=== PATIENT | male | born 1955 | race Caucasian/White ===

== ENCOUNTER → 2024-07-25 | Outpatient (CLI) | payer MEDICARE, OTHER, SELFPAY ==
--- NOTE | 2024-07-25 08:44 | VDLE_ITS ---
Reason For Study Reason For Study: Pain RIGHT LEFT CFV is compressible, spontaneous, phasic, competent CFV is compressible, spontaneous, phasic, competent, and demonstrates normal augmentation. and demonstrates normal augmentation. FV is compressible, spontaneous, phasic, competent FV is compressible, spontaneous, phasic, competent and demonstrates normal augmentation. and demonstrates normal augmentation. POP V is compressible, spontaneous, phasic, competent POP V is compressible, spontaneous, phasic, competent and demonstrates normal augmentation. and demonstrates normal augmentation. T/P Trunk is compressible. T/P Trunk is compressible. PTV is compressible. PTV is compressible. RT PerV is compressible. LT PerV is compressible. SFJ is INCOMPETENT and measures 0.99 cm. SFJ is INCOMPETENT and measures 0.82 cm. GSV proximal thigh measures 0.97x0.99 cm. GSV proximal thigh measures 0.70x0.77 cm. GSV at knee measures 0.74x0.77 cm. GSV at knee measures 0.15x0.20 cm. GSV INCOMPETENT throughout for greater than 0.5 GSV INCOMPETENT throughout for greater than 0.5 seconds. seconds. ASV proximal calf is INCOMPETENT for greater than 0.5 GSV at knee to mid calf no flow detected. seconds and measures 0.34x0.43 cm. ASV at knee connects to feed GSV mid calf. SSV mid calf is competent and measures 0.27x0.32 cm. ASV at knee is INCOMPETENT for greater than 0.5 GSV train master at proximal calf measuring 32cm from seconds and measures 0.56x0.65 cm. medial malleolusis INCOMPETENT for greater than 0.5 ASV proximal thigh is INCOMPETENT for greater than seconds. 0.5 seconds and measures 0.32x0.38 cm. Procedure SSV mid calf is competent and measures 0.17x0.16 cm. This is a venous duplex using B-mode, color flow and spectral Doppler. Exam performed in department. The exam was diagnostic. Patient was scanned in reverse Trendelenburg position during reflux assessment. VL/Venous Duplex US - Neeraj Extrem Interpretation Summary Deep veins of the bilateral lower extremity are patent and compressible segment ally. There is no evidence of bilateral lower extremity deep vein thrombosis. The bilateral great saphenous veins appea r patent and compressible segmentally. Positive for reflux in the right saphenofemoral junction, great saphenous vein throughout, accessory saphenous vein in calf, and proximal calf train master. Positive for reflux in the left saphenofemoral junction, great saphenous vein t hroughout, accessory saphenous vein proximal thigh, accessory saphenous vein at knee Ordering Physician: Lizbeth Guevara Referring Physician: Denton Connor DO Performed By: Jaylene Le RVT and Student
== END | disposition home or self-care (01) ==
LOC: CVS 08:43
PROVIDERS: PCP Family Medicine; Referring Provider Physician Assistant; Visit Provider Physician Assistant
DX: I83.11 Varicose veins of right lower extremity with inflammation (principal); I83.12 Varicose veins of left lower extremity with inflammation; I83.893 Varicose veins of bilateral lower extremities with other complications
CPT/HCPCS: 93970

== ENCOUNTER → 2024-08-12 | Outpatient (CLI) | payer MEDICARE, OTHER, SELFPAY ==
--- NOTE | 2024-08-12 10:42 | VDLE_ITS ---
Reason For Study Reason For Study: Pain RIGHT LEFT GSV is normal. CFV is compressible, spontaneous, phasic, competent, CFV is compressible, spontaneous, phasic, competent and demonstrates normal augmentation. and demonstrates normal augmentation. FV is compressible, spontaneous, phasic, competent and demonstrates normal augmentation. POP V is compressible, spontaneous, phasic, competent and demonstrates normal augmentation. T/P Trunk is compressible. PTV is compressible. RT PerV is compressible. Thrombus filled varicose veins noted in the Rt prox calf to knee. Procedure This is a venous duplex using B-mode, color flow and spectral Doppler. Exam performed in department. A preliminary report was called and/or faxed to SAMEER Burnett. VL/Venous Duplex US, Unilateral Interpretation Summary Thrombus filled varicose veins noted in the right proximal calf to knee. Deep veins of the right lower extremity are patent and compressible segmentally . There is no evidence of right lower extremity deep vein thrombosis. The right great saphenous vein appears patent a nd compressible segmentally. Ordering Physician: Lizbeth Guevara Referring Physician: Lizbeth Guevara Performed By: Joy Braxton RVT
== END | disposition home or self-care (01) ==
LOC: CVS 10:32
PROVIDERS: PCP Family Medicine; Referring Provider Physician Assistant; Visit Provider Physician Assistant
DX: M79.89 Other specified soft tissue disorders (principal); M79.604 Pain in right leg
CPT/HCPCS: 93971

== ENCOUNTER → 2024-09-28 | Outpatient (CLI) | payer MEDICARE, OTHER, SELFPAY ==
--- NOTE | 2024-09-28 12:53 | VDLE_ITS ---
Reason For Study Reason For Study: LE Pain RIGHT LEFT Rt GSV is DILATED and NONCOMPRESSIBLE from CFV is compressible, spontaneous, phasic, competent, approximately 0.96cm distal to SFJ and ending and demonstrates normal augmentation. approximately mid calf. CFV is compressible, spontaneous, phasic, competent and demonstrates normal augmentation. FV is compressible, spontaneous, phasic, competent and demonstrates normal augmentation. POP V is compressible, spontaneous, phasic, competent and demonstrates normal augmentation. T/P Trunk is compressible. PTV is compressible. RT PerV is compressible. Procedure This is a venous duplex using B-mode, color flow and spectral Doppler. Exam performed in department. Compare to study 08/12/2024. The exam was diagnostic. A preliminary report was called and/or faxed to [facility] Gue[facility]a [facility]. VL/Venous Duplex US, Unilateral Interpretation Summary Acute superficial vein thrombosis noted at saphenofemoral junction and great sa phenous vein throughout. Deep veins of the right lower extremity are patent and compressible segmentally . There is no evidence of right lower extremity deep vein thrombosis. Ordering Physician: Lizbeth Guevara Referring Physician: Denton Connor Performed By: Jeromy Paredes RVT
== END | disposition home or self-care (01) ==
LOC: CVS 12:52
PROVIDERS: PCP Family Medicine; Referring Provider Physician Assistant; Visit Provider Physician Assistant
DX: I82.811 Embolism and thrombosis of superficial veins of right lower extremity (principal); I87.2 Venous insufficiency (chronic) (peripheral)
CPT/HCPCS: 93971

== ENCOUNTER → 2024-11-09 | Outpatient (CLI) | payer MEDICARE, OTHER, SELFPAY ==
--- NOTE | 2024-11-09 09:47 | VDLE_ITS ---
Reason For Study Reason For Study: RLE PAIN RIGHT Rt GSV is DILATED and NONCOMPRESSIBLE from approximately 1.26cm distal to SFJ and ending approximately proximal calf. CFV is compressible, spontaneous, phasic, competent and demonstrates normal augmentation. FV is compressible, spontaneous, phasic, competent and demonstrates normal augmentation. POP V is compressible, spontaneous, phasic, competent and demonstrates normal augmentation. T/P Trunk is compressible. PTV is compressible. RT PerV is compressible. Procedure This is a venous duplex using B-mode, color flow and spectral Doppler. Exam performed in department. A preliminary report was called and/or faxed to Lizbeth ESTRELLA @ 10:15 @ [phone]. VL/Venous Duplex US, Unilateral Interpretation Summary Acute superficial vein thrombosis noted at saphenofemoral junction and great sa phenous vein throughout. Negative for propagation. Deep veins of the right lower extremity are patent and compressible segmentally . There is no evidence of right lower extremity deep vein thrombosis. Ordering Physician: Lizbeth Guevara Referring Physician: Denton Connor Performed By: Michela Talbert, AGUILAR, RVT
--- OUTSIDE RECORDS SUMMARY | 2024-11-09 20:36 | XMS RPT_ITS | CCD ---
Author Organization [facility] Team Providers Care Ancillary Services Manager Name Role Phone Rodanthe, Sana S Unavailable Unavailable Rodanthe, Sana S Unavailable Unavailable Rodanthe, Sana S Unavailable Unavailable Rodanthe, Sana S Unavailable Unavailable Rodanthe, Sana S Unavailable Unavailable Rodanthe, Sana S Unavailable Unavailable Rodanthe, Sana Unavailable Unavailable Rodanthe, Sana S Unavailable Unavailable Rocky, Avirup Unavailable Unavailable Rocky, Avirup Unavailable Unavailable Rodanthe, Sana S Unavailable Unavailable Unavailable , Dr. Sana Hernández Attending Unavailabl e Rodanthe, Dr. Sana Hernández Referring Unavailabl e Rodanthe, Dr. Sana Hernández Primary Care Unavailabl e Cueto II, Dr. Jaspal Levi Attending Jose Ramon Cueto II, Dr. Jaspal Levi Referring Jose Ramon Dexter, Dr. Sana Hernández Primary Care Unavailabl e Rodanthe DO, Sana S Primary Care Provider [phone] Rodanthe DO, Sana S Unavailable [phone] ROYAL, SANA S Primary Care Unavailable ROYAL, SANA S Primary Care Unavailable ROYAL, SANA S Primary Care Unavailable ROYAL, SANA S Primary Care Unavailable ROYAL, SANA S Primary Care Unavailable ROYAL, SANA S Primary Care Unavailable Rodanthe DO, Sana S Primary Care Provider [phone] Rodanthe DO, Sana S Unavailable ROYAL, SANA S Attending Unavailable ROYAL, SANA S Primary Care Unavailable ROYAL, SANA S Attending Unavailable ROYAL, SANA S Primary Care Unavailable ROYAL, SANA S Attending Unavailable ROYAL, SANA S Referring Unavailable ROYAL, SANA S Primary Care Unavailable ALESHIA ELAINE Attending Unavailable ROYAL, SANA S Referring Unavailable ROYAL, SANA S Primary Care Unavailable ROYAL, SANA S Attending Unavailable ROYAL, SANA S Primary Care Unavailable ROYAL, SANA S Attending Unavailable ROYAL, SANA S Referring Unavailable ROYAL, SANA S Primary Care Unavailable Reji DO, Harvinder R. Primary Care Provider REJI, HARVINDER R. Referring Unavailable REJI, HARVINDER R. Attending Unavailable REJI, HARVINDER R. Primary Care Unavailable Reji DO, Dr. Chawla Primary Care Provider Reji DO, Dr. Chawla Referring Provider [phone] Lizbeth Hughes Attending Provider Lizbeth Hughes Referring Provider Charles SAUNDERS, Dr. Blount Attending Provider [phone] REJI, HARVINDER RBrett Attending Unavailable REJI, HARVINDER R. Primary Care Unavailable REJI, HARVINDER R. Attending Unavailable REJI, HARVINDER R. Primary Care Unavailable Rodanthe DO, Sana S Unavailable Reji DO, Harvinder Primary Care Provider ROYAL, SANA S Referring Unavailable ROYAL, SANA S Primary Care Unavailable TAWANA ELAINEE M Referring Unavailable ROYAL, SANA S Primary Care Unavailable ALESHIA ELAINE M Referring Unavailable ROYAL, SANA S Primary Care Unavailable ALESHIA ELAINE M Referring Unavailable ROYAL, SANA S Primary Care Unavailable TAWANA ELAINEE M Referring Unavailable ROYAL, SANA S Primary Care Unavailable AMERICA ELAINEANNE M Referring Unavailable ROYAL, SANA S Primary Care Unavailable AMERICA ELAINEANNE M Referring Unavailable ROYAL, SANA S Primary Care Unavailable AMERICA ELAINEANNE M Referring Unavailable ROYAL, SANA S Primary Care Unavailable AMERICA ELAINEANNE M Referring Unavailable ROYAL, SANA S Primary Care Unavailable REJI, HARVINDER Primary Care Unavailable OLLIE JOHNSON Attending Unavailable Guevara, Lizbeth Attending Unavailable Reji, Harvinder Primary Care Unavailable Reji, Harvinder Referring Unavailable Reji, Harvinder Primary Care Unavailable Guevara, Lizbeth Attending Unavailable Reji, Harvinder Referring Unavailable Guevara, Lizbeth Referring Unavailable Jose Alejandro Soto Attending Unavailable Reji, Harvinder Primary Care Unavailable Reji, Harvinder Primary Care Unavailable Guveara, Lizbeth Attending Unavailable Guevara, Libzeth Referring Unavailable Guevara, Lizbeth Referring Unavailable Guevara, Lizbeth Attending Unavailable Reji, Harvinder Primary Care Unavailable Guevara, Lizbeth Referring Unavailable Guevara, Lizbeth Attending Unavailable Reji, Harvinder Primary Care Unavailable Guevara, Lizbeth Referring Unavailable Guevara, Lizbeth Attending Unavailable Reji, Harvinder Primary Care Unavailable Guevara, Lizbeth Attending Unavailable Guevara, Lizbeth Referring Unavailable Reji, Harvinder Primary Care Unavailable Guevara, Lizbeth Referring Unavailable Charles, Jose Alejandro Attending Unavailable Reji, Harvinder Primary Care Unavailable Reji, Harvinder Primary Care Unavailable Guevara, Lizbeth Referring Unavailable Charles, Jose Alejandro Attending Unavailable Guevara, Lizbeth Attending Unavailable Reji, Harvinder Referring Unavailable Reji, Harvinder Primary Care Unavailable Guevara, Lizbeth Attending Unavailable Reji, Harvinder Primary Care Unavailable Reji, Harvinder Referring Unavailable Allergies Allergy Classification Reported Allergen(s) Allergy Type Date of Onset Reaction(s) Facility Penicillins (antibiotic) (3 sources) Penicillins; Translations: [Penicillins] Drug Allergy [facility] Work Phone: (20 sources) Penicillins; Translations: [penicillins] Propensity to adverse reactions to drug (disorder) 3 [facility], Unknown, [facility] Repository (4 sources) Bee Venom Protein (Honey Bee); Translations: [BEE VENOM PROTEIN (HONEY BEE)] Propensity to adverse reactions to drug 5 [facility] (4 sources) Penicillin G Drug Allergy 5 [facility] (1 source) Penicillin Drug Allergy [address] [place] [address] Repository Medications Current Medications Medication Drug Class(es) Dates Sig (Normalized) Sig (Original) [id number] 200 actuat albuterol 0.09 mg/actuat metered dose inhaler (1 source) beta2-Adrenergic Agonist Start: 08-26-2024 take 1-2 puff(s) by inhalation every four hours for wheezing albuterol 90 mcg/actuation inhaler Indications: Acute bronchitis, unspecified organism Inhale 1-2 puffs every 4 hours if needed for wheezing or shortness of breath. 8.5 g 08/26/2024 Active Start: 08-26-2024 take 1-2 puff(s) by inhalation every four hours for wheezing albuterol 90 mcg/actuation inhaler Indications: Acute bronchitis, unspecified organism Inhale 1-2 puffs every 4 hours if needed for wheezing or shortness of breath. 8.5 g 08/26/2024 Active Ascorbate Calcium (Vitamin C) 500 mg capsule (4 sources) Start: 06-29-2024 take 1 g by mouth once daily Ascorbate Calcium (Vitamin C) 500 mg capsule Active 1 g PO daily June 29, 2024 1:00am Start: 06-29-2024 take 1 g by mouth once daily A scorbate Calcium (Vitamin C) 500 mg capsule Discontinued 1 g PO daily June 29, 2024 1:00am ascorbic acid 500 mg oral tablet (18 sources) Vitamin C take 1 tablet by desiree th once daily ascorbic acid (Vitamin C) 500 mg tablet Take 1 tablet (500 mg) by mouth once daily. Active Vitamin C TABS T UZIEL 1 TABLET DAILY. Refills: 0 DO Active Vitamin C TABS T UZIEL 1 TABLET DAILY. Refills: 0 Active aspirin 81 mg delayed release oral tablet (20 sources) Platelet Aggregation Inhibitor, Nonsteroidal Anti-inflammatory Drug Start: 11-28-2019 Aspirin (Adult Lo w Dose Aspirin) 81 mg tablet,delayed release (DR/EC) Active 81 mg PO daily June 14, 2024 1:00am Start: 11-28-2019 aspirin 81 MG EC tablet Take 321 mg by mouth daily Vascular dr changed . 11/28/2019 Active atorvastatin 40 mg oral tablet (20 sources) HMG-CoA Reductase Inhibitor Start: 05-20-2023 End: 08-16-2024 take 1 tablet by mouth once daily atorvastatin (Lipitor) 40 mg tablet Indications: Hyperlipidemia LDL goal Take 1 tablet (40 mg) by mouth once daily. 90 tablet 1 08/17/2023 08/16/2024 Active Start: 11-17-2022 take 1 tablet by desiree th once daily atorvastatin (Lipitor) 40 mg tablet Indications: Hyperlipidemia LDL goal Take 1 tablet (40 mg) by mouth once daily. 90 tablet 3 11/17/2022 Active Start: 11-14-2019 End: 11-17-2022 take 1 tablet by mouth once daily Atorvastatin Calcium 40 MG Oral Tablet TAKE 1 TABLET BY MOUTH EVERY DAY Quantity: 90 Refills: 1 Ordered: 18-Apr-2022 Sana Dexter DO Start : 14-Nov-2019 Active azithromycin 250 mg oral tablet (1 source) Macrolide Antimicrobial Start: 08-26-2024 azithromycin (Zithromax Z-Santosh) 250 mg tablet Indications: Acute bronchitis, unspecified organism Take 2 tablets by mouth at once on day 1, then 1 tablet once a day on days 2-5. Take with a meal. 6 tablet 08/26/2024 Active Start: 08-26-2024 azithromycin ( Zithromax Z-Santosh) 250 mg tablet Indications: Acute bronchitis, unspecified organism Take 2 tablets by mouth at once on day 1, then 1 tablet once a day on days 2-5. Take with a meal. 6 tablet 08/26/2024 Active benzonatate 100 mg oral capsule (1 source) Non-narcotic Antitussive Start: 08-26-2024 take 1-2 capsules by mouth every eight hours for cough benzonatate (Tessalon) 100 mg capsule Indications: Acute bronchitis, unspecified organism Take 1-2 capsules (100-200 mg) by mouth every 8 hours if needed for cough. Do not crush or chew. 40 capsule 08/26/2024 Active Start: 08-26-2024 take 1-2 capsules by mouth every eight hours for cough benzonatate (Tessalon) 100 mg capsule Indications: Acute bronchitis, unspecified organism Take 1-2 capsules (100-200 mg) by mouth every 8 hours if needed for cough. Do not crush or chew. 40 capsule 08/26/2024 Active diclofenac sodium 0.01 mg/mg topical gel (4 sources) Nonsteroidal Anti-inflammatory Drug Start: 11-02-2023 diclofenac sodium (Voltaren) 1 % gel Indications: osteoarthritis Apply 2.25 inches (2 g) topically 4 times a day as needed (Pain, Stiffness, & swelling). 100 g 1 11/02/2023 Active docosahexaenoic acid/epa (FISH OIL ORAL) (8 sources) docosahexaenoic acid/epa (FISH OIL ORAL) Take by mouth. Active ezetimibe 10 mg oral tablet (2 sources) Dietary Cholesterol Absorption Inhibitor Start: 04-18-2024 End: 05-12-2025 take 1 tablet by mouth once daily ezetimibe (Zetia) 10 mg tablet Indications: Hyperlipidemia LDL goal Take 1 tablet (10 mg) by mouth once daily. 90 tablet 1 05/12/2024 05/12/2025 Active lisinopril 10 mg oral tablet (20 sources) Angiotensin Converting Enzyme Inhibitor Start: 06-29-2024 take 1 tablet by mouth once daily Lisinopril 10 mg tablet Active 10 mg PO daily June 29, 2024 1:00am Start: 11-17-2022 take 2 tablets by mo [facility] once daily lisinopril 10 mg tablet Indications: Secondary hypertension Take 2 tablets (20 mg) by mouth once daily. 90 tablet 3 11/17/2022 Active Start: 11-14-2019 End: 08-16-2024 take 1 tablet by mouth once daily Lisinopril 20 mg tablet Active 20 mg PO daily June 14, 2024 1:00am Start: 11-14-2019 take 1 tablet by desiree once daily Lisinopril 10 MG Oral Tablet TAKE 1 TABLET BY MOUTH EVERY DAY Quantity: 90 Refills: 1 Ordered: 18-Apr-2022 Sana Dexter DO Start : 14-Nov-2019 Active End: 11-17-2022 take 2 tablets by mouth once daily lisinopril 10 mg tablet Take 2 tablets (20 mg) by mouth once daily. 0 11/17/2022 Discontinued (Reorder) lutein 40 mg oral capsule (4 sources) Start: 06-29-2024 take 1 capsule by mouth once daily at mealtime Lutein 40 mg capsule Active 40 mg PO daily June 29, 2024 1:00am administer with meals magnesium oxide 300 mg magnesium Tab (2 sources) magnesium oxide 300 mg magnesium Tab Take 1 tablet by mouth Thursday, Thursday, Thursday . Active magnesium oxide 300 mg magnesium tablet (10 sources) take 1 tablet by mouth three times weekly magnesium oxide 300 mg magnesium tablet Take 1 tablet by mouth 3 times a week. Active take 1 tablet by desiree three times weekly magnesium oxide 300 mg magnesium tablet Take 1 tablet by mouth 3 times a week. 0 Active Magnesium Oxide 300 mg magne sium tablet (4 sources) Start: 06-29-2024 Magnesium Oxid e 300 mg magnesium tablet Active 300 mg PO .wkly June 29, 2024 1:00am Start: 06-29-2024 Magnesium Oxid e 300 mg magnesium tablet Discontinued 300 mg PO .wkly June 29, 2024 1:00am omega-3 fatty acids-fish oil (One-Per-Day Mcgraws-3) 684-1,200 mg capsule (2 sources) End: 08-17-2023 omega-3 fatty acids-fish oil (One-Per-Day Mcgraws-3) 684-1,200 mg capsule Take by mouth. 0 08/17/2023 Discontinued (Med List Cleanup) omega-3 fatty ac ids-fish oil (One-Per-Day Mcgraws-3) 684-1,200 mg capsule Take by mouth. 0 Active pantoprazole 20 mg delayed release oral tablet (1 source) Proton Pump Inhibitor Start: 08-22-2024 take 1 tablet by mouth once daily pantoprazole (PROTONIX) 20 MG tablet Indications: Gastroesophageal reflux disease, unspecified whether esophagitis present Take 1 (one) tablet (20 mg total) by mouth daily . 30 tablet 3 08/22/2024 Active predniSONE 10 mg oral tablet (1 source) Start: 08-26-2024 take 6 tablets by mouth once daily, then take 5 tablets by mouth once daily, then take 4 tablets by mouth once daily, then take 3 tablets by mouth once daily, then take 2 tablets by mouth once daily, then take 1 tablet by mouth once daily predniSONE (Deltasone) 10 mg tablet Indications: Acute bronchitis, unspecified organism Take 6 tabs PO daily x1 day, then take 5 tabs daily x1 day, then take 4 tabs daily x1 day, then take 3 tabs daily x1 day, then take 2 tabs daily x1 day, then take 1 tab daily x1 day. Take with a meal. 21 tablet 08/26/2024 Active Start: 08-26-2024 take 6 tablets by mo ut once daily, then take 5 tablets by mouth once daily, then take 4 tablets by mouth once daily, then take 3 tablets by mouth once daily, then take 2 tablets by mouth once daily, then take 1 tablet by mouth once daily predniSONE (Deltasone) 10 mg tablet Indications: Acute bronchitis, unspecified organism Take 6 tabs PO daily x1 day, then take 5 tabs daily x1 day, then take 4 tabs daily x1 day, then take 3 tabs daily x1 day, then take 2 tabs daily x1 day, then take 1 tab daily x1 day. Take with a meal. 21 tablet 08/26/2024 Active rivaroxaban 20 mg oral tablet (2 sources) Factor Xa Inhibitor Start: 09-06-2024 take 1 tablet by mouth once daily at dinner Rivaroxaban (Xarelto) 20 mg tablet Active 20 mg PO daily September 06, 2024 12:00am must administer with evening meal vit A/vit C/vit E/zinc/copper (ICAPS AREDS ORAL) (11 sources) vit A/vit C/vit E/zinc/copper (ICAPS AREDS ORAL) Take by mouth. Active vit A/vit C/vit E/zinc/copper (ICAPS AREDS ORAL) Take by mouth. 0 Active vitamin b12 1 mg oral tablet (4 sources) Vitamin B12 take 1 tablet by mouth once daily cyanocobalamin (Vitamin B-12) 1,000 mcg tablet Take 1 tablet (1,000 mcg) by mouth once daily. OTC Active Zinc (10 sources) take 1 tablet by mouth four times weekly ZINC ORAL Take 1 tablet by mouth 4 times a week. 20mg Active take 1 tablet by mouth four time s weekly ZINC ORAL Take 1 tablet by mouth 4 times a week. Active take 1 tablet by mouth four time s weekly ZINC ORAL Take 1 tablet by mouth 4 times a week. 0 Active zinc glycinate (4 sources) Start: 06-29-2024 Zinc Glycinate 20 mg capsule Active 20 mg PO .wkly June 29, 2024 1:00am Start: 06-29-2024 Zinc Glycinate 20 mg capsule Discontinued 20 mg PO .wkly June 29, 2024 1:00am Completed/Discontinued Medications Medication Drug Class(es) Dates Sig (Normalized) Sig (Original) Cholecalciferol (7 sources) Vitamin D Vitamin D TABS T UZIEL DIRECTED. Refills: 0 DO Active Vitamin D TABS T UZIEL DIRECTED. Refills: 0 Active metoprolol tartrate 50 mg oral tablet (4 sources) beta-Adrenergic Karla Start: 11-28-2019 Metopr olol Tartrate 50 MG Oral Tablet TAKE THE NIGHT PRIOR TO EXAM Quantity: 1 Refills: 0 Virginia Hidalgo MD Start : 28-Nov-2019 Active Multi-Vitamins TABS (7 sources) Multi-Vitamins T ABS TAKE 1 TABLET DAILY. Refills: 0 DO Active Multi-Vitamins T ABS TAKE 1 TABLET DAILY. Refills: 0 Active Multi-Vitamins TABS (11 sources) Multi-Vitamins T ABS TAKE 1 TABLET DAILY. Quantity: 0 Refills: 0 Ordered: 18-Jul-2019 DO Active Mcgraws 3 CAPS (4 sources) Mcgraws 3 CAPS DANIEL E DIRECTED. Refills: 0 DO Active Mcgraws 3 CAPS DANIEL E DIRECTED. Refills: 0 Active Mcgraws 3 CAPS (11 sources) Mcgraws 3 CAPS DANIEL E DIRECTED. Quantity: 0 Refills: 0 Ordered: 18-Jul-2019 DO Active Mcgraws 3 CAPS (3 sources) Mcgraws 3 CAPS DANIEL E DIRECTED. Refills: 0 DO Active Mcgraws 3 CAPS DANIEL E DIRECTED. Refills: 0 Active Vitamin C TABS (11 sources) Vitamin C TABS T UZIEL 1 TABLET DAILY. Quantity: 0 Refills: 0 Ordered: 18-Jul-2019 DO Active Problems Active Problems Problem Classification Problem Date Documented Date Episodic/Chronic Acute bronchitis (3 sources) Acute bronchitis; Translations: [Acute bronchitis, unspecified] Onset: 08-27-1908-26-2024 Episodic Allergic reactions (12 sources) Non-celiac gluten sensitivity; Translations: [Celiac disease] Onset: 09-14-19 24 09-14-2023 Chronic Cancer; other and unspecified primary (7 sources) History of neoplasm of uncertain behavior; Translations: [Personal history of other specified diseases] Episodic Coronary atherosclerosis and other heart disease (7 sources) Calcification of coronary artery; Translations: [Elevated coronary artery calcium score] Chronic Disorders of lipid metabolism (20 sources) Hyperlipidemia; Translations: [Other and unspecified hyperlipidemia] Onset: 11-18-19 23 11-17-2022 Chronic E Codes: Adverse effects of medical drugs (2 sources) Adverse effect of antihyperlipidemic and antiarteriosclerotic drugs, initial encounter; Translations: [Adverse effect of antihyperlipidemic and antiarteriosclerotic drugs, initial encounter] Onset: 04-18-20 Episodic Esophageal disorders (17 sources) Gastroesophageal reflux disease without esophagitis; Translations: [Gastro-esophageal reflux disease without esophagitis] Onset: 09-14-19 24 09-14-2023 Chronic Essential hypertension (20 sources) Hypertensive disorder; Translations: [Unspecified essential hypertension] Onset: 11-18-19 23 11-17-2022 Chronic Hypertension with complications and secondary hypertension (6 sources) Secondary hypertension; Translations: [Secondary hypertension, unspecified] Onset: 11-18-19 23 11-17-2022 Chronic Immunizations and screening for infectious disease (11 sources) Patient encounter status; Translations: [Other specified vaccination] Episodic Nonspecific chest pain (9 sources) Atypical chest pain; Translations: [Other chest pain] Episodic Nutritional deficiencies (5 sources) Cobalamin deficiency; Translations: [Deficiency of other specified B group vitamins] Onset: 05-30-19 25 05-30-2024 Episodic Osteoarthritis (9 sources) Disorder of acromioclavicular joint; Translations: [Primary osteoarthritis, unspecified shoulder] Onset: 11-02-1911-02-2023 Chronic Other connective tissue disease (3 sources) Pain in right lower limb; Translations: [Pain in right leg] 08-12-2024 Episodic Other connective tissue disease (2 sources) Pain in right leg; Translations: [Pain in right leg] Onset: 09-29-19 Episodic Other connective tissue disease (1 source) Other specified soft tissue disorders; Translations: [Other specified soft tissue disorders] Onset: 08-19-19 Episodic Other diseases of veins and lymphatics (14 sources) Peripheral venous insufficiency; Translations: [Venous insufficiency (chronic) (peripheral)] 06-29-2024 Episodic Other diseases of veins and lymphatics (2 sources) Disorder of vein of lower extremity; Translations: [Venous insufficiency (chronic) (peripheral)] 09-28-2024 Episodic Other diseases of veins and lymphatics (2 sources) Venous insufficiency (chronic) (peripheral); Translations: [Venous insufficiency (chronic) (peripheral)] Onset: 09-07-19 Episodic Other liver diseases (20 sources) Steatosis of liver; Translations: [Other chronic nonalcoholic liver disease] Onset: 11-18-19 23 11-17-2022 Chronic Other liver diseases (7 sources) Enzyme level - finding; Translations: [Rising PSA remaining within normal limits] Episodic Other lower respiratory disease (1 source) Cough; Translations: [Subacute cough] 08-22-2024 Episodic Other lower respiratory disease (1 source) Cough; Translations: [Cough] Onset: 08-23-1908-22-2024 Episodic Other nervous system disorders (4 sources) Other chronic pain; Translations: [Other chronic pain] Onset: 10-19-19 Chronic Other nervous system disorders (3 sources) Drug-induced myopathy; Translations: [Drug-induced myopathy] Onset: 04-18-2004-18-2024 Episodic Other non-traumatic joint disorders (11 sources) Polyarthropathy; Translations: [Polyarthritis, unspecified] Onset: 09-14-19 24 09-14-2023 Chronic Other non-traumatic joint disorders (4 sources) Polyarthritis, unspecified; Translations: [Polyarthritis, unspecified] Onset: 09-14-19 Chronic Other nutritional; endocrine; and metabolic disorders (7 sources) Obesity; Translations: [Obesity, unspecified] Chronic Other nutritional; endocrine; and metabolic disorders (11 sources) Body mass index 25-29 - overweight; Translations: [Body Mass Index 29.0-29.9, adult] Onset: 06-03-1905-30-2024 Episodic Other nutritional; endocrine; and metabolic disorders (3 sources) Overweight in adulthood with body mass index of 25 or more but less than 30; Translations: [Body Mass Index 29.0-29.9, adult] Episodic Other nutritional; endocrine; and metabolic disorders (2 sources) Overweight; Translations: [Overweight] Onset: 05-30-19 Episodic Other skin disorders (3 sources) Alopecia totalis; 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] Onset: 06-03-19 25 05-30-2024 Episodic Other skin disorders (2 sources) Alopecia (capitis) totalis; 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] Onset: 05-30-19 Episodic Phlebitis; thrombophlebitis and thromboembolism (11 sources) Acute thrombosis of superficial vein of lower limb; Translations: [Embolism and thrombosis of superficial veins of right lower extremity] Onset: 10-05-1908-12-2024 Episodic Residual codes; unclassified (20 sources) Obstructive sleep apnea syndrome; Translations: [Obstructive sleep apnea (adult)(pediatric)] Onset: 11-18-19 23 11-17-2022 Chronic Spondylosis; intervertebral disc disorders; other back problems (16 sources) Cervical arthritis; Translations: [Spondylosis without myelopathy or radiculopathy, cervical region] Onset: 11-02-19 24 11-02-2023 Chronic Unclassified (8 sources) Patient encounter status; Translations: [Screening for colorectal cancer] 06-03-2024 Varicose veins of lower extremity (12 sources) Varicose veins of lower extremity; Translations: [Varicose veins of bilateral lower extremities with other complications] Onset: 08-05-1906-29-2024 Episodic Past or Other Problems Problem Classification Problem Date Documented Date Episodic/Chronic Diabetes mellitus without complication (20 sources) Hyperglycemia; Translations: [Other abnormal glucose] Onset: 11-17-2022 Resolved: 08-17-2023 11-17-2022 Episodic Genitourinary symptoms and ill-defined conditions (3 sources) Nocturia; Translations: [Nocturia] Onset: 08-14-2023 Episodic Heart valve disorders (20 sources) Heart murmur; Translations: [Undiagnosed cardiac murmurs] Onset: 11-17-2022 11-17-2022 Episodic Malaise and fatigue (14 sources) Fatigue; Translations: [Other fatigue] Onset: 09-14-2023 09-14-2023 Episodic Mood disorders (4 sources) Mood disorders Onset: 05-30-2024 05-30-2024 Other liver diseases (4 sources) Abnormal levels of other serum enzymes; Translations: [Abnormal levels of other serum enzymes] Onset: 11-30-2023 Episodic Other liver diseases (5 sources) Increased creatine kinase level; Translations: [Abnormal levels of other serum enzymes] Onset: 11-30-2023 04-18-2024 Episodic Other nervous system disorders (4 sources) Drug-induced myopathy; Translations: [Toxic myopathy] Onset: 04-18-2024 Episodic Other non-traumatic joint disorders (13 sources) Bilateral chronic pain of upper limbs; Translations: [Pain in right shoulder] Onset: 10-19-2023 10-19-2023 Episodic Other non-traumatic joint disorders (3 sources) Decreased range of shoulder movement; Translations: [Stiffness of unspecified shoulder, not elsewhere classified] Onset: 11-09-2023 11-09-2023 Episodic Other non-traumatic joint disorders (4 sources) Pain in right shoulder; Translations: [Pain in right shoulder] Onset: 10-19-2023 Episodic Other non-traumatic joint disorders (4 sources) Pain in left shoulder; Translations: [Pain in left shoulder] Onset: 10-19-2023 Episodic Other non-traumatic joint disorders (2 sources) Stiffness of unspecified shoulder, not elsewhere classified; Translations: [Stiffness of unspecified shoulder, not elsewhere classified] Onset: 11-09-2023 Episodic Other screening for suspected conditions (not mental disorders or infectious disease) (20 sources) Cardiovascular stress test abnormal; Translations: [Patient encounter status] Onset: 11-17-2022 11-17-2022 Episodic Other skin disorders (16 sources) Alopecia areata; Translations: [Alopecia areata] Onset: 11-17-2022 11-17-2022 Episodic Residual codes; unclassified (4 sources) Heavy drinker ; Translations: [Other specified health status] Onset: 11-30-2023 11-30-2023 Episodic Residual codes; unclassified (2 sources) Other specified health status; Translations: [Other specified health status] Onset: 11-30-2023 Episodic Spondylosis; intervertebral disc disorders; other back problems (14 sources) Chronic neck pain; Translations: [Cervicalgia] Onset: 10-19-2023 10-19-2023 Episodic Unclassified (11 sources) Onset: 11-17-2022 Resolved: 04-18-2024 11-17-2022 NEGATED: Highlighted row has not occurred!Residual codes; unclassified (20 sources) Disease Episodic Results Test Name Value Interpretation Reference Range Facility Venous duplex ultrasound rep ortOrdered By: Jose Alejandro Soto on 09-29-2024 US Vein [facility] [address] [place] [address] Venous Duplex US, Unilateral 09/28/24 1259 MR#: [id number] Acct: [id number] Name: NANCIE SÁNCHEZ Rep #:[id number] : 1955 69 From: Jose Alejandro Cunha Attending Dr: SAMEER Burnett Stat us: REG CLI Ordering Dr: Lizbeth Guevara Date: Location: [facility] Sex: M C Admitted: Reason For Study Reason For Study: LE Pain RIGHT LEFT Rt GSV is DILATED and NONCOMPRESSIBLE from CFV is compressible, spontaneous, phasic, competent, approximately 0.96cm distal to SFJ and ending and demonstrates normal augmentation. approximately mid calf. CFV is compressible, spontaneous, phasic, competent and demonstrates normal augmentation. FV is compressible, spontaneous, phasic, competent and demonstrates normal augmentation. POP V is compressible, spontaneous, phasic, competent and demonstrates normal augmentation. T/P Trunk is compressible. PTV is compressible. RT PerV is compressible. Procedure This is a venous duplex using B-mode, color flow and spectral Doppler. Exam performed in department. Compare to study 08/12/2024. The exam was diagnostic. A preliminary report was called and/or faxed to Lizbeth ESTRELLA. VL/Venous Duplex US, Unilateral Interpretation Summary Acute superficial vein thrombosis noted at saphenofemoral junction and great saphenous vein throughout. Deep veins of the right lower extremity are patent and compressible segmentally.There is no evidence of right lower extremity deep vein thrombosis. 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 [place] [address] OFFICE VISIT Date of Service: 09/28/24 MR#: [id number] Acct: [id number] Name: NANCIE SÁNCHEZ Rep #: [id number] : 1955 Provider: SAMEER Burnett Age/Sex: 69/M Location: [facility] [place] Status: Signed Intake Vital Signs 09/28/24 13:52 Weight: 222 lb BP 137/75 H Blood Pressure Location Lt brachial Position Sitting Respiration 16 Pulse 76 Pulse Source Monitor Temp 97.5 F L Temp Source Temporal Pulse Oximetry (%) 97 Oxygen Delivery Method room air Intake Visit Reasons: 3 M FU Is patient in pain?: No Allergies penicillin G Allergy (Severe, Verified 09/28/24 13:54) Rash Medications ???Medication ???Instructions ???Recorded ???Confirmed ???Type aspirin 81 mg tablet,delayed 81 mg PO QDAY 06/14/24 09/28/24 Hi story release (Adult Low Dose Aspirin) lisinopril 20 mg tablet 20 mg PO QDAY 06/14/24 09/28/24 Hi story ascorbate calcium (vitamin C) 500 1 g PO QDAY 06/29/24 09/28/24 His tory mg capsule lisinopril 10 mg tablet 10 mg PO QDAY 06/29/24 09/28/24 Hi story lutein 40 mg capsule 40 mg PO QDAY 06/29/24 09/28/24 Hi story magnesium oxide 300 mg PO .wkly 06/29/24 09/28/24 History zinc glycinate 20 mg capsule 20 mg PO .wkly 06/29/24 09/28/24 H istory rivaroxaban 20 mg tablet (Xarelto) 20 mg PO QDAY #30 tabs 09/06/24 09/28/24 Rx Have you fallen in the past year?: No PFSH Medical History Hypertension Surgical History H/O basal cell carcinoma excision ( 2024) Family History Other CVA (cerebral vascular accident) Hypertension Social History Smoking Status: Former smoker Tobacco: How many years used: 2 HPI HPI HPI: NANCIE SÁNCHEZ, is a 69 M who presents to the office today for follow-up of his venous insufficiency and SVT and to discuss recent ultrasound results. Recall that he has slightly atypical appearance of bilateral lower leg venous stasis dermatitis; in appearance, consistent with stasis dermatitis, just an abnormal distribution with scattered focal areas of skin changes which is primarily medial ankles but also anterior and posterolateral. More recently, he has also had unprovoked RLE SVT despite excellent adherence to conservative care measures with measured compression stockings, leg elevation at times of rest, and increased exercise. He was initially diagnosed with thrombosed R calf varicose veins 08/15/24 and treated conservatively with ASA/NSAIDs/warm compresses/compression/karyna vation but he had progressive palpable cord into his thigh and worsened discomfort so with suspicion of propagating SVT initiated on Xarelto 20mg daily. He has since had improvement in his symptoms with resolved erythema, focal edema. He had updated duplex prior to his appointment demonstrating R GSV SVT, consistent with prior suspicion of propagated SVT. He also had venous reflux study 07/25/24 which demonstrated bilateral SFJ, GSV, and ASV incompetence. As above, he has very consistently been wearing his compression stockings. He has had some improvement in his stasis dermatitis with these efforts in addition to topical steroid as needed though symptoms do persist to some degree. Additionally, he has aching discomfort in his bilateral calves. He has seen improvement in SVT-related symptoms with Xarelto. He is tolerating Xarelto well without adverse bleeding. He does have a very high copay with this medication. ROS General General: No weight change, appetite, fatigue, colon cancer, breast cancer or weakness HEENT HEENT: No difficulty swallowing, eye injury, eye surgery, swollen glands or hoarseness Endo Endocrine: No thyroid disease, diabetes mellitus, thyroid cancer, Hair loss, heat intolerance or cold intolerance Skin Skin: No rash or changing moles Musc Musculoskeletal: Yes joint pain; No back problems, arthritis, rheumatoid arthritis or gout Cardio Cardiovascular: Yes high blood pressure; No murmur, pacemaker, heart disease, atrial fibrillation, heart attack, heart stent, palpitations, shortness of breath with exertion or chest pain Psych Psychiatric: No depression, anxiety or hearing voices Resp Respiratory: No shortness of breath, No sleep apnea, Yes cough, No COPD, No asthma, No emphysema and No wheezing Gastro Gastrointestinal: No abdominal pain, No nausea or vomiting, No diarrhea, No constipation, No blood in stool, No acid reflux, No hemorrhoids, No ulcers, No gallbladder problem and No black,tarry stools Zack Hematologic: Yes blood thinners, No blood disorders, No bleeding, No (more content not included)... Normal [facility] Venous Duplex US, Unilateral on 09-28-2024 Venous Duplex US, Unilateral [facility] Cardi[facility] Services [address] [place] [address] Venous Duplex US, Unilateral 09/28/24 1259 MR#: [id number] Acct: [id number] Name: NANCIE SÁNCHEZ Rep #: [id number] : 1955 69 From: Jose Alejandro Soto MD Attending Dr: SAMEER Burnett Status: REG CLI Ordering Dr: Lizbeth Guevara Date: 09/28/24 Location: CVS Sex: M C Admitted: Reason For Study Reason For Study: LE Pain RIGHT LEFT Rt GSV is DILATED and NONCOMPRESSIBLE from CFV is compressible, spontaneous, phasic, competent, approximately 0.96cm distal to SFJ and ending and demonstrates normal augmentation. approximately mid calf. CFV is compressible, spontaneous, phasic, competent and demonstrates normal augmentation. FV is compressible, spontaneous, phasic, competent and demonstrates normal augmentation. POP V is compressible, spontaneous, phasic, competent and demonstrates normal augmentation. T/P Trunk is compressible. PTV is compressible. RT PerV is compressible. Procedure This is a venous duplex using B-mode, color flow and spectral Doppler. Exam performed in department. Compare to study 08/12/2024. The exam was diagnostic. A preliminary report was called and/or faxed to Lizbeth Guevara [facility] PA. VL/Venous Duplex US, Unilateral Interpretation Summary Acute superficial vein thrombosis noted at saphenofemoral junction and great saphenous vein throughout. Deep veins of the right lower extremity are patent and compressible segmentally. There is no evidence of right lower extremity deep vein thrombosis. Ordering Physician: Lizbeth Guevara Referring Physician: Harvinder Mendoza Performed By: Lena, Jeromy, RVT 09/29/24 0750 Date Jose Alejandro Soto MD CC: SAMEER Burnett; Dr. 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 Recall that at his last OV, diagnosed acute SVT of varicosities off of his GSV along his medial proximal calf, knee, and distal thigh. Conservative management with ASA 325mg daily, thigh-high compression, and warm compresses were initiated. He has had improvement in the discomfort along the calf varicosities, but has had persistent pain along the varicosities in the distal thigh and some progression of the pain and swelling more proximally on his thigh. He does not have any generalized edema through his thigh or calf; tenderness to palpation only focally along the visible varicosities. Still with palpable cord along the medial thigh and calf. Prior erythema has significantly improved. No SOB, CP, palpitations. I have also seen him for areas of discoloration/dermatitis in his bilateral lower legs. He has seen significant improvement with application of topical steroid; he is only applying once daily every few days and is also applying moisturizer daily. ROS General General: No weight change, appetite, fatigue, colon cancer, breast cancer or weakness HEENT HEENT: No difficulty swallowing, eye injury, eye surgery, swollen glands or hoarseness Endo Endocrine: No thyroid disease, diabetes mellitus, thyroid cancer, Hair loss, heat intolerance or cold intolerance Skin Skin: No rash or changing moles Musc Musculoskeletal: Yes joint pain; No back problems, arthritis, rheumatoid arthritis or gout Cardio Cardiovascular: Yes high blood pressure; No murmur, pacemaker, heart disease, atrial fibrillation, heart attack, heart stent, palpitations, shortness of breath with exertion or chest pain Psych Psychiatric: No depression, anxiety or hearing voices Resp Respiratory: No shortness of breath, No sleep apnea, Yes cough, No COPD, No asthma, No emphysema and No wheezing Gastro Gastrointestinal: No abdominal pain, No nausea or vomiting, No diarrhea, No constipation, No blood in stool, Yes acid reflux, No hemorrhoids, No ulcers, No gallbladder problem and No black,tarry stools Zack Hematologic: Yes blood thinners, No blood disorders, No bleeding, No anemia and Yes blood clots Neuro Neurologic: No system reviewed and no additional complaints, except as documented, No as per HPI, No abnormal gait, No abnormal hearing, No abnormal movements, No abnormal speech, No behavioral changes, No burning sensations, No confusion, No convulsions, No disequilibrium, No dizziness, No localized weakness, No frequent falls, No headache(s), No lack of coordination, No loss of vision, No memory loss, No numbness, No other visual disturbances, Yes radicular pain, No restless legs, No sensory deficit, No syncope, No tingling, No tremor(s), No weakness and No other Exam Const General: cooperative, healthy appearing, comfortable and no acute distress Nutritional Appearance: average body habitus Orientation: alert, awake and oriented x3 HENMT Head: normocephalic and atraumatic Ears: hearing grossly normal bilaterally and external ears normal Nose: external nose normal Eyes General: appearance normal, both eyes and all related structures Neck Neck: normal visual inspection Carotids: no bruits Resp Effort Inspection: normal respiratory effort, able to speak in complete sentences, no audible wheezes, not labored and no retractions Auscultation: clear to auscultation bilaterally Cardio Rate: regular rate Rhythm: regular rhythm Skin (more content not included)... Normal [facility] Venous duplex ultrasound rep ortOrdered By: Jose Alejandro Soto on 08-15-2024 US Vein [facility] [address] [place] [address] Venous Duplex US, Unilateral 08/12/24 1050 MR#: [id number] Acct: [id number] Name: NANCIE SÁNCHEZ Rep #:[id number] : 1955 68 From: Jose Alejandro Cunha Attending Dr: SAMEER Burnett Stat us: REG CLI Ordering Dr: Lizbeth Guevara Date: Location: CVS Sex: M C Admitted: Reason For Study Reason For Study: Pain RIGHT LEFT GSV is normal. CFV is compressible, spontaneous, phasic, competent, CFV is compressible, spontaneous, phasic, competent and demonstrates normal augmentation. and demonstrates normal augmentation. FV is compressible, spontaneous, phasic, competent and demonstrates normal augmentation. POP V is compressible, spontaneous, phasic, competent and demonstrates normal augmentation. T/P Trunk is compressible. PTV is compressible. RT PerV is compressible. Thrombus filled varicose veins noted in the Rt prox calf to knee. Procedure This is a venous duplex using B-mode, color flow and spectral Doppler. Exam performed in department. A preliminary report was called and/or faxed to SAMEER Burnett. VL/Venous Duplex US, Unilateral Interpretation Summary Thrombus filled varicose veins noted in the right proximal calf to knee. Deep veins of the right lower extremity are patent and compressible segmentally.There is no evidence of right lower extremity deep vein thrombosis. The right great saphenous vein appears patent and compressible segmentally. 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 [place] [address] OFFICE VISIT Date of Service: 08/12/24 MR#: [id number] Acct: [id number] Name: NANCIE SÁNCHEZ Rep #: [id number] : 1955 Provider: SAMEER Burnett Age/Sex: 68/M Location: [facility] [place] Status: Signed Intake Vital Signs 08/12/24 10:02 Weight: 219 lb BP 137/82 H Blood Pressure Location Lt brachial Position Sitting Respiration 16 Pulse 72 Pulse Source Monitor Temp 97.3 F L Temp Source Temporal Pulse Oximetry (%) 98 Oxygen Delivery Method room air Intake Visit Reasons: Lump on knee Is patient in pain?: Yes Allergies penicillin G Allergy (Severe, Verified 08/12/24 10:05) Rash Medications ???Medication ???Instructions ???Recorded ???Confirmed ???Type aspirin 81 mg tablet,delayed 81 mg PO QDAY 06/14/24 08/12/24 Hi story release (Adult Low Dose Aspirin) lisinopril 20 mg tablet 20 mg PO QDAY 06/14/24 08/12/24 Hi story ascorbate calcium (vitamin C) 500 1 g PO QDAY 06/29/24 08/12/24 His tory mg capsule lisinopril 10 mg tablet 10 mg PO QDAY 06/29/24 08/12/24 Hi story lutein 40 mg capsule 40 mg PO QDAY 06/29/24 08/12/24 Hi story magnesium oxide 300 mg PO .wkly 06/29/24 08/12/24 History zinc glycinate 20 mg capsule 20 mg PO .wkly 06/29/24 08/12/24 H istory Have you fallen in the past year?: No PFSH Medical History Hypertension Surgical History H/O basal cell carcinoma excision ( 2024) Family History Other CVA (cerebral vascular accident) Hypertension Social History Smoking Status: Former smoker Tobacco: How many years used: 2 HPI HPI HPI: NANCIE SÁNCHEZ, is a 68 M who presents to the office today for evaluation of acute focal swelling, redness, and pain on his RLE. He reports he first noticed this painful lump just below his R knee about a week ago, it is hard to touch. Over the last week, this has progressed up onto his thigh and the pain/swelling/redness have not improved at all. I saw him most recently due to chronic skin discoloration and varicose veins of his bilateral lower legs. He did have a venous reflux study 07/25/24 which was negative for DVT/SVT but did demonstrate bilateral GSV/ASV incompetence bilaterally. At that appointment, advised initiation of conservative management measures. He has been wearing knee-high compression stockings consistently as directed. He does admit to being relatively sedentary over the last few months, but no significant change within the last few weeks. He has not had any recent injury to the RLE and no recent illness or surgery. ROS General General: No weight change, appetite, fatigue, colon cancer, breast cancer or weakness HEENT HEENT: No difficulty swallowing, eye injury, eye surgery, swollen glands or hoarseness Endo Endocrine: No thyroid disease, diabetes mellitus, thyroid cancer, Hair loss, heat intolerance or cold intolerance Skin Skin: Yes rash; No changing moles Musc Musculoskeletal: No back problems, arthritis, rheumatoid arthritis, gout or joint pain Cardio Cardiovascular: Yes high blood pressure; No murmur, pacemaker, heart disease, atrial fibrillation, heart attack, heart stent, palpitations, shortness of breath with exertion or chest pain Psych Psychiatric: No depression, anxiety or hearing voices Resp Respiratory: No shortness of breath, No sleep apnea, No cough, No COPD, No asthma, No emphysema and No wheezing Gastro Gastrointestinal: No abdominal pain, No nausea or vomiting, No diarrhea, No constipation, No blood in stool, No acid reflux, No hemorrhoids, No ulcers, No gallbladder problem and No black,tarry stools Zack Hematologic: Yes blood thinners, No blood disorders, No bleeding, No anemia and No blood clots Neuro Neurologic: No system reviewed and no additional complaints, except as documented, No as per HPI, No abnormal gait, No abnormal hearing, No abnormal movements, No abnormal speech, No behavioral changes, No burning sensations, No confusion, No convulsions, No disequilibrium, No dizziness, No localized weakness, No frequent falls, No headache(s), No lack of coordination, No loss of vision, No memory loss, Yes numbness, No other visual disturbances, Yes radicular pain, No restless legs, No sensory deficit, No syncope, Yes tingling, No tremor(s), No weakness and No other Exam Const General: cooperative, healthy appearing, comfortable and no acute distress Nutritional Appearance: average body habitus Orientation: alert, awake and oriented x3 HENMT Head: normocephalic and atraumatic Ears: hear (more content not included)... Normal [facility] Venous Duplex US, Unilateral on 08-12-2024 Venous Duplex US, Unilateral [facility] Cardi[facility] Services [address] [place] [address] Venous Duplex US, Unilateral 08/12/24 1050 MR#: [id number] Acct: [id number] Name: NANCIE SÁNCHEZ Rep #: [id number] : 1955 68 From: Jose Alejandro Soto MD Attending Dr: SAMEER Burnett Status: REG CLI Ordering Dr: Lizbeth Guevara Date: 08/12/24 Location: CVS Sex: M C Admitted: Reason For Study Reason For Study: Pain RIGHT LEFT GSV is normal. CFV is compressible, spontaneous, phasic, competent, CFV is compressible, spontaneous, phasic, competent and demonstrates normal augmentation. and demonstrates normal augmentation. FV is compressible, spontaneous, phasic, competent and demonstrates normal augmentation. POP V is compressible, spontaneous, phasic, competent and demonstrates normal augmentation. T/P Trunk is compressible. PTV is compressible. RT PerV is compressible. Thrombus filled varicose veins noted in the Rt prox calf to knee. Procedure This is a venous duplex using B-mode, color flow and spectral Doppler. Exam performed in department. A preliminary report was called and/or faxed to SAMEER Burnett. VL/Venous Duplex US, Unilateral Interpretation Summary Thrombus filled varicose veins noted in the right proximal calf to knee. Deep veins of the right lower extremity are patent and compressible segmentally. There is no evidence of right lower extremity deep vein thrombosis. The right great saphenous vein appears patent and compressible segmentally. Ordering Physician: Lizbeth Guevara Referring Physician: Lizbeth Guevara Performed By: Joy Braxton, RVT 08/15/24 1325 Date Jose Alejandro Soto MD CC: SAMEER Burnett; Dr. 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 [address] Venous Duplex US - Neeraj Extrem 07/25/24 0919 MR#: [id number] Acct: [id number] Name: NANCIE SÁNCHEZ Rep #: [id number] : 1955 68 From: Jose Alejandro Soto MD Attending Dr: SAMEER Burnett Status: REG CLI Ordering Dr: Lizbeth Guevara Date: 07/25/24 Location: CVS Sex: M C Admitted: Reason For Study Reason For Study: Pain RIGHT LEFT CFV is compressible, spontaneous, phasic, competent CFV is compressible, spontaneous, phasic, competent, and demonstrates normal augmentation. and demonstrates normal augmentation. FV is compressible, spontaneous, phasic, competent FV is compressible, spontaneous, phasic, competent and demonstrates normal augmentation. and demonstrates normal augmentation. POP V is compressible, spontaneous, phasic, competent POP V is compressible, spontaneous, phasic, competent and demonstrates normal augmentation. and demonstrates normal augmentation. T/P Trunk is compressible. T/P Trunk is compressible. PTV is compressible. PTV is compressible. RT PerV is compressible. LT PerV is compressible. SFJ is INCOMPETENT and measures 0.99 cm. SFJ is INCOMPETENT and measures 0.82 cm. GSV proximal thigh measures 0.97x0.99 cm. GSV proximal thigh measures 0.70x0.77 cm. GSV at knee measures 0.74x0.77 cm. GSV at knee measures 0.15x0.20 cm. GSV INCOMPETENT throughout for greater than 0.5 GSV INCOMPETENT throughout for greater than 0.5 seconds. seconds. ASV proximal calf is INCOMPETENT for greater than 0.5 GSV at knee to mid calf no flow detected. seconds and measures 0.34x0.43 cm. ASV at knee connects to feed GSV mid calf. SSV mid calf is competent and measures 0.27x0.32 cm. 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 medial malleolusis INCOMPETENT for greater than 0.5 ASV proximal thigh is INCOMPETENT for greater than seconds. 0.5 seconds and measures 0.32x0.38 cm. Procedure SSV mid calf is competent and measures 0.17x0.16 cm. This is a venous duplex using B-mode, color flow and spectral Doppler. Exam performed in department. The exam was diagnostic. Patient was scanned in reverse Trendelenburg position during reflux assessment. VL/Venous Duplex US - Neeraj Extrem Interpretation Summary Deep veins of the bilateral lower extremity are patent and compressible segmentally. There is no evidence of bilateral lower extremity deep vein thrombosis. The bilateral great saphenous veins appear patent and compressible segmentally. Positive for reflux in the right saphenofemoral junction, great saphenous vein throughout, accessory saphenous vein in calf, and proximal calf apparel merchandiser. Positive for reflux in the left saphenofemoral junction, great saphenous vein throughout, accessory saphenous vein proximal thigh, accessory saphenous vein at knee Ordering Physician: Lizbeth Guevara Referring Physician: Harvinder Mendoza DO Performed By: Jaylene Le RVT and Student 07/25/24 1603 Date Jose Alejandro Soto MD CC: SAMEER Burnett; Dr. 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 [address] Venous Duplex US - Neeraj Extrem 07/25/24918 MR#: [id number] Acct: [id number] Name: NANCIE SÁNCHEZ Rep #:[id number] : 1955 68 From: Jose Alejandro Cunha Attending Dr: SAMEER Burnett Stat us: REG CLI Ordering Dr: Lizbeth Guevara Date: Location: CVS Sex: M C Admitted: Reason For Study Reason For Study: Pain RIGHT LEFT CFV is compressible, spontaneous, phasic, competent CFV is compressible, spontaneous, phasic, competent, and demonstrates normal augmentation. and demonstrates normal augmentation. FV is compressible, spontaneous, phasic, competent FV is compressible, spontaneous, phasic, competent and demonstrates normal augmentation. and demonstrates normal augmentation. POP V is compressible, spontaneous, phasic, competent POP V is compressible, spontaneous, phasic, competent and demonstrates normal augmentation. and demonstrates normal augmentation. T/P Trunk is compressible. T/P Trunk is compressible. PTV is compressible. PTV is compressible. RT PerV is compressible. LT PerV is compressible. SFJ is INCOMPETENT and measures 0.99 cm. SFJ is INCOMPETENT and measures 0.82 cm. GSV proximal thigh measures 0.97x0.99 cm. GSV proximal thigh measures 0.70x0.77 cm. GSV at knee measures 0.74x0.77 cm. GSV at knee measures 0.15x0.20 cm. GSV INCOMPETENT throughout for greater than 0.5 GSV INCOMPETENT throughout for greater than 0.5 seconds. seconds. ASV proximal calf is INCOMPETENT for greater than 0.5 GSV at knee tomid calf no flow detected. seconds and measures 0.34x0.43 cm. ASV at knee connects to feed GSV mid calf. SSV mid calf is competent and measures 0.27x0.32 cm. ASV at knee isINCOMPETENT for greater than 0.5 GSV apparel merchandiser at proximal calf measuring 32cm from seconds and measures 0.56x0.65 cm. medial malleolusis INCOMPETENT for greater than 0.5 ASV proximal thigh is INCOMPETENT for greater than seconds. 0.5 seconds and measures 0.32x0.38 cm. Procedure SSV mid calf is competent and measures 0.17x0.16 cm. This is a venous duplex using B-mode, color flow and spectral Doppler. Exam performed in department. The exam was diagnostic. Patient was scanned in reverse Trendelenburg position during reflux assessment. VL/Venous Duplex US - Neeraj Extrem Interpretation Summary Deep veins of the bilateral lower extremity are patent and compressible segmentally. There is no evidence of bilateral lower extremity deep vein thrombosis. The bilateral great saphenous veins appearpatent and compressible segmentally. Positive for reflux in the right saphenofemoral junction, great saphenous vein throughout, accessory saphenous vein in calf, and proximal calf apparel merchandiser. Positive for reflux in the left saphenofemoral junction, great saphenous vein throughout, accessory saphenous vein proximal thigh, accessory saphenous vein at knee Ordering Physician: Lizbeth Guevara Referring Physician: Harvinder Mendoza DO Performed By: Jaylene Le RVT and Student 07/25/24 6211 Date _ Jose Alejandro Soto MD CC: SAMEER Burnett; Dr. 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 [place] [address] OFFICE VISIT Date of Service: 06/29/24 MR#: [id number] Acct: [id number] Name: NANCIE SÁNCHEZ Rep #: [id number] : 1955 Provider: SAMEER Burnett Age/Sex: 68/M Location: [facility].BVS Status: Signed Intake Vital Signs 06/29/24 13:16 Weight: 214 lb BP 145/88 H Blood Pressure Location Lt brachial Position Sitting Respiration 16 Pulse 76 Pulse Source Monitor Temp 97.4 F L Temp Source Temporal Pulse Oximetry (%) 99 Oxygen Delivery Method room air Intake Visit Reasons: VARICOSE VEINS Chief Complaint: establish care Is patient in pain?: Yes Allergies penicillin G Allergy (Severe, Verified 06/29/24 13:18) Rash Medications ???Medication ???Instructions ???Recorded ???Confirmed ???Type aspirin 81 mg tablet,delayed 81 mg PO QDAY 06/14/24 06/14/24 Hi story release (Adult Low Dose Aspirin) lisinopril 20 mg tablet 20 mg PO QDAY 06/14/24 06/14/24 Hi story ascorbate calcium (vitamin C) 500 1 g PO QDAY 06/29/24 06/29/24 His tory mg capsule lisinopril 10 mg tablet 10 mg PO QDAY 06/29/24 06/29/24 Hi story lutein 40 mg capsule 40 mg PO QDAY 06/29/24 06/29/24 Hi story magnesium oxide 300 mg PO .wkly 06/29/24 06/29/24 History zinc glycinate 20 mg capsule 20 mg PO .wkly 06/29/24 06/29/24 H istory Have you fallen in the past year?: No PFSH Medical History (Updated 06/29/24 @ 22:24 by SAMEER Burnett) Hypertension Surgical History (Updated 06/29/24 @ 13:14 by Krissy Ferreira) H/O basal cell carcinoma excision ( 2024) Family History (Updated 06/29/24 @ 13:15 by Krissy Ferreira) Other CVA (cerebral vascular accident) Hypertension Social History (Updated 06/29/24 @ 13:15 by Krissy Ferreira) Smoking Status: Former smoker Tobacco: How many years used: 2 HPI HPI HPI: NANCIE SÁNCHEZ, is a 68 M who presents to the office today for evaluation of BLE varicose veins and possible associated skin changes as referred from dermatology Dr. Johnson. He has had bilateral lower extremity varicose veins for many years which to this point had been asymptomatic. Over the last few months, he has noticed progressively worsening aching discomfort in his calves as well as mild edema. He notes tenderness to palpation along the more prominent varicosities bilaterally. More recently he has also developed these scattered areas of red discoloration on his bilateral shins/calves; there are no open wounds at this time. He used to wear what sounds like support stockings daily when he was working. He retired at the end of last year and has not been wearing any compressions since then, and admittedly has been generally less active as well. He did recently obtain some stronger compressions stockings and is planning to start wearing them today. He does not have any history of prior venous intervention, ulcerations, DVT/SVT/PE. He has not had any recent imaging. ROS General General: No weight change, appetite, fatigue, colon cancer, breast cancer or weakness HEENT HEENT: No difficulty swallowing, eye injury, eye surgery, swollen glands or hoarseness Endo Endocrine: No thyroid disease, diabetes mellitus, thyroid cancer, Hair loss, heat intolerance or cold intolerance Skin Skin: Yes rash; No changing moles Musc Musculoskeletal: No back problems, arthritis, rheumatoid arthritis, gout or joint pain Cardio Cardiovascular: Yes high blood pressure; No murmur, pacemaker, heart disease, atrial fibrillation, heart attack, heart stent, palpitations, shortness of breat with exertion or chest pain Psych Psychiatric: No depression, anxiety or hearing voices Resp Respiratory: No shortness of breath, No sleep apnea, No cough, No COPD, No asthma, No emphysema and No wheezing Gastro Gastrointestinal: No abdominal pain, No nausea or vomiting, No diarrhea, No constipation, No blood in stool, No acid reflux, No hemorrhoids, No ulcers, No gallbladder problem and No black,tarry stools Zack Hematologic: No blood thinners, No blood disorders, No bleeding, No anemia and No blood clots Neuro Neurologic: No system reviewed and no additional complaints, except as documented, No as per HPI, No abnormal gait, No abnormal hearing, No abnormal movements, No abnormal speech, No behavioral changes, No burning sensations, No confusion, No convulsions, No disequilibrium, No dizziness, No localized weakness, No frequent falls, No headache(s), No lack of coordination, No loss of vision, No memory loss, Yes numbness, No other visual disturbances, Yes radicular pain, No restless legs, No sensory deficit, No syncope, Yes tingling, No tremor(s), No weakness and No other Exam Const General: cooperative, healthy appearing, comfortable (more content not included)... 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 Conclusions * No evidence of an abdominal aortic aneurysm. No evidence of right or left common iliac artery aneurysm. Risk Factors Patient has a history of hypertension, hyperlipidemia and tobacco use-previous. . Report Signatures Finalized by Parker Chan MD on 06/09/2024 10:18 AM Measurements Name Value AP Proximal Ao AP 2.3 cm Mid Ao AP 1.8 cm Distal Ao AP 1.6 cm Measurements Name Value AP Right Prox HEENA AP Diam 1.2 cm Measurements Name Value AP Left Prox HEENA AP Diam 1.1 cm Name Value Trans Proximal Ao Trans 2.3 cm Mid Ao Trans 1.8 cm Distal Ao Trans 1.6 cm Name Value Trans Right Prox HEENA Trans Diam 1.2 cm Name Value Trans Left Prox HEENA Trans Diam 1.1 cm Dictated by: PARKER CHAN on ThuJun 09, 2024 10:19:06 AM EST Transcribed by: PARKER CHAN on ThuJun 09, 2024 10:19:06 AM EST Finalized by: PARKER CHAN on ThuJun 09, 2024 10:19:06 AM EST Normal [facility] Basic metabolic 2000 panelon 04-11-2024 Anion gap [Moles/Vol] 11 mmol/L Normal 10-20 [facility] Comment on above: Performed By: #### 2857-1 #### AARVIND AZAR ([id number]) [facility] ([facility]) [address] [place], [place] [address] Calcium [Mass/Vol] 9.8 mg/dL Normal 8.6-10.3 [facility] Comment on above: Performed By: #### 2857-1 #### ARAVIND AZAR ([id number]) [facility] ([facility]) [address] [place] [address]387 Chloride [Moles/Vol] 103 mmol/L Normal 98-107 [facility] Comment on above: Performed By: #### 2857-1 #### ARAVIND AZAR ([id number]) [facility] ([facility]) [address] [place] [address] 60791 CO2 [Moles/Vol] 30 mmol/L Normal 21-32 [facility] Comment on above: Performed By: #### 2857-1 #### ARAVIND AZAR ([id number]) [facility] ([facility]) [address] [place] [address] 36061 Creatinine [Mass/Vol] 0.90 mg/dL Normal 0.50-1.30 [facility] Comment on above: Performed By: #### 2857-1 #### ARAVIND AZAR ([id number]) [facility] ([facility]) [address] [place] [address] 88381 GFR/1.73 sq M.predicted MDRD (S/P/Bld) [Vol rate/Area] mL/min/{1.73_m2} Normal >60 [facility] Comment on above: Result Comment: Calculations of estimate d GFR are performed using the 2020 CKD-EPI Study Refit equation without the race variable for the IDMS-Traceable creatinine methods. https://jasn.asnjournals.org/content/early//ASN.8044788767 Performed By: #### 2 857-1 #### ARAVIND AZAR ([id number]) [facility] ([facility]) [address] [place] [address] 60379 Glucose [Mass/Vol] 93 mg/dL Normal 74-99 [facility] Comment on above: Performed By: #### 2857-1 #### ARAVIND AZAR (00500) [facility] ([facility]) [address] [place] [address] 50253 Potassium [Moles/Vol] 4.7 mmol/L Normal 3.5-5.3 [facility] Comment on above: Performed By: #### 2857-1 #### ARAVIND AZAR ([id number]) [facility] ([facility]) [address] [place] [address] 22593 Sodium [Moles/Vol] 139 mmol/L Normal 136-145 [facility] Comment on above: Performed By: #### 2857-1 #### ARAVIND AZAR (61453) [facility] ([facility]) [address] [place] [address] Urea nitrogen [Mass/Vol] 13 mg/dL Normal 6-23 [facility] Comment on above: Performed By: #### 2857-1 #### ARAVIND AZAR ([id number]) [facility] ([facility]) [address] [place] [address] Creatine kinaseon 04-11-2024 CK [Catalytic activity/Vol] 482 U/L High 0-325 [facility] Comment on above: Performed By: #### 2857-1 #### ARAVIND AZAR (47891) [facility] ([facility]) [address] [place] [address] 51691 Lipid 1996 panelon Cholesterol [Mass/Vol] 235 mg/dL High 0-199 [facility] Comment on above: Result Comment: Age Desirable Borderline High High 0-19 Y 0 - 169 170 - 199 >/= 200 20-24 Y 0 - 189 190 - 224 >/= 225 >24 Y 0 - 199 200 - 239 >/= 240 All ranges are based on fasting samples. Specific therapeutic targets will vary based on patient-specific cardiac risk. Pediatric guidelines reference:Pediatrics 2011, 128(S5).Adult guidelines reference: NCEP ATPIII Guidelines,HOLLY 2001, 258:2486-97 Venipuncture immediately after or during the administration of Metamizole may lead to falsely low results. Testing should be performed immediately prior to Metamizole dosing. Performed By: #### 2 857-1 #### ARAVIND AZAR ([id number]) [facility] ([facility]) [facility] [place] [address] Cholesterol in HDL [Mass/Vol] 58.0 mg/dL Normal [facility] Comment on above: Result Comment: Age Very Low Low Normal High 0-19 Y < 35 < 40 40-45 ---- 20-24 Y ---- < 40 >45 ---- >24 Y ---- < 40 40-60 >60 Performed By: #### 2 857-1 #### ARAVIND AZAR (83075) [facility] ([facility]) [address] [place] [address] 25540 Cholesterol in LDL [Mass/Vol] 162 mg/dL High <=99 [facility] Comment on above: Result Comment: Near Borderline AGE Desirable Optimal High High Very High 0-19 Y 0 - 109 --- 110-129 >/= 130 ---- 20-24 Y 0 - 119 --- 120-159 >/= 160 ---- >24 Y 0 - 99 100-129 130-159 160-189 >/=190 Performed By: #### 2 857-1 #### ARAVIND AZAR (91455) [facility] ([facility]) [address] [place] [address]109 Cholesterol in VLDL [Mass/Vol] 15 mg/dL Normal 0-40 [facility] Comment on above: Performed By: #### 2857-1 #### ARAVIND AZAR (82155) [facility] ([facility]) [address] [place] [address] 67643 CHOLESTEROL/HDL RATIO 4.1 Normal [facility] Comment on above: Result Comment: Ref Values Desirable < 3.4 High Risk > 5.0 Performed By: #### 2 857-1 #### ARAVIND AZAR ([id number]) [facility] ([facility]) [address] [place] [address] 87768 NON HDL CHOLESTEROL 177 mg/dL High 0-149 [facility] Comment on above: Result Comment: Age Desirable Borderline High High Very High 0-19 Y 0 - 119 120 - 144 >/= 145 >/= 160 20-24 Y 0 - 149 150 - 189 >/= 190 ---- >24 Y 30 mg/dL above LDL Cholesterol goal Performed By: #### 2 857-1 #### ARAVIND AZAR (75501) [facility] ([facility]) [address] [place] [address] 62124 Triglyceride [Mass/Vol] 75 mg/dL Normal 0-149 [facility] Comment on above: Result Comment: Age Desirable Borderline High Very High SEX:B mg/dL mg/dL mg/dL mg/dL <=14D 86-277 ---- ---- ---- 15D-365D 55-277 ---- ---- ---- 1Y-9Y 0-74 75-99 >=100 ---- 10Y-19Y 0-89 90-129 >=130 ---- 20Y-24Y 0-114 115-149 >=150 ---- >= 25Y 0-149 150-199 200-499 >=500 Venipuncture immediately after or during the administration of Metamizole may lead to falsely low results. Testing should be performed immediately prior to Metamizole dosing. Performed By: #### 2 857-1 #### ARAVIND AZAR (66563) [facility] ([facility]) [address] [place] [address] 77414 Cobalaminson 11-30-2023 Cobalamin (Vitamin B12) [Mass/Vol] 263 pg/mL Normal 211-911 [facility] Comment on above: Performed By: #### 2857-1 #### ARAVIND AZAR (27053) [facility] ([facility]) [address] [place] [address] 39319 Phosphateon 11-30-2023 Phosphate [Mass/Vol] 2.9 mg/dL Normal 2.5-4.9 [facility] Comment on above: Result Comment: The performance characte ristics of phosphorus testing in heparinized plasma have been validated by the individual laboratory site where testing is performed. Testing on heparinized plasma is not approved by the FDA; however, such approval is not necessary. Performed By: #### 2 857-1 #### ARAVIND AZAR ([id number]) [facility] ([facility]) [address] [place] [address] 24520 Creatine kinaseon 11-18-2023 CK [Catalytic activity/Vol] 651 U/L High 0-325 [facility] Comment on above: Performed By: #### 2857-1 #### ARAVIND AZAR (25205) [facility] ([facility]) [address] [place] [address] 30707 Creatine kinaseon 10-19-2023 CK [Catalytic activity/Vol] 738 U/L High 0-325 [facility] Comment on above: Performed By: #### 2857-1 #### ARAVIND AZAR (49472) [facility] ([facility]) [address] [place] [address] XR CERVICAL SPINE 2-3 VIEWSo n 10-19-2023 XR CERVICAL SPINE 2-3 VIEWS Interpreted By: Yenny Perez, STUDY: XR CERVICAL SPINE 2-3 VIEWS; 10/19/2023 8:48 am 3 views. INDICATION: Signs/Symptoms:neck pain and bilateral shoulder pain. COMPARISON: None. ACCESSION NUMBER(S): [id number] ORDERING CLINICIAN: SANA DEXTER FINDINGS: There is no fracture or prevertebral soft tissue swelling. There is no subluxation. There is mild anterior osteophytic spurring at C3-4. There is marked anterior and moderate posterior osteophytic spurring at C4-5. There is marked anterior and marked posterior osteophytic spurring at C5-6 and C6-7. The disc spaces are preserved. 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 IMPRESSION: Bony changes of DISH. MACRO: None Signed by: Yenny Perez 10/20/2023 8:39 AM Dictation workstation: [id number] [facility] XR SHOULDER LEFT 2+ VIEWSon 10-19-2023 XR SHOULDER LEFT 2+ VIEWS Interpreted By: Yenny Perez, STUDY: XR SHOULDER LEFT 2+ VIEWS; ; 10/19/2023 8:48 am INDICATION: Signs/Symptoms:pain. COMPARISON: None. ACCESSION NUMBER(S): [id number] ORDERING CLINICIAN: SANA DEXTER FINDINGS: Five views left shoulder: There is no fracture or dislocation. There is a degenerative change of the left acromioclavicular joint with mild spurring superiorly. IMPRESSION: Mild left acromioclavicular joint osteoarthritis. MACRO: None Signed by: Yenny Perez 10/20/2023 8:40 AM Dictation workstation: [id number] [facility] XR SHOULDER RIGHT 2+ VIEWSon 10-19-2023 XR SHOULDER RIGHT 2+ VIEWS Interpreted By: Yenny Perez, STUDY: XR SHOULDER RIGHT 2+ VIEWS; ; 10/19/2023 8:47 am INDICATION: Signs/Symptoms:pain 6 months. COMPARISON: None. ACCESSION NUMBER(S): [id number] ORDERING CLINICIAN: SANA DEXTER FINDINGS: Five views right shoulder: There is no fracture or dislocation. There is degenerative change of the right acromioclavicular joint with mild spurring superiorly and inferiorly. IMPRESSION: Mild right acromioclavicular joint osteoarthritis. MACRO: None Signed by: Yenny Perez 10/20/2023 8:40 AM Dictation workstation: [id number] Normal [facility] B. burgdorferi DNA ANDRES+probe Ql (Unsp spec)on 09-14-2023 Specimen source Nom (Unsp spec) Blood Normal [facility] Comment on above: Performed By: #### 4991-6 #### [facility] ([facility]) ([id number]) [address] [place] [address] Borrelia burgdorferi DNAon 0 09-14-2023 B. burgdorferi DNA ANDRES+probe Ql (Unsp spec) Not detected [facility] Comment on above: Result Comment: NOT DETECTED - A negativ e result does not rule out the presence of PCR inhibitors in the patient specimen or assay specific nucleic acid in concentrations below the level of detection by the assay. Blood and CSF specimens have poor clinical sensitivity for detection of Borrelia burgdorferi by PCR. INTERPRETIVE INFORMATION: Borrelia Species DNA Detection by PCR This test was developed and its performance characteristics determined by [facility]. It has not been cleared or approved by the [place] Food and Drug Administration. This test was performed in a CLIA certified laboratory and is intended for clinical purposes. Performed By: [facility] [address] [place] [address] Stone Finisher: Danny Koo MD, PhD CLIA Number: [id number] Performed By: #### 4 991-6 #### [facility] ([facility]) ([id number]) [address] [place] [address] C reactive proteinon 024 CRP [Mass/Vol] 0.11 mg/dL Normal <1.00 [facility] Comment on above: Performed By: #### 1988-5 #### ARAVIND AZAR ([id number]) [facility] ([facility]) [address] [place] [address] CBC W Auto Differential pane l (Bld)on 09-14-2023 Basophils (Bld) [#/Vol] 0.04 x10*3/uL Normal 0.00-0.10 [facility] Comment on above: Performed By: #### 57950-6 #### ARAVIND AZAR ([id number]) [facility] ([facility]) [address] [place] [address] 31375 Basophils/100 WBC (Bld) 0.9 % Normal 0.0-2.0 [facility] Comment on above: Performed By: #### 83381-2 #### ARAVIND AZAR (36036) [facility] ([facility]) [address] [place] [address] 35167 Eosinophils (Bld) [#/Vol] 0.31 x10*3/uL Normal 0.00-0.70 [facility] Comment on above: Performed By: #### 69315-4 #### ARAVIND AZAR (75003) [facility] ([facility]) [address] [place] [address] 35705 Eosinophils/100 WBC (Bld) 6.8 % Normal 0.0-6.0 [facility] [facility] Comment on above: Performed By: #### 83326-7 #### ARAVIND AZAR ([id number]) [facility] ([facility]) [address] [place] [address] 50598 Erythrocyte distribution width (RBC) [Ratio] 12.1 % Normal 11.5-14.5 [facility] Comment on above: Performed By: #### 17087-8 #### ARAVIND AZAR ([id number]) [facility] ([facility]) [address] [place] [address] 85264 Hematocrit (Bld) [Volume fraction] 45.9 % Normal 41.0-52.0 [facility] Comment on above: Performed By: #### 85530-1 #### ARAVIND AZAR ([id number]) [facility] ([facility]) [address] [place] [address] 06251 Hemoglobin (Bld) [Mass/Vol] 15.0 g/dL Normal 13.5-17.5 [facility] Comment on above: Performed By: #### 39900-2 #### ARAVIND AZAR ([id number]) [facility] ([facility]) [address] [place] [address] 30328 Immature granulocytes (Bld) [#/Vol] 0.01 x10*3/uL Normal 0.00-0.70 [facility] Comment on above: Performed By: #### 28533-6 #### ARAVIND AZAR ([id number]) [facility] ([facility]) [address] [place] [address] 99831 Immature granulocytes/100 WBC (Bld) 0.2 % Normal 0.0-0.9 [facility] Comment on above: Result Comment: Immature Granulocyte Cou nt (IG) includes promyelocytes, myelocytes and metamyelocytes but does not include bands. Percent differential counts (%) should be interpreted in the context of the absolute cell counts (cells/UL). Performed By: #### 5 7021-8 #### ARAVIND AZAR ([id number]) [facility] ([facility]) [address] [place] [address] 30076 Lymphocytes (Bld) [#/Vol] 1.32 x10*3/uL Normal 1.20-4.80 [facility] Comment on above: Performed By: #### 75720-7 #### ARAVIND AZAR ([id number]) [facility] ([facility]) [address] [place] [address] 10935 Lymphocytes/100 WBC (Bld) 29.1 % Normal 13.0-44.0 [facility] Comment on above: Performed By: #### 54118-6 #### ARAVIND AZAR ([id number]) [facility] ([facility]) [address] [place] [address] 60955 MCH (RBC) [Entitic mass] 31.5 pg Normal 26.0-34.0 [facility] Comment on above: Performed By: #### 17747-8 #### ARAVIND AZAR ([id number]) [facility] ([facility]) [address] [place] [address] 33404 MCHC (RBC) [Mass/Vol] 32.7 g/dL Normal 32.0-36.0 [facility] Comment on above: Performed By: #### 43043-9 #### ARAVIND AZAR ([id number]) [facility] ([facility]) [address] [place] [address] 04616 MCV (RBC) [Entitic vol] 96 fL Normal 80-100 [facility] Comment on above: Performed By: #### 32486-9 #### ARAVIND AZAR ([id number]) [facility] ([facility]) [address] [place] [address] 43846 Monocytes (Bld) [#/Vol] 0.49 x10*3/uL Normal 0.10-1.00 [facility] Comment on above: Performed By: #### 72630-6 #### ARAVIND AZAR ([id number]) [facility] ([facility]) [address] [place] [address] 22042 Monocytes/100 WBC (Bld) 10.8 % Normal 2.0-10.0 [facility] Comment on above: Performed By: #### 16658-5 #### ARAVIND AZAR ([id number]) [facility] ([facility]) [address] [place] [address] 03681 Neutrophils (Bld) [#/Vol] 2.36 x10*3/uL Normal 1.20-7.70 [facility] Comment on above: Result Comment: Percent differential cou nts (%) should be interpreted in the context of the absolute cell counts (cells/uL). Performed By: #### 5 7021-8 #### ARAVIND AZAR ([id number]) [facility] ([facility]) [address] [place] [address] 39022 Neutrophils/100 WBC (Bld) 52.2 % Normal 40.0-80.0 [facility] Comment on above: Performed By: #### 71916-2 #### ARAVIND AZAR ([id number]) [facility] ([facility]) [address] [place] [address] 69389 Nucleated RBC/100 WBC (Bld) [Ratio] 0.0 /100 WBCs Normal 0.0-0.0 [facility] Comment on above: Performed By: #### 72039-0 #### ARAVIND AZAR ([id number]) [facility] ([facility]) [address] [place] [address] 33428 Platelets (Bld) [#/Vol] 279 x10*3/uL Normal 150-450 [facility] Comment on above: Performed By: #### 17003-9 #### ARAVIND AZAR ([id number]) [facility] ([facility]) [address] [place] [address] 47648 RBC (Bld) [#/Vol] 4.76 x10*6/uL Normal 4.50-5.90 [facility] Comment on above: Performed By: #### 18321-3 #### ARAVIND AZAR ([id number]) [facility] ([facility]) [address] [place] [address] 09257 WBC (Bld) [#/Vol] 4.5 x10*3/uL Normal 4.4-11.3 [facility] Comment on above: Performed By: #### 16116-2 #### ARAVIND AZAR ([id number]) [facility] ([facility]) [address] [place] [address] 54986 Creatine kinaseon 09-14-2023 CK [Catalytic activity/Vol] 564 U/L High 0-325 [facility] Comment on above: Performed By: #### 2157-6 #### ARAVIND AZAR ([id number]) [facility] ([facility]) [address] [place] [address] 26535 ESR Westergren method (Bld) [Velocity]on 09-14-2023 ESR (Bld) [Velocity] 1 mm/h Normal 0-20 [facility] Comment on above: Performed By: #### 4537-7 #### ARAVIND AZAR ([id number]) [facility] ([facility]) [address] [place] [address] 30005 Nuclear Abon 09-14-2023 Nuclear Ab Hep2 substrate Ql (S) Negative Normal Negative [facility] Comment on above: Result Comment: The Antinuclear Antibody (JOSE) test was performed using indirect immunofluorescence assay with HEp-2 cells slide. Performed By: #### 5 9069-5 #### KEVIN Gao ([id number]) [facility] ([facility]) [address] [place] [address] Rheumatoid factoron 09-14-19 24 Rheumatoid factor Nephelometry Qn (S) <10 Normal 0-15 [facility] Comment on above: Performed By: #### 22749-5 #### KEVIN Gao ([id number]) [facility] ([facility]) [address] [place] [address] Basic metabolic 2000 panelon 08-14-2023 Anion gap [Moles/Vol] 15 mmol/L Normal 10-20 [facility] Comment on above: Performed By: #### 75093-5 #### ARAVIND AZAR ([id number]) [facility] ([facility]) [address] [place] [address] 44189 Calcium [Mass/Vol] 9.6 mg/dL Normal 8.6-10.3 [facility] Comment on above: Performed By: #### 93605-7 #### ARAVIND AZAR ([id number]) [facility] ([facility]) [address] [place] [address] Chloride [Moles/Vol] 101 mmol/L Normal 98-107 [facility] Comment on above: Performed By: #### 43463-4 #### ARAVIND AZAR ([id number]) [facility] ([facility]) [address] [place] [address] CO2 [Moles/Vol] 26 mmol/L Normal 21-32 [facility] Comment on above: Performed By: #### 45396-7 #### ARAVIND AZAR ([id number]) [facility] ([facility]) [facility] [place] [address] Creatinine [Mass/Vol] 0.95 mg/dL Normal 0.50-1.30 [facility] Comment on above: Performed By: #### 77119-7 #### ARAVIND AZAR ([id number]) [facility] ([facility]) [facility] [place] [address] Glomerular filtration rate/1.73 sq M.predicted 87 mL/min/1.73m*2 Normal >60 [facility] Comment on above: Result Comment: Calculations of estimate d GFR are performed using the 2020 CKD-EPI Study Refit equation without the race variable for the IDMS-Traceable creatinine methods. https://jasn.asnjournals.org/content/early//ASN.1541123241 Performed By: #### 2 4321-2 #### ARAVIND AZAR ([id number]) [facility] ([facility]) [address] [place] [address] 52966 Glucose [Mass/Vol] 73 mg/dL Low 74-99 [facility] Comment on above: Performed By: #### 39135-0 #### ARAVIND AZAR ([id number]) [facility] ([facility]) [address] [place] [address] 55971 Potassium [Moles/Vol] 4.3 mmol/L Normal 3.5-5.3 [facility] Comment on above: Performed By: #### 22075-3 #### ARAVIND AZAR ([id number]) [facility] ([facility]) [facility] [place] [address] Sodium [Moles/Vol] 138 mmol/L Normal 136-145 [facility] Comment on above: Performed By: #### 96141-2 #### ARAVIND AZAR ([id number]) [facility] ([facility]) [facility] [place] [address] Urea nitrogen [Mass/Vol] 18 mg/dL Normal 6-23 [facility] Comment on above: Performed By: #### 24550-2 #### ARAVIND AZAR ([id number]) [facility] ([facility]) [address] [place] [address] 04715 HbA1c (Bld) [Mass fraction]o n 08-14-2023 Average glucose Estimated from glycated hemoglobin (Bld) [Mass/Vol] 108 mg/dL Normal Not Established [facility] Comment on above: Order Comment: Diagnosis of Diabetes-Stevenson lts Non-Diabetic: < or = 5.6% Increased risk for developing diabetes: 5.7-6.4% Diagnostic of diabetes: > or = 6.5% Monitoring of Diabetes Age (y)....................... Therapeutic Goal (%) Adults: >18.........................<7.0 Pediatrics: 13-18...................<7.5 Pediatrics: 7-12....................<8.0 Pediatrics: 0-6..................... 7.5-8.5 [place] [employer]. Diabetes Care 33(S1), May 2009 Performed By: ##Dax 4 548-4 #### ARAVIND AZAR ([id number]) [facility] ([facility]) [address] [place] [address] Hemoglobin A1c/Hemoglobin.to frederick 08-14-2023 HbA1c (Bld) [Mass fraction] 5.4 % Normal see below [facility] Comment on above: Order Comment: Diagnosis of Diabetes-Stevenson lts Non-Diabetic: < or = 5.6% Increased risk for developing diabetes: 5.7-6.4% Diagnostic of diabetes: > or = 6.5% Monitoring of Diabetes Age (y)....................... Therapeutic Goal (%) Adults: >18.........................<7.0 Pediatrics: 13-18...................<7.5 Pediatrics: 7-12....................<8.0 Pediatrics: 0-6..................... 7.5-8.5 [place] [employer]. Diabetes Care 33(S1), May 2009 Performed By: #### 4 548-4 #### ARAVIND AZAR ([id number]) [facility] ([facility]) [address] [place] [address] 15284 Prostate specific Agon 08-13 Prostate specific Ag [Mass/Vol] 3.29 ng/mL Normal <=4.00 [facility] Comment on above: Order Comment: The FDA requires that the method used for PSA assay be reported to the physician. Values obtained with different assay methods must not be used interchangeably. This test was performed at [facility] using the ObserveIT PSA assay is a two-site immunoenzymatic sandwich assay. The assay is approved for measurement of prostate-specific antigen (PSA)in serum and may be used in conjunction with a digital rectal examination in men 50 years and older as an aid in detection of prostate cancer. 9-Rkewx-esxfvmhko inhibitors (e.g. Proscar, Finasteride, Avodart, Dutasteride and Charlee) for the treatment of BPH have been shown to lower PSA levels by an average of 50% after 6 months of treatment. Performed By: #### 2 857-1 #### ARAVIND AZAR ([id number]) [facility] ([facility]) [address] [place] [address] 23591 BASIC METABOLIC PANELon 07-0 Anion gap [Moles/Vol] 10 mmol/L Normal 10 - 20 [facility] Comment on above: Performed By: #### BMP #### [address] [address] Calcium [Mass/Vol] 10.0 mg/dL Normal 8.6 - 10.3 [facility] Comment on above: Performed By: #### BMP #### [address] [address] Chloride [Moles/Vol] 102 mmol/L Normal 98 - 107 [facility] Comment on above: Performed By: #### BMP #### [address] [address] Creatinine [Mass/Vol] 0.89 mg/dL Normal 0.50 - 1.30 [facility] Comment on above: Performed By: #### BMP #### [address] [address] eGFR MALE >90 Normal >90 [facility] Comment on above: Result Comment: CALCULATIONS OF ESTIMATE D GFR ARE PERFORMED USING THE 2020 CKD-EPI STUDY REFIT EQUATION WITHOUT THE RACE VARIABLE FOR THE IDMS-TRACEABLE CREATININE METHODS. https://jasn.asnjournals.org/content//ASN.5103395925 Performed By: #### B MP #### [address] [address] Glucose [Mass/Vol] 98 mg/dL Normal 74 - 99 [facility] Comment on above: Performed By: #### BMP #### [address] [address] HCO3 (Bld) [Moles/Vol] 29 mmol/L Normal 21 - 32 [facility] Comment on above: Performed By: #### BMP #### [address] [address] Potassium [Moles/Vol] 4.4 mmol/L Normal 3.5 - 5.3 [facility] Comment on above: Performed By: #### BMP #### [address] [address] Sodium [Moles/Vol] 137 mmol/L Normal 136 - 145 [facility] Comment on above: Performed By: #### BMP #### [address] [address] Urea nitrogen [Mass/Vol] 19 mg/dL Normal 6 - 23 [facility] Comment on above: Performed By: #### BMP #### [address] [address] HEMOGLOBIN A1Con 11-17-2022 Glucose [Mass/Vol] 108 mg/dL Normal [facility] Comment on above: Performed By: #### HBA1E #### [address] [address] HbA1c (Bld) [Mass fraction] 5.4 % Normal [facility] Comment on above: Result Comment: Diagnosis of Diabetes-Ad ults Non-Diabetic: < or = 5.6% Increased risk for developing diabetes: 5.7-6.4% Diagnostic of diabetes: > or = 6.5% . Monitoring of Diabetes Age (y) Therapeutic Goal (%) Adults: >18 <7.0 Pediatrics: 13-18 <7.5 7-12 <8.0 0- 6 7.5-8.5 [place] [employer]. Diabetes Care 33(S1), May 2009. Performed By: #### H BA1E #### [facility] [address] [place] [address] Hemoglobin A1Con 11-17-2022 Glucose [Mass/Vol] 108 mg/dL ZS-Zukvgfb-Z [facility] Work Phone: [phone] HbA1c (Bld) [Mass fraction] 5.4 % SC-Vyfpmwt-P [facility] Work Phone: [phone] Comment on above: SOURCE: Diagnosis of Diabetes-Adults Non -Diabetic: < or = 5.6% Increased risk for developing diabetes: 5.7-6.4% Diagnostic of diabetes: > or = 6.5%. Monitoring of Diabetes Age (y) Therapeutic Goal (%) Adults: >18 <7.0 Pediatrics: 13-18 <7.5 7-12 <8.0 0- 6 7.5-8.5 [place] [employer]. Diabetes Care 33(S1), May 2009. Laboratory - Chemistry and C hemistry - challengeon 11-17-2022 Anion gap [Moles/Vol] 10 mmol/L 10 - 20 LI-Vzinuns-U [facility] Work Phone: [phone] Calcium [Mass/Vol] 10.0 mg/dL 8.6 - 10.3 MZ-Jwdpeub-I [facility] Work Phone: Chloride [Moles/Vol] 102 mmol/L 98 - 107 YD-Jgrexbh-A [facility] Work Phone: [phone] CO2 [Moles/Vol] 29 mmol/L 21 - 32 MP-Urolog y-A [facility] Work Phone: [phone] Creatinine [Mass/Vol] 0.89 mg/dL See Below CZ-Gyjgcwt-H [facility] Work Phone: [phone] Comment on above: Reference Range: 0.50 - 1.30 Glucose [Mass/Vol] 98 mg/dL 74 - 99 BZ-Byvukdg-L [facility] Work Phone: Comment on above: SOURCE: Potassium [Moles/Vol] 4.4 mmol/L 3.5 - 5.3 EO[facility]Llacapu[facility] Work Phone: [phone] Sodium [Moles/Vol] 137 mmol/L 136 - 145 ZZ-Ussecyi-Q [facility] Work Phone: [phone] Urea nitrogen [Mass/Vol] 19 mg/dL 6 - 23 CD-Iimlhrd-M [facility] Work Phone: [phone] No Panel Informationon 11-17 >90 >90 [facility] Work Phone: [phone] Comment on above: CALCULATIONS OF ESTIMATED GFR ARE PERFOR MED USING THE 2020 CKD-EPI STUDY REFIT EQUATION WITHOUT THE RACE VARIABLE FOR THE IDMS-TRACEABLE CREATININE METHODS.https://jasn.asnjournals.org/content/early//ASN.378 1533696 TSHon 11-17-2022 TSH Qn 2.63 m[IU]/L Normal 0.44 - 3.98 [facility] Comment on above: Result Comment: TSH testing is performed using different testing methodology at [facility] than at other [facility]. Direct result comparisons should only be made within the same method. Performed By: #### T SH2 #### [place] [address] Lab Specimen Source Normal [facility] Comment on above: Performed By: #### TSH2 #### [place] [address] Performed By: #### H BA1E #### [place] [address] Performed By: #### B MP #### [place] [address] TSH - Thyroid Stimulating Ho rmone, Serumon 11-17-2022 TSH Qn 2.63 m[IU]/L See Below [facility] Work Phone: Comment on above: SOURCE: Reference Range: 0.44 - 3.98 TSH testing is performed using different testing methodology at [facility] than at other [facility]. Direct result comparisons should only be made within the same method. IO UA (automated w/o microsc opy)on 11-10-2022 Protein (U) [Mass/Vol] Negative DS-Nfucgfg-G [facility] Work Phone: IO UA (automated w/o microscopy) Negative JU-Yfsevop-X [facility] Work Phone: IO UA (automated w/o microscopy) Normal (0.2-1.0 mg/dl) -Urolog y-A [facility] Work Phone: IO UA (automated w/o microscopy) 5.5 1 BK-Ncnfuhz-Z [facility] Work Phone: IO UA (automated w/o microscopy) 1.025 1 SB-Ckmmlct-X [facility] Work Phone: IO UA (automated w/o microscopy) Clear UO-Mcyxpam-I [facility] Work Phone: IO UA (automated w/o microscopy) Yellow RJ-Dbbttnl-A [facility] Work Phone: Office Visit (Urology)on Follow-up visit Diagnoses/Problems Assessed Rising PSA remaining within normal limits Screening for prostate cancer (V76.44) (Z12.5) Nocturia (788.43) (R35.1) Former smoker (V15.82) (Z87.891) Orders Nocturia IO UA (automated w/o microscopy); Status:Complete - Retrospective By Protocol Authorization; Done: 10Nov2022 07:50AM Performed:In Office; Due:08Feb2023; Last Updated By:Jennifer Escoto; 11/10/2022 7:50:54 AM;Ordered; For:Nocturia; Ordered By:Jaspal Cueto II; Patient Discussion/Summary All available PSA values reviewed, Options discussed. Questions answered. Pros and cons of prostate biopsy reviewed. Other options discussed. Questions answered DIscussed MRI WIll recheck PSA in 6 months Diet changes for prostate health discussed and educational information given. Pros/Cons of prostate health supplements discussed. Treatment options for LUTS reviewed Discussed timed voiding. Discussed fluid and caffeine intake Treatment options for ED reviewed. pros/cons of Testosterone replacement reviewed. Replacement options discussed. Questions answered. Available levels reviewed. F/U 6 months with PSA Chief Complaint establish care History of Present Illnesspatient is here today to establish care..Chronic BPH sx are mild and stable...No urgency or frequency...No dysuria..No hematuria..Nocturia 1-2x..pt is not currently taking any medications for LUTS..Most recent PSA was done 11/07 and was 4.00. Prior PSA was done 11/06 and was 1.92...prior PSA was done 05/07 and was 2.22. No fhx of prostate cancer. He states his PSA does Fluctuate. He has not had a Bx or MRI in the past. ED is mild. Review of Systems Eye: negative Respiratory: No shortness of breath, No cough. Cardiovascular: No chest pain Gastrointestinal: No nausea Genitourinary: Negative except as documented in history of present illness. Hematology/Lymphatics: Patient denies being on blood thinners.. Endocrine: Negative. Immunologic: Not immunocompromised. Musculoskeletal: Integumentary: Negative. Neurologic: Alert and oriented X4. Psychiatric: Negative. Active Problems Problems Abnormal prostatic secretion test (792.9) (R86.9) Alopecia areata (704.01) (L63.9) BMI 29.0-29.9,adult (V85.25) (Z68.29) Elevated coronary artery calcium score (414.00) (R93.1) Encounter for immunization (V03.89) (Z23) Encounter for initial annual wellness visit in Medicare patient (V70.0) (Z00.00) Fatty liver (571.8) (K76.0) Heart murmur (785.2) (R01.1) HTN (hypertension) (401.9) (I10) Hyperglycemia (790.29) (R73.9) Hyperlipidemia LDL goal <100 (272.4) (E78.5) Medicare annual wellness visit, subsequent (V70.0) (Z00.00) BENJAMIN (obstructive sleep apnea) (327.23) (G47.33) Rising PSA remaining within normal limits Screening for colorectal cancer (V76.51,V76.41) (Z12.11,Z12.12) Screening for prostate cancer (V76.44) (Z12.5) Past Medical History Problems History of Basal cell neoplasm (V13.89) (Z86.03) Surgical History Problems History of Colonoscopy 10/2019 Family History Mother FHx: hypertension (V17.49) (Z82.49) Social History Problems Coffee Former smoker (V15.82) (Z87.891) No advance directives (V49.89) (Z78.9) No illicit drug use Occasional alcohol use Allergies Medication Penicillins Hives;; Recorded By: Ana Maria Escoto; 07/18/2019 1:37:57 PM Current Meds Medication NameInstruction Aspirin 81 81 MG Oral Tablet Delayed ReleaseTAKE 1 TABLET DAILY. Atorvastatin Calcium 40 MG Oral TabletTAKE 1 TABLET BY MOUTH EVERY DAY Lisinopril 20 MG Oral TabletTake 1 tablet daily Multi-Vitamins TABSTAKE 1 TABLET DAILY. Mcgraws 3 CAPSTAKE DIRECTED. Vitamin C TABSTAKE 1 TABLET DAILY. Vitals Vital Signs Recorded: 10Nov2022 07:44AM Heart Rate64 Ubwibmli859 Btqlhuwqe69 Qteyhn595 lb 6 oz BMI Lspvnczbdp83.82 kg/m2 BSA Calculated2.09 Tobacco Useb) No PHQ-2 Patient Declined/Screening not indicatedYes Falls Screening (Age 18+)a) No falls within the last year Physical Exam A/O x 3 in No apparent distress Constitutional: General appearance normal Respiratory: Respiratory effort is normal Gastrointestinal:Abdomen is not tender Genitourinary: Kidneys: Not palpable Bilaterally Bladder: Not palpable or tender Scrotum: No mass. No Hydrocele Epididymis: No spermatocele. Not tender Testicles: no mass. WNL Urethra: No Discharge Penis: WNL...No lesions. circumcised Prostate: Symmetric. No Nodules. BENIGN Seminal Vesicles: No mass Sphincter Tone: normal Results/Data IO UA (automated w/o microscopy)10Nov2022 07:50AMPJaspal little II Test NameResultFlagReference IO ColorYellow IO AppearanceClear IO Glucose - UrineNegative IO BilirubinNegative IO KetonesNegative IO Specific Gravity1.025 IO BloodNegative IO pH5.5 IO Protein, UrineNegative IO Urobilinogen Normal (0.2-1.0 mg/dl) IO Nitrite, UrineNegative IO LeukocytesNegative Signatures Electronically signed by : Jaspal Cueto II, MD; Nov 10 2022 (more content not included)... Normal [facility] Tobacco Screening.on 023 Fall risk assessment a) No falls within the last year QO-Ysjpnmd-Y [facility] Work Phone: Tobacco use status CPHS b) No MM-Xedvnwe-G [facility] Work Phone: Tobacco Screening. Yes XT-Rekcmgb-L [facility] Work Phone: BASIC METABOLIC PANELon 10-17 Anion gap [Moles/Vol] 11 mmol/L Normal 10 - 20 [facility] Comment on above: Performed By: #### BMP #### [address] [address] Calcium [Mass/Vol] 9.5 mg/dL Normal 8.6 - 10.3 [facility] Comment on above: Performed By: #### BMP #### [address] [address] Chloride [Moles/Vol] 103 mmol/L Normal 98 - 107 [facility] Comment on above: Performed By: #### BMP #### [address] [address] Creatinine [Mass/Vol] 0.79 mg/dL Normal 0.50 - 1.30 [facility] Comment on above: Performed By: #### BMP #### [address] [address] eGFR MALE >90 Normal >90 [facility] Comment on above: Result Comment: CALCULATIONS OF ESTIMATE D GFR ARE PERFORMED USING THE 2020 CKD-EPI STUDY REFIT EQUATION WITHOUT THE RACE VARIABLE FOR THE IDMS-TRACEABLE CREATININE METHODS. https://jasn.asnjournals.org/content/early/ASN.7692361393 Performed By: #### B MP #### [address] [address] Glucose [Mass/Vol] 109 mg/dL High 74 - 99 [facility] Comment on above: Performed By: #### BMP #### [address] [address] HCO3 (Bld) [Moles/Vol] 28 mmol/L Normal 21 - 32 [facility] Comment on above: Performed By: #### BMP #### [address] [address] Potassium [Moles/Vol] 4.3 mmol/L Normal 3.5 - 5.3 [facility] Comment on above: Performed By: #### BMP #### [address] [address] Sodium [Moles/Vol] 138 mmol/L Normal 136 - 145 [facility] Comment on above: Performed By: #### BMP #### [address] [address] Urea nitrogen [Mass/Vol] 13 mg/dL Normal 6 - 23 [facility] Comment on above: Performed By: #### BMP #### [address] [address] HEMOGLOBIN A1Con 11-08-2022 Glucose [Mass/Vol] 105 mg/dL Normal [facility] Comment on above: Performed By: #### HBA1E #### [address] [address] HbA1c (Bld) [Mass fraction] 5.3 % Normal [facility] Comment on above: Result Comment: Diagnosis of Diabetes-Ad ults Non-Diabetic: < or = 5.6% Increased risk for developing diabetes: 5.7-6.4% Diagnostic of diabetes: > or = 6.5% . Monitoring of Diabetes Age (y) Therapeutic Goal (%) Adults: >18 <7.0 Pediatrics: 13-18 <7.5 7-12 <8.0 0- 6 7.5-8.5 [place] [employer]. Diabetes Care 33(S1), May 2009. Performed By: #### H BA1E #### [address] [address] Hemoglobin A1Con 11-08-2022 Glucose [Mass/Vol] 105 mg/dL [facility] Work Phone: HbA1c (Bld) [Mass fraction] 5.3 % NM[facility] Work Phone: Comment on above: Diagnosis of Diabetes-Adults Non-Diabeti c: < or = 5.6% Increased risk for developing diabetes: 5.7-6.4% Diagnostic of diabetes: > or = 6.5%. Monitoring of Diabetes Age (y) Therapeutic Goal (%) Adults: >18 <7.0 Pediatrics: 13-18 <7.5 7-12 <8.0 0- 6 7.5-8.5 [place] [employer]. Diabetes Care 33(S1), May 2009. LIPID PANEL (CORONARY RISK 2 )on 11-08-2022 Cholesterol [Mass/Vol] 127 mg/dL Normal 0 - 199 [facility] Comment on above: Result Comment: . AGE DESIRABLE BORDERLINE HIGH HIGH 0-19 Y 0 - 169 170 - 199 >/= 200 20-24 Y 0 - 189 190 - 224 >/= 225 >24 Y 0 - 199 200 - 239 >/= 240 All ranges are based on fasting samples. Specific therapeutic targets will vary based on patient-specific cardiac risk. . Pediatric guidelines reference:Pediatrics 2011, 128(S5). Adult guidelines reference: NCEP ATPIII Guidelines, HOLLY 2001, 258:2486-97 . Venipuncture immediately after or during the administration of Metamizole may lead to falsely low results. Testing should be performed immediately prior to Metamizole dosing. Performed By: #### L IPID #### [address] [address] Cholesterol in HDL [Mass/Vol] 53.0 mg/dL Normal [facility] Comment on above: Result Comment: . AGE VERY LOW LOW NORMAL HIGH 0-19 Y < 35 < 40 40-45 ---- 20-24 Y ---- < 40 >45 ---- >24 Y ---- < 40 40-60 >60 . Performed By: #### L IPID #### [address] [address] Cholesterol in LDL [Mass/Vol] 59 mg/dL Normal 0 - 99 [facility] Comment on above: Result Comment: . NEAR BORD AGE DESIRABLE OPTIMAL HIGH HIGH VERY HIGH 0-19 Y 0 - 109 --- 110-129 >/= 130 ---- 20-24 Y 0 - 119 --- 120-159 >/= 160 ---- >24 Y 0 - 99 100-129 130-159 160-189 >/=190 . Performed By: #### L IPID #### [address] [address] Cholesterol in VLDL [Mass/Vol] 15 mg/dL Normal 0 - 40 [facility] Comment on above: Performed By: #### LIPID #### [address] [address] Cholesterol.tota l/Cholesterol in HDL [Mass ratio] 2.4 {ratio} Normal [facility] Comment on above: Result Comment: REF VALUES DESIRABLE < 3.4 HIGH RISK > 5.0 Performed By: #### L IPID #### [address] [address] Triglyceride [Mass/Vol] 75 mg/dL Normal 0 - 149 [facility] Comment on above: Result Comment: . AGE DESIRABLE BORDERLINE HIGH HIGH VERY HIGH 0 D-90 D 19 - 174 ---- ---- ---- 91 D- 9 Y 0 - 74 75 - 99 >/= 100 ---- 10-19 Y 0 - 89 90 - 129 >/= 130 ---- 20-24 Y 0 - 114 115 - 149 >/= 150 ---- >24 Y 0 - 149 150 - 199 200- 499 >/= 500 . Venipuncture immediately after or during the administration of Metamizole may lead to falsely low results. Testing should be performed immediately prior to Metamizole dosing. Performed By: #### L IPID #### [address] [address] Laboratory - Chemistry and C hemistry - challengeon 11-08-2022 Anion gap [Moles/Vol] 11 mmol/L 10 - 20 QK-Eqjjjdb-O [facility] Work Phone: Calcium [Mass/Vol] 9.5 mg/dL 8.6 - 10.3 ND-Vtihqpx-T [facility] [place] Work Phone: Chloride [Moles/Vol] 103 mmol/L 98 - 107 RF-Ipgthoz-A [facility] [place] Work Phone: CO2 [Moles/Vol] 28 mmol/L 21 - 32 MP-Urolog y-A [facility] Work Phone: Creatinine [Mass/Vol] 0.79 mg/dL See Below VD-Oatojsp-D [facility] On-Line Phone: Comment on above: Reference Range: 0.50 - 1.30 Glucose [Mass/Vol] 109 mg/dL above high threshold 74 - 99 [facility] Phone: [phone] Potassium [Moles/Vol] 4.3 mmol/L 3.5 - 5.3 BF-Fuymwmu-L [facility] Work Phone: [phone] Sodium [Moles/Vol] 138 mmol/L 136 - 145 JV-Jtecazr-P [facility] Work Phone: Urea nitrogen [Mass/Vol] 13 mg/dL 6 - 23 [facility] Phone: Lipid Panelon 11-08-2022 Cholesterol [Mass/Vol] 127 mg/dL 0 - 199 [facility] Phone: Comment on above: . AGE DESIRABLE BORDERLINE HIGH HIGH 0-1 9 Y 0 - 169 170 - 199 >/= 200 20-24 Y 0 - 189 190 - 224 >/= 225 >24 Y 0 - 199 200 - 239 >/= 240 All ranges are based on fasting samples. Specific therapeutic targets will vary based on patient-specific cardiac risk.. Pediatric guidelines reference:Pediatrics 2011, 128(S5). Adult guidelines reference: NCEP ATPIII Guidelines, HOLLY 2001, 258:2486-97. Venipuncture immediately after or during the administration of Metamizole may lead to falsely low results. Testing should be performed immediately prior to Metamizole dosing. Cholesterol in HDL [Mass/Vol] 53.0 mg/dL [facility] Phone: Comment on above: . AGE VERY LOW LOW NORMAL HIGH 0-19 Y < 35 < 40 40-45 ---- 20-24 Y ---- < 40 >45 ---- >24 Y ---- < 40 40-60 >60. Cholesterol in LDL [Mass/Vol] 59 mg/dL 0 - 99 [facility] Work Phone: Comment on above: . NEAR BORD AGE DESIRABLE OPTIMAL HIGH H IGH VERY HIGH 0-19 Y 0 - 109 --- 110-129 >/= 130 ---- 20-24 Y 0 - 119 --- 120-159 >/= 160 ---- >24 Y 0 - 99 100-129 130-159 160-189 >/=190. Cholesterol.tota l/Cholesterol in HDL [Mass ratio] 2.4 {ratio} [facility] Work Phone: Comment on above: REF VALUESDESIRABLE < 3.4HIGH RISK > 5.0 Triglyceride [Mass/Vol] 75 mg/dL 0 - 149 [facility] Work Phone: Comment on above: . AGE DESIRABLE BORDERLINE HIGH HIGH YEE Y HIGH 0 D-90 D 19 - 174 ---- ---- ----91 D- 9 Y 0 - 74 75 - 99 >/= 100 ---- 10-19 Y 0 - 89 90 - 129 >/= 130 ---- 20-24 Y 0 - 114 115 - 149 >/= 150 ---- >24 Y 0 - 149 150 - 199 200- 499 >/= 500. Venipuncture immediately after or during the administration of Metamizole may lead to falsely low results. Testing should be performed immediately prior to Metamizole dosing. Lipid Panel 15 mg/dL 0 - 40 [facility] Work Phone: No Panel Informationon 11-08 >90 >90 [facility] Work Phone: Comment on above: CALCULATIONS OF ESTIMATED GFR ARE PERFOR MED USING THE 2020 CKD-EPI STUDY REFIT EQUATION WITHOUT THE RACE VARIABLE FOR THE IDMS-TRACEABLE CREATININE METHODS.https://jasn.asnjournals.org/content//ASN.682 6838726 PROSTATE SPEC.AG,SCREENon PROSTATE SPEC.AG,SCREEN 4.00 ng/mL Normal 0.00 - 4.00 [facility] Comment on above: Result Comment: The FDA requires that th e method used for PSA assay be reported to the physician. Values obtained with different assay methods must not be used interchangeably. This test was performed at [facility] using the Access Hybritech PSA assay is a two-site immunoenzymatic sandwich assay. The assay is approved for measurement of prostate-specific antigen (PSA)in serum and may be used in conjunction with a digital rectal examination in men 50 years and older as an aid in detection of prostate cancer. 8-Jcqua-wdgqzixps inhibitors (e.g. Proscar, Finasteride, Avodart, Dutasteride and Charlee) for the treatment of BPH have been shown to lower PSA levels by an average of 50% after 6 months of treatment. Performed By: #### P [facility] #### [id number] [place] [address] Prostate Spec.Ag, Screenon 0 11-08-2022 Prostate specific Ag [Mass/Vol] 4.00 ng/mL See Below KB-Zwzjgzq-W [facility] [place] Work Phone: Comment on above: Reference Range: 0.00 - 4.00The FDA requ ires that the method used for PSA assay be reported to the physician. Values obtained with different assay methods must not be used interchangeably. This testwas performed at [facility] using the Access Hybritech PSA assay is a two-site immunoenzymatic sandwich assay. The assay is approved for measurement of prostate-specific antigen (PSA)in serum and may be used in conjunction with a digital rectal examination in men 50 years and older as an aid in detection of prostate cancer.0-Ltdfm-kfripghby inhibitors (e.g. Proscar, Finasteride, Avodart, Dutasteride and Charlee) for the treatment of BPH have been shown to lower PSA levels by an average of 50% after 6 months of treatment. Medicare Annual Wellness Vis romy 05-13-2022 Medicare Annual Wellness Visit *Chief Complaint Pt is here today for a 6 month check up, he is also due for his MCR wellness exam. Review labs. This note was generated by using [employer] software. It may contain errors in wording, punctuate, or spelling. He is here today for his routine 6-month checkup and we also completed his annual Medicare wellness visit. He is looking well and reports feeling well. He states life is good and he appreciates all the blessings he has right now. His blood pressure was a little generous when he arrived but it does fluctuate. He did bring in his personal monitor and when he checked his blood pressure today it correlated with what we got. He states that most of the time his systolics are in the 120s as seen on his machine but because I do see a lot of other elevated readings I decided to tweak his medicine a little bit and increase his lisinopril from 10 mg daily up to 20 mg daily. He knows he can use his 10 mg by taking 2 at the very same time and that his new prescription will be at the pharmacy. He will call if he has any problems with this medication. We also conducted a full review of systems and we went through the Medicare questionnaire. We also reviewed his recent laboratory test results. Overall I am pleased with his numbers. His fasting glucose was borderline at 101. He understands and notion of a prediabetic state and we remind him to try to exercise regularly and to eat healthily and try to get his close to ideal body weight as possible. We talked about cancer screening and decided it would be a good idea for him to check in with urology. He will be due for his next PSA in 6 months and we will also be checking his cholesterol at that time. He has been excellent about getting preventative vaccines including the shingles vaccine. He has had no falls in the last 6 months and we talked about fall prevention. I have specifically recommended he put grab bars in the bathroom. He has no symptoms of depression. His memory appears to be excellent and his hearing is also good. He is highly independent and does everything for himself. He does have advanced directives.. 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 History of Present Illness The patient is being seen for the subsequent annual wellness visit. Past Medical, Surgical and Family History: reviewed and updated in chart. Medications and Supplements: Review of all medications by a prescribing practitioner or clinical pharmacist (such as prescriptions, OTCs, herbal therapies and supplements) documented in the medical record. No, the patient is not using opioids. Patient Self Assessment of Health Status: good. Tobacco use: Non-User Alcohol use: User social. Illicit drug use: Non-User Current diet: well balanced diet, does consume adequate fluids and does consume caffeine. Exercise Frequency: infrequently. Depression/Suicide Screening: . During the past 2 weeks, the patient has not felt down, depressed or hopeless. During the past 2 weeks, the patient has not felt little interest or pleasure in doing things. Hearing Impairment: none. Cognitive Impairment: No cognitive impairment observed. Bathing: performs independently. Dressing: performs independently. Walking: performs independently. Toileting: performs independently. Feeding: performs independently. Personal Hygiene: performs independently. Bowels: continent. Bladder: continent. Managing Finances: performs independently. Shopping: performs independently. Managing Medications: performs independently. Housework / Basic Home Maintenance: performs independently. Handling Transportation: performs independently. Preparing Meals: performs independently. Falls Risk Screening:. NANCIE has not fallen in the last 6 months. Home safety risk factors: no grab bars in the bathroom. Advance directives:. Advanced Care Planning discussed and documented advance care plan or surrogate decision maker documented in the medical record. Patient has living will. Patient has healthcare POA. Review of Systems Denies fatigue. Denies shortness of breath, coughing, wheezing Denies chest pain, palpitations, leg edema Denies nausea, vomiting, diarrhea, heartburn, abdominal pain, or black or bloody stools Denies significant joint pain . No back pain Denies feelings of significant anxiety or depression *Active Problems Abnormal prostatic secretion test (792.9) (R86.9) BMI 29.0-29.9,adult (V85.25) (Z68.29) Elevated coronary artery calcium score (414.00) (R93.1) Encounter for immunization (V03.89) (Z23) Encounter for initial annual wellness visit in Medicare patient (V70.0) (Z00.00) Fatty liver (571.8) (K76.0) Heart murmur (785.2) (R01.1) HTN (hypertension) (401.9) (I10) Hyperglycemia (790.29) (R73.9) Hyperlipidemia LDL goal <100 (272.4) (E78.5) Medicare annual wellness visit, subsequent (V70.0) (Z00.00) BENJAMIN (obstructive sleep apnea) (327.23) (G47.33) Rising PSA remainin (more content not included)... Normal [employer] Tobacco Screening.on 022 Fall risk assessment a) No falls within the last year -[place] [employer] Work Phone: Tobacco use status [facility] b) No -[place] [employer] Work Phone: BASIC METABOLIC PANELon 12-2 Anion gap [Moles/Vol] 10 mmol/L Normal 10 - 20 [facility] Comment on above: Performed By: #### BMP #### [address] [address] Calcium [Mass/Vol] 9.1 mg/dL Normal 8.6 - 10.3 [facility] Comment on above: Performed By: #### BMP #### [address] [address] Chloride [Moles/Vol] 102 mmol/L Normal 98 - 107 [facility] Comment on above: Performed By: #### BMP #### [address] [address] Creatinine [Mass/Vol] 0.90 mg/dL Normal 0.50 - 1.30 [facility] Comment on above: Performed By: #### BMP #### [address] [address] eGFR MALE >90 Normal >90 [facility] Comment on above: Result Comment: CALCULATIONS OF ESTIMATE D GFR ARE PERFORMED USING THE 2020 CKD-EPI STUDY REFIT EQUATION WITHOUT THE RACE VARIABLE FOR THE IDMS-TRACEABLE CREATININE METHODS. https://jasn.asnjournals.org/content/early/ASN.1849786204 Performed By: #### B MP #### [address] [address] Glucose [Mass/Vol] 101 mg/dL High 74 - 99 [facility] Comment on above: Performed By: #### BMP #### [address] [address] HCO3 (Bld) [Moles/Vol] 29 mmol/L Normal 21 - 32 [facility] Comment on above: Performed By: #### BMP #### [address] [address] Potassium [Moles/Vol] 4.3 mmol/L Normal 3.5 - 5.3 [facility] Comment on above: Performed By: #### BMP #### [address] [address] Sodium [Moles/Vol] 137 mmol/L Normal 136 - 145 [facility] Comment on above: Performed By: #### BMP #### [address] [address] Urea nitrogen [Mass/Vol] 18 mg/dL Normal 6 - 23 [facility] Comment on above: Performed By: #### BMP #### [address] [address] HEMOGLOBIN A1Con 05-10-2022 Glucose [Mass/Vol] 114 mg/dL Normal [facility] Comment on above: Performed By: #### HBA1E #### [address] [address] HbA1c (Bld) [Mass fraction] 5.6 % Normal [facility] Comment on above: Result Comment: Diagnosis of Diabetes-Ad ults Non-Diabetic: < or = 5.6% Increased risk for developing diabetes: 5.7-6.4% Diagnostic of diabetes: > or = 6.5% . Monitoring of Diabetes Age (y) Therapeutic Goal (%) Adults: >18 <7.0 Pediatrics: 13-18 <7.5 7-12 <8.0 0- 6 7.5-8.5 [place] [employer]. Diabetes Care 33(S1), May 2009. Performed By: #### H BA1E #### [address] [address] Hemoglobin A1Con 05-10-2022 Glucose [Mass/Vol] 114 mg/dL [employer] Work Phone: HbA1c (Bld) [Mass fraction] 5.6 % [facility] [employer] Work Phone: Comment on above: Diagnosis of Diabetes-Adults Non-Diabeti c: < or = 5.6% Increased risk for developing diabetes: 5.7-6.4% Diagnostic of diabetes: > or = 6.5%. Monitoring of Diabetes Age (y) Therapeutic Goal (%) Adults: >18 <7.0 Pediatrics: 13-18 <7.5 7-12 <8.0 0- 6 7.5-8.5 [place] [employer]. Diabetes Care 33(S1), May 2009. Laboratory - Chemistry and C hemistry - challengeon 05-10-2022 Anion gap [Moles/Vol] 10 mmol/L 10 - 20 [email or web address] Phone: Calcium [Mass/Vol] 9.1 mg/dL 8.6 - 10.3 [email or web address] Phone: Chloride [Moles/Vol] 102 mmol/L 98 - 107 [email or web address] Phone: CO2 [Moles/Vol] 29 mmol/L 21 - 32 [facility] Work Phone: Creatinine [Mass/Vol] 0.90 mg/dL See Below [email or web address] Phone: Comment on above: Reference Range: 0.50 - 1.30 Glucose [Mass/Vol] 101 mg/dL above high threshold 74 - 99 [email or web address] Phone: Potassium [Moles/Vol] 4.3 mmol/L 3.5 - 5.3 [email or web address] Phone: Sodium [Moles/Vol] 137 mmol/L 136 - 145 [email or web address] Phone: Urea nitrogen [Mass/Vol] 18 mg/dL 6 - 23 [email or web address] Phone: No Panel Informationon 05-10 >90 >90 [email or web address] Phone: Comment on above: CALCULATIONS OF ESTIMATED GFR ARE PERFOR MED USING THE 2020 CKD-EPI STUDY REFIT EQUATION WITHOUT THE RACE VARIABLE FOR THE IDMS-TRACEABLE CREATININE METHODS.https://jasn.asnjournals.org/content//ASN.776 7110508 Office Visit (Family Soren haji)on 11-11-2021 Follow-up visit Diagnoses/Problems HTN (hypertension) (401.9) (I10) Hyperglycemia (790.29) (R73.9) Hyperlipidemia LDL goal <100 (272.4) (E78.5) Patient Discussion/Summary Please give him the printed handout on lowering blood pressure through lifestyle changes We will see him back in approximately 6 months ( late Apr for Medicare wellness) and he will remember to bring his blood pressure monitor with him. Please order a fasting BMP with hemoglobin A1c and diagnosis of hypertension with hyperglycemia. Chief Complaint Pt presents for routine 6 mo check up; lab and med review. This note was generated by using [employer] software. It may contain errors in wording, punctuate, or spelling. This note was generated by using [employer] software. It may contain errors in wording, punctuate, or spelling. He is here today for his 6-month checkup. He is looking well and reports feeling well. We conducted a full review of systems. When he arrived his blood pressure was a bit generous and after sitting for a while it did come down a few points. He states he checks it at home and gets systolic readings anywhere from 125 up to 135. His diastolics are around the 80 range. We talked about the goals and blood pressure management. We talked about increasing his lisinopril but he would like to try some lifestyle modifications to see if he can get it down without adding medication. I am giving him a handout that goes over some tips for improving blood pressure which he obviously understands would include weight loss and exercise. We also discussed limiting salt in the diet. We also went over the results of recent lab work and overall his numbers are looking quite good. His cholesterol was excellent. Unfortunately his blood glucose was slightly raised at 108 and we have discussed the notion of a prediabetic state. He understands that exercise and weight loss can reduce his risk of diabetes significantly. We also reviewed his PSA which came down nicely from his last checkup. We will continue to monitor. He also states he was in [place] for a visit and he thinks that he may been bitten by a spider on his left elbow. He states it blistered and then peeled off and he states that the lesion we see today is improving. We talked about protecting it at bedtime and he will call if it does not completely heal up. We also screen for depression and he is doing quite well. We will see him back in approximately 6 months. Adult Risk Screening Depression/Suicide Screening: During the past 2 weeks, the patient has not felt down, depressed or hopeless. During the past 2 weeks, the patient has not felt little interest or pleasure in doing things. Review of Systems Denies fatigue. Denies shortness of breath, coughing, wheezing Denies chest pain, palpitations, leg edema Denies nausea, vomiting, diarrhea, heartburn, abdominal pain, or black or bloody stools Denies significant joint pain . No back pain Denies feelings of significant anxiety or depression Active Problems Abnormal prostatic secretion test (792.9) (R86.9) BMI 29.0-29.9,adult (V85.25) (Z68.29) Elevated coronary artery calcium score (414.00) (R93.1) Encounter for immunization (V03.89) (Z23) Encounter for initial annual wellness visit in Medicare patient (V70.0) (Z00.00) Fatty liver (571.8) (K76.0) Heart murmur (785.2) (R01.1) HTN (hypertension) (401.9) (I10) Hyperglycemia (790.29) (R73.9) Hyperlipidemia LDL goal <100 (272.4) (E78.5) Medicare annual wellness visit, subsequent (V70.0) (Z00.00) BENJAMIN (obstructive sleep apnea) (327.23) (G47.33) Rising PSA remaining within normal limits Screening for colorectal cancer (V76.51,V76.41) (Z12.11,Z12.12) Screening for prostate cancer (V76.44) (Z12.5) Past Medical History History of Basal cell neoplasm (V13.89) (Z86.03) Surgical History History of Colonoscopy 10/2019 Family History FHx: hypertension (V17.49) (Z82.49) Social History Coffee Former smoker (V15.82) (Z87.891) No advance directives (V49.89) (Z78.9) No illicit drug use Occasional alcohol use Allergies Penicillins Hives;; Recorded By: Ana Maria Escoto; 07/18/2019 1:37:57 PM Current Meds Medication NameInstructionReason Aspirin 81 81 MG TBECTAKE 1 TABLET DAILY.Elevated coronary artery calcium score Multi-Vitamins TABSTAKE 1 TABLET DAILY.Health Maintenance Mcgraws 3 CAPSTAKE DIRECTED.Health Maintenance Vitamin C TABSTAKE 1 TABLET DAILY.Health Maintenance Lisinopril 10 MG Oral TabletTAKE 1 TABLET BY MOUTH EVERY DAYHTN (hypertension) Atorvastatin Calcium 40 MG Oral TabletTAKE 1 TABLET BY MOUTH EVERY DAYHyperlipidemia LDL goal <100 Vitals Vital Signs Recorded: 11Nov2021 09:01AM Heart Rate68 Rsclosdo955 Hwkelccoa45 Height6 ft Eijkmx089 lb 8 oz BMI Phapqewlir85.55 BSA Calculated2.18 Tobacco Useb) No Falls Screening (Age 18+)a) No falls within the last year O2 [id number] Results/Data Basic Metabolic [id number] 06:50AMSana Dexter Test NameResultFlagReference G (more content not included)... Normal [facility] Tobacco Screening.on 022 Fall risk assessment a) No falls within the last year [email or web address] Phone: Tobacco use status [facility] b) No [facility] Phone: Laboratory - Chemistry and C hemistry - challengeon 11-05-2021 Anion gap [Moles/Vol] 9 mmol/L below low threshold 10 - 20 [facility] Phone: Calcium [Mass/Vol] 9.2 mg/dL 8.6 - 10.3 [facility] Phone: Chloride [Moles/Vol] 103 mmol/L 98 - 107 [facility] Phone: CO2 [Moles/Vol] 29 mmol/L 21 - 32 [facility] Phone: Creatinine [Mass/Vol] 0.88 mg/dL See Below [facility] [employer] Phone: Comment on above: Reference Range: 0.50 - 1.30 Glucose [Mass/Vol] 108 mg/dL above high threshold 74 - 99 [facility] Phone: Potassium [Moles/Vol] 4.4 mmol/L 3.5 - 5.3 [facility] Phone: Sodium [Moles/Vol] 137 mmol/L 136 - 145 [facility] Phone: Urea nitrogen [Mass/Vol] 17 mg/dL 6 - 23 [facility] Phone: Lipid Panelon 11-05-2021 Cholesterol [Mass/Vol] 147 mg/dL 0 - 199 [facility] Phone: Comment on above: . AGE DESIRABLE BORDERLINE HIGH HIGH 0-1 9 Y 0 - 169 170 - 199 >/= 200 20-24 Y 0 - 189 190 - 224 >/= 225 >24 Y 0 - 199 200 - 239 >/= 240 All ranges are based on fasting samples. Specific therapeutic targets will vary based on patient-specific cardiac risk.. Pediatric guidelines reference:Pediatrics 2011, 128(S5). Adult guidelines reference: NCEP ATPIII Guidelines, HOLLY 2001, 258:2486-97. Venipuncture immediately after or during the administration of Metamizole may lead to falsely low results. Testing should be performed immediately prior to Metamizole dosing. Cholesterol in HDL [Mass/Vol] 48.0 mg/dL [facility] Phone: Comment on above: . AGE VERY LOW LOW NORMAL HIGH 0-19 Y < 35 < 40 40-45 ---- 20-24 Y ---- < 40 >45 ---- >24 Y ---- < 40 40-60 >60. Cholesterol in LDL [Mass/Vol] 82 mg/dL 0 - 99 [facility] Phone: Comment on above: . NEAR BORD AGE DESIRABLE OPTIMAL HIGH H IGH VERY HIGH 0-19 Y 0 - 109 --- 110-129 >/= 130 ---- 20-24 Y 0 - 119 --- 120-159 >/= 160 ---- >24 Y 0 - 99 100-129 130-159 160-189 >/=190. Cholesterol.tota l/Cholesterol in HDL [Mass ratio] 3.1 {ratio} [employer] Phone: Comment on above: REF VALUESDESIRABLE < 3.4HIGH RISK > 5.0 Triglyceride [Mass/Vol] 83 mg/dL 0 - 149 [employer] Phone: Comment on above: . AGE DESIRABLE BORDERLINE HIGH HIGH YEE Y HIGH 0 D-90 D 19 - 174 ---- ---- ----91 D- 9 Y 0 - 74 75 - 99 >/= 100 ---- 10-19 Y 0 - 89 90 - 129 >/= 130 ---- 20-24 Y 0 - 114 115 - 149 >/= 150 ---- >24 Y 0 - 149 150 - 199 200- 499 >/= 500. Venipuncture immediately after or during the administration of Metamizole may lead to falsely low results. Testing should be performed immediately prior to Metamizole dosing. Lipid Panel 17 mg/dL 0 - 40 [employer] Phone: No Panel Informationon 11-05 >90 >90 [employer] Phone: Comment on above: CALCULATIONS OF ESTIMATED GFR ARE PERFOR MED USING THE 2020 CKD-EPI STUDY REFIT EQUATION WITHOUT THE RACE VARIABLE FOR THE IDMS-TRACEABLE CREATININE METHODS.https://jasn.asnjournals.org/content//ASN.417 1431766 Prostate Specific Antigenon 11-05-2021 Prostate specific Ag [Mass/Vol] 1.92 ng/mL See Below [employer] Phone: Comment on above: Reference Range: 0.00 - 4.00The FDA requ ires that the method used for PSA assay be reported to the physician. Values obtained with different assay methods must not be used interchangeably. This [facility]was [facility] using the ObserveIT PSA assay is a two-site immunoenzymatic sandwich assay. The assay is approved for measurement of prostate-specific antigen (PSA)in serum and may be used in conjunction with a digital rectal examination in men 50 years and older as an aid in detection of prostate cancer.1-Wbeed-ewclfjwkk inhibitors (e.g. Proscar, Finasteride, Avodart, Dutasteride and Charlee) for the treatment of BPH have been shown to lower PSA levels by an average of 50% after 6 months of treatment. Hemoglobin A1Con 05-09-2021 Glucose [Mass/Vol] 111 mg/dL [facility] Work Phone: HbA1c (Bld) [Mass fraction] 5.5 % [facility] Phone: Comment on above: Diagnosis of Diabetes-Adults Non-Diabeti c: < or = 5.6% Increased risk for developing diabetes: 5.7-6.4% Diagnostic of diabetes: > or = 6.5%. Monitoring of Diabetes Age (y) Therapeutic Goal (%) Adults: >18 <7.0 Pediatrics: 13-18 <7.5 7-12 <8.0 0- 6 7.5-8.5 [place] [employer] [employer]. Diabetes Care 33(S1), May 2009. Laboratory - Chemistry and C hemistry - challengeon 05-09-2021 Anion gap [Moles/Vol] 9 mmol/L below low threshold 10 - 20 [facility] Work Phone: Calcium [Mass/Vol] 9.3 mg/dL 8.6 - 10.3 [facility] Work Phone: Chloride [Moles/Vol] 101 mmol/L 98 - 107 [facility] Phone: CO2 [Moles/Vol] 30 mmol/L 21 - 32 [facility] Work Phone: Creatinine [Mass/Vol] 0.82 mg/dL See Below [facility] Work Phone: Comment on above: Reference Range: 0.50 - 1.30 Glucose [Mass/Vol] 92 mg/dL 74 - 99 [facility] Work Phone: Potassium [Moles/Vol] 3.9 mmol/L 3.5 - 5.3 [facility] [employer] [place] Work Phone: Sodium [Moles/Vol] 136 mmol/L 136 - 145 [facility] [employer] [place] Work Phone: Urea nitrogen [Mass/Vol] 19 mg/dL 6 - 23 [facility] [employer] [place] Work Phone: No Panel Informationon 05-09 >60 >60 [facility] [employer] [place] Work Phone: Comment on above: CALCULATIONS OF ESTIMATED GFR ARE PERFOR MED USING THE MDRD STUDY EQUATION FOR THE IDMS-TRACEABLE CREATININE METHODS. CLIN CHEM 2007;53:766-72 Prostate Spec.Ag, Screenon 1 07-10-2020 Prostate specific Ag [Mass/Vol] 2.22 ng/mL See Below [facility] [employer] [place] Work Phone: Comment on above: Reference Range: 0.00 - 4.00The FDA requ ires that the method used for PSA assay be reported to the physician. Values obtained with different assay methods must not be used interchangeably. This testwas performed at [facility] using the [employer] PSA assay is a two-site immunoenzymatic sandwich assay. The assay is approved for measurement of prostate-specific antigen (PSA)in serum and may be used in conjunction with a digital rectal examination in men 50 years and older as an aid in detection of prostate cancer.3-Tyzhr-oswnnncjc inhibitors (e.g. Proscar, Finasteride, Avodart, Dutasteride and Charlee) for the treatment of BPH have been shown to lower PSA levels by an average of 50% after 6 months of treatment. Tobacco Screening.on 021 Fall risk assessment a) No falls within the last year [facility] Phone: Tobacco use status CPHS b) No [facility] [employer] Phone: ALT - Alanine Aminotransfera se, Serumon 11-10-2020 ALT With P-5'-P [Catalytic activity/Vol] 35 U/L 10 - 52 [facility] [employer] Phone: Comment on above: Patients treated with Sulfasalazine may generate falsely decreased results for ALT. Hemoglobin A1Con 11-10-2020 Glucose [Mass/Vol] 105 mg/dL [facility] [employer] Phone: HbA1c (Bld) [Mass fraction] 5.3 % [facility] [employer] Phone: Comment on above: Diagnosis of Diabetes-Adults Non-Diabeti c: < or = 5.6% Increased risk for developing diabetes: 5.7-6.4% Diagnostic of diabetes: > or = 6.5%. Monitoring of Diabetes Age (y) Therapeutic Goal (%) Adults: >18 <7.0 Pediatrics: 13-18 <7.5 7-12 <8.0 0- 6 7.5-8.5 [place] [employer] [employer]. Diabetes Care 33(S1), May 2009. Laboratory - Chemistry and C hemistry - challengeon 11-10-2020 Anion gap [Moles/Vol] 8 mmol/L below low threshold 10 - 20 [facility] Phone: AST With P-5'-P [Catalytic activity/Vol] 30 U/L 9 - 39 [facility] Work Phone: Calcium [Mass/Vol] 9.5 mg/dL 8.6 - 10.3 [facility] [employer] Phone: Chloride [Moles/Vol] 104 mmol/L 98 - 107 [facility] [employer] Phone: CO2 [Moles/Vol] 29 mmol/L 21 - 32 [facility] Work Phone: Creatinine [Mass/Vol] 0.91 mg/dL See Below [facility] Phone: Comment on above: Reference Range: 0.50 - 1.30 Glucose [Mass/Vol] 98 mg/dL 74 - 99 [facility] Phone: Potassium [Moles/Vol] 4.3 mmol/L 3.5 - 5.3 [facility] Work Phone: Sodium [Moles/Vol] 137 mmol/L 136 - 145 [facility] Phone: Urea nitrogen [Mass/Vol] 19 mg/dL 6 - 23 [facility] Phone: No Panel Informationon 11-10 >60 >60 [facility] Phone: Comment on above: CALCULATIONS OF ESTIMATED GFR ARE PERFOR MED USING THE MDRD STUDY EQUATION FOR THE IDMS-TRACEABLE CREATININE METHODS. CLIN CHEM 2007;53:766-72 CT Angio Coronary Arteries w [facility] Heart Flowon 12-22-2019 CT Angio Coronary Arteries with Heart Flow Interpreted by: ROCKY12/22/19 12:43MRN: [id number] Name: NANCIE SÁNCHEZ STUDY:CTA CORONARY ART WITH HEARTFLOW IF SCORE >30%.; 12/22/2019 12:05 pm INDICATION:false positive stress test. . There is need to define coronaryanatomy. COMPARISON:None. ORDERING CLINICIAN:VIRGINIA HIDALGO TECHNIQUE:Using multi-detector CT technology, axial, sequential imaging withprospective gating was performed of the chest following theintravenous administration of contrast material. A low-osmolarcontrast agent was used ( 70 ml of Omnipaque 350). The patient was premedicated with 5 mg i.v metoprolol and 0.8 mgsublingual nitroglycerin for heart rate control and coronarydilation, respectively. For optimization of anatomic evaluation, multiplanar reconstruction,maximum intensity projections, and advanced 3-D off-linepostprocessing were performed on a dedicated stand-alone workstationunder the direct supervision of the interpreting physician. CT Dose-Length Product (DLP): 431.7 mGy/cmCT Dose Reduction Employed: Yes (Prospective triggering, iterativereconstruction) FINDINGS:POTENTIAL STUDY LIMITATIONS: None. CORONARY ARTERIES:Coronary artery calcium score of 102 with 92.6 on LAD CORONARY ANATOMY:There is normal origin of the coronary arteries. LEFT MAIN CORONARY ARTERY:The left main is normal sized vessel that bifurcates into the LADand circumflex.There is no significant atherosclerotic change or stenotic disease. LEFT ANTERIOR DESCENDING ARTERY:The LAD is a normal size vessel that wraps around the apex.It gives rise to 1 acute diagonal branches.There is significant calcific coronary artery disease in the proximalLAD around the bifurcation of the diagonal which could have greaterthan 75% stenosis which is not resolvable due to beam hardeningartifact by excess amount of calcium. I correlated this finding withthe nuclear stress test which did not show any anterior wall ischemia. LEFT CIRCUMFLEX ARTERY:The LCX is a normal size vessel, which is non-dominant.It gives rise to 1 obtuse marginal branches.There is no significant atherosclerotic change or stenotic disease.Faint calcification noted in proximal segments RIGHT CORONARY ARTERY:The RCA is a normal size vessel, which is dominant .It gives rise to a conus branch, juan branch, and 2 acutemarginal branches. In its distal segment it bifurcates into the PDAand PV branch.There is faint calcification noted in the proximal segment with lessthan 25% stenosis CARDIAC CHAMBERS:The cardiac chambers demonstrate normal atrioventricular andventriculoarterial concordance, and systemic and pulmonary venousreturn. LEFT ATRIUM:Normal size (23.9 - cm2) RIGHT ATRIUM:Normal size (19.8 - cm2) INTERATRIAL SEPTUM:Intact. LEFT VENTRICLE:Normal size RIGHT VENTRICLE:Normal size AORTIC VALVE:The aortic valve is trileaflet in morphology. No calcifications. MITRAL VALVE:No thickening/calcification. THORACIC AORTA:The visualized thoracic aorta is normal in course, caliber, andcontour.There is no acute aortic pathology, such as dissection, intramuralhematoma, or contained rupture.The aortic arch is not included on this examination. Ascending aortais 3.4 cm at the pulmonary bifurcation and descending aorta is 2.1 cmthe pulmonary bifurcation PERICARDIUM:There is no pericardial effusion of thickening. Noncardiac findingsPatient has a 1.5 mm calcified nodule in the lingula left lung andanother 1.5 mm calcified nodule in the lingula. Also noted to have a2.2 mm nodule on the right lower lung which is calcified as well.Mild mitral annular calcificationSplenic calcification notedMild calcification of the aortic arch notedCalcific lymph node in the right subcarinaAtelectasis of the lung bases IMPRESSION:1. Possibly greater than 75% calcific stenosis of the proximal leftanterior descending however this does not correlate with thepatient's NM stress findings. Mild non-stenotic luminalirregularities noted in the RCA and left circumflex artery. Thestress test noted reversible defect in RCA territory. Upon discussionwith the patient, the patient agrees on protective therapy withaspirin and a high-intensity statin along with physical activitydriven further intervention/investigation . If the patient hasexertional chest pain or shortness of breath or any other exertionalsymptoms we will not hesitate to go ahead and perform a left heartcatheterization at that point. Risk and benefit of both approachesexplained.2. Noncardiac findings noted as above. Those nodules do not needfurther workup. Electronically signed by: ROCKY 12/22/19 12:43 Normal [place] [address] [employer] Work Phone: Metabolic Panelon 12-19-2019 Anion gap [Moles/Vol] 9 mmol/L below low threshold 10 - 20 [place] [address] [employer] Work Phone: [phone] Calcium [Mass/Vol] 9.6 mg/dL 8.6 - 10.3 [place] [address] [employer] Work Phone: Chloride [Moles/Vol] 104 mmol/L 98 - 107 [place] [address] [employer] Work Phone: CO2 [Moles/Vol] 29 mmol/L 21 - 32 [place] [address] [employer] Work Phone: [phone] Creatinine [Mass/Vol] 0.88 mg/dL See Below [facility] [address] Work Phone: Comment on above: Reference Range: 0.50 - 1.30 Glucose [Mass/Vol] 104 mg/dL above high threshold 74 - [address] Work Phone: Potassium [Moles/Vol] 4.3 mmol/L 3.5 - 5.[address] Work Phone: Sodium [Moles/Vol] 138 mmol/L 136 - [address] Work Phone: Urea nitrogen [Mass/Vol] 18 mg/dL 6 - [address] Work Phone: Otheron 12-19-2019 >60 >[address] Work Phone: Comment on above: CALCULATIONS OF ESTIMATED GFR ARE PERFOR MED USING THE MDRD STUDY EQUATION FOR THE IDMS-TRACEABLE CREATININE METHODS. CLIN CHEM 2007;53:766-72 Otheron 11-21-2019 Interpreted by: DREW JAIN11/21/19 10:52MRN: [id number] Name: NANCIE SÁNCHEZ STUDY:CARDIAC STRESS/REST INJECTION; CARDIAC STRESS/REST (MYOCARDIALPERFUSION/MIBI) ; PART 2 STRESS OR REST (NO CHARGE); 11/21/2019 9:32 am INDICATION:CHEST PAIN Abnormal findings on diagnostic imaging of heart andcoronary circulation Other chest pain. COMPARISON:None. [id number]; [id number] ORDERING CLINICIAN:SANA DEXTER TECHNIQUE:DIVISION OF NUCLEAR CRITICAL ACCESS HOSPITAL MYOCARDIAL PERFUSION SCAN, ONE DAY PROTOCOL The patient received an intravenous dose of 11.7 mCi of Tc-99mMyoview and resting emission tomographic (SPECT) images of themyocardium were acquired. The patient then underwent treadmill stressexercising to 98 % of MPHR and achieving 11.5 METS. At peak stressan additional dose of 33 mCi of Tc-99m Myoview was administeredand stress phase SPECT images of the myocardium were then acquired.This acquisition included ECG-gated images to assess and quantifyventricular function. Low-dose chest CT was also obtained forattenuation correction purposes. FINDINGS:There is mild to moderate reversible defect in the mid to basalinferior wall of left ventricle. There is additional moderatereversible defect in the distal inferior wall of the left ventricle. ECG-gated images demonstrate normal LV size and myocardialcontractility with an LV ejection fraction of 60 % (normal above 45percent). Calcified right hilar lymph nodes and multiple calcified granulomasin the spleen are likely a sequela from prior granulomatous infection. IMPRESSION:1. Mild to moderate stress induced ischemia in the mid to basalinferior wall and moderate stress induced ischemia in the distalinferior wall of the left ventricle.2. Well-maintained left ventricular function. Finding discussed with Dr. Dexter by president ceo & founder Dr. Guerrero at10:30 am.I personally reviewed the images/study and I agree with the findingsas stated. This study was interpreted at [place], [place].Electronically signed by: PETAR JAIN 11/21/19 10:52 Normal [facility] [employer] Work Phone: [phone] [address] [place], [place] [address]Phone ext-[phone], Dbziyeh Treadmill Stress TestPatient Name: NANCIE SÁNCHEZ Ordering Physician:Study Date: 11/21/2019 Reading Physician: [id number] Hidalgo MDMRN/PID: [id number] Supervising Physician:Accession/Order# : [id number] Referring Physician: [id number] Sana RoyalDate of : 1955 PCP:Gender: M Fellow:Admit Date: 11/21/2019 Fellow:Admission Status: Outpatient Toggle Press Folder And Feeder: Cecilio Decker CONGRESSIONAL ASSISTANT, CCTHeight: 182.88 cm Nurse: NAWeight: 94.80 kg Sterile Preparation Technician: NABSA: 2.17 m2 Technologist:BMI: 28.35 kg/m2 Additional Staff:Age: 64 years cc report to:Patient Location: [facility] Stress Lab cc report to:Study Type: Syngo Nuclear OrderDiagnosis/ICD: R93.1-Abnormal findings on diagnostic imaging of heart andcoronary circulationIndication: ABN CACSProcedure/CPT: Stress Test Interpretation-[id number]; Stress Test Supervision-[id number] Risk: Low: Patient has low risk for sustaining a fall; environmental safety interventions in place.Study Details: Correct procedure and correct patient verified verbally and withID Band checked.Patient History:Allergies: PCN.Smoker: Former.Diabetes: No.Medications: Atorvastatin and lisinopril.Patient Performance: The patient exercised to stage IV on a Zay protocol for 11 minutes and 00 seconds, achieving 11.5 METS. Patient received a total of 33 mCi of MIBI at 8:19:07 AM. The peak heart rate achieved was 152 bpm, which was 98 % of the age predicted target heart rate of 155 bpm. The resting blood pressure was 139/81 mmHg with a heart rate of 67 bpm. The standing blood pressure was 136/78 mmHg with a heart rate of 69 bpm. The patient developed shortness of breath during the stress exam. The symptoms resolved with rest 4 minutes into recovery. The blood pressure response was hypertensive. The test was terminated due to: dyspnea, MPHR >85% and fatigue.Baseline ECG: Resting ECG showed normal sinus rhythm with normal tracing.Stress ECG: Stress ECG showed sinus tachycardia, with no abnormal findings.Stress Stage Data:+ +-- -+------+-------+\F\ \F\HR \F\Sys BP\F\Sawyer BP\F\+ +-- -+------+-------+\F\Baseli ne Resting \F\67 \F\139 \F\81 \F\+ +---+ ------+-------+\F\Baseline Standing\F\69 \F\136 \F\78 \F\+ +---+ ------+-------+\F\Stage I \F\101\F\173 \F\75 \F\+ +---+ ------+-------+\F\Stage II \F\108\F\195 \F\78 \F\+ +---+ ------+-------+\F\Stage III \F\132\F\233 \F\110 \F\+ +---+ ------+-------+\F\Stage IV \F\148\F\207 \F\94 \F\+ +---+ ------+-------+Recovery ECG: Recovery ECG showed normal sinus rhythm, with no abnormal findings. The heart rate recovery was normal.+ +---+- -----+-------+\F\ \F\HR \F\Sys BP\F\Sawyer BP\F\+ +---+--- ---+-------+\F\Recovery I \F\134\F\ \F\ \F\+ +---+----- -+-------+\F\Recovery II \F\116\F\215 \F\86 \F\+ +---+----- -+-------+\F\Recovery III\F\96 \F\175 \F\75 \F\+ +---+----- -+-------+Summary:1. Negative EKG stress test for ischemia.2. Baseline EKG shows sinus rhythm with no ST-T changes assistive of ischemia possible LVH.3. Good excess tolerance for age achieving 11.5 METs, chronotropic index of 0.92, salmon treadmill score of 11.4. With exercise no ST-T changes, no chest pain, no arrhythmias.5. Good blood pressure response to exercise.6. Normal heart rate recovery at 1 minute.7. Nuclear image results are reported separately.8. The adequate level of stress was achieved.[id number] Virginia Hidalgo MDElectronically signed on 11/21/2019 at 9:46:40 AM Final [facility] Work Phone: Otheron 10-24-2019 [email or web address]={[email or web address] [id number] [id number]} [facility] Work Phone: Otheron 10-22-2019 NOT DETECTED See Below [facility] Work Phone: Comment on above: SOURCE: Nasal, NasopharyngealReference R mable: Not Detected.This assay is designed to detect SARS-CoV-2 based on replication of specific regions of the RNA from the SARS-CoV-2 virus. A Not Detected result does not preclude 2019-nCoV infection since the adequacy of sample collection and/or low viral burden may result in presence of viral nucleic acids below the clinical sensitivity of this test method. Fact sheet for providers: https://www.fda.gov/media/951589/downloadFact sheet for patients: https://www.fda.gov/media/221018/downloadThis test has been validated by the nut former but [facility] independent review of this validation is pending. This test has been verified by [facility] ([facility]). This test is only authorized for the duration of time that circumstances exist to justify the authorization of the emergency use of in vitro diagnostic tests for the detection of SARS-CoV-2 virus and/or diagnosis of COVID-19 infection under section 564(b)(1) of the Act, 21 U.S.C. 360bbb-3(b)(1), unless the authorization is terminated or revoked sooner. [facility] is certified under CLIA-88 as qualified to perform high complexity testing. Testing is performed in the [facility] laboratories located at [address] [place] [address]. Lipid Profileon 05-15-2017 Cholesterol 299 mg/dL High 50-200 [facility] Comment on above: Result Comment: TOTAL CHOLEESTEROL: <200 NORMAL 200 - 239 BORDERLINE HIGH >240 HIGH Performed By: #### [id number] ####GIL [address]Ufia[address] [place] [address] Cholesterol in VLDL mass conc 39 mg/dL Normal [facility] Comment on above: Performed By: #### [id number] ####GIL Rem Paae[address] [place] [address] HDL Cholesterol 52 mg/dL Normal >=41 [facility] Comment on above: Performed By: #### [id number] ####GIL Rem Weiy[address] [place] [address] LDL Cholesterol 208 mg/dL High 0-130 [facility] Comment on above: Result Comment: <100 [id number] NEAR / ABOVE [id number] BORDERLINE [id number] HIGH>190 VERY HIGHCALC LDL NOT VALID WHEN TRIGLYCERIDE IS >400 MG/DL Performed By: #### [id number] ####GIL YckBkrj[address] [place] [address] Triglyceride 194 mg/dL High 35-150 [facility] Comment on above: Result Comment: <150 [id number] BORDE RLINE [id number] HIGH>500 VERY HIGH Performed By: #### [id number] ####GIL TftDnfm[address] [place] [address] PSA Screenon 05-15-2017 PSA 1.96 ng/mL Normal [facility] Comment on above: Result Comment: AGE-SPECIFIC REFERENCE R ANGES FOR SERUM PSA REFERENCE RANGE NG/ML AGE ASIANS BLACKS WHITE 40-49 0-2 0-2 0-2.5 50-59 0-3 0-4 0-3.5 60-69 0-4 0-4.5 0-4.5 70-79 0-5 0-5.5 0-6.5 PSA INCREASES WITH AGE, RACE, AND EJACULATION WITHIN 48 HRS. [facility] VOL24,NO.2, , PG.339 Performed By: #### 1 [id number] ####GIL RriJkcu[address] [place] [address] Vital Signs Date Time Vital Sign Value Performing Clinician Facility 09-28-2024 13:52-0400 Body temperature 97.5 [degF] Dr. Harvinder Mendoza DO Work Phone: [phone] [place] [address] 09-28-2024 13:52-0400 Body weight 100.[address] Harvinder Mendoza DO Work Phone: [phone] [address] 09-28-2024 13:52-0400 Diastolic blood pressure 75 mm[Hg] Dr. Harvinder Mendoza DO Work Phone: [phone] [address] 09-28-2024 13:52-0400 Heart rate 76 /min Dr. Harvinder Mendoza DO Work Phone: [phone] [address] 09-28-2024 13:52-0400 Respiratory rate 16 /min Dr. Harvinder Mendoza DO Work Phone: [phone] [address] 09-28-2024 13:52-0400 SaO2% (BldA) [Mass fraction] 97 % Dr. Harvinder Mendoza DO Work Phone: [facility] 09-28-2024 13:52-0400 Systolic blood pressure 137 mm[Hg] Dr. Harvinder Mendoza DO Work Phone: [facility] [facility] 09-06-2024 11:34-0400 Body temperature 97.8 [degF] Dr. Harvinder Mendoza DO Work Phone: [facility] 09-06-2024 11:34-0400 Body weight 99.[address] Harvinder Mendoza DO Work Phone: [facility] 09-06-2024 11:34-0400 Diastolic blood pressure 81 mm[Hg] Dr. Harvinder Mendoza DO Work Phone: [facility] 09-06-2024 11:34-0400 Heart rate 75 /min Dr. Harvinder Mendoza DO Work Phone: [facility] 09-06-2024 11:34-0400 Respiratory rate 16 /min Dr. Harvinder Mendoza DO Work Phone: [facility] 09-06-2024 11:34-0400 SaO2% (BldA) [Mass fraction] 98 % Dr. Harvinder Mendoza DO Work Phone: [facility] 09-06-2024 11:34-0400 Systolic blood pressure 145 mm[Hg] Dr. Harvinder Mendoza DO Work Phone: [facility] 08-26-2024 12:15-0400 Body height 185.4 cm Ollie Johnson LOSS PREVENTION ANALYST-MATERIAL CONTROL MANAGER Work Phone: [facility] 08-26-2024 12:15-0400 Body mass index (BMI) [Ratio] 28.37 kg/m2 Ollie Johnson LOSS PREVENTION ANALYST-MATERIAL CONTROL MANAGER Work Phone: 4(881)360-509895 [address] 08-26-2024 12:15-0400 Body temperature 98.4 [degF] Ollie Mejiata LOSS PREVENTION ANALYST-MATERIAL CONTROL MANAGER Work Phone: 5(635)[phone] [place] [address] 08-26-2024 12:15-0400 Body weight 97.52 kg Ollie Mejiata LOSS PREVENTION ANALYST-MATERIAL CONTROL MANAGER Work Phone: [facility] 08-26-2024 12:15-0400 Diastolic blood pressure 79 mm[Hg] Ollie Johnson LOSS PREVENTION ANALYST-MATERIAL CONTROL MANAGER Work Phone: [facility] 08-26-2024 12:15-0400 Heart rate 89 /min Ollie Johnson LOSS PREVENTION ANALYST-MATERIAL CONTROL MANAGER Work Phone: [facility] 08-26-2024 12:15-0400 Respiratory rate 18 /min Ollie Mejiata LOSS PREVENTION ANALYST-MATERIAL CONTROL MANAGER Work Phone: [facility] 08-26-2024 12:15-0400 SaO2% (BldA) [Mass fraction] 98 % Ollie Johnson LOSS PREVENTION ANALYST-MATERIAL CONTROL MANAGER Work Phone: [facility] 08-26-2024 12:15-0400 Systolic blood pressure 156 mm[Hg] Ollie Johnson LOSS PREVENTION ANALYST-MATERIAL CONTROL MANAGER Work Phone: [facility] 08-22-2024 14:26-0400 Diastolic blood pressure 79 mm[Hg] Harvinder Reji DO Work Phone: [facility] 08-22-2024 14:26-0400 Systolic blood pressure 125 mm[Hg] Harvinder Reji DO Work Phone: [facility] 08-22-2024 14:24-0400 Body height 185.4 cm Harvinder Reji DO Work Phone: [facility] 08-22-2024 14:24-0400 Body mass index (BMI) [Ratio] 29.03 kg/m2 Harvinder Reji DO Work Phone: [facility] 08-22-2024 14:24-0400 Body temperature 97.9 [degF] Harvinder Reji DO Work Phone: [facility] 08-22-2024 14:24-0400 Body weight 99.79 kg Harvinder Reji DO Work Phone: [facility] 08-22-2024 14:24-0400 Heart rate 72 /min Harvinder Reji DO Work Phone: [facility] 08-22-2024 14:24-0400 Respiratory rate 16 /min Harvinder Reji DO Work Phone: [facility] 08-22-2024 14:24-0400 SaO2% (BldA) [Mass fraction] 94 % Harvinder Reji DO Work Phone: [facility] 08-12-2024 10:02-0400 Body temperature 97.3 [degF] Dr. Harvinder Mendoza DO Work Phone: [facility] 08-12-2024 10:02-0400 Body weight 99.[address] Harvinder Mendoza DO Work Phone: [facility] 08-12-2024 10:02-0400 Diastolic blood pressure 82 mm[Hg] Dr. Harvinder Mendoza DO Work Phone: [facility] 08-12-2024 10:02-0400 Heart rate 72 /min Dr. Harvinder Mendoza DO Work Phone: [facility] 08-12-2024 10:02-0400 Respiratory rate 16 /min Dr. Harvinder Mendoza DO Work Phone: [facility] 08-12-2024 10:02-0400 SaO2% (BldA) [Mass fraction] 98 % Dr. Harvinder Mendoza DO Work Phone: 8(440)[phone] [address] 08-12-2024 10:02-0400 Systolic blood pressure 137 mm[Hg] Dr. Harvinder Mendoza DO Work Phone: 1(799)[phone] [place] [address] 06-29-2024 13:16-0500 Body temperature 97.4 [degF] Dr. Harvinder Mendoza DO Work Phone: 0(672)052-097673 [place] [address] 06-29-2024 13:16-0500 Body weight 97.[address] Harvinder Mendoza DO Work Phone: 8(289)[phone] [address] 06-29-2024 13:16-0500 Diastolic blood pressure 88 mm[Hg] Dr. Harvinder Menodza DO Work Phone: 0(879)698-693906 [address] 06-29-2024 13:16-0500 Heart rate 76 /min Dr. Harvinder Mendoza DO Work Phone: 6(384)[phone] [address] 06-29-2024 13:16-0500 Respiratory rate 16 /min Dr. Harvinder Mendoza DO Work Phone: 2(083)362-393906 [address] 06-29-2024 13:16-0500 SaO2% (BldA) [Mass fraction] 99 % Dr. Harvinder Mendoza DO Work Phone: 1(704)796-776227 [place] [address] 06-29-2024 13:16-0500 Systolic blood pressure 145 mm[Hg] Dr. Harvinder Mendoza DO Work Phone: 2(916)[phone] [address] 05-30-2024 08:02-0500 Diastolic blood pressure 84 mm[Hg] Harvinder Reji DO Work Phone: [facility] 05-30-2024 08:02-0500 Systolic blood pressure 134 mm[Hg] Harvinder Reji DO Work Phone: [facility] 05-30-2024 07:51-0500 Body height 185.4 cm Harvinder Reji DO Work Phone: [facility] 05-30-2024 07:51-0500 Body mass index (BMI) [Ratio] 28.09 kg/m2 Harvinder Reji DO Work Phone: [facility] 05-30-2024 07:51-0500 Body temperature 98.01 [degF] Harvinder Reji DO Work Phone: [facility] 05-30-2024 07:51-0500 Body weight 96.57 kg Harvinder Reji DO Work Phone: [facility] 05-30-2024 07:51-0500 Heart rate 70 /min Harvinder Reji DO Work Phone: [facility] 05-30-2024 07:51-0500 Respiratory rate 16 /min Harvinder Reji DO Work Phone: [facility] 05-30-2024 07:51-0500 SaO2% (BldA) [Mass fraction] 98 % Harvinder Reji DO Work Phone: [facility] 04-18-2024 15:06-0500 Body height 182.9 cm Sana Rodanthe DO Work Phone: [facility] 04-18-2024 15:06-0500 Body mass index (BMI) [Ratio] 28.07 kg/m2 Sana Rodanthe DO Work Phone: [facility] 04-18-2024 15:06-0500 Body weight 93.89 kg Sana Rodanthe DO Work Phone: [facility] 04-18-2024 15:06-0500 Diastolic blood pressure 80 mm[Hg] Sana Rodanthe DO Work Phone: [facility] 04-18-2024 15:06-0500 Heart rate 74 /min Sana Rodanthe DO Work Phone: [facility] 04-18-2024 15:06-0500 SaO2% (BldA) [Mass fraction] 99 % Sana Rodanthe DO Work Phone: [facility] 04-18-2024 15:06-0500 Systolic blood pressure 124 mm[Hg] Sana Rodanthe DO Work Phone: [facility] 11-30-2023 12:59-0400 Body height 182.9 cm Sana Rodanthe DO Work Phone: [facility] 11-30-2023 12:59-0400 Body mass index (BMI) [Ratio] 28.48 kg/m2 Sana Rodanthe DO Work Phone: [facility] 11-30-2023 12:59-0400 Body weight 95.25 kg Sana Rodanthe DO Work Phone: [facility] 11-30-2023 12:59-0400 Diastolic blood pressure 80 mm[Hg] Sana Rodanthe DO Work Phone: [facility] 11-30-2023 12:59-0400 Heart rate 73 /min Sana Rodanthe DO Work Phone: [facility] 11-30-2023 12:59-0400 SaO2% (BldA) [Mass fraction] 97 % Sana Rodanthe DO Work Phone: [facility] 11-30-2023 12:59-0400 Systolic blood pressure 132 mm[Hg] Sana Rodanthe DO Work Phone: [facility] 10-19-2023 07:03-0400 Body height 182.9 cm Sana Rodanthe DO Work Phone: [facility] 10-19-2023 07:03-0400 Body mass index (BMI) [Ratio] 27.94 kg/m2 Sana Rodanthe DO Work Phone: [facility] 10-19-2023 07:03-0400 Body weight 93.44 kg Sana Rodanthe DO Work Phone: [facility] 10-19-2023 07:03-0400 Diastolic blood pressure 78 mm[Hg] Sana Rodanthe DO Work Phone: [facility] 10-19-2023 07:03-0400 Heart rate 80 /min Sana Rodanthe DO Work Phone: [facility] 10-19-2023 07:03-0400 SaO2% (BldA) [Mass fraction] 98 % Sana Rodanthe DO Work Phone: [facility] 10-19-2023 07:03-0400 Systolic blood pressure 130 mm[Hg] Sana Rodanthe DO Work Phone: [facility] 09-14-2023 07:07-0400 Body mass index (BMI) [Ratio] 28.35 kg/m2 Sana Rodanthe DO Work Phone: [facility] 09-14-2023 07:07-0400 Body weight 94.8 kg Sana Rodanthe DO Work Phone: [facility] 09-14-2023 07:07-0400 Diastolic blood pressure 72 mm[Hg] Sana Rodanthe DO Work Phone: [facility] 09-14-2023 07:07-0400 Heart rate 99 /min Sana Rodanthe DO Work Phone: [facility] 09-14-2023 07:07-0400 SaO2% (BldA) [Mass fraction] 99 % Sana Rodanthe DO Work Phone: [facility] 09-14-2023 07:07-0400 Systolic blood pressure 126 mm[Hg] Sana Rodanthe DO Work Phone: [facility] 08-17-2023 11:32-0400 Body height 182.9 cm Sana Rodanthe DO Work Phone: [facility] 08-17-2023 11:32-0400 Body mass index (BMI) [Ratio] 25.23 kg/m2 Sana Rodanthe DO Work Phone: [facility] 08-17-2023 11:32-0400 Body weight 84.37 kg Sana Rodanthe DO Work Phone: [facility] 08-17-2023 11:32-0400 Diastolic blood pressure 72 mm[Hg] Sana Rodanthe DO Work Phone: [facility] 08-17-2023 11:32-0400 Heart rate 76 /min Sana Rodanthe DO Work Phone: [facility] 08-17-2023 11:32-0400 SaO2% (BldA) [Mass fraction] 98 % Sana Rodanthe DO Work Phone: [facility] 08-17-2023 11:32-0400 Systolic blood pressure 124 mm[Hg] Sana Rodanthe DO Work Phone: [facility] 11-17-2022 08:02-0400 Body height 182.9 cm Sana Rodanthe DO Work Phone: [facility] 11-17-2022 08:02-0400 Body mass index (BMI) [Ratio] 25.23 kg/m2 Sana Rodanthe DO Work Phone: [facility] 11-17-2022 08:02-0400 Body weight 84.37 kg Sana Rodanthe DO Work Phone: [facility] 11-17-2022 08:02-0400 Diastolic blood pressure 80 mm[Hg] Sana Rodanthe DO Work Phone: [facility] 11-17-2022 08:02-0400 Heart rate 65 /min Sana Rodanthe DO Work Phone: [facility] 11-17-2022 08:02-0400 SaO2% (BldA) [Mass fraction] 99 % Sana Rodanthe DO Work Phone: [facility] 11-17-2022 08:02-0400 Systolic blood pressure 122 mm[Hg] Sana Dexter DO Work Phone: [facility] 11-10-2022 07:44-0400 Body mass index (BMI) [Ratio] 25.82 kg/m2 Sana S Rodanthe Work Phone: [facility]Fsovhmi-Yvmupiv Work Phone: 11-10-2022 07:44-0400 Body surface area Derived from formula 2.09 m2 Sana S Rodanthe Work Phone: YV-Swxhpow-Xxuyoyc Work Phone: 11-10-2022 07:44-0400 Body weight 86.36 kg Sana S Rodanthe Work Phone: XX-Hzynvqy-Qbetbuk Work Phone: 11-10-2022 07:44-0400 Diastolic blood pressure 82 mm[Hg] Sana S Rodanthe Work Phone: JK-Awbxwcj-Wgsgdfz Work Phone: 11-10-2022 07:44-0400 Heart rate 64 /min Sana S Rodanthe Work Phone: OS-Uyylcau-Lewwsha Work Phone: 11-10-2022 07:44-0400 Systolic blood pressure 144 mm[Hg] Sana S Rodanthe Work Phone: ZJ-Eeaowlo-Cjcyysf Work Phone: 05-13-2022 08:23-0500 Body height 182.88 cm Sana S Rodanthe Work Phone: [employer] Work Phone: 05-13-2022 08:23-0500 Body mass index (BMI) [Ratio] 29.35 kg/m2 Sana S Rodanthe Work Phone: [employer] Work Phone: 05-13-2022 08:23-0500 Body surface area Derived from formula 2.2 m2 Sana Dexter Work Phone: [email or web address] Work Phone: 05-13-2022 08:23-0500 Body weight 98.15 kg Sana Dexter Work Phone: [facility] Work Phone: 05-13-2022 08:23-0500 Diastolic blood pressure 69 mm[Hg] Sana Dexter Work Phone: [facility] Work Phone: 05-13-2022 08:23-0500 Heart rate 60 /min Sana Dexter Work Phone: [facility] Work Phone: 05-13-2022 08:23-0500 SaO2% (BldA) [Mass fraction] 98 % Sana Dexter Work Phone: [facility] Work Phone: 05-13-2022 08:23-0500 Systolic blood pressure 125 mm[Hg] Sana Dexter Work Phone: [facility] Work Phone: 11-11-2021 09:01-0400 Body height 182.88 cm Sana Dexter Work Phone: [facility] Work Phone: 11-11-2021 09:01-0400 Body mass index (BMI) [Ratio] 28.55 kg/m2 Sana Dexter Work Phone: [facility] Work Phone: 11-11-2021 09:01-0400 Body surface area Derived from formula 2.18 m2 Sana Hernández Rodanthe Work Phone: [email or web address] Work Phone: 11-11-2021 09:01-0400 Body weight 95.48 kg Sana Dexter Work Phone: [facility] Work Phone: 11-11-2021 09:01-0400 Diastolic blood pressure 78 mm[Hg] Sana Dexter Work Phone: [facility] Work Phone: 11-11-2021 09:01-0400 Heart rate 68 /min Sana Dexter Work Phone: [facility] Work Phone: 11-11-2021 09:01-0400 SaO2% (BldA) [Mass fraction] 98 % Sana Dexter Work Phone: [facility] Work Phone: 11-11-2021 09:01-0400 Systolic blood pressure 138 mm[Hg] Sana Dexter Work Phone: [facility] Work Phone: 11-12-2020 08:43-0400 Body height 182.88 cm Sana Dexter Work Phone: [facility] Work Phone: 11-12-2020 08:43-0400 Body mass index (BMI) [Ratio] 28.91 kg/m2 Sana Dexter Work Phone: [facility] Work Phone: 11-12-2020 08:43-0400 Body surface area Derived from formula 2.19 m2 Sana Dexter Work Phone: [facility] Work Phone: 11-12-2020 08:43-0400 Body temperature 97.2 [degF] [facility]ana Dexter Work Phone: [facility] [facility] Work Phone: 11-12-2020 08:43-0400 Body weight 96.68 kg Sana Dexter Work Phone: [employer] [employer] Work Phone: 11-12-2020 08:43-0400 Diastolic blood pressure 72 mm[Hg] Sana Dexter Work Phone: [facility] Work Phone: 11-12-2020 08:43-0400 Heart rate 76 /min Sana Dexter Work Phone: [facility] [facility] Work Phone: 11-12-2020 08:43-0400 SaO2% (BldA) [Mass fraction] 98 % Sana Dexter Work Phone: [facility] Work Phone: 11-12-2020 08:43-0400 Systolic blood pressure 136 mm[Hg] Sana Dexter Work Phone: [facility] Work Phone: 11-28-2019 11:19-0400 BMI (Body Mass Index) 28.6 kg/m2 [facility] [employer] Work Phone: 11-28-2019 11:19-0400 Body Temperature 97.7 [degF] [facility] [employer] Work Phone: 11-28-2019 11:19-0400 Body weight 95.66 kg [facility] [employer] Work Phone: 11-28-2019 11:19-0400 BP Diastolic 82 mm[Hg] [facility] [employer] Work Phone: Comment on above: Location: [place]; Position: Sitting 11-28-2019 11:19-0400 BP Systolic 142 mm[Hg] [facility] [employer] Work Phone: Comment on above: Location: LUE; Position: Sitting 11-28-2019 11:190400 BSA (Body Surface Area) 2.18 m2 [facility] [employer] Work Phone: 11-28-2019 11:190400 Height 182.88 cm [facility] [employer] Work Phone: 11-28-2019 11:19-0400 Pulse (Heart Rate) 75 /min [facility] [employer] Work Phone: 11-28-2019 11:190400 Pulse Oximetry 98 % [facility] [employer] Work Phone: 11-14-2019 10:04-0400 BMI (Body Mass Index) 28.41 kg/m2 [facility] Work Phone: 11-14-2019 10:04-0400 Body Temperature 95.5 [degF] [facility] Work Phone: Comment on above: Method: Temporal 11-14-2019 10:04-0400 Body weight 95 kg [facility] Work Phone: 11-14-2019 10:04-0400 BP Diastolic 78 mm[Hg] [facility] Work Phone: Comment on above: Location: LUE; 11-14-2019 10:04-0400 BP Systolic 140 mm[Hg] [facility] Work Phone: Comment on above: Location: LUE; 11-14-2019 10:04-0400 BSA (Body Surface Area) 2.17 m2 [facility] Work Phone: 11-14-2019 10:04-0400 Height 182.88 cm [facility] Work Phone: 11-14-2019 10:04-0400 Pulse (Heart Rate) 79 /min [facility] Work Phone: 11-14-2019 10: Pulse Oximetry 97 % [facility] Work Phone: Encounters Encounter Date Encounter Type Care Provider Facility Start: 12-08-2024 ambulatory [facility] Facility:[facility] Start: 11-09-2024 ambulatory Lizbeth Guevara Facility:[facility] Start: 09-28-2024 Non-patient / Non-visit Dr. Jose Alejandro bauman MD -[facility] Start: 09-28-2024 End: 09-28-[address] Harvinder Mendoza DO Work Phone: [facility] Work Phone: Start: 09-28-2024 End: 09-28-2024 Patient encounter procedure Lizbeth Guevara [facility] Work Phone: Start: 09-28-2024 End: 09-28-2024 ambulatory Lizbeth Guevara Facility:[facility] Start: 09-06-2024 End: 09-06-2024 Patient encounter procedure Lizbeth Guevara [facility] Work Phone: Start: 09-06-2024 End: 09-06-2024 ambulatory Harvinder Mendoza Facility:[facility] Start: 08-26-2024 End: 08-26-2024 Patient encounter procedure Ollie Johnson LOSS PREVENTION ANALYST-MATERIAL CONTROL MANAGER Work Phone: [facility] Comment on above: Acute bronchitis, un specified organism (Primary Dx) Start: 08-26-2024 End: 08-26-2024 ambulatory [facility] Start: 08-22-2024 End: 08-22-2024 Office outpatient visit 25 minutes Harvinder Mendoza DO Work Phone: [facility] Comment on above: Gastroesophageal ref lux disease, unspecified whether esophagitis present (Primary Dx); Subacute cough Start: 08-22-2024 End: 08-22-2024 ambulatory HARVINDER MENDOZA [facility] Start: 08-12-2024 Non-patient / Non-visit Dr. Jose Alejandro bauman MD -[facility] Start: 08-12-2024 End: 08-12-2024 Patient encounter procedure Lizbeth ESTRELLA [facility] Work Phone: Start: 08-12-2024 End: 08-12-[address] Harvinder Mendoza DO Work Phone: [facility] Work Phone: Start: 08-12-2024 End: 08-12-2024 ambulatory Harvinder Mendoza Facility:[facility] Start: 07-25-2024 Non-patient / Non-visit Dr. Jose Alejandro bauman MD -[facility] Start: 07-25-2024 End: 07-25-[address] Harvinder Mendoza DO Work Phone: [facility] Work Phone: Start: 07-25-2024 End: 07-25-2024 Patient encounter procedure Lizbeth ESTRELLA [facility] Work Phone: Start: 07-25-2024 End: 07-25-2024 ambulatory Lizbeth Guevara Facility:[facility] Start: 06-29-2024 End: 06-29-2024 Patient encounter procedure Lizbeth ESTRELLA [facility] Work Phone: Start: 06-29-2024 End: 06-29-2024 ambulatory Lizbeth Guevara Facility:[facility] Start: 06-09-2024 End: 06-09-2024 ambulatory HARVINDER MENDOZA [facility] Start: 05-30-2024 End: 05-30-2024 Office outpatient new 45 minutes Harvinder Mendoza DO Work Phone: [facility] Comment on above: Primary hypertension (Primary Dx); Mixed hyperlipidemia; Alopecia totalis; Overweight (BMI 25.0-29.9); Screening for metabolic disorder; Screening for prostate cancer; Abnormal finding of blood chemistry, unspecified; Vitamin B12 deficiency; Screening for AAA (abdominal aortic aneurysm) Start: 05-30-2024 End: 05-30-2024 ambulatory HARVINDER MENDOZA [facility] Start: 04-18-2024 End: 04-18-2024 Office outpatient visit 15 minutes Sana S Rodanthe DO Work Phone: [facility] Comment on above: Statin myopathy (Ghada edy Dx); Elevated CPK; Screening for prostate cancer; Hyperlipidemia LDL goal <100 Start: 04-18-2024 End: 04-18-2024 ambulatory [facility] Ambulatory Start: 04-11-2024 End: 04-11-2024 ambulatory [facility] Start: 01-04-2024 End: 01-04-2024 ambulatory [facility] Start: 12-21-2023 End: 12-21-2023 ambulatory [facility] Start: 12-14-2023 End: 12-14-2023 ambulatory [facility] Start: 12-07-2023 End: 12-07-2023 ambulatory [facility] Start: 11-30-2023 End: 11-30-2023 Office outpatient visit 15 minutes Sana S True[employer] DO Work Phone: [facility] Comment on above: Alcohol consumption heavy (Primary Dx); Elevated CPK Start: 11-30-2023 End: 11-30-2023 ambulatory [facility] Start: 11-30-2023 End: 11-30-2023 ambulatory [facility] Start: 11-23-2023 End: 11-23-2023 ambulatory [facility] Start: 11-18-2023 End: 11-18-2023 ambulatory [facility] Start: 11-16-2023 End: 11-16-2023 ambulatory [facility] Start: 11-09-2023 End: 11-09-2023 ambulatory [facility] Start: 11-02-2023 End: 11-02-2023 Office outpatient new 45 minutes Aleshia Elaine LOSS PREVENTION ANALYST-MATERIAL CONTROL MANAGER Work Phone: 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 Ambulatory Start: 10-19-2023 End: 10-19-2023 Subsequent hospital visit by physician Marco Stauffery100 X-Ray [facility] Comment on above: Chronic pain of both shoulders Neck pain, chronic; Chronic pain of both shoulders Start: 10-19-2023 End: 10-19-2023 Office outpatient visit 15 minutes Sana S Rodanthe DO Work Phone: [facility] [employer] Comment on above: Polyarthropathy (Ghada edy Dx); Neck pain, chronic; Chronic pain of both shoulders Start: 10-19-2023 End: 10-19-2023 ambulatory [facility] Start: 09-14-2023 End: 09-14-2023 Office outpatient visit 25 minutes Sana S Rodanthe DO Work Phone: [facility] [employer] Comment on above: Polyarthropathy (Ghada edy Dx); Other fatigue; Gastroesophageal reflux disease without esophagitis; Gluten intolerance Start: 09-14-2023 End: 09-14-2023 ambulatory [facility] Start: 08-17-2023 End: 08-17-2023 Office outpatient visit 15 minutes Sana S Rodanthe DO Work Phone: [facility] [employer] Comment on above: Medicare annual well ness visit, subsequent (Primary Dx); Hyperlipidemia LDL goal <100; Secondary hypertension; Hyperglycemia Start: 08-17-2023 End: 09-14-2023 Patient encounter procedure Sana S Rodanthe DO Work Phone: [facility] Work Phone: Start: 08-17-2023 End: 08-17-2023 ambulatory [facility] Amb[facility] Start: 08-17-2023 End: 08-17-2023 Encounter for general adult medical examination without abnormal findings SANA Edgar [facility] Ambulatory Start: 08-14-2023 End: 08-14-2023 ambulatory [place] [facility] Start: 11-17-2022 End: 11-17-2022 Office outpatient visit 25 minutes Sana Hernández DO Work Phone: [facility] Comment on above: Alopecia areata (Ghada edy Dx); Hyperglycemia; Secondary hypertension; Hyperlipidemia LDL goal <100 Start: 11-10-2022 Office outpatient ne w 45 minutes Sana S Rodanthe Work Phone: [facility] Work Phone: Start: 11-10-[address] [place] Facility:[id number] Start: 05-13-[address] Sana Dexter Facility:[id number] Start: 05-13-2022 Chart Update Sana Sanchez al Work Phone: [facility] Work Phone: Start: 04-18-2022 Rx Renewal Sana Sanchez al Work Phone: [facility] Work Phone: Start: 11-11-2021 Office outpatient vi sit 25 minutes Sana S Rodanthe Work Phone: [facility] Work Phone: Start: 11-05-2021 Chart Update Sana Hernández Daniel al Work Phone: [facility] Work Phone: Start: 10-21-2021 Rx Renewal Sana Hernández Daniel al Work Phone: [facility] Work Phone: Start: 05-09-2021 Chart Update Sana S Daniel al Work Phone: [facility] Work Phone: Start: 11-12-2020 EPV, Provider: Sana Dexter, Status: Pen, Time: 8:40 AM Sana Dexter Work Phone: -[facility] Work Phone: Start: 11-12-2020 Office outpatient vi sit 15 minutes Sana Dexter Work Phone: -[facility] Work Phone: Start: 11-12-2020 Chart Update Sana orellana Work Phone: -[facility] Work Phone: Start: 10-28-2020 Rx Renewal Sana orellana Work Phone: -[facility] Work Phone: Start: 12-30-2019 Patient encounter procedure Avirup G [facility] LI-Vpcjgsfseh-Nirsfbc [address] [place] Work Phone: Start: 12-22-2019 [facility] [address] [place] Work Phone: Start: 11-28-2019 Patient encounter procedure Melvinap G [facility] [employer] Work Phone: Start: 11-21-2019 Patient encounter procedure Sana Dexter -[facility] Work Phone: Start: 11-14-2019 Patient encounter procedure Sana Dexter -[facility] Work Phone: Start: 07-19-2019 Patient encounter procedure Sana Dexter -[facility] Work Phone: Start: 05-15-2017 End: 05-16-2017 Ambulatory Sana Edgar Facility:[facility] Start: 05-04-2017 End: 05-05-2017 Ambulatory Sana Edgar [facility] Patient encounter procedure Ubaldo rebeccakeeley Edgar Work Phone: -[facility] Work Phone: Patient encounter status Suzanne Dexter Work Phone: [facility] Work Phone: Procedures Date Procedure Procedure Detail Performing Clinician Start: 04-11-2024 Lipid 1996 panel - S griselda or Plasma Sana Rodanthe DO Work Phone: Start: 09-14-2023 JOSE WITHOUT REFLEX VINH SANA ROYAL Start: 09-14-2023 C-reactive protein KIMB ERLY ROYAL Start: 09-14-2023 CBC W Auto Different ial panel - Blood SANA ROYAL Start: 09-14-2023 Creatine kinase [Enz ymatic activity/volume] in Serum or Plasma SANA ROYAL Start: 09-14-2023 LYME DISEASE (BORREL IA BURGDORFERI), PCR SANA ROYAL Start: 09-14-2023 RHEUMATOID FACTOR KIMBE RLY ROYAL Start: 09-14-2023 SEDIMENTATION RATE, AUTOMATED SANA ROYAL Start: 08-14-2023 Basic metabolic 2000 panel - Serum or Plasma SANA ROYAL Start: 08-14-2023 Hemoglobin A1c/Hemoglobin.total in Blood SANA ROYAL Start: 08-14-2023 PROSTATE SPECIFIC ANTIGEN SANA ROYAL Start: 11-08-2022 Lipid 1996 panel - S griselda or Plasma Sana Rodanthe DO Work Phone: Start: 12-22-2019 Echocardiography Avirup Rocky Start: 12-09-2019 Echocardiography Avirup Rocky Start: 11-28-2019 Basic metabolic 1998 panel - Serum or Plasma Avirup Rocky Start: 11-28-2019 Cta hrt cornry art/b ypass grfts contrst 3d post Avirup Rocky Start: 11-28-2019 Sleep std airflow hr t rate&o2 sat effort unatt Avirup Rocky Start: 11-17-2019 Syngo Nuclear Order Ynes yoliely Rodanthe Start: 11-14-2019 NM Cardiac Stress/Re st Nuclear Med Order Sana Rodanthe Start: 10-24-2019 End: 10-24-2019 Colonoscopy Sana Rodanthe Colonoscopy Sana Rodanthe Comment on above: 10/2019; Plan of Treatment Date Care Activity Detail Author Start: 10-23-2029 Screening for malign ant neoplasm of colon [facility] Start: 2029 Respiratory Syncytia l Virus Immunization: Risk, 60-74 Risk, or 75+ (1 - 1-dose 75+ series) Respiratory Syncytial Virus Immunization: Risk, 60-74 Risk, or 75+ (1 - 1-dose 75+ series) [facility] Start: 04-11-2029 Lipid panel Lipid Panel [facility] Start: 11-09-2027 Lipid panel Lipid Panel [facility] Start: 08-13-2026 Diabetes mellitus screening Diabetes Screening [facility] Start: 11-08-2025 Diabetes mellitus screening Diabetes Screening [facility] Start: 05-30-2025 Depression screening using PHQ-9 (Patient Health Questionnaire 9) score Depression Screening/Follow-Up (PHQ-2/9) [facility] Start: 11-21-2024 End: 11-21-2024 Patient encounter procedure 11/21/2024 8:40 AM EDT Office Visit [facility] [address] [place] [address] Harvinder Mendoza DO [address] [address] [facility] Start: 09-05-2024 End: 09-05-2024 Patient encounter procedure 09/05/2024 9:00 AM EDT Office Visit [address] [phone] Sana Dexter DO [address] [place] [id number] [facility] Start: 08-31-2024 End: 04-18-2025 Creatine kinase [Enzymatic activity/volume] in Serum or Plasma CK Lab Routine Elevated CPK Expected: 08/31/2024 (Approximate), Expires: 04/18/2025 [facility] Work Phone: Comment on above: Expected: 08/31/2024 (Approximate), Expires: 04/18/2025 Start: 08-31-2024 End: 04-18-2025 Hepatic function 2000 panel - Serum or Plasma Hepatic Function Panel Lab Routine Hyperlipidemia LDL goal <100 Expected: 08/31/2024 (Approximate), Expires: 04/18/2025 [facility] Work Phone: Comment on above: Expected: 08/31/2024 (Approximate), Expires: 04/18/2025 Start: 08-31-2024 End: 04-18-2025 Lipid 1996 panel - Serum or Plasma Lipid Panel Lab Routine Hyperlipidemia LDL goal <100 Expected: 08/31/2024 (Approximate), Expires: 04/18/2025 [facility] Service Area Work Phone: Comment on above: Expected: 08/31/2024 (Approximate), Expires: 04/18/2025 Start: 08-31-2024 End: 04-18-2025 Prostate specific Ag [Mass/volume] in Serum or Plasma Prostate Spec.Ag,Screen Lab Routine Screening for prostate cancer Expected: 08/31/2024 (Approximate), Expires: 04/18/2025 [facility] Work Phone: Comment on above: Expected: 08/31/2024 (Approximate), Expires: 04/18/2025 Start: 08-28-2024 End: 05-30-2025 Cobalamin (Vitamin B12) [Mass/volume] in Serum or Plasma Vitamin B12 Lab Routine Vitamin B12 deficiency Expected: 08/28/2024 (Approximate), Expires: 05/30/2025 [facility] Comment on above: Expected: 08/28/2024 (Approximate), Expires: 05/30/2025 Start: 08-28-2024 End: 05-30-2025 Complete blood count with white cell differential, manual CBC and Differential Lab Routine Alopecia totalis Expected: 08/28/2024 (Approximate), Expires: 05/30/2025 [facility] Comment on above: Expected: 08/28/2024 (Approximate), Expires: 05/30/2025 Start: 08-28-2024 End: 05-30-2025 Comprehensive metabolic 2000 panel - Serum or Plasma Comprehensive Metabolic Panel Lab Routine Alopecia totalis Expected: 08/28/2024 (Approximate), Expires: 05/30/2025 [facility] Comment on above: Expected: 08/28/2024 (Approximate), Expires: 05/30/2025 Start: 08-28-2024 End: 05-30-2025 Hemoglobin A1c/Hemoglobin.total in Blood Hemoglobin A1c Lab Routine Overweight (BMI 25.0-29.9) Screening for metabolic disorder Abnormal finding of blood chemistry, unspecified Expected: 08/28/2024 (Approximate), Expires: 05/30/2025 [facility] Comment on above: Expected: 08/28/2024 (Approximate), Expires: 05/30/2025 Start: 08-28-2024 End: 05-30-2025 Prostate specific Ag [Mass/volume] in Serum or Plasma PSA, Screen Lab Routine Screening for prostate cancer Expected: 08/28/2024 (Approximate), Expires: 05/30/2025 [facility] Comment on above: Expected: 08/28/2024 (Approximate), Expires: 05/30/2025 Start: 08-28-2024 End: 05-30-2025 Thyrotropin [Units/volume] in Serum or Plasma TSH with Reflex Free T4 Lab Routine Alopecia totalis Screening for metabolic disorder Expected: 08/28/2024 (Approximate), Expires: 05/30/2025 [facility] Comment on above: Expected: 08/28/2024 (Approximate), Expires: 05/30/2025 Start: 08-17-2024 Medicare Annual Well ness Visit Medicare Annual Wellness Visit (AWV) [facility] Start: 06-09-2024 End: 06-09-2024 Patient encounter procedure 06/09/2024 8:00 AM EST Appointment [facility] [address] 3rd [place] [address] Harvinder Mendoza, DO [address] [place] [address] [facility] Start: 02-29-2024 End: 02-29-2024 Patient encounter procedure [facility] Start: 02-16-2024 End: 08-16-2024 Basic metabolic 2000 panel - Serum or Plasma Basic Metabolic Panel Lab Routine Secondary hypertension Expected: 02/16/2024 (Approximate), Expires: 08/16/2024 [facility] Service Area Work Phone: Comment on above: Expected: 02/16/2024 (Approximate), Expires: 08/16/2024 Start: 02-16-2024 End: 08-16-2024 Lipid 1996 panel - Serum or Plasma Lipid Panel Lab Routine Hyperlipidemia LDL goal <100 Expected: 02/16/2024 (Approximate), Expires: 08/16/2024 [facility] Work Phone: Comment on above: Expected: 02/16/2024 (Approximate), Expires: 08/16/2024 Start: 01-25-2024 End: 11-29-2024 Creatine kinase [Enzymatic activity/volume] in Serum or Plasma CK Lab Routine Elevated CPK Expected: 01/25/2024 (Approximate), Expires: 11/29/2024 [facility] Work Phone: Comment on above: Expected: 01/25/2024 (Approximate), Expires: 11/29/2024 Start: 01-17-2024 COVID-19 Vaccine ( season) COVID-19 Vaccine ( season) [facility] Start: 01-17-2024 COVID-19 Vaccine ( season) COVID-19 Vaccine ( season) [facility] Start: 01-17-2024 Influenza vaccination Influenza Vacc ine (#1) [facility] Start: 01-04-2024 End: 01-04-2024 ambulatory 01/04/2024 8:00 AM EDT Treatment [facility] [address] [place] [phone] Mervin Betancourt, PT [address] [facility] [place] [address] [facility] Start: 12-28-2023 End: 12-28-2023 ambulatory 12/28/2023 8:30 AM EDT Treatment [place] [id number] [place] [phone] Lizbeth Vieira, AQUATICS DIRECTOR [address] [place] [address] [facility] Start: 12-21-2023 End: 12-21-2023 ambulatory 12/21/2023 8:30 AM EDT Treatment [address] [address] Lizbeth Vieira, AQUATICS DIRECTOR [address] [place] [address] [facility] Start: 12-14-2023 End: 12-14-2023 ambulatory 12/14/2023 7:00 AM EDT Treatment [address] [address] Josef Collier, AQUATICS DIRECTOR [address] [place] [address] [facility] Start: 12-07-2023 End: 12-07-2023 ambulatory 12/07/2023 7:45 AM EDT Treatment [address] [address] Lizbeth Vieira, AQUATICS DIRECTOR [address] [place] [address] [facility] Start: 11-30-2023 End: 11-29-2024 Cobalamin (Vitamin B12) [Mass/volume] in Serum or Plasma Vitamin B12 Lab Routine Elevated CPK Expected: 11/30/2023 (Approximate), Expires: 11/29/2024 [facility] Work Phone: Comment on above: Expected: 11/30/2023 (Approximate), Expires: 11/29/2024 Start: 11-30-2023 End: 11-29-2024 Phosphate [Mass/volume] in Serum or Plasma Phosphorus Lab Routine Elevated CPK Expected: 11/30/2023 (Approximate), Expires: 11/29/2024 [facility] Service Area Work Phone: Comment on above: Expected: 11/30/2023 (Approximate), Expires: 11/29/2024 Start: 11-30-2023 End: 11-30-2023 ambulatory 11/30/2023 1:40 PM EDT Lab [facility] [address] [place] [address] Arrived [facility] Comment on above: Arrived Start: 11-09-2023 End: 11-09-2023 ambulatory 11/09/2023 10:15 AM EDT Evaluation [facility] [address] [place] [address] Mervin Betancourt, PT [address] [facility] [place] [address] [facility] Start: 11-02-2023 End: 11-02-2023 Patient encounter procedure 11/02/2023 8:45 AM EDT Office Visit [facility] [address] [place] [phone] Aleshia Elaine, LOSS PREVENTION ANALYST-MATERIAL CONTROL MANAGER [address] [facility] [place], [address] [place] [address] [facility] Start: 10-19-2023 End: 10-18-2024 Creatine kinase [Enzymatic activity/volume] in Serum or Plasma CK Lab Routine Polyarthropathy Expected: 10/19/2023 (Approximate), Expires: 10/18/2024 [facility] Service Area Work Phone: Comment on above: Expected: 10/19/2023 (Approximate), Expires: 10/18/2024 Start: 10-19-2023 End: 10-18-2024 XR Cervical spine 2 or 3 Views [facility] Work Phone: Comment on above: Expected: 10/19/2023 (Approximate), Expires: 10/18/2024 Once for 1 Occurrenc es starting 10/19/2023 until 10/19/2023 Start: 10-19-2023 End: 10-18-2024 XR Shoulder - left 2 Views [facility] Work Phone: Comment on above: Expected: 10/19/2023 (Approximate), Expires: 10/18/2024 Once for 1 Occurrenc es starting 10/19/2023 until 10/19/2023 Start: 10-19-2023 End: 10-18-2024 XR Shoulder - right 2 Views [facility] Work Phone: Comment on above: Expected: 10/19/2023 (Approximate), Expires: 10/18/2024 Once for 1 Occurrenc es starting 10/19/2023 until 10/19/2023 Start: 09-14-2023 End: 09-13-2024 Borrelia burgdorferi DNA [Presence] in Unspecified specimen by ANDRES with probe detection Lyme disease, PCR Lab Routine Polyarthropathy Expected: 09/14/2023 (Approximate), Expires: 09/13/2024 [facility] Work Phone: Comment on above: Expected: 09/14/2023 (Approximate), Expires: 09/13/2024 Start: 09-14-2023 End: 09-13-2024 C reactive protein [Mass/volume] in Serum or Plasma C-reactive protein Lab Routine Polyarthropathy Expected: 09/14/2023 (Approximate), Expires: 09/13/2024 [facility] Work Phone: Comment on above: Expected: 09/14/2023 (Approximate), Expires: 09/13/2024 Start: 09-14-2023 End: 09-13-2024 CBC W Auto Differential panel - Blood CBC and Auto Differential Lab Routine Polyarthropathy Other fatigue Expected: 09/14/2023 (Approximate), Expires: 09/13/2024 [facility] Work Phone: Comment on above: Expected: 09/14/2023 (Approximate), Expires: 09/13/2024 Start: 09-14-2023 End: 09-13-2024 Creatine kinase [Enzymatic activity/volume] in Serum or Plasma CK Lab Routine Polyarthropathy Expected: 09/14/2023 (Approximate), Expires: 09/13/2024 [facility] Work Phone: Comment on above: Expected: 09/14/2023 (Approximate), Expires: 09/13/2024 Start: 09-14-2023 End: 09-13-2024 Erythrocyte sedimentation rate Sedimentation Rate Lab Routine Polyarthropathy Expected: 09/14/2023 (Approximate), Expires: 09/13/2024 [facility] Service Area Work Phone: Comment on above: Expected: 09/14/2023 (Approximate), Expires: 09/13/2024 Start: 09-14-2023 End: 09-13-2024 Nuclear Ab [Presence] in Serum by Hep2 substrate JOSE Lab Routine Polyarthropathy Expected: 09/14/2023 (Approximate), Expires: 09/13/2024 [facility] Work Phone: Comment on above: Expected: 09/14/2023 (Approximate), Expires: 09/13/2024 Start: 09-14-2023 End: 09-13-2024 Rheumatoid factor [Units/volume] in Serum by Nephelometry Rheumatoid factor Lab Routine Polyarthropathy Expected: 09/14/2023 (Approximate), Expires: 09/13/2024 [facility] Work Phone: Comment on above: Expected: 09/14/2023 (Approximate), Expires: 09/13/2024 Start: 05-20-2023 End: 11-18-2023 Basic metabolic 2000 panel - Serum or Plasma Basic Metabolic Panel Lab Routine Hyperglycemia Expected: 05/20/2023 (Approximate), Expires: 11/18/2023 [facility] Service Area Work Phone: Comment on above: Expected: 05/20/2023 (Approximate), Expires: 11/18/2023 Start: 05-20-2023 End: 11-18-2023 Hemoglobin A1c/Hemoglobin.total in Blood Hemoglobin A1C Lab Routine Hyperglycemia Expected: 05/20/2023 (Approximate), Expires: 11/18/2023 [facility] Work Phone: Comment on above: Expected: 05/20/2023 (Approximate), Expires: 11/18/2023 Start: 05-14-2023 Medicare Annual Well ness Visit Medicare Annual Wellness Visit (AWV) [facility] Start: 01-16-2023 COVID-19 Vaccine () COVID-19 Vaccine () [facility] Start: 01-16-2023 Influenza vaccination Influenza Vacc ine (#1) [facility] Start: 11-17-2022 End: 11-18-2023 Thyrotropin [Units/volume] in Serum or Plasma TSH Lab Routine Alopecia areata Expected: 11/17/2022 (Approximate), Expires: 11/18/2023 [facility] Work Phone: Comment on above: Expected: 11/17/2022 (Approximate), Expires: 11/18/2023 Start: 11-17-2022 EPV, Provider: Sana Dexter, Status: Pen, Time: 8:00 AM EPV, Provider: Sana Dexter, Status: Pen, Time: 8:00 AM [facility] Work Phone: Start: 05-13-2022 EPV, Provider: Sana Dexter, Status: Pen, Time: 8:20 AM EPV, Provider: Sana Dexter, Status: Pen, Time: 8:20 AM [facility] Work Phone: Start: 11-11-2021 EPV, Provider: Sana Dexter, Status: Pen, Time: 9:00 AM EPV, Provider: Sana Dexter, Status: Pen, Time: 9:00 AM [facility] Work Phone: Start: 05-15-2021 Patient encounter procedure MCRANNUAL, Provider: Sana Dexter, Status: Pen, Time: 9:00 AM [facility] Work Phone: Start: 05-14-2021 Pneumococcal vaccination Pneum ococcal Vaccine (2 of 2 - PCV) [facility] Start: 05-14-2021 Pneumococcal Vaccine : 65+ Years (2 - PCV) Pneumococcal Vaccine: 65+ Years (2 - PCV) [facility] Start: 05-14-2021 Pneumococcal Vaccine : 65+ Years (2 of 2 - PCV) Pneumococcal Vaccine: 65+ Years (2 of 2 - PCV) [facility] Start: 05-14-2021 Pneumococcal Vaccine : Age 50+ (2 of 2 - PCV) Pneumococcal Vaccine: Age 50+ (2 of 2 - PCV) [facility] Start: 05-13-2021 Patient encounter procedure MCRANNUAL, Provider: Sana Dexter, Status: Pen, Time: 3:20 PM [facility] Work Phone: Start: 11-16-2020 DTaP/Tdap/Td Vaccine s (2 - Td or Tdap) DTaP/Tdap/Td Vaccines (2 - Td or Tdap) [facility] Start: 11-16-2020 Tetanus vaccination Tetanus: Every 1 0yrs [facility] Start: 11-12-2020 EPV, Provider: Sana Dexter, Status: Pen, Time: 8:40 AM EPV, Provider: Sana Dexter, Status: Pen, Time: 8:40 AM [employer] Work Phone: Start: 12-22-2019 Cta hrt cornry art/bypass grfts contrst 3d post CT Angio Coronary Arteries with Heart Flow [facility] [employer] Work Phone: Start: 12-22-[address] [facility] [employer] Work Phone: Start: 11-28-2019 Sleep std airflow hr t rate&o2 sat effort unatt [facility]: Start: 11-21-2019 Syngo Nuclear Order [facility] [employer] Work Phone: Start: 08-30-2019 Fall risk assessment Falls Risk Asse ssment [facility] Start: 2014 Hepatitis B Vaccines (1 of 3 - Risk 3-dose series) Hepatitis B Vaccines (1 of 3 - Risk 3-dose series) [facility] Start: 2014 Respiratory Syncytia l Virus Immunization: Risk, 60-74 Risk, or 75+ (1 - Risk 60-74 years 1-dose series) Respiratory Syncytial Virus Immunization: Risk, 60-74 Risk, or 75+ (1 - Risk 60-74 years 1-dose series) [facility] Start: 2014 RSV High Risk: (Elde rly (60+) or Population) (1 - Risk 60-74 years 1-dose series) RSV High Risk: (Elderly (60+) or Population) (1 - Risk 60-74 years 1-dose series) [facility] Start: 2014 RSV patient s and/or patients aged 60+ years (1 - 1-dose 60+ series) RSV patients and/or patients aged 60+ years (1 - 1-dose 60+ series) [facility] Start: 2004 Screening for malign ant neoplasm of colon Flexible sigmoidoscopy [facility] Start: 2004 Zoster Vaccines (1 of 2) Zoste r Vaccines (1 of 2) [facility] Start: 1972 Hepatitis C screening Hepatitis C Sc otoniel [facility] Start: 1957 Medicare Wellness Visit Medicare Wel lness Visit [facility] Start: 02-28-1955 COVID-19 Vaccine (#1) COVID-19 Vacci ne (#1) [facility] Start: 1954 Abdominal aortic aneurysm screening Abdominal Aortic Ultrasound [facility] Start: 1954 Medicare Annual Well ness Visit Medicare Annual Wellness Visit (AWV) [facility] Start: 1954 Prostate specific antigen measurement PSA Level [facility] Start: 1954 Screening for malign ant neoplasm of colon [facility] End: 07-28-2025 Ultrasound abd aortic aneurysm screen Ultrasound abd aortic aneurysm screen Imaging Routine Screening for AAA (abdominal aortic aneurysm) 1 Occurrences starting 05/30/2024 until 07/28/2025 [facility] Work Phone: Comment on above: 1 Occurrences starti ng 05/30/2024 until 07/28/2025 .doppler [facility] Work [facility]: NEGATED: Highlighted row has been ruled out! Planned Goals not documented [employer] Work Phone: Immunizations Immunization Date Immunization Notes Care Provider Dipika dougherty 02-16-2023 Flu vaccine, quadrivalent, high-dose, preservative free, age 65y+ (FLUZONE) Widdle DO Work Phone: [facility] Work Phone: 02-16-2023 influenza virus vacc ine, unspecified formulation Sana Rodanthe [employer] Work Phone: [facility] Work Phone: 02-11-2022 Fluzone High-Dose Quadrivalent 0.7 ML Intramuscular Suspension Prefilled Syringe [employer] Work Phone: [facility] Work Phone: 02-11-2022 influenza virus vacc ine, unspecified formulation Sana Rodanthe DO Work Phone: [facility] Work Phone: 11-03-2021 zoster vaccine recombinant Sana S [employer] Work Phone: [facility] Work Phone: 08-24-2021 zoster vaccine recombinant Sana S [employer] Work Phone: [facility] Work Phone: 04-21-2021 Pfizer-[employer] [facility] COVI D-19 Vacc 30 MCG/0.3ML Intramuscular Suspension Sana S [employer] Work Phone: [email or web address] Work Phone: 03-15-2021 influenza, seasonal, injectable [facility] S [employer] Work Phone: [facility] Work Phone: Comment on above: Series: 02-19-2021 Fluzone High-Dose Quadrivalent 0.7 ML Intramuscular Suspension Prefilled Syringe [employer] Work Phone: [facility] Work Phone: 08-13-2020 Pfizer-[employer] [facility] COVI D-19 Vacc 30 MCG/0.3ML Intramuscular Suspension Sana [employer] Work Phone: [facility] Work Phone: 07-23-2020 Pfizer-BioNTech COVI D-19 Vacc 30 MCG/0.3ML Intramuscular Suspension Sana [employer] Rodanthe Work Phone: [facility] Work Phone: 05-14-2020 pneumococcal polysaccharide vaccine, 23 valent [employer] Work Phone: [facility] Comment on above: Series: 03-15-2020 influenza, seasonal, injectable [employer] Work Phone: [facility] Work Phone: Comment on above: Series: 02-15-2019 influenza virus vacc ine, unspecified formulation [employer] Work Phone: [facility] Work Phone: Comment on above: Series: 02-15-2019 influenza, seasonal, injectable Sana [facility] Work Phone: 02-15-2017 influenza virus vacc ine, unspecified formulation; Translations: [influenza virus vaccine, unspecified formulation] [facility] Work Phone: Comment on above: Series: 12-12-2013 hepatitis A vaccine, adult dosage Sana Rodanthe DO Work Phone: [facility] 12-12-2013 hepatitis A vaccine, unspecified [facility] Work Phone: Comment on above: Series: 06-14-2013 hepatitis A vaccine, adult dosage Sana Dexter DO Work Phone: [facility] Work Phone: 06-14-2013 hepatitis A vaccine, unspecified formulation Sana Dexter [facility] Work Phone: Comment on above: Series: 11-16-2010 tetanus toxoid, redu tere diphtheria toxoid, and acellular pertussis vaccine, adsorbed Sana Dexter [facility] Work Phone: Comment on above: Series: Payers Date Payer Category Payer Self-pay 2019 Medicare [id number] 2019 Medicare supplementa l policy (as second payer) [id number] 2019 Private Health Insurance [employer] S UPPLEMENTAL AET[employer] SENIOR SUPPLEMENT [id number] 2019-Present [address] [place] [address] [id number] 2019 Medicare [id number] 2019 Private Health Insurance CLI [id number] 2017 Unknown 1954 Unknown [id number] [id number] 1954 Unknown [id number] 9.2.356 1954 Unknown [id number] 9.2.1245 1954 Unknown [id number] 9.2.1245 1954 Unknown [id number] 9.2.124 1954 Unknown [id number] 9.2.1244 1954 Unknown [id number] 9.2.1244 1954 Unknown [id number] 9.2.1244 1954 Unknown [id number] 9.2.1243 1954 Unknown [id number] 9.2.1243 1954 Unknown [id number] 2.16.840.1.282597.3.57 9.2.1243 1955 Unknown [id number] 2.16.840.1.747843.3.57 9.2.1243 1955 Unknown [id number] 2.16.840.1.411917.3.57 9.2.1243 1954 Unknown [id number] 2.16.840.1.064144.3.57 9.2.1243 1954 Unknown [id number] 2.16.840.1.197167.3.57 9.2. 1955 Unknown [id number] 2.16.840.1.279456.3.57 9.2.90 1954 Unknown [id number] 2.16.840.1.820427.3.57 9.2. 1954 Unknown [id number] 2.16.840.1.128008.3.57 9.2.124 1954 Unknown [id number] 2.16.840.1.911046.3.57 9.2.1242 1954 Unknown [id number] 2.16.840.1.859948.3.57 9.2.1243 1954 Unknown [id number] 2.16.840.1.789944.3.57 9.2.124 1954 Unknown [id number] 2.16.840.1.550582.3.57 9.2.1243 1954 Unknown [id number] 2.16.840.1.440585.3.57 9.2.124 1954 Unknown [id number] 2.16.840.1.483238.3.57 9.2.124 1954 Unknown [id number] 2.16.840.1.506823.3.57 9.2.124 1954 Unknown [id number] 2.16.840.1.497377.3.57 9.2.124 1954 Unknown [id number] 2.16.840.1.556982.3.57 9.2.124 1954 Unknown [id number] 2.16.840.1.366133.3.57 9.2.124 1954 Unknown [id number] 2.16.840.1.280396.3.57 9.2.1243 Unknown [id number] 2.16.840.1.744465.3.57 9.2.462 Unknown [id number] 2.16.840.1.809348.3.57 9.2.462 Unknown [id number] 2.16.840.1.802663.3.57 9.2.462 Unknown [id number] 2.16.840.1.881772.3.57 9.2.462 Unknown [id number] 2.16.840.1.568795.3.57 9.2.462 Unknown [id number] 2.16.840.1.626477.3.57 9.2.462 Unknown [id number] 2.16.840.1.652623.3.57 9.2.462 Unknown [id number] 2.16.840.1.454755.3.57 9.2.462 Unknown [id number] 2.16.840.1.691738.3.57 9.2.462 Unknown [id number] 2.16.840.1.019674.3.57 9.2.462 Unknown [id number] 2.16.840.1.660230.3.57 9.2.462 Unknown [id number] 2.16.840.1.437102.3.57 9.2.462 Social History Date Type Detail Facility Start: 11-17-2022 End: 08-17-2023 No advance directives No advance directives -[facility] Work Phone: Start: 11-17-2022 Tobacco smoking status NHIS Never smoked tobacco [facility] Work Phone: Start: 11-17-2022 End: 05-30-2024 Tobacco use and exposure Smokeless tobacco non-user [facility] Work Phone: Start: 11-17-2022 End: 08-26-2024 Alcohol intake Ex-drinker (finding) [facility] Work Phone: Start: 11-17-2022 End: 08-17-2023 Tobacco use panel [facility] Work Phone: Start: 1955 Sex Assigned At Not on file U [facility] Work Phone: Start: 11-07-2022 End: 08-26-2024 Exposure to SARS-CoV-2 (event) Not sure [facility] Start: 05-30-2024 End: 09-05-2024 Tobacco smoking status NHIS Ex-smoker [facility] Start: 05-18-1995 History of tobacco use Current smoker [facility] Start: 05-18-1995 History of tobacco use Cigarette Smoker [facility] Start: 06-03-2024 End: 08-22-2024 Alcoholic beverage intake Current drinker of alcohol (finding) [facility] Adult Depression Screening Assessment 0 [facility] Start: 05-30-2024 Alcohol Comment 2-3 beers/day on weekend days, 6-8 drinks/week [facility] Start: 05-26-2024 Gender identity Identifies as male gender (finding) [facility] Start: 05-26-2024 Sexual orientation Heterosexual (fin david) [facility] Start: 08-04-2024 End: 08-18-2024 Sex Male (finding) [facility] Start: 1955 Sex Assigned At Male W [facility] NEGATED: Highlighted row - - [facility] Work Phone: Functional Status Date Assessment Result Facility NEGATED: Highlighted row Functional performance Functional status health issues are not documented Disease [facility] Work Phone: Mental Status Date Assessment Result Facility NEGATED: Highlighted row Cognitive function [Interpretation] Cognitive status health issues are not documented Disease [facility] Work Phone: Clinical Notes 11-07-2022 to 08-26-2024 ALAN Shepherd - 08/26/2024 12:00 PM EDTPatient InstructionsAssessment & Plan Note - Harvinder Mendoza DO - 08/22/2024 3:30 PM EDTPatient Instructions Note Date & Type Note Facility 08-26-2024 History of Presen t illness Narrative [facility] ALAN Shepherd Visit Note - 08/26/2024 12:56 PM This note was generated with voice recognition software and may contain errors including spelling, grammar, syntax, and misrecognization of what was dictated. Patient: Nancie Sánchez, , 68 y.o., male PCP: Harvinder Mendoza DO ----- ALLERGIES: Allergies Allergen Reactions Penicillins Unknown CURRENT MEDICATIONS: Current Outpatient Medications Medication Instructions albuterol 90 mcg/actuation inhaler 1-2 puffs, inhalation, Every 4 hours PRN ascorbic acid (Vitamin C) 500 mg tablet 1 tablet, Daily aspirin 81 mg EC tablet 1 tablet, Daily azithromycin (Zithromax Z-Santosh) 250 mg tablet Take 2 tablets by mouth at once on day 1, then 1 tablet once a day on days 2-5. Take with a meal. benzonatate (TESSALON) 100-200 mg, oral, Every 8 hours PRN, Do not crush or chew. cyanocobalamin (VITAMIN B-12) 1,000 mcg, Daily diclofenac sodium (VOLTAREN) 2 g, Topical, 4 times daily PRN docosahexaenoic acid/epa (FISH OIL ORAL) Take by mouth. ezetimibe (ZETIA) 10 mg, oral, Daily lisinopril 20 mg, oral, Daily magnesium oxide 300 mg magnesium tablet 1 tablet, 3 times weekly predniSONE (Deltasone) 10 mg tablet Take 6 tabs PO daily x1 day, then take 5 tabs daily x1 day, then take 4 tabs daily x1 day, then take 3 tabs daily x1 day, then take 2 tabs daily x1 day, then take 1 tab daily x1 day. Take with a meal. vit A/vit C/vit E/zinc/copper (ICAPS AREDS ORAL) Take by mouth. 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 SOCIAL HX: reports that he has never smoked. He has never used smokeless tobacco. . ----- CHIEF COMPLAINT: Chief Complaint Patient presents with URI Cough, chest congestion, sore throat x 2 weeks worsening over last 5 days HISTORY OF PRESENT ILLNESS: The history was obtained from patient. Nancie is a 68 y.o. male, who presents with a chief complaint of a persistent cough/chest congestion (yellow phlegm), sore throat, and slight nasal congestion - sxs started 2-3 weeks ago. Has also had intermittent wheezing, mainly at night. Denies any fever/chills, body aches, ear pain, abdominal pain, chest pain, shortness of breath, rashes, urinary symptoms, nausea/vomiting, and diarrhea. Denies any lightheadedness or dizziness; no changes in mental status. No new swelling in legs (reports he wears compression stockings). Appetite is normal; is able to eat and drink fluids without difficulty; denies loss of sense of taste or smell. Reports symptoms initially seemed to be improving, but then seemed to get a lot worse again ~5 days ago . Has been taking Robitussin DM, Nyquil, and other OTC medications without much relief; no other crfd-lao-dzrudfs medications or home remedies for symptom management. His has been ill recently with similar sxs; no other known ill contacts. Has received the COVID vaccine x 2. Has received this season's influenza vaccine.. Last known COVID infection was >1 year ago. Is a former smoker - smoked for ~2 years. No known history of asthma/COPD/respiratory issues. REVIEW OF SYSTEMS: 10 systems reviewed negative with exception of history of present illness as listed above. TODAY'S VITALS: BP 156/79 (BP Location: Left arm, Patient Position: Sitting, BP Cuff Size: Large adult) Pulse 89 Temp 36.9 C (98.4 F) (Temporal) Resp 18 Ht 1.854 m (6' 1) Wt 97.5 kg (215 lb) SpO2 98% BMI 28.37 kg/m PHYSICAL EXAMINATION: General: Mildly ill-appearing, well nourished male; alert and oriented; in no acute distress. Sitting comfortably on exam chair. Non-dyspneic but having coughing fits during visit. Eyes: Pupils equal, round and reactive to light. No conjunctival erythema; no scleral icterus. HENT: No frontal or maxillary sinus tenderness; + mild audible nasal congestion. Airway patent, TMs and ear canals clear/unremarkable bilaterally. Nasal mucosa mildly injected and edematous. Oral mucosa moist. Posterior pharynx mildly injected but without lesions or oropharyngeal exudate. Uvula is midline. Managing oral secretions without difficulty. Neck: Supple. Mildly tender, mobile anterior cervical lymphadenopathy bilat. Trachea is midline. Respiratory: Respirations easy and unlabored, Breath sounds equal. Lungs are clear to auscultation; no wheezes, rhonchi, or rales; has good air movement throughout. + harsh, semi-productive cough noted. Non-dyspneic with ambulation; able to maintain SpO2. Cardiovascular: Normal rate, Regular rhythm. Normal S1S2. No m/r/g. No peripheral edema - wearing compression stockings. Gastrointestinal: Soft, non-tender, non-distended. Bowel sounds normoactive. Musculoskeletal: Grossly normal; appropriate for age. Integumentary: Dahlgren, warm, dry, and intact. No rashes or skin discoloration appreciated. Good skin turgor. Neurologic: Alert and oriented, no gross deficits. Cognition and Speech: Oriented, Speech clear and coherent. Psychiatric: Cooperative, Appropriate mood & affect. ----- Medical Decision Making LABORATORY or RADIOLOGICAL IMAGING ORDERS/RESULTS: None IMPRESSION/PLAN: Course: Worsening; stable 1. Acute bronchitis, unspecified organism (Primary) - azithromycin (Zithromax Z-Santosh) 250 mg tablet; Take 2 tablets by mouth at once on day 1, then 1 tablet once a day on days 2-5. Take with a meal. Dispense: 6 tablet; Refill: 0 - predniSONE (Deltasone) 10 mg tablet; Take 6 tabs PO daily x1 day, then take 5 tabs daily x1 day, then take 4 tabs daily x1 day, then take 3 tabs daily x1 day, then take 2 tabs daily x1 day, then take 1 tab daily x1 day. Take with a meal. Dispense: 21 tablet; Refill: 0 - albuterol 90 mcg/actuation inhaler; Inhale 1-2 puffs every 4 hours if needed for wheezing or shortness of breath. Dispense: 8.5 g; Refill: 0 - benzonatate (Tessalon) 100 mg capsule; Take 1-2 capsules (100-200 mg) by mouth every 8 hours if needed for cough. Do not crush or chew. Dispense: 40 capsule; Refill: 0 No red flags on exam today. Symptoms consistent with acute bronchitis, but reviewed other potential etiologies. Due to severity and duration of symptoms, will begin treatment with Zithromax and prednisone taper today; will also start cough medication (Benzonatate) and albuterol inhaler for PRN use. Instructed to push fluids, rest, and to use appropriate over the counter medications as needed for management of symptoms - plain Mucinex may be helpful. Reviewed instructions for self-isolation and continued monitoring. Reviewed red flags to monitor for, counseled on potential adverse reactions of treatments, expectations for improvement in sxs, and advised to follow-up with primary care provider in 2-3 days if symptoms persist, or to seek care sooner if worsening or if any additional concerns/red flags develop. Patient agreed with plan of care; questions were encouraged and answered. ALAN Shepherd Advanced Practice Provider [facility] documented in this encounter [facility] Work Phone: 08-26-2024 Instructions ALAN Shepherd - 08/26/2024 12:00 PM EDT - Start Zpak and Prednisone - take these with food. - Use albuterol inhaler and benzonatate as needed. - Start [id number] plain Mucinex (guaifenesin) to help loosen/thin phlegm. Increase fluids, rest, and follow up with your doctor if symptoms persist or worsen. documented in this encounter [facility] Work Phone: 08-22-2024 Evaluation + Plan note Associated Problem(s): Cough Cough for 3 weeks following viral infection. also currently sick with respiratory illness. DDx: Postnasal drip, postviral syndrome, GERD - Begin nightly Flonase or Nasacort - Begin nightly pantoprazole 20 mg with dinner - Monitor symptoms - Follow-up as needed [facility] 08-22-2024 Miscellaneous Notes Associated Problem(s): Cough Cough for 3 weeks following viral infection. also currently sick with respiratory illness. DDx: Postnasal drip, postviral syndrome, GERD - Begin nightly Flonase or Nasacort - Begin nightly pantoprazole 20 mg with dinner - Monitor symptoms - Follow-up as needed Associated Problem(s): Gastroesophageal reflux disease Start daily pantoprazole 20 mg. May take second 20 mg dose if needed. Recommended to take prior to dinner due to symptoms occurring during the night. - Follow-up as needed documented in this encounter [facility] 08-22-2024 Evaluation + Plan note Associated Problem(s): Gastroesophageal reflux disease Start daily pantoprazole 20 mg. May take second 20 mg dose if needed. Recommended to take prior to dinner due to symptoms occurring during the night. - Follow-up as needed [facility] 08-22-2024 Instructions Harvinder Mendoza DO - 08/22/2024 2:43 PM EDT You can try Flonase (fluticasone) nasal spray or Nasacort (triamcinolone). documented in this encounter [facility] 08-22-2024 Note Assessment/Plan: Gastroesophageal reflux disease Start daily pantoprazole 20 mg. May take second 20 mg dose if needed. Recommended to take prior to dinner due to symptoms occurring during the night. - Follow-up as needed Cough Cough for 3 weeks following viral infection. also currently sick with respiratory illness. DDx: Postnasal drip, postviral syndrome, GERD - Begin nightly Flonase or Nasacort - Begin nightly pantoprazole 20 mg with dinner - Monitor symptoms - Follow-up as needed Subjective: Nancie Sánchez is a 68 y.o. male Chief Complaint Patient presents with Cough Congestion Patient presents for acute visit. He reports having cough for 3 weeks. It is dry/nonproductive, feels like it is in his throat, and is improving. Denies fever, chills, sore throat, shortness of breath, chest pain. His is also ill with respiratory symptoms. He had been taking nyquil nightly, but not for the past 2 nights. Cough is worst when he lays down at night. He does admit to some GERD symptoms during the night, especially if he eats late. The following portions of the patient's history were reviewed and updated as appropriate: allergies, current medications, past family history, past medical history, past social history, past surgical history and problem list. Review of Systems Objective: PACU Vitals 08/22/24 1426 BP: 125/79 Pulse: Resp: Temp: SpO2: Physical Exam Constitutional: General: He is not in acute distress. Appearance: Normal appearance. He is not ill-appearing, toxic-appearing or diaphoretic. HENT: Head: Normocephalic and atraumatic. Cardiovascular: Rate and Rhythm: Normal rate and regular rhythm. Heart sounds: No murmur heard. No gallop. Pulmonary: Effort: Pulmonary effort is normal. No respiratory distress. Breath sounds: Normal breath sounds. No wheezing or rales. Skin: General: Skin is warm and dry. Coloration: Skin is not jaundiced or pale. Neurological: Mental Status: He is alert. Mental status is at baseline. Psychiatric: Mood and Affect: Mood normal. For any new medications prescribed today, patient was educated about indications for the medication, how to take the medication and potential side effects of the medications. My ongoing relationship with Nancie Sánchez requires continued responsibility and cognitive effort of being the focal point for all services related to chronic condition(s). Harvinder Mendoza DO AUTHENTICATED BY HARVINDER MENDOZA, ON 08/22/2024 15:31:16 [facility] 08-22-2024 History of Presen t illness Narrative Assessment/Plan: Gastroesophageal reflux disease Start daily pantoprazole 20 mg. May take second 20 mg dose if needed. Recommended to take prior to dinner due to symptoms occurring during the night. - Follow-up as needed Cough Cough for 3 weeks following viral infection. also currently sick with respiratory illness. DDx: Postnasal drip, postviral syndrome, GERD - Begin nightly Flonase or Nasacort - Begin nightly pantoprazole 20 mg with dinner - Monitor symptoms - Follow-up as needed Subjective: Nancie Sánchez is a 68 y.o. male Chief Complaint Patient presents with Cough Congestion Patient presents for acute visit. He reports having cough for 3 weeks. It is dry/nonproductive, feels like it is in his throat, and is improving. Denies fever, chills, sore throat, shortness of breath, chest pain. His is also ill with respiratory symptoms. He had been taking nyquil nightly, but not for the past 2 nights. Cough is worst when he lays down at night. He does admit to some GERD symptoms during the night, especially if he eats late. The following portions of the patient's history were reviewed and updated as appropriate: allergies, current medications, past family history, past medical history, past social history, past surgical history and problem list. Review of Systems Objective: PACU Vitals 08/22/24 1426 BP: 125/79 Pulse: Resp: Temp: SpO2: Physical Exam Constitutional: General: He is not in acute distress. Appearance: Normal appearance. He is not ill-appearing, toxic-appearing or diaphoretic. HENT: Head: Normocephalic and atraumatic. Cardiovascular: Rate and Rhythm: Normal rate and regular rhythm. Heart sounds: No murmur heard. No gallop. Pulmonary: Effort: Pulmonary effort is normal. No respiratory distress. Breath sounds: Normal breath sounds. No wheezing or rales. Skin: General: Skin is warm and dry. Coloration: Skin is not jaundiced or pale. Neurological: Mental Status: He is alert. Mental status is at baseline. Psychiatric: Mood and Affect: Mood normal. For any new medications prescribed today, patient was educated about indications for the medication, how to take the medication and potential side effects of the medications. My ongoing relationship with Nancie Sánchez requires continued responsibility and cognitive effort of being the focal point for all services related to chronic condition(s). Harvinder Mendoza DO documented in this encounter [facility] 06-29-2024 Evaluation note Diagnosis Onset Date Resolution Symptomatic varicose veins of both lower extremities acute June 29 025 1:05pm Venous insufficiency (chronic) (peripheral) chronic June 29, 2024 1:05pm [facility] Work Phone: 1(637) 246-941502-12-2025 Evaluation note* Diagnosis Onset Date Resolution Status Admit Date Symptomatic varicose veins o f both lower extremities acute June 29, 2024 1:05pm Venous insufficiency (chroni c) (peripheral) chronic June 29 025 1:05pm Acute superficial venous thrombosis of right lower extremity acute August 12, 2024 9:54am Venous insufficiency (chroni c) (peripheral) chronic August 12, 2024 9:54am [facility] Work Phone: 1(274) 644-993602-12-2025 Evaluation note* Diagnosis Onset Date Resolution Status Admit Date Symptomatic varicose veins o f both lower extremities acute June 29, 2024 1:05pm Venous insufficiency (chroni c) (peripheral) chronic June 29 025 1:05pm Acute superficial venous thrombosis of right lower extremity acute August 12, 2024 9:54am Venous insufficiency (chroni c) (peripheral) chronic August 12, 2024 9:54am Acute superficial venous thrombosis of right lower extremity acute September 06, 2024 11:15am Venous insufficiency (chroni c) (peripheral) chronic September 06, 2024 11:15am [facility] Work Phone: 1(144) 535-738202-12-2025 Evaluation note* Diagnosis Onset Date Resolution Status Admit Date Symptomatic varicose veins o f both lower extremities acute June 29, 2024 1:05pm Venous insufficiency (chroni c) (peripheral) chronic June 29 025 1:05pm Acute superficial venous thrombosis of right lower extremity acute August 12, 2024 9:54am Venous insufficiency (chroni c) (peripheral) chronic August 12, 2024 9:54am Acute superficial venous thrombosis of right lower extremity acute September 06, 2024 11:15am Venous insufficiency (chroni c) (peripheral) chronic September 06, 2024 11:15am Acute superficial venous thrombosis of right lower extremity acute September 28, 2024 1 :25pm Stasis dermatitis of both legs acute September 28, 2024 1:25pm Symptomatic varicose veins o f both lower extremities acute September 28, 2024 1:25pm Venous insufficiency (chroni c) (peripheral) chronic September 28, 2024 1 :25pm [facility] Work Phone: 1(765) 994-662501-17-2025 Evaluation + Plan note* Assessment & Plan Note - Harvinder Mendoza DO - 06/03/2024 10:16 PM ESTAssociated Problem(s): Screening for AAA (abdominal aortic aneurysm) 68 yo former smoker. Screen for AAA with US, ordered today. [id number] Miscellaneous Notes* Assessment & Plan Note - Harvinder Mendoza DO - 06/03/2024 10:16 PM ESTAssociated Problem(s): Screening for AAA (abdominal aortic aneurysm) 68 yo former smoker. Screen for AAA with US, ordered today. * Assessment & Plan Note - Harvinder Mendoza DO - 06/03/2024 10:14 PM EST Associated Problem(s): Overweight (BMI 25.0-29.9) BMI 28.1. Discussed healthy lifestyle including well-balanced diet, reducing portions and sugar. Begin routine exercise, goal 150 min cardiovascular exercise weekly. - Check CBC, CMP, TSH, A1c - Monitor for improvement * Assessment & Plan Note - Harvinder Mendoza DO - 06/03/2024 10:12 PM EST Associated Problem(s): Vitamin B12 deficiency Hx of low normal B12. On vitamin B12 supplement 1000 mg daily. - Check updated serum B12, may discontinue supplement if appropriate * Assessment & Plan Note - Harvinder Mendoza DO - 06/03/2024 10:10 PM EST Associated Problem(s): Hypertension BP goal <130/90. Well-controlled on lisinopril 20 mg daily. Continue. - Check updated CMP, CBC, TSH - Follow up in 6 months * Assessment & Plan Note - Harvinder Mendoza DO - 06/03/2024 10:08 PM EST Associated Problem(s): Mixed hyperlipidemia Last lipid panel 03/2024 with total cholesterol 235, LDL 162, HDL 58, trig 75. Hx statin myopathy with atorvastatin, and elevated CK. Recheck CK. He is planning to start supplementing with red yeast rice and fish oil. Will recheck lipids in 6 months. If not improving, consider hydrophilic statin; rosuvastatin or pravastatin. documented in this [id number] Evaluation + Plan note* Assessment & Plan Note - Harvinder Mendoza DO - 06/03/2024 10:14 PM EST Associated Problem(s): Overweight (BMI 25.0-29.9) BMI 28.1. Discussed healthy lifestyle including well-balanced diet, reducing portions and sugar. Begin routine exercise, goal 150 min cardiovascular exercise weekly. - Check CBC, CMP, TSH, A1c - Monitor for improvement [id number] Evaluation + Plan note* Assessment & Plan Note - Harvinder Mendoza DO - 06/03/2024 10:12 PM ESTAssociated Problem(s): Vitamin B12 deficiency Hx of low normal B12. On vitamin B12 supplement 1000 mg daily. - Check updated serum B12, may discontinue supplement if appropriate [id number] Evaluation + Plan note* Assessment & Plan Note - Harvinder Mendoza DO - 06/03/2024 10:10 PM ESTAssociated Problem(s): Hypertension BP goal <130/90. Well-controlled on lisinopril 20 mg daily. Continue. - Check updated CMP, CBC, TSH - Follow up in 6 months [id number] Evaluation + Plan note* Assessment & Plan Note - Harvinder Mendoza DO - 06/03/2024 10:08 PM ESTAssociated Problem(s): Mixed hyperlipidemia Last lipid panel 03/2024 with total cholesterol 235, LDL 162, HDL 58, trig 75. Hx statin myopathy with atorvastatin, and elevated CK. Recheck CK. He is planning to start supplementing with red yeast rice and fish oil. Will recheck lipids in 6 months. If not improving, consider hydrophilic statin; rosuvastatin or pravastatin. [id number] Instructions* Patient Instructions* Harvinder Mendoza DO - 05/30/2024 8:48 AM EST Your exercise goal is 150 minutes weekly (30 min/day, 5 days/week) of cardiovascular exercise. I recommend updating your tetanus booster at your pharmacy. * Attachments The following attachments cannot be sent through Care Everywhere. * [employer]: General Info (Syriac) documented in this [id number] History of Present illness Narrative* Harvinder Mendoza DO - 05/30/2024 8:00 AM EST Assessment/Plan: Mixed hyperlipidemia Last lipid panel 03/2024 with total cholesterol 235, LDL 162, HDL 58, trig 75. Hx statin myopathy with atorvastatin, and elevated CK. Recheck CK. He is planning to start supplementing with red yeast rice and fish oil. Will recheck lipids in 6 months. If not improving, consider hydrophilic statin; rosuvastatin or pravastatin. Hypertension BP goal <130/90. Well-controlled on lisinopril 20 mg daily. Continue. - Check updated CMP, CBC, TSH - Follow up in 6 months Vitamin B12 deficiency Hx of low normal B12. On vitamin B12 supplement 1000 mg daily. - Check updated serum B12, may discontinue supplement if appropriate Overweight (BMI 25.0-29.9) BMI 28.1. Discussed healthy lifestyle including well-balanced diet, reducing portions and sugar. Begin routine exercise, goal 150 min cardiovascular exercise weekly. - Check CBC, CMP, TSH, A1c - Monitor for improvement Screening for AAA (abdominal aortic aneurysm) 68 yo former smoker. Screen for AAA with US, ordered today. Subjective: Nancie Sánchez is a 68 y.o. male Chief Complaint Patient presents with Establish Care Wants Blood work done Presenting to establish care. PMH: HTN, HLD, alopecia totalis, basal cell HLD Planning to start red yeast rice and fish oil He was previously on atorvastatin, but experienced joint pain. He might be open to trying a hydrophilic statin if needed in the future. 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 Cross Optometry Dentist Urologist - Dr. Cueto Diet: Well-balanced, eats meat, calcium foods. Lot of sugar in things like sweet salad dressing or ashley slaw. Exercise: No regular routine Hydration: not enough water Caffeine: Coffee 2 cups/day Occupation: Retired end of 2023 The following portions of the patient's history were reviewed and updated as appropriate: allergies, current medications, past family history, past medical history, past social history, past surgicalhistory and problem list. Review of Systems Objective: PACU Vitals 05/30/24 0802 BP: 134/84 Pulse: Resp: Temp: SpO2: Physical Exam Constitutional: General: He is not in acute distress. Appearance: Normal appearance. He is well-developed. He is not ill-appearing. HENT: Head: Normocephalic and atraumatic. Right Ear: Tympanic membrane, ear canal and external ear normal. There is no impacted cerumen. Left Ear: Tympanic membrane, ear canal and external ear normal. There is no impacted cerumen. Mouth/Throat: Mouth: Mucous membranes are moist. Eyes: General: No scleral icterus. Right eye: No discharge. Left eye: No discharge. Pupils: Pupils are equal, round, and reactive to light. Neck: Thyroid: No thyromegaly. Cardiovascular: Rate and Rhythm: Normal rate and regular rhythm. Heart sounds: Normal heart sounds. No murmur heard. Pulmonary: Effort: Pulmonary effort is normal. No respiratory distress. Breath sounds: Normal breath sounds. No wheezing or rales. Abdominal: General: Abdomen is flat. Bowel sounds are normal. Palpations: Abdomen is soft. Tenderness: There is no abdominal tenderness. There is no guarding. Musculoskeletal: Cervical back: Neck supple. Right lower leg: No edema. Left lower leg: No edema. Lymphadenopathy: Cervical: No cervical adenopathy. Skin: General: Skin is warm and dry. Coloration: Skin is not jaundiced or pale. Comments: Scant amount of hair on forearms. Neurological: General: No focal deficit present. Mental Status: He is alert. Psychiatric: Mood and Affect: Mood normal. Behavior: Behavior normal. Thought Content: Thought content normal. For any new medications prescribed today, patient was educated about indications for the medication, how to take the medication and potential side effects of the medications. My ongoing relationship with Nancie Sánchez requires continued responsibility and cognitive effort of being the focal point for all services related to chronic condition(s). Harvinder Mendoza DO 05/30/2024 8:08 AM PHQ-9 Review Little interest or pleasure in doing things 0 Feeling down, depressed, or hopeless 0 PHQ-2 Total Score 0 Trouble falling or staying asleep, or sleeping too much 0 Feeling tired or having little energy 0 Poor appetite or overeating 0 Feeling bad about yourself - or that you are a failure or have let yourself or your family down 0 Trouble concentrating on things, such as reading the newspaper or watching television 0 Moving or speaking so slowly that other people could have noticed. Or the opposite - being so fidgety or restless that you have been moving around a lot more than usual 0 Thoughts that you would be better off , or of hurting yourself in some way 0 PHQ-9 Total Score 0 documented in this [id number] NoteAssessment/Plan: Mixed hyperlipidemia Last lipid panel 03/2024 with total cholesterol 235, LDL 162, HDL 58, trig 75. Hx statin myopathy with atorvastatin, and elevated CK. Recheck CK. He is planning to start supplementing with red yeast rice and fish oil. Will recheck lipids in 6 months. If not improving, consider hydrophilic statin; rosuvastatin or pravastatin. Hypertension BP goal <130/90. Well-controlled on lisinopril 20 mg daily. Continue. - Check updated CMP, CBC, TSH - Follow up in 6 months Vitamin B12 deficiency Hx of low normal B12. On vitamin B12 supplement 1000 mg daily. - Check updated serum B12, may discontinue supplement if appropriate Overweight (BMI 25.0-29.9) BMI 28.1. Discussed healthy lifestyle including well-balanced diet, reducing portions and sugar. Begin routine exercise, goal 150 min cardiovascular exercise weekly. - Check CBC, CMP, TSH, A1c - Monitor for improvement Screening for AAA (abdominal aortic aneurysm) 68 yo former smoker. Screen for AAA with US, ordered today. Subjective: Nancie Sánchez is a 68 y.o. male Chief Complaint Patient presents with Establish Care Wants Blood work done Presenting to establish care. PMH: HTN, HLD, alopecia totalis, basal cell HLD Planning to start red yeast rice and fish oil He was previously on atorvastatin, but experienced joint pain. He might be open to trying a hydrophilic statin if needed in the future. 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 Cross Optometry Dentist Urologist - Dr. Cueto Diet: Well-balanced, eats meat, calcium foods. Lot of sugar in things like sweet salad dressing or ashley slaw. Exercise: No regular routine Hydration: not enough water Caffeine: Coffee 2 cups/day Occupation: Retired end of 2023 The following portions of the patient's history were reviewed and updated as appropriate: allergies, current medications, past family history, past medical history, past social history, past surgical history and problem list. Review of Systems Objective: PACU Vitals 05/30/24 0802 BP: 134/84 Pulse: Resp: Temp: SpO2: Physical Exam Constitutional: General: He is not in acute distress. Appearance: Normal appearance. He is well-developed. He is not ill-appearing. HENT: Head: Normocephalic and atraumatic. Right Ear: Tympanic membrane, ear canal and external ear normal. There is no impacted cerumen. Left Ear: Tympanic membrane, ear canal and external ear normal. There is no impacted cerumen. Mouth/Throat: Mouth: Mucous membranes are moist. Eyes: General: No scleral icterus. Right eye: No discharge. Left eye: No discharge. Pupils: Pupils are equal, round, and reactive to light. Neck: Thyroid: No thyromegaly. Cardiovascular: Rate and Rhythm: Normal rate and regular rhythm. Heart sounds: Normal heart sounds. No murmur heard. Pulmonary: Effort: Pulmonary effort is normal. No respiratory distress. Breath sounds: Normal breath sounds. No wheezing or rales. Abdominal: General: Abdomen is flat. Bowel sounds are normal. Palpations: Abdomen is soft. Tenderness: There is no abdominal tenderness. There is no guarding. Musculoskeletal: Cervical back: Neck supple. Right lower leg: No edema. Left lower leg: No edema. Lymphadenopathy: Cervical: No cervical adenopathy. Skin: General: Skin is warm and dry. Coloration: Skin is not jaundiced or pale. Comments: Scant amount of hair on forearms. Neurological: General: No focal deficit present. Mental Status: He is alert. Psychiatric: Mood and Affect: Mood normal. Behavior: Behavior normal. Thought Content: Thought content normal. For any new medications prescribed today, patient was educated about indications for the medication, how to take the medication and potential side effects of the medications. My ongoing relationship with Nancie Sánchez requires continued responsibility and cognitive effort of being the focal point for all services related to chronic condition(s). Harvinder Mendoza DO 05/30/2024 8:08 AM PHQ-9 Review Little interest or pleasure in doing things 0 Feeling down, depressed, or hopeless 0 PHQ-2 Total Score 0 Trouble falling or staying asleep, or sleeping too much 0 Feeling tired or having little energy 0 Poor appetite or overeating 0 Feeling bad about yourself - or that you are a failure or have let yourself or your family down 0 Trouble concentrating on things, such as reading the newspaper or watching television 0 Moving or speaking so slowly that other people could have noticed. Or the opposite - being so fidgety or restless that you have been moving around a lot more than usual 0 Thoughts that you would be better off , or of h (more content not included)...[facility]12-02-2024 Evaluation + Plan note* Assessment & Plan Note - Sana Dexter DO - 04/18/2024 3:33 PM ESTAssociated Problem(s): Hyperlipidemia LDL goal <100 -He clearly has a statin intolerance -We will try Zetia 10 mg daily and we will see him back in approximately 4 months for reevaluation -He is also reminded to watch his diet closely and to refrain from alcohol consumption [facility] Work Phone: 1(139) 964-594612-02-2024 Miscellaneous Notes* Assessment & Plan Note - Sana Dexter DO - 04/18/2024 3:33 PM ESTAssociated Problem(s): Hyperlipidemia LDL goal <100 -He clearly has a statin intolerance -We will try Zetia 10 mg daily and we will see him back in approximately 4 months for reevaluation -He is also reminded to watch his diet closely and to refrain from alcohol consumption documented in this [facility] Work Phone: 1(205) 934-560312-02-2024 History of Present illness Narrative* Sana Edgar DO Vivek - 04/18/2024 3:00 PM EST Subjective Patient ID: Nancie Sánchez is a 68 y.o. male who presents for Follow-up (6 mo follow, lab results). HPI He is here today for follow-up. He reports feeling relatively well. He will be embarking on nursing home after the first of the year and he states he is going to make a lot of lifestyle changes after that time. We did conduct a review of systems and we also went over the results of recent lab work. He went off of his atorvastatin and is feeling better. His cholesterol unfortunately went back to being very high. We have officially determine that he has a statin intolerance and will not try this medication in the future. I have suggested we try Zetia and he is agreeable. We also remind him to refrain from alcohol use. His CPK has come down and is approaching normal levels. His blood pressure isgood today. We decided to have him come back after his 69th birthday and he will be getting lab work as well as his PSA for prostate cancer screening. Review of Systems Constitutional: Negative for fatigue and unexpected weight change. Respiratory: Negative for cough, chest tightness, shortness of breath and wheezing. Cardiovascular: Negative for chest pain, palpitations and leg swelling. Gastrointestinal: Negative for abdominal pain, blood in stool, diarrhea, nausea and vomiting. Musculoskeletal: Negative for arthralgias and back pain. Objective Physical Exam Vitals and nursing note reviewed. Constitutional: General: He is not in acute distress. Appearance: Normal appearance. HENT: Head: Normocephalic and atraumatic. Eyes: Conjunctiva/sclera: Conjunctivae normal. Cardiovascular: Rate and Rhythm: Normal rate and regular rhythm. Heart sounds: Normal heart sounds. Pulmonary: Effort: No respiratory distress. Breath sounds: No wheezing. Abdominal: Palpations: Abdomen is soft. Tenderness: There is no abdominal tenderness. There is no guarding. Musculoskeletal: General: No swelling. Normal range of motion. Skin: General: Skin is warm and dry. Neurological: General: No focal deficit present. Mental Status: He is alert and oriented to person, place, and time. Psychiatric: Behavior: Behavior normal. Recent Results (from the past 4 weeks) Basic Metabolic Panel Collection Time: 04/11/24 7:21 AM Result Value Ref Range Glucose 93 74 - 99 mg/dL Sodium 139 136 - 145 mmol/L Potassium 4.7 3.5 - 5.3 mmol/L Chloride 103 98 - 107 mmol/L Bicarbonate 30 21 - 32 mmol/L Anion Gap 11 10 - 20 mmol/L Urea Nitrogen 13 6 - 23 mg/dL Creatinine 0.90 0.50 - 1.30 mg/dL eGFR >90 >60 mL/min/1.73m*2 Calcium 9.8 8.6 - 10.3 mg/dL Lipid Panel Collection Time: 04/11/24 7:21 AM Result Value Ref Range Cholesterol 235 (H) 0 - 199 mg/dL HDL-Cholesterol 58.0 mg/dL Cholesterol/HDL Ratio 4.1 LDL Calculated 162 (H) <=99 mg/dL VLDL 15 0 - 40 mg/dL Triglycerides 75 0 - 149 mg/dL Non HDL Cholesterol 177 (H) 0 - 149 mg/dL CK Collection Time: 04/11/24 7:21 AM Result Value Ref Range Creatine Kinase 482 (H) 0 - 325 U/L Assessment/Plan Problem List Items Addressed This Visit ICD-10-CM Hyperlipidemia LDL goal <100 E78.5 -He clearly has a statin intolerance -We will try Zetia 10 mg daily and we will see him back in approximately 4 months for reevaluation -He is also reminded to watch his diet closely and to refrain from alcohol consumption Relevant Medications ezetimibe (Zetia) 10 mg tablet Other Relevant Orders Lipid Panel Hepatic Function Panel Screening for prostate cancer Z12.5 Relevant Orders Prostate Spec.Ag,Screen Elevated CPK R74.8 Relevant Orders CK Statin myopathy - Primary G72.0, T46.6X5A Patient instructions As we discussed we are trying a new medication known as Zetia and please take this once a day as directed until our next visit. If for some reason you feel like you are not tolerating it please give us a call. Please remember to eat healthy as well as exercise regularly. With your upcoming nursing home I am hoping that you will carve out time every day for your wellness and fitness. We will see you back in 4 months and just prior to that visit you will go for fasting lab work Sana Dexter DO [facility] Work Phone: 1(132) 769-547812-02-2024 Instructions* Patient Instructions* Sana Dexter DO - 04/18/2024 3:00 PM EST As we discussed we are trying a new medication known as Zetia and please take this once a day as directed until our next visit. If for some reason you feel like you are not tolerating it please give us a call. Please remember to eat healthy as well as exercise regularly. With your upcoming nursing home I am hoping that you will carve out time every day for your wellness and fitness. We will see you back in 4 months and just prior to that visit you will go for fasting lab work [facility] Work Phone: 1(686) 334-570207-15-2024 Evaluation + Plan note* Assessment & Plan Note - Sana Dexter DO - 11/30/2023 1:30 PM EDTAssociated Problem(s): Elevated CPK -We decided to repeat his CPK in 8 weeks from now and I will be calling him. [facility] Work Phone: 1(115) 591-792207-15-2024 Evaluation + Plan note* Assessment & Plan Note - Sana Dexter DO - 11/30/2023 1:30 PM EDTAssociated Problem(s): Alcohol consumption heavy -He will refrain from any alcohol use for the next 8 weeks and he will call if he is having problems doing so -We also discussed the possibility of treating depression or anxiety and we also discussed seeing acounselor which I think would be one of the best options [facility] Work Phone: 1([phone]) 447-872107-15-2024 Miscellaneous Notes* Assessment & Plan Note - Sana Dexter DO - 11/30/2023 1:30 PM EDTAssociated Problem(s): Elevated CPK -We decided to repeat his CPK in 8 weeks from now and I will be calling him. * Assessment & Plan Note - Sana Dexter DO - 11/30/2023 1:30 PM EDT Associated Problem(s): Alcohol consumption heavy -He will refrain from any alcohol use for the next 8 weeks and he will call if he is having problems doing so -We also discussed the possibility of treating depression or anxiety and we also discussed seeing acounselor which I think would be one of the best options * Addendum Note - Sana Dexter DO - 11/30/2023 1:00 PM EDTAddended by: SANA DEXTER on: 11/30/2023 01:33 PM Modules accepted: Orders [facility] Work Phone: 1([phone]) 469-947807-15-2024 History of Present illness Narrative* Sana Dexter DO - 11/30/2023 1:00 PM EDT Subjective Patient ID: Nancie Sánchez is a 68 y.o. male who presents for 1 month follow up (Review labs ). HPI He is here today for his checkup and we had him go again for a CK level. Our initial thought was that the atorvastatin was causing the elevation in his enzymes but despite cessation of that drug his CK level still remains elevated. We had instructed holding alcohol intake when we decided to check it again but he states that he was not completely forthright. He states he did have some significant amount of alcohol prior to the blood test. He states he realizes now that he is probably drinking too much and he states he has made up his mind today that he is going to quit for 2 months. I told himto let me know if he has difficulties doing so. He states he is facing nursing home in about 6 monthsfrom now and he is just feeling a little bit lost about what is going to do after nursing home. We talked about looking into different ways to lower even possibly getting a part-time job that he would enjoy doing. We also talked about the possibility of self-medicating with the alcohol and about the possibility of depression or anxiety. He states he will think about all these things and he will letme know if he is having problems stopping the alcohol. He states he will make sure that he has not 1 drop of alcohol for the next 2 months and we will recheck his CK level again. I am also going to check a phosphorus level and vitamin B12 level just to cover the bases and have agreed to contact himwith those results. I will also be calling him with the CK level from 2 months and if necessary we could refer him to rheumatology to help explore other possible reasons for his elevation. Objective Physical Exam Vitals and nursing note reviewed. Constitutional: General: He is not in acute distress. Appearance: Normal appearance. HENT: Head: Normocephalic and atraumatic. Eyes: Conjunctiva/sclera: Conjunctivae normal. Cardiovascular: Rate and Rhythm: Normal rate and regular rhythm. Heart sounds: Normal heart sounds. Pulmonary: Effort: No respiratory distress. Breath sounds: No wheezing. Abdominal: Palpations: Abdomen is soft. Tenderness: There is no abdominal tenderness. There is no guarding. Musculoskeletal: General: No swelling. Normal range of motion. Skin: General: Skin is warm and dry. Neurological: General: No focal deficit present. Mental Status: He is alert and oriented to person, place, and time. Psychiatric: Behavior: Behavior normal. Assessment/Plan Problem List Items Addressed This Visit ICD-10-CM Alcohol consumption heavy - Primary Z78.9 -He will refrain from any alcohol use for the next 8 weeks and he will call if he is having problems doing so -We also discussed the possibility of treating depression or anxiety and we also discussed seeing acounselor which I think would be one of the best options Elevated CPK R74.8 -We decided to repeat his CPK in 8 weeks from now and I will be calling him. Relevant Orders Phosphorus Vitamin B12 CK Sana Dexter DO documented in this [facility] Work Phone: 1([phone]) 902-253807-15-2024 Instructions* Patient Instructions* Sana Dexter DO - 11/30/2023 1:00 PM EDT As we discussed we decided to do 1 more try on seeing if your CPK level will normalize. He will refrain from having any alcohol whatsoever at least for the next 8 weeks and if you are having trouble doing so please let me know Also I would like for you to get a couple additional labs that can be done at your earliest convenience and do not require fasting Please let me know if you are feeling depressed or anxious as we can certainly treat that and I think based on our discussion today that you would be best served seeing a counselor to see if you can figure out what is going on and create a brighter looking future for you. documented in this [facility]Un[facility] Work Phone: 1(123) 576-938407-15-2024 Note* Addendum Note - Sana Dexter DO - 11/30/2023 1:00 PM EDTAddended by: SANA DEXTER on: 11/30/2023 01:33 PM Modules accepted: Orders [facility] Work Phone: 1([phone]) 858-829206-17-2024 Evaluation + Plan note* Assessment & Plan Note - Aleshia Elaine APRN-MATERIAL CONTROL MANAGER - 11/02/2023 3:57 PM EDTAssociated Problem(s): 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 We reviewed conservative measures for cervical and shoulder pain/arthritis symptom control. May take Tylenol per package directions, diclofenac gel up to 4 times daily. Encouraged daily and as neededstretching referral for PT eval and treat. We reviewed cervical and bilateral shoulder imaging during today's visit. 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 I did recommend pain management or brand specialist evaluation for possibility of cortisone injection if symptoms do not improve with PT and topical diclofenac gel. Patient wishes to discuss this with his PCP as well. I will be to follow-up here after PT, sooner for anychanges or concerns. This note was generated using [employer] software. It may contain errors in wording, punctuation or spelling. [facility] Work Phone: 1([phone]) 340-850406-17-2024 Miscellaneous Notes* Assessment & Plan Note - ALAN Chi - 11/02/2023 3:57 PM EDTAssociated Problem(s): 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 We reviewed conservative measures for cervical and shoulder pain/arthritis symptom control. May take Tylenol per package directions, diclofenac gel up to 4 times daily. Encouraged daily and as neededstretching referral for PT eval and treat. We reviewed cervical and bilateral shoulder imaging during today's visit. 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 I did recommend pain management or brand specialist evaluation for possibility of cortisone injection if symptoms do not improve with PT and topical diclofenac gel. Patient wishes to discuss this with his PCP as well. I will be to follow-up here after PT, sooner for anychanges or concerns. This note was generated using [employer] software. It may contain errors in wording, punctuation or spelling. documented in this encounterUn[facility] Work Phone: 1(337) 353-443206-17-2024 History of Present illness Narrative* ALAN Chi - 11/02/2023 8:45 AM EDT Subjective Patient ID: Nancie Sánchez is a 68 y.o. male. Chief Complaint: Pain and New Patient Visit of the Left Shoulder (Pt states he has had pain in his shoulder for the last 8 months.) and Pain and New Patient Visit of the Right Shoulder (Pt states he has had pain in his shoulder for the last 8 months./) HPI: Liborio is a pleasant 68-year-old gentleman presenting today for new patient visit for evaluation of bilateral shoulder pain and cervical neck pain. Symptoms have been aggravating for approximately the last 8 months, no injuries. Patient states bilateral shoulder pains are about the same, right occasionally worse and more aggravated with sleep. Reports, lots of clicking, right greater than left. Patient states he frequently awakens and has to reposition. Left arm symptoms are aggravated with use of a Carey which he does approximately twice a month. No recent or remote injuries or surgeriesto neck or shoulders. Patient is right-hand dominant. Review of Systems Constitutional: Negative. HENT: Negative. Respiratory: Negative. Cardiovascular: Negative. Endocrine: Negative. Musculoskeletal: Positive for arthralgias. Skin: Negative. Neurological: Negative. Hematological: Negative. Psychiatric/Behavioral: Negative. Objective Back Exam Tenderness The patient is experiencing tenderness in the cervical. Range of Motion Extension: 50 Flexion: 70 Lateral bend right: 40 Lateral bend left: 40 Rotation right: 70 Rotation left: 70 Comments: Spurling's negative bilaterally, no pain over vertebrae or paraspinals Right Shoulder Exam Tenderness The patient is experiencing tenderness in the acromioclavicular joint (Minimal). Range of Motion Active abduction: 160 External rotation: 70 Forward flexion: 160 Muscle Strength Biceps: 4/5 Other Erythema: absent Sensation: normal Pulse: present Comments: Full ROM of distal joints with no sx aggravation, distal motor and sensory intact, cap refill at 2 seconds. Left Shoulder Exam Tenderness The patient is experiencing tenderness in the acromioclavicular joint (Minimal). Range of Motion Active abduction: 160 External rotation: 70 Forward flexion: 160 Muscle Strength Biceps: 4/5 Other Erythema: absent Sensation: normal Pulse: present Comments: Mild left shoulder droop noted on exam compared to right. Full ROM of distal joints with no sx aggravation, distal motor and sensory intact, cap refill at 2 seconds. Image Results: XR shoulder right 2+ views Narrative: Interpreted By: Yenny Perez, STUDY: XR SHOULDER RIGHT 2+ VIEWS; ; 10/19/2023 8:47 am INDICATION: Signs/Symptoms:pain 6 months. COMPARISON: None. ACCESSION NUMBER(S): [id number] ORDERING CLINICIAN: SANA DEXTER FINDINGS: Five views right shoulder: There is no fracture or dislocation. There is degenerative change of the right acromioclavicular joint with mild spurring superiorly and inferiorly. Impression: Mild right acromioclavicular joint osteoarthritis. MACRO: None Signed by: Yenny Perez 10/20/2023 8:40 AM Dictation workstation: [id number] XR shoulder left 2+ views Narrative: Interpreted By: Yenny Perez, STUDY: XR SHOULDER LEFT 2+ VIEWS; ; 10/19/2023 8:48 am INDICATION: Signs/Symptoms:pain. COMPARISON: None. ACCESSION NUMBER(S): [id number] ORDERING CLINICIAN: SANA DEXTER FINDINGS: Five views left shoulder: There is no fracture or dislocation. There is a degenerative change of the left acromioclavicular joint with mild spurring superiorly. Impression: Mild left acromioclavicular joint osteoarthritis. MACRO: None Signed by: Yenny Perez 10/20/2023 8:40 AM Dictation workstation: [id number] XR cervical spine 2-3 views Narrative: Interpreted By: Yenny ePrez, STUDY: XR CERVICAL SPINE 2-3 VIEWS; 10/19/2023 8:48 am 3 views. INDICATION: Signs/Symptoms:neck pain and bilateral shoulder pain. COMPARISON: None. ACCESSION NUMBER(S): [id number] ORDERING CLINICIAN: SANA DEXTER FINDINGS: There is no fracture or prevertebral soft tissue swelling. There is no subluxation. There is mild anterior osteophytic spurring at C3-4. There is marked anterior and moderate posterior osteophytic spurring at C4-5. There is marked anterior and marked posterior osteophytic spurring at C5-6 and C6-7. The disc spaces are preserved. 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 Impression: Bony changes of DISH. 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 May take Tylenol per package directions, diclofenac gel up to 4 times daily. Encouraged daily and as neededstretching referral for PT eval and treat. We reviewed cervical and bilateral shoulder imaging during today's visit. 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 I did recommend pain management or brand specialist evaluation for possibility of cortisone injection if symptoms do not improve with PT and topical diclofenac gel. Patient wishes to discuss this with his PCP as well. I will be to follow-up here after PT, sooner for anychanges or concerns. This note was generated using [employer] software. It may contain errors in wording, punctuation or spelling. [facility] Work Phone: 1(166) 836-166806-03-2024 Evaluation + Plan note* Assessment & Plan Note - Sana Dexter DO - 10/19/2023 7:23 AM EDTAssociated Problem(s): Polyarthropathy -He went off of his atorvastatin for a little bit over a month and he assigns only a 5% improvementin his symptoms -I do want to recheck a CPK level as the initial 1 was elevated at 564 -I will be calling him with results and instructions on medication [facility] Work Phone: [phone]) [phone] Evaluation + Plan note* Assessment & Plan Note - Sana Dexter DO - 10/19/2023 7:23 AM EDTAssociated Problem(s): Chronic pain of both shoulders -He has had symptoms for the last 6 months -He has no numbness, tingling, or weakness -He describes having some neck discomfort but he describes it is minuscule -We will order x-rays of his shoulders and also an x-ray of his neck. I have agreed to contact him with results -His biomarkers of inflammation are negative -I am referring him to orthopedics [facility] Work Phone: 1([phone]) 487-729406-03-2024 Miscellaneous Notes* Assessment & Plan Note - Sana Dexter DO - 10/19/2023 7:23 AM EDTAssociated Problem(s): Polyarthropathy -He went off of his atorvastatin for a little bit over a month and he assigns only a 5% improvementin his symptoms -I do want to recheck a CPK level as the initial 1 was elevated at 564 -I will be calling him with results and instructions on medication * Assessment & Plan Note - Sana Dexter DO - 10/19/2023 7:23 AM EDT Associated Problem(s): Chronic pain of both shoulders -He has had symptoms for the last 6 months -He has no numbness, tingling, or weakness -He describes having some neck discomfort but he describes it is minuscule -We will order x-rays of his shoulders and also an x-ray of his neck. I have agreed to contact him with results -His biomarkers of inflammation are negative -I am referring him to orthopedics documented in this [facility] Work Phone: 1([phone]) 316-148906-03-2024 History of Present illness Narrative* Sana Dexter, DO - 10/19/2023 7:00 AM EDT Subjective Patient ID: Nancie Sánchez is a 68 y.o. male who presents for Follow-up. HPI He is here today for follow-up. We discussed his bilateral shoulder pain and even sometimes right elbow pain. At his last visit approximately 1 month ago I decided to have him at least temporarily discontinue his statin medication. We ordered biomarkers of inflammation and interestingly his CPK level did come back at 564. The rest of his labs were negative. He states that he does not feel so far that there is been a significant change in his symptoms and he assigns a 5% improvement from his baseline. He states he never gets numbness or tingling and he does not really experience weakness but he has pain. He states he has some neck discomfort but he considers it very minimal. He states his shoulders ache a lot sometimes and when he is lying in bed rolling from [id number] he cannot get comfortable. 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 He states he has had his pain for about the last 6 months. On testing today he has no evidence of weakness. I decided to recheck a CPK level and I will be contacting with the results. We will also do x-rays of his neck and shoulders. I told him that I am going to have him see orthopedics for his shoulders to see if they think that the predominant problem is in the shoulder joint. He is agreeable and willing to help facilitate a referral. I have agreed to call him with all the testing that we have ordered today and otherwise we will see him back as previously planned. Review of Systems Constitutional: Negative for fatigue. Respiratory: Negative for cough, chest tightness, shortness of breath and wheezing. Cardiovascular: Negative for chest pain, palpitations and leg swelling. Gastrointestinal: Negative for abdominal pain, blood in stool, diarrhea, nausea and vomiting. Musculoskeletal: Negative for arthralgias and back pain. Objective Physical Exam Vitals and nursing note reviewed. Constitutional: General: He is not in acute distress. Appearance: Normal appearance. HENT: Head: Normocephalic and atraumatic. Eyes: Conjunctiva/sclera: Conjunctivae normal. Cardiovascular: Rate and Rhythm: Normal rate and regular rhythm. Heart sounds: Normal heart sounds. Pulmonary: Effort: No respiratory distress. Breath sounds: No wheezing. Abdominal: Palpations: Abdomen is soft. Tenderness: There is no abdominal tenderness. There is no guarding. Musculoskeletal: General: No swelling. Normal range of motion. Skin: General: Skin is warm and dry. Neurological: General: No focal deficit present. Mental Status: He is alert and oriented to person, place, and time. Psychiatric: Behavior: Behavior normal. Recent Results (from the past 1344 hour(s)) Sedimentation Rate Collection Time: 09/14/23 7:35 AM Result Value Ref Range Sedimentation Rate 1 0 - 20 mm/h C-reactive protein Collection Time: 09/14/23 7:35 AM Result Value Ref Range C-Reactive Protein 0.11 <1.00 mg/dL Rheumatoid factor Collection Time: 09/14/23 7:35 AM Result Value Ref Range Rheumatoid Factor <10 0 - 15 IU/mL JOSE Collection Time: 09/14/23 7:35 AM Result Value Ref Range JOSE Negative Negative CK Collection Time: 09/14/23 7:35 AM Result Value Ref Range Creatine Kinase 564 (H) 0 - 325 U/L CBC and Auto Differential Collection Time: 09/14/23 7:35 AM Result Value Ref Range WBC 4.5 4.4 - 11.3 x10*3/uL nRBC 0.0 0.0 - 0.0 /100 WBCs RBC 4.76 4.50 - 5.90 x10*6/uL Hemoglobin 15.0 13.5 - 17.5 g/dL Hematocrit 45.9 41.0 - 52.0 % MCV 96 80 - 100 fL MCH 31.5 26.0 - 34.0 pg MCHC 32.7 32.0 - 36.0 g/dL RDW 12.1 11.5 - 14.5 % Platelets 279 150 - 450 x10*3/uL Neutrophils % 52.2 40.0 - 80.0 % Immature Granulocytes %, Automated 0.2 0.0 - 0.9 % Lymphocytes % 29.1 13.0 - 44.0 % Monocytes % 10.8 2.0 - 10.0 % Eosinophils % 6.8 0.0 - 6.0 % Basophils % 0.9 0.0 - 2.0 % Neutrophils Absolute 2.36 1.20 - 7.70 x10*3/uL Immature Granulocytes Absolute, Automated 0.01 0.00 - 0.70 x10*3/uL Lymphocytes Absolute 1.32 1.20 - 4.80 x10*3/uL Monocytes Absolute 0.49 0.10 - 1.00 x10*3/uL Eosinophils Absolute 0.31 0.00 - 0.70 x10*3/uL Basophils Absolute 0.04 0.00 - 0.10 x10*3/uL Lyme disease, PCR Collection Time: 09/14/23 7:35 AM Result Value Ref Range Lyme Disease (Borrelia burgdorferi), PCR Not Detected Lyme Source Blood Assessment/Plan Problem List Items Addressed This Visit ICD-10-CM 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 -He went off of his atorvastatin for a little bit over a month and he assigns only a 5% improvementin his symptoms -I do want to recheck a CPK level as the initial 1 was elevated at 564 -I will be calling him with results and instructions on medication Relevant Orders CK Neck pain, chronic M54.2, G89.29 Relevant Orders XR cervical spine 2-3 views Chronic pain of both shoulders M25.511, G89.29, M25.512 -He has had symptoms for the last 6 months -He has no numbness, tingling, or weakness -He describes having some neck discomfort but he describes it is minuscule -We will order x-rays of his shoulders and also an x-ray of his neck. I have agreed to contact him with results -His biomarkers of inflammation are negative -I am referring him to orthopedics Relevant Orders XR shoulder right 2+ views XR shoulder left 2+ views XR cervical spine 2-3 views Referral to Orthopaedic Surgery Sana Dexter DO documented in this [facility] Work Phone: [phone]) [phone] Instructions* Patient Instructions* Sana Dexter DO - 10/19/2023 7:00 AM EDT As we discussed I would like to repeat your CPK blood test and you can get that done today before leaving. I will contact you with results and give you further instructions on your cholesterol medication As you are fully aware of ordered x-rays of your neck and shoulders and once the results come back I will contact you I am also placing referral to orthopedics to help evaluate your shoulders. If you think that your symptoms are coming from the neck you will need to see a different provider because orthopedic surgeons almost never address neck issues We will see you back as previously planned documented in this [facility] Work Phone: [phone]) 374-106504-29-2024 Evaluation + Plan note* Assessment & Plan Note - Sana Dexter DO - 09/14/2023 7:18 AM EDTAssociated Problem(s): Gluten intolerance -He has agreed to go on a strict gluten-free diet and we will see what happens to his symptoms [facility] Work Phone: 1([phone]) [phone] Evaluation + Plan note* Assessment & Plan Note - Sana Dexter DO - 09/14/2023 7:18 AM EDTAssociated Problem(s): Polyarthropathy -It is quite possible that the gluten diet is contributing to a lot of his symptoms and he has agreed to go entirely gluten-free -I will also temporarily have him stop his atorvastatin although I do not feel that this is the culprit -I am also checking biomarkers of inflammation and of course we will contact him with results once they are known [facility] Work Phone: [phone]) [phone] Miscellaneous Notes* Assessment & Plan Note - Sana Dexter DO - 09/14/2023 7:18 AM EDTAssociated Problem(s): Gluten intolerance -He has agreed to go on a strict gluten-free diet and we will see what happens to his symptoms * Assessment & Plan Note - Sana Dexter DO - 09/14/2023 7:18 AM EDT Associated Problem(s): Polyarthropathy -It is quite possible that the gluten diet is contributing to a lot of his symptoms and he has agreed to go entirely gluten-free -I will also temporarily have him stop his atorvastatin although I do not feel that this is the culprit -I am also checking biomarkers of inflammation and of course we will contact him with results once they are known * Assessment & Plan Note - Sana Dexter DO - 09/14/2023 7:17 AM EDT Associated Problem(s): Other fatigue -I will be checking a CBC documented in this [facility] Work Phone: [phone]) [phone] Evaluation + Plan note* Assessment & Plan Note - Sana Dexter DO - 09/14/2023 7:17 AM EDTAssociated Problem(s): Other fatigue -I will be checking a CBC [facility] Work Phone: [phone] History of Present illness Narrative* Sana Dexter DO - 09/14/2023 7:00 AM EDT Subjective Patient ID: Nancie Sánchez is a 68 y.o. male who presents for No chief complaint on file.. HPI He is here today for evaluation of pain involving multiple joints of his body. He explains that he started noticing some left shoulder pain and initially concluded that it might be secondary to all of the immunizations that he receives in that arm. He then started feeling some pain in his right shoulder and then more recently pain in his elbows and in his hands. 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 He states the other day his left hand was so painful he could not squeeze a stapler. He states he is even noticed some pain in his hips. He does complain of some fatigue but has had no fevers or other systemic symptoms. We did conduct a full review of systems. He states occasionally he will have some numbness or tingling in his right arm but he also explains that he does a lot of tossing and turning while he sleeps and he talks his arm up underneath the pillow and sleeps in odd positions. We are thinking that that is because of the nerve impingement based on his position. These symptoms of numbness and tingling do not occur when he is up andand about his day. He denies any neck pain. On today's examination he had no weakness in his upper extremities. We are reminded that he started taking atorvastatin for years ago but his recent symptoms he stateshave been going on for about 6 months and are gradually getting worse. We discussed various possible contributing factors. I explained that it is unlikely that the atorvastatin is the culprit. However, I will have him stop the atorvastatin at least temporarily to see ifthe symptoms resolve. I have also decided to order biomarkers of inflammation and once the results are known I will contact him. He will contact me several weeks after stopping the atorvastatin to let me know how he is feeling. I told him if we do not get to the root of the problem we might consider some type of musculoskeletal issue with his shoulders or possibly his neck. 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 He reminded me that he has discovered that he has a gluten sensitivity and he states that when he was avoiding gluten based products he felt great. He states more recently he went back to eating gluten containingfoods and this has been an issue with multiple symptoms. We of course are asking that he go back to a very strict gluten-free diet and I will see him back in a couple of weeks to make sure he is getting better. Review of Systems Constitutional: Positive for fatigue. Negative for fever. HENT: Positive for congestion. Respiratory: Negative for cough, chest tightness, shortness of breath and wheezing. Cardiovascular: Negative for chest pain, palpitations and leg swelling. Gastrointestinal: Negative for abdominal pain, blood in stool, diarrhea, nausea and vomiting. Musculoskeletal: Negative for arthralgias, back pain and neck pain. Objective Physical Exam Vitals and nursing note reviewed. Constitutional: General: He is not in acute distress. Appearance: Normal appearance. HENT: Head: Normocephalic and atraumatic. Eyes: Conjunctiva/sclera: Conjunctivae normal. Cardiovascular: Rate and Rhythm: Normal rate and regular rhythm. Heart sounds: Normal heart sounds. Pulmonary: Effort: No respiratory distress. Breath sounds: No wheezing. Abdominal: Palpations: Abdomen is soft. Tenderness: There is no abdominal tenderness. There is no guarding. Musculoskeletal: General: No swelling. Normal range of motion. Skin: General: Skin is warm and dry. Neurological: General: No focal deficit present. Mental Status: He is alert and oriented to person, place, and time. Psychiatric: Behavior: Behavior normal. Recent Results (from the past 1344 hour(s)) Prostate Specific Antigen Collection Time: 08/14/23 8:08 AM Result Value Ref Range Prostate Specific AG 3.29 <=4.00 ng/mL Basic Metabolic Panel Collection Time: 08/14/23 9:29 AM Result Value Ref Range Glucose 73 (L) 74 - 99 mg/dL Sodium 138 136 - 145 mmol/L Potassium 4.3 3.5 - 5.3 mmol/L Chloride 101 98 - 107 mmol/L Bicarbonate 26 21 - 32 mmol/L Anion Gap 15 10 - 20 mmol/L Urea Nitrogen 18 6 - 23 mg/dL Creatinine 0.95 0.50 - 1.30 mg/dL eGFR 87 >60 mL/min/1.73m*2 Calcium 9.6 8.6 - 10.3 mg/dL Hemoglobin A1C Collection Time: 08/14/23 9:29 AM Result Value Ref Range Hemoglobin A1C 5.4 see below % Estimated Average Glucose 108 Not Established mg/dL Assessment/Plan Problem List Items Addressed This Visit ICD-10-CM 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 -It is quite possible that the gluten diet is contributing to a lot of his symptoms and he has agreed to go entirely gluten-free -I will also temporarily have him stop his atorvastatin although I do not feel that this is the culprit -I am also checking biomarkers of inflammation and of course we will contact him with results once they are known Relevant Orders Sedimentation Rate C-reactive protein Rheumatoid factor JOSE CK CBC and Auto Differential Lyme disease, PCR Other fatigue R53.83 -I will be checking a CBC Relevant Orders CBC and Auto Differential Gastroesophageal reflux disease without esophagitis K21.9 Gluten intolerance K90.41 -He has agreed to go on a strict gluten-free diet and we will see what happens to his symptoms Sana Dexter DO [facility] Work Phone: [phone]) [phone] Instructions* Patient Instructions* Sana Dexter DO - 09/14/2023 7:00 AM EDT As we discussed I will have you get lab work drawn today before leaving and once the results are known I will try to contact you via PHRQL with the results. If you do not look at the message hours we will call you instead Please work on becoming entirely gluten-free because as you may realize a gluten diet can cause several symptoms including aching of the joints. I will also have you temporarily stop your atorvastatin -As we discussed before you left today we will have you return in approximately 1 month for follow-up and please call sooner if you feel like your condition is worsening as opposed to getting better [facility] Work Phone: 1(211) [phone] Evaluation + Plan note* Assessment & Plan Note - Sana Dexter DO - 08/17/2023 11:56 AM EDTAssociated Problem(s): Medicare annual wellness visit, subsequent -We discussed fall prevention and the importance of providing a copy of his advance directives [facility] Work Phone: 1([phone]) [phone] Evaluation + Plan note* Assessment & Plan Note - Sana Dexter DO - 08/17/2023 11:56 AM EDTAssociated Problem(s): HTN (hypertension) -Currently very well-controlled and we will continue to [facility] Work Phone: [phone] Evaluation + Plan note* Assessment & Plan Note - Sana Dexter DO - 08/17/2023 11:56 AM EDTAssociated Problem(s): Hyperlipidemia LDL goal <100 -He will continue with atorvastatin 40 mg daily -He decided to stop taking fish oil and we will see what his cholesterol looks like at his next follow-up visit [facility] Work Phone: [phone] Miscellaneous Notes* Assessment & Plan Note - Sana Dexter DO - 08/17/2023 11:56 AM EDTAssociated Problem(s): Medicare annual wellness visit, subsequent -We discussed fall prevention and the importance of providing a copy of his advance directives * Assessment & Plan Note - Sana Dexter DO - 08/17/2023 11:56 AM EDT Associated Problem(s): HTN (hypertension) -Currently very well-controlled and we will continue to monitor * Assessment & Plan Note - Sana Dexter DO - 08/17/2023 11:56 AM EDT Associated Problem(s): Hyperlipidemia LDL goal <100 -He will continue with atorvastatin 40 mg daily -He decided to stop taking fish oil and we will see what his cholesterol looks like at his next follow-up visit documented in this [facility] Work Phone: [phone]) 370-567004-01-2024 History of Present illness Narrative* Sana Dexter DO - 08/17/2023 11:20 AM EDT Subjective Reason for Visit: Nancie Sánchez is an 67 y.o. male here for a Medicare Wellness visit. Reviewed all medications by prescribing practitioner or clinical pharmacist (such as prescriptions,OTCs, herbal therapies and supplements) and documented in the medical record. HPI He is here today for his improved teen checkup and also to complete his annual Medicare wellness visit. He is looking well and also reports feeling well. He denies any recent symptoms of depression and has had no falls in the last year. We talked about fall prevention and I have specifically recommended he put grab bars in the bathroom. His memory and hearing is good. He tries to eat a well-balanced diet. He is very physically active and we remind him to try to get 30 minutes of aerobic activity 5 days a week. He states he has recently completed his advance directives and I do asked that he provide a copy of his power of training and development officer for healthcare and living will. We also went over the results of his lab work and overall I am very pleased with his readings. His fasting glucose was normal andhis hemoglobin A1c was well within desirable range. His kidney function also looks good. We also did briefly discussed his PSA which was a checkup from 6 months ago. He is encouraged to keep his follow-up appointment with urology for checkup. We also discussed his history of heart disease and he continues to take his atorvastatin as directed. We will be checking his cholesterol next visit. He stopped taking the fish oil so we will see what the numbers look like at his follow-up visit. He is having no cardiopulmonary symptoms and again stays active. We we will provide refills today and if every thing goes according to plan we will see him back in 6 months for reevaluation. Patient Care Team: Sana Dexter DO as PCP - General Sana Dexter DO as PCP - MSSP ACO Attributed Provider Review of Systems Constitutional: Negative for fatigue. Respiratory: Negative for cough, shortness of breath and wheezing. Cardiovascular: Negative for chest pain, palpitations and leg swelling. Gastrointestinal: Negative for abdominal pain, blood in stool, diarrhea, nausea and vomiting. Musculoskeletal: Negative for arthralgias and back pain. Objective Vitals: BP 124/72 Pulse 76 Ht 1.829 m (6') Wt 84.4 kg (186 lb) SpO2 98% BMI 25.23 kg/m Physical Exam Vitals and nursing note reviewed. Constitutional: General: He is not in acute distress. Appearance: Normal appearance. HENT: Head: Normocephalic and atraumatic. Eyes: Conjunctiva/sclera: Conjunctivae normal. Cardiovascular: Rate and Rhythm: Normal rate and regular rhythm. Heart sounds: Normal heart sounds. Pulmonary: Effort: No respiratory distress. Breath sounds: No wheezing. Abdominal: Palpations: Abdomen is soft. Tenderness: There is no abdominal tenderness. There is no guarding. Musculoskeletal: General: No swelling. Normal range of motion. Skin: General: Skin is warm and dry. Neurological: General: No focal deficit present. Mental Status: He is alert and oriented to person, place, and time. Psychiatric: Behavior: Behavior normal. Recent Results (from the past 672 hour(s)) Prostate Specific Antigen Collection Time: 08/14/23 8:08 AM Result Value Ref Range Prostate Specific AG 3.29 <=4.00 ng/mL Basic Metabolic Panel Collection Time: 08/14/23 9:29 AM Result Value Ref Range Glucose 73 (L) 74 - 99 mg/dL Sodium 138 136 - 145 mmol/L Potassium 4.3 3.5 - 5.3 mmol/L Chloride 101 98 - 107 mmol/L Bicarbonate 26 21 - 32 mmol/L Anion Gap 15 10 - 20 mmol/L Urea Nitrogen 18 6 - 23 mg/dL Creatinine 0.95 0.50 - 1.30 mg/dL eGFR 87 >60 mL/min/1.73m*2 Calcium 9.6 8.6 - 10.3 mg/dL Hemoglobin A1C Collection Time: 08/14/23 9:29 AM Result Value Ref Range Hemoglobin A1C 5.4 see below % Estimated Average Glucose 108 Not Established mg/dL Assessment/Plan Problem List Items Addressed This Visit Hyperlipidemia LDL goal <100 Current Assessment & Plan -He will continue with atorvastatin 40 mg daily -He decided to stop taking fish oil and we will see what his cholesterol looks like at his next follow-up visit Relevant Medications atorvastatin (Lipitor) 40 mg tablet Other Relevant Orders Lipid Panel RESOLVED: Hyperglycemia HTN (hypertension) Current Assessment & Plan -Currently very well-controlled and we will continue to monitor Relevant Medications lisinopril 20 mg tablet Other Relevant Orders Basic Metabolic Panel Medicare annual wellness visit, subsequent - Primary Current Assessment & Plan -We discussed fall prevention and the importance of providing a copy of his advance directives [facility]: [phone]) 470-361004-01-2024 Instructions* Patient Instructions* Sana Dexter DO - 08/17/2023 11:20 AM EDT As we discussed I think overall your checkup is very good today Please try to remember to get 30 minutes of aerobic activity 5 days a week Please also try to provide a copy of your advance directives which would include the power of training and development officer for healthcare and living will We would like to see you back in approximately 6 months and just prior to that visit please remember to get fasting lab work [facility] Work Phone: [phone] 450-879507-03-2023 Evaluation + Plan note* Assessment & Plan Note - Sana Dexter DO - 11/17/2022 8:25 AM EDTAssociated Problem(s): Hyperlipidemia LDL goal <100 -His cholesterol profile is excellent and we will check this annually per Medicare protocol -We are providing a refill on atorvastatin 40 mg daily [facility] Work Phone: [phone] 383-642207-03-2023 Evaluation + Plan note* Assessment & Plan Note - Sana Dexter DO - 11/17/2022 8:25 AM EDTAssociated Problem(s): Alopecia areata -He reports now growing no hair on his face around his ears and also in his head. He still however has plenty of hair on his arms. He has had diagnosed alopecia in the past and we talked about checking a thyroid blood test. He will get that done today and we will contact him with results -We also discussed seeing a heat treat technician if he would like for a second opinion [facility] Work Phone: [phone] Miscellaneous Notes* Assessment & Plan Note - Sana Dexter DO - 11/17/2022 8:25 AM EDTAssociated Problem(s): Hyperlipidemia LDL goal <100 -His cholesterol profile is excellent and we will check this annually per Medicare protocol -We are providing a refill on atorvastatin 40 mg daily * Assessment & Plan Note - Sana Dexter DO - 11/17/2022 8:25 AM EDT Associated Problem(s): Alopecia areata -He reports now growing no hair on his face around his ears and also in his head. He still however has plenty of hair on his arms. He has had diagnosed alopecia in the past and we talked about checking a thyroid blood test. He will get that done today and we will contact him with results -We also discussed seeing a heat treat technician if he would like for a second opinion * Assessment & Plan Note - Sana Dexter DO - 11/17/2022 8:24 AM EDT Associated Problem(s): Hyperglycemia -He still has a mildly elevated fasting glucose level but his overall glycemic control has improveddramatically as evidenced by reduced hemoglobin A1c from 5.6 down to 5.3 -We will continue to check blood glucose levels periodically -He is encouraged to keep up the great work with his diet and exercise routine * Assessment & Plan Note - Sana Dexter DO - 11/17/2022 8:24 AM EDT Associated Problem(s): HTN (hypertension) -Today's blood pressure was excellent -He will continue taking lisinopril 20 mg daily -He will call if he discovers that his blood pressure was lower or causing any significant symptomsas we would reduce the dose of his lisinopril to 10 mg daily documented in this [facility] Work Phone: [phone] Evaluation + Plan note* Assessment & Plan Note - Sana Dexter DO - 11/17/2022 8:24 AM EDTAssociated Problem(s): Hyperglycemia -He still has a mildly elevated fasting glucose level but his overall glycemic control has improveddramatically as evidenced by reduced hemoglobin A1c from 5.6 down to 5.3 -We will continue to check blood glucose levels periodically -He is encouraged to keep up the great work with his diet and exercise routine [facility] Work Phone: [phone] Evaluation + Plan note* Assessment & Plan Note - Sana Dexter DO - 11/17/2022 8:24 AM EDTAssociated Problem(s): HTN (hypertension) -Today's blood pressure was excellent -He will continue taking lisinopril 20 mg daily -He will call if he discovers that his blood pressure was lower or causing any significant symptomsas we would reduce the dose of his lisinopril to 10 mg daily [facility] Work Phone: [phone] History of Present illness Narrative* Sana Dexter DO - 11/17/2022 8:00 AM EDT Subjective Patient ID: Nancie Sánchez is a 67 y.o. male who presents for Follow-up (6 MO FUV). HPI He is here today for his 6-month checkup. He is looking well and reports feeling well. He states hehas made a lot of lifestyle habit changes including eliminating gluten and sugar from his daily repertoire. He states he also stopped consuming alcohol for several months. He states he started feeling better immediately and a lot of the symptoms he was experiencing had resolved. He also lost approximately 30 pounds. He states he is incorporating some sugar back into his diet but is trying to watch portions and so forth. His blood pressure was excellent today but he states that in the past it seemed to be a little bit lower. He will continue to monitor and if necessary we will reduce the dose of his lisinopril. We also conducted a full review of systems. We also reviewed his most recent laboratory test results. He managed to drop his hemoglobin A1c from 5.6 down to 5.3. His kidney functionis excellent and his cholesterol profile was also excellent. He did have a spike in his PSA value and he has been seen recently by Dr. Cueto. The plan is to reevaluate the PSA in 6 months from now andhe will get my lab work done at the same time. We are providing refills on medications today. I will summarize everything in a problem based format Review of Systems Constitutional: Negative for fatigue. Respiratory: Negative for cough, chest tightness, shortness of breath and wheezing. Cardiovascular: Negative for chest pain, palpitations and leg swelling. Gastrointestinal: Negative for abdominal pain, blood in stool, diarrhea, nausea and vomiting. Musculoskeletal: Negative for arthralgias and back pain. Objective Physical Exam Vitals and nursing note reviewed. Constitutional: General: He is not in acute distress. Appearance: Normal appearance. HENT: Head: Normocephalic and atraumatic. Eyes: Conjunctiva/sclera: Conjunctivae normal. Cardiovascular: Rate and Rhythm: Normal rate and regular rhythm. Heart sounds: Normal heart sounds. Pulmonary: Effort: No respiratory distress. Breath sounds: No wheezing. Abdominal: Palpations: Abdomen is soft. Tenderness: There is no abdominal tenderness. There is no guarding. Musculoskeletal: General: No swelling. Normal range of motion. Skin: General: Skin is warm and dry. Neurological: General: No focal deficit present. Mental Status: He is alert and oriented to person, place, and time. Psychiatric: Behavior: Behavior normal. Recent Results (from the past 672 hour(s)) Prostate Specific Antigen, Screen Collection Time: 11/08/22 8:17 AM Result Value Ref Range Prostate Specific Antigen,Screen 4.00 0.00 - 4.00 ng/mL Hemoglobin A1C Collection Time: 11/08/22 8:17 AM Result Value Ref Range Hemoglobin A1C 5.3 % Estimated Average Glucose 105 MG/DL Lipid Panel Collection Time: 11/08/22 8:17 AM Result Value Ref Range Cholesterol 127 0 - 199 mg/dL HDL 53.0 mg/dL Cholesterol/HDL Ratio 2.4 LDL 59 0 - 99 mg/dL VLDL 15 0 - 40 mg/dL Triglycerides 75 0 - 149 mg/dL Basic Metabolic Panel Collection Time: 11/08/22 8:17 AM Result Value Ref Range Glucose 109 (H) 74 - 99 mg/dL Sodium 138 136 - 145 mmol/L Potassium 4.3 3.5 - 5.3 mmol/L Chloride 103 98 - 107 mmol/L Bicarbonate 28 21 - 32 mmol/L Anion Gap 11 10 - 20 mmol/L Urea Nitrogen 13 6 - 23 mg/dL Creatinine 0.79 0.50 - 1.30 mg/dL GFR MALE >90 >90 mL/min/1.73m2 Calcium 9.5 8.6 - 10.3 mg/dL Assessment/Plan Problem List Items Addressed This Visit Hyperlipidemia LDL goal <100 -His cholesterol profile is excellent and we will check this annually per Medicare protocol -We are providing a refill on atorvastatin 40 mg daily Relevant Medications atorvastatin (Lipitor) 40 mg tablet Hyperglycemia -He still has a mildly elevated fasting glucose level but his overall glycemic control has improveddramatically as evidenced by reduced hemoglobin A1c from 5.6 down to 5.3 -We will continue to check blood glucose levels periodically -He is encouraged to keep up the great work with his diet and exercise routine Relevant Orders Basic Metabolic Panel Hemoglobin A1C HTN (hypertension) -Today's blood pressure was excellent -He will continue taking lisinopril 20 mg daily -He will call if he discovers that his blood pressure was lower or causing any significant symptomsas we would reduce the dose of his lisinopril to 10 mg daily Relevant Medications lisinopril 10 mg tablet Alopecia areata - Primary -He reports now growing no hair on his face around his ears and also in his head. He still however has plenty of hair on his arms. He has had diagnosed alopecia in the past and we talked about checking a thyroid blood test. He will get that done today and we will contact him with results -We also discussed seeing a heat treat technician if he would like for a second opinion Relevant Orders TSH Sana Dexter DO [facility] Work Phone: [phone] Instructions* Patient Instructions* Sana Dexter DO - 11/17/2022 8:00 AM EDT As we discussed we will have you get a thyroid blood test performed today before leaving and we will contact you with results If you would like to be referred to a heat treat technician for your hair loss please let us know Please continue the wonderful work with your diet and exercise regimen If everything goes according to plan we will see you back in approximately 6 months and please remember to get fasting lab work done just prior to that visit [facility] Work Phone: [phone]) [phone] History of Present illness Narrativepatient is here today to establish care..Chronic BPH sx are mild and stable...No urgency or frequency...No dysuria..No hematuria..Nocturia 1-2x..pt is not currently taking any medications for LUTS..Most recent PSA was done 11/07 and was 4.00. Prior PSA was done 11/06 and was 1.92...prior PSA was done05/07 and was 2.22. No fhx of prostate cancer. He states his PSA does Fluctuate. He has not had a Bx or MRI in the past. ED is mild.[id number] Work Phone: Evaluation note* Diagnosis Alopecia areata- Primary Hyperglycemia Other abnormal glucose Secondary hypertension Other secondary hypertension, unspecified Hyperlipidemia LDL goal <100 Other and unspecified hyperlipidemia documented in this encounter [facility] Work Phone: Evaluation note* Diagnosis Medicare annual wellness visit, subsequent- Primary Hyperlipidemia LDL goal <100 Other and unspecified hyperlipidemia Secondary hypertension Other secondary hypertension, unspecified Hyperglycemia Other abnormal glucose documented in this encounter [facility] Work Phone: [phone] note* Diagnosis Polyarthropathy- Primary Unspecified polyarthropathy or polyarthritis, site unspecified Other fatigue Gastroesophageal reflux disease without esophagitis Esophageal reflux Gluten intolerance Celiac disease documented in this encounter [facility] Work Phone: [phone] note* Diagnosis Polyarthropathy- Primary Unspecified polyarthropathy or polyarthritis, site unspecified Neck pain, chronic Chronic pain of both shoulders documented in this encounter [facility] Work Phone: [phone] note* Diagnosis Chronic pain of both shoulders documented in this encounter [facility] Work Phone: [phone] note* Diagnosis Neck pain, chronic Chronic pain of both shoulders documented in this encounter [facility] Work Phone: [phone] note* Diagnosis Chronic pain of both shoulders- Primary Cervical spine arthritis Cervical spondylosis without myelopathy 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 documented in this encounter [facility] Work Phone: Evaluation note* Diagnosis Alopecia areata- Primary Hyperglycemia Other abnormal glucose Secondary hypertension Other secondary hypertension, unspecified Hyperlipidemia LDL goal <100 Other and unspecified hyperlipidemia Medicare annual wellness visit, subsequent- Primary Hyperlipidemia LDL goal <100 Other and unspecified hyperlipidemia Secondary hypertension Other secondary hypertension, unspecified Hyperglycemia Other abnormal glucose Polyarthropathy- Primary Unspecified polyarthropathy or polyarthritis, site unspecified Other fatigue Gastroesophageal reflux disease without esophagitis Esophageal reflux Gluten intolerance Celiac disease Polyarthropathy- Primary Unspecified polyarthropathy or polyarthritis, site unspecified Neck pain, chronic Chronic pain of both shoulders Chronic pain of both shoulders- Primary Cervical spine arthritis Cervical spondylosis without myelopathy 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- Primary Elevated CPK Other nonspecific abnormal serum enzyme levels Statin myopathy- Primary Toxic myopathy Elevated CPK Other nonspecific abnormal serum enzyme levels Screening for prostate cancer Special screening for malignant neoplasm of prostate Hyperlipidemia LDL goal <100 Other and unspecified hyperlipidemia documented in this encounter [facility] Work Phone: Evaluation note* Diagnosis Alopecia areata- Primary Hyperglycemia Other abnormal glucose Secondary hypertension Other secondary hypertension, unspecified Hyperlipidemia LDL goal <100 Other and unspecified hyperlipidemia Medicare annual wellness visit, subsequent- Primary Hyperlipidemia LDL goal <100 Other and unspecified hyperlipidemia Secondary hypertension Other secondary hypertension, unspecified Hyperglycemia Other abnormal glucose Polyarthropathy- Primary Unspecified polyarthropathy or polyarthritis, site unspecified Other fatigue Gastroesophageal reflux disease without esophagitis Esophageal reflux Gluten intolerance Celiac disease Polyarthropathy- Primary Unspecified polyarthropathy or polyarthritis, site unspecified Neck pain, chronic Chronic pain of both shoulders Chronic pain of both shoulders- Primary Cervical spine arthritis Cervical spondylosis without myelopathy 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- Primary Elevated CPK Other nonspecific abnormal serum enzyme levels documented in this encounter [facility] Work Phone: Evaluation note* Diagnosis Primary hypertension- Primary Unspecified essential hypertension Mixed hyperlipidemia Alopecia totalis Other alopecia Overweight (BMI 25.0-29.9) Overweight Screening for metabolic disorder Screening for prostate cancer Special screening for malignant neoplasm of prostate Abnormal finding of blood chemistry, unspecified Vitamin B12 deficiency Other B-complex deficiencies Screening for AAA (abdominal aortic aneurysm) Screening for other and unspecified cardiovascular conditions [facility] Primary hypertension- Primary Unspecified essential hypertension Mixed hyperlipidemia Alopecia totalis Other alopecia Overweight (BMI 25.0-29.9) Overweight Screening for metabolic disorder Screening for prostate cancer Special screening for malignant neoplasm of prostate Abnormal finding of blood chemistry, unspecified Vitamin B12 deficiency Other B-complex deficiencies Screening for AAA (abdominal aortic aneurysm) Screening for other and unspecified cardiovascular conditions Gastroesophageal reflux disease, unspecified whether esophagitis present- Primary Subacute cough [facility] Diagnosis Alopecia areata- Primary Hyperglycemia Other abnormal glucose Secondary hypertension Other secondary hypertension, unspecified Hyperlipidemia LDL goal <100 Other and unspecified hyperlipidemia Medicare annual wellness visit, subsequent- Primary Hyperlipidemia LDL goal <100 Other and unspecified hyperlipidemia Secondary hypertension Other secondary hypertension, unspecified Hyperglycemia Other abnormal glucose Polyarthropathy- Primary Unspecified polyarthropathy or polyarthritis, site unspecified Other fatigue Gastroesophageal reflux disease without esophagitis Esophageal reflux Gluten intolerance Celiac disease Polyarthropathy- Primary Unspecified polyarthropathy or polyarthritis, site unspecified Neck pain, chronic Chronic pain of both shoulders Chronic pain of both shoulders- Primary Cervical spine arthritis Cervical spondylosis without myelopathy 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- Primary Elevated CPK Other nonspecific abnormal serum enzyme levels Statin myopathy- Primary Toxic myopathy Elevated CPK Other nonspecific abnormal serum enzyme levels Screening for prostate cancer Special screening for malignant neoplasm of prostate Hyperlipidemia LDL goal <100 Other and unspecified hyperlipidemia Acute bronchitis, unspecified organism- Primary documented in this encounter [facility] Work Phone: Reonyh for referral (narrative)* Consultation (Routine) - Authorized Specialty Diagnoses / Procedures Referred By Neel t Referred To Contact Primary Care Procedures Follow Up In Primary Care Sana Dexter DO [address] [place] [address] Referral ID Status Reason Start Date Expiration Date V isits Requested Visits Authorized [id number] Authorized 11/17/2022 05/16/2023 1 1 [facility] Work Phone: Reukle for referral (narrative)* Consultation (Routine) - Authorized Specialty Diagnoses / Procedures Referred By Jeannetteac t Referred To Contact Primary Care Procedures Follow Up In Primary Care Sana Dexter DO [address] [place] [address] Referral ID Status Reason Start Date Expiration Date V isits Requested Visits Authorized [id number] Authorized 08/17/2023 08/16/2024 1 1 [facility] Work Phone: reason for referral (narrative)* Consultation (Routine) - Authorized Specialty Diagnoses / Procedures Referred By Contac t Referred To Contact Primary Care Procedures Follow Up In Primary Care Sana Dexter DO [address] [facility] [place] [address] Referral ID Status Reason Start Date Expiration Date V isits Requested Visits Authorized [id number] Authorized 09/14/2023 09/13/2024 1 1 [facility] Work Phone: Reason for referral (narrative)* Consultation (Routine) - Authorized Specialty Diagnoses / Procedures Referred By Neel caceres Referred To Contact Orthopaedic Surgery / Orthopedic Surgery Diagnoses Chronic pain of both shoulders Sana Dexter DO [address] [facility] [place] [address] Referral ID Status Reason Start Date Expiration Date Visits Requested Visits Authorized [id number] Authorized Specialty Services Required 10/19/2023 10/18/2024 1 1 * Imaging (Routine) - Authorized Specialty Diagnoses / Procedures Referred By Neel caceres Referred To Contact Radiology Diagnoses Neck pain, chronic Chronic pain of both shoulders Procedures XR cervical spine 2-3 views Sana Dexter DO [address] [place] [address] Referral ID Status Reason Start Date Expiration Date Visits Requested Visits Authorized [id number] Authorized Perform Procedure 10/19/2023 10/18/2024 1 1 * Imaging (Routine) - Authorized Specialty Diagnoses / Procedures Referred By Neel t Referred To Contact Radiology Diagnoses Chronic pain of both shoulders Procedures XR shoulder left 2+ views Sana Dexter DO [address] [facility] [place] [address] Referral ID Status Reason Start Date Expiration Date Visits Requested Visits Authorized [id number] Authorized Perform Procedure 10/19/2023 10/18/2024 1 1 * Imaging (Routine) - Authorized Specialty Diagnoses / Procedures Referred By Contac t Referred To Contact Radiology Diagnoses Chronic pain of both shoulders Procedures XR shoulder right 2+ views Sana Dexter DO [address] [facility] [place] [address] Referral ID Status Reason Start Date Expiration Date Visits Requested Visits Authorized [id number] Authorized Perform Procedure 10/19/2023 10/18/2024 1 1 [facility] Work Phone: Reason for referral (narrative)* Consultation (Routine) - Pending Review Specialty Diagnoses / Procedures Referred By Contac t Referred To Contact Physical Therapy Diagnoses Chronic pain of both shoulders Cervical spine arthritis AC joint arthropathy Aleshia Elaine LOSS PREVENTION ANALYST-MATERIAL CONTROL MANAGER [address] [facility] [place], [place] [address] [id number] Referral ID Status Reason Start Date Expiration Date Visits Requested Visits Authorized [id number] Pending Review Specialty Services Required 11/02/2023 11/01/2024 1 1 * Consultation (Routine) - Authorized Specialty Diagnoses / Procedures Referred By Contac t Referred To Contact Orthopaedic Surgery / Orthopedic Surgery Diagnoses Cervical spine arthritis AC joint arthropathy Procedures Follow Up In Orthopaedic Surgery Aleshia Elaine APRN-MATERIAL CONTROL MANAGER [address] [facility] [place], [place] [id number] Referral ID Status Reason Start Date Expiration Date V isits Requested Visits Authorized [id number] Authorized 11/02/2023 11/01/2024 1 1 Electronically signed by Aleshia Elaine LOSS PREVENTION ANALYST-MATERIAL CONTROL MANAGER at 11/02/2023 10:53 AM [facility] Work Phone: Reason for referral (narrative)No reason for referral information availableWUniversity [facility] Work Phone: Summary Purpose Family History No Family History Records Found Mother Name Dates Details FHx: hypertension(V17.49, Z8 2.49) Status:Active Mother Name Dates Details FHx: hypertension(V17.49, Z8 2.49) Status:Active Mother Name Dates Details FHx: hypertension(V17.49, Z8 2.49) Status:Active Mother Name Dates Details FHx: hypertension(V17.49, Z8 2.49) Status:Active Mother Name Dates Details FHx: hypertension(V17.49, Z8 2.49) Status:Active Mother Name Dates Details FHx: hypertension(V17.49, Z8 2.49) Status:Active Unknown Family Member Name Dates Details FHx: hypertension: Mother(V1 7.49, Z82.49) Status:Active Unknown Family Member Name Dates Details FHx: hypertension: Mother(V1 7.49, Z82.49) Status:Active Unknown Family Member Name Dates Details FHx: hypertension: Mother(V1 7.49, Z82.49) Status:Active Unknown Family Member Name Dates Details FHx: hypertension: Mother(V1 7.49, Z82.49) Status:Active Unknown Family Member Name Dates Details FHx: hypertension: Mother(V1 7.49, Z82.49) Status:Active Unknown Family Member Name Dates Details FHx: hypertension: Mother(V1 7.49, Z82.49) Status:Active Unknown Family Member Name Dates Details FHx: hypertension: Mother(V1 7.49, Z82.49) Status:Active Unknown Family Member Name Dates Details FHx: hypertension: Mother(V1 7.49, Z82.49) Status:Active Unknown Family Member Name Dates Details FHx: hypertension: Mother(V1 7.49, Z82.49) Status:Active Unknown Family Member Name Dates Details FHx: hypertension: Mother(V1 7.49, Z82.49) Status:Active Unknown Family Member Name Dates Details FHx: hypertension: Mother(V1 7.49, Z82.49) Status:Active Relationship Condition Age at Onset Recorded Date/T ulises Not Specified Hypertension Unknown Cerebrovascular accident (CVA) Unknown Advance Directives No Advanced Directives Records FoundDocuments on File Type Date Recorded 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 No Complaints. This note was generated by using [employer] software. It may contain errors in wording, punctuate, or spelling. * He is here today for his 6-month checkup. He is looking well and reports feeling well. We did conduct a full review of systems. When he arrived his blood pressure was elevated and he states he was feeling a little bit nervous about his lab test results. After sitting for a while it did come down. He states he checks it at home and typically gets systolic readings in the 120s. He will bring his blood pressure monitor with him on his return visit. He also has been working on improving his overallhealth and since his last visit he has lost a couple of pounds. We went over the results of his other lab work and I am very pleased with his numbers. His fasting glucose was normal and his hemoglobin A1c was in a nondiabetic range of 5.3. His liver enzymes are also normal. Unfortunately they did not draw a lipid profile but he will get that today on the way out and I have agreed to call him withresults. He states he also was advised by his human resources associate to take a baby aspirin once a day and we discussed how using a chewable 1 or an enteric-coated aspirin is fine but to be sure and take it with a meal. If everything goes according to plan we will see him back in approximately 6 months and he will get lab work at that time. * Pt presents for routine 6 mo check up; lab and med review. This note was generated by using [employer] software. It may contain errors in wording, punctuate, or spelling. This note was generated by using[employer] software. It may contain errors in wording, punctuate, or spelling. * He is here today for his 6-month checkup. He is looking well and reports feeling well. We conducteda full review of systems. When he arrived his blood pressure was a bit generous and after sitting for a while it did come down a few points. He states he checks it at home and gets systolic readings anywhere from 125 up to 135. His diastolics are around the 80 range. We talked about the goals and blood pressure management. We talked about increasing his lisinopril but he would like to try some lifestyle modifications to see if he can get it down without adding medication. I am giving him a handout that goes over some tips for improving blood pressure which he obviously understands would include weight loss and exercise. We also discussed limiting salt in the diet. We also went over the results of recent lab work and overall his numbers are looking quite good. His cholesterol was excellent. Unfortunately his blood glucose was slightly raised at 108 and we have discussed the notion of a prediabetic state. He understands that exercise and weight loss can reduce his risk of diabetes significantly. We also reviewed his PSA which came down nicely from his last checkup. We will continue tomonitor. He also states he was in [place] for a visit and he thinks that he may been bitten by a spid er on his left elbow. He states it blistered and then peeled off and he states that the lesion we see today is improving. We talked about protecting it at bedtime and he will call if it does not completely heal up. We also screen for depression and he is doing quite well. We will see him back in approximately 6 months. establish care Reason for Referral Specialty Diagnoses / Procedures Referred By Neel caceres Referred To Contact Radiology Diagnoses Chronic pain of both shoulders Procedures XR shoulder left 2+ views Sana Dexter DO [address] [facility] [facility] Medical Office [place] [id number] Referral ID Status Reason Start Date Expiration Date Visits Requested Visits Authorized [id number] Authorized Perform Procedure 10/19/2023 10/18/2024 1 1 Specialty Diagnoses / Procedures Referred By Neel caceres Referred To Contact Radiology Diagnoses Neck pain, chronic Chronic pain of both shoulders Procedures XR cervical spine 2-3 views YnesSana S, DO [address] [facility] [place] [address] Referral ID Status Reason Start Date Expiration Date Visits Requested Visits Authorized [id number] Authorized Perform Procedure 10/19/2023 10/18/2024 1 1 Specialty Diagnoses / Procedures Referred By Neel t Referred To Contact Radiology Diagnoses Chronic pain of both shoulders Procedures XR shoulder right 2+ views Royal Sana S, DO [address] [facility] [place] [address] Referral ID Status Reason Start Date Expiration Date Visits Requested Visits Authorized [id number] Authorized Perform Procedure 10/19/2023 10/18/2024 1 1 Chief Complaint and Reason for Visit Chief Complaint Admit Date VARICOSE VEINS June 29, 2024 1:05pm VARICOSE VEINS July 25, 2024 8:4 1am Reason for Visit Admit Date Symptomatic varicose veins of both lower extremities June 29, 2024 1:05pm Venous insufficiency (chronic) (peripher al) June 29, 2024 1:05pm Chief Complaint Admit Date VARICOSE VEINS June 29, 2024 1:05pm VARICOSE VEINS July 25, 2024 8:4 1am Lump on knee August 12, 2024 9:5 4am Other specified soft tissue disorders [facility] 2024 10:31am Reason for Visit Admit Date Symptomatic varicose veins of both lower extremities June 29, 2024 1:05pm Venous insufficiency (chronic) (peripher al) June 29, 2024 1:05pm Acute superficial venous thr ombosis of right lower extremity August 12, 2024 9:54am Venous insufficiency (chronic) (peripher al) August 12, 2024 9:54am Chief Complaint Admit Date VARICOSE VEINS June 29, 2024 1:05pm VARICOSE VEINS July 25, 2024 8:4 1am Lump on knee August 12, 2024 9:5 4am Other specified soft tissue disorders [facility] 2024 10:31am Pain in R Groin September 06, 2024 11: 15am RT LEG PAIN September 28, 2024 12:51 pm 3 M FU September 28, 2024 1:25p m Reason for Visit Admit Date Symptomatic varicose veins of both lower extremities June 29, 2024 1:05pm Venous insufficiency (chronic) (peripher al) June 29, 2024 1:05pm Acute superficial venous thr ombosis of right lower extremity August 12, 2024 9:54am Venous insufficiency (chronic) (peripher al) August 12, 2024 9:54am Acute superficial venous thr ombosis of right lower extremity September 06, 2024 11:15am Venous insufficiency (chronic) (peripher al) September 06, 2024 11:15am Reason for Visit Admit Date Symptomatic varicose veins of both lower extremities June 29, 2024 1:05pm Venous insufficiency (chronic) (peripher al) June 29, 2024 1:05pm Acute superficial venous thr ombosis of right lower extremity August 12, 2024 9:54am Venous insufficiency (chronic) (peripher al) August 12, 2024 9:54am Acute superficial venous thr ombosis of right lower extremity September 06, 2024 11:15am Venous insufficiency (chronic) (peripher al) September 06, 2024 11:15am Acute superficial venous thr ombosis of right lower extremity September 28, 2024 1:25pm Stasis dermatitis of both legs September 28, 2024 1:25pm Symptomatic varicose veins of both lower extremities September 28, 2024 1:25pm Venous insufficiency (chronic) (peripher al) September 28, 2024 1:25pm Additional Source Comments (unrecognized sect ion and content) No Status Records FoundNo Status Records FoundNo Status Records FoundNo Status Records FoundNo Status Records FoundNo Status Records FoundNo Status Records FoundNo Status Records FoundNo Status Records FoundNo Status Records Found INFORMATION SOURCE (unrecogn ized section and content) DATE CREATED AUTHOR 11/10/2017 [facility] DATE CREATED AUTHOR AUTHOR'S ORGANIZ ATION 11/10/2022 [employer] DATE CREATED AUTHOR AUTHOR'S ORGANIZ ATION 11/11/2022 [facility] [place] DATE CREATED AUTHOR AUTHOR'S ORGANIZ ATION 11/17/2022 [facility] DATE CREATED AUTHOR AUTHOR'S ORGANIZ ATION 04/16/2024 [facility] DATE CREATED AUTHOR AUTHOR'S ORGANIZ ATION 04/20/2024 [facility] DATE CREATED AUTHOR AUTHOR'S ORGANIZ ATION 06/10/2024 [facility] DATE CREATED AUTHOR AUTHOR'S ORGANIZ ATION 08/24/2024 [facility] DATE CREATED AUTHOR AUTHOR'S ORGANIZ ATION 08/28/2024 [facility] DATE CREATED AUTHOR AUTHOR'S ORGANIZ ATION 11/09/2024 [facility] Reason for Visit (unrecogniz ed section and content) Reason Comments Follow-up 6 MO FUV Reason Comments Follow-up Specialty Diagnoses / Procedures Referred By Contac t Referred To Contact Primary Care Procedures Follow Up In Primary Care Sana Dexter DO [address] [facility] [place] [address] Referral ID Status Reason Start Date Expiration Date V isits Requested Visits Authorized [id number] Authorized 09/14/2023 09/13/2024 1 1 Specialty Diagnoses / Procedures Referred By Contac t Referred To Contact Radiology Diagnoses Chronic pain of both shoulders Procedures XR shoulder left 2+ views Sana Dexter DO [address] [facility] [place] [address] Referral ID Status Reason Start Date Expiration Date Visits Requested Visits Authorized [id number] Authorized Perform Procedure 10/19/2023 10/18/2024 1 1 Specialty Diagnoses / Procedures Referred By Contac t Referred To Contact Radiology Diagnoses Neck pain, chronic Chronic pain of both shoulders Procedures XR cervical spine 2-3 views Sana Dexter DO [address] [facility] [place] [address] Referral ID Status Reason Start Date Expiration Date Visits Requested Visits Authorized [id number] Authorized Perform Procedure 10/19/2023 10/18/2024 1 1 Specialty Diagnoses / Procedures Referred By Contac t Referred To Contact Radiology Diagnoses Chronic pain of both shoulders Procedures XR shoulder right 2+ views Sana Dexter DO [address] [place] [id number] Referral ID Status Reason Start Date Expiration Date Visits Requested Visits Authorized [id number] Authorized Perform Procedure 10/19/2023 10/18/2024 1 1 Reason Comments Pain Pt states he has had pain in his shoulder for the last 8 months. New Patient Visit Pt states he has had pain in his shoulder for the last 8 months. Specialty Diagnoses / Procedures Referred By Neel caceres Referred To Contact Orthopaedic Surgery / Orthopedic Surgery Diagnoses Chronic pain of both shoulders Sana Dexter DO [address] [place] [id number] Referral ID Status Reason Start Date Expiration Date Visits Requested Visits Authorized [id number] Authorized Specialty Services Required 10/19/2023 10/18/2024 1 1 Reason Comments Follow-up 6 mo follow, lab res ults Specialty Diagnoses / Procedures Referred By Neel caceres Referred To Contact Primary Care Procedures Follow Up In Primary Care Sana Dexter DO Phone: tel: fax: Referral ID Status Reason Start Date Expiration Date V isits Requested Visits Authorized [id number] Authorized 08/17/2023 08/16/2024 1 1 Reason Comments 1 month follow up Review labs Reason Comments Establish Care Wants Blood work don e Reason Comments Cough Congestion Reason Comments URI Cough, chest congest ion, sore throat x 2 weeks worsening over last 5 days Care Teams (unrecognized sec tion and content) Ancillary Services Manager Relationship Specialty Start Date End Date Sana Dexter DO [address] [place] [phone] PCP - General 07/19/19 Sana Dexter DO [address] [place] [address] PCP - MSSP ACO Attributed Provider 05/18/21 Ancillary Services Manager Relationship Specialty Start Date End Date Sana Dexter DO [address] [facility] [place] [address] PCP - General 07/19/19 Sana Dexter DO [address] [facility] [place] [address] PCP - MSSP ACO Attributed Provider 05/18/21 Ancillary Services Manager Relationship Specialty Start Date End Date Sana Dexter DO [address] [facility] [place] [address] PCP - General 07/19/19 Sana Dexter DO [facility] [address] [facility] [place] [address] PCP - MSSP ACO Attributed Provider 05/18/21 Ancillary Services Manager Relationship Specialty Start Date End Date [facility] [place] [address] PCP - General 07/19/19 Sana Dexter DO [address] [facility] [place] [address] PCP - MSSP ACO Attributed Provider 05/18/21 Ancillary Services Manager Relationship Specialty Start Date End Date Sana Dexter DO [address] [facility] [place] [address] PCP - General 07/19/[address] [facility] [place] [address] PCP - MSSP ACO Attributed Provider 05/18/21 Ancillary Services Manager Relationship Specialty Start Date End Date Sana Dexter, [address] [place] [address] [place] [address] PCP - General 07/19/19 Sana Dexter, DO [address] [place] [address] [place] [address] PCP - MSSP ACO Attributed Provider 05/18/21 Ancillary Services Manager Relationship Specialty Start Date End Date Sana Dexter DO [address] [place] [address] [place] [address] PCP - General 07/19/19 Sana Dexter DO [address] [place] [address] PCP - MSSP ACO Attributed Provider 05/18/21 Ancillary Services Manager Relationship Specialty Start Date End Date Sana Dexter DO [address] [address] PCP - General 07/19/19 Sana Dexter DO [address] [address] PCP - MSSP ACO Attributed Provider 05/18/21 Ancillary Services Manager Relationship Specialty Start Date End Date Sana Dexter DO [address] [place] [address] [place] [address] PCP - General 07/19/19 Sana Dexter DO [address] [facility] [place] [address] PCP - MSSP ACO Attributed Provider 05/18/21 Ancillary Services Manager Relationship Specialty Start Date End Date Harvinder Mendoza DO [address] [address] PCP - General Family Medicine 05/30/24 Team Status: Active Member Role Status Dates Dr. Harvinder Mendoza DO Primary Care Provider Active Team Status: Inactive Member Role Status Dates Dr. Harvinder Mendoza DO Primary Care Provider Active Start: June 29, 2024 End: June 29, 2024 Dr. Harvinder Mendoza DO Referring Provider Active S tart: June 29, 2024 End: June 29, 2024 SAMEER Burnett Attending Provider Active Star t: June 29, 2024 End: June 29, 2024 Team Status: Inactive Member Role Status Dates Dr. Harvinder Mendoza DO Primary Care Provider Active Start: July 25, 2024 End: July 25, 2024 SAMEER Burnett Attending Provider Active Star t: July 25, 2024 End: July 25, 2024 SAMEER Burnett Referring Provider Active Star t: July 25, 2024 End: July 25, 2024 Team Status: Active Member Role Status Dates Dr. Harvinder Mendoza DO Primary Care Provider Active Start: July 25, 2024 Dr. Jose Alejandro Soto MD Attending Provider Active S tart: July 25, 2024 SAMEER Burnett Referring Provider Active Star t: July 25, 2024 Team Status: Inactive Member Role Status Dates Dr. Harvinder Mendoza DO Primary Care Provider Active Start: August 12, 2024 End: August 12, 2024 Dr. Harvinder Mendoza DO Referring Provider Active S tart: August 12, 2024 End: August 12, 2024 SAMEER Burnett Attending Provider Active Star t: August 12, 2024 End: August 12, 2024 Team Status: Inactive Member Role Status Dates Dr. Harvinder Mendoza DO Primary Care Provider Active Start: August 12, 2024 End: August 12, 2024 SAMEER Burnett Attending Provider Active Star t: August 12, 2024 End: August 12, 2024 SAMEER Burnett Referring Provider Active Star t: August 12, 2024 End: August 12, 2024 Team Status: Active Member Role Status Dates Dr. Harvinder Mendoza DO Primary Care Provider Active Start: August 12, 2024 Dr. Jose Alejandro Soto MD Attending Provider Active S tart: August 12, 2024 Ancillary Services Manager Relationship Specialty Start Date End Date Harvinder Mendoza DO [address] [address] PCP - General Family Medicine 05/30/24 Ancillary Services Manager Relationship Specialty Start Date End Date Sana HernándezDO [address] [address] PCP - MSSP ACO Attributed Provider 05/18/21 Harvinder Mendoza DO [address] [address] PCP - General Family Medicine 08/26/24 Team Status: Active Member Role Status Dates Dr. Harvinder Mendoza DO Primary Care Provider Active Start: August 12, 2024 Dr. Jose Alejandro Soto MD Attending Provider Active S tart: August 12, 2024 SAMEER Burnett Referring Provider Active Star t: August 12, 2024 Team Status: Inactive Member Role Status Dates Dr. Harvinder Mendoza DO Primary Care Provider Active Start: September 06, 2024 End: September 06, 2024 Dr. Harvinder Mendoza DO Referring Provider Active S tart: September 06, 2024 End: September 06, 2024 SAMEER Burnett Attending Provider Active Star t: September 06, 2024 End: September 06, 2024 Team Status: Active Member Role Status Dates Dr. Harvinder Mendoza DO Primary Care Provider Active Start: September 28, 2024 SAMEER Burnett Attending Provider Active Star t: September 28, 2024 SAMEER Burnett Referring Provider Active Star t: September 28, 2024 Team Status: Inactive Member Role Status Dates Dr. Harvinder Mendoza DO Primary Care Provider Active Start: September 28, 2024 End: September 28, 2024 Dr. Harvinder Mendoza DO Referring Provider Active S tart: September 28, 2024 End: September 28, 2024 SAMEER Burnett Attending Provider Active Star t: September 28, 2024 End: September 28, 2024 Team Status: Inactive Member Role Status Dates Dr. Harvinder Mendoza DO Primary Care Provider Active Start: September 28, 2024 End: September 28, 2024 SAMEER Burnett Attending Provider Active Star t: September 28, 2024 End: September 28, 2024 SAMEER Burnett Referring Provider Active Star t: September 28, 2024 End: September 28, 2024 Team Status: Active Member Role Status Dates Dr. Harvinder Mendoza DO Primary Care Provider Active Start: September 28, 2024 Dr. Jose Alejandro Soto MD Attending Provider Active S tart: September 28, 2024 Goals (unrecognized section and content) Goals may be documented in a n alternate sectionGoals may be documented in an alternate sectionGoals may be documented in an alternate sectionGoals may be documented in an alternate section FOR RECORDS PERTAINING TO PATIENTS WHO ARE OR HAVE BEEN ENROLLED IN A CHEMICAL DEPENDENCY/SUBSTANCEABUSE PROGRAM, SOME INFORMATION MAY BE OMITTED. This clinical summary was aggregated from multiple sources. Caution should be exercised in using it in the provision of clinical care. This summary normalizes information from multiple sources, and as a consequence, information in this document may materially change the coding, format and clinical context of patient data. In addition, data may be omitted in some cases. CLINICAL DECISIONS SHOULD BE BASED ON THE PRIMARY CLINICAL RECORDS. [employer] [facility]. provides no warranty or guarantee of the accuracy or completeness of information in this document.
== END | disposition home or self-care (01) ==
LOC: CVS 09:46
PROVIDERS: PCP Family Medicine; Referring Provider Physician Assistant; Visit Provider Physician Assistant
DX: I82.811 Embolism and thrombosis of superficial veins of right lower extremity (principal); I83.893 Varicose veins of bilateral lower extremities with other complications; M79.604 Pain in right leg
CPT/HCPCS: 93971

== ENCOUNTER 2024-12-29 08:29 | Day surgery (SDC) | payer MEDICARE, OTHER, SELFPAY ==
[2024-12-29 08:44] VITALS: BMI 28.3
--- OUTSIDE RECORDS SUMMARY | 2024-12-29 09:06 | XMS RPT_ITS | CCD ---
Author Organization [facility] Care Team Providers Care Compressed Yeast Supervisor Name Role Phone Lyndora, Sana S Unavailable Unavailable Lyndora, Sana S Unavailable Unavailable Lyndora, Sana S Unavailable Unavailable Lyndora, Sana S Unavailable Unavailable Lyndora, Sana S Unavailable Unavailable Lyndora, Sana S Unavailable Unavailable Lyndora, Sana Unavailable Unavailable Lyndora, Sana S Unavailable Unavailable Rocky, Avirup Unavailable Unavailable Rocky, Avirup Unavailable Unavailable Lyndora, Sana S Unavailable Unavailable Unavailable , Dr. Sana Hernández Attending Unavailabl e , Dr. Sana Hernández Referring Unavailabl e , Dr. Sana Hernández Primary Care Unavailabl e Cueto II, Dr. Jaspal Levi Attending Unavai lababiola Cueto II, Dr. Jaspal Levi Referring Jose Ramon Doyle, Dr. Sana Hernández Primary Care Unavailabl e Lyndora DO, Sana S Primary Care Provider Lyndora DO, Sana S Unavailable ROYAL, SANA S Primary Care Unavailable ROYAL, SANA S Primary Care Unavailable ROYAL, SANA S Primary Care Unavailable ROYAL, SANA S Primary Care Unavailable ROYAL, SANA S Primary Care Unavailable ROYAL, SANA S Primary Care Unavailable Lyndora DO, Sana S Primary Care Provider [phone] Lyndora DO, Sana S Unavailable [phone] ROYAL, SANA S Attending Unavailable ROYAL, SANA [...] ROYAL, SANA S Primary Care Unavailable Reji Harvinder LOYA Primary Care Provider HARVINDER MENDOZA Referring Unavailable REJIHARVINDER Sahu Attending Unavailable REJI, HARVINDER RBrett Primary Care Unavailable Reji DO, Dr. Chawla Primary Care Provider Reji DO, Dr. Chawla Referring Provider Lizbeth Hughes Attending Provider Lizbeth Hughes Referring Provider Charles SAUNDERS, Dr. Blount Attending Provider [phone] Lyndora DO, Snaa S Unavailable Reji DO, Harvinder Primary Care Provider [phone] ROYAL, SANA S Referring Unavailable ROYAL, SANA S Primary Care Unavailable TAWANA ELAINEE M Referring Unavailable ROYAL, SANA S Primary Care Unavailable ELAINEAMERICAALESHIA M Referring Unavailable ROYAL, SANA S Primary Care Unavailable AMERICA ELAINEANNE M Referring Unavailable ROYAL, SANA S Primary Care Unavailable AMERICA ELAINEANNE M Referring Unavailable ROYAL, SANA S Primary Care Unavailable ELAINE, ALESHIA M Referring Unavailable ROYAL, SANA S Primary Care Unavailable ELAINE, ALESHIA M Referring Unavailable ROYAL, SANA S Primary Care Unavailable ELAINE, ALESHIA M Referring Unavailable ROYAL, SANA S Primary Care Unavailable AMERICA ELAINEANNE M Referring Unavailable ROYAL, SANA S Primary Care Unavailable HARVINDER MENDOZA Primary Care Unavailable OLLIE GRANT Attending Unavailable Reji DO, Dr. Chawla Primary Care Provider Lizbeth Hughes Attending Provider Reji DO, Dr. Chawla Referring Provider Jaylin Johnson MD Unavailable Lizbeth Guevara PA-C Unavailable HARVINDER MENDOZA Attending Unavailable REJIHARVINDER Sahu Primary Care Unavailable REJIHARVINDER Sahu Attending Unavailable REJI, HARVINDER RBrett Primary Care Unavailable REJI, HARVINDER R. Primary Care Unavailable REJI, HARVINDER R. Attending Unavailable Reji, Harvinder Primary Care Unavailable [...] Referring Unavailable Reji, Harvinder Primary Care Unavailable [place], Jose Alejandro Attending Unavailable Guevara, Lizbteh Referring Unavailable Reji, Harvinder Primary Care Unavailable Charles, Jose Alejandro Attending Unavailable Guevara, Lizbeth Referring Unavailable Reji, Harvinder Primary Care Unavailable [place], Jose Alejandro Attending Unavailable Guevara, Lizbeth Referring Unavailable Reji, Harvinder Primary Care Unavailable Reji, Harvinder Referring Unavailable Guevara, Lizbeth Attending Unavailable Reji, Harvinder Primary Care Unavailable Reji, Harvinder Referring Unavailable Guevara, Lizbeth Attending Unavailable Reji, Harvinder Referring Unavailable Reji, Harvinder Primary Care Unavailable Guevara, Lizbeth Attending Unavailable Reji, Harvinder Referring Unavailable Guevara, Lizbeth Attending Unavailable Reji, Harvinder Primary Care Unavailable Reji, Harvinder Primary Care Unavailable Charles, Jose Alejandro Attending Unavailable Guevara, Lizbeth Referring Unavailable Allergies Allergy Classification Reported Allergen(s) Allergy Type Date of Onset Reaction(s) Facility Penicillins (antibiotic) (3 sources) Penicillins; Translations: [Penicillins] Drug Allergy [facility] Work Phone: (20 sources) Penicillins; Translations: [penicillins] Propensity to adverse reactions to drug (disorder) 3 Hives, Unknown, Rash [facility] Repository (7 sources) Bee Venom Protein (Honey Bee); Translations: [BEE VENOM PROTEIN (HONEY BEE)] Propensity to adverse reactions to drug 5 [facility] (5 sources) Penicillin G Drug Allergy 5 [facility] (1 source) Penicillin Drug Allergy 5 [facility] Medications Current Medications Medication Drug Class(es) Dates Sig (Normalized) Sig (Original) [id number] 200 actuat albuterol 0.09 mg/actuat metered dose [...] Ascorbate Calcium (Vitamin C) 500 mg capsule (5 sources) Start: 06-29-2024 take 1 g by mouth once daily Ascorbate Calcium (Vitamin C) 500 mg capsule Active 1 g PO daily June 29, 2024 1:00am Start: 06-29-2024 take 1 g by mouth once daily A scorbate Calcium (Vitamin C) 500 mg capsule Discontinued 1 g PO daily June 29, 2024 1:00am ascorbic acid 1000 mg oral tablet (20 sources) Vitamin C take 1 tablet by desiree th once daily ascorbic acid, vitamin C, (vitamin C) 1000 MG tablet Take 1 (one) tablet (1,000 mg total) by mouth daily . Active take 1 tablet by mouth once rebeca y ascorbic acid (Vitamin C) 500 mg tablet Take 1 tablet (500 mg) by mouth once daily. Active Vitamin C TABS T UZIEL 1 TABLET DAILY. Refills: 0 DO Active Vitamin C TABS T UZIEL 1 TABLET DAILY. Refills: 0 Active aspirin 81 mg delayed release oral tablet (20 sources) Platelet Aggregation Inhibitor, Nonsteroidal Anti-inflammatory Drug Start: 11-28-2019 aspirin 81 MG EC tablet Take 321 mg by mouth daily Vascular dr changed . 11/28/2019 Active Start: 11-28-2019 Aspirin (Adult Low Dose Aspirin) 81 mg tablet,delayed release (DR/EC) Active 81 mg PO daily June 14, 2024 1:00am atorvastatin 40 mg oral tablet (20 sources) [...] Quantity: 90 Refills: 1 Ordered: 18-Apr-2022 Sana Start : 14-Nov-2019 Active azithromycin 250 mg [...] 90 tablet 1 05/12/2024 05/12/2025 Active lisinopril 20 mg oral tablet (20 sources) Angiotensin Converting Enzyme Inhibitor Start: 06-29-2024 take 1 tablet by mouth once daily Lisinopril 10 mg tablet Active 10 mg PO daily June 29, 2024 1:00am Start: 11-17-2022 take 2 tablets by mo [facility] once daily lisinopril 10 mg tablet Indications: Secondary hypertension Take 2 tablets (20 mg) by mouth once daily. 90 tablet 3 11/17/2022 Active Start: 11-14-2019 End: 08-16-2024 take 1 tablet by mouth once daily lisinopriL (PRINIVIL,ZESTRIL) 20 MG tablet Take 1 (one) tablet (20 mg total) by mouth daily . 90 tablet 3 07/12/2024 Active Start: 11-14-2019 take 1 tablet by [facility] once daily Lisinopril 10 MG Oral Tablet TAKE 1 TABLET BY MOUTH EVERY DAY Quantity: 90 Refills: 1 Ordered: 18-Apr-2022 Sana Doyle DO Start : 14-Nov-2019 Active End: 11-17-2022 take 2 tablets by mouth once daily lisinopril 10 mg tablet Take 2 tablets (20 mg) by mouth once daily. 0 11/17/2022 Discontinued (Reorder) lutein 40 mg oral capsule (5 sources) Start: 06-29-2024 take 1 capsule by mouth once daily at mealtime Lutein 40 mg capsule Active 40 mg PO daily June 29, 2024 1:00am administer with meals magnesium oxide 300 mg magnesium tablet (10 sources) take 1 tablet by mouth three times weekly magnesium oxide 300 mg magnesium tablet Take 1 tablet by mouth 3 times a week. Active take 1 tablet by desiree th three times weekly magnesium oxide 300 mg magnesium tablet Take 1 tablet by mouth 3 times a week. 0 Active Magnesium Oxide 300 mg magne sium tablet (5 sources) Start: 06-29-2024 Magnesium Oxid e 300 mg magnesium tablet Active 300 mg PO .wkly June 29, 2024 1:00am Start: 06-29-2024 Magnesium Oxid e 300 mg magnesium tablet Discontinued 300 mg PO .wkly June 29, 2024 1:00am multivitamin (THERAGRAN) per tablet (3 sources) take 1 tablet by mouth once daily multivitamin (THERAGRAN) per tablet Take 1 (one) tablet by mouth daily . Active omega-3 fatty acids-fish oil (One-Per-Day Palmetto-3) 684-1,200 mg capsule (2 sources) End: 08-17-2023 omega-3 fatty acids-fish oil (One-Per-Day Palmetto-3) 684-1,200 mg capsule Take by mouth. 0 08/17/2023 Discontinued (Med List Cleanup) omega-3 fatty ac ids-fish oil (One-Per-Day Palmetto-3) 684-1,200 mg capsule Take by mouth. 0 Active omega-3 fatty acids/fish oil (fish oil-omega-3 fatty acids) 300-1,000 mg capsule (3 sources) take 2 capsules by mouth once daily omega-3 fatty acids/fish oil (fish oil-omega-3 fatty acids) 300-1,000 mg capsule Take 2 (two) capsules by mouth daily . Active pantoprazole 20 mg delayed release oral tablet (6 sources) Proton Pump Inhibitor Start: 08-23-19 25 End: 11-15-19 pantoprazole (PROTONIX) 20 MG tablet Indications: Gastroesophageal reflux disease, unspecified whether esophagitis present Take 1 (one) tablet (20 mg total) by mouth as needed . 30 tablet 11/14/2024 Active predniSONE 10 mg oral tablet (1 source) Start: 08-27-19 25 take 6 tablets by mouth once daily, [...] Start: 08-26-2024 take 6 tablets by mo uth once daily, then take 5 tablets by [...] with a meal. 21 tablet 08/26/2024 Active red yeast rice 600 mg oral capsule (3 sources) take 1 capsule by mouth twice daily red yeast rice 600 mg cap Take by mouth 2 (two) times a day . Active rivaroxaban 20 mg oral tablet (3 sources) Factor Xa Inhibitor Start: 5 take 1 tablet by mouth once daily at dinner Rivaroxaban (Xarelto) 20 mg tablet Active 20 mg PO daily 30 0 September 06, 2024 12:00am must administer with evening meal rosuvastatin calcium 5 mg oral tablet (1 source) HMG-CoA Reductase Inhibitor Start: 5 take 1 tablet by mouth once daily rosuvastatin (CRESTOR) 5 MG tablet Indications: Mixed hyperlipidemia Take 1 (one) tablet (5 mg total) by mouth daily . 90 tablet 2 11/28/2024 Active vit A/vit C/vit E/zinc/copper (ICAPS AREDS ORAL) (11 sources) vit A/vit C/vit E/zinc/copper (ICAPS AREDS ORAL) Take by mouth. Active vit A/vit C/vit E/zinc/copper (ICAPS AREDS ORAL) Take by mouth. 0 Active vitamin b12 1 mg oral tablet (7 sources) Vitamin B12 take 1 tablet by mouth once daily cyanocobalamin (B-12) 1000 MCG tablet Take 1 (one) tablet (1,000 mcg total) by mouth daily . Active Zinc (10 sources) take 1 tablet [...] times a week. 0 Active zinc glycinate (5 sources) Start: 06-29-2024 Zinc Glycinate 20 mg [...] TABS T UZIEL DIRECTED. Refills: 0 Active magnesium oxide 300 mg magnesium Tab (4 sources) End: 11-14-2024 magnesium oxide 300 mg magne sium Tab Take 1 tablet by mouth Thursday, Thursday, Thursday . 11/14/2024 Discontinued magnesium oxide 300 mg magnesium Tab Take 1 tablet by mouth Thursday, Thursday, Thursday . Active metoprolol tartrate 50 mg oral tablet [...] 0 Refills: 0 Ordered: 18-Jul-2019 DO Active Palmetto 3 CAPS (4 sources) Palmetto 3 CAPS DANIEL E DIRECTED. Refills: 0 DO Active Palmetto 3 CAPS DANIEL E DIRECTED. Refills: 0 Active Palmetto 3 CAPS (11 sources) Palmetto 3 CAPS DANIEL E DIRECTED. Quantity: 0 Refills: 0 Ordered: 18-Jul-2019 DO Active Palmetto 3 CAPS (3 sources) Palmetto 3 CAPS DANIEL E DIRECTED. Refills: 0 DO Active Palmetto 3 CAPS DANIEL E DIRECTED. Refills: 0 Active Vitamin C TABS (11 sources) Vitamin C TABS T UZIEL 1 TABLET DAILY. Quantity: 0 Refills: 0 Ordered: 18-Jul-2019 DO Active Problems Active Problems Problem Classification Problem Date Documented Date Episodic/Chronic Acute bronchitis (3 sources) Acute bronchitis; Translations: [Acute bronchitis, unspecified] Onset: 08-27-19 25 08-26-2024 Episodic Allergic reactions (12 sources) Non-celiac gluten [...] Hyperlipidemia; Translations: [Other and unspecified hyperlipidemia] Onset: 11-18-1911-17-2022 Chronic E Codes: Adverse effects of medical drugs (2 sources) Adverse effect of antihyperlipidemic and antiarteriosclerotic drugs, initial encounter; Translations: [Adverse effect of antihyperlipidemic and antiarteriosclerotic drugs, initial encounter] Onset: 04-18-20 Episodic Esophageal disorders (20 sources) Gastroesophageal reflux disease without esophagitis; Translations: [Gastro-esophageal reflux disease without esophagitis] Onset: 09-14-19 24 09-14-2023 Chronic Essential hypertension (20 sources) Hypertensive disorder; Translations: [Unspecified essential hypertension] Onset: 11-18-1911-17-2022 Chronic Hypertension with complications and secondary hypertension (6 sources) Secondary hypertension; Translations: [Secondary hypertension, unspecified] Onset: 11-18-1911-17-2022 Chronic Immunizations and screening for infectious disease (11 sources) Patient encounter status; Translations: [Other specified vaccination] Episodic Nonspecific chest pain (9 sources) Atypical chest pain; Translations: [Other chest pain] Episodic Osteoarthritis (9 sources) Disorder of acromioclavicular joint; Translations: [Primary osteoarthritis, unspecified shoulder] Onset: 11-02-1911-02-2023 Chronic Other connective tissue disease (4 sources) Pain in right lower limb; Translations: [Pain in right leg] 08-12-2024 Episodic Other connective tissue disease (1 source) Pain in right leg; Translations: [Pain in right leg] Onset: 09-29-19 Episodic Other diseases of veins and lymphatics (18 sources) Peripheral venous insufficiency; Translations: [Venous insufficiency (chronic) (peripheral)] 06-29-2024 Episodic Other diseases of veins and lymphatics (4 sources) Disorder of vein of lower extremity; Translations: [Venous insufficiency (chronic) (peripheral)] 09-28-2024 Episodic Other diseases of veins and lymphatics (2 sources) Venous insufficiency (chronic) (peripheral); Translations: [Venous insufficiency (chronic) (peripheral)] Onset: 09-07-19 Episodic Other injuries and conditions due to external causes (2 sources) At low risk for fall; Translations: [History of falling] 11-14-2024 Episodic Other injuries and conditions due to external causes (2 sources) History of falling; Translations: [History of falling] Onset: 11-15-19 Episodic Other liver diseases (20 sources) Steatosis of liver; Translations: [Other chronic nonalcoholic liver disease] Onset: 11-18-1911-17-2022 Chronic Other liver diseases (7 sources) Enzyme level - finding; Translations: [Rising PSA remaining within normal limits] Episodic Other lower respiratory disease (1 source) Cough; Translations: [Subacute cough] 08-22-2024 Episodic Other nervous system disorders (4 sources) Other chronic pain; Translations: [Other chronic pain] Onset: 10-19-19 Chronic Other nervous system disorders (3 sources) Drug-induced myopathy; Translations: [Drug-induced myopathy] Onset: 04-18-20 24 04-18-2024 Episodic Other non-traumatic joint disorders (11 sources) Polyarthropathy; Translations: [Polyarthritis, unspecified] Onset: 09-14-1909-14-2023 Chronic Other non-traumatic joint disorders (4 sources) Polyarthritis, unspecified; Translations: [Polyarthritis, unspecified] Onset: 09-14-19 Chronic Other nutritional; endocrine; and metabolic disorders (7 sources) Obesity; Translations: [Obesity, unspecified] Chronic Other nutritional; endocrine; and metabolic disorders (3 sources) Overweight in adulthood with body mass index of 25 or more but less than 30; Translations: [Body Mass Index 29.0-29.9, adult] Episodic Phlebitis; thrombophlebitis and thromboembolism (14 sources) Acute thrombosis of superficial vein of lower limb; Translations: [Embolism and thrombosis of superficial veins of right lower extremity] Onset: 11-15-19 25 08-12-2024 Episodic Residual codes; unclassified (20 sources) Obstructive sleep apnea syndrome; Translations: [Obstructive sleep apnea (adult)(pediatric)] Onset: 11-18-19 23 11-17-2022 Chronic Spondylosis; intervertebral disc disorders; other back problems (19 sources) Cervical arthritis; Translations: [Spondylosis without myelopathy or radiculopathy, cervical region] Onset: 11-02-19 24 11-02-2023 Chronic Unclassified (8 sources) Patient encounter status; Translations: [Screening for colorectal cancer] 06-03-2024 Varicose veins of lower extremity (14 sources) Varicose veins of lower extremity; Translations: [Varicose veins of bilateral lower extremities with other complications] Onset: 08-05-19 25 06-29-2024 Episodic Past or Other Problems Problem Classification [...] fatigue] Onset: 09-14-2023 09-14-2023 Episodic Mood disorders (10 sources) Mood disorders Onset: 05-30-2024 05-30-2024 Nutritional deficiencies (8 sources) Cobalamin deficiency; Translations: [Deficiency of other specified B group vitamins] Onset: 05-30-2024 05-30-2024 Episodic Other connective tissue disease (1 source) Other specified soft tissue disorders; Translations: [Other specified soft tissue disorders] Onset: 08-18-2024 Episodic Other liver diseases (4 sources) Abnormal levels of other serum enzymes; Translations: [Abnormal levels of other serum enzymes] Onset: 11-30-2023 Episodic Other liver diseases (5 sources) Increased creatine kinase level; Translations: [Abnormal levels of other serum enzymes] Onset: 11-30-2023 04-18-2024 Episodic Other lower respiratory disease (4 sources) Cough; Translations: [Cough] Onset: 08-22-2024 Resolved: 11-14-2024 08-22-2024 Episodic Other nervous system disorders (7 sources) Drug-induced myopathy; Translations: [Toxic myopathy] Onset: [...] not elsewhere classified] Onset: 11-09-2023 Episodic Other nutritional; endocrine; and metabolic disorders (14 sources) Body mass index 25-29 - overweight; Translations: [Body Mass Index 29.0-29.9, adult] Onset: 06-03-2024 05-30-2024 Episodic Other nutritional; endocrine; and metabolic disorders (2 sources) Overweight; Translations: [Overweight] Onset: 05-30-2024 Episodic Other screening for suspected conditions (not mental disorders or infectious disease) (20 sources) Cardiovascular stress test abnormal; Translations: [Patient encounter status] Onset: 11-17-2022 11-17-2022 Episodic Other skin disorders (19 sources) Alopecia areata; Translations: [Alopecia areata] Onset: 11-17-2022 11-17-2022 Episodic Other skin disorders (6 sources) Alopecia totalis; 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] Onset: 06-03-2024 05-30-2024 Episodic Other skin disorders (2 sources) Alopecia (capitis) totalis; 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] Onset: 05-30-2024 Episodic Residual codes; unclassified (4 sources) Heavy [...] Test Name Value Interpretation Reference Range Facility CBC (INCLUDES DIFF/PLT)on Basophils (Bld) [#/Vol] 0.052 10*3/uL Normal 0-200 [facility] Comment on above: Performed By: #### 3 6127, 87330, 5363, 6399, 7600, 496, 927 #### [facility] [address], [address] [place] [address] Cellar Hand: Abdiaziz Shanks MD Basophils/100 WBC (Bld) 1.1 % Normal [facility] Comment on above: Performed By: #### 3 6127, 31261, 5363, 6399, 7600, 496, 927 #### [facility] [address], [address] [place] [address] Cellar Hand: Abdiaziz Shanks MD Eosinophils (Bld) [#/Vol] 0.202 10*3/uL Normal 15-500 [facility] Comment on above: Performed By: #### 3 6127, 86865, 5363, 6399, 7600, 496, 927 #### [facility] [place] [address] Cellar Hand: Abdiaziz Shanks MD Eosinophils/100 WBC (Bld) 4.3 % Normal [facility] Comment on above: Performed By: #### 3 6127, 01222, 5363, 6399, 7600, 496, 927 #### [facility] [place] [address] Cellar [employer]: Abdiaziz Shanks MD Erythrocyte distribution width (RBC) [Ratio] 13.0 % Normal 11.0-15.0 [facility] Comment on above: Performed By: #### 3 6127, 26232, 5363, 6399, 7600, 496, 927 #### [facility] [place] [address] Cellar Hand: Abdiaziz Shanks MD Hematocrit (Bld) [Volume fraction] 46.0 % Normal 38.5-50.0 [facility] Comment on above: Performed By: #### 3 6127, 21161, 5363, 6399, 7600, 496, 927 #### [facility] [place] [address] Cellar Hand: Abdiaziz Shanks MD Hemoglobin (Bld) [Mass/Vol] 15.1 g/dL Normal 13.2-17.1 [facility] Comment on above: Performed By: #### 3 6127, 93784, 5363, 6399, 7600, 496, 927 #### [facility] [place] [address] Cellar Hand: Abdiaziz Shanks MD Lymphocytes (Bld) [#/Vol] 1.335 10*3/uL Normal 850-3900 [facility] Comment on above: Performed By: #### 3 6127, 05492, 5363, 6399, 7600, 496, 927 #### [place] [address] Cellar Hand: Abdiaziz Shanks MD Lymphocytes/100 WBC (Bld) 28.4 % Normal [facility] Comment on above: Performed By: #### 3 6127, 43691, 5363, 6399, 7600, 496, 927 #### [facility] [place] [address] Cellar Hand: Abdiaziz Shanks MD MCH (RBC) [Entitic mass] 31.5 pg Normal 27.0-33.0 [facility] Comment on above: Performed By: #### 3 61, 93209, 5363, 6399, 7600, 496, 927 #### [facility] [place] [address] Cellar Hand: Abdiaziz Shanks MD MCHC (RBC) [Mass/Vol] 32.8 g/dL Normal 32.0-36.0 [facility] Comment on above: Result Comment: For adults, a slight decrease in the calculated MCHC value (in the range of 30 to 32 g/dL) is most likely not clinically significant; however, it should be interpreted with caution in correlation with other red cell parameters and the patient's clinical condition. Performed By: #### 3 61, 08878, 5363, 6399, 7600, 496, 927 #### [facility] [place] [address] Cellar Hand: Abdiaziz Shanks MD MCV (RBC) [Entitic vol] 96.0 fL Normal 80.0-100.0 [facility] Comment on above: Performed By: #### 3 61, 15253, 5363, 6399, 7600, 496, 927 #### [facility] [place] [address] Cellar Hand: Abdiaziz Shanks MD Monocytes (Bld) [#/Vol] 0.451 10*3/uL Normal 200-950 [facility] Comment on above: Performed By: #### 3 61, 33149, 5363, 6399, 7600, 496, 927 #### [facility] of [address], [address] [place] [address] Cellar Hand: Abdiaziz Shanks MD Monocytes/100 WBC (Bld) 9.6 % Normal [facility] Comment on above: Performed By: #### 3 6127, 18508, 5363, 6399, 7600, 496, 927 #### [facility] of [place] [address] Cellar Hand: Abdiaziz Shanks MD Neutrophils (Bld) [#/Vol] 2.66 10*3/uL Normal 1493-9742 [facility] Comment on above: Performed By: #### 3 6127, 86951, 5363, 6399, 7600, 496, 927 #### [facility] [place] [address] Cellar Hand: Abdiaziz Shanks MD Neutrophils/100 WBC (Bld) 56.6 % Normal [facility] Comment on above: Performed By: #### 3 6127, 68716, 5363, 6399, 7600, 496, 927 #### [facility] [place] [address] Cellar Hand: Abdiaziz Shanks MD Platelet mean volume (Bld) [Entitic vol] 10.1 fL Normal 7.5-12.5 [facility] Comment on above: Performed By: #### 3 6127, 86281, 5363, 6399, 7600, 496, 927 #### [facility] of [address], [address] [place] [address] Cellar Hand: Abdiaziz Shanks MD Platelets (Bld) [#/Vol] 284 10*3/uL Normal 140-400 [facility] Comment on above: Performed By: #### 3 6127, 45051, 5363, 6399, 7600, 496, 927 #### [facility] of [place] [address] Cellar Hand: Abdiaziz Shanks MD RBC (Bld) [#/Vol] 4.79 10*6/uL Normal 4.20-5.80 [facility] Comment on above: Performed By: #### 3 6127, 76511, 5363, 6399, 7600, 496, 927 #### [facility] [place] [address] Cellar Hand: Abdiaziz Shanks MD WBC (Bld) [#/Vol] 4.7 10*3/uL Normal 3.8-10.8 [facility] Comment on above: Performed By: #### 3 6127, 86116, 5363, 6399, 7600, 496, 927 #### [facility] [place] [address] Cellar Hand: Abdiaziz Shanks MD COMPREHENSIVE METABOLIC PANE L W/ANION GAPon 11-14-2024 Albumin [Mass/Vol] 4.4 g/dL Normal 3.6-5.1 [facility] Comment on above: Order Comment: FASTI NG:YES FASTING: YES Performed By: #### 3 6127, 49048, 5363, 6399, 7600, 496, 927 #### [facility] [place] [address] Cellar Hand: Abdiaziz Shanks MD ALP [Catalytic activity/Vol] 67 U/L Normal 35-144 [facility] Comment on above: Order Comment: FASTI NG:YES FASTING: YES Performed By: #### 3 6127, 43394, 5363, 6399, 7600, 496, 927 #### [facility] [place] [address] Cellar Hand: Abdiaziz Shanks MD ALT [Catalytic activity/Vol] 22 U/L Normal 9-46 [facility] Comment on above: Order Comment: FASTI NG:YES FASTING: YES Performed By: #### 3 6127, 44606, 5363, 6399, 7600, 496, 927 #### [facility] [place] [address] Cellar Hand: Abdiaziz Shanks MD AST [Catalytic activity/Vol] 25 U/L Normal 10-35 [facility] Comment on above: Order Comment: FASTI NG:YES FASTING: YES Performed By: #### 3 6127, 15876, 5363, 6399, 7600, 496, 927 #### [facility] [place] [address] Cellar Hand: Abdiaziz Shanks MD Bilirubin [Mass/Vol] 1.0 mg/dL Normal 0.2-1.2 [facility] Comment on above: Order Comment: FASTI NG:YES FASTING: YES Performed By: #### 3 61, 26204, 5363, 6399, 7600, 496, 927 #### [facility] [place] [address] Cellar Hand: bAdiaziz Shanks MD Calcium [Mass/Vol] 9.6 mg/dL Normal 8.6-10.3 [facility] Comment on above: Order Comment: FASTI NG:YES FASTING: YES Performed By: #### 3 6127, 06563, 5363, 6399, 7600, 496, 927 #### [facility] [place] [address] Cellar Hand: Abdiaziz Shanks MD Chloride [Moles/Vol] 104 mmol/L Normal 98-110 [facility] Comment on above: Order Comment: FASTI NG:YES FASTING: YES Performed By: #### 3 6127, 86858, 5363, 6399, 7600, 496, 927 #### [facility] [place] [address] Cellar Hand: Abdiaziz Shanks MD CO2 [Moles/Vol] 26 mmol/L Normal 20-32 [facility] Comment on above: Order Comment: FASTI NG:YES FASTING: YES Performed By: #### 3 6127, 79218, 5363, 6399, 7600, 496, 927 #### [facility] [address] [address] Cellar Hand: Abdiaziz Shanks MD Creatinine [Mass/Vol] 1.05 mg/dL Normal 0.70-1.28 [facility] Comment on above: Order Comment: FASTI NG:YES FASTING: YES Performed By: #### 3 6127, 11403, 5363, 6399, 7600, 496, 927 #### [facility] [place] [address] Cellar Hand: Abdiaziz Shanks MD ELECTROLYTE BALANCE 7 mmol/L (calc) Normal 7-17 [facility] Comment on above: Order Comment: FASTI NG:YES FASTING: YES Performed By: #### 3 6127, 19148, 5363, 6399, 7600, 496, 927 #### [facility] [place] [address] Cellar Hand: Abdiaziz Shanks MD GFR/1.73 sq M.predicted among non-blacks MDRD (S/P/Bld) [Vol rate/Area] 76 mL/min/{1.73_m2} Normal > OR = 60 [facility] Comment on above: Order Comment: FASTI NG:YES FASTING: YES Performed By: #### 3 6127, 32277, 5363, 6399, 7600, 496, 927 #### [facility] [place] [address] Cellar Hand: Abdiaziz Shanks MD Glucose [Mass/Vol] 98 mg/dL Normal 65-99 [facility] Comment on above: Order Comment: FASTI NG:YES FASTING: YES Result Comment: Fasting reference interval Performed By: #### 3 6127, 44797, 5363, 6399, 7600, 496, 927 #### [facility] [place] [address] Cellar Hand: Abdiaziz Shanks MD Potassium [Moles/Vol] 4.7 mmol/L Normal 3.5-5.3 [facility] Comment on above: Order Comment: FASTI NG:YES FASTING: YES Performed By: #### 3 6127, 10386, 5363, 6399, 7600, 496, 927 #### [facility] [place] [address] Cellar Hand: Abdiaziz Shanks MD Protein [Mass/Vol] 6.8 g/dL Normal 6.1-8.1 [facility] Comment on above: Order Comment: FASTI NG:YES FASTING: YES Performed By: #### 3 6127, 41915, 5363, 6399, 7600, 496, 927 #### [facility] [place] [address] Cellar Hand: Abdiaziz Shanks MD Sodium [Moles/Vol] 137 mmol/L Normal 135-146 [facility] Comment on above: Order Comment: FASTI NG:YES FASTING: YES Performed By: #### 3 6127, 91895, 5363, 6399, 7600, 496, 927 #### [facility] [place] [address] Cellar Hand: Abdiaziz Shanks MD Urea nitrogen [Mass/Vol] 18 mg/dL Normal 7-25 [facility] Comment on above: Order Comment: FASTI NG:YES FASTING: YES Performed By: #### 3 6127, 38210, 5363, 6399, 7600, 496, 927 #### [facility] [place] [address] Cellar Hand: Abdiaziz Shanks MD HEMOGLOBIN A1con 11-14-2024 HbA1c (Bld) [Mass fraction] 5.5 % Normal <5.7 [facility] Comment on above: Result Comment: For the purpose of screening for the presence of diabetes: <5.7% Consistent with the absence of diabetes 5.7-6.4% Consistent with increased risk for diabetes (prediabetes) > or =6.5% Consistent with diabetes This assay result is consistent with a decreased risk of diabetes. Currently, no consensus exists regarding use of hemoglobin A1c for diagnosis of diabetes in children. According to [place] Diabetes Association (ADA) guidelines, hemoglobin A1c <7.0% represents optimal control in non- diabetic patients. Different metrics may apply to specific patient populations. Standards of Medical Care in Diabetes(ADA). Performed By: #### 3 6127, 83920, 5363, 6399, 7600, 496, 927 #### [facility] [address], [address] [place] [address] Cellar Hand: Abdiaziz Shanks MD LIPID PANEL, [facility] 06-3 0 Cholesterol [Mass/Vol] 257 mg/dL High <200 [facility] Comment on above: Order Comment: FASTI NG:YES FASTING: YES Performed By: #### 3 6127, 05662, 5363, 6399, 7600, 496, 927 #### [facility] [place] [address] Cellar Hand: Abdiaziz Shanks MD Cholesterol in HDL [Mass/Vol] 53 mg/dL Normal > OR = 40 [facility] Comment on above: Order Comment: FASTI NG:YES FASTING: YES Performed By: #### 3 6127, 65427, 5363, 6399, 7600, 496, 927 #### [facility] [address], [address] [place] [address] Cellar Hand: Abdiaziz Shanks MD Cholesterol in LDL [Mass/Vol] 178 mg/dL High [facility] Comment on above: Order Comment: FASTI NG:YES FASTING: YES Result Comment: Refe rence range: <100 Desirable range <100 mg/dL for primary prevention; <70 mg/dL for patients with CHD or diabetic patients with > or = 2 CHD risk factors. LDL-C is now calculated using the Harshil calculation, which is a validated novel method providing better accuracy than the Friedewald equation in the estimation of LDL-C. Cesar SS et al. HOLLY. 2013;310(19): 2890-3830 (http://education.FabZat.Popego/faq/IKV176) Performed By: #### 3 6127, 07870, 5363, 6399, 7600, 496, 927 #### [facility] [address], [address] [place] [address] Cellar Hand: Abdiaziz Shanks MD Cholesterol.total/ Cholesterol in HDL [Mass ratio] 4.8 {ratio} Normal <5.0 [facility] Comment on above: Order Comment: FASTI NG:YES FASTING: YES Performed By: #### 3 6127, 83988, 5363, 6399, 7600, 496, 927 #### [facility] [address], [address] [place] [address] Cellar Hand: Abdiaziz Shanks MD NON HDL CHOLESTEROL 204 mg/dL (calc) High <130 [facility] Comment on above: Order Comment: FASTI NG:YES FASTING: YES Result Comment: For patients with diabetes plus 1 major ASCVD risk factor, treating to a non-HDL-C goal of <100 mg/dL (LDL-C of <70 mg/dL) is considered a therapeutic option. Performed By: #### 3 6127, 30016, 5363, 6399, 7600, 496, 927 #### [facility] [address], [address] [place] [address] Cellar Hand: Abdiaziz Shnaks MD Triglyceride [Mass/Vol] 126 mg/dL Normal <150 [facility] Comment on above: Order Comment: FASTI NG:YES FASTING: YES Performed By: #### 3 6127, 05973, 5363, 6399, 7600, 496, 927 #### [facility] [place] [address] Cellar Hand: Abdiaziz Shanks MD PSA, TOTALon 11-14-2024 PSA, TOTAL 2.91 ng/mL Normal < OR = 4.00 [facility] Comment on above: Result Comment: The total PSA value from this assay system is standardized against the WHO standard. The test result will be approximately 20% lower when compared to the equimolar-standardized total PSA (Claudette Gunner). Comparison of serial PSA results should be interpreted with this fact in mind. This test was performed using the Siemens chemiluminescent method. Values obtained from different assay methods cannot be used interchangeably. PSA levels, regardless of value, should not be interpreted as absolute evidence of the presence or absence of disease. Performed By: #### 3 8527, 81244, 5363, 6399, 7600, 496, 927 #### [facility] [address], [address] [place] [address] Cellar Hand: Abdiaziz Shanks MD TEST AUTHORIZATIONon 025 CLIENT CONTACT: VICKI LEANDER Normal [facility] Comment on above: Performed By: #### 3 6127, 74731, 5363, 6399, 7600, 496, 927 #### [facility] [address], [address] [place] [address] Cellar Hand: Abdiaziz Shanks MD COMMENT Normal [facility] Comment on above: Result Comment: Plea se have the ordering physician or his or her authorized circulation sales representative sign a copy of this report and promptly return it by faxing it to: [phone] or by returning the form to your english lecturer. Performed By: #### 3 6127, 85087, 5363, 6399, 7600, 496, 927 #### [facility] [address], [address] [place] [address] Cellar Hand: Abdiaziz Shanks MD REPORT ALWAYS MESSAGE SIGNATURE Normal [facility] Comment on above: Result Comment: The laboratory testing on this patient was verbally requested or confirmed by the ordering physician or his or her authorized circulation sales representative after contact with an employee of [employer]. Federal regulations require that we maintain on file written authorization for all laboratory testing. Accordingly we are asking that the ordering physician or his or her authorized circulation sales representative sign a copy of this report and promptly return it to the client service supervisor. Signature: Performed By: #### 3 6127, 51656, 5363, 6399, 7600, 496, 927 #### [facility] [address], [address] [place], [place] [address] Cellar Hand: Abdiaziz Shanks MD TEST CODE: 7600SB Normal [facility] Comment on above: Performed By: #### 3 6127, 05097, 5363, 6399, 7600, 496, 927 #### [facility] [place] [address] Cellar Hand: Abdiaziz Shanks MD TEST NAME: LIPID PANEL, STANDARD Normal [facility] Comment on above: Performed By: #### 3 6127, 77567, 5363, 6399, 7600, 496, 927 #### [facility] [place] [address] Cellar Hand: Abdiaziz Shanks MD TSH W/REFLEX TO FT4on 2024 TSH W/REFLEX TO FT4 2.27 mIU/L Normal 0.40-4.50 [facility] Comment on above: Performed By: #### 3 6127, 11852, 5363, 6399, 7600, 496, 927 #### [facility] [place] [address] Cellar Hand: Abdiaziz Shanks MD VITAMIN B12on 11-14-2024 Cobalamin (Vitamin B12) [Mass/Vol] 696 pg/mL Normal 200-1100 [facility] Comment on above: Performed By: #### 3 6127, 47983, 5363, 6399, 7600, 496, 927 #### [facility] [place] [address] Cellar Hand: Abdiaziz Shanks MD Venous Duplex US, Unilateral on 11-09-2024 Venous Duplex US, Unilateral [facility] [address] [place] [address] Venous Duplex US, Unilateral 11/09/24 0954 MR#: [id number] Acct: [id number] Name: NANCIE PATEL Rep #: [id number] : 1955 69 From: Jose Alejandro Soto MD Attending Dr: SAMEER Burnett Status: REG CLI Ordering Dr: Lizbeth Guevara Date: 11/09/24 Location: [facility] Sex: M C Admitted: Reason For Study Reason For Study: RLE PAIN RIGHT Rt GSV is DILATED and NONCOMPRESSIBLE from approximately 1.26cm distal to SFJ and ending approximately proximal calf. CFV is compressible, spontaneous, phasic, competent [...] report was called and/or faxed to Lizbeth ESTRELLA @ 10:15 @ [phone]. VL/Venous Duplex US, Unilateral Interpretation Summary Acute superficial vein thrombosis noted at saphenofemoral junction and great saphenous vein throughout. Negative for propagation. Deep veins of the right lower extremity are patent and compressible segmentally. There is no evidence of right lower extremity deep vein thrombosis. ___ Ordering Physician: Lizbeth Guevara Referring Physician: Harvinder Mendoza Performed By: Michela Talbert, AGUILAR, RVT 11/09/241718 Date Jose Alejandro Soto MD CC: SAMEER Burnett; Dr. Harvinder Mendoza DO Date Dictated: 11/09/24 0954 Date Transcribed: 11/09/241718 Internal Medicine Nurse Practitioner: Signed Normal [facility] Venous duplex ultrasound rep ortOrdered By: Jose Alejandro Soto on 11-09-2024 US Vein [facility] [address] [place] [address] Venous Duplex US, Unilateral 11/09/24 0954 MR#: [id number] Acct: [id number] Name: NANCIE PATEL Rep #:[id number] : 1955 69 From: Jose Alejandro Cunha Attending Dr: SAMEER Burnett Stat us: REG CLI Ordering Dr: Lizbeth Guevara Date: Location: [facility] Sex: M C Admitted: Reason For Study Reason For Study: RLE PAIN RIGHT Rt GSV is DILATED and NONCOMPRESSIBLE from approximately 1.26cm distal to SFJ and ending approximately proximal calf. CFV is compressible, spontaneous, phasic, competent [...] report was called and/or faxed to Lizbeth ESTRELLA @ 10:15 @ [phone]. VL/Venous Duplex US, Unilateral Interpretation Summary Acute superficial vein thrombosis noted at saphenofemoral junction and great saphenous vein throughout. Negative for propagation. Deep veins of the right lower extremity are patent and compressible segmentally.There is no evidence of right lower extremity deep vein thrombosis. ___ Ordering Physician: Lizbeth Guevara Referring Physician: Harvinder Mendoza Performed By: Michela Talbert RDCS, RVT 11/09/24 1719 Date _ Jose Alejandro Soto MD CC: SAMEER Burnett; Dr. Harvinder Mendoza DO ~ Date Dictated: 11/09/24 0954 Date Transcribed: 11/09/24 1719 Internal Medicine Nurse Practitioner: Signed [facility] Work Phone: Venous duplex ultrasound rep ortOrdered By: Jose Alejandro Soto on 09-29-2024 US Vein [facility] [address] [place] [address] Venous Duplex US, Unilateral 09/28/24 1259 MR#: [id number] Acct: [id number] Name: NANCIE PATEL Rep #:[id number] : 1955 69 From: Jose Alejandro Cunha [...] called and/or faxed to Lizbeth Guevara Vascular SAMEER. VL/Venous Duplex US, Unilateral Interpretation Summary Acute superficial vein thrombosis noted at saphenofemoral junction and great saphenous vein throughout. Deep veins of the right lower extremity are patent and compressible segmentally.There is no evidence of right lower extremity deep vein thrombosis. ___ Ordering Physician: Lizbeth Guevara Referring Physician: Harvinder Mendoza Performed By: Jeromy Paredes, T 09/29/24 0750 Date _ Jose Alejandro Soto MD CC: SAMEER Burnett; Dr. Harvinder Mendoza, DO ~ Date Dictated: 09/28/24 1259 Date Transcribed: 09/29/24 0750 Internal Medicine Nurse Practitioner: Signed [facility] Work Phone: MR/BMS.Son 09-28-2024 MR/BMS.[facility] Vascular Surgery [address] [facility] [place] [address] OFFICE VISIT Date of Service: 09/28/24 MR#: [id number] Acct: [id number] Name: NANCIE PATEL Rep #: [id number] : 1955 Provider: SAMEER Burnett Age/Sex: 69/M Location: [facility] Status: Signed Intake Vital Signs 09/28/24 13:52 [...] years used: 2 HPI HPI HPI: NANCIE PATEL, is a 69 M who presents to [...] veins 08/15/24 and treated conservatively with ASA/NSAIDs/warm compresses/compression/el evation but he had progressive palpable cord into [...] bleeding, No (more content not included)... Normal [facility] Venous Duplex US, Unilateral on 09-28-2024 Venous Duplex US, Unilateral [facility] [address] [place] [address] Venous Duplex US, Unilateral 09/28/24 1259 MR#: [id number] Acct: [id number] Name: NANCIE PATEL Rep #: [id number] : 1955 69 From: Jose Alejandro Soto [...] of right lower extremity deep vein thrombosis. ___ Ordering Physician: Lizbeth Guevara Referring Physician: Harvinder Mendoza Performed By: Jeromy Paredes, T 09/29/24 0750 Date Jose Alejandro Soto MD CC: SAMEER Burnett; Dr. Harvinder Mendoza DO Date Dictated: 09/28/24 1259 Date Transcribed: 09/29/24 0750 Internal Medicine Nurse Practitioner: Signed Normal [facility] MR/BMS.Umesh 09-06-2024 MR/BMS.ROBERTO CARLOS [facility] Vascular Surgery [address] [place] [address] OFFICE VISIT Date of Service: 09/06/24 MR#: [id number] Acct: [id number] Name: NANCEI PATEL Rep #: [id number] : 1955 Provider: SAMEER Burnett Age/Sex: 69/M Location: [facility] Status: Signed Intake Vital Signs 09/06/24 11:34 Weight: 220 lb BP 145/81 H Blood Pressure Location Lt brachial Position Sitting Respiration 16 Pulse 75 Pulse Source Monitor Temp 97.8 F Temp Source Temporal Pulse Oximetry (%) 98 Oxygen Delivery Method room air Intake Visit Reasons: Pain in R Groin Chief Complaint: Pain in R Groin Dosimetrist Required: No Is patient in pain?: Yes Allergies penicillin G Allergy (Severe, Verified 08/12/24 10:05) Rash Have you fallen in the past year?: No PFSH Medical History Hypertension Surgical History H/O basal cell carcinoma excision ( 2024) Family History Other CVA (cerebral vascular accident) Hypertension Social History Smoking Status: Former smoker Tobacco: How many years used: 2 HPI HPI HPI: NANCIE PATEL, is a 69 M who presents to [...] rhythm Skin (more content not included)... Normal [facility] Venous duplex ultrasound rep ortOrdered By: Jose Alejandro Soto on 08-15-2024 US Vein [facility] [address] [place] [address] Venous Duplex US, Unilateral 08/12/24 1050 MR#: [id number] Acct: [id number] Name: NANCIE PATEL Rep #:[id number] : 1955 68 From: Jose Alejandro Cunha [...] saphenous vein appears patent and compressible segmentally. ___ Ordering Physician: Lizbeth Guevara Referring Physician: Lizbeth Guevara Performed By: Joy Braxton, RVT 08/15/24 1325 Date _ Jose Alejandro Soto MD CC: SAMEER Burnett; Dr. Harvinder Mendoza, DO ~ Date Dictated: 08/12/24 1050 Date Transcribed: 08/15/24 1325 Internal Medicine Nurse Practitioner: Signed [facility] Work Phone: MR/CANDIE.Umesh 08-12-2024 MR/BMS.S [facility] Vascular Surgery [address] [facility] [place] [address] OFFICE VISIT Date of Service: 08/12/24 MR#: [id number] Acct: [id number] Name: NANCIE PATEL Rep #: [id number] : 1955 Provider: SAMEER Burnett Age/Sex: 68/M Location: [facility] Status: Signed Intake Vital Signs 08/12/24 10:02 [...] years used: 2 HPI HPI HPI: NANCIE PATEL, is a 68 M who presents to [...] Ears: hear (more content not included)... Normal [facility] Venous Duplex US, Unilateral on 08-12-2024 Venous Duplex US, Unilateral [facility] [address] [place] [address] Venous Duplex US, Unilateral 08/12/24 1050 MR#: [id number] Acct: [id number] Name: NANCIE PATEL Rep #: [id number] : 1955 68 From: Jose Alejandro Soto MD Attending Dr: SAMEER Burnett Status: REG CLI Ordering Dr: Lizbeth Guevara Date: 08/12/24 Location: [facility] Sex: M C Admitted: Reason For Study [...] saphenous vein appears patent and compressible segmentally. ___ Ordering Physician: Lizbeth Guevara Referring Physician: Lizbeth Guevara Performed By: Joy Braxton, RVT 08/15/24 1325 Date Jose Alejandro Soto MD CC: SAMEER Burnett; Dr. Harvinder Mendoza DO Date Dictated: 08/12/24 1050 Date Transcribed: 08/15/24 1325 Internal Medicine Nurse Practitioner: Signed Normal [facility] Venous Duplex US - Neeraj Extre [facility] 07-25-2024 Venous Duplex US - Neeraj Extrem [facility] [address] 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 Positive for reflux in the left saphenofemoral junction, great saphenous vein throughout, accessory saphenous vein proximal thigh, accessory saphenous vein at knee ___ Ordering Physician: Lizbeth Guevara Referring Physician: Harvinder Mendoza DO Performed By: Jaylene Le RVT and Student 07/25/24 1603 Date Jose Alejandro Soto MD CC: SAMEER Burnett; Dr. Harvinder Mendoza DO Date Dictated: 07/25/24918 Date Transcribed: 07/25/241602 Internal Medicine Nurse Practitioner: Signed Normal [facility] Venous duplex ultrasound rep ortOrdered By: Jose Alejandro Soto on 07-25-2024 US Vein [facility] [address] [place] [address] Venous Duplex US - Neeraj Extrem 07/25/24918 MR#: [id number] Acct: [id number] Name: NANCIE PATEL Rep #:[id number] : 1955 68 From: Jose Alejandro Cunha [...] knee isINCOMPETENT for greater than 0.5 GSV theology professor at proximal calf measuring 32cm from seconds [...] saphenous vein in calf, and proximal calf theology professor. Positive for reflux in the left saphenofemoral junction, great saphenous vein throughout, accessory saphenous vein proximal thigh, accessory saphenous vein at knee ___ Ordering Physician: Lizbeth Guevara Referring Physician: Harvinder Mendoza DO Performed By: Jaylene Le RVT and Student 07/25/24 1603 Date _ Jose Alejandro Soto MD CC: SAMEER Burnett; Dr. Harvinder Mendoza DO ~ Date Dictated: 07/25/24918 Date Transcribed: 07/25/24 160 Internal Medicine Nurse Practitioner: Signed [facility] Work Phone: MR/Avi 06-29-2024 MR/BMSBrettEdgar [facility] [place] [facility] Surgery [address] [place] [address] OFFICE VISIT Date of Service: 06/29/24 MR#: [id number] Acct: [id number] Name: NANCIE PATEL Rep #: [id number] : 1955 Provider: SAMEER Burnett Age/Sex: 68/M Location: [facility] Status: Signed Intake Vital Signs 06/29/24 13:16 [...] years used: 2 HPI HPI HPI: NANCIE PATEL, is a 68 M who presents to [...] appearing, comfortable (more content not included)... Normal [facility] DUPLEX AAA SCREENINGon DUPLEX AAA SCREENING Patient Info Name: NANCIE PATEL Age: 68 years : 1955 Gender: Male Exam Date: 06/09/2024 7:38 AM Patient Status: Outpatient Prosthetic Makeup Designer: Fang Dominguez, FANNIE, RDMS, RVT Referring Physician: HARVINDER MENDOZA ; Indications - former smoker, screen for AAA Z13.6 - Encounter for screening for cardiovascular disorders Procedure Description 11219 Ultrasound, abdominal aorta, real time with image [...] ThuJun 09, 2024 10:19:06 AM EST Normal [facility] Basic metabolic 2000 panelon 04-11-2024 Anion gap [Moles/Vol] 11 mmol/L Normal 10-20 [facility] Comment on above: Performed By: #### 2 857-1 #### ARAVIND AZAR ([id number]) [facility] ([facility]) [address] [place] [address] Calcium [Mass/Vol] 9.8 mg/dL Normal 8.6-10.[address] [facility] Comment on above: Performed By: #### 2 857-1 #### ARAVIND AZAR ([id number]) [facility] ([facility]) [address] [place] [address] Chloride [Moles/Vol] 103 mmol/L Normal 98-107 [facility] Comment on above: Performed By: #### 2 857-1 #### ARAVIND AZAR ([id number]) [facility] ([facility]) [address] [place] [address]103 CO2 [Moles/Vol] 30 mmol/L Normal 21-32 [facility] Comment on above: Performed By: #### 2 857-1 #### ARAVIND AZAR ([id number]) [facility] ([facility]) [address] [place] [address] Creatinine [Mass/Vol] 0.90 mg/dL Normal 0.50-1.30 [facility] Comment on above: Performed By: #### 2 857-1 #### ARAVIND AZAR ([id number]) [facility] ([facility]) [address] [place] [address] GFR/1.73 sq M.predicted MDRD (S/P/Bld) [Vol rate/Area] mL/min/{1.73_m2} Normal >60 [facility] Comment on above: Result Comment: Calc ulations of estimated GFR are performed using the 2020 CKD-EPI Study Refit equation without the race variable for the IDMS-Traceable creatinine methods. https://jasn.asnjournals.org/content/early/ASN.723830680 8 Performed By: #### 2 857-1 #### ARAVIND AZAR ([id number]) [facility] ([facility]) [address] [place] [address] 57997 Glucose [Mass/Vol] 93 mg/dL Normal 74-[address] [facility] Comment on above: Performed By: #### 2 857-1 #### ARAVIND AZAR ([id number]) [facility] ([facility]) [address] [place] [address] 10061 Potassium [Moles/Vol] 4.7 mmol/L Normal 3.5-5.3 [facility] Comment on above: Performed By: #### 2 857-1 #### ARAVIND AZAR ([id number]) [facility] ([facility]) [address] [place] [address] 73145 Sodium [Moles/Vol] 139 mmol/L Normal 136-[address] [facility] Comment on above: Performed By: #### 2 857-1 #### ARAVIND AZAR ([id number]) [facility] ([facility]) [address] [place] [address] 87448 Urea nitrogen [Mass/Vol] 13 mg/dL Normal 6-23 [facility] Comment on above: Performed By: #### 2 857-1 #### ARAVIND AZAR ([id number]) [facility] ([facility]) [address] [place] [address] 68806 Creatine kinaseon 04-11-2024 CK [Catalytic activity/Vol] 482 U/L High 0-325 [facility] Comment on above: Performed By: #### 2 857-1 #### ARAVIND AZAR ([id number]) [facility] ([facility]) [facility] [place] [address] Lipid 1996 panelon 4 Cholesterol [Mass/Vol] 235 mg/dL High 0-199 [facility] Comment on above: Result Comment: Age [...] By: #### 2 857-1 #### ARAVIND AZAR ([id number]) [facility] ([facility]) [address] [place] [address] 10154 Cholesterol in HDL [Mass/Vol] 58.0 mg/dL Normal [facility] Comment on above: Result Comment: Age Very Low Low Normal High 0-19 Y < 35 < 40 40-45 ---- 20-24 Y ---- < 40 >45 ---- >24 Y ---- < 40 40-60 >60 Performed By: #### 2 857-1 #### ARAVIND AZAR ([id number]) [facility] ([facility]) [address] [place] [address] 24639 Cholesterol in LDL [Mass/Vol] 162 mg/dL High <=99 [facility] Comment on above: Result Comment: Near Borderline AGE Desirable Optimal High High Very High 0-19 Y 0 - 109 --- 110-129 >/= 130 ---- 20-24 Y 0 - 119 --- 120-159 >/= 160 ---- >24 Y 0 - 99 100-129 130-159 160-189 >/=190 Performed By: #### 2 857-1 #### ARAVIND AZAR ([id number]) [facility] ([facility]) [address] [place] [address] 56883 Cholesterol in VLDL [Mass/Vol] 15 mg/dL Normal 0-40 [facility] Comment on above: Performed By: #### 2 857-1 #### ARAVIND AZAR ([id number]) [facility] ([facility]) [address] [place] [address] 67516 CHOLESTEROL/HDL RATIO 4.1 Normal [facility] Comment on above: Result Comment: Ref Values Desirable < 3.4 High Risk > 5.0 Performed By: #### 2 857-1 #### ARAVIND AZAR ([id number]) [facility] ([facility]) [address] [place] [address] 05846 NON HDL CHOLESTEROL 177 mg/dL High 0-149 [facility] Comment on above: Result Comment: Age Desirable Borderline High High Very High 0-19 Y 0 - 119 120 - 144 >/= 145 >/= 160 20-24 Y 0 - 149 150 - 189 >/= 190 ---- >24 Y 30 mg/dL above LDL Cholesterol goal Performed By: #### 2 857-1 #### ARAVIND AZAR ([id number]) [facility] ([facility]) [address] [place] [address] 35035 Triglyceride [Mass/Vol] 75 mg/dL Normal 0-149 [facility] Comment on above: Result Comment: Age [...] By: #### 2 857-1 #### ARAVIND AZAR ([id number]) [facility] ([facility]) [address] [place] [address] Cobalaminson 11-30-2023 Cobalamin (Vitamin B12) [Mass/Vol] 263 pg/mL Normal 211-911 [facility] Comment on above: Performed By: #### 2 857-1 #### ARAVIND AZAR ([id number]) [facility] ([facility]) [address] [place] [address] 78613 Phosphateon 11-30-2023 Phosphate [Mass/Vol] 2.9 mg/dL Normal 2.5-4.9 [facility] Comment on above: Result Comment: The performance characteristics of phosphorus testing in heparinized plasma have been validated by the individual laboratory site where testing is performed. Testing on heparinized plasma is not approved by the FDA; however, such approval is not necessary. Performed By: #### 2 857-1 #### ARAVIND AZAR ([id number]) [facility] ([facility]) [address] [place] [address] 53260 Creatine kinaseon 11-18-2023 CK [Catalytic activity/Vol] 651 U/L High 0-325 [facility] Comment on above: Performed By: #### 2 857-1 #### ARAVIND AZAR ([id number]) [facility] ([facility]) [address] [place] [address] 66953 Creatine kinaseon 10-19-2023 CK [Catalytic activity/Vol] 738 U/L High 0-325 [facility] Comment on above: Performed By: #### 2 857-1 #### ARAVIND AZAR ([id number]) [facility] ([facility]) [address] [place] [address] 17818 XR CERVICAL SPINE 2-3 VIEWSo n 10-19-2023 XR CERVICAL SPINE 2-3 VIEWS Interpreted By: Yenny Perez, STUDY: XR CERVICAL SPINE 2-3 VIEWS; 10/19/2023 8:48 am 3 views. INDICATION: Signs/Symptoms:neck pain and bilateral shoulder pain. COMPARISON: None. ACCESSION NUMBER(S): [id number] ORDERING CLINICIAN: SAAN DOYLE FINDINGS: There is no fracture or prevertebral [...] Yenny Perez 10/20/2023 8:39 AM Dictation workstation: [id number] XR SHOULDER LEFT 2+ VIEWSon 10-19-2023 XR SHOULDER LEFT 2+ VIEWS Interpreted By: Yenny Perez, STUDY: XR SHOULDER LEFT 2+ VIEWS; ; 10/19/2023 8:48 am INDICATION: Signs/Symptoms:pain. COMPARISON: None. ACCESSION NUMBER(S): [id number] ORDERING CLINICIAN: SANA DOYLE FINDINGS: Five views left shoulder: There is no fracture or dislocation. There is a degenerative change of the left acromioclavicular joint with mild spurring superiorly. IMPRESSION: Mild left acromioclavicular joint osteoarthritis. MACRO: None Signed by: Yenny Perez 10/20/2023 8:40 AM Dictation workstation: [id number] [facility] XR SHOULDER RIGHT 2+ VIEWSon 10-19-2023 XR SHOULDER RIGHT 2+ VIEWS Interpreted By: Yenny Perez, STUDY: XR SHOULDER RIGHT 2+ VIEWS; ; 10/19/2023 8:47 am INDICATION: Signs/Symptoms:pain 6 months. COMPARISON: None. ACCESSION NUMBER(S): [id number] ORDERING CLINICIAN: SANA DOYLE FINDINGS: Five views right shoulder: There is no fracture or dislocation. There is degenerative change of the right acromioclavicular joint with mild spurring superiorly and inferiorly. IMPRESSION: Mild right acromioclavicular joint osteoarthritis. MACRO: None Signed by: Yenny Perez 10/20/2023 8:40 AM Dictation workstation: [id number] [facility] B. burgdorferi DNA ANDRES+probe Ql (Unsp spec)on 09-14-2023 Specimen source Nom (Unsp spec) Blood [facility] Comment on above: Performed By: #### 4 991-6 #### [facility] [email or web address] (HERB) ([id number]) [address] [place] [address] Borrelia burgdorferi DNAon 0 09-14-2023 B. burgdorferi DNA ANDRES+probe Ql (Unsp spec) Not detected Normal [facility] Comment on above: Result Comment: NOT DETECTED - A negative result does not rule out the presence of PCR inhibitors in the patient specimen or assay specific nucleic acid in concentrations below the level of detection by the assay. Blood and CSF specimens have poor clinical sensitivity for detection of Borrelia burgdorferi by PCR. INTERPRETIVE INFORMATION: Borrelia Species DNA Detection by PCR This test was developed and its performance characteristics determined by [facility]. It has not been cleared or approved by the US Food and Drug Administration. This test was performed in a CLIA certified laboratory and is intended for clinical purposes. Performed By: [facility] [address] [place] [address] Control Systems Designer: Danny Koo MD, PhD CLIA Number: [id number] Performed By: #### 4 991-6 #### [facility] (HERB) ([id number]) [address] [place] [address] C reactive proteinon 024 CRP [Mass/Vol] 0.11 mg/dL Normal <1.00 [facility] Comment on above: Performed By: #### 1 988-5 #### ARAVIND AZAR ([id number]) [facility] ([facility]) [address] [place] [address] 93682 CBC W Auto Differential pane l (Bld)on 09-14-2023 Basophils (Bld) [#/Vol] 0.04 x10*3/uL Normal 0.00-0.10 [facility] Comment on above: Performed By: #### 5 7021-8 #### ARAVIND AZAR ([id number]) [facility] ([facility]) [address] [place] [address] 22721 Basophils/100 WBC (Bld) 0.9 % Normal 0.0-2.0 [facility] Comment on above: Performed By: #### 5 7021-8 #### ARAVIND AZAR ([id number]) [facility] ([facility]) [address] [place] [address] 41289 Eosinophils (Bld) [#/Vol] 0.31 x10*3/uL Normal 0.00-0.70 [facility] Comment on above: Performed By: #### 5 7021-8 #### ARAVIND AZAR ([id number]) [facility] ([facility]) [address] [place] [address] 46469 Eosinophils/100 WBC (Bld) 6.8 % Normal 0.0-6.0 [facility] Comment on above: Performed By: #### 7021-8 #### ARAVIND AZAR ([id number]) [facility] ([facility]) [address] [place] [address] 65064 Erythrocyte distribution width (RBC) [Ratio] 12.1 % Normal 11.5-14.5 [facility] Comment on above: Performed By: #### 5 7021-8 #### ARAVIND AZAR ([id number]) [facility] ([facility]) [address] [place] [address] 01842 Hematocrit (Bld) [Volume fraction] 45.9 % Normal 41.0-52.0 [facility] Comment on above: Performed By: #### 5 7021-8 #### ARAVIND AZAR ([id number]) [facility] ([facility]) [address] [place] [address] 51643 Hemoglobin (Bld) [Mass/Vol] 15.0 g/dL Normal 13.5-17.5 [facility] Comment on above: Performed By: #### 5 7021-8 #### ARAVIND AZAR ([id number]) [facility] ([facility]) [address] [place] [address] 62201 Immature granulocytes (Bld) [#/Vol] 0.01 x10*3/uL Normal 0.00-0.70 [facility] Comment on above: Performed By: #### 5 7021-8 #### ARAVIND AZAR ([id number]) [facility] ([facility]) [address] [place] [address] 43178 Immature granulocytes/100 WBC (Bld) 0.2 % Normal 0.0-0.9 [facility] Comment on above: Result Comment: Joellen ture Granulocyte Count (IG) includes promyelocytes, myelocytes and metamyelocytes but does not include bands. Percent differential counts (%) should be interpreted in the context of the absolute cell counts (cells/UL). Performed By: #### 5 7021-8 #### ARAVIND AZAR ([id number]) [facility] ([facility]) [address] [place] [address] Lymphocytes (Bld) [#/Vol] 1.32 x10*3/uL Normal 1.20-4.80 [facility] Comment on above: Performed By: #### 5 7021-8 #### ARAVIND AZAR ([id number]) [facility] ([facility]) [address] [place] [address] 64361 Lymphocytes/100 WBC (Bld) 29.1 % Normal 13.0-44.0 [facility] Comment on above: Performed By: #### 5 7021-8 #### ARAVIND AZAR ([id number]) [facility] ([facility]) [address] [place] [address] 61757 MCH (RBC) [Entitic mass] 31.5 pg Normal 26.0-34.0 [facility] Comment on above: Performed By: #### 5 7021-8 #### ARAVIND AZAR ([id number]) [facility] ([facility]) [address] [place] [address] 24163 MCHC (RBC) [Mass/Vol] 32.7 g/dL Normal 32.0-36.0 [facility] Comment on above: Performed By: #### 5 7021-8 #### ARAVIND AZAR ([id number]) [facility] ([facility]) [address] [place] [address] 05956 MCV (RBC) [Entitic vol] 96 fL Normal 80-100 [facility] Comment on above: Performed By: #### 5 7021-8 #### ARAVIND AZAR ([id number]) [facility] ([facility]) [address] [place] [address] 82964 Monocytes (Bld) [#/Vol] 0.49 x10*3/uL Normal 0.10-1.00 [facility] Comment on above: Performed By: #### 5 7021-8 #### ARAVIND AZAR ([id number]) [facility] ([facility]) [address] [place] [address] 10344 Monocytes/100 WBC (Bld) 10.8 % Normal 2.0-10.0 [facility] Comment on above: Performed By: #### 5 7021-8 #### ARAVIND AZAR ([id number]) [facility] ([facility]) [address] [place] [address] 22361 Neutrophils (Bld) [#/Vol] 2.36 x10*3/uL Normal 1.20-7.70 [facility] Comment on above: Result Comment: Perc ent differential counts (%) should be interpreted in the context of the absolute cell counts (cells/uL). Performed By: #### 5 7021-8 #### ARAVIND AZAR ([id number]) [facility] ([facility]) [address] [place] [address] 83107 Neutrophils/100 WBC (Bld) 52.2 % Normal 40.0-80.0 [facility] Comment on above: Performed By: #### 5 7021-8 #### ARAVIND AZAR ([id number]) [facility] ([facility]) [address] [place] [address] 61860 Nucleated RBC/100 WBC (Bld) [Ratio] 0.0 /100 WBCs Normal 0.0-0.0 [facility] Comment on above: Performed By: #### 5 7021-8 #### ARAVIND AZAR ([id number]) [facility] ([facility]) [address] [place] [address] 83219 Platelets (Bld) [#/Vol] 279 x10*3/uL Normal 150-450 [facility] Comment on above: Performed By: #### 5 7021-8 #### ARAVIND AZAR ([id number]) [facility] ([facility]) [address] [place] [address] 12151 RBC (Bld) [#/Vol] 4.76 x10*6/uL Normal 4.50-5.90 [facility] Comment on above: Performed By: #### 5 7021-8 #### ARAVIND AZAR ([id number]) [facility] ([facility]) [address] [place] [address] 72643 WBC (Bld) [#/Vol] 4.5 x10*3/uL Normal 4.4-11.3 [facility] Comment on above: Performed By: #### 5 7021-8 #### ARAVIND AZAR ([id number]) [facility] ([facility]) [address] [place] [address] 65193 Creatine kinaseon 09-14-2023 CK [Catalytic activity/Vol] 564 U/L High 0-325 [facility] Comment on above: Performed By: #### 2 157-6 #### ARAVIND AZAR ([id number]) [facility] ([facility]) [address] [place] [address] 95833 ESR Westergren method (Bld) [Velocity]on 09-14-2023 ESR (Bld) [Velocity] 1 mm/h Normal 0-20 [facility] Comment on above: Performed By: #### 4 537-7 #### ARAVIND AZAR ([id number]) [facility] ([facility]) [address] [place] [address] 65687 Nuclear Abon 09-14-2023 Nuclear Ab Hep2 substrate Ql (S) Negative Normal Negative [facility] Comment on above: Result Comment: The Antinuclear Antibody (JOSE) test was performed using indirect immunofluorescence assay with HEp-2 cells slide. Performed By: #### 5 9069-5 #### KEVIN Gao ([id number]) [facility] ([facility]) [address] [place] [address] 94375 Rheumatoid factoron 09-14-19 24 Rheumatoid factor Nephelometry Qn (S) <10 Normal 0-15 [facility] Comment on above: Performed By: #### 1 5205-8 #### KEVIN Gao ([id number]) [facility] ([facility]) [address] [place] [address] 70425 Basic metabolic 2000 panelon 08-14-2023 Anion gap [Moles/Vol] 15 mmol/L Normal 10-20 [facility] Comment on above: Performed By: #### 2 4321-2 #### ARAVIND AZAR ([id number]) [facility] ([facility]) [address] [place] [address] 50468 Calcium [Mass/Vol] 9.6 mg/dL Normal 8.6-10.[address] [facility] Comment on above: Performed By: #### 2 4321-2 #### ARAVIND AZAR ([id number]) [facility] ([facility]) [address] [place] [address] 83891 Chloride [Moles/Vol] 101 mmol/L Normal 98-107 [facility] Comment on above: Performed By: #### 2 4321-2 #### ARAVIND AZAR ([id number]) [facility] ([facility]) [address] [place] [address] 42703 CO2 [Moles/Vol] 26 mmol/L Normal 21-32 [facility] Comment on above: Performed By: #### 2 4321-2 #### ARAVIND AZAR ([id number]) [facility] ([facility]) [address] [place] [address] 85093 Creatinine [Mass/Vol] 0.95 mg/dL Normal 0.50-1.30 [facility] Comment on above: Performed By: #### 2 4321-2 #### ARAVIND AZAR ([id number]) [facility] ([facility]) [address] [place] [address] 55873 Glomerular filtration rate/1.73 sq M.predicted 87 mL/min/1.73m*2 Normal >60 [facility] Comment on above: Result Comment: Calc ulations of estimated GFR are performed using the 2020 CKD-EPI Study Refit equation without the race variable for the IDMS-Traceable creatinine methods. https://jasn.asnjournals.org/content//ASN.047495663 8 Performed By: #### 2 4321-2 #### ARAVIND AZAR ([id number]) [facility] ([facility]) [address] [place] [address] Glucose [Mass/Vol] 73 mg/dL Low 74-[address] [facility] Comment on above: Performed By: #### 2 4321-2 #### ARAVIND AZAR ([id number]) [facility] ([facility]) [address] [place] [address] 68584 Potassium [Moles/Vol] 4.3 mmol/L Normal 3.5-5.3 [facility] Comment on above: Performed By: #### 2 4321-2 #### ARAVIND AZAR ([id number]) [facility] ([facility]) [address] [place] [address] 52879 Sodium [Moles/Vol] 138 mmol/L Normal 136-[address] [facility] Comment on above: Performed By: #### 2 4321-2 #### ARAVIND AZAR ([id number]) [facility] ([facility]) [address] [place] [address] 62558 Urea nitrogen [Mass/Vol] 18 mg/dL Normal 6-23 [facility] Comment on above: Performed By: #### 2 4321-2 #### ARAVIND AZAR ([id number]) [facility] ([facility]) [address] [place] [address] 19595 HbA1c (Bld) [Mass fraction]o n 08-14-2023 Average glucose Estimated from glycated hemoglobin (Bld) [Mass/Vol] 108 mg/dL Normal Not Established [facility] Comment on above: Order Comment: Diagn osis of Diabetes-Adults Non-Diabetic: < or = 5.6% Increased risk for developing diabetes: 5.7-6.4% Diagnostic of diabetes: > or = 6.5% Monitoring of Diabetes Age (y)....................... Therapeutic Goal (%) Adults: >18.........................<7.0 Pediatrics: 13-18...................<7.5 Pediatrics: 7-12....................<8.0 Pediatrics: 0-6..................... 7.5-8.5 [place] [employer]. Diabetes Care 33(S1), May 2009 Performed By: #### 4 548-4 #### ARAVIND AZAR ([id number]) [facility] ([facility]) [address] [place], [place] [address] Hemoglobin A1c/Hemoglobin.to frederick 08-14-2023 HbA1c (Bld) [Mass fraction] 5.4 % Normal see below [facility] Comment on above: Order Comment: Diagn osis of Diabetes-Adults Non-Diabetic: < or = 5.6% Increased risk for developing diabetes: 5.7-6.4% Diagnostic of diabetes: > or = 6.5% Monitoring of Diabetes Age (y)....................... Therapeutic Goal (%) Adults: >18.........................<7.0 Pediatrics: 13-18...................<7.5 Pediatrics: 7-12....................<8.0 Pediatrics: 0-6..................... 7.5-8.5 [place] [employer]. Diabetes Care 33(S1), May 2009 Performed By: #### 4 548-4 #### ARAVIND AZAR ([id number]) [facility] ([facility]) [address] [place] [address] 58864 Prostate specific Agon 08-13 Prostate specific Ag [Mass/Vol] 3.29 ng/mL Normal <=4.00 [facility] Comment on above: Order Comment: The F DA requires that the method used for PSA assay be reported to the physician. Values obtained with different assay methods must not be used interchangeably. This test was performed at [facility] using the [employer] Medical[employer] PSA assay is a two-site immunoenzymatic sandwich assay. The assay is approved for measurement of prostate-specific antigen (PSA)in serum and may be used in conjunction with a digital rectal examination in men 50 years and older as an aid in detection of prostate cancer. 1-Tibvq-fwbvwbure inhibitors (e.g. Proscar, Finasteride, Avodart, Dutasteride and Charlee) for the treatment of BPH have been shown to lower PSA levels by an average of 50% after 6 months of treatment. Performed By: #### 2 857-1 #### NAZARIO DOE ([id number]) [facility] ([facility]) [address] [place], [place] [address] BASIC METABOLIC PANELon 07-0 Anion gap [Moles/Vol] 10 mmol/L Normal 10 - 20 [facility] Comment on above: Performed By: #### B MP #### [address] [address] Calcium [Mass/Vol] 10.0 mg/dL Normal 8.6 - 10.3 [facility] Comment on above: Performed By: #### B MP #### [address] [address] Chloride [Moles/Vol] 102 mmol/L Normal 98 - 107 [facility] Comment on above: Performed By: #### B MP #### [address] [address] Creatinine [Mass/Vol] 0.89 mg/dL Normal 0.50 - 1.30 [facility] Comment on above: Performed By: #### B MP #### [address] [address] eGFR MALE >90 Normal >90 [facility] Comment on above: Result Comment: CALC ULATIONS OF ESTIMATED GFR ARE PERFORMED USING THE 2020 CKD-EPI STUDY REFIT EQUATION WITHOUT THE RACE VARIABLE FOR THE IDMS-TRACEABLE CREATININE METHODS. https://jasn.asnjournals.org/content//ASN.015489909 8 Performed By: #### B MP #### [address] [address] Glucose [Mass/Vol] 98 mg/dL Normal 74 - 99 [facility] Comment on above: Performed By: #### B MP #### [address] [address] HCO3 (Bld) [Moles/Vol] 29 mmol/L Normal 21 - 32 [facility] Comment on above: Performed By: #### B MP #### [address] [address] Potassium [Moles/Vol] 4.4 mmol/L Normal 3.5 - 5.3 [facility] Comment on above: Performed By: #### B MP #### [address] [address] Sodium [Moles/Vol] 137 mmol/L Normal 136 - 145 [facility] Comment on above: Performed By: #### B MP #### [address] [address] Urea nitrogen [Mass/Vol] 19 mg/dL Normal 6 - 23 [facility] Comment on above: Performed By: #### B MP #### [address] [address] HEMOGLOBIN A1Con 11-17-2022 Glucose [Mass/Vol] 108 mg/dL Normal [facility] Comment on above: Performed By: #### H BA1E #### [address] [address] HbA1c (Bld) [Mass fraction] 5.4 % Normal [facility] Comment on above: Result Comment: Diag nosis of Diabetes-Adults Non-Diabetic: < or = 5.6% Increased risk for developing diabetes: 5.7-6.4% Diagnostic of diabetes: > or = 6.5% . Monitoring of Diabetes Age (y) Therapeutic Goal (%) Adults: >18 <7.0 Pediatrics: 13-18 <7.5 7-12 <8.0 0- 6 7.5-8.5 [place] [employer]. Diabetes Care 33(S1), May 2009. Performed By: #### H BA1E #### [address] [place] [address] Hemoglobin A1Con 11-17-2022 Glucose [Mass/Vol] 108 mg/dL MP-Uro logy-[place] Work Phone: HbA1c (Bld) [Mass fraction] 5.4 % XB-Rumcspg-Vn [place] Work Phone: Comment on above: SOURCE: Diagnosis of Diabetes-Adults Non-Diabetic: < or = 5.6% Increased risk for developing diabetes: 5.7-6.4% Diagnostic of diabetes: > or = 6.5%. Monitoring of Diabetes Age (y) Therapeutic Goal (%) Adults: >18 <7.0 Pediatrics: 13-18 <7.5 7-12 <8.0 0- 6 7.5-8.5 [place] [employer]. Diabetes Care 33(S1), May 2009. Laboratory - Chemistry and C hemistry - challengeon 11-17-2022 Anion gap [Moles/Vol] 10 mmol/L 10 - 20 AT-Giavvvt-Rj [place] Work Phone: Calcium [Mass/Vol] 10.0 mg/dL 8.6 - 10.3 MP-Uro logy-[place] Work Phone: Chloride [Moles/Vol] 102 mmol/L 98 - 107 HH-Yftuxnh-Lh [place] Work Phone: CO2 [Moles/Vol] 29 mmol/L 21 - 32 MP-Urolog y-[place] Work Phone: Creatinine [Mass/Vol] 0.89 mg/dL See Below EJ-Ovkvori-Hw [place] Work Phone: Comment on above: Reference Range: 0.5 0 - 1.30 Glucose [Mass/Vol] 98 mg/dL 74 - 99 MP-Uro logy-[place] Work Phone: Comment on above: SOURCE: Potassium [Moles/Vol] 4.4 mmol/L 3.5 - 5.3 QL-Atczhzb-Hx [place] Work Phone: Sodium [Moles/Vol] 137 mmol/L 136 - 145 MP-Uro logy-[place] Work Phone: Urea nitrogen [Mass/Vol] 19 mg/dL 6 - 23 RH-Tekzadr-Aw [place] Work Phone: No Panel Informationon 11-17 >90 >90 FN-Sqaivsn-[place] Work Phone: Comment on above: CALCULATIONS OF CHARLEY MATED GFR ARE PERFORMED USING THE 2020 CKD-EPI STUDY REFIT EQUATION WITHOUT THE RACE VARIABLE FOR THE IDMS-TRACEABLE CREATININE METHODS.https://jasn.asnjournals.org/content/early/ASN.2 675079962 TSHon 11-17-2022 TSH Qn 2.63 m[IU]/L Normal 0.44 - 3.98 [facility] Comment on above: Result Comment: TSH testing is performed using different testing methodology at [facility] than [facility]. Direct result comparisons should only be made within the same method. Performed By: #### T SH2 #### [place] [address] Lab Specimen Source Normal [facility] Comment on above: Performed By: #### T SH2 #### [place] [address] Performed By: #### H BA1E #### [place] [address] Performed By: #### B MP #### [place] [address] TSH - Thyroid Stimulating Ho rmone, Serumon 11-17-2022 TSH Qn 2.63 m[IU]/L See Below ML-Qjswqbs-O s [place] Work Phone: Comment on above: SOURCE: Reference Ra nge: 0.44 - 3.98 TSH testing is performed using different testing methodology at [facility] than at other [facility]. Direct result comparisons should only be made within the same method. IO UA (automated w/o microsc opy)on 11-10-2022 Protein (U) [Mass/Vol] Negative YH-Adkiuvl-[place]v [place] Work Phone: IO UA (automated w/o microscopy) Negative AF-Pwywnxu-Ys [place] Work Phone: IO UA (automated w/o microscopy) Normal (0.2-1.0 mg/dl) MP-Urolog y-[place] Work Phone: IO UA (automated w/o microscopy) 5.5 1 QR-Utodvxw-Vb [place] Work Phone: IO UA (automated w/o microscopy) 1.025 1 NB-Vdrwvhq-Vx [place] Work Phone: IO UA (automated w/o microscopy) Clear UP-Jvgxoju-Uu [place] Work Phone: IO UA (automated w/o microscopy) Yellow LW-Bwnnzip-Rc [place] Work Phone: Office Visit (Urology)on Follow-up visit [...] tablet daily Multi-Vitamins TABSTAKE 1 TABLET DAILY. Palmetto 3 CAPSTAKE DIRECTED. Vitamin C TABSTAKE 1 TABLET DAILY. Vitals Vital Signs Recorded: 10Nov2022 07:44AM Heart Rate64 Vpaudhle222 Wiopmfdqh23 Vsvucj537 lb 6 oz BMI Lkyetvkxof38.82 kg/m2 BSA Calculated2.09 Tobacco Useb) No PHQ-2 [...] normal Results/Data IO UA (automated w/o microscopy)10Nov2022 07:50AMPeck Jaspal WALKER Test NameResultFlagReference IO ColorYellow IO AppearanceClear IO Glucose - UrineNegative IO BilirubinNegative IO KetonesNegative IO Specific Gravity1.025 IO BloodNegative IO pH5.5 IO Protein, UrineNegative IO Urobilinogen Normal (0.2-1.0 mg/dl) IO Nitrite, UrineNegative IO LeukocytesNegative Signatures Electronically signed by : Jaspal Cueto II, MD; Nov 10 2022 (more content not included)... Normal [employer] Tobacco Screening.on 023 Fall risk assessment a) No falls within the last year CE-Ogkdqsh-Cy [place] Work Phone: Tobacco use status CPHS b) No ES-Qlspoee-Da h[place] Work Phone: Tobacco Screening. Yes MP-Uro logy-[place] Work Phone: BASIC METABOLIC PANELon 06-2 Anion gap [Moles/Vol] 11 mmol/L Normal 10 - 20 [facility] Comment on above: Performed By: #### B MP #### [address] [address] Calcium [Mass/Vol] 9.5 mg/dL Normal 8.6 - 10.3 [facility] [place] Comment on above: Performed By: #### B MP #### [address] [address] Chloride [Moles/Vol] 103 mmol/L Normal 98 - 107 [facility] Comment on above: Performed By: #### B MP #### [address] [address] Creatinine [Mass/Vol] 0.79 mg/dL Normal 0.50 - 1.30 [facility] Comment on above: Performed By: #### B MP #### [address] [address] eGFR MALE >90 Normal >90 [facility] Comment on above: Result Comment: CALC ULATIONS OF ESTIMATED GFR ARE PERFORMED USING THE 2020 CKD-EPI STUDY REFIT EQUATION WITHOUT THE RACE VARIABLE FOR THE IDMS-TRACEABLE CREATININE METHODS. https://jasn.asnjournals.org/content//ASN.281538540 8 Performed By: #### B MP #### [address] [address] Glucose [Mass/Vol] 109 mg/dL High 74 - 99 [facility] [place] Comment on above: Performed By: #### B MP #### [address] [address] HCO3 (Bld) [Moles/Vol] 28 mmol/L Normal 21 - 32 [facility] Comment on above: Performed By: #### B MP #### [address] [address] Potassium [Moles/Vol] 4.3 mmol/L Normal 3.5 - 5.3 [facility] Comment on above: Performed By: #### B MP #### [address] [address] Sodium [Moles/Vol] 138 mmol/L Normal 136 - 145 [facility] [place] Comment on above: Performed By: #### B MP #### [address] [address] Urea nitrogen [Mass/Vol] 13 mg/dL Normal 6 - 23 [facility] Comment on above: Performed By: #### B MP #### [address] [address] HEMOGLOBIN A1Con 11-08-2022 Glucose [Mass/Vol] 105 mg/dL Normal [facility] [place] Comment on above: Performed By: #### H BA1E #### [address] [address] HbA1c (Bld) [Mass fraction] 5.3 % Normal [facility] Comment on above: Result Comment: Diag nosis of Diabetes-Adults Non-Diabetic: < or = 5.6% Increased risk for developing diabetes: 5.7-6.4% Diagnostic of diabetes: > or = 6.5% . Monitoring of Diabetes Age (y) Therapeutic Goal (%) Adults: >18 <7.0 Pediatrics: 13-18 <7.5 7-12 <8.0 0- 6 7.5-8.5 [place] [employer]. Diabetes Care 33(S1), May 2009. Performed By: #### H BA1E #### [address] [address] Hemoglobin A1Con 11-08-2022 Glucose [Mass/Vol] 105 mg/dL MP-Uro logy-[place] Work Phone: HbA1c (Bld) [Mass fraction] 5.3 % NX-Tfuvnyv-Yl [place] Work Phone: Comment on above: Diagnosis of Diabete s-Adults Non-Diabetic: < or = 5.6% Increased risk for developing diabetes: 5.7-6.4% Diagnostic of diabetes: > or = 6.5%. Monitoring of Diabetes Age (y) Therapeutic Goal (%) Adults: >18 <7.0 Pediatrics: 13-18 <7.5 7-12 <8.0 0- 6 7.5-8.5 [place] [employer]. Diabetes Care 33(S1), May 2009. LIPID PANEL (CORONARY RISK 2 )on 11-08-2022 Cholesterol [Mass/Vol] 127 mg/dL Normal 0 - 199 [facility] Comment on above: Result Comment: . AGE [...] dosing. Performed By: #### L IPID #### [address] [address] Cholesterol in HDL [Mass/Vol] 53.0 mg/dL Normal [facility] Comment on above: Result Comment: . AGE VERY LOW LOW NORMAL HIGH 0-19 Y < 35 < 40 40-45 ---- 20-24 Y ---- < 40 >45 ---- >24 Y ---- < 40 40-60 >60 . Performed By: #### L IPID #### [address] [address] Cholesterol in LDL [Mass/Vol] 59 mg/dL Normal 0 - 99 [facility] Comment on above: Result Comment: . NEAR BORD AGE DESIRABLE OPTIMAL HIGH HIGH VERY HIGH 0-19 Y 0 - 109 --- 110-129 >/= 130 ---- 20-24 Y 0 - 119 --- 120-159 >/= 160 ---- >24 Y 0 - 99 100-129 130-159 160-189 >/=190 . Performed By: #### L IPID #### [address] [address] Cholesterol in VLDL [Mass/Vol] 15 mg/dL Normal 0 - 40 [facility] Comment on above: Performed By: #### L IPID #### [address] [address] Cholesterol.total/ Cholesterol in HDL [Mass ratio] 2.4 {ratio} Normal [facility] Comment on above: Result Comment: REF VALUES DESIRABLE < 3.4 HIGH RISK > 5.0 Performed By: #### L IPID #### [address] [address] Triglyceride [Mass/Vol] 75 mg/dL Normal 0 - 149 [facility] Comment on above: Result Comment: . AGE [...] dosing. Performed By: #### L IPID #### [address] [address] Laboratory - Chemistry and C hemistry - challengeon 11-08-2022 Anion gap [Moles/Vol] 11 mmol/L 10 - 20 JK-Ouvdoij-Wk [place] Work Phone: Calcium [Mass/Vol] 9.5 mg/dL 8.6 - 10.3 MP-Uro logy-[place] Work Phone: Chloride [Moles/Vol] 103 mmol/L 98 - 107 OM-Nnzwmlg-Vf [place] Work Phone: CO2 [Moles/Vol] 28 mmol/L 21 - 32 MP-Urolog y-[place] Work Phone: Creatinine [Mass/Vol] 0.79 mg/dL See Below JP-Kjkxkur-Lq h[place] Work Phone: Comment on above: Reference Range: 0.5 0 - 1.30 Glucose [Mass/Vol] 109 mg/dL above high threshold 74 - 99 FV-Gweyger-Nh [place] Work Phone: Potassium [Moles/Vol] 4.3 mmol/L 3.5 - 5.3 VO-Mpytjfo-Rv [place] Work Phone: Sodium [Moles/Vol] 138 mmol/L 136 - 145 MP-Uro logy-[place] Work Phone: Urea nitrogen [Mass/Vol] 13 mg/dL 6 - 23 OQ-Unszdhx-Tc h[place] Work Phone: Lipid Panelon 11-08-2022 Cholesterol [Mass/Vol] 127 mg/dL 0 - 199 TN-Uofwfrp-Qq [place] Work Phone: Comment on above: . AGE DESIRABLE BORD ALLYSON HIGH HIGH 0-19 Y 0 - 169 [...] dosing. Cholesterol in HDL [Mass/Vol] 53.0 mg/dL MF-Dzaboco-Nj [place] Work Phone: Comment on above: . AGE VERY LOW LOW N ORMAL HIGH 0-19 Y < 35 < 40 40-45 ---- 20- 24 Y ---- < 40 >45 ---- >24 Y ---- < 40 40-60 >60. Cholesterol in LDL [Mass/Vol] 59 mg/dL 0 - 99 EZ-Ilzyebn-Oc [place] Work Phone: Comment on above: . NEAR BORD AGE MARIYA RABLE OPTIMAL HIGH HIGH VERY HIGH 0-19 Y 0 - 109 --- 110-129 >/= 130 ---- 20-24 Y 0 - 119 --- 120-159 >/= 160 ---- >24 Y 0 - 99 100-129 130-159 160-189 >/=190. Cholesterol.total/ Cholesterol in HDL [Mass ratio] 2.4 {ratio} FB-Qepibft-Yf [place] Work Phone: Comment on above: REF VALUESDESIRABLE < 3.4HIGH RISK > 5.0 Triglyceride [Mass/Vol] 75 mg/dL 0 - 149 QN-Tlibimj-Jl h[place] Work Phone: Comment on above: . AGE DESIRABLE BORD ALLYSON HIGH HIGH VERY HIGH 0 D-90 D [...] Lipid Panel 15 mg/dL 0 - 40 AD-Ykricof-Jo [place] Work Phone: No Panel Informationon 11-08 >90 >90 ML-Iedvsze-Sp [place] Work Phone: Comment on above: CALCULATIONS OF CHARLEY MATED GFR ARE PERFORMED USING THE 2020 CKD-EPI STUDY REFIT EQUATION WITHOUT THE RACE VARIABLE FOR THE IDMS-TRACEABLE CREATININE METHODS.https://jasn.asnjournals.org/content//ASN.2 103714976 PROSTATE SPEC.AG,SCREENon PROSTATE SPEC.AG,SCREEN 4.00 ng/mL Normal 0.00 - 4.00 [facility] Comment on above: Result Comment: The FDA requires that the method used for PSA assay be reported to the physician. Values obtained with different assay methods must not be used interchangeably. This test was performed at [facility] using the Stocard PSA assay is a two-site immunoenzymatic sandwich assay. The assay is approved for measurement of prostate-specific antigen (PSA)in serum and may be used in conjunction with a digital rectal examination in men 50 years and older as an aid in detection of prostate cancer. 2-Puwwf-buddpttfc inhibitors (e.g. Proscar, Finasteride, Avodart, Dutasteride and Charlee) for the treatment of BPH have been shown to lower PSA levels by an average of 50% after 6 months of treatment. Performed By: #### P [facility] #### [address] [place] [address] Prostate Spec.Ag, Screenon 0 11-08-2022 Prostate specific Ag [Mass/Vol] 4.00 ng/mL See Below LU-Ndpdjcl-Gj [place] Work Phone: Comment on above: Reference Range: 0.0 0 - 4.00The FDA requires that the method used for PSA assay be reported to the physician. Values obtained with different assay methods must not be used interchangeably. This testwas performed at [facility] using the ReFlow Medicalbrbabberly PSA assay is a two-site immunoenzymatic sandwich assay. The assay is approved for measurement of prostate-specific antigen (PSA)in serum and may be used in conjunction with a digital rectal examination in men 50 years and older as an aid in detection of prostate cancer.5-Kyzfg-ntvmkywbb inhibitors (e.g. Proscar, Finasteride, Avodart, Dutasteride and [...] labs. This note was generated by using Health Data Vision software. It may contain errors in wording, [...] have advanced directives.. He did see his spool maker and has been diagnosed with alopecia areata [...] a) No falls within the last year -[facility]-[place] and Work Phone: Tobacco use status CPHS b) No MP-[facility]-[place] and Work Phone: BASIC METABOLIC PANELon 12-2 -2021 Anion gap [Moles/Vol] 10 mmol/L Normal 10 - 20 [facility] Comment on above: Performed By: #### B MP #### [address] [address] Calcium [Mass/Vol] 9.1 mg/dL Normal 8.6 - 10.3 [facility] [place] Comment on above: Performed By: #### B MP #### [address] [address] Chloride [Moles/Vol] 102 mmol/L Normal 98 - 107 [facility] Comment on above: Performed By: #### B MP #### [address] [address] Creatinine [Mass/Vol] 0.90 mg/dL Normal 0.50 - 1.30 [facility] Comment on above: Performed By: #### B MP #### [address] [address] eGFR MALE >90 Normal >90 [facility] Comment on above: Result Comment: CALC ULATIONS OF ESTIMATED GFR ARE PERFORMED USING THE 2020 CKD-EPI STUDY REFIT EQUATION WITHOUT THE RACE VARIABLE FOR THE IDMS-TRACEABLE CREATININE METHODS. https://jasn.asnjournals.org/content//ASN.627844015 8 Performed By: #### B MP #### [address] [address] Glucose [Mass/Vol] 101 mg/dL High 74 - 99 [facility] [place] Comment on above: Performed By: #### B MP #### [address] [address] HCO3 (Bld) [Moles/Vol] 29 mmol/L Normal 21 - 32 [facility] Comment on above: Performed By: #### B MP #### [address] [address] Potassium [Moles/Vol] 4.3 mmol/L Normal 3.5 - 5.3 [facility] Comment on above: Performed By: #### B MP #### [address] [address] Sodium [Moles/Vol] 137 mmol/L Normal 136 - 145 [facility] [place] Comment on above: Performed By: #### B MP #### [address] [address] Urea nitrogen [Mass/Vol] 18 mg/dL Normal 6 - 23 [facility] Comment on above: Performed By: #### B MP #### [address] [address] HEMOGLOBIN A1Con 05-10-2022 Glucose [Mass/Vol] 114 mg/dL Normal [facility] [place] Comment on above: Performed By: #### H BA1E #### [address] [address] HbA1c (Bld) [Mass fraction] 5.6 % Normal [facility] Comment on above: Result Comment: Diag nosis of Diabetes-Adults Non-Diabetic: < or = 5.6% Increased risk for developing diabetes: 5.7-6.4% Diagnostic of diabetes: > or = 6.5% . Monitoring of Diabetes Age (y) Therapeutic Goal (%) Adults: >18 <7.0 Pediatrics: 13-18 <7.5 7-12 <8.0 0- 6 7.5-8.5 [place] [employer]. Diabetes Care 33(S1), May 2009. Performed By: #### H BA1E #### [address] [address] Hemoglobin A1Con 05-10-2022 Glucose [Mass/Vol] 114 mg/dL -[facility]-[place] and Work Phone: HbA1c (Bld) [Mass fraction] 5.6 % -[facility] and Work Phone: Comment on above: Diagnosis of Diabete s-Adults Non-Diabetic: < or = 5.6% Increased risk for developing diabetes: 5.7-6.4% Diagnostic of diabetes: > or = 6.5%. Monitoring of Diabetes Age (y) Therapeutic Goal (%) Adults: >18 <7.0 Pediatrics: 13-18 <7.5 7-12 <8.0 0- 6 7.5-8.5 [place] [employer]. Diabetes Care 33(S1), May 2009. Laboratory - Chemistry and C hemistry - challengeon 05-10-2022 Anion gap [Moles/Vol] 10 mmol/L 10 - 20 [facility]-[place] and Work Phone: Calcium [Mass/Vol] 9.1 mg/dL 8.6 - 10.3 [facility]-[place] and Work Phone: Chloride [Moles/Vol] 102 mmol/L 98 - 107 [facility] and Work Phone: CO2 [Moles/Vol] 29 mmol/L 21 - 32 [facility] and Work Phone: Creatinine [Mass/Vol] 0.90 mg/dL See Below [facility] and Work Phone: Comment on above: Reference Range: 0.5 0 - 1.30 Glucose [Mass/Vol] 101 mg/dL above high threshold 74 - 99 [facility] and Work Phone: Potassium [Moles/Vol] 4.3 mmol/L 3.5 - 5.3 [facility] and Work Phone: Sodium [Moles/Vol] 137 mmol/L 136 - 145 [facility]-[place] and Work Phone: Urea nitrogen [Mass/Vol] 18 mg/dL 6 - 23 [facility] and Work Phone: No Panel Informationon 05-10 >90 >90 [facility] and Work Phone: Comment on above: CALCULATIONS OF CHARLEY MATED GFR ARE PERFORMED USING THE 2020 CKD-EPI STUDY REFIT EQUATION WITHOUT THE RACE VARIABLE FOR THE IDMS-TRACEABLE CREATININE METHODS.https://jasn.asnjournals.org/content//ASN.2 355041926 Office Visit (Family Soren haji)on 11-11-2021 Follow-up [...] review. This note was generated by using Health Data Vision software. It may contain errors in wording, punctuate, or spelling. This note was generated by using Health Data Vision software. It may contain errors in wording, [...] Medicare annual wellness visit, subsequent (V70.0) (Z00.00) BENJMAIN (obstructive sleep apnea) (327.23) (G47.33) Rising PSA [...] score Multi-Vitamins TABSTAKE 1 TABLET DAILY.Health Maintenance Palmetto 3 CAPSTAKE DIRECTED.Health Maintenance Vitamin C TABSTAKE 1 TABLET DAILY.Health Maintenance Lisinopril 10 MG Oral TabletTAKE 1 TABLET BY MOUTH EVERY DAYHTN (hypertension) Atorvastatin Calcium 40 MG Oral TabletTAKE 1 TABLET BY MOUTH EVERY DAYHyperlipidemia LDL goal <100 Vitals Vital Signs Recorded: 11Nov2021 09:01AM Heart Rate68 Eamowcmy357 Qaaqsfssf51 Height6 ft Mcbijh070 lb 8 oz BMI Bkshtbldtr52.55 BSA Calculated2.18 Tobacco Useb) No Falls Screening (Age 18+)a) No falls within the last year O2 Zfzrjvociu69 Results/Data Basic Metabolic [id number] 06:50AMSana Doyle Test NameResultFlagReference G (more content not included)... Normal [employer] Tobacco Screening.on 022 Fall risk assessment a) No falls within the last year [facility] and Work Phone: Tobacco use status [facility] b) No [facility] and Work Phone: Laboratory - Chemistry and C hemistry - challengeon 11-05-2021 Anion gap [Moles/Vol] 9 mmol/L below low threshold 10 - 20 [facility] and Work Phone: Calcium [Mass/Vol] 9.2 mg/dL 8.6 - 10.3 [facility] and Work Phone: Chloride [Moles/Vol] 103 mmol/L 98 - 107 [facility] and Work Phone: CO2 [Moles/Vol] 29 mmol/L 21 - 32 [facility] and Work Phone: Creatinine [Mass/Vol] 0.88 mg/dL See Below [facility] and Work Phone: Comment on above: Reference Range: 0.5 0 - 1.30 Glucose [Mass/Vol] 108 mg/dL above high threshold 74 - 99 [facility] and Work Phone: Potassium [Moles/Vol] 4.4 mmol/L 3.5 - 5.3 [facility] and Work Phone: Sodium [Moles/Vol] 137 mmol/L 136 - 145 [facility] and Work Phone: Urea nitrogen [Mass/Vol] 17 mg/dL 6 - 23 [facility] and Work Phone: Lipid Panelon 11-05-2021 Cholesterol [Mass/Vol] 147 mg/dL 0 - 199 [facility] and Work Phone: Comment on above: . AGE DESIRABLE BORD ALLYSON HIGH HIGH 0-19 Y 0 - 169 [...] dosing. Cholesterol in HDL [Mass/Vol] 48.0 mg/dL [facility] and Work Phone: Comment on above: . AGE VERY LOW LOW N ORMAL HIGH 0-19 Y < 35 < 40 40-45 ---- 20- 24 Y ---- < 40 >45 ---- >24 Y ---- < 40 40-60 >60. Cholesterol in LDL [Mass/Vol] 82 mg/dL 0 - 99 [facility] and Work Phone: Comment on above: . NEAR BORD AGE MARIYA RABLE OPTIMAL HIGH HIGH VERY HIGH 0-19 Y 0 - 109 --- 110-129 >/= 130 ---- 20-24 Y 0 - 119 --- 120-159 >/= 160 ---- >24 Y 0 - 99 100-129 130-159 160-189 >/=190. Cholesterol.total/ Cholesterol in HDL [Mass ratio] 3.1 {ratio} [facility] and Work Phone: Comment on above: REF VALUESDESIRABLE < 3.4HIGH RISK > 5.0 Triglyceride [Mass/Vol] 83 mg/dL 0 - 149 [facility] HospitalDaily[facility] Phone: Comment on above: . AGE DESIRABLE BORD ALLYSON HIGH HIGH VERY HIGH 0 D-90 D [...] Lipid Panel 17 mg/dL 0 - 40 [facility] and Work Phone: No Panel Informationon 11-05 >90 >90 [facility] Work Phone: Comment on above: CALCULATIONS OF CHARLEY MATED GFR ARE PERFORMED USING THE 2020 CKD-EPI STUDY REFIT EQUATION WITHOUT THE RACE VARIABLE FOR THE IDMS-TRACEABLE CREATININE METHODS.https://jasn.asnjournals.org/content//ASN.2 131586173 Prostate Specific Antigenon 11-05-2021 Prostate specific Ag [Mass/Vol] 1.92 ng/mL See Below [facility] and Work Phone: Comment on above: Reference Range: 0.0 0 - 4.00The FDA requires that the method used for PSA assay be reported to the physician. Values obtained with different assay methods must not be used interchangeably. This testwas performed at [facility] using the Access Vista Therapeuticsbritech PSA assay is a two-site immunoenzymatic sandwich assay. The assay is approved for measurement of prostate-specific antigen (PSA)in serum and may be used in conjunction with a digital rectal examination in men 50 years and older as an aid in detection of prostate cancer.7-Jnsrl-wseinlvyn inhibitors (e.g. Proscar, Finasteride, Avodart, Dutasteride and Charlee) for the treatment of BPH have been shown to lower PSA levels by an average of 50% after 6 months of treatment. Hemoglobin A1Con 05-09-2021 Glucose [Mass/Vol] 111 mg/dL [facility] and Work Phone: HbA1c (Bld) [Mass fraction] 5.5 % [facility] and Work Phone: Comment on above: Diagnosis of Diabete s-Adults Non-Diabetic: < or = 5.6% Increased risk for developing diabetes: 5.7-6.4% Diagnostic of diabetes: > or = 6.5%. Monitoring of Diabetes Age (y) Therapeutic Goal (%) Adults: >18 <7.0 Pediatrics: 13-18 <7.5 7-12 <8.0 0- 6 7.5-8.5 [place] [employer]. Diabetes Care 33(S1), May 2009. Laboratory - Chemistry and C hemistry - challengeon 05-09-2021 Anion gap [Moles/Vol] 9 mmol/L below low threshold 10 - 20 [facility] and Work Phone: Calcium [Mass/Vol] 9.3 mg/dL 8.6 - 10.3 [facility] and Work Phone: Chloride [Moles/Vol] 101 mmol/L 98 - 107 [facility] and Work Phone: CO2 [Moles/Vol] 30 mmol/L 21 - 32 [facility] and Work Phone: Creatinine [Mass/Vol] 0.82 mg/dL See Below [facility] and Work Phone: Comment on above: Reference Range: 0.5 0 - 1.30 Glucose [Mass/Vol] 92 mg/dL 74 - 99 [facility] and Work Phone: Potassium [Moles/Vol] 3.9 mmol/L 3.5 - 5.3 [facility] and Work Phone: Sodium [Moles/Vol] 136 mmol/L 136 - 145 [facility] and Work Phone: Urea nitrogen [Mass/Vol] 19 mg/dL 6 - 23 [facility] and Work Phone: No Panel Informationon 05-09 >60 >60 [facility] and Work Phone: Comment on above: CALCULATIONS OF CHARLEY MATED GFR ARE PERFORMED USING THE MDRD STUDY EQUATION FOR THE IDMS-TRACEABLE CREATININE METHODS. CLIN CHEM 2007;53:766-72 Prostate Spec.Ag, Screenon 1 07-10-2020 Prostate specific Ag [Mass/Vol] 2.22 ng/mL See Below [facility] and Work Phone: Comment on above: Reference Range: 0.0 0 - 4.00The FDA requires that the method used for PSA assay be reported to the physician. Values obtained with different assay methods must not be used interchangeably. This testwas performed at [facility] using the Access Hybritech PSA assay is a two-site immunoenzymatic sandwich assay. The assay is approved for measurement of prostate-specific antigen (PSA)in serum and may be used in conjunction with a digital rectal examination in men 50 years and older as an aid in detection of prostate cancer.5-Zcorm-zztypoywa inhibitors (e.g. Proscar, Finasteride, Avodart, Dutasteride and Charlee) for the treatment of BPH have been shown to lower PSA levels by an average of 50% after 6 months of treatment. Tobacco Screening.on 021 Fall risk assessment a) No falls within the last year [facility] and Work Phone: Tobacco use status CPHS b) No [facility] and Work Phone: ALT - Alanine Aminotransfera se, Serumon 11-10-2020 ALT With P-5'-P [Catalytic activity/Vol] 35 U/L 10 - 52 [facility] and Work Phone: Comment on above: Patients treated wit h Sulfasalazine may generate falsely decreased results for ALT. Hemoglobin A1Con 11-10-2020 Glucose [Mass/Vol] 105 mg/dL [facility] and Work Phone: HbA1c (Bld) [Mass fraction] 5.3 % [facility] and Work Phone: Comment on above: Diagnosis of Diabete s-Adults Non-Diabetic: < or = 5.6% Increased risk for developing diabetes: 5.7-6.4% Diagnostic of diabetes: > or = 6.5%. Monitoring of Diabetes Age (y) Therapeutic Goal (%) Adults: >18 <7.0 Pediatrics: 13-18 <7.5 7-12 <8.0 0- 6 7.5-8.5 [place] [employer]. Diabetes Care 33(S1), May 2009. Laboratory - Chemistry and C hemistry - challengeon 11-10-2020 Anion gap [Moles/Vol] 8 mmol/L below low threshold 10 - 20 [facility] and Work Phone: AST With P-5'-P [Catalytic activity/Vol] 30 U/L 9 - 39 [facility] and Work Phone: Calcium [Mass/Vol] 9.5 mg/dL 8.6 - 10.3 [facility] and Work Phone: Chloride [Moles/Vol] 104 mmol/L 98 - 107 [facility] and Work Phone: CO2 [Moles/Vol] 29 mmol/L 21 - 32 [facility] and Work Phone: Creatinine [Mass/Vol] 0.91 mg/dL See Below [facility] and Work Phone: Comment on above: Reference Range: 0.5 0 - 1.30 Glucose [Mass/Vol] 98 mg/dL 74 - 99 [facility] and Work Phone: Potassium [Moles/Vol] 4.3 mmol/L 3.5 - 5.3 [facility] and Work Phone: Sodium [Moles/Vol] 137 mmol/L 136 - 145 [facility] and Work Phone: Urea nitrogen [Mass/Vol] 19 mg/dL 6 - 23 [facility] and Work Phone: No Panel Informationon 11-10 >60 >60 [facility] Work Phone: Comment on above: CALCULATIONS OF CHARLEY MATED GFR ARE PERFORMED USING THE MDRD STUDY EQUATION FOR THE IDMS-TRACEABLE CREATININE METHODS. CLIN CHEM 2007;53:766-72 CT Angio Coronary Arteries w ith Heart Flowon 12-22-2019 CT Angio Coronary Arteries with Heart Flow Interpreted by: ROCKY12/22/19 12:43MRN: [id number] Name: JORGE NANCIE STUDY:CTA CORONARY ART WITH HEARTFLOW IF SCORE [...] high-intensity statin along with physical activitydriven further intervention/investigatio n. If the patient hasexertional chest pain or shortness of breath or any other exertionalsymptoms we will not hesitate to go ahead and perform a left heartcatheterization at that point. Risk and benefit of both approachesexplained.2. Noncardiac findings noted as above. Those nodules do not needfurther workup. Electronically signed by: ROCKY 12/22/19 12:43 Normal -Cardiology [facility] Work Phone: Metabolic Panelon 12-19-2019 Anion gap [Moles/Vol] 9 mmol/L below low threshold 10 - 20 -[facility] Work Phone: Calcium [Mass/Vol] 9.6 mg/dL 8.6 - 10.3 [address] Work Phone: Chloride [Moles/Vol] 104 mmol/L 98 - [address] Work Phone: CO2 [Moles/Vol] 29 mmol/L 21 - [address] Work Phone: Creatinine [Mass/Vol] 0.88 mg/dL See Below [address] Work Phone: Comment on above: Reference Range: 0.5 0 - 1.30 Glucose [Mass/Vol] 104 mg/dL above high threshold 74 - [address] Work Phone: Potassium [Moles/Vol] 4.3 mmol/L 3.5 - 5.[address] Work Phone: Sodium [Moles/Vol] 138 mmol/L 136 - [address] Work Phone: Urea nitrogen [Mass/Vol] 18 mg/dL 6 - [address] Work Phone: Otheron 12-19-2019 >60 >[address] Work Phone: Comment on above: CALCULATIONS OF CHARLEY MATED GFR ARE PERFORMED USING THE MDRD STUDY EQUATION FOR THE IDMS-TRACEABLE CREATININE METHODS. CLIN CHEM 2007;53:766-72 Otheron 11-21-2019 Interpreted by: DREW JAIN11/21/19 10:52MRN: [id number] Name: NANCIE PATEL STUDY:CARDIAC STRESS/REST INJECTION; CARDIAC STRESS/REST (MYOCARDIALPERFUSION/MIBI ); PART 2 STRESS OR REST (NO CHARGE); 11/21/2019 9:32 am INDICATION:CHEST PAIN Abnormal findings on diagnostic imaging of heart andcoronary circulation Other chest pain. COMPARISON:None. [id number]; [id number] ORDERING CLINICIAN:SANA DOYLE TECHNIQUE:DIVISION OF NUCLEAR PENDING SALE TO [facility] MYOCARDIAL PERFUSION SCAN, ONE DAY PROTOCOL The [...] left ventricular function. Finding discussed with Dr. Doyle by residential aide Dr. Guerrero at10:30 am.I personally reviewed the images/study and I agree with the findingsas stated. This study was interpreted at [place], [place].Electronically signed by: PETAR JAIN 11/21/19 10:52 Normal [facility] [employer] Work Phone: [phone] [place], [place] [address]Phone [phone], Xomlncv Treadmill Stress TestPatient Name: NANCIE PATEL Ordering Physician:Study Date: 11/21/2019 Reading Physician: [id number] Virginia Hidalgo MDMRN/PID: [id number] Supervising Physician:Accession/Order #: [id number] Referring Physician: [id number] Hood RoyalDate of : 1955 PCP:Gender: M Fellow:Admit Date: 11/21/2019 Fellow:Admission Status: Outpatient Extract Operator: Cecilio Decker [employer] L[employer]ISON OFFICER, CCTHeight: 182.88 cm Nurse: NAWeight: 94.80 kg Machine Rug Cleaner: NABSA: 2.17 m2 Technologist:BMI: 28.35 kg/m2 Additional Staff:Age: 64 years cc report to:Patient Location: [facility] Stress Lab cc report to:Study Type: Syngo Nuclear OrderDiagnosis/ICD: R93.1-Abnormal findings on diagnostic imaging of heart andcoronary circulationIndication: ABN CACSProcedure/CPT: Stress Test Interpretation-[id number]; Stress Test Supervision-[id number] Risk: Low: Patient has low risk for [...] tachycardia, with no abnormal findings.Stress Stage Data:+ +- --+------+-------+\F\ \F\HR \F\Sys BP\F\Sawyer BP\F\+ +- --+------+-------+\F\Base line Resting \F\67 \F\139 \F\81 \F\+ +--- +------+-------+\F\Baseli ne Standing\F\69 \F\136 \F\78 \F\+ +--- +------+-------+\F\Stage I \F\101\F\173 \F\75 \F\+ +--- +------+-------+\F\Stage II \F\108\F\195 \F\78 \F\+ +--- +------+-------+\F\Stage III \F\132\F\233 \F\110 \F\+ +--- +------+-------+\F\Stage IV \F\148\F\207 \F\94 \F\+ +--- +------+-------+Recovery ECG: Recovery ECG showed normal sinus rhythm, with no abnormal findings. The heart rate recovery was normal.+ +---+ ------+-------+\F\ \F\HR \F\Sys BP\F\Sawyer BP\F\+ +---+-- ----+-------+\F\Recovery I \F\134\F\ \F\ \F\+ +---+---- --+-------+\F\Recovery II \F\116\F\215 \F\86 \F\+ +---+---- --+-------+\F\Recovery III\F\96 \F\175 \F\75 \F\+ +---+---- --+-------+Summary:1. Negative EKG stress test for ischemia.2. Baseline [...] separately.8. The adequate level of stress was achieved.[id number] Virginia Hidalgo MDElectronically signed on 11/21/2019 at 9:46:40 AM Final [facility] Work Phone: Otheron 10-24-2019 [email or web address]} [facility] Work Phone: Otheron 10-22-2019 NOT DETECTED See Below [facility] Work Phone: Comment on above: SOURCE: Nasal, Nasop haryngealReference Range: Not Detected.This assay is designed to detect SARS-CoV-2 based on replication of specific regions of the RNA from the SARS-CoV-2 virus. A Not Detected result does not preclude 2019-nCoV infection since the adequacy of sample collection and/or low viral burden may result in presence of viral nucleic acids below the clinical sensitivity of this test method. Fact sheet for providers: https://www.fda.gov/media/618927/downloadFact sheet for patients: https://www.fda.gov/media/100225/downloadThis test has been validated by the utilization management manager but FDAs independent review of this validation is pending. This test has been verified by [facility] ([facility]). This test is only authorized for the duration of time that circumstances exist to justify the authorization of the emergency use of in vitro diagnostic tests for the detection of SARS-CoV-2 virus and/or diagnosis of COVID-19 infection under section 564(b)(1) of the Act, 21 U.S.C. 360bbb-3(b)(1), unless the authorization is terminated or revoked sooner. [facility] is certified under CLIA-88 as qualified to perform high complexity testing. Testing is performed in the [facility] laboratories located at [address] [place] [address]. Lipid Profileon 05-15-2017 Cholesterol 299 mg/dL High 50-200 [facility] Comment on above: Result Comment: ABHIJIT Gao CHOLEESTEROL: <200 NORMAL 200 - 239 BORDERLINE HIGH >240 HIGH Performed By: #### [id number] ####GIL [address] [place] [address] Cholesterol in VLDL mass conc 39 mg/dL Normal [facility] Comment on above: Performed By: #### 3 [id number] ####GIL [address]ah[address] [place] [address] HDL Cholesterol 52 mg/dL Normal >=41 [facility] Comment on above: Performed By: #### 3 [id number] ####GIL [address] [place] [address] LDL Cholesterol 208 mg/dL High 0-130 [facility] Comment on above: Result Comment: <100 [id number] NEAR / ABOVE NUHSONN324- 159 BORDERLINE [id number] HIGH>190 VERY HIGHCALC LDL NOT VALID WHEN TRIGLYCERIDE IS >400 MG/DL Performed By: #### 3 [id number] ####GIL [address] [place] [address] Triglyceride 194 mg/dL High 35-150 [facility] Comment on above: Result Comment: <150 [id number] BORDERLINE [id number] HIGH>500 VERY HIGH Performed By: #### 3 [id number] ####GILCristhian Farah[address]obMlib[address] [place] [address] PSA Screenon 05-15-2017 PSA 1.96 ng/mL Normal [facility] Comment on above: Result Comment: AGE- SPECIFIC REFERENCE RANGES FOR SERUM PSA REFERENCE RANGE NG/ML AGE ASIANS BLACKS WHITE 40-49 0-2 0-2 0-2.5 50-59 0-3 0-4 0-3.5 60-69 0-4 0-4.5 0-4.5 70-79 0-5 0-5.5 0-6.5 PSA INCREASES WITH AGE, RACE, AND EJACULATION WITHIN 48 HRS. [facility] VOL24,NO.2, , PG.339 Performed By: #### 1 [id number] ####GILCristhian Far[address]Ch[address]fo[address] [place] [address] Vital Signs Date Time Vital Sign Value Performing Clinician Facility 11-14-2024 07:12-0400 Body mass index (BMI) [Ratio] 28.74 kg/m2 Harvinder Reji DO Work Phone: [facility] 11-14-2024 07:12-0400 Body temperature 98.01 [degF] Harvinder Reji DO Work Phone: [facility] 11-14-2024 07:12-0400 Body weight 98.79 kg Harvinder Reji DO Work Phone: [facility] 11-14-2024 07:12-0400 Diastolic blood pressure 81 mm[Hg] Harvinder Reji DO Work Phone: [facility] 11-14-2024 07:12-0400 Heart rate 65 /min Harvinder Reji DO Work Phone: [facility] 11-14-2024 07:12-0400 Respiratory rate 18 /min Harvinder Reji DO Work Phone: [facility] 11-14-2024 07:12-0400 SaO2% (BldA) [Mass fraction] 96 % Harvinder Reji DO Work Phone: [facility] 11-14-2024 07:12-0400 Systolic blood pressure 133 mm[Hg] Harvinder Reji DO Work Phone: [facility] 09-28-2024 13:52-0400 Body temperature 97.5 [degF] Dr. Harvinder Mendoza DO Work Phone: 1(081)537-452745 [place] [address] 09-28-2024 13:52-0400 Body weight 100.[address] Harvinder Mendoza DO Work Phone: 1(661)317-370487 [address] 09-28-2024 13:52-0400 Diastolic blood pressure 75 mm[Hg] Dr. Harvinder Mendoza DO Work Phone: 2(909)779-997287 [address] 09-28-2024 13:52-0400 Heart rate 76 /min Dr. Harvinder Mendoza DO Work Phone: 9(958)382-272187 [address] 09-28-2024 13:52-0400 Respiratory rate 16 /min Dr. Harvinder Mendoza DO Work Phone: 2(491)021-032687 [address] 09-28-2024 13:52-0400 SaO2% (BldA) [Mass fraction] 97 % Dr. Harvinder Mendoza DO Work Phone: 5(890)350-864964 [place] [address] 09-28-2024 13:52-0400 Systolic blood pressure 137 mm[Hg] Dr. Harvinder Mendoza DO Work Phone: 7(721)765-615864 [place] [address] 09-06-2024 11:34-0400 Body temperature 97.8 [degF] Dr. Harvinder Mendoza DO Work Phone: 5(762)751-011987 [address] 09-06-2024 11:34-0400 Body weight 99.[address] Harvinder Mendoza DO Work Phone: 5(679)196-859087 [address] 09-06-2024 11:34-0400 Diastolic blood pressure 81 mm[Hg] Dr. Harvinder Mendoza DO Work Phone: 6(211)450-808987 [address] 09-06-2024 11:34-0400 Heart rate 75 /min Dr. Harvinder Mendoza DO Work Phone: 3(312)663-240687 [address] 09-06-2024 11:34-0400 Respiratory rate 16 /min Dr. Harvinder Mendoza DO Work Phone: 8(799)983-506287 [address] 09-06-2024 11:34-0400 SaO2% (BldA) [Mass fraction] 98 % Dr. Harvinder Mendoza DO Work Phone: [facility] 09-06-2024 11:34-0400 Systolic blood pressure 145 mm[Hg] Dr. Harvinder Mendoza DO Work Phone: [facility] 08-26-2024 12:15-0400 Body height 185.4 cm Ollie Mejiata MILITARY PROFESSIONAL-GYMNASTIC TEACHER Work Phone: [facility] 08-26-2024 12:15-0400 Body mass index (BMI) [Ratio] 28.37 kg/m2 Ollie Alex MILITARY PROFESSIONAL-GYMNASTIC TEACHER Work Phone: [facility] 08-26-2024 12:15-0400 Body temperature 98.4 [degF] Ollie Alex MILITARY PROFESSIONAL-GYMNASTIC TEACHER Work Phone: [facility] 08-26-2024 12:15-0400 Body weight 97.52 kg Ollie Alex MILITARY PROFESSIONAL-GYMNASTIC TEACHER Work Phone: [facility] 08-26-2024 12:15-0400 Diastolic blood pressure 79 mm[Hg] Ollie Alex MILITARY PROFESSIONAL-GYMNASTIC TEACHER Work Phone: [facility] 08-26-2024 12:15-0400 Heart rate 89 /min Ollie Alex MILITARY PROFESSIONAL-GYMNASTIC TEACHER Work Phone: [facility] 08-26-2024 12:15-0400 Respiratory rate 18 /min Ollie Alex MILITARY PROFESSIONAL-GYMNASTIC TEACHER Work Phone: [facility] 08-26-2024 12:15-0400 SaO2% (BldA) [Mass fraction] 98 % Ollie Alex MILITARY PROFESSIONAL-GYMNASTIC TEACHER Work Phone: [facility] 08-26-2024 12:15-0400 Systolic blood pressure 156 mm[Hg] Ollie Alex MILITARY PROFESSIONAL-GYMNASTIC TEACHER Work Phone: [facility] 08-22-2024 14:26-0400 Diastolic blood pressure 79 mm[Hg] Harvinder Mendoza DO Work Phone: [facility] 08-22-2024 14:26-0400 Systolic blood pressure 125 mm[Hg] Harvinder Reji DO Work Phone: [facility] 08-22-2024 14:24-0400 Body height 185.4 cm Harvinder Reji DO Work Phone: [facility] 08-22-2024 14:24-0400 Body mass index (BMI) [Ratio] 29.03 kg/m2 Harvinder Reji DO Work Phone: [facility] 08-22-2024 14:24-0400 Body temperature 97.9 [degF] Harvinder Reji DO Work Phone: [facility] 08-22-2024 14:24-0400 Body weight 99.79 kg Harvinder Reji DO Work Phone: [facility] 08-22-2024 14:24-0400 Heart rate 72 /min Harvinder Reji DO Work Phone: [facility] 08-22-2024 14:24-0400 Respiratory rate 16 /min Harvinder Reji DO Work Phone: [facility] 08-22-2024 14:24-0400 SaO2% (BldA) [Mass fraction] 94 % Harvinder Reji DO Work Phone: [facility] 08-12-2024 10:02-0400 Body temperature 97.3 [degF] Dr. Harvinder Mendoza DO Work Phone: [facility] 08-12-2024 10:02-0400 Body weight 99.[address] Harvinder Mendoza DO Work Phone: [facility] 08-12-2024 10:02-0400 Diastolic blood pressure 82 mm[Hg] Dr. Harvinder Mendoza DO Work Phone: [facility] 08-12-2024 10:02-0400 Heart rate 72 /min Dr. Harvinder Mendoza DO Work Phone: [facility] 08-12-2024 10:02-0400 Respiratory rate 16 /min Dr. Harvinder Mendoza DO Work Phone: [facility] 08-12-2024 10:02-0400 SaO2% (BldA) [Mass fraction] 98 % Dr. Harvinder Mendoza DO Work Phone: [facility] 08-12-2024 10:02-0400 Systolic blood pressure 137 mm[Hg] Dr. Harvinder Mendoza DO Work Phone: [facility] 06-29-2024 13:16-0500 Body temperature 97.4 [degF] Dr. Harvinder Mendoza DO Work Phone: [facility] 06-29-2024 13:16-0500 Body weight 97.[address] Harvinder Mendoza DO Work Phone: [facility] 06-29-2024 13:16-0500 Diastolic blood pressure 88 mm[Hg] Dr. Harvinder Mendoza DO Work Phone: [facility] 06-29-2024 13:16-0500 Heart rate 76 /min Dr. Harvinder Mendoza DO Work Phone: [facility] 06-29-2024 13:16-0500 Respiratory rate 16 /min Dr. Harvinder Mendoza DO Work Phone: [facility] 06-29-2024 13:16-0500 SaO2% (BldA) [Mass fraction] 99 % Dr. Harvinder Mendoza DO Work Phone: [facility] 06-29-2024 13:16-0500 Systolic blood pressure 145 mm[Hg] Dr. Harvinder Mendoza DO Work Phone: [facility] 05-30-2024 08:02-0500 Diastolic blood pressure 84 mm[Hg] Harvinder Mendoza DO Work Phone: [facility] 05-30-2024 08:02-0500 Systolic blood pressure 134 mm[Hg] Harvinder Mendoza DO Work Phone: [facility] 05-30-2024 07:51-0500 Body height 185.4 cm Harvinder Reji DO Work Phone: [facility] 05-30-2024 07:51-0500 Body mass index (BMI) [Ratio] 28.09 kg/m2 Harvinder Reji DO Work Phone: [facility] 05-30-2024 07:51-0500 Body temperature 98.01 [degF] Harvinder Reji DO Work Phone: [facility] 05-30-2024 07:51-0500 Body weight 96.57 kg Harvinder Reji DO Work Phone: [facility] 05-30-2024 07:51-0500 Heart rate 70 /min Harvinder Reji DO Work Phone: [facility] 05-30-2024 07:51-0500 Respiratory rate 16 /min Harvinder Reji DO Work Phone: [facility] 05-30-2024 07:51-0500 SaO2% (BldA) [Mass fraction] 98 % Ahrvinder Reji DO Work Phone: [facility] 04-18-2024 15:06-0500 Body height 182.9 cm Sana Lyndora DO Work Phone: [facility] 04-18-2024 15:06-0500 Body mass index (BMI) [Ratio] 28.07 kg/m2 Sana Lyndora DO Work Phone: [facility] 04-18-2024 15:06-0500 Body weight 93.89 kg Sana Lyndora DO Work Phone: [facility] 04-18-2024 15:06-0500 Diastolic blood pressure 80 mm[Hg] Sana Lyndora DO Work Phone: [facility] 04-18-2024 15:06-0500 Heart rate 74 /min Sana Lyndora DO Work Phone: [facility] 04-18-2024 15:06-0500 SaO2% (BldA) [Mass fraction] 99 % Sana Lyndora DO Work Phone: [facility] 04-18-2024 15:06-0500 Systolic blood pressure 124 mm[Hg] Sana Lyndora DO Work Phone: [facility] 11-30-2023 12:59-0400 Body height 182.9 cm Sana Lyndora DO Work Phone: [facility] 11-30-2023 12:59-0400 Body mass index (BMI) [Ratio] 28.48 kg/m2 Sana Lyndora DO Work Phone: [facility] 11-30-2023 12:59-0400 Body weight 95.25 kg Sana Lyndora DO Work Phone: [facility] 11-30-2023 12:59-0400 Diastolic blood pressure 80 mm[Hg] Sana Lyndora DO Work Phone: [facility] 11-30-2023 12:59-0400 Heart rate 73 /min Sana Lyndora DO Work Phone: [facility] 11-30-2023 12:59-0400 SaO2% (BldA) [Mass fraction] 97 % Sana Lyndora DO Work Phone: [facility] 11-30-2023 12:59-0400 Systolic blood pressure 132 mm[Hg] Sana Lyndora DO Work Phone: [facility] 10-19-2023 07:03-0400 Body height 182.9 cm Sana Lyndora DO Work Phone: [facility] 10-19-2023 07:03-0400 Body mass index (BMI) [Ratio] 27.94 kg/m2 Sana Lyndora DO Work Phone: [facility] 10-19-2023 07:03-0400 Body weight 93.44 kg Sana Lyndora DO Work Phone: [facility] 10-19-2023 07:03-0400 Diastolic blood pressure 78 mm[Hg] Sana Lyndora DO Work Phone: [facility] 10-19-2023 07:03-0400 Heart rate 80 /min Sana Lyndora DO Work Phone: [facility] 10-19-2023 07:03-0400 SaO2% (BldA) [Mass fraction] 98 % Sana Lyndora DO Work Phone: [facility] 10-19-2023 07:03-0400 Systolic blood pressure 130 mm[Hg] Sana Lyndora DO Work Phone: [facility] 09-14-2023 07:07-0400 Body mass index (BMI) [Ratio] 28.35 kg/m2 Sana Lyndora DO Work Phone: 3(107)305-536447 [place] [address] 09-14-2023 07:07-0400 Body weight 94.8 kg Sana Lyndora DO Work Phone: 2(711)113-047647 [place] [address] 09-14-2023 07:07-0400 Diastolic blood pressure 72 mm[Hg] Sana Lyndora DO Work Phone: [facility] 09-14-2023 07:07-0400 Heart rate 99 /min Sana Lyndora DO Work Phone: [facility] 09-14-2023 07:07-0400 SaO2% (BldA) [Mass fraction] 99 % Sana Lyndora DO Work Phone: [facility] 09-14-2023 07:07-0400 Systolic blood pressure 126 mm[Hg] Sana Lyndora DO Work Phone: [facility] 08-17-2023 11:32-0400 Body height 182.9 cm Sana Lyndora DO Work Phone: 4(604)233-890547 [place] [address] 08-17-2023 11:32-0400 Body mass index (BMI) [Ratio] 25.23 kg/m2 Sana Lyndora DO Work Phone: 4(546)774-475247 [place] [address] 08-17-2023 11:32-0400 Body weight 84.37 kg Sana Lyndora DO Work Phone: [facility] 08-17-2023 11:32-0400 Diastolic blood pressure 72 mm[Hg] Sana Lyndora DO Work Phone: [facility] 08-17-2023 11:32-0400 Heart rate 76 /min Sana Lyndora DO Work Phone: [facility] 08-17-2023 11:32-0400 SaO2% (BldA) [Mass fraction] 98 % Sana Lyndora DO Work Phone: [facility] 08-17-2023 11:32-0400 Systolic blood pressure 124 mm[Hg] Sana Lyndora DO Work Phone: [facility] 11-17-2022 08:02-0400 Body height 182.9 cm Sana Lyndora DO Work Phone: [facility] 11-17-2022 08:02-0400 Body mass index (BMI) [Ratio] 25.23 kg/m2 Sana Lyndora DO Work Phone: [facility] 11-17-2022 08:02-0400 Body weight 84.37 kg Sana Lyndora DO Work Phone: [facility] 11-17-2022 08:02-0400 Diastolic blood pressure 80 mm[Hg] Sana Lyndora DO Work Phone: [facility] 11-17-2022 08:02-0400 Heart rate 65 /min Sana Lyndora DO Work Phone: [facility] 11-17-2022 08:02-0400 SaO2% (BldA) [Mass fraction] 99 % Sana Lyndora DO Work Phone: [facility] 11-17-2022 08:02-0400 Systolic blood pressure 122 mm[Hg] Sana Lyndora DO Work Phone: [facility] 11-10-2022 07:44-0400 Body mass index (BMI) [Ratio] 25.82 kg/m2 Sana S Lyndora Work Phone: [facility] Work Phone: 11-10-2022 07:44-0400 Body surface area Derived from formula 2.09 m2 Sana S [employer] Work Phone: [facility] Work Phone: 11-10-2022 07:44-0400 Body weight 86.36 kg Sana S Lyndora Work Phone: [facility]Fmb[facility] Work Phone: 11-10-2022 07:44-0400 Diastolic blood pressure 82 mm[Hg] Sana S [employer] Work Phone: [facility]Odhjgnr[facility]Wyyktxw Work Phone: 11-10-2022 07:44-0400 Heart rate 64 /min Sana Hernández [employer] Work Phone: ZS[facility]qzzjpy[facility]Hjtatqk Work Phone: 11-10-2022 07:44-0400 Systolic blood pressure 144 mm[Hg] Sana Hernández [employer] Work Phone: PY[facility]cyohlc[facility]rdx[facility] Work Phone: 05-13-2022 08:23-0500 Body height 182.88 cm Sana Hernández [employer] Work Phone: [employer] Work Phone: 05-13-2022 08:23-0500 Body mass index (BMI) [Ratio] 29.35 kg/m2 Sana Hernández [employer] Work Phone: [employer] Work Phone: 05-13-2022 08:23-0500 Body surface area Derived from formula 2.2 m2 Sana Hernández [employer] Work Phone: [employer] Work Phone: 05-13-2022 08:23-0500 Body weight 98.15 kg Sana Hernández [employer] Work Phone: [facility] Work Phone: 05-13-2022 08:23-0500 Diastolic blood pressure 69 mm[Hg] Sana Doyle Work Phone: [facility] Work Phone: 05-13-2022 08:23-0500 Heart rate 60 /min Sana Doyle Work Phone: [facility] Work Phone: 05-13-2022 08:23-0500 SaO2% (BldA) [Mass fraction] 98 % Sana Doyle Work Phone: [facility] Work Phone: 05-13-2022 08:23-0500 Systolic blood pressure 125 mm[Hg] Sana Doyle [employer] Phone: [facility] Work Phone: 11-11-2021 09:01-0400 Body height 182.88 cm Sana Doyle [employer] Phone: [facility] Work Phone: 11-11-2021 09:01-0400 Body mass index (BMI) [Ratio] 28.55 kg/m2 Sana Doyle [employer] Phone: [facility] Work Phone: 11-11-2021 09:01-0400 Body surface area Derived from formula 2.18 m2 Sana Hernández Oco Phone: [facility] Work Phone: 11-11-2021 09:01-0400 Body weight 95.48 kg Sana Doyle [employer] Phone: [facility] Work Phone: 11-11-2021 09:01-0400 Diastolic blood pressure 78 mm[Hg] Sana Doyle [employer] Phone: [facility] Work Phone: 11-11-2021 09:01-0400 Heart rate 68 /min Sana Doyle [employer] Phone: [facility] Work Phone: 11-11-2021 09:01-0400 SaO2% (BldA) [Mass fraction] 98 % Sana Doyle [employer] Phone: [facility] Work Phone: 11-11-2021 09:01-0400 Systolic blood pressure 138 mm[Hg] Sana Doyle [employer] Phone: [facility] Work Phone: 11-12-2020 08:43-0400 Body height 182.88 cm Sana Doyle [employer] Phone: [facility] Work Phone: 11-12-2020 08:43-0400 Body mass index (BMI) [Ratio] 28.91 kg/m2 Sana Doyle [employer] Phone: [facility] Work Phone: 11-12-2020 08:43-0400 Body surface area Derived from formula 2.19 m2 Sana Doyle In[employer] Phone: [facility] Work Phone: 11-12-2020 08:43-0400 Body temperature 97.2 [degF] Sana Doyle In[employer] Phone: [facility] Work Phone: 11-12-2020 08:43-0400 Body weight 96.68 kg Sana Hernández Oco Phone: [facility] [facility] Work Phone: 11-12-2020 08:43-0400 Diastolic blood pressure 72 mm[Hg] [facility]ana Doyle [facility] Work Phone: 11-12-2020 08:43-0400 Heart rate 76 /min Sana Doyle [facility] Work Phone: 11-12-2020 08:43-0400 SaO2% (BldA) [Mass fraction] 98 % Sana Doyle Work [facility] Work Phone: 11-12-2020 08:43-0400 Systolic blood pressure 136 mm[Hg] Sana Doyle Work Phone: [facility] Work Phone: 11-28-2019 11:19-0400 BMI (Body Mass Index) 28.6 kg/m2 [facility] [employer] Work Phone: 11-28-2019 11:19-0400 Body Temperature 97.7 [degF] [facility] [employer] Work Phone: 11-28-2019 11:19-0400 Body weight 95.66 kg [facility] [employer] Work Phone: 11-28-2019 11:19-0400 BP Diastolic 82 mm[Hg] [facility] [employer] Work Phone: Comment on above: Location: LUE; Position: Sitting 11-28-2019 11:19-0400 BP Systolic 142 mm[Hg] [facility] [employer] Work Phone: Comment on above: Location: [place]; Position: Sitting 11-28-2019 11:19-0400 BSA (Body Surface Area) 2.18 m2 [facility] [employer] Work Phone: 11-28-2019 11:19-0400 Height 182.88 cm [facility] [employer] Work Phone: 11-28-2019 11:19-0400 Pulse (Heart Rate) 75 /min [facility] Work Phone: 11-28-2019 11:19-0400 Pulse Oximetry 98 % [facility] [employer] Work Phone: 11-14-2019 10:04-0400 BMI (Body Mass Index) 28.41 kg/m2 [facility] Work Phone: 11-14-2019 10:04-0400 Body Temperature 95.5 [degF] [facility] Work Phone: Comment on above: Method: Temporal 11-14-2019 10:04-0400 Body weight 95 kg [facility] Work Phone: 11-14-2019 10:04-0400 BP Diastolic 78 mm[Hg] [facility] Work Phone: Comment on above: Location: [facility]11-14-2019 10:04-0400 BP Systolic 140 mm[Hg] [facility] Work Phone: Comment on above: Location: [facility]11-14-2019 10:04-0400 BSA (Body Surface Area) 2.17 m2 [facility] Work Phone: 11-14-2019 10:04-0400 Height 182.88 cm [facility] Work Phone: 11-14-2019 10:04-0400 Pulse (Heart Rate) 79 /min [facility] Work Phone: 11-14-2019 10:04-0400 Pulse Oximetry 97 % [facility] Work Phone: Encounters Encounter Date Encounter Type Care Provider Facility Start: 01-02-2025 ambulatory Harvinder Mendoza Facility:[facility] Start: 12-29-2024 ambulatory Harvinder Mendoza Facility:[facility] Start: 11-28-2024 End: 11-28-2024 Orders Only Harvinder Mendoza DO Work Phone: [facility] Comment on above: Mixed hyperlipidemia (Primary Dx) Start: 11-14-2024 End: 11-14-2024 Patient encounter procedure Harvinder Mendoza DO Work Phone: [facility] Comment on above: Medicare annual well ness visit, subsequent (Primary Dx); At low risk for fall; Mixed hyperlipidemia; Gastroesophageal reflux disease, unspecified whether esophagitis present; Primary hypertension Start: 11-14-2024 End: 11-14-2024 ambulatory HARVINDER MENDOZA [facility] Start: 11-09-2024 Non-patient / Non-visit Dr. Jose Alejandro bauman MD -[facility] Start: 11-09-2024 End: 11-09-[address] Harvinder Mendoza DO Work Phone: -[facility] Start: 11-09-2024 End: 11-09-2024 Patient encounter procedure Lizbeth ESTRELLA [facility] Work Phone: Start: 11-09-2024 End: 11-09-2024 ambulatory Harvinder Mendoza Facility:[facility] Start: 09-28-2024 Non-patient / Non-visit Dr. Jose Alejandro bauman MD -[facility] Start: 09-28-2024 End: 09-28-[address] Harvinder Mendoza DO Work Phone: [facility] Work Phone: Start: 09-28-2024 End: 09-28-2024 Patient encounter procedure Lizbeth ESTRELLA -[facility] Work Phone: Start: 09-28-2024 End: 09-28-2024 ambulatory Harvinder Mendoza Facility:[facility] Start: 09-06-2024 End: 09-06-2024 Patient encounter procedure Lizbeth ESTRELLA -[facility] Work Phone: Start: 09-06-2024 End: 09-06-2024 ambulatory Harvinder Mendoza Facility:[facility] Start: 08-26-2024 End: 08-26-2024 Patient encounter procedure Ollie Grant MILITARY PROFESSIONAL-GYMNASTIC TEACHER Work Phone: [facility] Comment on above: Acute bronchitis, un specified organism (Primary Dx) Start: 08-26-2024 End: 08-26-2024 ambulatory HARVINDER REJI [facility] Start: 08-22-2024 End: 08-22-2024 Office outpatient visit 25 minutes Harvinder Mendoza DO Work Phone: [facility] Comment on above: Gastroesophageal ref lux disease, unspecified whether esophagitis present (Primary Dx); Subacute cough Start: 08-22-2024 End: 08-22-2024 ambulatory HARVINDER MENDOZA [facility] Start: 08-12-2024 Non-patient / Non-visit Dr. Jose Alejandro bauman MD -[facility] Start: 08-12-2024 End: 08-12-2024 Patient encounter procedure Lizbeth ESTRELLA -[facility] Work Phone: Start: 08-12-2024 End: 08-12-[address] Harvinder Mendoza DO Work Phone: [facility] Work Phone: Start: 08-12-2024 End: 08-12-2024 ambulatory Harvinder Mendoza Facility:[facility] Start: 07-25-2024 Non-patient / Non-visit Dr. Jose Alejandro bauman MD -[facility] Start: 07-25-2024 End: 07-25-[address] Harvinder Mendoza DO Work Phone: [facility] Work Phone: Start: 07-25-2024 End: 07-25-2024 Patient encounter procedure Lizbeth ESTRELLA -[facility] Work Phone: Start: 07-25-2024 End: 07-25-2024 ambulatory Harvinder Mendoza Facility:[facility] Start: 06-29-2024 End: 06-29-2024 Patient encounter procedure Lizbeth ESTRELLA -[facility] Work Phone: Start: 06-29-2024 End: 06-29-2024 ambulatory Harvinder Mendoza Facility:[facility] Start: 06-09-2024 End: 06-09-2024 ambulatory HARVINDER MENDOZA [facility] Start: 05-30-2024 End: 05-30-2024 Office outpatient new 45 minutes Harvinder Mendoza DO Work Phone: [facility] Comment on above: Primary hypertension (Primary Dx); Mixed hyperlipidemia; Alopecia totalis; Overweight (BMI 25.0-29.9); Screening for metabolic disorder; Screening for prostate cancer; Abnormal finding of blood chemistry, unspecified; Vitamin B12 deficiency; Screening for AAA (abdominal aortic aneurysm) Start: 05-30-2024 End: 05-30-2024 ambulatory HARVINDER MENDOZA [facility] Start: 04-18-2024 End: 04-18-2024 Office outpatient visit 15 minutes Sana S Lyndora DO Work Phone: [facility] Comment on above: Statin myopathy (Ghada edy Dx); Elevated CPK; Screening for prostate cancer; Hyperlipidemia LDL goal <100 Start: 04-18-2024 End: 04-18-2024 ambulatory [facility] Start: 04-11-2024 End: 04-11-2024 ambulatory [facility] Start: 01-04-2024 End: 01-04-2024 ambulatory [facility] Start: 12-21-2023 End: 12-21-2023 ambulatory [facility] Start: 12-14-2023 End: 12-14-2023 ambulatory [facility] Start: 12-07-2023 End: 12-07-2023 ambulatory [facility] Start: 11-30-2023 End: 11-30-2023 Office outpatient visit 15 minutes Sana S Lyndora DO Work Phone: [facility] Comment on above: Alcohol consumption heavy (Primary Dx); Elevated CPK Start: 11-30-2023 End: 11-30-2023 ambulatory [facility] Start: 11-30-2023 End: 11-30-2023 ambulatory [facility] Start: 11-23-2023 End: 11-23-2023 ambulatory [facility] Start: 11-18-2023 End: 11-18-2023 ambulatory [facility] Start: 11-16-2023 End: 11-16-2023 ambulatory [facility] Start: 11-09-2023 End: 11-09-2023 ambulatory [facility] Start: 11-02-2023 End: 11-02-2023 Office outpatient new 45 minutes Aleshia Sahu Gile MILITARY PROFESSIONAL-GYMNASTIC TEACHER Work Phone: [facility] Comment on above: Chronic pain of both shoulders (Primary Dx); Cervical spine arthritis; AC joint arthropathy; 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 Start: 11-02-2023 End: 11-02-2023 ambulatory [facility] Start: 10-19-2023 End: 10-19-2023 Subsequent hospital visit by physician Marco Stauffery100 X-Ray [facility] Comment on above: Chronic pain of both shoulders Neck pain, chronic; Chronic pain of both shoulders Start: 10-19-2023 End: 10-19-2023 Office outpatient visit 15 minutes Sana S Lyndora DO Work Phone: [facility] [employer] [facility] Comment on above: Polyarthropathy (Ghada edy Dx); Neck pain, chronic; Chronic pain of both shoulders Start: 10-19-2023 End: 10-19-2023 ambulatory [facility] Start: 09-14-2023 End: 09-14-2023 Office outpatient visit 25 minutes Sana S Lyndora DO Work Phone: [facility] Comment on above: Polyarthropathy (Ghada edy Dx); Other fatigue; Gastroesophageal reflux disease without esophagitis; Gluten intolerance Start: 09-14-2023 End: 09-14-2023 ambulatory [facility] Start: 08-17-2023 End: 08-17-2023 Office outpatient visit 15 minutes Sana Doyle DO Work Phone: [facility] [employer] Comment on above: Medicare annual well ness visit, subsequent (Primary Dx); Hyperlipidemia LDL goal <100; Secondary hypertension; Hyperglycemia Start: 08-17-2023 End: 09-14-2023 Patient encounter procedure Sana Doyle DO Work Phone: [facility] Work Phone: Start: 08-17-2023 End: 08-17-2023 ambulatory [facility] Start: 08-17-2023 End: 08-17-2023 Encounter for general adult medical examination without abnormal findings [facility] Start: 08-14-2023 End: 08-14-2023 ambulatory [facility] Start: 11-17-2022 End: 11-17-2022 Office outpatient visit 25 minutes Sana Doyle DO Work Phone: [facility] [employer] Comment on above: Alopecia areata (Ghada edy Dx); Hyperglycemia; Secondary hypertension; Hyperlipidemia LDL goal <100 Start: 11-10-2022 Office outpatient ne w 45 minutes Sana Doyle Work Phone: [facility] Work Phone: Start: 11-10-[address] [place] Facility:[id number] Start: 05-13-[address] Sana Doyle Facility:[id number] Start: 05-13-2022 Chart Update Sana orellana Work Phone: [facility] [employer] [facility] Work Phone: Start: 04-18-2022 Rx Renewal Sana orellana Work Phone: [facility] Work Phone: Start: 11-11-2021 Office outpatient vi sit 25 minutes Sana Doyle Work Phone: [facility] Work Phone: Start: 11-05-2021 Chart Update Sana Sanchez al Work Phone: -[facility] Work Phone: Start: 10-21-2021 Rx Renewal Sana Sanchez al Work Phone: [facility] Work Phone: Start: 05-09-2021 Chart Update Sana Sanchez al Work Phone: [facility] Work Phone: Start: 11-12-2020 EPV, Provider: Sana Doyle, Status: Pen, Time: 8:40 AM Sana Doyle Work Phone: [facility] Work Phone: Start: 11-12-2020 Office outpatient vi sit 15 minutes Sana Doyle Work Phone: [facility] Work Phone: Start: 11-12-2020 Chart Update Sana Sanchez al Work Phone: [facility] Work Phone: Start: 10-28-2020 Rx Renewal Sana Sanchez al Work Phone: [facility] Work Phone: Start: 12-30-2019 Patient encounter procedure Avirup Mickey churchilla [id number] [address] Work Phone: Start: 12-22-2019 Patient encounter procedure Avirup G uha [id number] [address] Work Phone: Start: 11-28-2019 Patient encounter procedure [facility] Work Phone: Start: 11-21-2019 Patient encounter procedure Sana Doyle [facility] Work Phone: Start: 11-14-2019 Patient encounter procedure Sana Doyle [facility] Work Phone: Start: 07-19-2019 Patient encounter procedure Sana Doyle [facility] Work Phone: Start: 05-15-2017 End: 05-16-2017 Ambulatory Sana S Lyndora Facility:[facility] Start: 05-04-2017 End: 05-05-2017 Ambulatory Sana Edgar [facility] Services:[facility] Patient encounter procedure Ubaldo Hernández Lyndora Work Phone: [facility] Work Phone: Patient encounter status Suzanne Hernández Lyndora Work Phone: [facility] Work Phone: Procedures Date Procedure Procedure Detail Performing Clinician Start: 04-11-2024 Lipid 1996 panel - S griselda or Plasma [facility] DO Work Phone: Start: 09-14-2023 JOSE WITHOUT [...] panel - S griselda or Plasma Sana Doyle DO Work Phone: Start: 12-22-2019 Echocardiography Avirup Rocky Start: 12-09-2019 Echocardiography Avirup Rocky Start: 11-28-2019 Basic metabolic 1998 panel - Serum or Plasma Avirup Rocky Start: 11-28-2019 Cta hrt cornry art/b ypass grfts contrst 3d post Avirup Rocky Start: 11-28-2019 Sleep std airflow hr t rate&o2 sat effort unatt Avirup Rocky Start: 11-17-2019 Syngo Nuclear Order Ynes yoliely Lyndora Start: 11-14-2019 NM Cardiac Stress/Re st Nuclear Med Order Sana Lyndora Start: 10-24-2019 End: 10-24-2019 Colonoscopy Sana Doyle Colonoscopy Sana Doyle Comment on above: 10/2019; Plan of Treatment Date Care Activity Detail Author Start: 10-23-2029 Screening for malign ant neoplasm of colon [facility] Start: 2029 Respiratory Syncytia l Virus Immunization: Risk, 60-74 Risk, or 75+ (1 - 1-dose 75+ series) Respiratory Syncytial Virus Immunization: Risk, 60-74 Risk, or 75+ (1 - 1-dose 75+ series) [facility] Start: 04-11-2029 Lipid panel Lipid Panel [facility] Start: 11-09-2027 Lipid panel Lipid Panel [facility] Start: 11-11-2026 Prostate specific antigen measurement PSA Level [facility] Start: 08-13-2026 Diabetes mellitus screening Diabetes Screening [facility] Start: 11-20-2025 End: 11-20-2025 Patient encounter procedure 11/20/2025 8:00 AM EDT Office Visit [facility] [address] [place] [address] Harvinder Mendoza, DO [address] [address] [facility] Start: 11-14-2025 Fall risk assessment Falls Risk Asse ssment [facility] Start: 11-14-2025 Medicare Wellness Visit Medicare Wel lness Visit [facility] Start: 06-24-2026 Diabetes mellitus screening Diabetes Screening [facility] Start: 05-30-2025 Depression screening using PHQ-9 (Patient Health Questionnaire 9) score Depression Screening/Follow-Up (PHQ-2/9) [facility] Start: 02-20-2025 End: 02-20-2025 Patient encounter procedure 02/20/2025 7:20 AM EDT Office Visit [facility] [address] [place] [address] Harvinder Mendoza DO [address] [address] [facility] Start: 01-16-2025 Influenza vaccination Influenza Vacc ine (#1) [facility] Start: 11-21-2024 End: 11-21-2024 Patient encounter procedure 11/21/2024 8:40 AM EDT Office Visit [facility] [address] [place] [address] Harvinder Mendoza DO [address] [address] [facility] Start: 09-05-2024 End: 09-05-2024 Patient encounter procedure 09/05/2024 9:00 AM EDT Office Visit [address] [phone] Sana Doyle DO [address] [place] [id number] [facility] Start: 08-31-2024 End: 04-18-2025 Creatine kinase [Enzymatic activity/volume] in Serum or Plasma CK Lab Routine Elevated CPK Expected: 08/31/2024 (Approximate), Expires: 04/18/2025 [facility] Work Phone: Comment on above: Expected: 08/31/2024 (Approximate), Expires: 04/18/2025 Start: 08-31-2024 End: 04-18-2025 Hepatic function 2000 panel - Serum or Plasma Hepatic Function Panel Lab Routine Hyperlipidemia LDL goal <100 Expected: 08/31/2024 (Approximate), Expires: 04/18/2025 [facility] Work Phone: Comment on above: Expected: 08/31/2024 (Approximate), Expires: 04/18/2025 Start: 08-31-2024 End: 04-18-2025 Lipid 1996 panel - Serum or Plasma Lipid Panel Lab Routine Hyperlipidemia LDL goal <100 Expected: 08/31/2024 (Approximate), Expires: 04/18/2025 [facility] Work Phone: Comment on above: Expected: 08/31/2024 (Approximate), Expires: 04/18/2025 Start: 08-31-2024 End: 04-18-2025 Prostate specific Ag [Mass/volume] in Serum or Plasma Prostate Spec.Ag,Screen Lab Routine Screening for prostate cancer Expected: 08/31/2024 (Approximate), Expires: 04/18/2025 [facility] Work Phone: Comment on above: Expected: 08/31/2024 (Approximate), Expires: 04/18/2025 Start: 08-28-2024 End: 05-30-2025 Cobalamin (Vitamin B12) [Mass/volume] in Serum or Plasma Vitamin B12 Lab Routine Vitamin B12 deficiency Expected: 08/28/2024 (Approximate), Expires: 05/30/2025 [facility] Comment on above: Expected: 08/28/2024 (Approximate), Expires: 05/30/2025 Start: 08-28-2024 End: 05-30-2025 Complete blood count with white cell differential, manual CBC and Differential Lab Routine Alopecia totalis Expected: 08/28/2024 (Approximate), Expires: 05/30/2025 [facility] Comment on above: Expected: 08/28/2024 (Approximate), Expires: 05/30/2025 Start: 08-28-2024 End: 05-30-2025 Comprehensive metabolic 2000 panel - Serum or Plasma Comprehensive Metabolic Panel Lab Routine Alopecia totalis Expected: 08/28/2024 (Approximate), Expires: 05/30/2025 [facility] Comment on above: Expected: 08/28/2024 (Approximate), Expires: 05/30/2025 Start: 08-28-2024 End: 05-30-2025 Hemoglobin A1c/Hemoglobin.total in Blood Hemoglobin A1c Lab Routine Overweight (BMI 25.0-29.9) Screening for metabolic disorder Abnormal finding of blood chemistry, unspecified Expected: 08/28/2024 (Approximate), Expires: 05/30/2025 [facility] Comment on above: Expected: 08/28/2024 (Approximate), Expires: 05/30/2025 Start: 08-28-2024 End: 05-30-2025 Prostate specific Ag [Mass/volume] in Serum or Plasma PSA, Screen Lab Routine Screening for prostate cancer Expected: 08/28/2024 (Approximate), Expires: 05/30/2025 [facility] Comment on above: Expected: 08/28/2024 (Approximate), Expires: 05/30/2025 Start: 08-28-2024 End: 05-30-2025 Thyrotropin [Units/volume] in Serum or Plasma TSH with Reflex Free T4 Lab Routine Alopecia totalis Screening for metabolic disorder Expected: 08/28/2024 (Approximate), Expires: 05/30/2025 [facility] Comment on above: Expected: 08/28/2024 (Approximate), Expires: 05/30/2025 Start: 08-17-2024 Medicare Annual Well ness Visit Medicare Annual Wellness Visit (AWV) [facility] Start: 06-09-2024 End: 06-09-2024 Patient encounter procedure 06/09/2024 8:00 AM EST Appointment [facility] [address] [place] [address] Harvinder Mendoza, DO [address] [place] [id number] [facility] Start: 02-29-2024 End: 02-29-2024 Patient encounter procedure [facility] Start: 02-16-2024 End: 08-16-2024 Basic metabolic 2000 panel - Serum or Plasma Basic Metabolic Panel Lab Routine Secondary hypertension Expected: 02/16/2024 (Approximate), Expires: 08/16/2024 [facility] Service Area Work Phone: Comment on above: Expected: 02/16/2024 (Approximate), Expires: 08/16/2024 Start: 02-16-2024 End: 08-16-2024 Lipid 1996 panel - Serum or Plasma Lipid Panel Lab Routine Hyperlipidemia LDL goal <100 Expected: 02/16/2024 (Approximate), Expires: 08/16/2024 [facility] Work Phone: Comment on above: Expected: 02/16/2024 (Approximate), Expires: 08/16/2024 Start: 01-25-2024 End: 11-29-2024 Creatine kinase [Enzymatic activity/volume] in Serum or Plasma CK Lab Routine Elevated CPK Expected: 01/25/2024 (Approximate), Expires: 11/29/2024 [facility] Work Phone: Comment on above: Expected: 01/25/2024 (Approximate), Expires: 11/29/2024 Start: 01-17-2024 COVID-19 Vaccine ( season) COVID-19 Vaccine ( season) [facility] Start: 01-17-2024 COVID-19 Vaccine ( season) COVID-19 Vaccine ( season) [facility] Start: 01-17-2024 Influenza vaccination Influenza Vacc ine (#1) [facility] Start: 01-04-2024 End: 01-04-2024 ambulatory 01/04/2024 8:00 AM EDT Treatment [facility] [address] [place] [id number] Mervin Betancourt, PT [address] [facility] [place], [place] [id number] [facility] Start: 12-28-2023 End: 12-28-2023 ambulatory 12/28/2023 8:30 AM EDT Treatment [facility] [address] [place] [phone] Lizbeth Vieira, RELIABILITY ENGINEER [address] [place] [address] [facility] Start: 12-21-2023 End: 12-21-2023 ambulatory 12/21/2023 8:30 AM EDT Treatment [address] [place] [address] Lizbeth Vieira, RELIABILITY ENGINEER [address] [place] [address] [facility] Start: 12-14-2023 End: 12-14-2023 ambulatory 12/14/2023 7:00 AM EDT Treatment [address] [phone] Josef Collier, RELIABILITY ENGINEER [address] [place] [address] [facility] Start: 12-07-2023 End: 12-07-2023 ambulatory 12/07/2023 7:45 AM EDT Treatment [address] [address] Lizbeth Vieira, RELIABILITY ENGINEER [address] [place] [address] [facility] Start: 11-30-2023 End: 11-29-2024 Cobalamin (Vitamin B12) [Mass/volume] in Serum or Plasma Vitamin B12 Lab Routine Elevated CPK Expected: 11/30/2023 (Approximate), Expires: 11/29/2024 [facility] Work Phone: Comment on above: Expected: 11/30/2023 (Approximate), Expires: 11/29/2024 Start: 11-30-2023 End: 11-29-2024 Phosphate [Mass/volume] in Serum or Plasma Phosphorus Lab Routine Elevated CPK Expected: 11/30/2023 (Approximate), Expires: 11/29/2024 [facility] Service Area Work Phone: Comment on above: Expected: 11/30/2023 (Approximate), Expires: 11/29/2024 Start: 11-30-2023 End: 11-30-2023 ambulatory 11/30/2023 1:40 PM EDT Lab [facility] [address] [place] [address] Arrived [facility] Comment on above: Arrived Start: 11-09-2023 End: 11-09-2023 ambulatory 11/09/2023 10:15 AM EDT Evaluation [facility] [address] [place] [address] Mervin Betancourt, PT [address] [facility] [place] [id number] [facility] Start: 11-02-2023 End: 11-02-2023 Patient encounter procedure 11/02/2023 8:45 AM EDT Office Visit [facility] [address] [place] [id number] Aleshia Elaine, MILITARY PROFESSIONAL-GYMNASTIC TEACHER [address] [facility], [address] [place] [id number] [facility] Start: 10-19-2023 End: 10-18-2024 Creatine kinase [Enzymatic activity/volume] in Serum or Plasma CK Lab Routine Polyarthropathy Expected: 10/19/2023 (Approximate), Expires: 10/18/2024 [facility] Service Area Work Phone: Comment on above: Expected: 10/19/2023 (Approximate), Expires: 10/18/2024 Start: 10-19-2023 End: 10-18-2024 XR Cervical spine 2 or 3 Views [facility] Work Phone: Comment on above: Expected: 10/19/2023 (Approximate), Expires: 10/18/2024 Once for 1 Occurrenc es starting 10/19/2023 until 10/19/2023 Start: 10-19-2023 End: 10-18-2024 XR Shoulder - left 2 Views [facility] Work Phone: Comment on above: Expected: 10/19/2023 (Approximate), Expires: 10/18/2024 Once for 1 Occurrenc es starting 10/19/2023 until 10/19/2023 Start: 10-19-2023 End: 10-18-2024 XR Shoulder - right 2 Views [facility] Work Phone: Comment on above: Expected: 10/19/2023 (Approximate), Expires: 10/18/2024 Once for 1 Occurrenc es starting 10/19/2023 until 10/19/2023 Start: 09-14-2023 End: 09-13-2024 Borrelia burgdorferi DNA [Presence] in Unspecified specimen by ANDRES with probe detection Lyme disease, PCR Lab Routine Polyarthropathy Expected: 09/14/2023 (Approximate), Expires: 09/13/2024 [facility] Work Phone: Comment on above: Expected: 09/14/2023 (Approximate), Expires: 09/13/2024 Start: 09-14-2023 End: 09-13-2024 C reactive protein [Mass/volume] in Serum or Plasma C-reactive protein Lab Routine Polyarthropathy Expected: 09/14/2023 (Approximate), Expires: 09/13/2024 [facility] Work Phone: Comment on above: Expected: 09/14/2023 (Approximate), Expires: 09/13/2024 Start: 09-14-2023 End: 09-13-2024 CBC W Auto Differential panel - Blood CBC and Auto Differential Lab Routine Polyarthropathy Other fatigue Expected: 09/14/2023 (Approximate), Expires: 09/13/2024 [facility] Work Phone: Comment on above: Expected: 09/14/2023 (Approximate), Expires: 09/13/2024 Start: 09-14-2023 End: 09-13-2024 Creatine kinase [Enzymatic activity/volume] in Serum or Plasma CK Lab Routine Polyarthropathy Expected: 09/14/2023 (Approximate), Expires: 09/13/2024 [facility] Work Phone: Comment on above: Expected: 09/14/2023 (Approximate), Expires: 09/13/2024 Start: 09-14-2023 End: 09-13-2024 Erythrocyte sedimentation rate Sedimentation Rate Lab Routine Polyarthropathy Expected: 09/14/2023 (Approximate), Expires: 09/13/2024 [facility] Service Area Work Phone: Comment on above: Expected: 09/14/2023 (Approximate), Expires: 09/13/2024 Start: 09-14-2023 End: 09-13-2024 Nuclear Ab [Presence] in Serum by Hep2 substrate JOSE Lab Routine Polyarthropathy Expected: 09/14/2023 (Approximate), Expires: 09/13/2024 [facility] Work Phone: Comment on above: Expected: 09/14/2023 (Approximate), Expires: 09/13/2024 Start: 09-14-2023 End: 09-13-2024 Rheumatoid factor [Units/volume] in Serum by Nephelometry Rheumatoid factor Lab Routine Polyarthropathy Expected: 09/14/2023 (Approximate), Expires: 09/13/2024 [facility] Work Phone: Comment on above: Expected: 09/14/2023 (Approximate), Expires: 09/13/2024 Start: 05-20-2023 End: 11-18-2023 Basic metabolic 2000 panel - Serum or Plasma Basic Metabolic Panel Lab Routine Hyperglycemia Expected: 05/20/2023 (Approximate), Expires: 11/18/2023 [facility] Service Area Work Phone: Comment on above: Expected: 05/20/2023 (Approximate), Expires: 11/18/2023 Start: 05-20-2023 End: 11-18-2023 Hemoglobin A1c/Hemoglobin.total in Blood Hemoglobin A1C Lab Routine Hyperglycemia Expected: 05/20/2023 (Approximate), Expires: 11/18/2023 [facility] Work Phone: Comment on above: Expected: 05/20/2023 (Approximate), Expires: 11/18/2023 Start: 05-14-2023 Medicare Annual Well ness Visit Medicare Annual Wellness Visit (AWV) [facility] Start: 01-16-2023 COVID-19 Vaccine () COVID-19 Vaccine () [facility] Start: 01-16-2023 Influenza vaccination Influenza Vacc ine (#1) [facility] Start: 11-17-2022 End: 11-18-2023 Thyrotropin [Units/volume] in Serum or Plasma TSH Lab Routine Alopecia areata Expected: 11/17/2022 (Approximate), Expires: 11/18/2023 [facility] Work Phone: Comment on above: Expected: 11/17/2022 (Approximate), Expires: 11/18/2023 Start: 11-17-2022 EPV, Provider: Sana Doyle, Status: Pen, Time: 8:00 AM EPV, Provider: Sana Doyle, Status: Pen, Time: 8:00 AM [facility] Work Phone: Start: 05-13-2022 EPV, Provider: Sana Doyle, Status: Pen, Time: 8:20 AM EPV, Provider: Sana Doyle, Status: Pen, Time: 8:20 AM [facility] Work Phone: Start: 11-11-2021 EPV, Provider: Sana Doyle, Status: Pen, Time: 9:00 AM EPV, Provider: Sana Doyle, Status: Pen, Time: 9:00 AM [facility] Work Phone: Start: 05-15-2021 Patient encounter procedure MCRANNUAL, Provider: Sana Doyle, Status: Pen, Time: 9:00 AM [facility] Work Phone: Start: 05-14-2021 Pneumococcal vaccination Pneum ococcal Vaccine (2 of 2 - PCV) [facility] Start: 05-14-2021 Pneumococcal Vaccine : 65+ Years (2 - PCV) Pneumococcal Vaccine: 65+ Years (2 - PCV) [facility] Start: 05-14-2021 Pneumococcal Vaccine : 65+ Years (2 of 2 - PCV) Pneumococcal Vaccine: 65+ Years (2 of 2 - PCV) [facility] Start: 05-14-2021 Pneumococcal Vaccine : Age 50+ (2 of 2 - PCV) Pneumococcal Vaccine: Age 50+ (2 of 2 - PCV) [facility] Start: 05-13-2021 Patient encounter procedure MCRANNUAL, Provider: Sana Doyle, Status: Pen, Time: 3:20 PM [facility] Work Phone: Start: 11-16-2020 DTaP/Tdap/Td Vaccine s (2 - Td or Tdap) DTaP/Tdap/Td Vaccines (2 - Td or Tdap) [facility] Start: 11-16-2020 Tetanus vaccination Tetanus: Every 1 0yrs [facility] Start: 11-12-2020 EPV, Provider: Sana Doyle, Status: Pen, Time: 8:40 AM EPV, Provider: Sana Doyle, Status: Pen, Time: 8:40 AM [employer] Work Phone: Start: 12-22-2019 Cta hrt cornry art/bypass grfts contrst 3d post CT Angio Coronary Arteries with Heart Flow [facility] [employer] Work Phone: Start: 12-22-2019 Echocardiography Echocardiogram [facility] [employer] Work Phone: Start: 11-28-2019 Sleep std airflow hr t rate&o2 sat effort unatt Home Sleep Apnea Test [facility] [employer] Phone: Start: 11-21-2019 Syngo Nuclear Order Seen Work Phone: Start: 08-30-2019 Fall risk assessment Falls Risk Asse ssment [facility] Start: 2014 Hepatitis B Vaccines (1 of 3 - Risk 3-dose series) Hepatitis B Vaccines (1 of 3 - Risk 3-dose series) [facility] Start: 2014 Respiratory Syncytia l Virus Immunization: Risk, 60-74 Risk, or 75+ (1 - Risk 60-74 years 1-dose series) Respiratory Syncytial Virus Immunization: Risk, 60-74 Risk, or 75+ (1 - Risk 60-74 years 1-dose series) [facility] Start: 2014 RSV High Risk: (Elde rly (60+) or Population) (1 - Risk 60-74 years 1-dose series) RSV High Risk: (Elderly (60+) or Population) (1 - Risk 60-74 years 1-dose series) [facility] Start: 2014 RSV patient s and/or patients aged 60+ years (1 - 1-dose 60+ series) RSV patients and/or patients aged 60+ years (1 - 1-dose 60+ series) [facility] Start: 2004 Screening for malign ant neoplasm of colon Flexible sigmoidoscopy [facility] Start: 2004 Zoster Vaccines (1 of 2) Zoste r Vaccines (1 of 2) [facility] Start: 1972 Hepatitis C screening Hepatitis C Sc otoniel [facility] Start: 1957 Medicare Wellness Visit Medicare Wel lness Visit [facility] Start: 02-28-1955 COVID-19 Vaccine (#1) COVID-19 Vacci ne (#1) [facility] Start: 1954 Abdominal aortic aneurysm screening Abdominal Aortic Ultrasound [facility] Start: 1954 Medicare Annual Well ness Visit Medicare Annual Wellness Visit (AWV) [facility] Start: 1954 Prostate specific antigen measurement PSA Level [facility] Start: 1954 Screening for malign ant neoplasm of colon [facility] End: 11-28-2025 Comprehensive metabolic 2000 panel - Serum or Plasma Comprehensive Metabolic Panel Lab Routine Mixed hyperlipidemia 1 Occurrences starting 11/28/2024 until 11/28/2025 [facility] Work Phone: Comment on above: 1 Occurrences starti ng 11/28/2024 until 11/28/2025 End: 11-13-2025 Lipid 1996 panel - Serum or Plasma Lipid Panel Lab Routine Mixed hyperlipidemia 1 Occurrences starting 11/14/2024 until 11/13/2025 [facility] Work Phone: Comment on above: 1 Occurrences starti ng 11/14/2024 until 11/13/2025 End: 11-28-2025 Lipid 1996 panel - Serum or Plasma Lipid Panel Lab Routine Mixed hyperlipidemia 1 Occurrences starting 11/28/2024 until 11/28/2025 [facility] Comment on above: 1 Occurrences starti ng 11/28/2024 until 11/28/2025 End: 07-28-2025 Ultrasound abd aortic aneurysm screen Ultrasound abd aortic aneurysm screen Imaging Routine Screening for AAA (abdominal aortic aneurysm) 1 Occurrences starting 05/30/2024 until 07/28/2025 [facility] Work Phone: Comment on above: 1 Occurrences starti ng 05/30/2024 until 07/28/2025 US.doppler Lower extremity vein [facility] Work Phone: NEGATED: Highlighted row has been ruled out! Planned Goals not documented [facility] [employer] Work Phone: Immunizations Immunization Date Immunization Notes Care Provider Dipika mcknight 02-29-2024 influenza, high dose seasonal, preservative-free Harvinder Reji DO Work Phone: [facility] 02-29-2024 influenza virus vacc ine, unspecified formulation Harvinder Reji DO Work Phone: [facility] 02-16-2023 Flu vaccine, quadrivalent, high-dose, preservative free, age 65y+ (FLUZONE) Sana Lyndora DO Work Phone: [facility] Work Phone: 02-16-2023 influenza virus vacc ine, unspecified formulation Sana Lyndora DO Work Phone: [facility] Work Phone: 02-11-2022 Fluzone High-Dose Quadrivalent 0.7 ML Intramuscular Suspension Prefilled Syringe [employer] Work Phone: [facility] Work Phone: 02-11-2022 influenza virus vacc ine, unspecified formulation Sana Lyndora DO Work Phone: [facility] Work Phone: 11-03-2021 zoster vaccine recombinant [employer] Work Phone: [facility] Work Phone: 08-24-2021 zoster vaccine recombinant [employer] Work Phone: [facility] Work Phone: 04-21-2021 Pfizer-BioNTech COVI D-19 Vacc 30 MCG/0.3ML Intramuscular Suspension [facility] Work Phone: [facility] Work Phone: 03-15-2021 influenza, seasonal, injectable [facility] Work Phone: [facility] Work Phone: Comment on above: Series: 02-19-2021 Fluzone High-Dose Quadrivalent 0.7 ML Intramuscular Suspension Prefilled Syringe [facility] Work Phone: [facility] [employer] [facility] Work Phone: 08-13-2020 Pfizer-BioNTech COVI D-19 Vacc 30 MCG/0.3ML Intramuscular Suspension [employer] Work Phone: [facility] Work Phone: 07-23-2020 Pfizer-BioNTech COVI D-19 Vacc 30 MCG/0.3ML Intramuscular Suspension Sana [employer] Work Phone: [facility] [employer] [facility] Work Phone: 05-14-2020 pneumococcal polysaccharide vaccine, 23 valent Sana S Lyndora Work Phone: [facility] Comment on above: Series: 03-15-2020 influenza, seasonal, injectable Sana S Lyndora Work Phone: [facility] Work Phone: Comment on above: Series: 02-15-2019 influenza virus vacc ine, unspecified formulation Sana S Lyndora Work Phone: [facility] Work Phone: Comment on above: Series: 02-15-2019 influenza, seasonal, injectable Sana Lyndora [facility] Work Phone: 02-15-2017 influenza virus vacc ine, unspecified formulation; Translations: [influenza virus vaccine, unspecified formulation] Sana Lyndora -[facility] Work Phone: Comment on above: Series: 12-12-2013 hepatitis A vaccine, adult dosage Sana Lyndora DO Work Phone: [facility] 12-12-2013 hepatitis A vaccine, unspecified formulation Sana Lyndora [facility] Work Phone: Comment on above: Series: 06-14-2013 hepatitis A vaccine, adult dosage Sana Lyndora DO Work Phone: [facility] Work Phone: 06-14-2013 hepatitis A vaccine, unspecified formulation Sana Lyndora [facility] Work Phone: Comment on above: Series: 11-16-2010 tetanus toxoid, redu tere diphtheria toxoid, and acellular pertussis vaccine, adsorbed Sana Lyndora [facility] Work Phone: Comment on above: Series: Payers Date Payer Category Payer Self-pay 2019 Medicare [id number] 2019 Medicare supplementa l policy (as second payer) [id number] 2019 Private Health Insurance JADON Hernández UPPLEMENTAL JADON SENIOR SUPPLEMENT [id number] 2019-Present P Yael Kim [id number] [place] [address] [id number] 2019 Medicare [id number] 2019 Private Health Insurance CLI [id number] 2017 Unknown 1954 Unknown [id number] 2.16.840.1.863473.3.57 9.2.356 1954 Unknown [id number] 2.16.840.1.416581.3.57 9.2.356 1954 Unknown [id number] 2.16.840.1.238487.3.57 9.2.124 1954 Unknown [id number] 2.16.840.1.699449.3.57 9.2.1245 1954 Unknown [id number] 2.16.840.1.420454.3.57 9.2.124 1954 Unknown [id number] 2.16.840.1.899563.3.57 9.2.1245 1954 Unknown [id number] 2.16.840.1.046725.3.57 9.2.124 1954 Unknown [id number] 2.16.840.1.105759.3.57 9.2.1245 1954 Unknown [id number] 2.16.840.1.240581.3.57 9.2.124 1954 Unknown [id number] 2.16.840.1.441301.3.57 9.2.1244 1954 Unknown [id number] 2.16.840.1.197981.3.57 9.2.124 1954 Unknown [id number] 2.16.840.1.211847.3.57 9.2.1244 1954 Unknown [id number] 2.16.840.1.985400.3.57 9.2.1243 1954 Unknown [id number] 2.16.840.1.407548.3.57 9.2.124 1954 Unknown [id number] 2.16.840.1.422001.3.57 9.2.903 1954 Unknown [id number] 2.16.840.1.542151.3.57 9.2.1242 1954 Unknown [id number] 2.16.840.1.413818.3.57 9.2.1242 1954 Unknown [id number] 2.16.840.1.211761.3.57 9.2.1242 1954 Unknown [id number] 2.16.840.1.833087.3.57 9.2.1242 1954 Unknown [id number] 2.16.840.1.589025.3.57 9.2.1242 1954 Unknown [id number] 2.16.840.1.379912.3.57 9.2.1242 1954 Unknown [id number] 2.16.840.1.058146.3.57 9.2.1242 1954 Unknown [id number] 2.16.840.1.690492.3.57 9.2.1242 1954 Unknown [id number] 2.16.840.1.227676.3.57 9.2.1242 1954 Unknown [id number] 2.16.840.1.233591.3.57 9.2.1242 1954 Unknown [id number] 2.16.840.1.590020.3.57 9.2.1242 1954 Unknown [id number] 2.16.840.1.970387.3.57 9.2.1243 1954 Unknown [id number] 2.16.840.1.983634.3.57 9.2.903 1954 Unknown [id number] 2.16.840.1.228287.3.57 9.2.903 1954 Unknown [id number] 2.16.840.1.272676.3.57 9.2.903 Unknown [id number] 2.16.840.1.426532.3.57 9.2.462 Unknown [id number] 2.16.840.1.346571.3.57 9.2.462 Unknown [id number] 2.16.840.1.142502.3.57 9.2.462 Unknown [id number] 2.16840.1.548663.3.57 9.2.462 Unknown [id number] 2.840.1.123783.3.57 9.2.462 Unknown [id number] 2.16840.1.050625.3.57 9.2.462 Unknown [id number] 2.16840.1.564723.3.57 9.2.462 Unknown [id number] 2.16840.1.313336.3.57 9.2.462 Unknown [id number] 2.16840.1.163988.3.57 9.2.462 Unknown [id number] 2.16840.1.310004.3.57 9.2.462 Unknown [id number] 2.16840.1.453453.3.57 9.2.462 Unknown [id number] 2.16840.1.745995.3.57 9.2.462 Unknown [id number] 2.16840.1.151465.3.57 9.2.462 Unknown [id number] 2.16.840.1.062398.3.57 9.2.462 Social History Date Type Detail Facility Start: 11-17-2022 End: 05-30-2024 No advance directives No advance directives [facility] Work Phone: Start: 11-17-2022 Tobacco smoking status NHIS Never smoked tobacco [facility] Work Phone: Start: 11-17-2022 End: 05-30-2024 Tobacco use and exposure Smokeless tobacco non-user [facility] Work Phone: Start: 11-17-2022 End: 08-26-2024 Alcohol intake Ex-drinker (finding) [facility] Work Phone: Start: 11-17-2022 End: 05-30-2024 Tobacco use panel [facility] Work Phone: Start: 1955 [facility] Start: 11-07-2022 End: 08-26-2024 Exposure to SARS-CoV-2 (event) Not sure [facility] Start: 05-30-2024 End: 09-05-2024 Tobacco smoking status NHIS Ex-smoker [facility] Start: 05-18-1995 History of tobacco use Current smoker [facility] Start: 05-18-1995 History of tobacco use Cigarette Smoker [facility] Start: 06-03-2024 End: 11-14-2024 Alcoholic beverage intake Current drinker of alcohol (finding) [facility] Adult Depression Screening Assessment 0 [facility] Start: 05-30-2024 Alcohol Comment 2-3 beers/day on weekend days, 6-8 drinks/week [facility] Start: 05-26-2024 Gender identity Identifies as male gender (finding) [facility] Start: 05-26-2024 Sexual orientation Heterosexual (fin david) [facility] Start: 08-04-2024 End: 08-18-2024 Sex Male (finding) [facility] Start: 1955 Sex Assigned At Male [facility] NEGATED: Highlighted row - - [facility] Work Phone: Functional Status Date Assessment Result Facility NEGATED: Highlighted row Functional performance Functional status health issues are not documented Disease [facility] Work Phone: Mental Status Date Assessment Result Facility NEGATED: Highlighted row Cognitive function [Interpretation] Cognitive status health issues are not documented Disease [facility] Work Phone: Clinical Notes 11-07-2022 to 11-17-2024 Assessment & Plan Note - Harvinder Mendoza, - 11/14/2024 10:45 PM EDTAssessment & Plan Note - Harvinder Mendoza, - 11/14/2024 10:45 PM EDTPHarvinder franco, - 11/14/2024 7:43 AM EDT Note Date & Type Note Facility 11-17-2024 Note If he agrees, I woul d send rosuvastatin 5 mg daily to his pharmacy. Please let me know what he decides. AUTHENTICATED BY HARVINDER MENDOZA, ON 11/17/2024 15:31:39 [facility] 11-14-2024 Evaluation + Plan note Associated Problem(s): Mixed hyperlipidemia Hx statin myopathy with atorvastatin, and elevated CK. Taking red yeast rice and fish oil supplements. Check updated lipid panel. If not improving, consider rosuvastatin or pravastatin. [facility] 11-14-2024 Miscellaneous Notes Associated Problem(s): Mixed hyperlipidemia Hx statin myopathy with atorvastatin, and elevated CK. Taking red yeast rice and fish oil supplements. Check updated lipid panel. If not improving, consider rosuvastatin or pravastatin. Associated Problem(s): Gastroesophageal reflux disease Symptoms well-controlled, now taking pantoprazole 20 mg daily as needed. Continue. Associated Problem(s): Hypertension BP goal <130/90. Well-controlled on lisinopril 20 mg daily. Continue. - Check renal function annually Associated Problem(s): Medicare annual wellness visit, subsequent Medicare wellness visit completed today. Mini cog score 2; patient was anxious about this test. Denies any concerns. Fall screening completed. Review of medical history completed. documented in this encounter [facility] 11-14-2024 Evaluation + Plan note Associated Problem(s): Gastroesophageal reflux disease Symptoms well-controlled, now taking pantoprazole 20 mg daily as needed. Continue. [facility] 11-14-2024 Evaluation + Plan note Associated Problem(s): Hypertension BP goal <130/90. Well-controlled on lisinopril 20 mg daily. Continue. - Check renal function annually [facility] 11-14-2024 Evaluation + Plan note Associated Problem(s): Medicare annual wellness visit, subsequent Medicare wellness visit completed today. Mini cog score 2; patient was anxious about this test. Denies any concerns. Fall screening completed. Review of medical history completed. [facility] 11-14-2024 History of Presen t illness Narrative Subjective: Nancie Patel is a 69 y.o. male here for a Medicare Annual Wellness Visit. Cough/GERD 3 months ago, started pantoprazole 20 mg with dinner for GERD. He reports taking it daily for about a month, then decreasing to as needed. Symptoms are well-controlled. Cough has resolved. HLD He has history of statin myopathy with atorvastatin. Instead, he began fish oil and red yeast rice supplementation 6 months ago. Superficial RLE thrombus He reports he just completed his course of anticoagulation. He follows with vascular and is planning an ablation procedure for his left superficial vein, and possibly right in the future. Would like to lose some weight, goal [phone] Daughter is HCPOA. Review of Systems Reviewed by Provider: Tobacco Allergies Meds Problems Med Hx Surg Hx Fam Hx Care Team Patient Care Team: Harvinder Mendoza DO as PCP - General (Family Medicine) Jaylin Johnson MD as Consulting Physician (Dermatology) Lizbeth Guevara PA-C (Vascular Surgery) Pharmacy / Equipment Co. (DME) [id number] - [place], [place] - [address] [facility] [address] Medicare Risk Assessment Do you have an Advanced Directive (Living Will and/or Durable Power of Mechanical Test Technician for Health Care)? If not, would you like more information about Advanced Directives?: No Would you like more information about Advance Directives?: No What is your exercise level?: Light (like stretching/slow walking) What is your diet?: Regular Can you prepare your own meals?: Yes Do you have trouble with finding transportation?: No Because of any health problems, do you need the help of another person with your personal care needs? (For example, eating, bathing, dressing, or getting around the house.): No Does your home have any of the following?: None of the above Does your home have grab bars in bathrooms or handrails on stairs and steps?: (!) Only handrails on the stairs During the past four weeks, how would you rate your health in general?: Good Whether or not you use a hearing aid, do you think you have a hearing problem or do others think you have a hearing problem?: No Whether or not you use glasses or contacts, do you have difficulty driving, watching television, reading, or doing any of your daily activities because of your eyesight?: No In the past six months, have you had an unexplained weight loss of 10 pounds or more?: No Do you take your medications as prescribed?: I do not miss doses of my medications During the past four weeks, how much have you been bothered by emotional problems such as feeling anxious, depressed, irritable, sad, or downhearted and blue?: Not at all During the past four weeks, has your physical and emotional health limited your social activites with family, friends, neighbors, or groups? : Not at all Falls Risk Assessment Is Patient Ambulatory?: N Fell in past year: 0 (No) Did any of these falls result in an injury?: No Unsteady when walks: 0 (No) Worried about fallin (No) Advised to use cane/walker?: 0 (No) Holds onto furniture/giron: 0 (No) Uses hands to stand up from a chair: 0 (No) Trouble stepping onto curb: 0 (No) Rushes to toilet: 0 (No) Lost feeling in feet: 0 (No) Medicine makes me light-headed: 0 (No) Medicine for sleep or mood: 0 (No) Often feel sad/depressed: 0 (No) Patient Self Risk Assessment Score: 0 Have you had your vision checked in the past 12 months?: (Patient-Rptd) Yes Medicare Mini Cog Step 1: Three Word Registration Look directly at person and say, Please listen carefully. I am going to say three words that I want you to repeat back to me now and try to remember. The words are [select a list of words from the versions to the right]. Use a different list each time.: giovanna kowalski,esperanza, Version Used: Version 2: Giovanna Kowalski Table Step 2: Clock Drawing Step 2 score: Normal clock - 2 points Clock has all numbers placed in the correct sequence & position (e.g., 12, 3, 6 and 9 are in anchor positions) with no missing or duplicate numbers. Hands are pointing to the 11 & 2 (11:10). Hand length is not scored. Step 3: Three Word Recall Step 3: Three Word Recall Score: No Words Recalled Total score = Word Recall score + Clock Draw score A cut point of <3 on the Mini-Cog has been validated for dementia screening, but many individuals with clinically meaningful cognitive impairment will score higher. A cut point of <4 may indicate a need for further evaluation of cognitive status.: (!) 2 5-Year Plan: Health Maintenance Topic Date Due Hepatitis C Screening Never done Respiratory Syncytial Virus Immunization: Risk, 60-74 Risk, or 75+ (1 - Risk 60-74 years 1-dose series) Never done Tetanus: Every 10yrs 11/16/2020 Pneumococcal Vaccine: Age 50+ (2 of 2 - PCV) 05/14/2021 COVID-19 Vaccine (4 - season) 2024 Depression Screening/Follow-Up (PHQ-2/9) 05/30/2025 Falls Risk Assessment 11/14/2025 Medicare Wellness Visit 11/14/2025 PSA Level 11/11/2026 Colorectal Cancer Screening/Monitoring 10/23/2029 Abdominal Aortic Ultrasound Completed Zoster Vaccines Completed Influenza Vaccine Completed Immunization History Administered Date(s) Administered Hep A, 2 Dose Adult 06/14/2013, 12/12/2013 Influenza IIV4 high dose 65 and Older 02/19/2021, 02/11/2022, 02/16/2023 Influenza TIV (IM) 03/15/2020, 03/15/2021 Influenza, Unspecified 02/15/2017 Pfizer SARS-CoV-2 Vaccination 07/23/2020, 08/13/2020, 04/21/2021 Pneumococcal Polysaccharide (Pneumovax 23) 05/14/2020 Tdap 11/16/2010 Zoster (Shingrix) 08/24/2021, 11/03/2021 influenza HD-IIV3 (FLUZONE HIGH DOSE) 65 years old or greater - syringe 02/29/2024 influenza IIV3 (FLUZONE) 6 months old or greater - multi-dose vial 02/15/2019 Objective: BP 133/81 (BP Location: Right arm, Patient Position: Sitting, BP Cuff Size: Adult) Pulse 65 Temp 98 F (36.7 C) (Oral) Resp 18 Wt 98.8 kg (217 lb 12.8 oz) SpO2 96% BMI 28.74 kg/m Hearing/Vision Screen No results found. Physical Exam Constitutional: General: He is not in acute distress. Appearance: Normal appearance. He is not ill-appearing, toxic-appearing or diaphoretic. HENT: Head: Normocephalic and atraumatic. Eyes: General: No scleral icterus. Cardiovascular: Rate and Rhythm: Normal rate and regular rhythm. Heart sounds: No murmur heard. No gallop. Pulmonary: Effort: Pulmonary effort is normal. No respiratory distress. Breath sounds: Normal breath sounds. No wheezing or rales. Skin: General: Skin is warm and dry. Coloration: Skin is not jaundiced or pale. Neurological: Mental Status: He is alert. Psychiatric: Mood and Affect: Mood normal. Assessment/Plan: Nancie was seen today for follow-up, gap closure (health maintenance), medicare wellness visit and fall risk screening. Diagnoses and all orders for this visit: Medicare annual wellness visit, subsequent At low risk for fall Mixed hyperlipidemia Hx statin myopathy with atorvastatin, and elevated CK. Taking red yeast rice and fish oil supplements. Check updated lipid panel. If not improving, consider rosuvastatin or pravastatin. - Lipid Panel; Future Gastroesophageal reflux disease, unspecified whether esophagitis present Symptoms well-controlled, now taking pantoprazole 20 mg daily as needed. Continue. - pantoprazole (PROTONIX) 20 MG tablet; Take 1 (one) tablet (20 mg total) by mouth as needed . Primary hypertension BP goal <130/90. Well-controlled on lisinopril 20 mg daily. Continue. - Check renal function annually Return in about 1 year (around 11/14/2025) for Annual Exam. Patient Instructions (the written plan) and additional handouts provided to the patient with their After Visit Summary. My ongoing relationship with Nancie Patel requires continued responsibility and cognitive effort of being the focal point for all services related to chronic condition(s). documented in this encounter [facility] 11-14-2024 Instructions Harvinder Mendoza DO - 11/14/2024 7:38 AM EDT Try Ammonium lactate lotion for legs. STEADI Low Risk Patient Instructions: Your Falls Screening today shows that you are at low risk for falls. To further protect yourself from falls and maintain your independence, we recommend: 1. Read through the brochure, What You Can Do to Prevent Falls (from CDC). 2. Go through the brochure, Check for Safety: A Home Fall Prevention Checklist for Older Adults (from CDC), and make changes as recommended. 3. Join a community falls prevention program: Stepping On, a 7-week evidence based program that teaches balance exercises and fall prevention strategies Desmond Chi for older adults, group exercise that teaches Desmond Chi forms that reduce fall risk (weight shifting, postural alignment and control, and coordinated movements of the arms, legs, head, and trunk) Matter of Balance, an evidence based program designed to reduce the fear of falling and increase activity levels of older adults OR an exercise class for strength and balance. 4. Take your Vitamin D with or without Calcium, as determined by your healthcare provider. 5. Get your vision and hearing checked annually. Falls At Home Each year, thousands of older Americans fall at home. Many of them are seriously injured, and some are disabled. In 2011, nearly 23,000 people over age 65 and 2.4 million were treated in emergency departments because of falls. Falls are often due to hazards that are easy to overlook but easy to fix. This checklist will help you find and fix those hazards in your home. The checklist asks about hazards found in each room of your home. For each hazard, the checklist tells you how to fix the problem. At the end of the checklist, you ll find other tips for preventing falls. FLOORS: Look at the floor in each room. Q: When you walk through a room, do you have to walk around furniture? A. Ask someone to move the furniture so your path is clear Q: Do you have throw rugs on the floor? A. Remove the rugs or use double-sided tape or a non-slip backing so the rugs won t slip. Q: Are there papers, books, towels, shoes, magazines, boxes, blankets, or other objects on the floor? A.night shift supervisor things that are on the floor. Always keep objects off the floor. Q: Do you have to walk over or around wires or cords (like lamp, telephone, or extension cords)? A. Coil or tape cords and wires next to the wall so you can t trip over them. If needed, have an electrician marine put in another outlet. STAIRS AND STEPS: Look at the stairs you use both inside and outside your home. Q: Are there papers, shoes, books, or other objects on the stairs? A. night shift supervisor things on the stairs. Always keep objects off stairs. Q: Are some steps broken or uneven? A. Fix loose or uneven steps. Q: Are you missing a light over the stairway? A. Have an electrician marine put in an overhead light at the top and bottom of the stairs. Q: Do you have only one light switch for your stairs (only at the top or at the bottom of the stairs)? A. Have an electrician marine put in a light switch at the top and bottom of the stairs. You can get light switches that glow. Q: Has the stairway light bulb burned out? A. Have a friend or family member change the light bulb. Q: Is the carpet on the steps loose or torn? A. Make sure the carpet is firmly attached to every step, or remove the carpet and attach non-slip rubber treads to the stairs. Q: Are the handrails loose or broken? Is there a handrail on only one side of the stairs? A. Fix loose handrails or put in new ones. Make sure handrails are on both sides of the stairs and are as long as the stairs. KITCHEN: Look at your kitchen and eating area. Q: Are the things you use often on high shelves? A. Move items in your cabinets. Keep things you use often on the lower shelves (about waist level). Q: Is your step stool unsteady? A. If you must use a step stool, get one with a bar to hold on to. Never use a chair as a step stool. BATHROOMS: Look at all your bathrooms. Q: Is the tub or shower floor slippery? A. Put a non-slip rubber mat or self-stick strips on the floor of the tub or shower. Q: Do you need some support when you get in and out of the tub or up from the toilet? A. Have grab bars put in next to and inside the tub and next to the toilet. BEDROOMS: Look at all your bedrooms. Q: Is the light near the bed hard to reach? A. Place a lamp close to the bed where it s easy to reach. Q: Is the path from your bed to the bathroom dark? A. Put in a night-light so you can see where you re walking. Some night-lights go on by themselves after dark. Other Things You Can Do to Prevent Falls Do exercises that improve your balance and make your legs stronger. Exercise also helps you feel better and more confident. Have your doctor or pharmacist look at all the medicines you take, even iptv-cgt-faxtiew medicines. Some medicines can make you sleepy or dizzy. Have your eyes checked by an eye doctor at least once a year and update your glasses. Get up slowly after you sit or lie down. Wear shoes both inside and outside the house. Avoid going barefoot or wearing slippers. Improve the lighting in your home. Put in brighter light bulbs. Florescent bulbs are bright and cost less to use. It s safest to have uniform lighting in a room. Add lighting to dark areas. Hang lightweight curtains or shades to reduce glare. [place] a contrasting color on the top edge of all steps so you can see the stairs better. For example, use a light color paint on dark wood. To access this brochure online, please visit the CDC website at http://www.cdc.gov/steadi/pdf/c marian_for_safety_brochure-a.pdf Chair Rise Exercise What it does: Strengthens the muscles in your thighs & buttocks. Goal: To do this exercise without using your hands as you become stronger. How to do it: 1. Sit toward the front of a sturdy chair with your knees bent & feet flat on the floor shoulder-width apart 2. Rest your hands lightly on the seat on either side of you, keeping your back & neck straight & and chest slightly forward. 3. Breathe in slowly. Lean forward & feel your weight on the front of your feet. 4. Breathe out and slowly stand up, using your hands as little as possible. 5. Pause for a full breath in & out. 6. Breathe in as you slowly sit down. Do not let yourself collapse back down into the chair. Rather, control your lowering as much as possible. 7. Breathe out. Repeat 10-15 times. If this number is too hard for you when you first start practicing this exercise, begin with fewer and work up to this number. Rest for a minute & then do a final set of 10-15. For detailed instructions, please visit the CDC website at http://www.cdc.gov/steadi/pdf/c hair_rise_exercise-a.pdf Stepping On is an evidence based program proven to reduce falls in older adults. It is a workshop offered once a week for seven weeks. In a small-group setting, you will learn balance exercises and develop specific knowledge and skills to prevent falls. Older adults who should attend are those who: are at risk of falling who have fallen one or more times lives at home are able to walk without the help of another person Local guest experts provide information on exercise, safety, vision, and medications. Classes are offered at [facility]. To find out specifics about a class, please call [phone]. Desmond chi: Moving for Better Balance involves low impact exercise. The 12-week class is offered for three hours per week and is led by a trained medical office assistant instructor. It is intended for people aged 60 and older. Participants learn and perform a program of eight forms that progress from easy to more difficult. The program can accommodate persons with various physical conditions. Health Benefits of Desmond Chi: Moving for Better Balance: Improved social and mental well-being, Improved balance and physical functioning, Improved confidence in conducting daily activities, Reduced risk of falling and sustaining associated injuries, and Maintained independence and improved quality of life. To find a Desmond Chi program in your area or additional resources about fall prevention please contact: [facility] Violence and Injury Prevention Program at [phone] or [email or web address] A Matter of Balance: Managing Concerns about Falls is an evidence based program designed to reduce the fear of falling and increase activity levels of older adults. A trained stick feeder leads 8 two-hour sessions for small groups of older adults. The class is intended for people 60 and older who are at risk of falling have a fear of falling or restrict activities who have fallen in the past are interested in improving flexibility, balance, and strength. Participants will learn to view falls as controllable, set goals to increase activity levels, and reduce fall risks at home. Classes are offered in all [address] [place] [address] in [place]. For more information about specific classes near you, please visit http://aging.[place].gov/steadyu/r esources/matterofbalance.aspx. documented in this encounter [facility] 11-14-2024 Note T11 :This report has been cancelled. [facility] 08-26-2024 History of Presen t illness Narrative [facility] Ollie Grant MILITARY PROFESSIONAL-GYMNASTIC TEACHER Visit Note - 08/26/2024 12:56 PM This note was generated with voice recognition software and may contain errors including spelling, grammar, syntax, and misrecognization of what was dictated. Patient: Nancie Patel, , 68 y.o., male PCP: Harvinder Mendoza [...] >30% 12/22/2019 CT HEART CORONARY ANGIOGRAM 12/22/2019 [facility] OTHER SURGICAL HISTORY 11/14/2019 Colonoscopy FAMILY HX: No pertinent history. SOCIAL HX: reports that he has never smoked. He has never used smokeless tobacco. . ----- CHIEF COMPLAINT: Chief Complaint Patient presents with URI Cough, chest congestion, sore throat x 2 weeks worsening over last 5 days HISTORY OF PRESENT ILLNESS: The history was obtained from patientBrett Dominguez is a 68 y.o. male, who presents [...] OTC medications without much relief; no other losp-smn-osirwnr medications or home remedies for symptom management. [...] Musculoskeletal: Grossly normal; appropriate for age. Integumentary: [place], warm, dry, and intact. No rashes or [...] and answered. ALAN Shepherd Advanced Practice Provider [facility] documented in this encounter [facility] Work Phone: 08-26-2024 Instructions ALAN Shepherd - 08/26/2024 12:00 PM EDT - Start Zpak and Prednisone - take these with food. - Use albuterol inhaler and benzonatate as needed. - Start eiqh-tlt-zhlfcur plain Mucinex (guaifenesin) to help loosen/thin phlegm. Increase fluids, rest, and follow up with your doctor if symptoms persist or worsen. documented in this encounter [facility] Work Phone: 08-22-2024 Evaluation + Plan note Associated Problem(s): Cough Cough for 3 weeks following viral infection. also currently sick with respiratory illness. DDx: Postnasal drip, postviral syndrome, GERD - Begin nightly Flonase or Nasacort - Begin nightly pantoprazole 20 mg with dinner - Monitor symptoms - Follow-up as needed [facility] 08-22-2024 Miscellaneous Notes Associated Problem(s): Cough Cough [...] Follow-up as needed documented in this encounter [facility] 08-22-2024 Evaluation + Plan note Associated Problem(s): Gastroesophageal reflux disease Start daily pantoprazole 20 mg. May take second 20 mg dose if needed. Recommended to take prior to dinner due to symptoms occurring during the night. - Follow-up as needed [facility] 08-22-2024 Instructions Harvinder Mendoza DO - 08/22/2024 2:43 PM EDT You can try Flonase (fluticasone) nasal spray or Nasacort (triamcinolone). documented in this encounter [facility] 08-22-2024 Note Assessment/Plan: Gastroesophageal reflux disease Start [...] symptoms - Follow-up as needed Subjective: Nancie Patel is a 68 y.o. male Chief Complaint [...] the medications. My ongoing relationship with Nancie Patel requires continued responsibility and cognitive effort of being the focal point for all services related to chronic condition(s). Harvinder Mendoza DO AUTHENTICATED BY HARVINDER MENDOZA, ON 08/22/2024 15:31:16 [facility] 08-22-2024 History of Presen t illness Narrative [...] symptoms - Follow-up as needed Subjective: Nancie Patel is a 68 y.o. male Chief Complaint [...] the medications. My ongoing relationship with Nancie Patel requires continued responsibility and cognitive effort of being the focal point for all services related to chronic condition(s). Harvinder Mendoza DO documented in this encounter [facility] 08-12-2024 Evaluation note Diagnosis Onset Date Resolution Acute superficial venous thrombosis of right lower extremity acute August 12, 2024 9:54am Venous insufficiency (chronic) (peripheral) chronic July 9:54am Acute superficial venous thrombosis of right lower extremity acute September 06, 2024 11:15am Venous insufficiency (chronic) (peripheral) chronic August 11:15am Acute superficial venous thrombosis of right lower extremity acute September 28, 2024 1:25pm Stasis dermatitis of both legs acute September 28, 2024 1:25pm Symptomatic varicose veins of both lower extremities acute September 28, 2024 1:25pm Venous insufficiency (chronic) (peripheral) chronic September 28, 2024 1:25pm [facility] Work Phone: 1(945) 787-592102-12-2025 Evaluation note* Diagnosis Onset Date Resolution Status Admit Date Symptomatic varicose veins o f both lower extremities acute June 29, 2024 1:05pm Venous insufficiency (chroni c) (peripheral) chronic June 29 025 1:05pm [facility] Work Phone: 1(426) 982-309402-12-2025 Evaluation note* Diagnosis Onset Date Resolution Status Admit Date Symptomatic varicose veins o f both lower extremities acute June 29, 2024 1:05pm Venous insufficiency (chroni c) (peripheral) chronic June 29 1:05pm Acute superficial venous thrombosis of right lower extremity acute August 12, 2024 9:54am Venous insufficiency (chroni c) (peripheral) chronic August 12, 2024 9:54am [facility] Work Phone: 1([phone]) 712-605102-12-2025 Evaluation note* Diagnosis Onset Date Resolution Status Admit Date Symptomatic varicose veins o f both lower extremities acute June 29, 2024 1:05pm Venous insufficiency (chroni c) (peripheral) chronic June 29 1:05pm Acute superficial venous thrombosis of right lower extremity acute August 12, 2024 9:54am Venous insufficiency (chroni c) (peripheral) chronic August 12, 2024 9:54am Acute superficial venous thrombosis of right lower extremity acute September 06, 2024 11:15am Venous insufficiency (chroni c) (peripheral) chronic September 06, 2024 11:15am [facility] Work Phone: 1(107) 191-960602-12-2025 Evaluation note* Diagnosis Onset Date Resolution Status [...] (peripheral) chronic September 28, 2024 1 :25pm [facility] Work Phone: 1(462) 659-740401-17-2025 Evaluation + Plan note* Assessment & Plan Note - Harvinder Mendoza DO - 06/03/2024 10:16 PM ESTAssociated Problem(s): Screening for AAA (abdominal aortic aneurysm) 68 yo former smoker. Screen for AAA with US, ordered today. [id number] Miscellaneous Notes* Assessment & Plan Note - [...] statin; rosuvastatin or pravastatin. documented in this [id number] Evaluation + Plan note* Assessment & Plan Note - Harvinder Mendoza DO - 06/03/2024 10:14 PM EST Associated Problem(s): Overweight (BMI 25.0-29.9) BMI 28.1. Discussed healthy lifestyle including well-balanced diet, reducing portions and sugar. Begin routine exercise, goal 150 min cardiovascular exercise weekly. - Check CBC, CMP, TSH, A1c - Monitor for improvement [id number] Evaluation + Plan note* Assessment & Plan Note - Harvinder Mendoza DO - 06/03/2024 10:12 PM ESTAssociated Problem(s): Vitamin B12 deficiency Hx of low normal B12. On vitamin B12 supplement 1000 mg daily. - Check updated serum B12, may discontinue supplement if appropriate [id number] Evaluation + Plan note* Assessment & Plan Note - Harvinder Mendoza DO - 06/03/2024 10:10 PM ESTAssociated Problem(s): Hypertension BP goal <130/90. Well-controlled on lisinopril 20 mg daily. Continue. - Check updated CMP, CBC, TSH - Follow up in 6 months [id number] Evaluation + Plan note* Assessment & Plan [...] improving, consider hydrophilic statin; rosuvastatin or pravastatin. [id number] Instructions* Patient Instructions* Harvinder Mendoza DO - 05/30/2024 8:48 AM EST Your exercise goal is 150 minutes weekly (30 min/day, 5 days/week) of cardiovascular exercise. I recommend updating your tetanus booster at your pharmacy. * Attachments The following attachments cannot be sent through Care Everywhere. * Senior Fitness: General Info ([place]se) documented in this [id number] History of Present illness Narrative* Harvinder Mendoza, DO - 05/30/2024 8:00 AM EST Assessment/Plan: [...] AAA with US, ordered today. Subjective: Nancie Patel is a 68 y.o. male Chief Complaint [...] Caffeine: Coffee 2 cups/day Occupation: Retired end 2023 The following portions of the patient's [...] the medications. My ongoing relationship with Nancie Patel requires continued responsibility and cognitive effort of being the focal point for all services related to chronic condition(s). Harvinder Mendoza, 05/30/2024 8:08 AM PHQ-9 Review Little interest [...] PHQ-9 Total Score 0 documented in this [id number] NoteAssessment/Plan: Mixed hyperlipidemia Last lipid panel 03/2024 [...] AAA with US, ordered today. Subjective: Nancie Patel is a 68 y.o. male Chief Complaint [...] the medications. My ongoing relationship with Nancie Patel requires continued responsibility and cognitive effort of being the focal point for all services related to chronic condition(s). Harvinder Mendoza, 05/30/2024 8:08 AM PHQ-9 Review Little interest [...] , or of h (more content not included)...[facility]12-02-2024 Evaluation + Plan note* Assessment & Plan Note - Sana Doyle DO - 04/18/2024 3:33 PM ESTAssociated Problem(s): Hyperlipidemia LDL goal <100 -He clearly has a statin intolerance -We will try Zetia 10 mg daily and we will see him back in approximately 4 months for reevaluation -He is also reminded to watch his diet closely and to refrain from alcohol consumption [facility] Work Phone: 1(486) 707-164312-02-2024 Miscellaneous Notes* Assessment & Plan Note - Sana Doyle DO - 04/18/2024 3:33 PM ESTAssociated Problem(s): Hyperlipidemia LDL goal <100 -He clearly has a statin intolerance -We will try Zetia 10 mg daily and we will see him back in approximately 4 months for reevaluation -He is also reminded to watch his diet closely and to refrain from alcohol consumption documented in this [facility] Work Phone: 1(240) 320-520812-02-2024 History of Present illness Narrative* Sana Doyle, DO - 04/18/2024 3:00 PM EST Subjective Patient ID: Nancie Patel is a 68 y.o. male who presents for Follow-up (6 mo follow, lab results). HPI He is here today for follow-up. He reports feeling relatively well. He will be embarking on longterm after the first of the year and [...] well as exercise regularly. With your upcoming longterm I am hoping that you will carve out time every day for your wellness and fitness. We will see you back in 4 months and just prior to that visit you will go for fasting lab work Sana S Lyndora, DO documented [facility] Work Phone: [phone]) 980-242712-02-2024 Instructions* Patient Instructions* Sana Doyle DO - 04/18/2024 3:00 PM EST As we discussed we are trying a new medication known as Zetia and please take this once a day as directed until our next visit. If for some reason you feel like you are not tolerating it please give us a call. Please remember to eat healthy as well as exercise regularly. With your upcoming longterm I am hoping that you will carve out time every day for your wellness and fitness. We will see you back in 4 months and just prior to that visit you will go for fasting lab work [facility] Work Phone: [phone]) 919-409307-15-2024 Evaluation + Plan note* Assessment & Plan Note - Sana Doyle DO - 11/30/2023 1:30 PM EDTAssociated Problem(s): Elevated CPK -We decided to repeat his CPK in 8 weeks from now and I will be calling him. [facility] Work Phone: 1([phone]) 984-750607-15-2024 Evaluation + Plan note* Assessment & Plan Note - aSna Doyle DO - 11/30/2023 1:30 PM EDTAssociated Problem(s): Alcohol consumption heavy -He will refrain from any alcohol use for the next 8 weeks and he will call if he is having problems doing so -We also discussed the possibility of treating depression or anxiety and we also discussed seeing acounselor which I think would be one of the best options [facility] Work Phone: [phone]) 998-582107-15-2024 Miscellaneous Notes* Assessment & Plan Note - Sana Doyle DO - 11/30/2023 1:30 PM EDTAssociated Problem(s): Elevated CPK -We decided to repeat his CPK in 8 weeks from now and I will be calling him. * Assessment & Plan Note - Sana Doyle DO - 11/30/2023 1:30 PM EDT Associated [...] best options * Addendum Note - Sana Doyle DO - 11/30/2023 1:00 PM EDTAddended by: SANA DOYLE on: 11/30/2023 01:33 PM Modules accepted: Orders documented in this [facility] Work Phone: [phone]) 977-870207-15-2024 History of Present illness Narrative* Sana Doyle DO - 11/30/2023 1:00 PM EDT Subjective Patient ID: Nancie Patel is a 68 y.o. male who presents [...] doing so. He states he is facing longterm in about 6 monthsfrom now and he is just feeling a little bit lost about what is going to do after longterm. We talked about looking into different ways [...] Relevant Orders Phosphorus Vitamin B12 CK Sana Doyle DO [facility] Work Phone: [phone]) 470-738607-15-2024 Instructions* Patient Instructions* Sana Doyle DO - 11/30/2023 1:00 PM EDT As [...] looking future for you. documented in this [facility]Un[facility] Work Phone: [phone] Note* Addendum Note - Sana Doyle DO - 11/30/2023 1:00 PM EDTAddended by: SANA DOYLE on: 11/30/2023 01:33 PM Modules accepted: Orders [facility] Work Phone: [phone]) 427-195106-17-2024 Evaluation + Plan note* Assessment & Plan Note - Aleshia Elaine APRN-GYMNASTIC TEACHER - 11/02/2023 3:57 PM EDTAssociated Problem(s): Diffuse [...] control. I did recommend pain management or operation specialist evaluation for possibility of cortisone injection if symptoms do not improve with PT and topical diclofenac gel. Patient wishes to discuss this with his PCP as well. I will be to follow-up here after PT, sooner for anychanges or concerns. This note was generated using [employer] software. It may contain errors in wording, punctuation or spelling. [facility] Work Phone: [phone]) 919-593206-17-2024 Miscellaneous Notes* Assessment & Plan Note - [...] control. I did recommend pain management or operation specialist evaluation for possibility of cortisone injection if symptoms do not improve with PT and topical diclofenac gel. Patient wishes to discuss this with his PCP as well. I will be to follow-up here after PT, sooner for anychanges or concerns. This note was generated using [employer] software. It may contain errors in wording, punctuation or spelling. documented in this [facility] Work Phone: 1(221) 494-703206-17-2024 History of Present illness Narrative* ALAN Chi - 11/02/2023 8:45 AM EDT Subjective Patient ID: Nancie Patel is a 68 y.o. male. Chief Complaint: [...] symptoms are aggravated with use of a Alutiiq which he does approximately twice a month. [...] Signs/Symptoms:pain 6 months. COMPARISON: None. ACCESSION NUMBER(S): [id number] ORDERING CLINICIAN: SANA DOYLE FINDINGS: Five views right shoulder: There is no fracture or dislocation. There is degenerative change of the right acromioclavicular joint with mild spurring superiorly and inferiorly. Impression: Mild right acromioclavicular joint osteoarthritis. MACRO: None Signed by: Yenny Perez 10/20/2023 8:40 AM Dictation workstation: [id number] XR shoulder left 2+ views Narrative: Interpreted By: Yenny Perez, STUDY: XR SHOULDER LEFT 2+ VIEWS; ; 10/19/2023 8:48 am INDICATION: Signs/Symptoms:pain. COMPARISON: None. ACCESSION NUMBER(S): [id number] ORDERING CLINICIAN: SANA DOYLE FINDINGS: Five views left shoulder: There is no fracture or dislocation. There is a degenerative change of the left acromioclavicular joint with mild spurring superiorly. Impression: Mild left acromioclavicular joint osteoarthritis. MACRO: None Signed by: Yenny Perez 10/20/2023 8:40 AM Dictation workstation: [id number] XR cervical spine 2-3 views Narrative: Interpreted By: Yenny Perez, STUDY: XR CERVICAL SPINE 2-3 VIEWS; 10/19/2023 8:48 am 3 views. INDICATION: Signs/Symptoms:neck pain and bilateral shoulder pain. COMPARISON: None. ACCESSION NUMBER(S): [id number] ORDERING CLINICIAN: SANA DOYLE FINDINGS: There is no fracture or prevertebral [...] Yenny Perez 10/20/2023 8:39 AM Dictation workstation: [id number] Assessment/Plan Encounter Diagnoses: Problem List Items Addressed [...] control. I did recommend pain management or operation specialist evaluation for possibility of cortisone injection if symptoms do not improve with PT and topical diclofenac gel. Patient wishes to discuss this with his PCP as well. I will be to follow-up here after PT, sooner for anychanges or concerns. This note was generated using [employer] software. It may contain errors in wording, punctuation or spelling. documented in this [facility]Un[facility] Work Phone: 1([phone]) 359-288206-03-2024 Evaluation + Plan note* Assessment & Plan Note - Sana Doyle DO - 10/19/2023 7:23 AM EDTAssociated Problem(s): Polyarthropathy -He went off of his atorvastatin for a little bit over a month and he assigns only a 5% improvementin his symptoms -I do want to recheck a CPK level as the initial 1 was elevated at 564 -I will be calling him with results and instructions on medication [facility] Work Phone: 1([phone]) 391-627606-03-2024 Evaluation + Plan note* Assessment & Plan Note - Sana Doyle DO - 10/19/2023 7:23 AM EDTAssociated Problem(s): [...] negative -I am referring him to orthopedics [facility] Work Phone: [phone] Miscellaneous Notes* Assessment & Plan Note - Sana Doyle DO - 10/19/2023 7:23 AM EDTAssociated Problem(s): [...] * Assessment & Plan Note - Sana Doyle DO - 10/19/2023 7:23 AM EDT Associated [...] referring him to orthopedics documented in this [facility]Ge[facility] Work Phone: [phone] 945-201306-03-2024 History of Present illness Narrative* Sana Doyle DO - 10/19/2023 7:00 AM EDT Subjective Patient ID: Nancie Patel is a 68 y.o. male who presents [...] he is lying in bed rolling from [id number] he cannot get comfortable. 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 [...] 2-3 views Referral to Orthopaedic Surgery Sana Doyle DO documented in this [facility] Work Phone: [phone] 800-801606-03-2024 Instructions* Patient Instructions* Sana Doyle DO - 10/19/2023 7:00 AM EDT As [...] back as previously planned documented in this [facility] Work Phone: [phone]) 850-632004-29-2024 Evaluation + Plan note* Assessment & Plan Note - Sana Doyle DO - 09/14/2023 7:18 AM EDTAssociated Problem(s): Gluten intolerance -He has agreed to go on a strict gluten-free diet and we will see what happens to his symptoms [facility] Work Phone: [phone]) 667-921104-29-2024 Evaluation + Plan note* Assessment & Plan Note - Sana Doyle DO - 09/14/2023 7:18 AM EDTAssociated Problem(s): [...] him with results once they are known [facility] Work Phone: [phone] Miscellaneous Notes* Assessment & Plan Note - Sana Doyle DO - 09/14/2023 7:18 AM EDTAssociated Problem(s): Gluten intolerance -He has agreed to go on a strict gluten-free diet and we will see what happens to his symptoms * Assessment & Plan Note - Sana Doyle DO - 09/14/2023 7:18 AM EDT Associated [...] * Assessment & Plan Note - Sana Doyle DO - 09/14/2023 7:17 AM EDT Associated Problem(s): Other fatigue -I will be checking a CBC documented in this [facility] Work Phone: [phone]) 351-347104-29-2024 Evaluation + Plan note* Assessment & Plan Note - Sana Doyle DO - 09/14/2023 7:17 AM EDTAssociated Problem(s): Other fatigue -I will be checking a CBC [facility] Work Phone: [phone]) 891-504704-29-2024 History of Present illness Narrative* Sana Doyle DO - 09/14/2023 7:00 AM EDT Subjective Patient ID: Nancie Patel is a 68 y.o. male who presents [...] see what happens to his symptoms Sana Doyle DO documented in this encounterUn[facility] Work Phone: [phone] 446-757804-29-2024 Instructions* Patient Instructions* Sana Doyle DO - 09/14/2023 7:00 AM EDT As we discussed I will have you get lab work drawn today before leaving and once the results are known I will try to contact you via Orad with the results. If you do not look at the message otuuyr11 hours we will call you instead Please [...] opposed to getting better documented in this encounterUn[facility] Work Phone: [phone] 915-484404-01-2024 Evaluation + Plan note* Assessment & Plan Note - Sana Doyle DO - 08/17/2023 11:56 AM EDTAssociated Problem(s): Medicare annual wellness visit, subsequent -We discussed fall prevention and the importance of providing a copy of his advance directives [facility] Work Phone: [phone] 231-401404-01-2024 Evaluation + Plan note* Assessment & Plan Note - Sana Doyle DO - 08/17/2023 11:56 AM EDTAssociated Problem(s): HTN (hypertension) -Currently very well-controlled and we will continue to monitor [facility] Work Phone: [phone] Evaluation + Plan note* Assessment & Plan Note - Sana Doyle DO - 08/17/2023 11:56 AM EDTAssociated Problem(s): Hyperlipidemia LDL goal <100 -He will continue with atorvastatin 40 mg daily -He decided to stop taking fish oil and we will see what his cholesterol looks like at his next follow-up visit [facility] Work Phone: [phone]) 771-337404-01-2024 Miscellaneous Notes* Assessment & Plan Note - Sana Doyle DO - 08/17/2023 11:56 AM EDTAssociated Problem(s): Medicare annual wellness visit, subsequent -We discussed fall prevention and the importance of providing a copy of his advance directives * Assessment & Plan Note - Sana Doyle DO - 08/17/2023 11:56 AM EDT Associated Problem(s): HTN (hypertension) -Currently very well-controlled and we will continue to monitor * Assessment & Plan Note - Sana Doyle DO - 08/17/2023 11:56 AM EDT Associated Problem(s): Hyperlipidemia LDL goal <100 -He will continue with atorvastatin 40 mg daily -He decided to stop taking fish oil and we will see what his cholesterol looks like at his next follow-up visit [facility]: [phone] 213-861804-01-2024 History of Present illness Narrative* Sana Doyle DO - 08/17/2023 11:20 AM EDT Subjective Reason for Visit: Nancie Patel is an 67 y.o. male here for [...] provide a copy of his power of county attorney for healthcare and living will. We also [...] months for reevaluation. Patient Care Team: Sana Doyle DO as PCP - General Sana Doyle DO as PCP - MSSP ACO Attributed [...] of his advance directives documented in this encounterUn[facility] Work Phone: [phone]) 347-174404-01-2024 Instructions* Patient Instructions* Sana Doyle DO - 08/17/2023 11:20 AM EDT As we discussed I think overall your checkup is very good today Please try to remember to get 30 minutes of aerobic activity 5 days a week Please also try to provide a copy of your advance directives which would include the power of county attorney for healthcare and living will We would like to see you back in approximately 6 months and just prior to that visit please remember to get fasting lab work documented in this encounterUn[facility] Work Phone: [phone] 214-258007-03-2023 Evaluation + Plan note* Assessment & Plan Note - Sana Doyle DO - 11/17/2022 8:25 AM EDTAssociated Problem(s): Hyperlipidemia LDL goal <100 -His cholesterol profile is excellent and we will check this annually per Medicare protocol -We are providing a refill on atorvastatin 40 mg daily [facility] Work Phone: [phone] 146-645607-03-2023 Evaluation + Plan note* Assessment & Plan Note - Sana Doyle DO - 11/17/2022 8:25 AM EDTAssociated Problem(s): [...] with results -We also discussed seeing a spool maker if he would like for a second opinion [facility] Work Phone: [phone] 612-557407-03-2023 Miscellaneous Notes* Assessment & Plan Note - Sana Doyle DO - 11/17/2022 8:25 AM EDTAssociated Problem(s): Hyperlipidemia LDL goal <100 -His cholesterol profile is excellent and we will check this annually per Medicare protocol -We are providing a refill on atorvastatin 40 mg daily * Assessment & Plan Note - Sana Doyle DO - 11/17/2022 8:25 AM EDT Associated [...] with results -We also discussed seeing a spool maker if he would like for a second opinion * Assessment & Plan Note - Sana Doyle DO - 11/17/2022 8:24 AM EDT Associated [...] * Assessment & Plan Note - Sana Doyle DO - 11/17/2022 8:24 AM EDT Associated Problem(s): HTN (hypertension) -Today's blood pressure was excellent -He will continue taking lisinopril 20 mg daily -He will call if he discovers that his blood pressure was lower or causing any significant symptomsas we would reduce the dose of his lisinopril to 10 mg daily documented in this [facility] Work Phone: [phone] 585-998607-03-2023 Evaluation + Plan note* Assessment & Plan Note - Sana Doyle DO - 11/17/2022 8:24 AM EDTAssociated Problem(s): Hyperglycemia -He still has a mildly elevated fasting glucose level but his overall glycemic control has improveddramatically as evidenced by reduced hemoglobin A1c from 5.6 down to 5.3 -We will continue to check blood glucose levels periodically -He is encouraged to keep up the great work with his diet and exercise routine [facility] Work Phone: [phone] Evaluation + Plan note* Assessment & Plan Note - Sana Doyle DO - 11/17/2022 8:24 AM EDTAssociated Problem(s): HTN (hypertension) -Today's blood pressure was excellent -He will continue taking lisinopril 20 mg daily -He will call if he discovers that his blood pressure was lower or causing any significant symptomsas we would reduce the dose of his lisinopril to 10 mg daily [facility] Work Phone: [phone] 504-185607-03-2023 History of Present illness Narrative* Sana Doyle DO - 11/17/2022 8:00 AM EDT Subjective Patient ID: Nancie Patel is a 67 y.o. male who presents [...] with results -We also discussed seeing a spool maker if he would like for a second opinion Relevant Orders TSH Sana Doyle DO documented in this encounterUn[facility] Work Phone: [phone] Instructions* Patient Instructions* Sana Doyle DO - 11/17/2022 8:00 AM EDT As we discussed we will have you get a thyroid blood test performed today before leaving and we will contact you with results If you would like to be referred to a spool maker for your hair loss please let us know Please continue the wonderful work with your diet and exercise regimen If everything goes according to plan we will see you back in approximately 6 months and please remember to get fasting lab work done just prior to that visit documented in this encounterUn[facility] Work Phone: [phone] 221-787906-23-2023 History of Present illness Narrativepatient is here [...] or MRI in the past. ED is mild.[id number] Work Phone: Evaluation note* Diagnosis Alopecia areata- Primary Hyperglycemia Other abnormal glucose Secondary hypertension Other secondary hypertension, unspecified Hyperlipidemia LDL goal <100 Other and unspecified hyperlipidemia documented in this encounter [facility] Work Phone: Evaluation note* Diagnosis Medicare annual wellness visit, subsequent- Primary Hyperlipidemia LDL goal <100 Other and unspecified hyperlipidemia Secondary hypertension Other secondary hypertension, unspecified Hyperglycemia Other abnormal glucose documented in this encounter [facility] Work Phone: Evaluation note* Diagnosis Polyarthropathy- Primary Unspecified polyarthropathy or polyarthritis, site unspecified Other fatigue Gastroesophageal reflux disease without esophagitis Esophageal reflux Gluten intolerance Celiac disease documented in this encounter [facility] Work Phone: Evaluation note* Diagnosis Polyarthropathy- Primary Unspecified polyarthropathy or polyarthritis, site unspecified Neck pain, chronic Chronic pain of both shoulders documented in this encounter [facility] Work Phone: Evaluation note* Diagnosis Chronic pain of both shoulders documented in this encounter [facility] Work Phone: Evaluation note* Diagnosis Neck pain, chronic Chronic pain of both shoulders documented in this encounter [facility] Work Phone: Evaluation note* Diagnosis Chronic pain of both shoulders- Primary Cervical spine arthritis Cervical spondylosis without myelopathy 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 documented in this encounter [facility] Work Phone: Evaluation note* Diagnosis Alopecia [...] and unspecified hyperlipidemia documented in this encounter [facility] Work Phone: Evaluation note* Diagnosis Alopecia [...] serum enzyme levels documented in this encounter [facility] Work Phone: Evaluation note* Diagnosis Primary [...] unspecified cardiovascular conditions [facility] Primary hypertension- Primary Unspecified essential [...] unspecified organism- Primary documented in this encounter [facility] Work Phone: Evaluation note* Diagnosis Primary [...] unspecified whether esophagitis present- Primary Subacute cough Medicare annual wellness visit, subsequent- Primary At low risk for fall Mixed hyperlipidemia Gastroesophageal reflux disease, unspecified whether esophagitis present Primary hypertension Unspecified essential hypertension [facility] Diagnosis Primary hypertension- Primary Unspecified essential [...] unspecified whether esophagitis present- Primary Subacute cough Medicare annual wellness visit, subsequent- Primary At low risk for fall Mixed hyperlipidemia Gastroesophageal reflux disease, unspecified whether esophagitis present Primary hypertension Unspecified essential hypertension Mixed hyperlipidemia- Primary documented in this encounter [facility] for referral (narrative)* Consultation (Routine) - Authorized Specialty Diagnoses / Procedures Referred By Neel caceres Referred To Contact Primary Care Procedures Follow Up In Primary Care Sana Doyle DO [address] [facility] [place] [address] Referral ID Status Reason Start Date Expiration Date V isits Requested Visits Authorized [id number] Authorized 11/17/2022 05/16/2023 1 1 [facility] Work Phone: Rewxub for referral (narrative)* Consultation (Routine) - Authorized Specialty Diagnoses / Procedures Referred By Contac t Referred To Contact Primary Care Procedures Follow Up In Primary Care Sana Doyle DO [address] [place] [address] Referral ID Status Reason Start Date Expiration Date V isits Requested Visits Authorized [id number] Authorized 08/17/2023 08/16/2024 1 1 [facility] Work Phone: Reqiss for referral (narrative)* Consultation (Routine) - Authorized Specialty Diagnoses / Procedures Referred By Contac t Referred To Contact Primary Care Procedures Follow Up In Primary Care Sana Doyle DO [address] [place] [address] Referral ID Status Reason Start Date Expiration Date V isits Requested Visits Authorized [id number] Authorized 09/14/2023 09/13/2024 1 1 [facility] Work Phone: reason for referral (narrative)* Consultation (Routine) - Authorized Specialty Diagnoses / Procedures Referred By Contac t Referred To Contact Orthopaedic Surgery / Orthopedic Surgery Diagnoses Chronic pain of both shoulders Sana Doyle DO [address] [place] [address] Referral ID Status Reason Start Date Expiration Date Visits Requested Visits Authorized [id number] Authorized Specialty Services Required 10/19/2023 10/18/2024 1 1 * Imaging (Routine) - Authorized Specialty Diagnoses / Procedures Referred By Contac t Referred To Contact Radiology Diagnoses Neck pain, chronic Chronic pain of both shoulders Procedures XR cervical spine 2-3 views Sana Doyle DO [address] [facility] [place] [address] Referral ID Status Reason Start Date Expiration Date Visits Requested Visits Authorized [id number] Authorized Perform Procedure 10/19/2023 10/18/2024 1 1 * Imaging (Routine) - Authorized Specialty Diagnoses / Procedures Referred By Contac t Referred To Contact Radiology Diagnoses Chronic pain of both shoulders Procedures XR shoulder left 2+ views Sana Doyle DO [address] [place] [address] Referral ID Status Reason Start Date Expiration Date Visits Requested Visits Authorized [id number] Authorized Perform Procedure 10/19/2023 10/18/2024 1 1 * Imaging (Routine) - Authorized Specialty Diagnoses / Procedures Referred By Contac t Referred To Contact Radiology Diagnoses Chronic pain of both shoulders Procedures XR shoulder right 2+ views Sana Doyle DO [address] [facility] [place] [address] Referral ID Status Reason Start Date Expiration Date Visits Requested Visits Authorized [id number] Authorized Perform Procedure 10/19/2023 10/18/2024 1 1 [facility] Work Phone: Reason for referral (narrative)* Consultation (Routine) - Pending Review Specialty Diagnoses / Procedures Referred By Contac t Referred To Contact Physical Therapy Diagnoses Chronic pain of both shoulders Cervical spine arthritis AC joint arthropathy Aleshia Elaine, MILITARY PROFESSIONAL-GYMNASTIC TEACHER [address] [facility], [facility] [address] [place] [address] [id number] [address] [place] [address] Referral ID Status Reason Start Date Expiration Date Visits Requested Visits Authorized [id number] Pending Review Specialty Services Required 11/02/2023 11/01/2024 1 1 * Consultation (Routine) - Authorized Specialty Diagnoses / Procedures Referred By Neel caceres Referred To Contact Orthopaedic Surgery / Orthopedic Surgery Diagnoses Cervical spine arthritis AC joint arthropathy Procedures Follow Up In Orthopaedic Surgery Aleshia Elaine, MILITARY PROFESSIONAL-GYMNASTIC TEACHER [address] 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 No Complaints. This note was generated by using [employer] software. It may contain errors in wording, [...] states he also was advised by his academic guidance specialist to take a baby aspirin once a [...] review. This note was generated by using [employer] software. It may contain errors in wording, punctuate, or spelling. This note was generated by using[employer] software. It may contain errors in wording, [...] we have discussed the notion of a pr ediabetic state. He understands that exercise and weight [...] Procedures XR shoulder left 2+ views Sana Doyle, DO [address] [facility] [place] [address] Referral ID Status Reason Start Date Expiration Date Visits Requested Visits Authorized [id number] Authorized Perform Procedure 10/19/2023 10/18/2024 1 1 Specialty Diagnoses / Procedures Referred By Neel caceres Referred To Contact Radiology Diagnoses Neck pain, chronic Chronic pain of both shoulders Procedures XR cervical spine 2-3 views Sana Doyle, [address] [place] [address] Referral ID Status Reason Start Date Expiration Date Visits Requested Visits Authorized [id number] Authorized Perform Procedure 10/19/2023 10/18/2024 1 1 Specialty Diagnoses / Procedures Referred By Neel caceres Referred To Contact Radiology Diagnoses Chronic pain of both shoulders Procedures XR shoulder right 2+ views Sana Doyle, DO [address] [place] [address] Referral ID Status Reason Start Date Expiration Date Visits Requested Visits Authorized [id number] Authorized Perform Procedure 10/19/2023 10/18/2024 1 1 [...] 9:5 4am Other specified soft tissue disorders [facility] 2024 10:31am Reason for Visit Admit Date [...] 9:5 4am Other specified soft tissue disorders [facility] 2024 10:31am Pain in R Groin September [...] (chronic) (peripher al) September 28, 2024 1:25pm Chief Complaint Admit Date VARICOSE VEINS July 25, 2024 8:4 1am Lump on knee August 12, 2024 9:5 4am Other specified soft tissue disorders [facility] 2024 10:31am Pain in R Groin September 06, 2024 11: 15am RT LEG PAIN September 28, 2024 12:51 pm 3 M FU September 28, 2024 1:25p m RT LEG PAIN November 09, 2024 9:45 am Reason for Visit Admit Date Acute superficial venous thrombosis of r ight lower extremity August 12, 2024 9:54am Venous insufficiency (chronic) (peripher al) August 12, 2024 9:54am Acute superficial venous thrombosis of r ight lower extremity September 06, 2024 11:15am Venous insufficiency (chronic) (peripher al) September 06, 2024 11:15am Acute superficial venous thrombosis of r ight lower extremity September 28, 2024 1:25pm Stasis [...] section and content) DATE CREATED AUTHOR 11/10/2017 [facility] DATE CREATED AUTHOR AUTHOR'S ORGANIZ ATION 11/10/2022 [employer] DATE CREATED AUTHOR AUTHOR'S ORGANIZ ATION 11/11/2022 [facility] [place] DATE CREATED AUTHOR AUTHOR'S ORGANIZ ATION 11/17/2022 [facility] DATE CREATED AUTHOR AUTHOR'S ORGANIZ ATION 04/16/2024 [facility] DATE CREATED AUTHOR AUTHOR'S ORGANIZ ATION 04/20/2024 [facility] DATE CREATED AUTHOR AUTHOR'S ORGANIZ ATION 06/10/2024 [facility] DATE CREATED AUTHOR AUTHOR'S ORGANIZ ATION 08/28/2024 [facility] DATE CREATED AUTHOR AUTHOR'S ORGANIZ ATION 11/14/2024 [facility] DATE CREATED AUTHOR AUTHOR'S ORGANIZ ATION 11/20/2024 [facility] DATE CREATED AUTHOR AUTHOR'S ORGANIZ ATION 12/26/2024 [facility] Reason for Visit (unrecogniz ed section and content) Reason Comments Follow-up 6 MO FUV Reason Comments Follow-up Specialty Diagnoses / Procedures Referred By Contac t Referred To Contact Primary Care Procedures Follow Up In Primary Care Sana Doyle DO [address] [facility] [place] [place] [address] Referral ID Status Reason Start Date Expiration Date V isits Requested Visits Authorized [id number] Authorized 09/14/2023 09/13/2024 1 1 Specialty Diagnoses / Procedures Referred By Contac t Referred To Contact Radiology Diagnoses Chronic pain of both shoulders Procedures XR shoulder left 2+ views Sana Doyle DO [address] [facility] [place] [address] Referral ID Status Reason Start Date Expiration Date Visits Requested Visits Authorized [id number] Authorized Perform Procedure 10/19/2023 10/18/2024 1 1 Specialty Diagnoses / Procedures Referred By Contac t Referred To Contact Radiology Diagnoses Neck pain, chronic Chronic pain of both shoulders Procedures XR cervical spine 2-3 views Sana Doyle DO [address] [facility] [place] [place] [address] Referral ID Status Reason Start Date Expiration Date Visits Requested Visits Authorized [id number] Authorized Perform Procedure 10/19/2023 10/18/2024 1 1 Specialty Diagnoses / Procedures Referred By Contac t Referred To Contact Radiology Diagnoses Chronic pain of both shoulders Procedures XR shoulder right 2+ views Sana Doyle DO [address] [facility] [place] [place] [address] Referral ID Status Reason Start Date Expiration Date Visits Requested Visits Authorized [id number] Authorized Perform Procedure 10/19/2023 10/18/2024 1 1 [...] Diagnoses Chronic pain of both shoulders Sana Doyle DO [address] [place] [address] Referral ID Status Reason Start Date Expiration Date Visits Requested Visits Authorized [id number] Authorized Specialty Services Required 10/19/2023 10/18/2024 1 1 Reason Comments Follow-up 6 mo follow, lab res ults Specialty Diagnoses / Procedures Referred By Neel caceres Referred To Contact Primary Care Procedures Follow Up In Primary Care Sana Doyle DO Phone: tel: fax: Referral ID Status Reason Start Date Expiration Date V isits Requested Visits Authorized [id number] Authorized 08/17/2023 08/16/2024 1 1 Reason Comments 1 month follow up Review labs Reason Comments Establish Care Wants Blood work don e Reason Comments Cough Congestion Reason Comments URI Cough, chest congest ion, sore throat x 2 weeks worsening over last 5 days Reason Onset Date Comments Follow-up 6 months Gap Closure (Health Maintenance) Medicare Wellness Visit- schedule after this apptHepatitis C Screening Never doneRespiratory Syncytial Virus Immunization: Risk, 60-74 Risk, or 75+(1 - Risk 60-74 years 1-dose series) Never done Medicare Wellness Visit Fall Risk Screening 11/14/2024 Care Teams (unrecognized sec tion and content) Compressed Yeast Supervisor Relationship Specialty Start Date End Date Sana Doyle DO [address] [place] [id number] PCP - General 07/19/19 Sana oDyle, [address] [facility] Office [place] [id number] PCP - MSSP ACO Attributed Provider 05/18/21 Compressed Yeast Supervisor Relationship Specialty Start Date End Date Sana Doyle DO [address] [place] [address] [place] [address] PCP - General 07/19/19 [facility] [place] [id number] PCP - MSSP ACO Attributed Provider 05/18/21 Compressed Yeast Supervisor Relationship Specialty Start Date End Date Sana Doyle DO [address] [place] [address] [place] [address] PCP - General 07/19/19 Sana Doyle DO [address] [place] [address] [place] [address] PCP - MSSP ACO Attributed Provider 05/18/21 Compressed Yeast Supervisor Relationship Specialty Start Date End Date Sana Doyle DO [address] [place] [address] Medical Office [place] [id number] PCP - General 07/19/19 Sana Doyle DO [address] [place] [address] [facility] [place] [id number] PCP - MSSP ACO Attributed Provider 05/18/21 Compressed Yeast Supervisor Relationship Specialty Start Date End Date Sana Doyle DO [address] [facility] [place] [id number] PCP - General 07/19/19 Sana Doyle, [address] [facility] [place] [place] [address] PCP - MSSP ACO Attributed Provider 05/18/21 Compressed Yeast Supervisor Relationship Specialty Start Date End Date Sana Doyle DO [address] [place] [address] Office [place] [id number] PCP - General 07/19/19 Sana Doyle DO [address] [place] [address] Office [place] [id number] PCP - MSSP ACO Attributed Provider 05/18/21 Compressed Yeast Supervisor Relationship Specialty Start Date End Date Sana Doyle DO [address] [place] [address] Office [place] [id number] PCP - General 07/19/19 Sana Doyle DO [address] [place] [address] Office [place] [id number] PCP - MSSP ACO Attributed Provider 05/18/21 Compressed Yeast Supervisor Relationship Specialty Start Date End Date Sana Doyle DO [address] [address] PCP - General 07/19/19 Sana Doyle DO [address] [address] PCP - MSSP ACO Attributed Provider 05/18/21 Compressed Yeast Supervisor Relationship Specialty Start Date End Date Sana Doyle EdgarDO [address] [place] [address] PCP - General 07/19/19 Sana Doyle EdgarDO [address] [place] [address] PCP - MSSP ACO Attributed Provider 05/18/21 Compressed Yeast Supervisor Relationship Specialty Start Date End Date Harvinder Mendoza DO [facility] [address] [address] PCP - General Family Medicine 05/30/24 Team [...] Provider Active S tart: August 12, 2024 Compressed Yeast Supervisor Relationship Specialty Start Date End Date Harvinder Mendoza DO [facility] [address] [address] PCP - General Family Medicine 05/30/24 Compressed Yeast Supervisor Relationship Specialty Start Date End Date Royal Sana EdgarDO [address] [address] PCP - MSSP ACO Attributed Provider 05/18/21 Harvinder Mendoza DO [facility] [address] [address] PCP - General Family Medicine 08/26/24 Team [...] Provider Active S tart: September 28, 2024 Team Status: Active Member Role/Relationship Status Dates Dr. Harvinder Mendoza DO Primary Care Provider Active Team Status: Inactive Member Role/Relationship Status Dates Dr. Harvinder Mendoza DO Primary Care Provider Active Start: July 25, 2024 End: July 25, 2024 SAMEER Burnett Attending Provider Active Star t: July 25, 2024 End: July 25, 2024 SAMEER Burnett Referring Provider Active Star t: July 25, 2024 End: July 25, 2024 Team Status: Active Member Role/Relationship Status Dates Dr. Harvinder Mendoza DO Primary Care Provider Active Start: July 25, 2024 Dr. Jose Alejandro Soto MD Attending Provider Active S tart: July 25, 2024 SAMEER Burnett Referring Provider Active Star t: July 25, 2024 Team Status: Inactive Member Role/Relationship Status Dates Dr. Harvinder Mendoza DO Primary Care Provider Active Start: August 12, 2024 End: August 12, 2024 Dr. Harvinder Mendoza DO Referring Provider Active S tart: August 12, 2024 End: August 12, 2024 SAMEER Burnett Attending Provider Active Star t: August 12, 2024 End: August 12, 2024 Team Status: Inactive Member Role/Relationship Status Dates Dr. Harvinder Mendoza DO Primary Care Provider Active Start: August 12, 2024 End: August 12, 2024 SAMEER Burnett Attending Provider Active Star t: August 12, 2024 End: August 12, 2024 SAMEER Burnett Referring Provider Active Star t: August 12, 2024 End: August 12, 2024 Team Status: Active Member Role/Relationship Status Dates Dr. Harvinder Mendoza DO Primary Care Provider Active Start: August 12, 2024 Dr. Jose Alejandro Soto MD Attending Provider Active S tart: August 12, 2024 SAMEER Burnett Referring Provider Active Star t: August 12, 2024 Team Status: Inactive Member Role/Relationship Status Dates Dr. Harvinder Mendoza DO Primary Care Provider Active Start: September 06, 2024 End: September 06, 2024 Dr. Harvinder Mendoza DO Referring Provider Active S tart: September 06, 2024 End: September 06, 2024 SAMEER Burnett Attending Provider Active Star t: September 06, 2024 End: September 06, 2024 Team Status: Inactive Member Role/Relationship Status Dates Dr. Harvinder Mendoza DO Primary Care Provider Active Start: September 28, 2024 End: September 28, 2024 SAMEER Burnett Attending Provider Active Star t: September 28, 2024 End: September 28, 2024 SAMEER Burnett Referring Provider Active Star t: September 28, 2024 End: September 28, 2024 Team Status: Active Member Role/Relationship Status Dates Dr. Harvinder Mendoza DO Primary Care Provider Active Start: September 28, 2024 Dr. Jose Alejandro Soto MD Attending Provider Active S tart: September 28, 2024 SAMEER Burnett Referring Provider Active Star t: September 28, 2024 Team Status: Inactive Member Role/Relationship Status Dates Dr. Harvinder Mendoza DO Primary Care Provider Active Start: September 28, 2024 End: September 28, 2024 Dr. Harvinder Mendoza DO Referring Provider Active S tart: September 28, 2024 End: September 28, 2024 SAMEER Burnett Attending Provider Active Star t: September 28, 2024 End: September 28, 2024 Team Status: Inactive Member Role/Relationship Status Dates Dr. Harvinder Mendoza DO Primary Care Provider Active Start: November 09, 2024 End: November 09, 2024 SAMEER Burnett Attending Provider Active Star t: November 09, 2024 End: November 09, 2024 SAMEER Burnett Referring Provider Active Star t: November 09, 2024 End: November 09, 2024 Team Status: Active Member Role/Relationship Status Dates Dr. Harvinder Mendoza DO Primary Care Provider Active Start: November 09, 2024 Dr. Jose Alejandro Soto MD Attending Provider Active S tart: November 09, 2024 Compressed Yeast Supervisor Relationship Specialty Start Date End Date Harvinder Mendoza DO [facility] [place] [address] PCP - General Family Medicine 05/30/24 Jaylin Johnson MD [address] [place] [address] Consulting Physician Dermatology 11/14/24 Lizbeth Guevara PA-C [facility] [place] [address] Vascular Surgery 11/14/24 Compressed Yeast Supervisor Relationship Specialty Start Date End Date Harvinder Mendoza DO [facility] [place] [id number] PCP - General Family Medicine 05/30/24 Jaylin Johnson MD [address] [place] [address] Consulting Physician Dermatology 11/14/24 Lizbeth Guevara PA-C [address] [place] [address] Vascular Surgery 11/14/24 Goals (unrecognized section and content) Goals may [...] BE BASED ON THE PRIMARY CLINICAL RECORDS. [facility]. provides no warranty or guarantee of the accuracy or completeness of information in this document.
--- NOTE | 2024-12-29 09:40 | HP.PCM_ITS ---
HPI - General HPI Narrative NANCIE PATEL, is a 69 M who presents his venous insufficiency and SVT. Recall that he has slightly atypical appearance of bilateral lower leg venous stasis dermatitis; in appearance, consistent with stasis dermatitis, just an abnormal distribution with scattered focal areas of skin changes which is primarily medial ankles but also anterior and posterolateral. More recently, he has also had unprovoked RLE SVT despite excellent adherence to conservative care measures with measured compression stockings, leg elevation at times of rest, and increased exercise. He was initially diagnosed with thrombosed R calf varicose veins 08/15/24 and treated conservatively with ASA/NSAIDs/warm compresses/compression/elevation but he had progressive palpable cord into his thigh and worsened discomfort so with suspicion of propagating SVT initiated on Xarelto 20mg daily. He has since had improvement in his symptoms with resolved erythema, focal edema. He had updated duplex prior to his appointment demonstrating R GSV SVT, consistent with prior suspicion of propagated SVT. He also had venous reflux study 07/25/24 which demonstrated bilateral SFJ, GSV, and ASV incompetence. As above, he has very consistently been wearing his compression stockings. He has had some improvement in his stasis dermatitis with these efforts in addition to topical steroid as needed though symptoms do persist to some degree. Additionally, he has aching discomfort in his bilateral calves. He has seen improvement in SVT-related symptoms with Xarelto. He is tolerating Xarelto well without adverse bleeding. [facility] Medical History Hypertension Home Medications ?Medication ?Instructions ?Recorded ?Last Taken ?Type aspirin 81 mg tablet,delayed 81 mg PO QDAY 06/14/24 Un known History release (Adult Low Dose Aspirin) lisinopril 20 mg tablet 20 mg PO QDAY 06/14/24 Unkno wn History ascorbate calcium (vitamin C) 500 1 g PO QDAY 06/29/24 Unknown History mg capsule lisinopril 10 mg tablet 10 mg PO QDAY 06/29/24 Unkno wn History lutein 40 mg capsule 40 mg PO QDAY 06/29/24 Unkno wn History magnesium oxide 300 mg PO .wkly 06/29/24 Unk nown History zinc glycinate 20 mg capsule 20 mg PO .wkly 06/29/24 U nknown History rivaroxaban 20 mg tablet (Xarelto) 20 mg PO QDAY #30 t abs 09/06/24 Unknown Rx Allergy/AdvReac Type Severity Reaction Status Date / Time penicillin G Allergy Severe Rash Verified 09/28/24 13:54 Family History Other CVA (cerebral vascular accident) Hypertension Surgical History H/O basal cell carcinoma excision (~2024) Social History Smoking Status: Former smoker Tobacco: How many years used: 2 ROS Constitutional Constitutional: Denies chills, fever(s), frequent falls, lethargy or weakness Eyes Eyes: Denies blind spots, change in vision or loss of vision ENT HEENT: Denies bleeding gums, hoarseness or sore throat Cardiovascular Cardiovascular: Denies abdominal pain, bluish discoloration of hand/feet, chest pain with activity, claudication, cold extremities, cyanosis, dyspnea on exertion, erythema on extremities, irregular heart rhythm, leg edema, leg ulcers, numbness in extremities or weakness in extremities Respiratory/Chest Respiratory/Chest: Denies cough, excessive phlegm production, shortness of breath at rest, shortness of breath with exertion or wheezing Gastrointestinal Gastrointestinal: Denies anorexia, change in stool character, constipation, diarrhea, melena or rectal bleeding Genitourinary Genitourinary: Denies dysuria or hematuria Musculoskeletal Musculoskeletal: Denies abnormal gait Integumentary Integumentary: Reports other Details: ; Denies erythema, non-healing lesions or wounds Neurologic Neurologic: Denies abnormal speech, focal weakness, headache(s), loss of vision, numbness, paresthesias or sensory deficit Hematologic/Lymphatic Hematologic/Lymphatic: Denies easy bleeding, easy bruising or lymphadenopathy Vital Signs Vital Signs Vital Signs: Weight Weight: 215 lb Body Mass Index (BMI) 28.3 Physical Exam Const alert, oriented x3, no apparent distress and healthy appearing General Appearance: cooperative; Negative for combative or lethargic Orientation / Consciousness: awake Exam Limitations: no limitations HEENT Head and Scalp: normocephalic and atraumatic Eyes EOMs intact bilaterally General Eye: normal appearance of both eyes Neck full ROM General: trachea midline Resp normal respiratory effort and no use of accessory muscles Effort and Inspection: Negative for labored, stridor or audible wheezes Cardio regular rate and regular rhythm Back/Spine Cervical Spine: cervical ROM normal Extremity full ROM, normal capillary refill and no clubbing, cyanosis or edema Skin no rashes or lesions noted and no wounds Neuro oriented x3, CN's II-XII intact bilaterally, no focal motor deficits and no sensory deficits noted Psych thought process normal, cooperative, affect normal, speech normal and activity/motor behavior normal Assessment & Plan Assessment/Plan (1) Symptomatic varicose veins of both lower extremities: PLAN: -with pain and stasis dermatitis on left -SVT initiated in varicosities on right -plan left GSV ablation today; will pursue right ablation in future
--- NOTE | 2024-12-29 14:00 | OP.PCM_ITS ---
Operative Report (Standard) Operative Information Date of Procedure: 12/29/24 Pre-Operative Diagnosis: Venous insufficiency with painful varicose veins and stasis dermatitis of the left lower extremity Post-Operative Diagnosis: Same Surgery/Procedure Performed: Left great saphenous vein ablation, chemical plasterer tender: No Type of Anesthesia: Local Procedure Start Time: 10:00 Procedure Stop Time: 10:30 Select all DRAINS/GRAFTS/IMPLANTS that apply: None Estimated Blood Loss: 1 Specimen collected: No Description of surgery: HPI: Patient is a 69-year-old male with stasis dermatitis and varicose veins that are painful of the left lower extremity. He had venous duplex evaluation which revealed great saphenous vein reflux throughout. He presents now for left great saphenous vein chemical ablation. Description of procedure: Upon obtaining informed consent and verification correct patient procedure site the patient was taken to the [facility] [employer] he was positioned prepped and draped in usual sterile fashion. Time was performed and the great saphenous vein interrogated with ultrasound found to be continuous from the malleolus to the saphenofemoral junction with no significant tortuosity. There was 1 segment that had duplicated great saphenous and a large caliber accessory saphenous that we can been with the great saphenous at the knee. The accessory branch was actually larger caliber and looked to be more easily navigated with our catheter so the plan was to access and selectively advanced heart devices through that accessory branch. Skin overlying the saphenous vein at the ankle was anesthetized with 1% lidocaine the vessel ac cessed with a micropuncture needle wire. This was then exchanged for a 7 Hebrew ablation sheath which was advanced without resistance. Through the 7 Hebrew sheath a [facility] [facility] [employer] [employer] wire was advanced and under ultrasound guidance navigated into the accessory saphenous branch and ultimately traversed to the saphenofemoral junction. The glue delivery guide was then advanced over the wire position 5 cm inferior to the saphenofemoral junction. The glue delivery catheter which had been prepped for manufactures instructions was then advanced through the guide and positioned 5 cm inferior to the saphenofemoral junction. Glue was then deposited from this point downward along the entirety of the treatment zone to just above the sheath. The guide and catheter were then withdrawn followed by removal of the sheath and 5 minutes of manual pressure till hemostasis was observed. The saphenofemoral junction was evaluated with the ultrasound and found to be patent and compressible with no evidence of thrombus or chemical ablation material within the deep system. Dry sterile dressing and Alex wrap were then applied the patient was taken to the recovery area with plan discharge to home. Surgical Findings: See above Complications Complications: No
== END 2024-12-29 11:30 | disposition home or self-care (01) ==
PROVIDERS: PCP Family Medicine; Referring Provider Surgery Trauma Surgery; Visit Provider Surgery Trauma Surgery
DX: I83.12 Varicose veins of left lower extremity with inflammation (principal); I83.813 Varicose veins of bilateral lower extremities with pain; I10 Essential (primary) hypertension; Z79.82 Long term (current) use of aspirin; Z79.01 Long term (current) use of anticoagulants; Z79.899 Other long term (current) drug therapy; Z87.891 Personal history of nicotine dependence
CPT/HCPCS: 36482; C1894

== ENCOUNTER → 2025-01-02 | Outpatient (CLI) | payer MEDICARE, OTHER, SELFPAY ==
--- NOTE | 2025-01-02 08:48 | VDLE_ITS ---
Reason For Study Reason For Study: S/P Lt GSV/ASV Chemical Ablation RIGHT LEFT Rt GSV is PARTIALLY COMPRESSIBLE with hyperechoic GSV is NONCOMPRESSIBLE with bright intraluminal intraluminal echoes from SFJ to mid thigh. GSV is echoes from SFJ to knee. GSV branches off at prox dilated and NONCOMPRESSIBLE at dist thigh. GSV is calf and is compressible through distal calf. compressible knee to ankle. ASV branches from GSV at prox calf and is dilated and CFV is compressible, spontaneous, phasic, competent NONCOMPRESSIBLE to ankle. Findings are consistent and demonstrates normal augmentation. with recent chemical ablation. FV is compressible, spontaneous, phasic, competent CFV is compressible, spontaneous, phasic, competent, and demonstrates normal augmentation. and demonstrates normal augmentation. POP V is compressible, spontaneous, phasic, competent FV is compressible, spontaneous, phasic, competent and demonstrates normal augmentation. and demonstrates normal augmentation. T/P Trunk is compressible. POP V is compressible, spontaneous, phasic, competent PTV is compressible. and demonstrates normal augmentation. RT PerV is compressible. T/P Trunk is compressible. Procedure PTV is compressible. This is a venous duplex using B-mode, color flow and LT PerV is compressible. spectral Doppler. Exam performed in department. The exam was diagnostic. VL/Venous Duplex US - Neeraj Extrem Interpretation Summary Left great saphenous vein and accessory saphenous vein occluded consistent with recent chemical ablation. Acute on chronic superficial thrombus noted in the right great saphenous vein Deep veins of the bilateral lower extremities are patent and compressible segme ntally. There is no evidence of bilateral lower extremity deep vein thrombosis. Ordering Physician: Lizbeth Guevara Referring Physician: Denton Connor Performed By: Jeromy Paredes, RVT
== END | disposition home or self-care (01) ==
LOC: CVS 08:47
PROVIDERS: PCP Family Medicine; Referring Provider Physician Assistant; Visit Provider Physician Assistant
DX: Z48.812 Encounter for surgical aftercare following surgery on the circulatory system (principal); I83.893 Varicose veins of bilateral lower extremities with other complications
CPT/HCPCS: 93970

== ENCOUNTER 2025-03-16 07:24 | Day surgery (SDC) | payer MEDICARE, OTHER, SELFPAY ==
[2025-03-15 10:24] VITALS: BMI 29.0
--- OUTSIDE RECORDS SUMMARY | 2025-03-16 07:29 | XMS RPT_ITS | CCD ---
Author Organization [facility] CliniSyri Care Team Providers Care Compacting Machine Operator/Tender Name Role Phone [place], Sana S Unavailable Unavailable [place], Sana S Unavailable Unavailable [place], Sana S Unavailable Unavailable [place], Sana S Unavailable Unavailable [place], Sana S Unavailable Unavailable [place], Sana S Unavailable Unavailable [place], Sana Unavailable Unavailable [place], Sana S Unavailable Unavailable Rocky, Avirup Unavailable Unavailable Rocky, Avirup Unavailable Unavailable [place], Sana S Unavailable Unavailable Unavailable , Dr. Sana Hernández Attending Unavailabl e , Dr. Sana Hernández Referring Unavailabl e , Dr. Sana Hernández Primary Care Unavailabl e Cueto II, Dr. Jaspal Levi Attending Unavai lababiola Cueto II, Dr. Jaspal Levi Referring Jose Ramon Doyle, Dr. Sana Hernández Primary Care Unavailabl e [place] DO, Sana S Primary Care Provider [place] DO, Sana S Unavailable [phone] ROYAL, SANA S Primary Care Unavailable ROYAL, SANA S Primary Care Unavailable ROYAL, SANA S Primary Care Unavailable ROYAL, SANA S Primary Care Unavailable ROYAL, SANA S Primary Care Unavailable ROYAL, SANA S Primary Care Unavailable [place] DO, Sana S Primary Care Provider [place] DO, Sana S Unavailable ROYAL, SANA S [...] Provider Reji DO, Dr. Chawla Referring Provider [phone] Lizbeth Hughes Attending Provider Lizbeth Hughes Referring Provider [phone] Charles SAUNDERS, Dr. Blount Attending Provider [place] DO, Sana S Unavailable Reji DO, Harvinder Primary Care Provider [phone] ROYAL, SANA S Referring Unavailable ROYAL, SANA [...] Care Unavailable REJI, HARVINDER R. Attending Unavailable Reji DO, Dr. Chawla Primary Care Provider Reji DO, Dr. Chawla Referring Provider Guevara PA, Lizbeth Attending Provider [phone] Guevara PA, Lizbeth Referring Provider Charles SAUNDERS, Dr. Blount Attending Provider Ismael PA, Lizbeth Other Provider Charles SAUNDERS, Dr. Blount Referring Provider Charles SAUNDERS, Dr. Blount Other Provider Reji DO, Dr. Chawla Primary Care Provider Guevara PA, Lizbeth Attending Provider Reji DO, Dr. Chawla Referring Provider Vib[place]um, Jose Alejandro Attending Unavailable Guevara, Lizbeth Referring Unavailable Reji, Harvinder Primary Care Unavailable Reji, Harvinder Primary Care Unavailable Reji, [...] Harvinder Referring Unavailable Guevara, Lizbeth Attending Unavailable Charles, Jose Alejandro Referring Unavailable Reji, Harvinder Primary Care Unavailable Guevara, Lizbeth Consulting Unavailable [place]um, Jose Alejandro Attending Unavailable Charles, Jose Alejandro Consulting Unavailable Reji, Harvinder Primary Care Unavailable Guevara, Lizbeth Attending Unavailable Guevara, Lizbeth Referring Unavailable [place]um, Jose Alejandro Referring Unavailable [place], Jose Alejandro Attending Unavailable Reji, Harvinder Primary Care Unavailable Reji, Harvinder Primary Care Unavailable Guevara, Lizbeth Attending Unavailable Guevara, Lizbeth Referring Unavailable Charles, Jose Alejandro Referring Unavailable Reji, Harvinder Primary Care Unavailable Guevara, Lizbeth Consulting Unavailable Charles, Jose Alejandro Attending Unavailable Reji, Harvinder Primary Care Unavailable Guevara, Lizbeth Attending Unavailable Guevara, Lizbeth Referring Unavailable Guevara, Lizbeth Referring Unavailable Reji, Harvinder Primary Care Unavailable Guevara, Lizbeth Attending Unavailable Guevara, Lizbeth Referring Unavailable Reji, Harvinder Primary Care Unavailable Guevara, Lizbeth Attending Unavailable [place]um, Jose Alejandro Attending Unavailable Reji, Harvinder Primary Care Unavailable Guevara, Lizbeth Referring Unavailable Reji, Harvinder Primary Care Unavailable Guevara, Lizbeth Referring Unavailable Charles, Jose Alejandro Attending Unavailable Guevara, Lizbeth Referring Unavailable Reji, Harvinder Primary Care Unavailable [place]um, Jose Alejandro Attending Unavailable [place]um, Jose Alejandro Attending Unavailable Reji, Harvinder Primary Care Unavailable Guevara, Lizbeth Referring Unavailable Allergies Allergy Classification Reported Allergen(s) Allergy Type Date of Onset Reaction(s) Facility Penicillins (antibiotic) (3 sources) Penicillins; Translations: [Penicillins] Drug Allergy Hives [facility] Work Phone: (20 sources) Penicillins; Translations: [penicillins] Propensity to adverse reactions to drug (disorder) 3 [facility], Unknown, [facility] Repository (8 sources) Bee Venom Protein (Honey Bee); Translations: [BEE VENOM PROTEIN (HONEY BEE)] Propensity to adverse reactions to drug 5 [facility] (8 sources) Penicillin G Drug Allergy 5 [facility] (1 source) Penicillin Drug Allergy 5 [facility] Repository Medications Current Medications Medication Drug Class(es) Dates Sig (Normalized) Sig (Original) [id number] 200 actuat albuterol 0.09 mg/actuat metered dose [...] Ascorbate Calcium (Vitamin C) 500 mg capsule (8 sources) Start: 06-29-2024 take 1 g by [...] Sana Doyle DO Start : 14-Nov-2019 Active azithromycin 250 [...] Start: 11-17-2022 take 2 tablets by mo [facility] once daily lisinopril 10 mg tablet Indications: Secondary hypertension Take 2 tablets (20 mg) by mouth once daily. 90 tablet 3 11/17/2022 Active Start: 11-14-2019 End: 08-16-2024 take 1 tablet by mouth once daily lisinopriL (PRINIVIL,ZESTRIL) 20 MG tablet Take 1 (one) tablet (20 mg total) by mouth daily . 90 tablet 3 07/12/2024 Active Start: 11-14-2019 take 1 tablet by desiree [...] Discontinued (Reorder) lutein 40 mg oral capsule (8 sources) Start: 06-29-2024 take 1 capsule by [...] Magnesium Oxide 300 mg magne sium tablet (8 sources) Start: 06-29-2024 Magnesium Oxid e 300 mg magnesium tablet Active 300 mg PO .wkly June 29, 2024 1:00am Start: 06-29-2024 Magnesium Oxid e 300 mg magnesium tablet Discontinued 300 mg PO .wkly June 29, 2024 1:00am multivitamin (THERAGRAN) per tablet (4 sources) take 1 tablet by mouth once daily multivitamin (THERAGRAN) per tablet Take 1 (one) tablet by mouth daily . Active omega-3 fatty acids-fish oil (One-Per-Day [place]-3) 684-1,200 mg capsule (2 sources) End: 08-17-2023 omega-3 fatty acids-fish oil (One-Per-Day [place]-3) 684-1,200 mg capsule Take by mouth. 0 08/17/2023 Discontinued (Med List Cleanup) omega-3 fatty ac ids-fish oil (One-Per-Day [place]-3) 684-1,200 mg capsule Take by mouth. 0 Active omega-3 fatty acids/fish oil (fish oil-omega-3 fatty acids) 300-1,000 mg capsule (4 sources) take 2 capsules by mouth once daily omega-3 fatty acids/fish oil (fish oil-omega-3 fatty acids) 300-1,000 mg capsule Take 2 (two) capsules by mouth daily . Active pantoprazole 20 mg delayed release oral tablet (7 sources) Proton Pump Inhibitor Start: 08-23-19 End: 11-15-19 pantoprazole (PROTONIX) 20 MG tablet Indications: Gastroesophageal reflux disease, unspecified whether esophagitis present Take 1 (one) tablet (20 mg total) by mouth as needed . 30 tablet 11/14/2024 Active predniSONE 10 mg oral tablet (1 source) Start: 08-27-19 take 6 tablets by mouth once daily, [...] red yeast rice 600 mg oral capsule (4 sources) take 1 capsule by mouth twice daily red yeast rice 600 mg cap Take by mouth 2 (two) times a day . Active rosuvastatin calcium 5 mg oral tablet (1 source) HMG-CoA Reductase Inhibitor Start: take 1 tablet by mouth once daily [...] Active vitamin b12 1 mg oral tablet (8 sources) Vitamin B12 take 1 tablet by [...] times a week. 0 Active zinc glycinate (8 sources) Start: 06-29-2024 Zinc Glycinate 20 mg [...] 0 Refills: 0 Ordered: 18-Jul-2019 DO Active [place] 3 CAPS (4 sources) [place] 3 CAPS DANIEL E DIRECTED. Refills: 0 DO Active [place] 3 CAPS DANIEL E DIRECTED. Refills: 0 Active [place] 3 CAPS (11 sources) [place] 3 CAPS DANIEL E DIRECTED. Quantity: 0 Refills: 0 Ordered: 18-Jul-2019 DO Active [place] 3 CAPS (3 sources) [place] 3 CAPS DANIEL E DIRECTED. Refills: 0 DO Active [place] 3 CAPS DANIEL E DIRECTED. Refills: 0 Active rivaroxaban 20 mg oral tablet (6 sources) Factor Xa Inhibitor Start: 09-06-2024 End: 12-29-2024 take 1 tablet by mouth once daily at dinner Rivaroxaban (Xarelto) 20 mg tablet Discontinued 20 mg PO daily 30 0 September 06, 2024 12:00am December 29, 2024 10:50am must administer with evening meal Vitamin C TABS (11 sources) Vitamin C TABS T UZIEL 1 TABLET DAILY. Quantity: 0 Refills: 0 Ordered: 18-Jul-2019 DO Active Problems Active Problems Problem Classification Problem Date Documented Date Episodic/Chronic Acute bronchitis (3 sources) Acute bronchitis; Translations: [Acute bronchitis, unspecified] Onset: 5 08-26-2024 Episodic Allergic reactions (12 sources) Non-celiac gluten sensitivity; Translations: [Celiac disease] Onset: 4 09-14-2023 Chronic Cancer; other and unspecified primary (7 sources) History of neoplasm of uncertain behavior; Translations: [Personal history of other specified diseases] Episodic Coronary atherosclerosis and other heart disease (7 sources) Calcification of coronary artery; Translations: [Elevated coronary artery calcium score] Chronic Disorders of lipid metabolism (20 sources) Hyperlipidemia; Translations: [Other and unspecified hyperlipidemia] Onset: 3 11-17-2022 Chronic E Codes: Adverse effects of medical drugs (2 sources) Adverse effect of antihyperlipidemic and antiarteriosclerotic drugs, initial encounter; Translations: [Adverse effect of antihyperlipidemic and antiarteriosclerotic drugs, initial encounter] Onset: 4 Episodic Esophageal disorders (20 sources) Gastroesophageal reflux disease without esophagitis; Translations: [Gastro-esophageal reflux disease without esophagitis] Onset: 4 09-14-2023 Chronic Essential hypertension (20 sources) Hypertensive disorder; Translations: [Unspecified essential hypertension] Onset: 3 11-17-2022 Chronic Hypertension with complications and secondary hypertension (6 sources) Secondary hypertension; Translations: [Secondary hypertension, unspecified] Onset: 3 11-17-2022 Chronic Immunizations and screening for infectious disease (11 sources) Patient encounter status; Translations: [Other specified vaccination] Episodic Nonspecific chest pain (9 sources) Atypical chest pain; Translations: [Other chest pain] Episodic Osteoarthritis (9 sources) Disorder of acromioclavicular joint; Translations: [Primary osteoarthritis, unspecified shoulder] Onset: 4 11-02-2023 Chronic Other aftercare (2 sources) Surgical follow-up; Translations: [Encounter for surgical aftercare following surgery on the circulatory system] 12-30-2024 Episodic Other aftercare (1 source) Encounter for surgical aftercare following surgery on the circulatory system; Translations: [Encounter for surgical aftercare following surgery on the circulatory system] Onset: 5 Episodic Other connective tissue disease (7 sources) Pain in right lower limb; Translations: [Pain in right leg] 08-12-2024 Episodic Other diseases of veins and lymphatics (20 sources) Peripheral venous insufficiency; Translations: [Venous insufficiency (chronic) (peripheral)] 06-29-2024 Episodic Other diseases of veins and lymphatics (10 sources) Disorder of vein of lower extremity; Translations: [Venous insufficiency (chronic) (peripheral)] 09-28-2024 Episodic Other diseases of veins and lymphatics (2 sources) Venous insufficiency (chronic) (peripheral); Translations: [Venous insufficiency (chronic) (peripheral)] Onset: 5 Episodic Other injuries and conditions due to external causes (2 sources) At low risk for fall; Translations: [History of falling] 11-14-2024 Episodic Other injuries and conditions due to external causes (2 sources) History of falling; Translations: [History of falling] Onset: 5 Episodic Other liver diseases (20 sources) Steatosis of liver; Translations: [Other chronic nonalcoholic liver disease] Onset: 3 11-17-2022 Chronic Other liver diseases (7 sources) Enzyme level - finding; Translations: [Rising PSA remaining within normal limits] Episodic Other lower respiratory disease (1 source) Cough; Translations: [Subacute cough] 08-22-2024 Episodic Other nervous system disorders (4 sources) Other chronic pain; Translations: [Other chronic pain] Onset: 4 Chronic Other nervous system disorders (3 sources) Drug-induced myopathy; Translations: [Drug-induced myopathy] Onset: 4 04-18-2024 Episodic Other non-traumatic joint disorders (11 sources) Polyarthropathy; Translations: [Polyarthritis, unspecified] Onset: 4 09-14-2023 Chronic Other non-traumatic joint disorders (4 sources) Polyarthritis, unspecified; Translations: [Polyarthritis, unspecified] Onset: 4 Chronic Other nutritional; endocrine; and metabolic disorders (7 sources) Obesity; Translations: [Obesity, unspecified] Chronic Other nutritional; endocrine; and metabolic disorders (3 sources) Overweight in adulthood with body mass index of 25 or more but less than 30; Translations: [Body Mass Index 29.0-29.9, adult] Episodic Residual codes; unclassified (20 sources) Obstructive sleep apnea syndrome; Translations: [Obstructive sleep apnea (adult)(pediatric)] Onset: 3 11-17-2022 Chronic Spondylosis; intervertebral disc disorders; other back problems (20 sources) Cervical arthritis; Translations: [Spondylosis without myelopathy or radiculopathy, cervical region] Onset: 11-02-2023 Chronic Unclassified (8 sources) Patient encounter status; Translations: [Screening for colorectal cancer] 06-03-2024 Varicose veins of lower extremity (20 sources) Varicose veins of lower extremity; Translations: [Varicose veins of bilateral lower extremities with other complications] Onset: 06-29-2024 Episodic Past or Other Problems Problem Classification Problem Date Documented Da te Episodic/Chronic Diabetes mellitus without complication (20 sources) Hyperglycemia; Translations: [Other abnormal glucose] Onset: 11-17-2022 Resolved: 08-17-2023 11-17-2022 Episodic Genitourinary symptoms and ill-defined conditions (3 sources) Nocturia; Translations: [Nocturia] Onset: 08-14-2023 Episodic Heart valve disorders (20 sources) Heart murmur; Translations: [Undiagnosed cardiac murmurs] Onset: 11-17-2022 11-17-2022 Episodic Malaise and fatigue (14 sources) Fatigue; Translations: [Other fatigue] Onset: 09-14-2023 09-14-2023 Episodic Mood disorders (12 sources) Mood disorders Onset: 05-30-2024 05-30-2024 Nutritional deficiencies (9 sources) Cobalamin deficiency; Translations: [Deficiency of other specified B group vitamins] Onset: 05-30-2024 05-30-2024 Episodic Other connective tissue disease (1 source) Pain in right leg; Translations: [Pain in right leg] Onset: 09-28-2024 Episodic Other connective tissue disease (1 source) [...] 11-30-2023 04-18-2024 Episodic Other lower respiratory disease (5 sources) Cough; Translations: [Cough] Onset: 08-22-2024 Resolved: 11-14-2024 08-22-2024 Episodic Other nervous system disorders (8 sources) Drug-induced myopathy; Translations: [Toxic myopathy] Onset: [...] Episodic Other nutritional; endocrine; and metabolic disorders (15 sources) Body mass index 25-29 - overweight; Translations: [Body Mass Index 29.0-29.9, adult] Onset: 06-03-2024 05-30-2024 Episodic Other nutritional; endocrine; and metabolic disorders (2 sources) Overweight; Translations: [Overweight] Onset: 05-30-2024 Episodic Other screening for suspected conditions (not mental disorders or infectious disease) (20 sources) Cardiovascular stress test abnormal; Translations: [Patient encounter status] Onset: 11-17-2022 11-17-2022 Episodic Other skin disorders (20 sources) Alopecia areata; Translations: [Alopecia areata] Onset: 11-17-2022 11-17-2022 Episodic Other skin disorders (7 sources) Alopecia totalis; 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] Onset: 06-03-2024 05-30-2024 Episodic Other skin disorders (2 sources) Alopecia (capitis) totalis; 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 [place] [address] OFFICE VISIT Date of Service: 01/12/25 MR#: [id number] Acct: [id number] Name: NANCIE PATEL Rep #: [id number] : 1955 Provider: SAMEER Burnett Age/Sex: 69/M Location: [facility] Status: Signed Intake Vital Signs 12/29/24 08:46 01/12/25 08:31 Height 6 ft 1 in Weight: 220 lb BP 146/84 H Blood Pressure Location Lt brachial Position Sitting Respiration 16 Pulse 75 Pulse Source Monitor Temp 97.8 F Temp Source Temporal Pulse Oximetry (%) 100 Oxygen Delivery Method room air Intake Visit Reasons: Post ablation 2-4 WK FU Is patient in pain?: No Allergies penicillin G Allergy (Severe, Verified 01/12/25 08:34) Rash Medications ???Medication ???Instructions ???Recorded ???Confirmed ???Type aspirin 81 mg tablet,delayed 81 mg PO QDAY 06/14/24 01/12/25 Hi story release (Adult Low Dose Aspirin) lisinopril 20 mg tablet 20 mg PO QDAY 06/14/24 01/12/25 Hi story ascorbate calcium (vitamin C) 500 1 g PO QDAY 06/29/24 01/12/25 His tory mg capsule lisinopril 10 mg tablet 10 mg PO QDAY 06/29/24 01/12/25 Hi story lutein 40 mg capsule 40 mg PO QDAY 06/29/24 01/12/25 Hi story magnesium oxide 300 mg PO .wkly 06/29/24 01/12/25 History zinc glycinate 20 mg capsule 20 mg PO .wkly 06/29/24 01/12/25 H istory Have you fallen in the past year?: No PFSH Medical History Hypertension Surgical History H/O basal cell carcinoma excision ( 2024) Family History Other CVA (cerebral vascular accident) Hypertension Social History Smoking Status: Former smoker Tobacco: How many years used: 2 HPI HPI HPI: NANCIE PATEL, is a 69 M who presents to the office today for follow-up s/p L GSV chemical adhesive ablation on 12/29/24. 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 Recall he had prior reflux study in 07/2024 which demonstrated R SFJ (0.99cm), GSV, ASV, and tunnel inspector vein reflux. He reports he tolerated the procedure very well, did not even require conscious sedation ultimately. He has had some soreness/achiness along the treated area but otherwise no significant concerns. The access site is healing well. He has continued to wear his compression stockings and participate in conservative management diligently. ROS General General: No weight change, appetite, [...] bleeding, No anemia and No blood clots Additional Details: asa Neuro Neurologic: No system reviewed and no [...] loss, No numbness, No other visual disturbances, No radicular pain, No restless legs, No sensory deficit, No syncope, No tingling, No tremor(s), No weakness and No other Exam Const General: cooperative, healthy appearing, comfortable and no acute distress Nutritional Appearance: average body habitus Orientation: alert, awake and oriented x3 HENMT Head: normocephalic and atraumatic Ears: hearing grossly normal bilaterally and external ears normal Nose: external nose normal Eyes General: appeara (more content not included)... Normal [facility] Venous Duplex US - Neeraj Extre [facility] 01-02-2025 Venous Duplex US - Neeraj Extrem [facility] Cardiovascular Services [address] [place] [address] Venous Duplex US - Neeraj Extrem 01/02/25 0904 MR#: [id number] Acct: [id number] Name: NANCIE PATEL Rep #: [id number] : 1955 69 From: Jose Alejandro Soto MD Attending Dr: SAMEER Burnett Status: DEP CLI Ordering Dr: Lizbeth Guevara Date: 01/02/25 Location: CVS Sex: M C Admitted: Reason For Study Reason For Study: S/P Lt GSV/ASV Chemical Ablation RIGHT LEFT Rt GSV is PARTIALLY COMPRESSIBLE with hyperechoic GSV is NONCOMPRESSIBLE with bright intraluminal intraluminal echoes from SFJ to mid thigh. GSV is echoes from SFJ to knee. GSV branches off at prox dilated and NONCOMPRESSIBLE at dist thigh. GSV is calf and is compressible through distal calf. compressible knee to ankle. ASV branches from GSV at prox calf and is dilated and CFV is compressible, spontaneous, phasic, competent NONCOMPRESSIBLE to ankle. Findings are consistent and demonstrates normal augmentation. with recent chemical ablation. FV is compressible, spontaneous, phasic, competent CFV is compressible, spontaneous, phasic, competent, and demonstrates normal augmentation. and demonstrates normal augmentation. POP V is compressible, spontaneous, phasic, competent FV is compressible, spontaneous, phasic, competent and demonstrates normal augmentation. and demonstrates normal augmentation. T/P Trunk is compressible. POP V is compressible, spontaneous, phasic, competent PTV is compressible. and demonstrates normal augmentation. RT PerV is compressible. T/P Trunk is compressible. Procedure PTV is compressible. This is a venous duplex using B-mode, color flow and LT PerV is compressible. spectral Doppler. Exam performed in department. The exam was diagnostic. VL/Venous Duplex US - Neeraj Extrem Interpretation Summary Left great saphenous vein and accessory saphenous vein occluded consistent with recent chemical ablation. Acute on chronic superficial thrombus noted in the right great saphenous vein Deep veins of the bilateral lower extremities are patent and compressible segmentally. There is no evidence of bilateral lower extremity deep vein thrombosis. ___ Ordering Physician: Lizbeth Guevara Referring Physician: Harvinder Mendoza Performed By: Jeromy Paredes, RVHadley 01/11/25 1313 Date Jose Alejandro Soto MD CC: SAMEER Burnett; Dr. Harvinder Mendoza, Date Dictated: 01/02/25 0904 Date Transcribed: 01/11/25 1313 Angle Roll Operator: Signed Normal [facility] Operative Reporton 5 Operative Report [facility] Medical Records Department [address] [place] [address] Operative Report 12/29/24 1400 MR#: [id number] Acct: [id number] Name: NANCIE PATEL Rep #: [id number] : 1955 69 From: Jose Alejandro Soto MD PCP: Dr. Harvinder Mendoza, Status:[facility] Location: [facility] Operative Report (Standard) Operative Information Date of Procedure: 12/29/24 Pre-Operative Diagnosis: Venous insufficiency with painful varicose veins and stasis dermatitis of the left lower extremity Post-Operative Diagnosis: Same Surgery/Procedure Performed: Left great saphenous vein ablation, chemical component lab tech: No Type of Anesthesia: Local Procedure Start Time: 10:00 Procedure Stop Time: 10:30 Select all DRAINS/GRAFTS/IMPLANTS that apply: None Estimated Blood Loss: 1 Specimen collected: No Description of surgery: HPI: Patient is a 69-year-old male with stasis dermatitis and varicose veins that are painful of the left lower extremity. He had venous duplex evaluation which revealed great saphenous vein reflux throughout. He presents now for left great saphenous vein chemical ablation. Description of procedure: Upon obtaining informed consent and verification correct patient procedure site the patient was taken to the Improvement Engineer he was positioned prepped and draped in usual sterile fashion. Time was performed and the great saphenous vein interrogated with ultrasound found to be continuous from the malleolus to the saphenofemoral junction with no significant tortuosity. There was 1 segment that had duplicated great saphenous and a large caliber accessory saphenous that we can been with the great saphenous at the knee. The accessory branch was actually larger caliber and looked to be more easily navigated with our catheter so the plan was to access and selectively advanced heart devices through that accessory branch. Skin overlying the saphenous vein at the ankle was anesthetized with 1% lidocaine the vessel accessed with a micropuncture needle wire. This was then exchanged for a 7 [place] Islander ablation sheath which was advanced without resistance. Through the 7 [place] Islander sheath a Akros Siliconson wire was advanced and under ultrasound guidance navigated into the accessory saphenous branch and ultimately traversed to the saphenofemoral junction. The glue delivery guide was then advanced over the wire position 5 cm inferior to the saphenofemoral junction. The glue delivery catheter which had been prepped for manufactures instructions was then advanced through the guide and positioned 5 cm inferior to the saphenofemoral junction. Glue was then deposited from this point downward along the entirety of the treatment zone to just above the sheath. The guide and catheter were then withdrawn followed by removal of the sheath and 5 minutes of manual pressure till hemostasis was observed. The saphenofemoral junction was evaluated with the ultrasound and found to be patent and compressible with no evidence of thrombus or chemical ablation material within the deep system. Dry sterile dressing and Alex wrap were then applied the patient was taken to the recovery area with plan discharge to home. Surgical Findings: See above Complications Complications: No 12/29/24 4394 Cosigner Signature (if applicable): CC: SAMEER Burnett; Dr. Harvinder Mendoza DO; Dr. Jose Alejandro Soto MD Signed Normal [facility] CBC (INCLUDES DIFF/PLT)on Basophils (Bld) [#/Vol] 0.052 10*3/uL Normal 0-200 [facility] Comment on above: Performed By: #### 3 6127, 27438, 5363, 6399, 7600, 496, 927 #### [facility] [address], [address] [place], [place] [id number] Automatic Lump Making Machine Tender: Abdiaziz Shanks MD Basophils/100 WBC (Bld) 1.1 % Normal [facility] Comment on above: Performed By: #### 3 6127, 93691, 5363, 6399, 7600, 496, 927 #### [facility] [address], [address] [place], [place] [address] Automatic Lump Making Machine Tender: Abdiaziz Shanks MD Eosinophils (Bld) [#/Vol] 0.202 10*3/uL Normal 15-500 [facility] Comment on above: Performed By: #### 3 6127, 91186, 5363, 6399, 7600, 496, 927 #### [facility] of [address], [address] [place] [address] Automatic Lump Making Machine Tender: Abdiaziz Shanks MD Eosinophils/100 WBC (Bld) 4.3 % Normal [facility] Comment on above: Performed By: #### 3 6127, 23221, 5363, 6399, 7600, 496, 927 #### [facility] of [address], [address] [place] [address] Automatic Lump Making Machine Tender: Abdiaziz Shanks MD Erythrocyte distribution width (RBC) [Ratio] 13.0 % Normal 11.0-15.0 [facility] Comment on above: Performed By: #### 3 6127, 89775, 5363, 6399, 7600, 496, 927 #### [facility] of [place] [address] Automatic Lump Making Machine Tender: Abdiaziz Shanks MD Hematocrit (Bld) [Volume fraction] 46.0 % Normal 38.5-50.0 [facility] Comment on above: Performed By: #### 3 6127, 86076, 5363, 6399, 7600, 496, 927 #### [facility] of [place] [address] Automatic Lump Making Machine Tender: Abdiaziz Shanks MD Hemoglobin (Bld) [Mass/Vol] 15.1 g/dL Normal 13.2-17.1 [facility] Comment on above: Performed By: #### 3 6127, 50049, 5363, 6399, 7600, 496, 927 #### [facility] of [place] [address] Automatic Lump Making Machine Tender: Abdiaziz Shanks MD Lymphocytes (Bld) [#/Vol] 1.335 10*3/uL Normal 850-3900 [facility] Comment on above: Performed By: #### 3 6127, 55635, 5363, 6399, 7600, 496, 927 #### [facility] of [place] [address] Automatic Lump Making Machine Tender: Abdiaziz Shanks MD Lymphocytes/100 WBC (Bld) 28.4 % Normal [facility] Comment on above: Performed By: #### 3 61, 74344, 5363, 6399, 7600, 496, 927 #### [facility] [address], [address] [place] [address] Automatic Lump Making Machine Tender: Abdiaziz Shanks MD MCH (RBC) [Entitic mass] 31.5 pg Normal 27.0-33.0 [facility] Comment on above: Performed By: #### 3 61, 33276, 5363, 6399, 7600, 496, 927 #### [facility] [place] [address] Automatic Lump Making Machine Tender: Abdiaziz Shanks MD MCHC (RBC) [Mass/Vol] 32.8 [...] clinical condition. Performed By: #### 3 61, 80283, 5363, 6399, 7600, 496, 927 #### [facility] [place] [address] Automatic Lump Making Machine Tender: Abdiaziz Shanks MD MCV (RBC) [Entitic vol] 96.0 fL Normal 80.0-100.0 [facility] Comment on above: Performed By: #### 3 61, 89130, 5363, 6399, 7600, 496, 927 #### [facility] [place] [address] Automatic Lump Making Machine Tender: Abdiaziz Shanks MD Monocytes (Bld) [#/Vol] 0.451 10*3/uL Normal 200-950 [facility] Comment on above: Performed By: #### 3 61, 87776, 5363, 6399, 7600, 496, 927 #### [facility] of [place] [address] Automatic Lump Making Machine Tender: Abdiaziz Shanks MD Monocytes/100 WBC (Bld) 9.6 % Normal [facility] Comment on above: Performed By: #### 3 6127, 71978, 5363, 6399, 7600, 496, 927 #### [facility] of [place] [address] Automatic Lump Making Machine Tender: Abdiaziz Shanks MD Neutrophils (Bld) [#/Vol] 2.66 10*3/uL Normal 6293-6034 [facility] Comment on above: Performed By: #### 3 6127, 71660, 5363, 6399, 7600, 496, 927 #### [facility] of [place] [address] Automatic Lump Making Machine Tender: Abdiaziz Shanks MD Neutrophils/100 WBC (Bld) 56.6 % Normal [facility] Comment on above: Performed By: #### 3 6127, 55002, 5363, 6399, 7600, 496, 927 #### [facility] of [place] [address] Automatic Lump Making Machine Tender: Abdiaziz Shanks MD Platelet mean volume (Bld) [Entitic vol] 10.1 fL Normal 7.5-12.5 [facility] Comment on above: Performed By: #### 3 6127, 67452, 5363, 6399, 7600, 496, 927 #### [facility] of [place] [address] Automatic Lump Making Machine Tender: Abdiaziz Shanks MD Platelets (Bld) [#/Vol] 284 10*3/uL Normal 140-400 [facility] Comment on above: Performed By: #### 3 6127, 29991, 5363, 6399, 7600, 496, 927 #### [facility] of [address], [address] [place] [address] Automatic Lump Making Machine Tender: Abdiaziz Shanks MD RBC (Bld) [#/Vol] 4.79 10*6/uL Normal 4.20-5.80 [facility] Comment on above: Performed By: #### 3 6127, 89982, 5363, 6399, 7600, 496, 927 #### [facility] [address], [address] [place] [address] Automatic Lump Making Machine Tender: Abdiaziz Shanks MD WBC (Bld) [#/Vol] 4.7 10*3/uL Normal 3.8-10.8 [facility] Comment on above: Performed By: #### 3 6127, 90723, 5363, 6399, 7600, 496, 927 #### [facility] [place] [address] Automatic Lump Making Machine Tender: Abdiaziz Shanks MD COMPREHENSIVE METABOLIC PANE L W/ANION GAPon 11-14-2024 Albumin [Mass/Vol] 4.4 g/dL Normal 3.6-5.1 [facility] Comment on above: Order Comment: FASTI NG:YES FASTING: YES Performed By: #### 3 6127, 13196, 5363, 6399, 7600, 496, 927 #### [facility] [place] [address] Automatic Lump Making Machine Tender: Abdiaziz Shanks MD ALP [Catalytic activity/Vol] 67 U/L Normal 35-144 [facility] Comment on above: Order Comment: FASTI NG:YES FASTING: YES Performed By: #### 3 6127, 89941, 5363, 6399, 7600, 496, 927 #### [facility] [place] [address] Automatic Lump Making Machine Tender: Abdiaziz Shanks MD ALT [Catalytic activity/Vol] 22 U/L Normal 9-46 [facility] Comment on above: Order Comment: FASTI NG:YES FASTING: YES Performed By: #### 3 6127, 45712, 5363, 6399, 7600, 496, 927 #### [facility] [place] [address] Automatic Lump Making Machine Tender: Abdiaziz Shanks MD AST [Catalytic activity/Vol] 25 U/L Normal 10-35 [facility] Comment on above: Order Comment: FASTI NG:YES FASTING: YES Performed By: #### 3 6127, 89459, 5363, 6399, 7600, 496, 927 #### [facility] [place] [address] Automatic Lump Making Machine Tender: Abdiaziz Shanks MD Bilirubin [Mass/Vol] 1.0 mg/dL Normal 0.2-1.2 [facility] Comment on above: Order Comment: FASTI NG:YES FASTING: YES Performed By: #### 3 6127, 39129, 5363, 6399, 7600, 496, 927 #### [facility] [place] [address] Automatic Lump Making Machine Tender: Abdiaziz Shanks MD Calcium [Mass/Vol] 9.6 mg/dL Normal 8.6-10.3 [facility] Comment on above: Order Comment: FASTI NG:YES FASTING: YES Performed By: #### 3 6127, 44673, 5363, 6399, 7600, 496, 927 #### [facility] [place] [address] Automatic Lump Making Machine Tender: Abdiaziz Shanks MD Chloride [Moles/Vol] 104 mmol/L Normal 98-110 [facility] Comment on above: Order Comment: FASTI NG:YES FASTING: YES Performed By: #### 3 6127, 50731, 5363, 6399, 7600, 496, 927 #### [facility] [place] [address] Automatic Lump Making Machine Tender: Abdiaziz Shanks MD CO2 [Moles/Vol] 26 mmol/L Normal 20-32 [facility] Comment on above: Order Comment: FASTI NG:YES FASTING: YES Performed By: #### 3 6127, 13396, 5363, 6399, 7600, 496, 927 #### [facility] [place] [address] Automatic Lump Making Machine Tender: Abdiaziz Shanks MD Creatinine [Mass/Vol] 1.05 mg/dL Normal 0.70-1.28 [facility] Comment on above: Order Comment: FASTI NG:YES FASTING: YES Performed By: #### 3 6127, 64465, 5363, 6399, 7600, 496, 927 #### [facility] [place] [address] Automatic Lump Making Machine Tender: Abdiaziz Shanks MD ELECTROLYTE BALANCE 7 mmol/L (calc) Normal 7-17 [facility] Comment on above: Order Comment: FASTI NG:YES FASTING: YES Performed By: #### 3 6127, 91833, 5363, 6399, 7600, 496, 927 #### [facility] [place] [address] Automatic Lump Making Machine Tender: Abdiaziz Shanks MD GFR/1.73 sq M.predicted among non-blacks MDRD (S/P/Bld) [Vol rate/Area] 76 mL/min/{1.73_m2} Normal > OR = 60 [facility] Comment on above: Order Comment: FASTI NG:YES FASTING: YES Performed By: #### 3 6127, 38741, 5363, 6399, 7600, 496, 927 #### [facility] [place] [address] Automatic Lump Making Machine Tender: Abdiaziz Shanks MD Glucose [Mass/Vol] 98 mg/dL Normal 65-99 [facility] Comment on above: Order Comment: FASTI NG:YES FASTING: YES Result Comment: Fasting reference interval Performed By: #### 3 6127, 04454, 5363, 6399, 7600, 496, 927 #### [facility] [place] [address] Automatic Lump Making Machine Tender: Abdiaziz hSanks MD Potassium [Moles/Vol] 4.7 mmol/L Normal 3.5-5.3 [facility] Comment on above: Order Comment: FASTI NG:YES FASTING: YES Performed By: #### 3 6127, 94269, 5363, 6399, 7600, 496, 927 #### [facility] [place] [address] Automatic Lump Making Machine Tender: Abdiaziz Shanks MD Protein [Mass/Vol] 6.8 g/dL Normal 6.1-8.1 [facility] Comment on above: Order Comment: FASTI NG:YES FASTING: YES Performed By: #### 3 6127, 75763, 5363, 6399, 7600, 496, 927 #### [facility] [address], [address] [place] [address] Automatic Lump Making Machine Tender: Abdiaziz Shanks MD Sodium [Moles/Vol] 137 mmol/L Normal 135-146 [facility] Comment on above: Order Comment: FASTI NG:YES FASTING: YES Performed By: #### 3 6127, 50672, 5363, 6399, 7600, 496, 927 #### [facility] [place] [address] Automatic Lump Making Machine Tender: Abdiaziz Shanks MD Urea nitrogen [Mass/Vol] 18 mg/dL Normal 7-25 [facility] Comment on above: Order Comment: FASTI NG:YES FASTING: YES Performed By: #### 3 6127, 15285, 5363, 6399, 7600, 496, 927 #### [facility] [place] [address] Automatic Lump Making Machine Tender: Abdiaziz Shanks MD HEMOGLOBIN A1con 11-14-2024 HbA1c [...] diagnosis of diabetes in children. According to [place] Diabetes Association (ADA) guidelines, hemoglobin A1c <7.0% represents optimal control in non- diabetic patients. Different metrics may apply to specific patient populations. Standards of Medical Care in Diabetes(ADA). Performed By: #### 3 6127, 16084, 5363, 6399, 7600, 496, 927 #### [facility] [address], [address] [place] [address] Automatic Lump Making Machine Tender: Abdiaziz Shanks MD LIPID PANEL, [facility] 06-3 0 Cholesterol [Mass/Vol] 257 mg/dL High <200 [facility] Comment on above: Order Comment: FASTI NG:YES FASTING: YES Performed By: #### 3 6127, 49667, 5363, 6399, 7600, 496, 927 #### [facility] [address], [address] [place] [address] Automatic Lump Making Machine Tender: Abdiaziz Shanks MD Cholesterol in HDL [Mass/Vol] 53 mg/dL Normal > OR = 40 [facility] Comment on above: Order Comment: FASTI NG:YES FASTING: YES Performed By: #### 3 6127, 54225, 5363, 6399, 7600, 496, 927 #### [facility] [address], [address] [place] [address] Automatic Lump Making Machine Tender: Abdiaziz Shanks MD Cholesterol in LDL [Mass/Vol] [...] LDL-C. Cesar SS et al. HOLLY. 2013;310(19): 4436-7146 (http://education.[employer].Food Runner/faq/WDX396) Performed By: #### 3 6127, 85026, 5363, 6399, 7600, 496, 927 #### [facility] [address], [address] [place] [address] Automatic Lump Making Machine Tender: Abdiaziz Shanks MD Cholesterol.total/ Cholesterol in HDL [Mass ratio] 4.8 {ratio} Normal <5.0 [facility] Comment on above: Order Comment: FASTI NG:YES FASTING: YES Performed By: #### 3 6127, 58036, 5363, 6399, 7600, 496, 927 #### [facility] [address], [address] [place] [address] Automatic Lump Making Machine Tender: Abdiaziz Shanks MD NON HDL CHOLESTEROL 204 mg/dL (calc) High <130 [facility] Comment on above: Order Comment: FASTI NG:YES FASTING: YES Result Comment: For patients with diabetes plus 1 major ASCVD risk factor, treating to a non-HDL-C goal of <100 mg/dL (LDL-C of <70 mg/dL) is considered a therapeutic option. Performed By: #### 3 6127, 81452, 5363, 6399, 7600, 496, 927 #### [facility] [place] [address] Automatic Lump Making Machine Tender: Abdiaziz Shanks MD Triglyceride [Mass/Vol] 126 mg/dL Normal <150 [facility] Comment on above: Order Comment: FASTI NG:YES FASTING: YES Performed By: #### 3 6127, 49716, 5363, 6399, 7600, 496, 927 #### [facility] [place] [address] Automatic Lump Making Machine Tender: Abdiaziz Shanks MD PSA, TOTALon 11-14-2024 PSA, [...] absence of disease. Performed By: #### 3 6127, 11272, 5363, 6399, 7600, 496, 927 #### [facility] [address], [address] [place] [address] Automatic Lump Making Machine Tender: Abdiaziz Shanks MD TEST AUTHORIZATIONon 025 CLIENT CONTACT: VICKI TABOR Normal [facility] Comment on above: Performed By: #### 3 6127, 63618, 5363, 6399, 7600, 496, 927 #### [facility] [address], [address] [place] [address] Automatic Lump Making Machine Tender: Abdiaziz Shanks MD COMMENT Normal [facility] Comment on above: Result Comment: Plea se have the ordering physician or his or her authorized community relations representative sign a copy of this report and promptly return it by faxing it to: [phone] or by returning the form to your mechanical press operator. Performed By: #### 3 6127, 67620, 5363, 6399, 7600, 496, 927 #### [facility] [address], [address] [place] [address] Automatic Lump Making Machine Tender: Abdiaziz Shanks MD REPORT ALWAYS MESSAGE SIGNATURE Normal [facility] Comment on above: Result Comment: The laboratory testing on this patient was verbally requested or confirmed by the ordering physician or his or her authorized community relations representative after contact with an employee of [employer]. Federal regulations require that we maintain on file written authorization for all laboratory testing. Accordingly we are asking that the ordering physician or his or her authorized community relations representative sign a copy of this report and promptly return it to the client onboarding analyst. Signature: Performed By: #### 3 6127, 98356, 5363, 6399, 7600, 496, 927 #### [facility] [address], [address] [place] [address] Automatic Lump Making Machine Tender: Abdiaziz Shanks MD TEST CODE: 7600SB Normal [facility] Comment on above: Performed By: #### 3 6127, 12385, 5363, 6399, 7600, 496, 927 #### [facility] [place] [address] Automatic Lump Making Machine Tender: Abdiaziz Shanks MD TEST NAME: LIPID PANEL, STANDARD Normal [facility] Comment on above: Performed By: #### 3 6127, 10273, 5363, 6399, 7600, 496, 927 #### [facility] [place] [address] Automatic Lump Making Machine Tender: Abdiaziz Shanks MD TSH W/REFLEX TO FT4on 2024 TSH W/REFLEX TO FT4 2.27 mIU/L Normal 0.40-4.50 [facility] Comment on above: Performed By: #### 3 6127, 13081, 5363, 6399, 7600, 496, 927 #### [facility] [place] [address] Automatic Lump Making Machine Tender: Abdiaziz Shanks MD VITAMIN B12on 11-14-2024 Cobalamin (Vitamin B12) [Mass/Vol] 696 pg/mL Normal 200-1100 [facility] Comment on above: Performed By: #### 3 6127, 07838, 5363, 6399, 7600, 496, 927 #### [facility] [place] [address] Automatic Lump Making Machine Tender: Abdiaziz Shanks MD Venous Duplex US, Unilateral on 11-09-2024 Venous Duplex US, Unilateral [facility] [address] [place] [address] Venous Duplex US, Unilateral 11/09/24 0954 MR#: [id number] Acct: [id number] Name: NANCIE PATEL Rep #: [id number] : 1955 69 From: Jose Alejandro Soto [...] Physician: Harvinder Mendoza Performed By: Michela Talbert, RDCS, RVT 11/09/241718 Date Jose Alejandro Soto MD CC: SAMEER Burnett; Dr. Harvinder Mendoza DO Date Dictated: 11/09/24 0954 Date Transcribed: 11/09/241718 Angle Roll Operator: Signed Normal [facility] Venous duplex ultrasound rep ortOrdered By: Jose Alejandro Soto on 11-09-2024 US Vein [facility] Cardiovascular Services [address] [place] [address] Venous Duplex US, Unilateral 11/09/24 0954 MR#: [id number] Acct: [id number] Name: NANCIE PATEL Rep #:[id number] : 1955 69 From: Jose Alejandro Cunha [...] Mendoza Performed By: Michela Talbert, AGUILAR, RVT 11/09/24 1719 Date _ Jose Alejandro Soto MD CC: SAMEER Burnett; Dr. Harvinder Mendoza, ~ Date Dictated: 11/09/24 0954 Date Transcribed: 11/09/24 1719 Angle Roll Operator: Signed [facility] Work Phone: Venous duplex ultrasound rep ortOrdered By: Jose Alejandro Soto on 09-29-2024 US Vein [facility] Cardiovascular Services [address] [place] [address] Venous Duplex US, Unilateral 09/28/24 1259 MR#: [id number] Acct: [id number] Name: NANCIE PATEL Rep #:[id number] : 1955 69 From: Jose Alejandro Cunha [...] Dictated: 09/28/24 1259 Date Transcribed: 09/29/24 075 Angle Roll Operator: Brook [facility] Work Phone: MR/BMS.Son 09-28-2024 MR/BMS.[facility] Vascular Surgery [address] [facility] [place] [address] OFFICE VISIT Date of Service: 09/28/24 MR#: [id number] Acct: [id number] Name: NANCIE PATEL Rep #: [id number] : 1955 Provider: SAMEER Burnett Age/Sex: 69/M Location: [facility] Status: Signed Intake Vital Signs 09/28/24 13:52 [...] bleeding, No (more content not included)... Normal [facility] Venous Duplex US, Unilateral on 09-28-2024 Venous Duplex US, Unilateral [facility] Cardiovascular Services [address] [place] [address] Venous Duplex US, Unilateral 09/28/24 1259 MR#: [id number] Acct: [id number] Name: NANCIE PATEL Rep #: [id number] : 1955 69 From: Jose Alejandro Soto [...] Physician: Harvinder Mendoza Performed By: Jeromy Paredes, [place] 09/29/24 0750 Date Jose Alejandro Soto MD CC: SAMEER Burnett; Dr. Harvinder Mendoza DO Date Dictated: 09/28/24 1259 Date Transcribed: 09/29/24 0750 Angle Roll Operator: Signed Normal [facility] MR/BMSAric 09-06-2024 MR/CANDIE.ROBERTO CARLOS [facility] Vascular Surgery [address] [place] [address] OFFICE VISIT Date of Service: 09/06/24 MR#: [id number] Acct: [id number] Name: NANCIE PATEL Rep #: [id number] : 1955 Provider: SAMEER Burnett Age/Sex: 69/M Location: [facility] Status: Signed Intake Vital Signs 09/06/24 11:34 Weight: 220 lb BP 145/81 H Blood Pressure Location Lt brachial Position Sitting Respiration 16 Pulse 75 Pulse Source Monitor Temp 97.8 F Temp Source Temporal Pulse Oximetry (%) 98 Oxygen Delivery Method room air Intake Visit Reasons: Pain in R Groin Chief Complaint: Pain in R Groin Barrel Assembler Required: No Is patient in pain?: Yes [...] habitus Orientation: alert, awake and oriented x3 [facility] Head: normocephalic and atraumatic Ears: hearing grossly [...] rhythm Skin (more content not included)... Normal [facility] Venous duplex ultrasound rep ortOrdered By: Jose Alejandro Soto on 08-15-2024 US Vein [facility] Cardiovascular Services [address] [place] [address] Venous Duplex US, Unilateral 08/12/24 1050 MR#: [id number] Acct: [id number] Name: NANCIE PATEL Rep #:[id number] : 1955 68 From: Jose Alejandro Cunha [...] Referring Physician: Lizbeth Guevara Performed By: Joy Braxton RVT 08/15/24 1325 Date _ Jose Alejandro Soto MD CC: SAMEER Burnett; Dr. Harvinder Mendoza, DO ~ Date Dictated: 08/12/24 1050 Date Transcribed: 08/15/24 1325 Angle Roll Operator: Signed [facility] Work Phone: MR/BMS.Umesh 08-12-2024 MR/BMS.S [facility] Vascular Surgery [address] [facility] [place] [address] OFFICE VISIT Date of Service: 08/12/24 MR#: [id number] Acct: [id number] Name: NANCIE PATEL Rep #: [id number] : 1955 Provider: SAMEER Burnett Age/Sex: 68/M Location: [facility] Status: Signed Intake Vital Signs 08/12/24 10:02 [...] Ears: hear (more content not included)... Normal [facility] Venous Duplex US, Unilateral on 08-12-2024 Venous Duplex US, Unilateral [facility] Cardiovascular Services [address] [place] [address] Venous Duplex US, Unilateral 08/12/24 1050 MR#: [id number] Acct: [id number] Name: NANCIE PATEL Rep #: [id number] : 1955 68 From: Jose Alejandro Soto MD Attending Dr: SAMEER Burnett Status: REG I Ordering Dr: Lizbeth Guevara Date: 08/12/24 Location: [facility] Sex: M C Admitted: Reason For [...] Physician: Lizbeth Guevara Performed By: Joy Braxton, T 08/15/24 1325 Date Jose Alejandro Soto MD CC: SAMEER Burnett; Dr. Harvinder Mendoza DO Date Dictated: 08/12/24 1050 Date Transcribed: 08/15/24 1325 Angle Roll Operator: Signed Normal [facility] Venous Duplex US - Neeraj [facility] 07-25-2024 Venous Duplex US - Neeraj Extrem [facility] Cardiovascular [place] [address] Venous Duplex US - Neeraj Extrem 07/25/24 0919 MR#: [id number] Acct: [id number] Name: EMICK,NANCIE LEVI Rep #: [id number] : 1955 68 From: Jose Alejandro Soto [...] is INCOMPETENT for greater than 0.5 GSV tunnel inspector at proximal calf measuring 32cm from seconds [...] saphenous vein in calf, and proximal calf tunnel inspector. Positive for reflux in the left saphenofemoral junction, great saphenous vein throughout, accessory saphenous vein proximal thigh, accessory saphenous vein at knee ___ Ordering Physician: Lizbeth Guevara Referring Physician: Harvinder Mendoza DO Performed By: Jaylene Le RVT and Student 07/25/24 1603 Date Jose Alejandro Soto MD CC: SAMEER Burnett; Dr. Harvinder Mendoza DO Date Dictated: 07/25/24918 Date Transcribed: 07/25/241602 Angle Roll Operator: Signed Normal [facility] Venous duplex ultrasound rep ortOrdered By: Jose Alejandro Soto on 07-25-2024 US Vein [facility] Cardiovascular Services [address] [place] [address] Venous Duplex US - Neeraj Extrem 07/25/24918 MR#: [id number] Acct: [id number] Name: NANCIE PATEL Rep #:[id number] : 1955 68 From: Jose Alejandro Cunha [...] knee isINCOMPETENT for greater than 0.5 GSV tunnel inspector at proximal calf measuring 32cm from seconds [...] saphenous vein in calf, and proximal calf tunnel inspector. Positive for reflux in the left saphenofemoral junction, great saphenous vein throughout, accessory saphenous vein proximal thigh, accessory saphenous vein at knee ___ Ordering Physician: Lizbeth Guevara Referring Physician: Harvinder Mendoza DO Performed By: Jaylene Le RVT and Student 07/25/24 1603 Date _ Jose Alejandro Soto MD CC: SAMEER Burnett; Dr. Harvinder Mendoza DO ~ Date Dictated: 07/25/24918 Date Transcribed: 07/25/241602 Angle Roll Operator: Signed [facility] Work Phone: MR/Avi 06-29-2024 MR/S [facility] [address] [place] [address] OFFICE VISIT Date of Service: 06/29/24 MR#: [id number] Acct: [id number] Name: NANCIE PATEL Rep #: [id number] : 1955 Provider: SAMEER Burnett Age/Sex: 68/M Location: [facility] Status: Signed Intake Vital Signs 06/29/24 13:16 [...] many years used: 2 HPI HPI HPI: NANCEI PATEL, is a 68 M who presents [...] appearing, comfortable (more content not included)... Normal [facility] DUPLEX AAA SCREENINGon DUPLEX AAA SCREENING Patient Info Name: NANCIE PATEL Age: 68 years : 1955 Gender: Male Exam Date: 06/09/2024 7:38 AM Patient Status: Outpatient Rehabilitation Caseworker: Fang Dominguez BS, RDMS, RVT Referring Physician: HARVINDER MENDOZA ; Indications - former smoker, screen for AAA Z13.6 - Encounter for screening for cardiovascular disorders Procedure Description 09854 Ultrasound, abdominal aorta, real time with image [...] ThuJun 09, 2024 10:19:06 AM EST Normal [facility] Basic metabolic 2000 panelon 04-11-2024 Anion gap [Moles/Vol] 11 mmol/L Normal 10-20 [facility] Comment on above: Performed By: #### 2 857-1 #### ARAVIND AZAR ([id number]) [facility] ([facility]) [address] [place] [address] 01885 Calcium [Mass/Vol] 9.8 mg/dL Normal 8.6-10.3 [facility] Comment on above: Performed By: #### 2 857-1 #### ARAVIND AZAR ([id number]) [facility] ([facility]) [address] [place] [address] 34741 Chloride [Moles/Vol] 103 mmol/L Normal 98-107 [facility] Comment on above: Performed By: #### 2 857-1 #### ARAVIND AZAR ([id number]) [facility] ([facility]) [address] [place] [address] 91180 CO2 [Moles/Vol] 30 mmol/L Normal 21-32 [facility] Comment on above: Performed By: #### 2 857-1 #### ARAVIND AZAR (70635) [facility] ([facility]) [address] [place] [address] 48630 Creatinine [Mass/Vol] 0.90 mg/dL Normal 0.50-1.30 [facility] Comment on above: Performed By: #### 2 857-1 #### ARAVIND AZAR (52759) [facility] ([facility]) [address] [place] [address] 98508 GFR/1.73 sq M.predicted MDRD (S/P/Bld) [Vol rate/Area] mL/min/{1.73_m2} Normal >60 [facility] Comment on above: Result Comment: Calc ulations of estimated GFR are performed using the 2020 CKD-EPI Study Refit equation without the race variable for the IDMS-Traceable creatinine methods. https://jasn.asnjournals.org/content//ASN.320902261 8 Performed By: #### 2 857-1 #### ARAVIND AZAR (54308) [facility] ([facility]) [address] [place] [address] 42405 Glucose [Mass/Vol] 93 mg/dL Normal 74-99 [facility] Comment on above: Performed By: #### 2 857-1 #### ARAVIND AZAR (67659) [facility] ([facility]) [address] [place] [address] 85770 Potassium [Moles/Vol] 4.7 mmol/L Normal 3.5-5.3 [facility] Comment on above: Performed By: #### 2 857-1 #### ARAVIND AZAR (51487) [facility] ([facility]) [address] [place] [address] 17781 Sodium [Moles/Vol] 139 mmol/L Normal 136-145 [facility] Comment on above: Performed By: #### 2 857-1 #### ARAVIND AZAR (13941) [facility] ([facility]) [address] [place] [address] 98728 Urea nitrogen [Mass/Vol] 13 mg/dL Normal 6-23 [facility] Comment on above: Performed By: #### 2 857-1 #### ARAVIND AZAR (85802) [facility] ([facility]) [address] [place] [address] 74219 Creatine kinaseon 04-11-2024 CK [Catalytic activity/Vol] 482 U/L High 0-325 [facility] Comment on above: Performed By: #### 2 857-1 #### ARAVIND AZAR (63291) [facility] ([facility]) [facility] [place] [address] Lipid 1996 panelon 4 Cholesterol [Mass/Vol] 235 mg/dL High 0-199 [facility] Comment on above: Result Comment: Age [...] By: #### 2 857-1 #### ARAVIND AZAR (85692) [facility] ([facility]) [address] [place], [place] [address] Cholesterol in HDL [Mass/Vol] 58.0 mg/dL Normal [facility] Comment on above: Result Comment: Age Very Low Low Normal High 0-19 Y < 35 < 40 40-45 ---- 20-24 Y ---- < 40 >45 ---- >24 Y ---- < 40 40-60 >60 Performed By: #### 2 857-1 #### ARAVIND AZAR (90751) [facility] ([facility]) [address] [place] [address] 40865 Cholesterol in LDL [Mass/Vol] 162 mg/dL High <=99 [facility] Comment on above: Result Comment: Near Borderline AGE Desirable Optimal High High Very High 0-19 Y 0 - 109 --- 110-129 >/= 130 ---- 20-24 Y 0 - 119 --- 120-159 >/= 160 ---- >24 Y 0 - 99 100-129 130-159 160-189 >/=190 Performed By: #### 2 857-1 #### ARAVIND AZAR (68976) [facility] ([facility]) [address] [place] [address] Cholesterol in VLDL [Mass/Vol] 15 mg/dL Normal 0-40 [facility] Comment on above: Performed By: #### 2 857-1 #### ARAVIND AZAR (07294) [facility] ([facility]) [address] [place] [address] 60287 CHOLESTEROL/HDL RATIO 4.1 Normal [facility] Comment on above: Result Comment: Ref Values Desirable < 3.4 High Risk > 5.0 Performed By: #### 2 857-1 #### ARAVIND AZAR (01585) [facility] ([facility]) [address] [place] [address] 60013 NON HDL CHOLESTEROL 177 mg/dL High 0-149 [facility] Comment on above: Result Comment: Age Desirable Borderline High High Very High 0-19 Y 0 - 119 120 - 144 >/= 145 >/= 160 20-24 Y 0 - 149 150 - 189 >/= 190 ---- >24 Y 30 mg/dL above LDL Cholesterol goal Performed By: #### 2 857-1 #### ARAVIND AZAR (29762) [facility] ([facility]) [address] [place] [address] 70836 Triglyceride [Mass/Vol] 75 mg/dL Normal 0-149 [facility] Comment on above: Result Comment: Age [...] By: #### 2 857-1 #### ARAVIND AZAR (93391) [facility] ([facility]) [address] [place] [address] 05838 Cobalaminson 11-30-2023 Cobalamin (Vitamin B12) [Mass/Vol] 263 pg/mL Normal 211-911 [facility] Comment on above: Performed By: #### 2 857-1 #### ARAVIND AZAR (72891) [facility] ([facility]) [address] [place] [address] 50885 Phosphateon 11-30-2023 Phosphate [Mass/Vol] 2.9 mg/dL Normal 2.5-4.9 [facility] Comment on above: Result Comment: The performance characteristics of phosphorus testing in heparinized plasma have been validated by the individual laboratory site where testing is performed. Testing on heparinized plasma is not approved by the FDA; however, such approval is not necessary. Performed By: #### 2 857-1 #### ARAVIND AZAR ([id number]) [facility] ([facility]) [address] [place] [address] 00377 Creatine kinaseon 11-18-2023 CK [Catalytic activity/Vol] 651 U/L High 0-325 [facility] Comment on above: Performed By: #### 2 857-1 #### ARAVIND AZAR (53086) [facility] ([facility]) [address] [place] [address] 91081 Creatine kinaseon 10-19-2023 CK [Catalytic activity/Vol] 738 U/L High 0-325 [facility] Comment on above: Performed By: #### 2 857-1 #### ARAVIND AZAR ([id number]) [facility] ([facility]) [address] [place] [address] 57304 XR CERVICAL SPINE 2-3 VIEWSo n 10-19-2023 XR CERVICAL SPINE 2-3 VIEWS Interpreted By: Yenny Perez, STUDY: XR CERVICAL SPINE 2-3 VIEWS; 10/19/2023 8:48 am 3 views. INDICATION: Signs/Symptoms:neck pain and bilateral shoulder pain. COMPARISON: None. ACCESSION NUMBER(S): [id number] ORDERING CLINICIAN: SANA DOYLE FINDINGS: There is [...] Yenny Perez 10/20/2023 8:39 AM Dictation workstation: [address] XR SHOULDER LEFT 2+ VIEWSon 10-19-2023 XR SHOULDER LEFT 2+ VIEWS Interpreted By: Yenny Perez, STUDY: XR SHOULDER LEFT 2+ VIEWS; ; 10/19/2023 8:48 am INDICATION: Signs/Symptoms:pain. COMPARISON: None. ACCESSION NUMBER(S): [id number] ORDERING CLINICIAN: SANA DOYLE FINDINGS: Five views left shoulder: There is no fracture or dislocation. There is a degenerative change of the left acromioclavicular joint with mild spurring superiorly. IMPRESSION: Mild left acromioclavicular joint osteoarthritis. MACRO: None Signed by: Yenny Perez 10/20/2023 8:40 AM Dictation workstation: [address] XR SHOULDER RIGHT 2+ VIEWSon 10-19-2023 XR SHOULDER RIGHT 2+ VIEWS Interpreted By: Yenny Perez, STUDY: XR SHOULDER RIGHT 2+ VIEWS; ; 10/19/2023 8:47 am INDICATION: Signs/Symptoms:pain 6 months. COMPARISON: None. ACCESSION NUMBER(S): [id number] ORDERING CLINICIAN: SANA DOYLE FINDINGS: Five views right shoulder: There is no fracture or dislocation. There is degenerative change of the right acromioclavicular joint with mild spurring superiorly and inferiorly. IMPRESSION: Mild right acromioclavicular joint osteoarthritis. MACRO: None Signed by: Yenny Perez 10/20/2023 8:40 AM Dictation workstation: [id number] B. burgdorferi DNA ANDRES+probe Ql (Unsp spec)on 09-14-2023 Specimen source Nom (Unsp spec) Blood [facility] Comment on above: Performed By: #### 4 991-6 #### [facility] (HERB) ([id number]) [address] [place] [address] Borrelia burgdorferi DNAon 0 09-14-2023 B. burgdorferi DNA ANDRES+probe Ql (Unsp spec) Not detected Normal [facility] Comment on above: Result Comment: NOT [...] developed and its performance characteristics determined by [employer]. It has not been cleared or approved by the US Food and Drug Administration. This test was performed in a CLIA certified laboratory and is intended for clinical purposes. Performed By: [facility] [address] [place] [address] Steward/Stewardess Room: Danny Koo MD, PhD CLIA Number: [id number] Performed By: #### 4 991-6 #### [facility] (HERB) ([id number]) [address] [place] [address] C reactive proteinon 024 CRP [Mass/Vol] 0.11 mg/dL Normal <1.00 [facility] Comment on above: Performed By: #### 1 988-5 #### ARAVIND AZAR ([id number]) [facility] ([facility]) [address] [place] [address] 31348 CBC W Auto Differential pane l (Bld)on 09-14-2023 Basophils (Bld) [#/Vol] 0.04 x10*3/uL Normal 0.00-0.10 [facility] Comment on above: Performed By: #### 5 7021-8 #### ARAVIND AZAR (66312) [facility] ([facility]) [address] [place] [address] 50406 Basophils/100 WBC (Bld) 0.9 % Normal 0.0-2.0 [facility] Comment on above: Performed By: #### 5 7021-8 #### ARAVIND AZAR (63623) [facility] ([facility]) [address] [place] [address] 82134 Eosinophils (Bld) [#/Vol] 0.31 x10*3/uL Normal 0.00-0.70 [facility] Comment on above: Performed By: #### 5 7021-8 #### ARAVIND AZAR (41501) [facility] ([facility]) [address] [place] [address] 22033 Eosinophils/100 WBC (Bld) 6.8 % Normal 0.0-6.0 [facility] Comment on above: Performed By: #### 7021-8 #### ARAVIND AZAR (88754) [facility] ([facility]) [address] [place] [address] 43359 Erythrocyte distribution width (RBC) [Ratio] 12.1 % Normal 11.5-14.5 [facility] Comment on above: Performed By: #### 5 7021-8 #### ARAVIND AZAR (68924) [facility] ([facility]) [address] [place] [address] 41647 Hematocrit (Bld) [Volume fraction] 45.9 % Normal 41.0-52.0 [facility] Comment on above: Performed By: #### 5 7021-8 #### ARAVIND AZAR (19663) [facility] ([facility]) [address] [place] [address] 32181 Hemoglobin (Bld) [Mass/Vol] 15.0 g/dL Normal 13.5-17.5 [facility] Comment on above: Performed By: #### 5 7021-8 #### ARAVIND AZAR (36562) [facility] ([facility]) [address] [place] [address] 36912 Immature granulocytes (Bld) [#/Vol] 0.01 x10*3/uL Normal 0.00-0.70 [facility] Comment on above: Performed By: #### 5 7021-8 #### ARAVIND AZAR (47828) [facility] ([facility]) [address] [place] [address] 66767 Immature granulocytes/100 WBC (Bld) 0.2 % Normal 0.0-0.9 [facility] Comment on above: Result Comment: Joellen ture Granulocyte Count (IG) includes promyelocytes, myelocytes and metamyelocytes but does not include bands. Percent differential counts (%) should be interpreted in the context of the absolute cell counts (cells/UL). Performed By: #### 5 7021-8 #### ARAVIND AZAR (07137) [facility] ([facility]) [address] [place] [address] Lymphocytes (Bld) [#/Vol] 1.32 x10*3/uL Normal 1.20-4.80 [facility] Comment on above: Performed By: #### 5 7021-8 #### ARAVIND AZAR (76715) [facility] ([facility]) [address] [place] [address] 49515 Lymphocytes/100 WBC (Bld) 29.1 % Normal 13.0-44.0 [facility] Comment on above: Performed By: #### 5 7021-8 #### ARAVIND AZAR (97637) [facility] ([facility]) [address] [place] [address] 29560 MCH (RBC) [Entitic mass] 31.5 pg Normal 26.0-34.0 [facility] Comment on above: Performed By: #### 5 7021-8 #### ARAVIND AZAR (33243) [facility] ([facility]) [address] [place] [address] 46415 MCHC (RBC) [Mass/Vol] 32.7 g/dL Normal 32.0-36.0 [facility] Comment on above: Performed By: #### 5 7021-8 #### ARAVIND AZAR (98454) [facility] ([facility]) [address] [place] [address] 23805 MCV (RBC) [Entitic vol] 96 fL Normal 80-100 [facility] Comment on above: Performed By: #### 5 7021-8 #### ARAVIND AZAR (08634) [facility] ([facility]) [address] [place] [address] 31491 Monocytes (Bld) [#/Vol] 0.49 x10*3/uL Normal 0.10-1.00 [facility] Comment on above: Performed By: #### 5 7021-8 #### ARAVIND AZAR (56901) [facility] ([facility]) [address] [place] [address] 56963 Monocytes/100 WBC (Bld) 10.8 % Normal 2.0-10.0 [facility] Comment on above: Performed By: #### 5 7021-8 #### ARAVIND AZAR (30802) [facility] ([facility]) [address] [place] [address] 90087 Neutrophils (Bld) [#/Vol] 2.36 x10*3/uL Normal 1.20-7.70 [facility] Comment on above: Result Comment: Perc ent differential counts (%) should be interpreted in the context of the absolute cell counts (cells/uL). Performed By: #### 5 7021-8 #### ARAVIND AZAR (66067) [facility] ([facility]) [address] [place] [address] 00185 Neutrophils/100 WBC (Bld) 52.2 % Normal 40.0-80.0 [facility] Comment on above: Performed By: #### 5 7021-8 #### ARAVIND AZAR (11095) [facility] ([facility]) [address] [place] [address] 30097 Nucleated RBC/100 WBC (Bld) [Ratio] 0.0 /100 WBCs Normal 0.0-0.0 [facility] Comment on above: Performed By: #### 5 7021-8 #### ARAVIND AZAR (52517) [facility] ([facility]) [address] [place] [address] 11970 Platelets (Bld) [#/Vol] 279 x10*3/uL Normal 150-450 [facility] Comment on above: Performed By: #### 5 7021-8 #### ARAVIND AZAR (79057) [facility] ([facility]) [address] [place] [address] 68229 RBC (Bld) [#/Vol] 4.76 x10*6/uL Normal 4.50-5.[address] [facility] Comment on above: Performed By: #### 5 7021-8 #### ARAVIND AZAR (88855) [facility] ([facility]) [address] [place] [address] 47374 WBC (Bld) [#/Vol] 4.5 x10*3/uL Normal 4.4-11.3 [facility] Comment on above: Performed By: #### 5 7021-8 #### ARAVIND AZAR (55647) [facility] ([facility]) [address] [place] [address] 86026 Creatine kinaseon 09-14-2023 CK [Catalytic activity/Vol] 564 U/L High 0-325 [facility] Comment on above: Performed By: #### 2 157-6 #### ARAVIND AZAR (98792) [facility] ([facility]) [address] [place] [address] 53294 ESR Westergren method (Bld) [Velocity]on 09-14-2023 ESR (Bld) [Velocity] 1 mm/h Normal 0-20 [facility] Comment on above: Performed By: #### 4 537-7 #### ARAVIND AZAR (91677) [facility] ([facility]) [address] [place] [address] 11591 Nuclear Abon 09-14-2023 Nuclear Ab Hep2 substrate Ql (S) Negative Normal Negative [facility] Comment on above: Result Comment: The Antinuclear Antibody (JOSE) test was performed using indirect immunofluorescence assay with HEp-2 cells slide. Performed By: #### 5 9069-5 #### KEVIN Gao ([id number]) [facility] ([facility]) [address] [place] [address] 85048 Rheumatoid factoron 09-14-19 24 Rheumatoid factor Nephelometry Qn (S) <10 Normal 0-15 [facility] Comment on above: Performed By: #### 1 5205-8 #### KEVIN Gao (52429) [facility] ([facility]) [address] [place] [address] 30060 Basic metabolic 2000 panelon 03-29-2024 Anion gap [Moles/Vol] 15 mmol/L Normal 10-20 [facility] Comment on above: Performed By: #### 2 4321-2 #### ARAVIND AZAR (23262) [facility] ([facility]) [facility] [place] [address] Calcium [Mass/Vol] 9.6 mg/dL Normal 8.6-10.3 [facility] Comment on above: Performed By: #### 2 4321-2 #### ARAVIND AZAR (57712) [facility] ([facility]) [facility] [place] [address] Chloride [Moles/Vol] 101 mmol/L Normal 98-107 [facility] Comment on above: Performed By: #### 2 4321-2 #### ARAVIND AZAR (55587) [facility] ([facility]) [address] [place] [address] 96297 CO2 [Moles/Vol] 26 mmol/L Normal 21-32 [facility] Comment on above: Performed By: #### 2 4321-2 #### ARAVIND AZAR (04971) [facility] ([facility]) [address] [place] [address] 94254 Creatinine [Mass/Vol] 0.95 mg/dL Normal 0.50-1.30 [facility] Comment on above: Performed By: #### 2 4321-2 #### ARAVIND AZAR (81472) [facility] ([facility]) [address] [place] [address] 90867 Glomerular filtration rate/1.73 sq M.predicted 87 mL/min/1.73m*2 Normal >60 [facility] Comment on above: Result Comment: Calc ulations of estimated GFR are performed using the 2020 CKD-EPI Study Refit equation without the race variable for the IDMS-Traceable creatinine methods. https://jasn.asnjournals.org/content//ASN.560894128 8 Performed By: #### 2 4321-2 #### ARAVIND AZAR (29057) [facility] ([facility]) [address] [place] [address] Glucose [Mass/Vol] 73 mg/dL Low 74-99 [facility] Comment on above: Performed By: #### 2 4321-2 #### ARAVIND AZAR (57123) [facility] ([facility]) [address] [place] [address] 69282 Potassium [Moles/Vol] 4.3 mmol/L Normal 3.5-5.3 [facility] Comment on above: Performed By: #### 2 4321-2 #### ARAVIND AZAR (84325) [facility] ([facility]) [address] [place] [address] 13350 Sodium [Moles/Vol] 138 mmol/L Normal 136-145 [facility] Comment on above: Performed By: #### 2 4321-2 #### ARAVIND AZAR (75065) [facility] ([facility]) [address] [place] [address] 81632 Urea nitrogen [Mass/Vol] 18 mg/dL Normal 6-23 [facility] Comment on above: Performed By: #### 2 4321-2 #### ARAVIND AZAR ([id number]) [facility] ([facility]) [address] [place] [address] 33021 HbA1c (Bld) [Mass fraction]o n 08-14-2023 Average glucose Estimated from glycated hemoglobin (Bld) [Mass/Vol] 108 mg/dL Normal Not Established [facility] Comment on above: Order Comment: Diagn osis of Diabetes-Adults Non-Diabetic: < or = 5.6% Increased risk for developing diabetes: 5.7-6.4% Diagnostic of diabetes: > or = 6.5% Monitoring of Diabetes Age (y)....................... Therapeutic Goal (%) Adults: >18.........................<7.0 Pediatrics: 13-18...................<7.5 Pediatrics: 7-12....................<8.0 Pediatrics: 0-6..................... 7.5-8.5 [employer]. Diabetes Care 33(S1)May 2009 Performed By: #### 4 548-4 #### ARAVIND AZAR (44032) [facility] ([facility]) [facility] [place] [id number] Hemoglobin A1c/Hemoglobin.to frederick 08-14-2023 HbA1c (Bld) [Mass fraction] 5.4 % Normal see below [facility] Comment on above: Order Comment: Diagn osis of Diabetes-Adults Non-Diabetic: < or = 5.6% Increased risk for developing diabetes: 5.7-6.4% Diagnostic of diabetes: > or = 6.5% Monitoring of Diabetes Age (y)....................... Therapeutic Goal (%) Adults: >18.........................<7.0 Pediatrics: 13-18...................<7.5 Pediatrics: 7-12....................<8.0 Pediatrics: 0-6..................... 7.5-8.5 [employer]. Diabetes Care 33(S1)May 2009 Performed By: #### 4 548-4 #### ARAVIND AZAR (33009) [facility] ([facility]) [facility] [place] [address] Prostate specific Agon 08-13 Prostate specific Ag [Mass/Vol] 3.29 ng/mL Normal <=4.00 [facility] Comment on above: Order Comment: The F DA requires that the method used for PSA assay be reported to the physician. Values obtained with different assay methods must not be used interchangeably. This test was performed at [facility] using the [employer] PSA assay is a two-site immunoenzymatic sandwich assay. The assay is approved for measurement of prostate-specific antigen (PSA)in serum and may be used in conjunction with a digital rectal examination in men 50 years and older as an aid in detection of prostate cancer. 3-Itcbw-ncgfgesig inhibitors (e.g. Proscar, Finasteride, Avodart, Dutasteride and Charlee) for the treatment of BPH have been shown to lower PSA levels by an average of 50% after 6 months of treatment. Performed By: #### 2 857-1 #### NAZARIO DOE ([id number]) [facility] ([facility]) [address] [place], [place] [address] BASIC METABOLIC PANELon 07-0 -2022 Anion gap [Moles/Vol] 10 mmol/L Normal 10 - 20 [facility] Comment on above: Performed By: #### B MP #### [address] [address] Calcium [Mass/Vol] 10.0 mg/dL Normal 8.6 - 10.3 [facility] Comment on above: Performed By: #### B MP #### [address] [address] Chloride [Moles/Vol] 102 mmol/L Normal 98 - 107 [facility] Comment on above: Performed By: #### B MP #### [address] [address] Creatinine [Mass/Vol] 0.89 mg/dL Normal 0.50 - 1.30 [facility] With [facility] Comment on above: Performed By: #### B MP #### [address] [address] eGFR MALE >90 Normal >90 Merged With [facility] Comment on above: Result Comment: CALC ULATIONS OF ESTIMATED GFR ARE PERFORMED USING THE 2020 CKD-EPI STUDY REFIT EQUATION WITHOUT THE RACE VARIABLE FOR THE IDMS-TRACEABLE CREATININE METHODS. https://jasn.asnjournals.org/content//ASN.943264961 8 Performed By: #### B MP #### [address] [place] [address] Glucose [Mass/Vol] 98 mg/dL Normal 74 - 99 [facility] Comment on above: Performed By: #### B MP #### [address] [address] HCO3 (Bld) [Moles/Vol] 29 mmol/L Normal 21 - 32 Merged With [facility] Comment on above: Performed By: #### B MP #### [address] [address] Potassium [Moles/Vol] 4.4 mmol/L Normal 3.5 - 5.3 Merged With [facility] Comment on above: Performed By: #### B MP #### [address] [address] Sodium [Moles/Vol] 137 mmol/L Normal 136 - 145 [facility] Comment on above: Performed By: #### B MP #### [address] [address] Urea nitrogen [Mass/Vol] 19 mg/dL Normal 6 - 23 Merged [facility] Comment on above: Performed By: #### B MP #### [address] [address] HEMOGLOBIN A1Con 11-17-2022 Glucose [Mass/Vol] 108 mg/dL Normal [facility] Comment on above: Performed By: #### H BA1E #### [address] [address] HbA1c (Bld) [Mass fraction] 5.4 % Normal Merged [facility] Comment on above: Result Comment: Diag nosis of Diabetes-Adults Non-Diabetic: < or = 5.6% Increased risk for developing diabetes: 5.7-6.4% Diagnostic of diabetes: > or = 6.5% . Monitoring of Diabetes Age (y) Therapeutic Goal (%) Adults: >18 <7.0 Pediatrics: 13-18 <7.5 7-12 <8.0 0- 6 7.5-8.5 [employer]. Diabetes Care 33(S1), May 2009. Performed By: #### H BA1E #### [address] [address] Hemoglobin A1Con 11-17-2022 Glucose [Mass/Vol] 108 mg/dL MP-Uro logy[facility] Work Phone: HbA1c (Bld) [Mass fraction] 5.4 % HC-Kownppb-[place] Work Phone: Comment on above: SOURCE: Diagnosis of Diabetes-Adults Non-Diabetic: < or = 5.6% Increased risk for developing diabetes: 5.7-6.4% Diagnostic of diabetes: > or = 6.5%. Monitoring of Diabetes Age (y) Therapeutic Goal (%) Adults: >18 <7.0 Pediatrics: 13-18 <7.5 7-12 <8.0 0- 6 7.5-8.5 [employer]. Diabetes Care 33(S1), May 2009. Laboratory - Chemistry and C hemistry - challengeon 11-17-2022 Anion gap [Moles/Vol] 10 mmol/L 10 - 20 HC-Wqflpdz-[place] Work Phone: Calcium [Mass/Vol] 10.0 mg/dL 8.6 - 10.3 MP-Uro logy[facility] Work Phone: Chloride [Moles/Vol] 102 mmol/L 98 - 107 HF-Tdnebxe-[place]b [place] Work Phone: CO2 [Moles/Vol] 29 mmol/L 21 - 32 MP-Urolog y-[place] Work Phone: Creatinine [Mass/Vol] 0.89 mg/dL See Below AP-Psqnupm-Bm [place] Work Phone: Comment on above: Reference Range: 0.5 0 - 1.30 Glucose [Mass/Vol] 98 mg/dL 74 - 99 MP-Uro logy-[place] Work Phone: Comment on above: SOURCE: Potassium [Moles/Vol] 4.4 mmol/L 3.5 - 5.3 QV-Twmoall-[place] Work Phone: Sodium [Moles/Vol] 137 mmol/L 136 - 145 MP-Uro logy-[place] Work Phone: Urea nitrogen [Mass/Vol] 19 mg/dL 6 - 23 JQ-Soxvynk-Kb [place] Work Phone: No Panel Informationon 11-17 >90 >90 ZE-Jfkfgwj-[place]w [place] Work Phone: Comment on above: CALCULATIONS OF CHARLEY MATED GFR ARE PERFORMED USING THE 2020 CKD-EPI STUDY REFIT EQUATION WITHOUT THE RACE VARIABLE FOR THE IDMS-TRACEABLE CREATININE METHODS.https://jasn.asnjournals.org/content/early//ASN.2 334262514 TSHon 11-17-2022 TSH Qn 2.63 m[IU]/L Normal 0.44 - 3.98 Merged With [facility] Comment on above: Result Comment: TSH testing is performed using different testing methodology at [facility] than at other [facility]. Direct result comparisons should only be made within the same method. Performed By: #### T SH2 #### [place] [address] Lab Specimen Source Normal Merged With [facility] Comment on above: Performed By: #### T SH2 #### [place] [address] Performed By: #### H BA1E #### [place] [address] Performed By: #### B MP #### [place] [address] TSH - Thyroid Stimulating Ho rmone, Serumon 11-17-2022 TSH Qn 2.63 m[IU]/L See Below SG-Lvccuey-P s [place] Work Phone: Comment on above: SOURCE: Reference Ra nge: 0.44 - 3.98 TSH testing is performed using different testing methodology at [facility] than at other [facility]. Direct result comparisons should only be made within the same method. IO UA (automated w/o microsc opy)on 11-10-2022 Protein (U) [Mass/Vol] Negative RU-Vnqnnga-[place]g [place] Work Phone: IO UA (automated w/o microscopy) Negative ZP-Ezaqlsc-Rd [place] Work Phone: IO UA (automated w/o microscopy) Normal (0.2-1.0 mg/dl) MP-Urolog y-[place] Work Phone: IO UA (automated w/o microscopy) 5.5 1 LX-Epxkjee-Fy [place] Work Phone: IO UA (automated w/o microscopy) 1.025 1 YX-Imgaxhv-[place]t [place] Work Phone: IO UA (automated w/o microscopy) Clear WW-Bzwzplc-Fb [place] Work Phone: IO UA (automated w/o microscopy) Yellow BP-Jspskuk-Rh [place] Work Phone: Office Visit (Urology)on Follow-up visit Diagnoses/Problems Assessed Rising PSA remaining within normal limits Screening for prostate cancer (V76.44) (Z12.5) Nocturia (788.43) (R35.1) Former smoker (V15.82) (Z87.891) Orders Nocturia IO UA (automated w/o microscopy); Status:Complete - Retrospective By Protocol Authorization; Done: 10Nov2022 07:50AM Performed:In Office; Due:[id number]; Last Updated By:Jennifer Escoto; 11/10/2022 7:50:54 AM;Ordered; [...] tablet daily Multi-Vitamins TABSTAKE 1 TABLET DAILY. [place] 3 CAPSTAKE DIRECTED. Vitamin C TABSTAKE 1 TABLET DAILY. Vitals Vital Signs Recorded: 10Nov2022 07:44AM Heart Rate64 Qyhweuiv538 Mdlzqtlpp24 Utuyxb523 lb 6 oz BMI Nwcboggjib55.82 kg/m2 BSA Calculated2.09 Tobacco Useb) No PHQ-2 [...] 10 2022 (more content not included)... Normal [place] Tobacco Screening.on 023 Fall risk assessment a) No falls within the last year BZ-Wifzhkv-[place] Work Phone: Tobacco use status CPHS b) No EZ-Uqdchkz-[place]h [place] Work Phone: Tobacco Screening. Yes MP-Uro logy-[place] Work Phone: BASIC METABOLIC PANELon 06-2 Anion gap [Moles/Vol] 11 mmol/L Normal 10 - 20 [facility] Comment on above: Performed By: #### B MP #### [address] [address] Calcium [Mass/Vol] 9.5 mg/dL Normal 8.6 - 10.3 [facility] Comment on above: Performed By: #### B MP #### [address] [address] Chloride [Moles/Vol] 103 mmol/L Normal 98 - 107 [facility] Comment on above: Performed By: #### B MP #### [address] [address] Creatinine [Mass/Vol] 0.79 mg/dL Normal 0.50 - 1.30 [facility] Comment on above: Performed By: #### B MP #### [address] [address] eGFR MALE >90 Normal >90 [facility] Comment on above: Result Comment: CALC ULATIONS OF ESTIMATED GFR ARE PERFORMED USING THE 2020 CKD-EPI STUDY REFIT EQUATION WITHOUT THE RACE VARIABLE FOR THE IDMS-TRACEABLE CREATININE METHODS. https://jasn.asnjournals.org/content//ASN.778981509 8 Performed By: #### B MP #### [address] [address] Glucose [Mass/Vol] 109 mg/dL High 74 - 99 [facility] Comment on above: Performed By: #### B MP #### [address] [address] HCO3 (Bld) [Moles/Vol] 28 mmol/L Normal 21 - 32 [facility] Comment on above: Performed By: #### B MP #### [address] [address] Potassium [Moles/Vol] 4.3 mmol/L Normal 3.5 - 5.3 [facility] Comment on above: Performed By: #### B MP #### [address] [address] Sodium [Moles/Vol] 138 mmol/L Normal 136 - 145 [facility] Comment on above: Performed By: #### B MP #### [address] [address] Urea nitrogen [Mass/Vol] 13 mg/dL Normal 6 - 23 [facility] Comment on above: Performed By: #### B MP #### [address] [address] HEMOGLOBIN A1Con 11-08-2022 Glucose [Mass/Vol] 105 mg/dL Normal [facility] Comment on above: Performed By: #### H BA1E #### [address] [address] HbA1c (Bld) [Mass fraction] 5.3 % Normal [facility] Comment on above: Result Comment: Diag nosis of Diabetes-Adults Non-Diabetic: < or = 5.6% Increased risk for developing diabetes: 5.7-6.4% Diagnostic of diabetes: > or = 6.5% . Monitoring of Diabetes Age (y) Therapeutic Goal (%) Adults: >18 <7.0 Pediatrics: 13-18 <7.5 7-12 <8.0 0- 6 7.5-8.5 [employer]. Diabetes Care 33(S1), May 2009. Performed By: #### H BA1E #### [address] [address] Hemoglobin A1Con 11-08-2022 Glucose [Mass/Vol] 105 mg/dL MP-Uro logy[facility] Work Phone: HbA1c (Bld) [Mass fraction] 5.3 % HO-Piscosx-[place] Work Phone: Comment on above: Diagnosis of Diabete s-Adults Non-Diabetic: < or = 5.6% Increased risk for developing diabetes: 5.7-6.4% Diagnostic of diabetes: > or = 6.5%. Monitoring of Diabetes Age (y) Therapeutic Goal (%) Adults: >18 <7.0 Pediatrics: 13-18 <7.5 7-12 <8.0 0- 6 7.5-8.5 [employer]. Diabetes Care 33(S1), May 2009. LIPID PANEL (CORONARY RISK 2 )on 11-08-2022 Cholesterol [Mass/Vol] 127 mg/dL Normal 0 - 199 [facility] Comment on above: Result Comment: . AGE [...] dosing. Performed By: #### L IPID #### [address] [address] Cholesterol in HDL [Mass/Vol] 53.0 mg/dL Normal [facility] Comment on above: Result Comment: . AGE VERY LOW LOW NORMAL HIGH 0-19 Y < 35 < 40 40-45 ---- 20-24 Y ---- < 40 >45 ---- >24 Y ---- < 40 40-60 >60 . Performed By: #### L IPID #### [address] [address] Cholesterol in LDL [Mass/Vol] 59 mg/dL Normal 0 - 99 [facility] Comment on above: Result Comment: . NEAR BORD AGE DESIRABLE OPTIMAL HIGH HIGH VERY HIGH 0-19 Y 0 - 109 --- 110-129 >/= 130 ---- 20-24 Y 0 - 119 --- 120-159 >/= 160 ---- >24 Y 0 - 99 100-129 130-159 160-189 >/=190 . Performed By: #### L IPID #### [address] [address] Cholesterol in VLDL [Mass/Vol] 15 mg/dL Normal 0 - 40 [facility] Comment on above: Performed By: #### L IPID #### [address] [address] Cholesterol.total/ Cholesterol in HDL [Mass ratio] 2.4 {ratio} Normal [facility] Comment on above: Result Comment: REF VALUES DESIRABLE < 3.4 HIGH RISK > 5.0 Performed By: #### L IPID #### [address] [address] Triglyceride [Mass/Vol] 75 mg/dL Normal 0 - 149 [facility] Comment on above: Result Comment: . AGE [...] dosing. Performed By: #### L IPID #### [address] [address] Laboratory - Chemistry and C hemistry - challengeon 11-08-2022 Anion gap [Moles/Vol] 11 mmol/L 10 - 20 XP-Bnagkkc-[place] Work Phone: Calcium [Mass/Vol] 9.5 mg/dL 8.6 - 10.3 MP-Uro logy-[place] Work Phone: Chloride [Moles/Vol] 103 mmol/L 98 - 107 UQ-Pcuabnu-Jo [place] Work Phone: CO2 [Moles/Vol] 28 mmol/L 21 - 32 MP-Urolog y-[place] Work Phone: Creatinine [Mass/Vol] 0.79 mg/dL See Below CX-Htlifoi-Vx h[place] Work Phone: Comment on above: Reference Range: 0.5 0 - 1.30 Glucose [Mass/Vol] 109 mg/dL above high threshold 74 - 99 IM-Wfrobdl-Cv [place] Work Phone: Potassium [Moles/Vol] 4.3 mmol/L 3.5 - 5.3 HK-Vybnmss-Bi [place] Work Phone: Sodium [Moles/Vol] 138 mmol/L 136 - 145 MP-Uro logy-[place] Work Phone: Urea nitrogen [Mass/Vol] 13 mg/dL 6 - 23 XK-Ndgeywn-Xh [place] Work Phone: Lipid Panelon 11-08-2022 Cholesterol [Mass/Vol] 127 mg/dL 0 - 199 VD-Swnbixb-Wg [place] Work Phone: Comment on above: . [...] dosing. Cholesterol in HDL [Mass/Vol] 53.0 mg/dL DB-Deqetqg-Mn [place] Work Phone: Comment on above: . AGE VERY LOW LOW N ORMAL HIGH 0-19 Y < 35 < 40 40-45 ---- 20- 24 Y ---- < 40 >45 ---- >24 Y ---- < 40 40-60 >60. Cholesterol in LDL [Mass/Vol] 59 mg/dL 0 - 99 WS-Rgscwai-Eu [place] Work Phone: Comment on above: . NEAR BORD AGE MARIYA RABLE OPTIMAL HIGH HIGH VERY HIGH 0-19 Y 0 - 109 --- 110-129 >/= 130 ---- 20-24 Y 0 - 119 --- 120-159 >/= 160 ---- >24 Y 0 - 99 100-129 130-159 160-189 >/=190. Cholesterol.total/ Cholesterol in HDL [Mass ratio] 2.4 {ratio} PU-Krjznvf-Do [place] Work Phone: Comment on above: REF VALUESDESIRABLE < 3.4HIGH RISK > 5.0 Triglyceride [Mass/Vol] 75 mg/dL 0 - 149 IH-Sqlzhus-Gd [place] Work Phone: Comment on above: . [...] Lipid Panel 15 mg/dL 0 - 40 PF-Arlvsub-Rz [place] Work Phone: No Panel Informationon 11-08 >90 >90 EQ-Ghwvlmw-Ss [place] Work Phone: Comment on above: CALCULATIONS OF CHARLEY MATED GFR ARE PERFORMED USING THE 2020 CKD-EPI STUDY REFIT EQUATION WITHOUT THE RACE VARIABLE FOR THE IDMS-TRACEABLE CREATININE METHODS.https://jasn.asnjournals.org/content//ASN.2 154414728 PROSTATE SPEC.AG,SCREENon PROSTATE SPEC.AG,SCREEN 4.00 ng/mL Normal 0.00 - 4.00 [facility] Comment on above: Result Comment: The FDA requires that the method used for PSA assay be reported to the physician. Values obtained with different assay methods must not be used interchangeably. This test was performed at [facility] using the [employer] PSA assay is a two-site immunoenzymatic sandwich assay. The assay is approved for measurement of prostate-specific antigen (PSA)in serum and may be used in conjunction with a digital rectal examination in men 50 years and older as an aid in detection of prostate cancer. 2-Jnhef-kituebzxy inhibitors (e.g. Proscar, Finasteride, Avodart, Dutasteride and Charlee) for the treatment of BPH have been shown to lower PSA levels by an average of 50% after 6 months of treatment. Performed By: #### P [facility] #### [id number] [place] [address] Prostate Spec.Ag, Screenon 0 11-08-2022 Prostate specific Ag [Mass/Vol] 4.00 ng/mL See Below JH-Ybpilqo-Mr [place] Work Phone: Comment on above: Reference Range: 0.0 0 - 4.00The FDA requires that the method used for PSA assay be reported to the physician. Values obtained with different assay methods must not be used interchangeably. This testwas performed at [facility] using the [employer] PSA assay is a two-site immunoenzymatic sandwich assay. The assay is approved for measurement of prostate-specific antigen (PSA)in serum and may be used in conjunction with a digital rectal examination in men 50 years and older as an aid in detection of prostate cancer.7-Qvisz-wqnrtndvh inhibitors (e.g. Proscar, Finasteride, Avodart, Dutasteride and [...] labs. This note was generated by using Entrustet software. It may contain errors in wording, [...] have advanced directives.. He did see his medical superintendent and has been diagnosed with alopecia areata [...] a) No falls within the last year [facility] and Work Phone: Tobacco use status CPHS b) No -[facility] and Work Phone: BASIC METABOLIC PANELon 12-2 Anion gap [Moles/Vol] 10 mmol/L Normal 10 - 20 [facility] Comment on above: Performed By: #### B MP #### [address] [address] Calcium [Mass/Vol] 9.1 mg/dL Normal 8.6 - 10.3 [facility] Comment on above: Performed By: #### B MP #### [address] [address] Chloride [Moles/Vol] 102 mmol/L Normal 98 - 107 [facility] Comment on above: Performed By: #### B MP #### [address] [address] Creatinine [Mass/Vol] 0.90 mg/dL Normal 0.50 - 1.30 [facility] Comment on above: Performed By: #### B MP #### [address] [address] eGFR MALE >90 Normal >90 [facility] Comment on above: Result Comment: CALC ULATIONS OF ESTIMATED GFR ARE PERFORMED USING THE 2020 CKD-EPI STUDY REFIT EQUATION WITHOUT THE RACE VARIABLE FOR THE IDMS-TRACEABLE CREATININE METHODS. https://jasn.asnjournals.org/content//ASN.139119958 8 Performed By: #### B MP #### [address] [address] Glucose [Mass/Vol] 101 mg/dL High 74 - 99 [facility] Comment on above: Performed By: #### B MP #### [address] [address] HCO3 (Bld) [Moles/Vol] 29 mmol/L Normal 21 - 32 [facility] Comment on above: Performed By: #### B MP #### [address] [address] Potassium [Moles/Vol] 4.3 mmol/L Normal 3.5 - 5.3 [facility] Comment on above: Performed By: #### B MP #### [address] [address] Sodium [Moles/Vol] 137 mmol/L Normal 136 - 145 [facility] Comment on above: Performed By: #### B MP #### [address] [address] Urea nitrogen [Mass/Vol] 18 mg/dL Normal 6 - 23 [facility] Comment on above: Performed By: #### B MP #### [address] [address] HEMOGLOBIN A1Con 05-10-2022 Glucose [Mass/Vol] 114 mg/dL Normal [facility] Comment on above: Performed By: #### H BA1E #### [address] [address] HbA1c (Bld) [Mass fraction] 5.6 % Normal [facility] Comment on above: Result Comment: Diag nosis of Diabetes-Adults Non-Diabetic: < or = 5.6% Increased risk for developing diabetes: 5.7-6.4% Diagnostic of diabetes: > or = 6.5% . Monitoring of Diabetes Age (y) Therapeutic Goal (%) Adults: >18 <7.0 Pediatrics: 13-18 <7.5 7-12 <8.0 0- 6 7.5-8.5 [place] [employer]. Diabetes Care 33(S1), May 2009. Performed By: #### H BA1E #### [address] [address] Hemoglobin A1Con 05-10-2022 Glucose [Mass/Vol] 114 mg/dL -[facility] and Work Phone: HbA1c (Bld) [Mass fraction] 5.6 % -[facility] and Work Phone: Comment on above: Diagnosis of Diabete s-Adults Non-Diabetic: < or = 5.6% Increased risk for developing diabetes: 5.7-6.4% Diagnostic of diabetes: > or = 6.5%. Monitoring of Diabetes Age (y) Therapeutic Goal (%) Adults: >18 <7.0 Pediatrics: 13-18 <7.5 7-12 <8.0 0- 6 7.5-8.5 [employer]. Diabetes Care 33(S1), May 2009. Laboratory - Chemistry and C hemistry - challengeon 05-10-2022 Anion gap [Moles/Vol] 10 mmol/L 10 - 20 [facility] Work Phone: Calcium [Mass/Vol] 9.1 mg/dL 8.6 - 10.3 [facility] and Work Phone: Chloride [Moles/Vol] 102 mmol/L 98 - 107 [facility] and Work Phone: CO2 [Moles/Vol] 29 mmol/L 21 - 32 [facility] and Work Phone: Creatinine [Mass/Vol] 0.90 mg/dL See Below [facility] and Work Phone: Comment on above: Reference Range: 0.5 0 - 1.30 Glucose [Mass/Vol] 101 mg/dL above high threshold 74 - 99 [facility] Work Phone: Potassium [Moles/Vol] 4.3 mmol/L 3.5 - 5.3 [facility] and Work Phone: Sodium [Moles/Vol] 137 mmol/L 136 - 145 [facility] and Work Phone: Urea nitrogen [Mass/Vol] 18 mg/dL 6 - 23 [facility] and Work Phone: No Panel Informationon 05-10 >90 >90 [facility] Work Phone: Comment on above: CALCULATIONS OF CHARLEY MATED GFR ARE PERFORMED USING THE 2020 CKD-EPI STUDY REFIT EQUATION WITHOUT THE RACE VARIABLE FOR THE IDMS-TRACEABLE CREATININE METHODS.https://jasn.asnjournals.org/content//ASN.2 863665494 Office Visit (Family Soren haji)on 11-11-2021 Follow-up [...] review. This note was generated by using Entrustet software. It may contain errors in wording, punctuate, or spelling. This note was generated by using Entrustet software. It may contain errors in wording, [...] score Multi-Vitamins TABSTAKE 1 TABLET DAILY.Health Maintenance [place] 3 CAPSTAKE DIRECTED.Health Maintenance Vitamin C TABSTAKE 1 TABLET DAILY.Health Maintenance Lisinopril 10 MG Oral TabletTAKE 1 TABLET BY MOUTH EVERY DAYHTN (hypertension) Atorvastatin Calcium 40 MG Oral TabletTAKE 1 TABLET BY MOUTH EVERY DAYHyperlipidemia LDL goal <100 Vitals Vital Signs Recorded: 11Nov2021 09:01AM Heart Rate68 Egxwtcsq147 Lnbpppbjc13 Height6 ft Dtxvqc900 lb 8 oz BMI Okdrlsswor73.55 BSA Calculated2.18 Tobacco Useb) No Falls Screening (Age 18+)a) No falls within the last year O2 Jxeislhvxv97 Results/Data Basic Metabolic [id number] 06:50AMSana Doyle Test NameResultFlagReference G (more content not included)... Normal [place] Tobacco Screening.on 022 Fall risk assessment a) No falls within the last year [facility] Work Phone: Tobacco use status [facility] b) No [facility] and Work Phone: Laboratory - Chemistry and C hemistry - challengeon 11-05-2021 Anion gap [Moles/Vol] 9 mmol/L below low threshold 10 - 20 [facility] Work Phone: Calcium [Mass/Vol] 9.2 mg/dL 8.6 - 10.3 [facility] and Work Phone: Chloride [Moles/Vol] 103 mmol/L 98 - 107 [facility] and Work Phone: CO2 [Moles/Vol] 29 mmol/L 21 - 32 [facility] and Work Phone: Creatinine [Mass/Vol] 0.88 mg/dL See Below [facility] and Work Phone: Comment on above: Reference Range: 0.5 0 - 1.30 Glucose [Mass/Vol] 108 mg/dL above high threshold 74 - 99 [facility] and Work Phone: Potassium [Moles/Vol] 4.4 mmol/L 3.5 - 5.3 [facility] and Work Phone: Sodium [Moles/Vol] 137 mmol/L 136 - 145 [facility] and Work Phone: Urea nitrogen [Mass/Vol] 17 mg/dL 6 - 23 [facility] and Work Phone: Lipid Panelon 11-05-2021 Cholesterol [Mass/Vol] 147 mg/dL 0 - 199 [facility] and Work Phone: Comment on above: [...] dosing. Cholesterol in HDL [Mass/Vol] 48.0 mg/dL [facility] and Work Phone: Comment on above: . AGE VERY LOW LOW N ORMAL HIGH 0-19 Y < 35 < 40 40-45 ---- 20- 24 Y ---- < 40 >45 ---- >24 Y ---- < 40 40-60 >60. Cholesterol in LDL [Mass/Vol] 82 mg/dL 0 - 99 [facility]: Comment on above: . NEAR BORD AGE MARIYA RABLE OPTIMAL HIGH HIGH VERY HIGH 0-19 Y 0 - 109 --- 110-129 >/= 130 ---- 20-24 Y 0 - 119 --- 120-159 >/= 160 ---- >24 Y 0 - 99 100-129 130-159 160-189 >/=190. Cholesterol.total/ Cholesterol in HDL [Mass ratio] 3.1 {ratio} [employer]aur[employer] [facility]Un[facility] Hospitals[facility] Work Phone: Comment on above: REF VALUESDESIRABLE < 3.4HIGH RISK > 5.0 Triglyceride [Mass/Vol] 83 mg/dL 0 - 149 [employer] TechnologiesLaurier FansUn[facility] HospitalsDrillster Phone: Comment on above: . AGE DESIRABLE [...] Lipid Panel 17 mg/dL 0 - 40 [employer] NetworksLaurier FansUn[facility] HospitalsAdu[facility] [employer] and Work Phone: No Panel Informationon 11-05 >90 >90 [facility]ENTER[facility]aur[facility] FansUn[facility] HospitalsDrillster Phone: Comment on above: CALCULATIONS OF CHARLEY MATED GFR ARE PERFORMED USING THE 2020 CKD-EPI STUDY REFIT EQUATION WITHOUT THE RACE VARIABLE FOR THE IDMS-TRACEABLE CREATININE METHODS.https://jasn.asnjournals.org/content//09/22/ASN.2 290898935 Prostate Specific Antigenon 11-05-2021 Prostate specific Ag [Mass/Vol] 1.92 ng/mL See Below [facility] and Work Phone: Comment on above: Reference Range: 0.0 0 - 4.00The FDA requires that the method used for PSA assay be reported to the physician. Values obtained with different assay methods must not be used interchangeably. This testwas performed at [facility] using the [employer] PSA assay is a two-site immunoenzymatic sandwich assay. The assay is approved for measurement of prostate-specific antigen (PSA)in serum and may be used in conjunction with a digital rectal examination in men 50 years and older as an aid in detection of prostate cancer.6-Tiyvj-bcrqklqjh inhibitors (e.g. Proscar, Finasteride, Avodart, Dutasteride and Charlee) for the treatment of BPH have been shown to lower PSA levels by an average of 50% after 6 months of treatment. Hemoglobin A1Con 05-09-2021 Glucose [Mass/Vol] 111 mg/dL [facility] and Work Phone: HbA1c (Bld) [Mass fraction] 5.5 % [facility] and Work Phone: Comment on above: Diagnosis of Diabete s-Adults Non-Diabetic: < or = 5.6% Increased risk for developing diabetes: 5.7-6.4% Diagnostic of diabetes: > or = 6.5%. Monitoring of Diabetes Age (y) Therapeutic Goal (%) Adults: >18 <7.0 Pediatrics: 13-18 <7.5 7-12 <8.0 0- 6 7.5-8.5 [employer]. Diabetes Care 33(S1), May 2009. Laboratory - Chemistry and C hemistry - challengeon 05-09-2021 Anion gap [Moles/Vol] 9 mmol/L below low threshold 10 - 20 [facility] and Work Phone: Calcium [Mass/Vol] 9.3 mg/dL 8.6 - 10.3 [facility] and Work Phone: Chloride [Moles/Vol] 101 mmol/L 98 - 107 [facility] and Work Phone: CO2 [Moles/Vol] 30 mmol/L 21 - 32 [facility] and Work Phone: Creatinine [Mass/Vol] 0.82 mg/dL See Below [facility] and Work Phone: Comment on above: Reference Range: 0.5 0 - 1.30 Glucose [Mass/Vol] 92 mg/dL 74 - 99 [facility] and Work Phone: Potassium [Moles/Vol] 3.9 mmol/L 3.5 - 5.3 [facility] and Work Phone: Sodium [Moles/Vol] 136 mmol/L 136 - 145 [facility] and Work Phone: Urea nitrogen [Mass/Vol] 19 mg/dL 6 - 23 [facility] and Work Phone: No Panel Informationon 05-09 >60 >60 [facility] and Work Phone: Comment on above: CALCULATIONS OF CHARLEY MATED GFR ARE PERFORMED USING THE MDRD STUDY EQUATION FOR THE IDMS-TRACEABLE CREATININE METHODS. CLIN CHEM 2007;53:766-72 Prostate Spec.Ag, Screenon 1 07-10-2020 Prostate specific Ag [Mass/Vol] 2.22 ng/mL See Below [facility] and Work Phone: Comment on above: Reference Range: 0.0 0 - 4.00The FDA requires that the method used for PSA assay be reported to the physician. Values obtained with different assay methods must not be used interchangeably. This testwas performed at [facility] using the Access Hybritech PSA assay is a two-site immunoenzymatic sandwich assay. The assay is approved for measurement of prostate-specific antigen (PSA)in serum and may be used in conjunction with a digital rectal examination in men 50 years and older as an aid in detection of prostate cancer.9-Gorrn-rgcyqfhvv inhibitors (e.g. Proscar, Finasteride, Avodart, Dutasteride and Charlee) for the treatment of BPH have been shown to lower PSA levels by an average of 50% after 6 months of treatment. Tobacco Screening.on 021 Fall risk assessment a) No falls within the last year [facility] and Work Phone: Tobacco use status CPHS b) No [facility] and Work Phone: ALT - Alanine Aminotransfera se, Serumon 11-10-2020 ALT With P-5'-P [Catalytic activity/Vol] 35 U/L 10 - 52 [facility] and Work Phone: Comment on above: Patients treated wit h Sulfasalazine may generate falsely decreased results for ALT. Hemoglobin A1Con 11-10-2020 Glucose [Mass/Vol] 105 mg/dL [facility] and Work Phone: HbA1c (Bld) [Mass fraction] 5.3 % [facility] and Work Phone: Comment on above: Diagnosis of Diabete s-Adults Non-Diabetic: < or = 5.6% Increased risk for developing diabetes: 5.7-6.4% Diagnostic of diabetes: > or = 6.5%. Monitoring of Diabetes Age (y) Therapeutic Goal (%) Adults: >18 <7.0 Pediatrics: 13-18 <7.5 7-12 <8.0 0- 6 7.5-8.5 [place] [employer]. Diabetes Care 33(S1), May 2009. Laboratory - Chemistry and C hemistry - challengeon 11-10-2020 Anion gap [Moles/Vol] 8 mmol/L below low threshold 10 - 20 [facility] and Work Phone: AST With P-5'-P [Catalytic activity/Vol] 30 U/L 9 - 39 [facility] and Work Phone: Calcium [Mass/Vol] 9.5 mg/dL 8.6 - 10.3 [facility] and Work Phone: Chloride [Moles/Vol] 104 mmol/L 98 - 107 [facility] and Work Phone: CO2 [Moles/Vol] 29 mmol/L 21 - 32 [facility] and Work Phone: Creatinine [Mass/Vol] 0.91 mg/dL See Below [facility] and Work Phone: Comment on above: Reference Range: 0.5 0 - 1.30 Glucose [Mass/Vol] 98 mg/dL 74 - 99 [facility] and Work Phone: Potassium [Moles/Vol] 4.3 mmol/L 3.5 - 5.3 [facility] and Work Phone: Sodium [Moles/Vol] 137 mmol/L 136 - 145 [facility] and Work Phone: Urea nitrogen [Mass/Vol] 19 mg/dL 6 - 23 [facility] and Work Phone: No Panel Informationon 11-10 >60 >60 [facility] and Work Phone: Comment on above: CALCULATIONS OF CHARLEY MATED GFR ARE PERFORMED USING THE MDRD STUDY EQUATION FOR THE IDMS-TRACEABLE CREATININE METHODS. CLIN CHEM 2007;53:766-72 CT Angio Coronary Arteries w ith Heart Flowon 12-22-2019 CT Angio Coronary Arteries with Heart Flow Interpreted by: ROCKY12/22/19 12:43MRN: [id number] Name: NANCIE PATEL STUDY:CTA CORONARY ART WITH HEARTFLOW IF SCORE [...] signed by: ROCKY 12/22/19 12:43 Normal -Cardiology [place] Work Phone: Metabolic Panelon 12-19-2019 Anion gap [Moles/Vol] 9 mmol/L below low threshold 10 - 20 -Cardiology [facility] [employer] Work Phone: Calcium [Mass/Vol] 9.6 mg/dL 8.6 - 10.3 -[address] Work Phone: Chloride [Moles/Vol] 104 mmol/L 98 - [address] Work Phone: CO2 [Moles/Vol] 29 mmol/L 21 - [address] Work Phone: Creatinine [Mass/Vol] 0.88 mg/dL See Below [address] Work Phone: Comment on above: Reference Range: 0.5 0 - 1.30 Glucose [Mass/Vol] 104 mg/dL above high threshold 74 - [address] Work Phone: Potassium [Moles/Vol] 4.3 mmol/L 3.5 - 5.[address] Work Phone: Sodium [Moles/Vol] 138 mmol/L 136 - [address] Work Phone: Urea nitrogen [Mass/Vol] 18 mg/dL 6 - [address] Work Phone: Otheron 12-19-2019 >60 >[address] Work Phone: Comment on above: CALCULATIONS OF CHARLEY MATED GFR ARE PERFORMED USING THE MDRD STUDY EQUATION FOR THE IDMS-TRACEABLE CREATININE METHODS. CLIN CHEM 2007;53:766-72 Otheron 11-21-2019 Interpreted by: DREW JAIN11/21/19 10:52MRN: [id number] Name: JORGE NANCIE STUDY:CARDIAC STRESS/REST INJECTION; CARDIAC STRESS/REST (MYOCARDIALPERFUSION/MIBI ); PART 2 STRESS OR REST (NO CHARGE); 11/21/2019 9:32 am INDICATION:CHEST PAIN Abnormal findings on diagnostic imaging of heart andcoronary circulation Other chest pain. COMPARISON:None. [id number]; [id number] ORDERING CLINICIAN:SANA DOYLE TECHNIQUE:DIVISION OF NUCLEAR [facility] MYOCARDIAL PERFUSION SCAN, ONE DAY PROTOCOL [...] function. Finding discussed with Dr. Doyle by radiology rn Dr. Guerrero at10:30 am.I personally reviewed the images/study and I agree with the findingsas stated. This study was interpreted at [facility], [place], [place].Electronically signed by: PETAR JAIN 11/21/19 10:52 Normal [facility] [employer] Work Phone: [phone] [address] [place], [place] [address]Phone [phone], [employer] Stress TestPatient Name: NANCIE PATEL Ordering Physician:Study Date: 11/21/2019 Reading Physician: [id number] Virginia Hidalgo MDMRN/PID: [id number] Supervising Physician:Accession/Order #: [id number] Referring Physician: [id number] Sana DoyleDate of : 1955 PCP:Gender: M Fellow:Admit Date: 11/21/2019 Fellow:Admission Status: Outpatient Resource Management Planner: Cecilio Gardnerm GAMING COMMISSIONER, CCTHeight: 182.88 cm Nurse: NAWeight: 94.80 kg Crystal Slicer: NABSA: 2.17 m2 Technologist:BMI: 28.35 kg/m2 Additional Staff:Age: 64 years cc report to:Patient Location: [facility] Stress Lab cc report to:Study Type: Syngo Nuclear OrderDiagnosis/ICD: R93.1-Abnormal findings on diagnostic imaging of heart andcoronary circulationIndication: ABN CACSProcedure/CPT: Stress Test Interpretation-[id number]; Stress Test Supervision-[id number] Risk: Low: Patient has low risk for [...] separately.8. The adequate level of stress was achieved.[id number] Virginia Hidalgo MDElectronically signed on 11/21/2019 at 9:46:40 AM Final [facility] Work Phone: Otheron 10-24-2019 [email or web address]?={[email or web address] [id number] [email or web address]} [facility] Work Phone: Otheron 10-22-2019 NOT DETECTED See Below [facility] Work Phone: Comment on above: [...] this test method. Fact sheet for providers: https://www.fda.gov/media/574485/downloadFact sheet for patients: https://www.fda.gov/media/249854/downloadThis test has been validated by the cognos administrator but FDAs independent review of this validation is pending. This test has been verified by [facility] ([facility]). This test is only authorized for the duration of time that circumstances exist to justify the authorization of the emergency use of in vitro diagnostic tests for the detection of SARS-CoV-2 virus and/or diagnosis of COVID-19 infection under section 564(b)(1) of the Act, 21 U.S.C. 360bbb-3(b)(1), unless the authorization is terminated or revoked sooner. [facility] is certified under CLIA-88 as qualified to perform high complexity testing. Testing is performed in the [facility] laboratories located at [address] [place] [address]. Lipid Profileon 05-15-2017 Cholesterol 299 mg/dL High 50-200 [facility] Comment on above: Result Comment: TOTCristhian Gao CHOLEESTEROL: <200 NORMAL 200 - 239 BORDERLINE HIGH >240 HIGH Performed By: #### 3 [id number] ####GIL [address] [place] [address] Cholesterol in VLDL mass conc 39 mg/dL Normal [facility] Comment on above: Performed By: #### 3 [id number] ####GIL [address] [place] [address] HDL Cholesterol 52 mg/dL Normal >=41 [facility] Comment on above: Performed By: #### 3 [id number] ####GIL [address] [place] [address] LDL Cholesterol 208 mg/dL High 0-130 [facility] Comment on above: Result Comment: <100 [id number] NEAR / ABOVE [id number] 159 BORDERLINE [id number] HIGH>190 VERY HIGHCALC LDL NOT VALID WHEN TRIGLYCERIDE IS >400 MG/DL Performed By: #### 3 [id number] ####GIL [id number] [place] [address] Triglyceride 194 mg/dL High 35-150 [facility] Comment on above: Result Comment: <150 [id number] BORDERLINE [id number] HIGH>500 VERY HIGH Performed By: #### 3 [id number] ####GIL [id number] [place] [address] PSA Screenon 05-15-2017 PSA 1.96 ng/mL Normal [facility] Comment on above: Result Comment: AGE- SPECIFIC REFERENCE RANGES FOR SERUM PSA REFERENCE RANGE NG/ML AGE ASIANS BLACKS WHITE 40-49 0-2 0-2 0-2.5 50-59 0-3 0-4 0-3.5 60-69 0-4 0-4.5 0-4.5 70-79 0-5 0-5.5 0-6.5 PSA INCREASES WITH AGE, RACE, AND EJACULATION WITHIN 48 HRS. [facility] VOL24,NO.2, , PG.339 Performed By: #### 1 [id number] ####GIL [id number] [place] [address] Vital Signs Date Time Vital Sign Value Performing Clinician Facility 01-12-2025 08:31-0400 Body temperature 97.8 [degF] Dr. Harvinder Mendoza DO Work Phone: [facility] 01-12-2025 08:31-0400 Body weight 99.[address] Harvinder Mendoza DO Work Phone: [facility] 01-12-2025 08:31-0400 Diastolic blood pressure 84 mm[Hg] Dr. Harvinder Mendoza DO Work Phone: [facility] 01-12-2025 08:31-0400 Heart rate 75 /min Dr. Harvinder Mendoza DO Work Phone: [facility] 01-12-2025 08:31-0400 Respiratory rate 16 /min Dr. Harvinder Mendoza DO Work Phone: [facility] 01-12-2025 08:31-0400 SaO2% (BldA) [Mass fraction] 100 % Dr. Harvinder Mendoza DO Work Phone: [facility] 01-12-2025 08:31-0400 Systolic blood pressure 146 mm[Hg] Dr. Harvinder Mendoza DO Work Phone: [facility] 12-29-2024 08:46-0400 Body height 185.[address] Harvinder Mendoza DO Work Phone: [facility] 12-29-2024 08:46-0400 Body weight 97.[address] Harvinder Mendoza DO Work Phone: [facility] 12-29-2024 08:44-0400 Body mass index (BMI) [Ratio] 28.3 kg/m2 Dr. Harvinder Mendoza DO Work Phone: [facility] 11-14-2024 07:12-0400 Body mass index (BMI) [Ratio] 28.74 kg/m2 Harvinder Reji DO Work Phone: [facility] 11-14-2024 07:12-0400 Body temperature 98.01 [degF] Harvinder Reji DO Work Phone: [facility] 11-14-2024 07:12-0400 Body weight 98.79 kg Harvinder Reji DO Work Phone: [facility] 11-14-2024 07:12-0400 Diastolic blood pressure 81 mm[Hg] Harvinder Reji DO Work Phone: [facility] 11-14-2024 07:12-0400 Heart rate 65 /min Harvinder Reji DO Work Phone: [facility] 11-14-2024 07:12-0400 Respiratory rate 18 /min Harvinder Reji DO Work Phone: [facility] 11-14-2024 07:12-0400 SaO2% (BldA) [Mass fraction] 96 % Harvinder Reji DO Work Phone: [facility] 11-14-2024 07:12-0400 Systolic blood pressure 133 mm[Hg] Harvinder Reji DO Work Phone: [facility] 09-28-2024 13:52-0400 Body temperature 97.5 [degF] Dr. Harvinder Mendoza DO Work Phone: [facility] 09-28-2024 13:52-0400 Body weight 100.[address] Harvinder Mendoza DO Work Phone: [facility] 09-28-2024 13:52-0400 Diastolic blood pressure 75 mm[Hg] Dr. Harvinder Mendoza DO Work Phone: [facility] 09-28-2024 13:52-0400 Heart rate 76 /min Dr. Harvinder Mendoza DO Work Phone: [facility] 09-28-2024 13:52-0400 Respiratory rate 16 /min Dr. Harvinder Mendoza DO Work Phone: [facility] 09-28-2024 13:52-0400 SaO2% (BldA) [Mass fraction] 97 % Dr. Harvinder Mendoza DO Work Phone: 2(825)413-168535 [address] 09-28-2024 13:52-0400 Systolic blood pressure 137 mm[Hg] Dr. Harvinder Mendoza DO Work Phone: 9(301)[phone] [address] 09-06-2024 11:34-0400 Body temperature 97.8 [degF] Dr. Harvinder Mendoza DO Work Phone: 5(229)244-721735 [address] 09-06-2024 11:34-0400 Body weight 99.[address] Harvinder Mendoza DO Work Phone: 0(890)[phone] [address] 09-06-2024 11:34-0400 Diastolic blood pressure 81 mm[Hg] Dr. Harvinder Mendoza DO Work Phone: [facility] 09-06-2024 11:34-0400 Heart rate 75 /min Dr. Harvinder Mendoza DO Work Phone: [facility] 09-06-2024 11:34-0400 Respiratory rate 16 /min Dr. Harvinder Mendoza DO Work Phone: [facility] 09-06-2024 11:34-0400 SaO2% (BldA) [Mass fraction] 98 % Dr. Harvinder Mendoza DO Work Phone: [facility] 09-06-2024 11:34-0400 Systolic blood pressure 145 mm[Hg] Dr. Harvinder Mendoza DO Work Phone: [facility] 08-26-2024 12:15-0400 Body height 185.4 cm Ollie Mejiata [employer]ER[employer] Work Phone: [facility] 08-26-2024 12:15-0400 Body mass index (BMI) [Ratio] 28.37 kg/m2 Ollie Alex [employer]ER Work Phone: [facility] 08-26-2024 12:15-0400 Body temperature 98.4 [degF] Ollie Mejiata [employer]ER Work Phone: [facility] 08-26-2024 12:15-0400 Body weight 97.52 kg Ollie Alex [employer]ER Work Phone: [facility] 08-26-2024 12:15-0400 Diastolic blood pressure 79 mm[Hg] Ollie Alex [employer]ER Work Phone: [facility] 08-26-2024 12:15-0400 Heart rate 89 /min Ollie Alex [employer] Work Phone: [facility] 08-26-2024 12:15-0400 Respiratory rate 18 /min Ollie Alex [employer] Work Phone: [facility] 08-26-2024 12:15-0400 SaO2% (BldA) [Mass fraction] 98 % Ollie Alex [employer] Work Phone: [facility] 08-26-2024 12:15-0400 Systolic blood pressure 156 mm[Hg] Ollie Alex [employer] Work Phone: [facility] 08-22-2024 14:26-0400 Diastolic blood pressure 79 mm[Hg] Harvinder Reji DO Work Phone: [facility] 08-22-2024 14:26-0400 Systolic blood pressure 125 mm[Hg] Harvinder Reji DO Work Phone: [facility] 08-22-2024 14:24-0400 Body height 185.4 cm Harvinder Reji DO Work Phone: [facility] 08-22-2024 14:24-0400 Body mass index (BMI) [Ratio] 29.03 kg/m2 Harvinder Reji DO Work Phone: [facility] 08-22-2024 14:24-0400 Body temperature 97.9 [degF] Harvinder Reji DO Work Phone: [facility] 08-22-2024 14:24-0400 Body weight 99.79 kg Harvinder Reji DO Work Phone: [facility] 08-22-2024 14:24-0400 Heart rate 72 /min Harvinder Reji DO Work Phone: [facility] 08-22-2024 14:24-0400 Respiratory rate 16 /min Harvinder Reji DO Work Phone: [facility] 08-22-2024 14:24-0400 SaO2% (BldA) [Mass fraction] 94 % Harvinder Reji DO Work Phone: [facility] 08-12-2024 10:02-0400 Body temperature 97.3 [degF] Dr. Harvinder Mendoza DO Work Phone: [facility] 08-12-2024 10:02-0400 Body weight 99.[address] Harvinder Mendoza DO Work Phone: [facility] 08-12-2024 10:02-0400 Diastolic blood pressure 82 mm[Hg] Dr. Harvinder Mendoza DO Work Phone: [facility] 08-12-2024 10:02-0400 Heart rate 72 /min Dr. Harvinder Mendoza DO Work Phone: [facility] 08-12-2024 10:02-0400 Respiratory rate 16 /min Dr. Harvinder Mendoza DO Work Phone: [facility] 08-12-2024 10:02-0400 SaO2% (BldA) [Mass fraction] 98 % Dr. Harvinder Mendoza DO Work Phone: [facility] 08-12-2024 10:02-0400 Systolic blood pressure 137 mm[Hg] Dr. Harvinder Mendoza DO Work Phone: [facility] 06-29-2024 13:16-0500 Body temperature 97.4 [degF] Dr. Harvinder Mendoza DO Work Phone: [facility] 06-29-2024 13:16-0500 Body weight 97.[address] Harvinder Mendoza DO Work Phone: [facility] 06-29-2024 13:16-0500 Diastolic blood pressure 88 mm[Hg] Dr. Harvinder Mendoza DO Work Phone: [facility] 06-29-2024 13:16-0500 Heart rate 76 /min Dr. Harvinder Mendoza DO Work Phone: [facility] 06-29-2024 13:16-0500 Respiratory rate 16 /min Dr. Harvinder Mendoza DO Work Phone: [facility] 06-29-2024 13:16-0500 SaO2% (BldA) [Mass fraction] 99 % Dr. Harvinder Mendoza DO Work Phone: [facility] 06-29-2024 13:16-0500 Systolic blood pressure 145 mm[Hg] Dr. Harvinder Mendoza DO Work Phone: [facility] 05-30-2024 08:02-0500 Diastolic blood pressure 84 mm[Hg] Harvinder Mendoza DO Work Phone: [facility] 05-30-2024 08:02-0500 Systolic blood pressure 134 mm[Hg] Harvinder Mendoza DO Work Phone: [facility] 05-30-2024 07:51-0500 Body height 185.4 cm Harvinder Mendoza DO Work Phone: [facility] 05-30-2024 07:51-0500 Body mass index (BMI) [Ratio] 28.09 kg/m2 Harvinder Mendoza DO Work Phone: [facility] 05-30-2024 07:51-0500 Body temperature 98.01 [degF] Harvinder Mendoza DO Work Phone: [facility] 05-30-2024 07:51-0500 Body weight 96.57 kg Harvinder Reji DO Work Phone: [facility] 05-30-2024 07:51-0500 Heart rate 70 /min Harvinder Reji DO Work Phone: [facility] 05-30-2024 07:51-0500 Respiratory rate 16 /min Harvinder Reji DO Work Phone: [facility] 05-30-2024 07:51-0500 SaO2% (BldA) [Mass fraction] 98 % Harvinder Reji DO Work Phone: [facility] 04-18-2024 15:06-0500 Body height 182.9 cm Sana [place] DO Work Phone: [facility] 04-18-2024 15:06-0500 Body mass index (BMI) [Ratio] 28.07 kg/m2 Sana [place] DO Work Phone: [facility] 04-18-2024 15:06-0500 Body weight 93.89 kg Sana [place] DO Work Phone: [facility] 04-18-2024 15:06-0500 Diastolic blood pressure 80 mm[Hg] Sana [place] DO Work Phone: [facility] 04-18-2024 15:06-0500 Heart rate 74 /min Sana [place] DO Work Phone: [facility] 04-18-2024 15:06-0500 SaO2% (BldA) [Mass fraction] 99 % Sana [place] DO Work Phone: [facility] 04-18-2024 15:06-0500 Systolic blood pressure 124 mm[Hg] Sana [place] DO Work Phone: [facility] 11-30-2023 12:59-0400 Body height 182.9 cm Sana [place] DO Work Phone: [facility] 11-30-2023 12:59-0400 Body mass index (BMI) [Ratio] 28.48 kg/m2 Sana [place] DO Work Phone: [facility] 11-30-2023 12:59-0400 Body weight 95.25 kg Sana [place] DO Work Phone: [facility] 11-30-2023 12:59-0400 Diastolic blood pressure 80 mm[Hg] Sana [place] DO Work Phone: [facility] 11-30-2023 12:59-0400 Heart rate 73 /min Sana [place] DO Work Phone: [facility] 11-30-2023 12:59-0400 SaO2% (BldA) [Mass fraction] 97 % Sana [place] DO Work Phone: [facility] 11-30-2023 12:59-0400 Systolic blood pressure 132 mm[Hg] Sana [place] DO Work Phone: [facility] 10-19-2023 07:03-0400 Body height 182.9 cm Sana [place] DO Work Phone: [facility] 10-19-2023 07:03-0400 Body mass index (BMI) [Ratio] 27.94 kg/m2 Sana [place] DO Work Phone: [facility] 10-19-2023 07:03-0400 Body weight 93.44 kg Sana [place] DO Work Phone: [facility] 10-19-2023 07:03-0400 Diastolic blood pressure 78 mm[Hg] Sana [place] DO Work Phone: [facility] 10-19-2023 07:03-0400 Heart rate 80 /min Sana [place] DO Work Phone: [facility] 10-19-2023 07:03-0400 SaO2% (BldA) [Mass fraction] 98 % Sana [place] DO Work Phone: 9(940)346-9[address] [place] [address] 10-19-2023 07:03-0400 Systolic blood pressure 130 mm[Hg] Sana [place] DO Work Phone: [facility] 09-14-2023 07:07-0400 Body mass index (BMI) [Ratio] 28.35 kg/m2 Sana [place] DO Work Phone: [facility] 09-14-2023 07:07-0400 Body weight 94.8 kg Sana [place] DO Work Phone: [facility] 09-14-2023 07:07-0400 Diastolic blood pressure 72 mm[Hg] Sana [place] DO Work Phone: [facility] 09-14-2023 07:07-0400 Heart rate 99 /min Sana [place] DO Work Phone: [facility] 09-14-2023 07:07-0400 SaO2% (BldA) [Mass fraction] 99 % Sana [place] DO Work Phone: [facility] 09-14-2023 07:07-0400 Systolic blood pressure 126 mm[Hg] Sana [place] DO Work Phone: [facility] 08-17-2023 11:32-0400 Body height 182.9 cm Sana [place] DO Work Phone: [facility] 08-17-2023 11:32-0400 Body mass index (BMI) [Ratio] 25.23 kg/m2 Sana [place] DO Work Phone: [facility] 08-17-2023 11:32-0400 Body weight 84.37 kg Sana [place] DO Work Phone: [facility] 08-17-2023 11:32-0400 Diastolic blood pressure 72 mm[Hg] Sana [place] DO Work Phone: [facility] 08-17-2023 11:32-0400 Heart rate 76 /min Sana [place] DO Work Phone: [facility] 08-17-2023 11:32-0400 SaO2% (BldA) [Mass fraction] 98 % Sana [place] DO Work Phone: [facility] 08-17-2023 11:32-0400 Systolic blood pressure 124 mm[Hg] Sana [place] DO Work Phone: [facility] 11-17-2022 08:02-0400 Body height 182.9 cm Sana [place] DO Work Phone: [facility] 11-17-2022 08:02-0400 Body mass index (BMI) [Ratio] 25.23 kg/m2 Sana [place] DO Work Phone: [facility] 11-17-2022 08:02-0400 Body weight 84.37 kg Sana [place] DO Work Phone: [facility] 11-17-2022 08:02-0400 Diastolic blood pressure 80 mm[Hg] Sana [place] DO Work Phone: [facility] 11-17-2022 08:02-0400 Heart rate 65 /min Sana [place] DO Work Phone: [facility] 11-17-2022 08:02-0400 SaO2% (BldA) [Mass fraction] 99 % Sana [place] DO Work Phone: [facility] 11-17-2022 08:02-0400 Systolic blood pressure 122 mm[Hg] Sana [place] DO Work Phone: [facility] 11-10-2022 07:44-0400 Body mass index (BMI) [Ratio] 25.82 kg/m2 Sana S [place] Work Phone: BT[facility]Jcxhbnz-Fxwbrka Work Phone: 11-10-2022 07:44-0400 Body surface area Derived from formula 2.09 m2 Sana S [place] Work Phone: IB-Kqgfmoe-Kwwppqj Work Phone: 11-10-2022 07:44-0400 Body weight 86.36 kg Sana S [place] Work Phone: GP-Zowoauc-Auufvzp Work Phone: 11-10-2022 07:44-0400 Diastolic blood pressure 82 mm[Hg] Sana S [place] Work Phone: JE-Hbkkoox-Hocgfdq Work Phone: 11-10-2022 07:44-0400 Heart rate 64 /min Sana S [place] Work Phone: NR-Xvcmrkv-Rvpwvde Work Phone: 11-10-2022 07:44-0400 Systolic blood pressure 144 mm[Hg] Sana S [place] Work Phone: OZ[facility]Uuzaebm-[facility]wa Work Phone: 05-13-2022 08:23-0500 Body height 182.88 cm Sana Hernández [place] Work Phone: [employer] Work Phone: 05-13-2022 08:23-0500 Body mass index (BMI) [Ratio] 29.35 kg/m2 Sana Hernández [place] Work Phone: [employer] Work Phone: 05-13-2022 08:23-0500 Body surface area Derived from formula 2.2 m2 Sana Hernández [place] Work Phone: [employer] Work Phone: 05-13-2022 08:23-0500 Body weight 98.15 kg Sana S [place] Work Phone: [employer] Work Phone: 05-13-2022 08:23-0500 Diastolic blood pressure 69 mm[Hg] Sana S [place] Work Phone: [employer] Work Phone: 05-13-2022 08:23-0500 Heart rate 60 /min Sana Doyle Work Phone: [facility] [employer] [facility] Work Phone: 05-13-2022 08:23-0500 SaO2% (BldA) [Mass fraction] 98 % Sana Doyle Work Phone: [facility] [employer] [facility] Work Phone: 05-13-2022 08:23-0500 Systolic blood pressure 125 mm[Hg] Sana Doyle Work Phone: [facility] Work Phone: 11-11-2021 09:01-0400 Body height 182.88 cm Sana Doyle Work Phone: [facility] [employer] [facility] Work Phone: 11-11-2021 09:01-0400 Body mass index (BMI) [Ratio] 28.55 kg/m2 Sana Doyle Work Phone: [facility] [employer] [facility] Work Phone: 11-11-2021 09:01-0400 Body surface area Derived from formula 2.18 m2 Sana Doyle Work Phone: [facility] [employer] [facility] Work Phone: 11-11-2021 09:01-0400 Body weight 95.48 kg Sana Doyle Work Phone: [facility] Work Phone: 11-11-2021 09:01-0400 Diastolic blood pressure 78 mm[Hg] Sana Hernández [place] Work Phone: [facility] Work Phone: 11-11-2021 09:01-0400 Heart rate 68 /min Sana Hernández [place] Work Phone: [facility] [employer] [facility] Work Phone: 11-11-2021 09:01-0400 SaO2% (BldA) [Mass fraction] 98 % Sana Doyle Work Phone: [facility] [employer] [facility] Work Phone: 11-11-2021 09:01-0400 Systolic blood pressure 138 mm[Hg] Sana Doyle Work Phone: [facility] Work Phone: 11-12-2020 08:43-0400 Body height 182.88 cm Sana Hernández [employer] Phone: [facility] Work Phone: 11-12-2020 08:43-0400 Body mass index (BMI) [Ratio] 28.91 kg/m2 Sana Doyle [employer] Phone: [facility] Work Phone: 11-12-2020 08:43-0400 Body surface area Derived from formula 2.19 m2 Sana Hernández [employer] Phone: [facility] Work Phone: 11-12-2020 08:43-0400 Body temperature 97.2 [degF] Sana Doyle [employer] Phone: [facility] Work Phone: 11-12-2020 08:43-0400 Body weight 96.68 kg Sana Doyle Work Phone: [facility] Work Phone: 11-12-2020 08:43-0400 Diastolic blood pressure 72 mm[Hg] Sana Doyle Work Phone: [facility] Work Phone: 11-12-2020 08:43-0400 Heart rate 76 /min Sana Doyle Work Phone: [facility] Work Phone: 11-12-2020 08:43-0400 SaO2% (BldA) [Mass fraction] 98 % Sana Doyle Work Phone: [facility] Work Phone: 11-12-2020 08:43-0400 Systolic blood pressure 136 mm[Hg] Sana Doyle Work Phone: [facility] Work Phone: 11-28-2019 11:19-0400 BMI (Body Mass Index) 28.6 kg/m2 [facility] [employer] Work Phone: 11-28-2019 11:19-0400 Body Temperature 97.7 [degF] [facility] [employer] Work Phone: 11-28-2019 11:19-0400 Body weight 95.66 kg [facility] [employer] Work Phone: 11-28-2019 11:19-0400 BP Diastolic 82 mm[Hg] [facility] [employer] Work Phone: Comment on above: Location: LUE; Position: Sitting 11-28-2019 11:19-0400 BP Systolic 142 mm[Hg] [facility] [employer] Work Phone: Comment on above: Location: LUE; Position: Sitting 11-28-2019 11:19-0400 BSA (Body Surface Area) 2.18 m2 [facility] [employer] Work Phone: 11-28-2019 11:19-0400 Height 182.88 cm [facility] [employer] Work Phone: 11-28-2019 11:19-0400 Pulse (Heart Rate) 75 /min [facility] [employer] Work Phone: 11-28-2019 11:19-0400 Pulse Oximetry 98 % [facility] [employer] Work Phone: 11-14-2019 10:04-0400 BMI (Body Mass Index) 28.41 kg/m2 Sana [facility] Work Phone: 11-14-2019 10:04-0400 Body Temperature 95.5 [degF] Sana [facility] Work Phone: Comment on above: Method: Temporal 11-14-2019 10:04-0400 Body weight 95 kg Sana Doyle -[facility] Work Phone: 11-14-2019 10:04-0400 BP Diastolic 78 mm[Hg] Sana [facility] Work Phone: Comment on above: Location: LUE; 11-14-2019 10:04-0400 BP Systolic 140 mm[Hg] [facility] Work Phone: Comment on above: Location: LUE; 11-14-2019 10:04-0400 BSA (Body Surface Area) 2.17 m2 Sana [facility] Work Phone: 11-14-2019 10:04-0400 Height 182.88 cm Sana [facility] Work Phone: 11-14-2019 10:04-0400 Pulse (Heart Rate) 79 /min Sana [facility] Work Phone: 11-14-2019 10:04-0400 Pulse Oximetry 97 % Sana [facility] Work Phone: Encounters Encounter Date Encounter Type Care Provider Facility Start: 03-16-2025 ambulatory [facility] Facility:[facility] Start: 01-12-2025 End: 01-12-2025 Patient encounter procedure Lizbeth ESTRELLA -[facility] Work Phone: Start: 01-12-2025 End: 01-12-[address] Harvinder Mendoza DO Work Phone: -[facility] Start: 01-02-2025 Non-patient / Non-visit Dr. Jose Alejandro bauman MD -[facility] Start: 01-02-2025 End: 01-02-[address] Harvinder Mendoza DO Work Phone: -[facility] Services Start: 01-02-2025 End: 01-02-2025 Patient encounter procedure Lizbeth ESTRELLA [facility] Work Phone: Start: 01-02-2025 End: 01-02-2025 ambulatory Harvinder Mendoza Facility:[facility] Start: 12-29-2024 ambulatory Jose Alejandro Soto Facility:[facility] Start: 12-29-2024 Non-patient / Non-visit Dr. Jose Alejandro bauman MD -[facility] Start: 12-29-2024 End: 12-29-2024 Admission to same day surgery center Dr. Jose Alejandro Soto MD -[facility] Procedures Work Phone: Start: 12-29-2024 End: 12-29-[address] Harvinder Mendoza DO Work Phone: -[facility]/Special Procedures Start: 11-28-2024 End: 11-28-2024 Orders Only Harvinder Mendoza DO Work Phone: [facility] Comment on above: Mixed hyperlipidemia (Primary Dx) Start: 11-17-2024 End: 01-17-2025 Follow-up encounter Harvinder Mendoza DO Work Phone: [facility] Comment on above: Comprehensive Metabo lic Panel, CBC and Differential, PSA, Screen, Additional followed-up results: 4 Start: 11-14-2024 End: 11-14-2024 Patient encounter procedure Harvinder Mendoza DO Work Phone: [facility] Comment on above: Medicare annual well ness visit, subsequent (Primary Dx); At low risk for fall; Mixed hyperlipidemia; Gastroesophageal reflux disease, unspecified whether esophagitis present; Primary hypertension Start: 11-14-2024 End: 11-14-2024 ambulatory HARVINDER MENDOZA [facility] Amb[facility] Start: 11-09-2024 Non-patient / Non-visit Dr. Jose Alejandro bauman MD -[facility] Start: 11-09-2024 End: 11-09-[address] Harvinder Mendoza DO Work Phone: -Cardiovascular Services Start: 11-09-2024 End: 11-09-2024 Patient encounter procedure Lizbeth ESTRELLA -[facility] Work Phone: Start: 11-09-2024 End: 11-09-2024 ambulatory Harvinder Mendoza Facility:[facility] Start: 09-28-2024 Non-patient / Non-visit Dr. Jose Alejandro bauman MD -[facility] Start: 09-28-2024 End: 09-28-[address] Harvinder Mendoza DO Work Phone: [facility] Work Phone: Start: 09-28-2024 End: 09-28-2024 Patient encounter procedure Lizbeth ESTRELLA [facility] Work Phone: Start: 09-28-2024 End: 09-28-2024 ambulatory Lizbeth Guevara Facility:[facility] Start: 09-06-2024 End: 09-06-2024 Patient encounter procedure Lizbeth ESTRELLA -[facility] Work Phone: Start: 09-06-2024 End: 09-06-2024 ambulatory [facility] Facility:[facility] Start: 08-26-2024 End: 08-26-2024 Patient encounter procedure Ollie Grant [employer] Work Phone: [facility] Comment on above: Acute bronchitis, un specified organism (Primary Dx) Start: 08-26-2024 End: 08-26-2024 ambulatory [facility] Start: 08-22-2024 End: 08-22-2024 Office outpatient visit 25 minutes Harvinder Mendoza DO Work Phone: [facility] Comment on above: Gastroesophageal ref lux disease, unspecified whether esophagitis present (Primary Dx); Subacute cough Start: 08-22-2024 End: 08-22-2024 ambulatory HARVINDER MENDOZA [facility] Ambulatory Start: 08-12-2024 Non-patient / Non-visit Dr. Jose Alejandro bauman MD -[facility] Start: 08-12-2024 End: 08-12-2024 Patient encounter procedure Lizbeth ESTRELLA [facility] Work Phone: Start: 08-12-2024 End: 08-12-[address] Harvinder Mendoza DO Work Phone: [facility] Work Phone: Start: 08-12-2024 End: 08-12-2024 ambulatory Lizbeth Guevara Facility:[facility] Start: 07-25-2024 Non-patient / Non-visit Dr. Jose Alejandro bauman MD -[facility] Start: 07-25-2024 End: 07-25-[address] Harvinder Mendoza DO Work Phone: [facility] Work Phone: Start: 07-25-2024 End: 07-25-2024 Patient encounter procedure Lizbeth ESTRELLA -[facility] Work Phone: Start: 07-25-2024 End: 07-25-2024 ambulatory Harvinder Mendoza Facility:[facility] Start: 06-29-2024 End: 06-29-2024 Patient encounter procedure Lizbeth Guevara [facility] Vascular Surgery Work Phone: Start: 06-29-2024 End: 06-29-2024 ambulatory Harvinder Mendoza Facility:[facility] Start: 06-09-2024 End: 06-09-2024 ambulatory HARVINDER MENDOZA [facility] Start: 05-30-2024 End: 05-30-2024 Office outpatient new 45 minutes Harvinder Mendoza DO Work Phone: [facility] Comment on above: Primary hypertension (Primary Dx); Mixed hyperlipidemia; Alopecia totalis; Overweight (BMI 25.0-29.9); Screening for metabolic disorder; Screening for prostate cancer; Abnormal finding of blood chemistry, unspecified; Vitamin B12 deficiency; Screening for AAA (abdominal aortic aneurysm) Start: 05-30-2024 End: 05-30-2024 ambulatory HARVINDER MENDOZA [facility] Amb[facility] Start: 04-18-2024 End: 04-18-2024 Office outpatient visit 15 minutes Sana S Meijob Work Phone: [facility] Comment on above: Statin myopathy (Ghada edy Dx); Elevated CPK; Screening for prostate cancer; Hyperlipidemia LDL goal <100 Start: 04-18-2024 End: 04-18-2024 ambulatory [facility] Ambulatory Start: 04-11-2024 End: 04-11-2024 ambulatory [facility] Start: 01-04-2024 End: 01-04-2024 ambulatory [facility] Start: 12-21-2023 End: 12-21-2023 ambulatory [facility] Start: 12-14-2023 End: 12-14-2023 ambulatory [facility] Start: 12-07-2023 End: 12-07-2023 ambulatory [facility] Start: 11-30-2023 End: 11-30-2023 Office outpatient visit 15 minutes [employer] Work Phone: [facility] Comment on above: Alcohol consumption heavy (Primary Dx); Elevated CPK Start: 11-30-2023 End: 11-30-2023 ambulatory [facility] Start: 11-30-2023 End: 11-30-2023 ambulatory [facility] Start: 11-23-2023 End: 11-23-2023 ambulatory [facility] Start: 11-18-2023 End: 11-18-2023 ambulatory [facility] Start: 11-16-2023 End: 11-16-2023 ambulatory [facility] Start: 11-09-2023 End: 11-09-2023 ambulatory ALESHIA M ELAINE [facility] Start: 11-02-2023 End: 11-02-2023 Office outpatient new 45 minutes Aleshia Elaine [employer] Work Phone: 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 Start: 11-02-2023 End: 11-02-2023 ambulatory ALESHIA M [facility] Ambulatory Start: 10-19-2023 End: 10-19-2023 Subsequent hospital visit by physician Marco Stauffery100 X-Ray [facility] Comment on above: Chronic pain of both shoulders Neck pain, chronic; Chronic pain of both shoulders Start: 10-19-2023 End: 10-19-2023 Office outpatient visit 15 minutes Sana S [place] DO Work Phone: [facility] [employer] Comment on above: Polyarthropathy (Ghada edy Dx); Neck pain, chronic; Chronic pain of both shoulders Start: 10-19-2023 End: 10-19-2023 ambulatory SANA S [facility] Start: 09-14-2023 End: 09-14-2023 Office outpatient visit 25 minutes Sana S [place] DO Work Phone: [facility] [employer] Comment on above: Polyarthropathy (Ghada edy Dx); Other fatigue; Gastroesophageal reflux disease without esophagitis; Gluten intolerance Start: 09-14-2023 End: 09-14-2023 ambulatory [address]NA S [facility] Start: 08-17-2023 End: 08-17-2023 Office outpatient visit 15 minutes Sana S [place] DO Work Phone: [facility] [employer] Comment on above: Medicare annual well ness visit, subsequent (Primary Dx); Hyperlipidemia LDL goal <100; Secondary hypertension; Hyperglycemia Start: 08-17-2023 End: 09-14-2023 Patient encounter procedure Sana S [place] DO Work Phone: [facility] Work Phone: Start: 08-17-2023 End: 08-17-2023 ambulatory [facility] Ambulatory Start: 08-17-2023 End: 08-17-2023 Encounter for general adult medical examination without abnormal findings [facility] Ambulatory Start: 08-14-2023 End: 08-14-2023 ambulatory [facility] Start: 11-17-2022 End: 11-17-2022 Office outpatient visit 25 minutes Sana Doyle DO Work Phone: [facility] Comment on above: Alopecia areata (Ghada edy Dx); Hyperglycemia; Secondary hypertension; Hyperlipidemia LDL goal <100 Start: 11-10-2022 Office outpatient ne w 45 minutes Sana Doyle Work Phone: [employer] Work Phone: Start: 11-10-[address] Jaspal Ramirez Cueto II Facility:[id number] Start: 05-13-[address] Sana Doyle Facility:[id number] Start: 05-13-2022 Chart Update Sana S Daniel al Work Phone: [facility] [employer] Work Phone: Start: 04-18-2022 Rx Renewal Sana Monroey al Work Phone: [facility] [employer] [facility] Work Phone: Start: 11-11-2021 Office outpatient vi sit 25 minutes Sana S [place] Work Phone: [facility] [employer] [facility] Work Phone: Start: 11-05-2021 Chart Update Sana S Daniel al Work Phone: [facility] [employer] [facility] Work Phone: Start: 10-21-2021 Rx Renewal Sana S Daniel al Work Phone: [facility] [employer] [facility] Work Phone: Start: 05-09-2021 Chart Update Sana S Daniel al Work Phone: [facility] Work Phone: Start: 11-12-2020 EPV, Provider: Sana Doyle, Status: Pen, Time: 8:40 AM Sana Doyle Work Phone: [facility] Work Phone: Start: 11-12-2020 Office outpatient vi sit 15 minutes Sana Doyle Work Phone: [facility] Work Phone: Start: 11-12-2020 Chart Update Sana orellana Work Phone: [facility] Work Phone: Start: 10-28-2020 Rx Renewal Sana Monroey reyna Work Phone: [facility] Work Phone: Start: 12-30-2019 Patient encounter procedure Avirup G [facility] [id number] [address] [place] Work Phone: Start: 12-22-2019 Patient encounter procedure Flaquitorup G [facility] [id number] [address] [place] Work Phone: Start: 11-28-2019 Patient encounter procedure Melvinap G [facility] Work Phone: Start: 11-21-2019 Patient encounter procedure Sana Doyle -[facility] Work Phone: Start: 11-14-2019 Patient encounter procedure Sana Doyle [facility] Work Phone: Start: 07-19-2019 Patient encounter procedure Sana Doyle -[facility] Work Phone: Start: 05-15-2017 End: 05-16-2017 Ambulatory Sana Doyle Facility:[facility] Start: 05-04-2017 End: 05-05-2017 Ambulatory Sana Doyle Facility:[facility] Patient encounter procedure Ubaldo Hernández [place] Work Phone: [facility] Work Phone: Patient encounter status Suzanne Hernández [place] Work Phone: [facility] Work Phone: Procedures Date Procedure Procedure Detail Performing Clinician Start: 04-11-2024 Lipid 1996 panel - S griselda or Plasma Sana [place] DO Work Phone: Start: 09-14-2023 JOSE WITHOUT [...] panel - S griselda or Plasma Sana [place] DO Work Phone: Start: 12-22-2019 Echocardiography Avirup Rocky Start: 12-09-2019 Echocardiography Avirup [place] Start: 11-28-2019 Basic metabolic 1998 panel - Serum or Plasma [facility]up [place] Start: 11-28-2019 Cta hrt cornry art/b ypass grfts contrst 3d post Avirup [place] Start: 11-28-2019 Sleep std airflow hr t rate&o2 sat effort unatt Avirup [place] Start: 11-17-2019 Syngo Nuclear Order Ynes berly [place] Start: 11-14-2019 NM Cardiac Stress/Re st Nuclear Med Order Sana [place] Start: 10-24-2019 End: 10-24-2019 Colonoscopy Sana [place] Colonoscopy Sana [place] Comment on above: 10/2019; Plan of Treatment Date Care Activity Detail Author Start: 10-23-2029 Screening for malign ant neoplasm of colon [facility] Start: 2029 Respiratory Syncytia l Virus Immunization: Risk, 60-74 Risk, or 75+ (1 - 1-dose 75+ series) Respiratory Syncytial Virus Immunization: Risk, 60-74 Risk, or 75+ (1 - 1-dose 75+ series) [facility] Start: 04-11-2029 Lipid panel Lipid Panel [facility] Start: 11-09-2027 Lipid panel Lipid Panel [facility] Start: 11-11-2026 Prostate specific antigen measurement PSA Level [facility] Start: 08-13-2026 Diabetes mellitus screening Diabetes Screening [facility] Start: 11-20-2025 End: 11-20-2025 Patient encounter procedure 11/20/2025 8:00 AM EDT Office Visit [facility] [address] [place] [address] Harvinder Mendoza DO [address] [place] [id number] [facility] Start: 11-14-2025 Fall risk assessment Falls Risk Asse ssment [facility] Start: 11-14-2025 Medicare Wellness Visit Medicare Wel lness Visit [facility] Start: 11-08-2025 Diabetes mellitus screening Diabetes Screening [facility] Start: 05-30-2025 Depression screening using PHQ-9 (Patient Health Questionnaire 9) score Depression Screening/Follow-Up (PHQ-2/9) [facility] Start: 02-20-2025 End: 02-20-2025 Patient encounter procedure 02/20/2025 7:20 AM EDT Office Visit [facility] [address] [place] [address] Harvinder Mendoza DO [address] [place] [id number] [facility] Start: 01-16-2025 Influenza vaccination Influenza Vacc ine (#1) [facility] Start: 12-29-2024 [facility] Start: 11-21-2024 End: 11-21-2024 Patient encounter procedure 11/21/2024 8:40 AM EDT Office Visit [facility] [address] [place] [address] Harvinder Mendoza DO [address] [address] [facility] Start: 09-05-2024 End: 09-05-2024 Patient encounter procedure 09/05/2024 9:00 AM EDT Office Visit [place] [address] [address] Sana Doyle DO [address] [address] [facility] Start: 08-31-2024 End: 04-18-2025 Creatine kinase [Enzymatic activity/volume] in Serum or Plasma CK Lab Routine Elevated CPK Expected: 08/31/2024 (Approximate), Expires: 04/18/2025 [facility] Work Phone: Comment on above: Expected: 08/31/2024 (Approximate), Expires: 04/18/2025 Start: 08-31-2024 End: 04-18-2025 Hepatic function 2000 panel - Serum or Plasma Hepatic Function Panel Lab Routine Hyperlipidemia LDL goal <100 Expected: 08/31/2024 (Approximate), Expires: 04/18/2025 [facility] Work Phone: Comment on above: Expected: 08/31/2024 (Approximate), Expires: 04/18/2025 Start: 08-31-2024 End: 04-18-2025 Lipid 1996 panel - Serum or Plasma Lipid Panel Lab Routine Hyperlipidemia LDL goal <100 Expected: 08/31/2024 (Approximate), Expires: 04/18/2025 [facility] Work Phone: Comment on above: Expected: 08/31/2024 (Approximate), Expires: 04/18/2025 Start: 08-31-2024 End: 04-18-2025 Prostate specific Ag [Mass/volume] in Serum or Plasma Prostate Spec.Ag,Screen Lab Routine Screening for prostate cancer Expected: 08/31/2024 (Approximate), Expires: 04/18/2025 [facility] Work Phone: Comment on above: Expected: 08/31/2024 (Approximate), Expires: 04/18/2025 Start: 08-28-2024 End: 05-30-2025 Cobalamin (Vitamin B12) [Mass/volume] in Serum or Plasma Vitamin B12 Lab Routine Vitamin B12 deficiency Expected: 08/28/2024 (Approximate), Expires: 05/30/2025 [facility] Comment on above: Expected: 08/28/2024 (Approximate), Expires: 05/30/2025 Start: 08-28-2024 End: 05-30-2025 Complete blood count with white cell differential, manual CBC and Differential Lab Routine Alopecia totalis Expected: 08/28/2024 (Approximate), Expires: 05/30/2025 [facility] Comment on above: Expected: 08/28/2024 (Approximate), Expires: 05/30/2025 Start: 08-28-2024 End: 05-30-2025 Comprehensive metabolic 2000 panel - Serum or Plasma Comprehensive Metabolic Panel Lab Routine Alopecia totalis Expected: 08/28/2024 (Approximate), Expires: 05/30/2025 [facility] Comment on above: Expected: 08/28/2024 (Approximate), Expires: 05/30/2025 Start: 08-28-2024 End: 05-30-2025 Hemoglobin A1c/Hemoglobin.total in Blood Hemoglobin A1c Lab Routine Overweight (BMI 25.0-29.9) Screening for metabolic disorder Abnormal finding of blood chemistry, unspecified Expected: 08/28/2024 (Approximate), Expires: 05/30/2025 [facility] Comment on above: Expected: 08/28/2024 (Approximate), Expires: 05/30/2025 Start: 08-28-2024 End: 05-30-2025 Prostate specific Ag [Mass/volume] in Serum or Plasma PSA, Screen Lab Routine Screening for prostate cancer Expected: 08/28/2024 (Approximate), Expires: 05/30/2025 [facility] Comment on above: Expected: 08/28/2024 (Approximate), Expires: 05/30/2025 Start: 08-28-2024 End: 05-30-2025 Thyrotropin [Units/volume] in Serum or Plasma TSH with Reflex Free T4 Lab Routine Alopecia totalis Screening for metabolic disorder Expected: 08/28/2024 (Approximate), Expires: 05/30/2025 [facility] Comment on above: Expected: 08/28/2024 (Approximate), Expires: 05/30/2025 Start: 08-17-2024 Medicare Annual Well ness Visit Medicare Annual Wellness Visit (AWV) [facility] Start: 06-09-2024 End: 06-09-2024 Patient encounter procedure 06/09/2024 8:00 AM EST Appointment [facility] [address] [place] [id number] Harvinder Mendoza, DO [address] [place] [address] [facility] Start: 02-29-2024 End: 02-29-2024 Patient encounter procedure [facility] [place] Start: 02-16-2024 End: 08-16-2024 Basic metabolic 2000 panel - Serum or Plasma Basic Metabolic Panel Lab Routine Secondary hypertension Expected: 02/16/2024 (Approximate), Expires: 08/16/2024 [facility] Service Area Work Phone: Comment on above: Expected: 02/16/2024 (Approximate), Expires: 08/16/2024 Start: 02-16-2024 End: 08-16-2024 Lipid 1996 panel - Serum or Plasma Lipid Panel Lab Routine Hyperlipidemia LDL goal <100 Expected: 02/16/2024 (Approximate), Expires: 08/16/2024 [facility] Work Phone: Comment on above: Expected: 02/16/2024 (Approximate), Expires: 08/16/2024 Start: 01-25-2024 End: 11-29-2024 Creatine kinase [Enzymatic activity/volume] in Serum or Plasma CK Lab Routine Elevated CPK Expected: 01/25/2024 (Approximate), Expires: 11/29/2024 [facility] Work Phone: Comment on above: Expected: 01/25/2024 (Approximate), Expires: 11/29/2024 Start: 01-17-2024 COVID-19 Vaccine ( season) COVID-19 Vaccine () [facility] Start: 01-17-2024 COVID-19 Vaccine ( season) COVID-19 Vaccine () [facility] Start: 01-17-2024 Influenza vaccination Influenza Vacc ine (#1) [facility] Start: 01-04-2024 End: 01-04-2024 ambulatory 01/04/2024 8:00 AM EDT Treatment [facility] [address] [place] [address] Mervin Betancourt, PT [address] [facility] [place] [phone] [facility] Start: 12-28-2023 End: 12-28-2023 ambulatory 12/28/2023 8:30 AM EDT Treatment [facility] [address] [place] [address] Lizbeth Vieira, DIRECTOR OF OPERATIONS [address] [facility] [place] [id number] [facility] Start: 12-21-2023 End: 12-21-2023 ambulatory 12/21/2023 8:30 AM EDT Treatment [facility] [address] [place] [address] Lizbeth Vieira, DIRECTOR OF OPERATIONS [address] [place] [address] [facility] Start: 12-14-2023 End: 12-14-2023 ambulatory 12/14/2023 7:00 AM EDT Treatment [facility] [address] [place] [address] Josef Collier, DIRECTOR OF OPERATIONS [address] [facility] [place] [address] [facility] Start: 12-07-2023 End: 12-07-2023 ambulatory 12/07/2023 7:45 AM EDT Treatment [facility] [address] [facility] [place] [address] Lizbeth Vieira, DIRECTOR OF OPERATIONS [address] [facility] [place] [address] [facility] Start: 11-30-2023 End: 11-29-2024 Cobalamin (Vitamin B12) [Mass/volume] in Serum or Plasma Vitamin B12 Lab Routine Elevated CPK Expected: 11/30/2023 (Approximate), Expires: 11/29/2024 [facility] Work Phone: Comment on above: Expected: 11/30/2023 (Approximate), Expires: 11/29/2024 Start: 11-30-2023 End: 11-29-2024 Phosphate [Mass/volume] in Serum or Plasma Phosphorus Lab Routine Elevated CPK Expected: 11/30/2023 (Approximate), Expires: 11/29/2024 [facility] Service Area Work Phone: Comment on above: Expected: 11/30/2023 (Approximate), Expires: 11/29/2024 Start: 11-30-2023 End: 11-30-2023 ambulatory 11/30/2023 1:40 PM EDT Lab [facility] [address] [place] [address] Arrived [facility] Comment on above: Arrived Start: 11-09-2023 End: 11-09-2023 ambulatory 11/09/2023 10:15 AM EDT Evaluation [facility] [address] [place] [address] Mervin Betancourt, PT [address] [facility] [place] [address] [facility] Start: 11-02-2023 End: 11-02-2023 Patient encounter procedure 11/02/2023 8:45 AM EDT Office Visit [facility] [address] [place] [address] Aleshia Elaine, [employer]ER [address] [facility] [place] [address] [facility] Start: 10-19-2023 End: 10-18-2024 Creatine kinase [Enzymatic activity/volume] in Serum or Plasma CK Lab Routine Polyarthropathy Expected: 10/19/2023 (Approximate), Expires: 10/18/2024 [facility] Service Area Work Phone: Comment on above: Expected: 10/19/2023 (Approximate), Expires: 10/18/2024 Start: 10-19-2023 End: 10-18-2024 XR Cervical spine 2 or 3 Views [facility] Work Phone: Comment on above: Expected: 10/19/2023 (Approximate), Expires: 10/18/2024 Once for 1 Occurrenc es starting 10/19/2023 until 10/19/2023 Start: 10-19-2023 End: 10-18-2024 XR Shoulder - left 2 Views [facility] Work Phone: Comment on above: Expected: 10/19/2023 (Approximate), Expires: 10/18/2024 Once for 1 Occurrenc es starting 10/19/2023 until 10/19/2023 Start: 10-19-2023 End: 10-18-2024 XR Shoulder - right 2 Views [facility] Work Phone: Comment on above: Expected: 10/19/2023 (Approximate), Expires: 10/18/2024 Once for 1 Occurrenc es starting 10/19/2023 until 10/19/2023 Start: 09-14-2023 End: 09-13-2024 Borrelia burgdorferi DNA [Presence] in Unspecified specimen by ANDRES with probe detection Lyme disease, PCR Lab Routine Polyarthropathy Expected: 09/14/2023 (Approximate), Expires: 09/13/2024 [facility] Work Phone: Comment on above: Expected: 09/14/2023 (Approximate), Expires: 09/13/2024 Start: 09-14-2023 End: 09-13-2024 C reactive protein [Mass/volume] in Serum or Plasma C-reactive protein Lab Routine Polyarthropathy Expected: 09/14/2023 (Approximate), Expires: 09/13/2024 [facility] Work Phone: Comment on above: Expected: 09/14/2023 (Approximate), Expires: 09/13/2024 Start: 09-14-2023 End: 09-13-2024 CBC W Auto Differential panel - Blood CBC and Auto Differential Lab Routine Polyarthropathy Other fatigue Expected: 09/14/2023 (Approximate), Expires: 09/13/2024 [facility] Work Phone: Comment on above: Expected: 09/14/2023 (Approximate), Expires: 09/13/2024 Start: 09-14-2023 End: 09-13-2024 Creatine kinase [Enzymatic activity/volume] in Serum or Plasma CK Lab Routine Polyarthropathy Expected: 09/14/2023 (Approximate), Expires: 09/13/2024 [facility] Work Phone: Comment on above: Expected: 09/14/2023 (Approximate), Expires: 09/13/2024 Start: 09-14-2023 End: 09-13-2024 Erythrocyte sedimentation rate Sedimentation Rate Lab Routine Polyarthropathy Expected: 09/14/2023 (Approximate), Expires: 09/13/2024 [facility] Service Area Work Phone: Comment on above: Expected: 09/14/2023 (Approximate), Expires: 09/13/2024 Start: 09-14-2023 End: 09-13-2024 Nuclear Ab [Presence] in Serum by Hep2 substrate JOSE Lab Routine Polyarthropathy Expected: 09/14/2023 (Approximate), Expires: 09/13/2024 [facility] Work Phone: Comment on above: Expected: 09/14/2023 (Approximate), Expires: 09/13/2024 Start: 09-14-2023 End: 09-13-2024 Rheumatoid factor [Units/volume] in Serum by Nephelometry Rheumatoid factor Lab Routine Polyarthropathy Expected: 09/14/2023 (Approximate), Expires: 09/13/2024 [facility] Work Phone: Comment on above: Expected: 09/14/2023 (Approximate), Expires: 09/13/2024 Start: 05-20-2023 End: 11-18-2023 Basic metabolic 2000 panel - Serum or Plasma Basic Metabolic Panel Lab Routine Hyperglycemia Expected: 05/20/2023 (Approximate), Expires: 11/18/2023 [facility] Service Area Work Phone: Comment on above: Expected: 05/20/2023 (Approximate), Expires: 11/18/2023 Start: 05-20-2023 End: 11-18-2023 Hemoglobin A1c/Hemoglobin.total in Blood Hemoglobin A1C Lab Routine Hyperglycemia Expected: 05/20/2023 (Approximate), Expires: 11/18/2023 [facility] Work Phone: Comment on above: Expected: 05/20/2023 (Approximate), Expires: 11/18/2023 Start: 05-14-2023 Medicare Annual Well ness Visit Medicare Annual Wellness Visit (AWV) [facility] Start: 01-16-2023 COVID-19 Vaccine ( season) COVID-19 Vaccine ( season) [facility] Start: 01-16-2023 Influenza vaccination Influenza Vacc ine (#1) [facility] Start: 11-17-2022 End: 11-18-2023 Thyrotropin [Units/volume] in Serum or Plasma TSH Lab Routine Alopecia areata Expected: 11/17/2022 (Approximate), Expires: 11/18/2023 [facility] Work Phone: Comment on above: Expected: 11/17/2022 (Approximate), Expires: 11/18/2023 Start: 11-17-2022 EPV, Provider: Sana Doyle, Status: Pen, Time: 8:00 AM EPV, Provider: Sana Doyle, Status: Pen, Time: 8:00 AM [facility] Work Phone: Start: 05-13-2022 EPV, Provider: Sana Doyle, Status: Pen, Time: 8:20 AM EPV, Provider: Sana Doyle, Status: Pen, Time: 8:20 AM [facility] Work Phone: Start: 11-11-2021 EPV, Provider: Sana Doyle, Status: Pen, Time: 9:00 AM EPV, Provider: Sana Doyle, Status: Pen, Time: 9:00 AM [facility] Work Phone: Start: 05-15-2021 Patient encounter procedure MCRANNUAL, Provider: Sana Doyle, Status: Pen, Time: 9:00 AM [facility] Work Phone: Start: 05-14-2021 Pneumococcal vaccination Pneum ococcal Vaccine (2 of 2 - PCV) [facility] Start: 05-14-2021 Pneumococcal Vaccine : 65+ Years (2 - PCV) Pneumococcal Vaccine: 65+ Years (2 - PCV) [facility] Start: 05-14-2021 Pneumococcal Vaccine : 65+ Years (2 of 2 - PCV) Pneumococcal Vaccine: 65+ Years (2 of 2 - PCV) [facility] Start: 05-14-2021 Pneumococcal Vaccine : Age 50+ (2 of 2 - PCV) Pneumococcal Vaccine: Age 50+ (2 of 2 - PCV) [facility] Start: 05-13-2021 Patient encounter procedure MCRANNUAL, Provider: Sana Doyle, Status: Pen, Time: 3:20 PM [facility] Work Phone: Start: 11-16-2020 DTaP/Tdap/Td Vaccine s (2 - Td or Tdap) DTaP/Tdap/Td Vaccines (2 - Td or Tdap) [facility] Start: 11-16-2020 Tetanus vaccination Tetanus: Every 1 0yrs [facility] Start: 11-12-2020 EPV, Provider: Sana Doyle, Status: Pen, Time: 8:40 AM EPV, Provider: Sana Doyle, Status: Pen, Time: 8:40 AM [facility] Work Phone: Start: 12-22-2019 Cta hrt cornry art/bypass grfts contrst 3d post CT Angio Coronary Arteries with Heart Flow [facility] Work Phone: Start: 12-22-2019 Echocardiography Echocardiogram [facility] Work Phone: Start: 11-28-2019 Sleep std airflow hr t rate&o2 sat effort unatt Home Sleep Apnea Test [facility] Work Phone: Start: 11-21-2019 Syngo Nuclear Order [facility] Work Phone: Start: 08-30-2019 Fall risk assessment Falls Risk Asse ssment [facility] Start: 2014 Hepatitis B Vaccines (1 of 3 - Risk 3-dose series) Hepatitis B Vaccines (1 of 3 - Risk 3-dose series) [facility] Start: 2014 Respiratory Syncytia l Virus Immunization: Risk, 60-74 Risk, or 75+ (1 - Risk 60-74 years 1-dose series) Respiratory Syncytial Virus Immunization: Risk, 60-74 Risk, or 75+ (1 - Risk 60-74 years 1-dose series) [facility] Start: 2014 RSV High Risk: (Elde rly (60+) or Population) (1 - Risk 60-74 years 1-dose series) RSV High Risk: (Elderly (60+) or Population) (1 - Risk 60-74 years 1-dose series) [facility] Start: 2014 RSV patient s and/or patients aged 60+ years (1 - 1-dose 60+ series) RSV patients and/or patients aged 60+ years (1 - 1-dose 60+ series) [facility] Start: 2004 Screening for malign ant neoplasm of colon Flexible sigmoidoscopy [facility] Start: 2004 Zoster Vaccines (1 of 2) Zoste r Vaccines (1 of 2) [facility] Start: 1972 Hepatitis C screening Hepatitis C Sc reening [facility] Start: 1957 Medicare Wellness Visit Medicare Wel lness Visit [facility] Start: 02-28-1955 COVID-19 Vaccine (#1) COVID-19 Vacci ne (#1) [facility] Start: 1954 Abdominal aortic aneurysm screening Abdominal Aortic Ultrasound [facility] Start: 1954 Medicare Annual Well ness Visit Medicare Annual Wellness Visit (AWV) [facility] Start: 1954 Prostate specific antigen measurement PSA Level [facility] Start: 1954 Screening for malign ant neoplasm of colon [facility] End: 11-28-2025 Comprehensive metabolic 2000 panel - Serum or Plasma Comprehensive Metabolic Panel Lab Routine Mixed hyperlipidemia 1 Occurrences starting 11/28/2024 until 11/28/2025 [facility] Work Phone: Comment on above: 1 Occurrences starti ng 11/28/2024 until 11/28/2025 End: 11-13-2025 Lipid 1996 panel - Serum or Plasma Lipid Panel Lab Routine Mixed hyperlipidemia 1 Occurrences starting 11/14/2024 until 11/13/2025 [facility] Work Phone: Comment on above: 1 Occurrences starti ng 11/14/2024 until 11/13/2025 End: 11-28-2025 Lipid 1996 panel - Serum or Plasma Lipid Panel Lab Routine Mixed hyperlipidemia 1 Occurrences starting 11/28/2024 until 11/28/2025 [facility] Comment on above: 1 Occurrences starti ng 11/28/2024 until 11/28/2025 End: 07-28-2025 Ultrasound abd aortic aneurysm screen Ultrasound abd aortic aneurysm screen Imaging Routine Screening for AAA (abdominal aortic aneurysm) 1 Occurrences starting 05/30/2024 until 07/28/2025 [facility] Work Phone: Comment on above: 1 Occurrences starti ng 05/30/2024 until 07/28/2025 US.doppler Lower extremity vein [facility] Work Phone: NEGATED: Highlighted row has been ruled out! Planned Goals not documented [facility] Work Phone: Immunizations Immunization Date Immunization Notes Care Provider Dipika [facility] 02-29-2024 influenza, high dose seasonal, preservative-free Harvinder Reji DO Work Phone: [facility] 02-29-2024 influenza virus vacc ine, unspecified formulation Harvinder Reji DO Work Phone: [facility] 02-16-2023 Flu vaccine, quadrivalent, high-dose, preservative free, age 65y+ (FLUZONE) Sana [place] DO Work Phone: [facility] Work Phone: 02-16-2023 influenza virus vacc ine, unspecified formulation Sana [place] DO Work Phone: [facility] Work Phone: 02-11-2022 Fluzone High-Dose Quadrivalent 0.7 ML Intramuscular Suspension Prefilled Syringe [employer] Work Phone: [facility] Work Phone: 02-11-2022 influenza virus vacc ine, unspecified formulation Sana [place] DO Work Phone: [facility] Work Phone: 11-03-2021 zoster vaccine recombinant Sana S [employer] Work Phone: [facility] Work Phone: 08-24-2021 zoster vaccine recombinant Sana S [employer] Work Phone: [facility] Work Phone: 04-21-2021 Pfizer-BioNTech COVI D-19 Vacc 30 MCG/0.3ML Intramuscular Suspension Sana Edgar [employer] Work Phone: [facility] Work Phone: 03-15-2021 influenza, seasonal, injectable Sana S [place] Work Phone: [facility] Work Phone: Comment on above: Series: 02-19-2021 Fluzone High-Dose Quadrivalent 0.7 ML Intramuscular Suspension Prefilled Syringe [employer] [place] Work Phone: [facility] Work Phone: 08-13-2020 Pfizer-BioNTech COVI D-19 Vacc 30 MCG/0.3ML [facility]amuscular Susp[facility] [employer] Phone: [facility] Work Phone: 07-23-2020 Pfizer-BioNTech COVI D-19 Vacc 30 MCG/0.3ML Intramuscular Suspension [facility] Work Phone: [facility] Work Phone: 05-14-2020 pneumococcal polysaccharide vaccine, 23 valent Sana [employer] Phone: [facility] Comment on above: Series: 03-15-2020 influenza, seasonal, injectable Sana S [place] Work Phone: [facility] Work Phone: Comment on above: Series: 02-15-2019 influenza virus vacc ine, unspecified formulation Sana S [place] Work Phone: [facility] Work Phone: Comment on above: Series: 02-15-2019 influenza, seasonal, injectable Sana [place] [facility] Work Phone: 02-15-2017 influenza virus vacc ine, unspecified formulation; Translations: [influenza virus vaccine, unspecified formulation] Sana Doyle [facility] Work Phone: Comment on above: Series: 12-12-2013 hepatitis A vaccine, adult dosage Sana [place] DO Work Phone: [facility] 12-12-2013 hepatitis A vaccine, unspecified formulation Sana Doyle [facility] Work Phone: Comment on above: Series: 06-14-2013 hepatitis A vaccine, adult dosage Sana [place] DO Work Phone: [facility] Work Phone: 06-14-2013 hepatitis A vaccine, unspecified formulation Sana Doyle [facility] Work Phone: Comment on above: Series: 11-16-2010 tetanus toxoid, redu tere diphtheria toxoid, and acellular pertussis vaccine, [facility] Comment on above: Series: Payers Date Payer Category Payer Self-pay 2019 Medicare [id number] 2019 Medicare supplementa l policy (as second payer) [id number] 2019 Private Health Insurance [employer] S UPPLEMENTAL AETNA SENIOR SUPPLEMENT [id number] 2019-Present [address] [place] [address] [id number] 2019 Medicare [id number] 2019 Private Health Insurance CLI [id number] 2017 Unknown 1954 Unknown [id number] 2.16.840.1.436610.3.57 9.2.356 1954 Unknown [id number] 2.16.840.1.463217.3.57 9.2.356 1954 Unknown [id number] 2.16.840.1.473326.3.57 9.2.1244 1954 Unknown [id number] 2.16.840.1.264165.3.57 9.2.1244 1954 Unknown [id number] 2.16.840.1.943495.3.57 9.2.124 1954 Unknown [id number] 2.16.840.1.780322.3.57 9.2.1244 1954 Unknown [id number] 2.16.840.1.162530.3.57 9.2.1244 1954 Unknown [id number] 2..840.1.054923.3.57 9.2.1244 1954 Unknown [id number] 2..840.1.160522.3.57 9.2.1243 1954 Unknown [id number] 2..840.1.988257.3.57 9.2.1243 1954 Unknown [id number] 2..840.1.060652.3.57 9.2.1243 1954 Unknown [id number] 2.840.1.986152.3.57 9.2.1243 1954 Unknown [id number] 2.16.840.1.694614.3.57 9.2.1243 1954 Unknown [id number] 2.16.840.1.832998.3.57 9.2.1243 1954 Unknown [id number] 2.16.840.1.338824.3.57 9.2.903 1954 Unknown [id number] 2.16.840.1.703156.3.57 9.2.124 1954 Unknown [id number] 2.16.840.1.660300.3.57 9.2.1243 1954 Unknown [id number] 2.16.840.1.549341.3.57 9.2.1242 1954 Unknown [id number] 2.16.840.1.197686.3.57 9.2.1242 1954 Unknown [id number] 2.16.840.1.082789.3.57 9.2.1242 1954 Unknown [id number] 2.16.840.1.151555.3.57 9.2.1242 1954 Unknown [id number] 2.16.840.1.303612.3.57 9.2.1242 1954 Unknown [id number] 2.16.840.1.252053.3.57 9.2.1242 1954 Unknown [id number] 2.16.840.1.213626.3.57 9.2.1242 1954 Unknown [id number] 2.16.840.1.940569.3.57 9.2.1242 1954 Unknown [id number] 2.16.840.1.386088.3.57 9.2.1242 1954 Unknown [id number] 2.16.840.1.444003.3.57 9.2.1242 1954 Unknown [id number] 2.16.840.1.508915.3.57 9.2.3 1954 Unknown [id number] 2.16.840.1.543305.3.57 9.2.903 1954 Unknown [id number] 2.16.840.1.528091.3.57 9.2.903 Unknown [id number] 2.16.840.1.772105.3.57 9.2.462 Unknown [id number] 2.16.840.1.554884.3.57 9.2.462 Unknown [id number] 2.16.840.1.299608.3.57 9.2.462 Unknown [id number] 2.16.840.1.543001.3.57 9.2.462 Unknown [id number] 2.16.840.1.829785.3.57 9.2.462 Unknown [id number] 2.16.840.1.932835.3.57 9.2.462 Unknown [id number] 2.16.840.1.301869.3.57 9.2.462 Unknown [id number] 2.16.840.1.879869.3.57 9.2.462 Unknown [id number] 2.16.840.1.318545.3.57 9.2.462 Unknown [id number] 2.16.840.1.175408.3.57 9.2.462 Unknown [id number] 2.16.840.1.580760.3.57 9.2.462 Unknown [id number] 2.16.840.1.981813.3.57 9.2.462 Unknown [id number] 2.16.840.1.451817.3.57 9.2.462 Unknown [id number] 2.16.840.1.498372.3.57 9.2.462 Unknown [id number] 2.16.840.1.543596.3.57 9.2.462 Unknown [id number] 2.16.840.1.334369.3.57 9.2.462 Unknown [id number] 2.16.840.1.460640.3.57 9.2.462 Unknown [id number] 2.16.840.1.308852.3.57 9.2.462 Social History Date Type Detail Facility Start: 11-17-2022 End: 05-30-2024 No advance directives No advance directives [facility] Work Phone: Start: 11-17-2022 Tobacco smoking status NHIS Never smoked tobacco [facility] Work Phone: Start: 11-17-2022 End: 05-30-2024 Tobacco use and exposure Smokeless tobacco non-user [facility] Work Phone: Start: 11-17-2022 End: 08-26-2024 Alcohol intake Ex-drinker (finding) [facility] Work Phone: Start: 11-17-2022 End: 05-30-2024 Tobacco use panel [facility] Work Phone: Start: 1955 [facility] Start: 11-07-2022 End: 08-26-2024 Exposure to SARS-CoV-2 (event) Not sure [facility] Start: 05-30-2024 End: 12-29-2024 Tobacco smoking status NHIS Ex-smoker [facility] Start: 05-18-1995 History of tobacco use Current smoker [facility] Start: 05-18-1995 History of tobacco use Cigarette Smoker [facility] Start: 06-03-2024 End: 11-14-2024 Alcoholic beverage intake Current drinker of alcohol (finding) [facility] Adult Depression Screening Assessment 0 [facility] Start: 05-30-2024 Alcohol Comment 2-3 beers/day on weekend days, 6-8 drinks/week [facility] Start: 05-26-2024 Gender identity Identifies as male gender (finding) [facility] Start: 05-26-2024 Sexual orientation Heterosexual (fin ding) [facility] Start: 08-04-2024 End: 08-18-2024 Sex Male (finding) [facility] Start: 1955 Sex Assigned At Male [facility] NEGATED: Highlighted row - - [facility] Work Phone: Functional Status Date Assessment Result Facility NEGATED: Highlighted row Functional performance Functional status health issues are not documented Disease [facility] Work Phone: Mental Status Date Assessment Result Facility NEGATED: Highlighted row Cognitive function [Interpretation] Cognitive status health issues are not documented Disease [facility] Work Phone: Clinical Notes 11-07-2022 to 12-29-2024 Note Date & Type Note Facility 12-29-2024 History and physi dl note Note Date/Time December 29, 2024 9:42am [facility] Medical Records Department [address] [place] [address] History & Physical Exam 12/29/24 0940 MR#: [id number] Acct: [id number] Name: NANCIE PATEL Rep #:[id number] : 1955 69 From: Jose Alejandro Soto MD PCP: Dr. Harvinder Mendoza, DO Status:REG SD C Location: [facility] HPI - General HPI Narrative NANCIE PATEL, is a 69 M who presents his venous insufficiency and SVT. Recall that he has slightly atypical appearance of bilateral lower leg venous stasis dermatitis; in appearance, consistent with stasis dermatitis, just an abnormal distribution with scattered focal areas of skin changes which is primarily medial ankles but also anterior and posterolateral. More recently, he has also had unprovoked RLE SVT despite excellent adherence to conservative caremeasures with measured compression stockings, leg elevation at times of rest, and increased exercise. He was initially diagnosed with thrombosed R calf varicose veins 08/15/24 and treated conservatively with ASA/NSAIDs/warm compresses/compression/elevation but he had progressive palpable cord into [...] study 07/25/24 which demonstrated bilateral SFJ, GSV, andASV incompetence. As above, he has very consistently been wearing his compression stockings. He has had some improvement in his stasis dermatitis with these efforts in additionto topical steroid as needed though symptoms do persist to some degree. Additionally, he has aching discomfort in his bilateral calves. He has seen improvement in SVT-related symptoms with Xarelto. He is tolerating Xarelto well without adverse bleeding. [facility] Medical History Hypertension Home Medications ?Medication ?Instructions ?Recorded ?Last Taken ?Type aspirin 81 mg tablet,delayed 81 mg PO QDAY 06/14/24 Un known History release (Adult Low Dose Aspirin) lisinopril 20 mg tablet 20 mg PO QDAY 06/14/24 Unkno wn History ascorbate calcium (vitamin C) 500 1 g PO QDAY 06/29/24 Unknown History mg capsule lisinopril 10 mg tablet 10 mg PO QDAY 06/29/24 Unkno wn History lutein 40 mg capsule 40 mg PO QDAY 06/29/24 Unkno wn History magnesium oxide 300 mg PO .wkly 06/29/24 Unk nown History zinc glycinate 20 mg capsule 20 mg PO .wkly 06/29/24 U nknown History rivaroxaban 20 mg tablet (Xarelto) 20 mg PO QDAY #30 t abs 09/06/24 Unknown Rx Allergy/AdvReac Type Severity Reaction Status Date / Time penicillin G Allergy Severe Rash Verified 09/28/24 13:54 Family History Other CVA (cerebral vascular accident) Hypertension Surgical History H/O basal cell carcinoma excision (~2024) Social History Smoking Status: Former smoker Tobacco: How many years used: 2 ROS Constitutional Constitutional: Denies chills, fever(s), frequent falls, lethargy or weakness Eyes Eyes: Denies blind spots, change in vision or loss of vision ENT HEENT: Denies bleeding gums, hoarseness or sore throat Cardiovascular Cardiovascular: Denies abdominal pain, bluish discoloration of hand/feet, chest pain with activity, claudication, cold extremities, cyanosis, dyspnea on exertion, erythema on extremities, irregular heart rhythm, leg edema, leg ulcers, numbness in extremities or weakness in extremities Respiratory/Chest Respiratory/Chest: Denies cough, excessive phlegm production, shortness of breath at rest, shortness of breath with exertion or wheezing Gastrointestinal Gastrointestinal: Denies anorexia, change in stool character, constipation, diarrhea, melena or rectal bleeding Genitourinary Genitourinary: Denies dysuria or hematuria Musculoskeletal Musculoskeletal: Denies abnormal gait Integumentary Integumentary: Reports other Details: ; Denies erythema, non-healing lesions or wounds Neurologic Neurologic: Denies abnormal speech, focal weakness, headache(s), loss of vision,numbness, paresthesias or sensory deficit Hematologic/Lymphatic Hematologic/Lymphatic: Denies easy bleeding, easy bruising or lymphadenopathy Vital Signs Vital Signs Vital Signs: Weight Weight: 215 lb Body Mass Index (BMI) 28.3 Physical Exam Const alert, oriented x3, no apparent distress and healthy appearing General Appearance: cooperative; Negative for combative or lethargic Orientation / Consciousness: awake Exam Limitations: no limitations HEENT Head and Scalp: normocephalic and atraumatic Eyes EOMs intact bilaterally General Eye: normal appearance of both eyes Neck full ROM General: trachea midline Resp normal respiratory effort and no use of accessory muscles Effort and Inspection: Negative for labored, stridor or audible wheezes Cardio regular rate and regular rhythm Back/Spine Cervical Spine: cervical ROM normal Extremity full ROM, normal capillary refill and no clubbing, cyanosis or edema Skin no rashes or lesions noted and no wounds Neuro oriented x3, CN's II-XII intact bilaterally, no focal motor deficits and no sensory deficits noted Psych thought process normal, cooperative, affect normal, speech normal and activity/motor behavior normal Assessment & Plan Assessment/Plan (1) Symptomatic varicose veins of both lower extremities: PLAN: -with pain and stasis dermatitis on left -SVT initiated in varicosities on right -plan left GSV ablation today; will pursue right ablation in future 12/29/24 0942 <Electronically signed by Jose Alejandro Soto MD> Cosigner Signature (if applicable): CC: Dr. Harvinder Mendoza DO; Dr. Jose Alejandro Soto MD~ Signed [facility] Work Phone: [phone]) 168-184508-14-2025 History and physical note [facility] Medical Records Department [address] [place] [address] History & Physical Exam 12/29/24 0940 MR#: [id number] Acct: [id number] Name: NANCIE PATEL Rep #:[id number] : 1955 69 From: Jose Alejandro Soto MD PCP: Dr. Harvinder Mendoza, DO Status:REG SD C Location: [facility] HPI - General HPI Narrative NANCIE PATEL, is a 69 M who presents his venous insufficiency and SVT. Recall that he has slightly atypical appearance of bilateral lower leg venous stasis dermatitis; inappearance, consistent with stasis dermatitis, just an abnormal distribution with scattered focal areas of skin changes which is primarily medial ankles but also anterior and posterolateral. More recently, he has also had unprovoked RLE SVT despite excellent adherence to conservative caremeasures with measured compression stockings, leg elevation at times of rest, and increased exercise. He was initially diagnosed with thrombosed R calf varicose veins 08/15/24 and treated conservatively with ASA/NSAIDs/warm compresses/compression/elevation but he had progressive palpable cord into his thigh and worsened discomfort so with suspicion of propagating SVT initiated on Xarelto 20mg daily. He has since had improvement in his symptoms with resolved erythema, focal edema. He had updated duplex prior to his appointment demonstrating R GSV SVT, consistent with prior suspicion of propagated SVT. He a lso had venous reflux study 07/25/24 which demonstrated bilateral SFJ, GSV, andASV incompetence. As above, he has very consistently been wearing his compression stockings. He has had some improvement in his stasis dermatitis with these efforts in additionto topical steroid as needed though symptoms do persist to some degree. Additionally, he has aching discomfort in his bilateral calves. He has seen improvement in SVT-related symptoms with Xarelto. He is tolerating Xarelto well without adverse bleeding. [facility] Medical History Hypertension Home Medications ?Medication ?Instructions ?Recorded ?Last Taken ?Type aspirin 81 mg tablet,delayed 81 mg PO QDAY 06/14/24 Un known History release (Adult Low Dose Aspirin) lisinopril 20 mg tablet 20 mg PO QDAY 06/14/24 Unkno wn History ascorbate calcium (vitamin C) 500 1 g PO QDAY 06/29/24 Unknown History mg capsule lisinopril 10 mg tablet 10 mg PO QDAY 06/29/24 Unkno wn History lutein 40 mg capsule 40 mg PO QDAY 06/29/24 Unkno wn History magnesium oxide 300 mg PO .wkly 06/29/24 Unk nown History zinc glycinate 20 mg capsule 20 mg PO .wkly 06/29/24 U nknown History rivaroxaban 20 mg tablet (Xarelto) 20 mg PO QDAY #30 t abs 09/06/24 Unknown Rx Allergy/AdvReac Type Severity Reaction Status Date / Time penicillin G Allergy Severe Rash Verified 09/28/24 13:54 Family History Other CVA (cerebral vascular accident) Hypertension Surgical History H/O basal cell carcinoma excision (~2024) Social History Smoking Status: Former smoker Tobacco: How many years used: 2 ROS Constitutional Constitutional: Denies chills, fever(s), frequent falls, lethargy or weakness Eyes Eyes: Denies blind spots, change in vision or loss of vision ENT HEENT: Denies bleeding gums, hoarseness or sore throat Cardiovascular Cardiovascular: Denies abdominal pain, bluish discoloration of hand/feet, chest pain with activity,claudication, cold extremities, cyanosis, dyspnea on exertion, erythema on extremities, irregular heart rhythm, leg edema, leg ulcers, numbness in extremities or weakness in extremities Respiratory/Chest Respiratory/Chest: Denies cough, excessive phlegm production, shortness of breath at rest, shortness of breath with exertion or wheezing Gastrointestinal Gastrointestinal: Denies anorexia, change in stool character, constipation, diarrhea, melena or rectal bleeding Genitourinary Genitourinary: Denies dysuria or hematuria Musculoskeletal Musculoskeletal: Denies abnormal gait Integumentary Integumentary: Reports other Details: ; Denies erythema, non-healing lesions or wounds Neurologic Neurologic: Denies abnormal speech, focal weakness, headache(s), loss of vision,numbness, paresthesias or sensory deficit Hematologic/Lymphatic Hematologic/Lymphatic: Denies easy bleeding, easy bruising or lymphadenopathy Vital Signs Vital Signs Vital Signs: Weight Weight: 215 lb Body Mass Index (BMI) 28.3 Physical Exam Const alert, oriented x3, no apparent distress and healthy appearing General Appearance: cooperative; Negative for combative or lethargic Orientation / Consciousness: awake Exam Limitations: no limitations HEENT Head and Scalp: normocephalic and atraumatic Eyes EOMs intact bilaterally General Eye: normal appearance of both eyes Neck full ROM General: trachea midline Resp normal respiratory effort and no use of accessory muscles Effort and Inspection: Negative for labored, stridor or audible wheezes Cardio regular rate and regular rhythm Back/Spine Cervical Spine: cervical ROM normal Extremity full ROM, normal capillary refill and no clubbing, cyanosis or edema Skin no rashes or lesions noted and no wounds Neuro oriented x3, CN's II-XII intact bilaterally, no focal motor deficits and no sensory deficits noted Psych thought process normal, cooperative, affect normal, speech normal and activity/motor behavior normal Assessment & Plan Assessment/Plan (1) Symptomatic varicose veins of both lower extremities: PLAN: -with pain and stasis dermatitis on left -SVT initiated in varicosities on right -plan left GSV ablation today; will pursue right ablation in future 12/29/24 0942 Cosigner Signature (if applicable): CC: Dr. Harvinder Mendoza DO; Dr. Jose Alejandro Soto MD~ Signed [facility]08-14-2025 [facility] Medical Records Department [address] [place] [address] History Physical Exam 12/29/24 0940 MR#: [id number] Acct: [id number] Name: NANCIE PATEL Rep #: [id number] : 1955 69 From: Jose Alejandro Soto MD PCP: Dr. Harvinder Mendoza DO Status:REG [facility] Location: [facility] HPI - General HPI Narrative NANCIE PATEL, is a 69 M who presents his venous insufficiency and SVT. Recall that he has slightly atypical appearance [...] veins 08/15/24 and treated conservatively with ASA/NSAIDs/warm compresses/compression/elevation but he had progressive palpable cord into [...] is tolerating Xarelto well without adverse bleeding. [facility] Medical History Hypertension Home Medications ???Medication ???Instructions ???Recorded ???Last Taken ???Type aspirin 81 mg tablet,delayed 81 mg PO QDAY 06/14/24 Unknown His tory release (Adult Low Dose Aspirin) lisinopril 20 mg tablet 20 mg PO QDAY 06/14/24 Unknown His tory ascorbate calcium (vitamin C) 500 1 g PO QDAY 06/29/24 Unknown Hist ory mg capsule lisinopril 10 mg tablet 10 mg PO QDAY 06/29/24 Unknown His tory lutein 40 mg capsule 40 mg PO QDAY 06/29/24 Unknown His tory magnesium oxide 300 mg PO .wkly 06/29/24 Unknown H istory zinc glycinate 20 mg capsule 20 mg PO .wkly 06/29/24 Unknown Hi story rivaroxaban 20 mg tablet (Xarelto) 20 mg PO QDAY #30 tabs 09/06/24 Unknown Rx Allergy/AdvReac Type Severity Reaction Status Date / Time penicillin G Allergy Severe Rash Verified 09/28/24 13:54 Family History Other CVA (cerebral vascular accident) Hypertension Surgical History H/O basal cell carcinoma excision ( 2024) Social History Smoking Status: Former smoker Tobacco: How many years used: 2 ROS Constitutional Constitutional: Denies chills, fever(s), frequent falls, lethargy or weakness Eyes Eyes: Denies blind spots, change in vision or loss of vision ENT HEENT: Denies bleeding gums, hoarseness or sore throat Cardiovascular Cardiovascular: Denies abdominal pain, bluish discoloration of hand/feet, chest pain with activity, claudication, cold extremities, cyanosis, dyspnea on exertion, erythema on extremities, irregular heart rhythm, leg edema, leg ulcers, numbness in extremities or weakness in extremities Respiratory/Chest Respiratory/Chest: Denies cough, excessive phlegm production, shortness of breath at rest, shortness of breath with exertion or wheezing Gastrointestinal Gastrointestinal: Denies anorexia, change in stool character, constipation, diarrhea, melena or rectal bleeding Genitourinary Genitourinary: Denies dysuria or hematuria Musculoskeletal Musculoskeletal: Denies abnormal gait Integumentary Integumentary: Reports other Details: ; Denies erythema, non-healing lesions or wounds Neurologic Neurologic: Denies abnormal speech, focal weakness, headache(s), loss of vision, numbness, paresthesias or sensory deficit Hematologic/Lymphatic Hematologic/Lymphatic: Denies easy bleeding, easy bruising or lymphadenopathy Vital Signs Vital Signs Vital Signs: Weight Weight: 215 lb Body Mass Index (BMI) 28.3 Physical Exam Const alert, oriented x3, no apparent distress and healthy appearing General Appearance: cooperative; Negative for combative or lethargic Orientation / Consciousness: awake Exam Limit (more content not included)...[facility]07-03-2025 NoteIf he agrees, I would send rosuvastatin 5 mg daily to his pharmacy. Please let me know what he decides. AUTHENTICATED BY HARVINDER MENDOZA, ON 11/17/2024 15:31:39[facility] 11-17-2024 History of Present illness Narrative* Harvinder Mendoza DO - 11/17/2024 3:31 PM EDT If he agrees, I would send rosuvastatin 5 mg daily to his pharmacy. Please let me know what he decides. documented in this [id number] Evaluation + Plan note* Assessment & Plan Note - Harvinder Mendoza DO - 11/14/2024 10:45 PM EDT Associated Problem(s): Mixed hyperlipidemia Hx statin myopathy with atorvastatin, and elevated CK. Taking red yeast rice and fish oil supplements. Check updated lipid panel. If not improving, consider rosuvastatin or pravastatin. [id number] Miscellaneous Notes* Assessment & Plan Note - Harvinder Mendoza DO - 11/14/2024 10:45 PM EDTAssociated Problem(s): Mixed hyperlipidemia Hx statin myopathy with atorvastatin, and elevated CK. Taking red yeast rice and fish oil supplements. Check updated lipid panel. If not improving, consider rosuvastatin or pravastatin. * Assessment & Plan Note - Harvinder Mendoza DO - 11/14/2024 10:37 PM EDT Associated Problem(s): Gastroesophageal reflux disease Symptoms well-controlled, now taking pantoprazole 20 mg daily as needed. Continue. * Assessment & Plan Note - Harvinder Mendoza DO - 11/14/2024 10:35 PM EDT Associated Problem(s): Hypertension BP goal <130/90. Well-controlled on lisinopril 20 mg daily. Continue. - Check renal function annually * Assessment & Plan Note - Harvinder Mendoza DO - 11/14/2024 10:34 PM EDT Associated Problem(s): Medicare annual wellness visit, subsequent Medicare wellness visit completed today. Mini cog score 2; patient was anxious about this test. Denies any concerns. Fall screening completed. Review of medical history completed. documented in this [id number] Evaluation + Plan note* Assessment & Plan Note - Harvinder Mendoza DO - 11/14/2024 10:37 PM EDT Associated Problem(s): Gastroesophageal reflux disease Symptoms well-controlled, now taking pantoprazole 20 mg daily as needed. Continue. [id number] Evaluation + Plan note* Assessment & Plan Note - Harvinder Mendoza DO - 11/14/2024 10:35 PM EDTAssociated Problem(s): Hypertension BP goal <130/90. Well-controlled on lisinopril 20 mg daily. Continue. - Check renal function annually [id number] Evaluation + Plan note* Assessment & Plan Note - Harvinder Mendoza DO - 11/14/2024 10:34 PM EDTAssociated Problem(s): Medicare annual wellness visit, subsequent Medicare wellness visit completed today. Mini cog score 2; patient was anxious about this test. Denies any concerns. Fall screening completed. Review of medical history completed. [id number] History of Present illness Narrative* Harvinder Mendoza DO - 11/14/2024 7:43 AM EDT Subjective: Nancie Patel is a 69 y.o. male here for a Medicare Annual Wellness Visit. Cough/GERD 3 months ago, started pantoprazole 20 mg with dinner for GERD. He reports taking it daily for abouta month, then decreasing to as needed. Symptoms are well- controlled. Cough has resolved. HLD He has history [...] (Vascular Surgery) Pharmacy / Equipment Co. (DME) [facility] - [place], [place] - [address] [facility] [address] Medicare Risk Assessment Do you have an Advanced Directive (Living Will and/or Durable Power of Body Specialist for Health Care)? If not, would you [...] on stairs and steps?: (!) Only handrails onthe stairs During the past four weeks, how [...] going to say three words that I wantyou to repeat back to me now and try to remember. The words are [select a list of words from the versions to the right]. Use a different list each time.: giovanna kowalski table, Version Used: Version 2: Giovanna Kowalski Table [...] of 2 - PCV) 05/14/2021 COVID-19 Vaccine ( - season) 2024 Depression Screening/Follow-Up (PHQ-2/9) 05/30/2025 [...] gap closure (health maintenance), medicare wellness visit andfall risk screening. Diagnoses and all orders for [...] related to chronic condition(s). documented in this [id number] Instructions* Patient Instructions* Harvinder Mendoza DO - 11/14/2024 7:38 AM [...] blankets, or other objects on the floor? A.group product manager things that are on the floor. Always keep objects off the floor. Q: Do you have to walk over or around wires or cords (like lamp, telephone, or extension cords)? A. Coil or tape cords and wires next to the wall so you can t trip over them. If needed, have an electricians top helper put in another outlet. STAIRS AND STEPS: Look at the stairs you use both inside and outside your home. Q: Are there papers, shoes, books, or other objects on the stairs? A. group product manager things on the stairs. Always keep objects off stairs. Q: Are some steps broken or uneven? A. Fix loose or uneven steps. Q: Are you missing a light over the stairway? A. Have an electricians top helper put in an overhead light at the top and bottom of the stairs. Q: Do you have only one light switch for your stairs (only at the top or at the bottom of the stairs)? A. Have an electricians top helper put in a light switch at the top and bottom of the stairs. You can get lightswitches that glow. Q: Has the stairway light [...] at all the medicines you take, even [id number] medicines.Some medicines can make you sleepy or dizzy. [...] lightweight curtains or shades to reduce glare. [place] a contrasting color on the top edge of all steps so you can see the stairs better. For example, use a light color paint on dark wood. To access this brochure online, please visit the CDC website at http://www.cdc.gov/steadi/pdf/check_for_safety_brochure-a.pdf Chair Rise Exercise What it does: Strengthens [...] of you, keeping your back & neck straight& and chest slightly forward. 3. Breathe in [...] instructions, please visit the CDC website at http://www.cdc.gov/steadi/pdf/chair_rise_exercise-a.pdf Stepping On is an evidence based program [...] vision, and medications. Classes are offered at [facility]. To find out specifics about a class, please call [phone]. [place] chi: Moving for Better Balance involves low impact exercise. The 12-week class is offered for three hours per week and is led by a trained architectural drafting instructor. It is intended for people aged [...] additional resources about fall prevention please contact: [facility] Violence and Injury Prevention Program at [phone] or [email or web address] [place] A Matter of Balance: Managing Concerns about Falls is an evidence based program designed to reduce the fear of falling and increase activity levels of older adults. A trained rn or lpn leads 8 two-hour sessions for small groups [...] at home. Classes are offered in all [address] [place] [address] in [place]. For more information about specific classes near you, please visit http://aging.[place].gov/steadyu/resources/matterofbalance.aspx. documented in this [id number] :This report has been cancelled.[facility]05-14-2025 Evaluation note* Diagnosis Onset Date Resolution Status Admit Date Acute superficial venous thrombosis of right lower extremity acute September 28, 2024 1 :25pm Stasis dermatitis of both legs acute September 28, 2024 1:25pm Symptomatic varicose veins o f both lower extremities acute September 28, 2024 1:25pm Venous insufficiency (chroni c) (peripheral) chronic September 28, 2024 1 :25pm Symptomatic varicose veins o f both lower extremities acute December 292024 8:29am [facility] Work Phone: 1(114) 296-291805-14-2025 Evaluation note* Diagnosis Onset Date Resolution Status Admit Date Acute superficial venous thrombosis of right lower extremity acute September 28, 2024 1 :25pm Stasis dermatitis of both legs acute September 28, 2024 1:25pm Symptomatic varicose veins o f both lower extremities acute September 28, 2024 1:25pm Venous insufficiency (chroni c) (peripheral) chronic September 28, 2024 1 :25pm Symptomatic varicose veins o f both lower extremities acute December 292024 8:29am Symptomatic varicose veins o f both lower extremities acute January 122024 8:22am Venous insufficiency (chroni c) (peripheral) chronic January 12 8:22am [facility] Work Phone: 1(628) 460-225104-22-2025 Evaluation note* Diagnosis Onset Date Resolution Status Admit Date Acute superficial venous thrombosis of right lower [...] (peripheral) chronic September 28, 2024 1 :25pm Symptomatic varicose veins o f both lower extremities acute December 292024 8:29am [facility] Work Phone: 1(199) 974-452004-11-2025 History of Present illness Narrative* ALAN Shepherd - 08/26/2024 12:00 PM EDT [facility] ALAN Shepherd Visit Note - 08/26/2024 12:56 PM This note was generated with voice recognition software and may contain errors including spelling, grammar, syntax, and misrecognization of what was dictated. Patient: Nancie Patel, , 68 y.o., male PCP: Harvinder Mendoza, DO ALLERGIES: Allergies Allergen Reactions Penicillins Unknown CURRENT [...] ZINC ORAL 1 tablet, 4 times weekly PAST MEDICAL HX: Patient Active Problem List [...] >30% 12/22/2019 CT HEART CORONARY ANGIOGRAM 12/22/2019 [facility] OTHER SURGICAL HISTORY 11/14/2019 Colonoscopy FAMILY HX: No pertinent history. SOCIAL HX: reports that he has never smoked. He has never used smokeless tobacco. . CHIEF COMPLAINT: Chief Complaint Patient presents with [...] without difficulty; denies loss of sense of tasteor smell. Reports symptoms initially seemed to be improving, but then seemed to get a lot worse again ~5 days ago . Has been taking Robitussin DM, Nyquil, and other OTC medications without much relief; no other gbqz-biu-jrrsjmf medications or home remedies for symptom management. [...] + mild audible nasal congestion. Airway patent, TMsand ear canals clear/unremarkable bilaterally. Nasal mucosa mildly injected and edematous. Oral mucosa moist. Posterior pharynx mildly injected but without lesions or oropharyngeal exudate. Uvula is midline. Managing oral secretions without difficulty. Neck: Supple. Mildly tender, mobile anterior cervical lymphadenopathy bilat. Trachea is midline. Respiratory: Respirations easy and unlabored, Breath sounds equal. Lungs are clear to auscultation;no wheezes, rhonchi, or rales; has good air movement throughout. + harsh, semi-productive cough noted. Non-dyspneic with ambulation; able to maintain SpO2. Cardiovascular: Normal rate, Regular rhythm. Normal S1S2. No m/r/g. No peripheral edema - wearing compression stockings. Gastrointestinal: Soft, non-tender, non-distended. Bowel sounds normoactive. Musculoskeletal: Grossly normal; appropriate for age. Integumentary: [place], warm, dry, and intact. No rashes or skin discoloration appreciated. Good skin turgor. Neurologic: Alert and oriented, no gross deficits. Cognition and Speech: Oriented, Speech clear and coherent. Psychiatric: Cooperative, Appropriate mood & affect. Medical Decision Making LABORATORY or RADIOLOGICAL IMAGING [...] consistent with acute bronchitis, but reviewed other potentialetiologies. Due to severity and duration of symptoms, will begin treatment with Zithromax and prednisone taper today; will also start cough medication (Benzonatate) and albuterol inhaler for PRN use.Instructed to push fluids, rest, and to use appropriate over the counter medications as needed for management of symptoms - plain Mucinex may be helpful. Reviewed instructions for self-isolation and continued monitoring. Reviewed red flags to monitor for, counseled on potential adverse reactions oftreatments, expectations for improvement in sxs, and advised to follow-up with primary care provider in 2-3 days if symptoms persist, or to seek care sooner if worsening or if any additional concerns/red flags develop. Patient agreed with plan of care; questions were encouraged and answered. ALAN Shephred Advanced Practice Provider [facility] Work Phone: [phone]) [phone] Instructions* Patient Instructions* ALAN Shepherd - 08/26/2024 12:00 PM EDT - Start Zpak and Prednisone - take these with food. - Use albuterol inhaler and benzonatate as needed. - Start aloc-yhy-okyelap plain Mucinex (guaifenesin) to help loosen/thin phlegm. Increase fluids, rest, and follow up with your doctor if symptoms persist or worsen. documented in [facility] Work Phone: 1([phone]) 320-155004-07-2025 Evaluation + Plan note* Assessment & Plan Note - Harvinder Mendoza DO - 08/22/2024 3:30 PM EDTAssociated Problem(s): Cough Cough for 3 weeks following viral infection. also currently sick with respiratory illness. DDx: Postnasal drip, postviral syndrome, GERD - Begin nightly Flonase or Nasacort - Begin nightly pantoprazole 20 mg with dinner - Monitor symptoms - Follow-up as needed [id number] Miscellaneous Notes* Assessment & Plan Note - Harvinder Mendoza DO - 08/22/2024 3:30 PM EDTAssociated Problem(s): Cough Cough for 3 weeks following viral infection. also currently sick with respiratory illness. DDx: Postnasal drip, postviral syndrome, GERD - Begin nightly Flonase or Nasacort - Begin nightly pantoprazole 20 mg with dinner - Monitor symptoms - Follow-up as needed * Assessment & Plan Note - Harvinder Mendoza DO - 08/22/2024 3:29 PM EDT Associated Problem(s): Gastroesophageal reflux disease Start daily pantoprazole 20 mg. May take second 20 mg dose if needed. Recommended to take prior to dinner due to symptoms occurring during the night. - Follow-up as needed documented in this [id number] Evaluation + Plan note* Assessment & Plan Note - Harvinder Mendoza DO - 08/22/2024 3:29 PM EDT Associated Problem(s): Gastroesophageal reflux disease Start daily pantoprazole 20 mg. May take second 20 mg dose if needed. Recommended to take prior to dinner due to symptoms occurring during the night. - Follow-up as needed [id number] Instructions* Patient Instructions* Harvinder Mendoza DO - 08/22/2024 2:43 PM EDT You can try Flonase (fluticasone) nasal spray or Nasacort (triamcinolone). documented in this [id number] NoteAssessment/Plan: Gastroesophageal reflux disease Start daily pantoprazole 20 [...] condition(s). Harvinder Mendoza DO AUTHENTICATED BY HARVINDER MENDOZA ON 08/22/2024 15:31:16[facility] 08-22-2024 History of Present illness Narrative* Harvinder Mendoza DO - 08/22/2024 2:40 PM EDT Assessment/Plan: Gastroesophageal reflux disease Start daily pantoprazole [...] condition(s). Harvinder Mendoza DO documented in this [id number] Evaluation note* Diagnosis Onset Date Resolution Status Admit Date Acute superficial venous thrombosis of right lower [...] (peripheral) chronic September 28, 2024 1 :25pm [facility] Work Phone: [phone]) [phone] Evaluation note* Diagnosis Onset Date Resolution Status Admit Date Symptomatic varicose veins o f both lower extremities acute June 29, 2024 1:05pm Venous insufficiency (chroni c) (peripheral) chronic June 29 025 1:05pm [facility] Work Phone: [phone]) 675-138002-12-2025 Evaluation note* Diagnosis Onset Date Resolution Status Admit Date Symptomatic varicose veins o f both lower extremities acute June 29, 2024 1:05pm Venous insufficiency (chroni c) (peripheral) chronic June 29 025 1:05pm Acute superficial venous thrombosis of right lower extremity acute August 12, 2024 9:54am Venous insufficiency (chroni c) (peripheral) chronic August 12, 2024 9:54am [facility] Work Phone: [phone]) 321-569602-12-2025 Evaluation note* Diagnosis Onset Date Resolution Status [...] c) (peripheral) chronic September 06, 2024 11:15am [facility] Work Phone: [phone] 484-676202-12-2025 Evaluation note* Diagnosis Onset Date Resolution Status [...] (peripheral) chronic September 28, 2024 1 :25pm [facility] Work Phone: [phone]) [phone] Evaluation + Plan note* Assessment & Plan Note - Harvinder Mendoza DO - 06/03/2024 10:16 PM ESTAssociated Problem(s): Screening for AAA (abdominal aortic aneurysm) 68 yo former smoker. Screen for AAA with US, ordered today. [id number] Miscellaneous Notes* Assessment & Plan Note - [...] statin; rosuvastatin or pravastatin. documented in this [id number] Evaluation + Plan note* Assessment & Plan Note - Harvinder Mendoza DO - 06/03/2024 10:14 PM EST Associated Problem(s): Overweight (BMI 25.0-29.9) BMI 28.1. Discussed healthy lifestyle including well-balanced diet, reducing portions and sugar. Begin routine exercise, goal 150 min cardiovascular exercise weekly. - Check CBC, CMP, TSH, A1c - Monitor for improvement [id number] Evaluation + Plan note* Assessment & Plan Note - Harvinder Mendoza DO - 06/03/2024 10:12 PM ESTAssociated Problem(s): Vitamin B12 deficiency Hx of low normal B12. On vitamin B12 supplement 1000 mg daily. - Check updated serum B12, may discontinue supplement if appropriate [id number] Evaluation + Plan note* Assessment & Plan Note - Harvinder Mendoza DO - 06/03/2024 10:10 PM ESTAssociated Problem(s): Hypertension BP goal <130/90. Well-controlled on lisinopril 20 mg daily. Continue. - Check updated CMP, CBC, TSH - Follow up in 6 months [id number] Evaluation + Plan note* Assessment & Plan [...] improving, consider hydrophilic statin; rosuvastatin or pravastatin. [id number] Instructions* Patient Instructions* Harvinder Mendoza DO - 05/30/2024 8:48 AM EST Your exercise goal is 150 minutes weekly (30 min/day, 5 days/week) of cardiovascular exercise. I recommend updating your tetanus booster at your pharmacy. * Attachments The following attachments cannot be sent through Care Everywhere. * [employer]: General Info (Telugu) documented in this [id number] History of Present illness Narrative* aHrvinder Mendoza DO - 05/30/2024 8:00 AM EST [...] y.o. male Chief Complaint Patient presents with [facility] Care Wants Blood work done Presenting to [...] PHQ-9 Total Score 0 documented in this [id number] NoteAssessment/Plan: Mixed hyperlipidemia Last lipid panel 03/2024 [...] , or of h (more content not included)...[facility]12-02-2024 Evaluation + Plan note* Assessment & Plan Note - Sana Doyle DO - 04/18/2024 3:33 PM ESTAssociated Problem(s): Hyperlipidemia LDL goal <100 -He clearly has a statin intolerance -We will try Zetia 10 mg daily and we will see him back in approximately 4 months for reevaluation -He is also reminded to watch his diet closely and to refrain from alcohol consumption [facility] Work Phone: 1(673) 400-582912-02-2024 Miscellaneous Notes* Assessment & Plan Note - Sana DoyleDO - 04/18/2024 3:33 PM ESTAssociated Problem(s): Hyperlipidemia LDL goal <100 -He clearly has a statin intolerance -We will try Zetia 10 mg daily and we will see him back in approximately 4 months for reevaluation -He is also reminded to watch his diet closely and to refrain from alcohol consumption documented in this encounterW[facility] Work Phone: 1(145) 954-822412-02-2024 History of Present illness Narrative* Sana Hernández DO Vivek - 04/18/2024 3:00 PM EST Subjective Patient ID: Nancie Patel is a 68 y.o. male who presents for Follow-up (6 mo follow, lab results). HPI He is here today for follow-up. He reports feeling relatively well. He will be embarking on senior care after the first of the year and [...] well as exercise regularly. With your upcoming senior care I am hoping that you will carve out time every day for your wellness and fitness. We will see you back in 4 months and just prior to that visit you will go for fasting lab work Sana Doyle DO documented in this encounterW[facility] Work Phone: 1(321) 493-160912-02-2024 Instructions* Patient Instructions* Sana Doyle DO - [...] well as exercise regularly. With your upcoming senior care I am hoping that you will carve out time every day for your wellness and fitness. We will see you back in 4 months and just prior to that visit you will go for fasting lab work documented in this encounterW[facility] Work Phone: [phone]) 999-481607-15-2024 Evaluation + Plan note* Assessment & Plan Note - Sana Doyle DO - 11/30/2023 1:30 PM EDTAssociated Problem(s): Elevated CPK -We decided to repeat his CPK in 8 weeks from now and I will be calling him. [facility] Work Phone: [phone] 538-931407-15-2024 Evaluation + Plan note* Assessment & Plan [...] would be one of the best options [facility] Work Phone: [phone]) 205-635307-15-2024 Miscellaneous Notes* Assessment & Plan Note - [...] PM Modules accepted: Orders documented in this [facility] Work Phone: [phone]) [phone] History of Present illness Narrative* Sana Doyle, DO - 11/30/2023 1:00 PM EDT Subjective [...] doing so. He states he is facing senior care in about 6 monthsfrom now and he is just feeling a little bit lost about what is going to do after senior care. We talked about looking into different ways [...] CK Sana Doyle DO documented in this encounterW[facility] Work Phone: 1([phone]) 111-748207-15-2024 Instructions* Patient Instructions* Sana Doyle DO - [...] looking future for you. documented in this encounterW[facility] Work Phone: [phone] 532-722807-15-2024 Note* Addendum Note - Sana Doyle DO - 11/30/2023 1:00 PM EDTAddended by: SANA DOYLE on: 11/30/2023 01:33 PM Modules accepted: Orders [facility] Work Phone: 1([phone]) 904-962506-17-2024 Evaluation + Plan note* Assessment & Plan Note - ALAN Chi [...] control. I did recommend pain management or residential treatment specialist evaluation for possibility of cortisone injection if symptoms do not improve with PT and topical diclofenac gel. Patient wishes to discuss this with his PCP as well. I will be to follow-up here after PT, sooner for anychanges or concerns. This note was generated using Entrustet software. It may contain errors in wording, punctuation or spelling. [facility] Work Phone: [phone]) 664-815906-17-2024 Miscellaneous Notes* Assessment & Plan Note - [...] control. I did recommend pain management or residential treatment specialist evaluation for possibility of cortisone injection if symptoms do not improve with PT and topical diclofenac gel. Patient wishes to discuss this with his PCP as well. I will be to follow-up here after PT, sooner for anychanges or concerns. This note was generated using Entrustet software. It may contain errors in wording, punctuation or spelling. documented in this [facility] Work Phone: 1(479) 795-618806-17-2024 History of Present illness Narrative* ALAN Chi [...] symptoms are aggravated with use of a [place] which he does approximately twice a month. [...] Signs/Symptoms:pain 6 months. COMPARISON: None. ACCESSION NUMBER(S): [id number] ORDERING CLINICIAN: SANA DOYLE FINDINGS: Five views right shoulder: There is no fracture or dislocation. There is degenerative change of the right acromioclavicular joint with mild spurring superiorly and inferiorly. Impression: Mild right acromioclavicular joint osteoarthritis. MACRO: None Signed by: Yenny Perez 10/20/2023 8:40 AM Dictation workstation: [id number] XR shoulder left 2+ views Narrative: Interpreted By: Yenny Perez, STUDY: XR SHOULDER LEFT 2+ VIEWS; ; 10/19/2023 8:48 am INDICATION: Signs/Symptoms:pain. COMPARISON: None. ACCESSION NUMBER(S): [id number] ORDERING CLINICIAN: SANA DOYLE FINDINGS: Five views left shoulder: There is no fracture or dislocation. There is a degenerative change of the left acromioclavicular joint with mild spurring superiorly. Impression: Mild left acromioclavicular joint osteoarthritis. MACRO: None Signed by: Yenny Perez 10/20/2023 8:40 AM Dictation workstation: [id number] XR cervical spine 2-3 views Narrative: Interpreted By: Yenny Perez, STUDY: XR CERVICAL SPINE 2-3 VIEWS; 10/19/2023 8:48 am 3 views. INDICATION: Signs/Symptoms:neck pain and bilateral shoulder pain. COMPARISON: None. ACCESSION NUMBER(S): [id number] ORDERING CLINICIAN: SANA DOYLE FINDINGS: There is [...] Yenny Perez 10/20/2023 8:39 AM Dictation workstation: [id number] Assessment/Plan Encounter Diagnoses: Problem List Items Addressed [...] control. I did recommend pain management or residential treatment specialist evaluation for possibility of cortisone injection if symptoms do not improve with PT and topical diclofenac gel. Patient wishes to discuss this with his PCP as well. I will be to follow-up here after PT, sooner for anychanges or concerns. This note was generated using Entrustet software. It may contain errors in wording, punctuation or spelling. documented in this encounterW[facility] Work Phone: 1(109) 444-269306-03-2024 Evaluation + Plan note* Assessment & Plan [...] him with results and instructions on medication [facility] Work Phone: [phone]) 696-252806-03-2024 Evaluation + Plan note* Assessment & Plan [...] negative -I am referring him to orthopedics [facility] Work Phone: 1([phone]) 650-524606-03-2024 Miscellaneous Notes* Assessment & Plan Note - [...] referring him to orthopedics documented in this [facility] Work Phone: 1([phone]) 508-498106-03-2024 History of Present illness Narrative* Sana Doyle [...] he is lying in bed rolling from uunf-ql-ocwd he cannot get comfortable. 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 [...] Surgery Sana Doyle DO [facility]WV[facility] Work Phone: [phone] Instructions* Patient Instructions* Sana Doyle DO - [...] back as previously planned documented in this encounterUnWV[facility] Work Phone: [phone]) 308-189404-29-2024 Evaluation + Plan note* Assessment & Plan Note - Sana Doyle DO - 09/14/2023 7:18 AM EDTAssociated Problem(s): Gluten intolerance -He has agreed to go on a strict gluten-free diet and we will see what happens to his symptoms [facility] Work Phone: [phone] 136-756304-29-2024 Evaluation + Plan note* Assessment & Plan [...] him with results once they are known [facility] Work Phone: [phone]) 486-970704-29-2024 Miscellaneous Notes* Assessment & Plan Note - [...] be checking a CBC documented in this encounterW[facility] Work Phone: [phone]) 589-253404-29-2024 Evaluation + Plan note* Assessment & Plan Note - Sana Doyle DO - 09/14/2023 7:17 AM EDTAssociated Problem(s): Other fatigue -I will be checking a CBC [facility] Work Phone: [phone] History of Present illness Narrative* Sana Doyle, DO - 09/14/2023 7:00 AM EDT Subjective [...] symptoms Sana Doyle DO documented in this encounterW[facility] Work Phone: [phone] 446-358504-29-2024 Instructions* Patient Instructions* Sana Doyle DO - 09/14/2023 7:00 AM EDT As we discussed I will have you get lab work drawn today before leaving and once the results are known I will try to contact you via [employer] with the results. If you do not look at the message [email or web address] hours we will call you instead Please [...] opposed to getting better documented in this encounterW[facility]ot [facility] Work Phone: 1([phone]) 188-204704-01-2024 Evaluation + Plan note* Assessment & Plan Note - Sana Doyle DO - 08/17/2023 11:56 AM EDTAssociated Problem(s): Medicare annual wellness visit, subsequent -We discussed fall prevention and the importance of providing a copy of his advance directives [facility] Work Phone: [phone]) 667-229304-01-2024 Evaluation + Plan note* Assessment & Plan Note - Sana Doyle DO - 08/17/2023 11:56 AM EDTAssociated Problem(s): HTN (hypertension) -Currently very well-controlled and we will continue to monitor [facility] Work Phone: [phone] 624-176204-01-2024 Evaluation + Plan note* Assessment & Plan Note - Sana Doyle DO - 08/17/2023 11:56 AM EDTAssociated Problem(s): Hyperlipidemia LDL goal <100 -He will continue with atorvastatin 40 mg daily -He decided to stop taking fish oil and we will see what his cholesterol looks like at his next follow-up visit [facility] Work Phone: [phone] 778-908104-01-2024 Miscellaneous Notes* Assessment & Plan Note - [...] his next follow-up visit documented in this [facility] Work Phone: [phone] 691-967304-01-2024 History of Present illness Narrative* Sana Doyle [...] provide a copy of his power of litigation attorney associate for healthcare and living will. We also [...] General Sana Doyle DO as PCP - [facility] Attributed Provider Review of Systems Constitutional: [...] of his advance directives documented in this encounterW[facility] Work Phone: [phone] Instructions* Patient Instructions* Sana Doyle DO - 08/17/2023 11:20 AM EDT As we discussed I think overall your checkup is very good today Please try to remember to get 30 minutes of aerobic activity 5 days a week Please also try to provide a copy of your advance directives which would include the power of litigation attorney associate for healthcare and living will We would like to see you back in approximately 6 months and just prior to that visit please remember to get fasting lab work documented in this encounterW[facility] Work Phone: [phone] 376-836307-03-2023 Evaluation + Plan note* Assessment & Plan Note - Sana Doyle DO - 11/17/2022 8:25 AM EDTAssociated Problem(s): Hyperlipidemia LDL goal <100 -His cholesterol profile is excellent and we will check this annually per Medicare protocol -We are providing a refill on atorvastatin 40 mg daily [facility] Work Phone: [phone]) [phone] Evaluation + Plan note* Assessment & Plan [...] with results -We also discussed seeing a medical superintendent if he would like for a second opinion [facility] Work Phone: [phone] Miscellaneous Notes* Assessment & Plan Note - [...] with results -We also discussed seeing a medical superintendent if he would like for a second [...] to 10 mg daily documented in this encounterW[facility] Work Phone: [phone]) 978-599407-03-2023 Evaluation + Plan note* Assessment & Plan [...] work with his diet and exercise routine [facility] Work Phone: 1([phone]) 565-109507-03-2023 Evaluation + Plan note* Assessment & Plan Note - Sana Doyle DO - 11/17/2022 8:24 AM EDTAssociated Problem(s): HTN (hypertension) -Today's blood pressure was excellent -He will continue taking lisinopril 20 mg daily -He will call if he discovers that his blood pressure was lower or causing any significant symptomsas we would reduce the dose of his lisinopril to 10 mg daily [facility] Work Phone: [phone] 420-614707-03-2023 History of Present illness Narrative* Sana Doyle [...] with results -We also discussed seeing a medical superintendent if he would like for a second opinion Relevant Orders TSH Sana Doyle DO documented in this encounterW[facility] Work Phone: [phone] Instructions* Patient Instructions* Sana Doyle DO - 11/17/2022 8:00 AM EDT As we discussed we will have you get a thyroid blood test performed today before leaving and we will contact you with results If you would like to be referred to a medical superintendent for your hair loss please let us know Please continue the wonderful work with your diet and exercise regimen If everything goes according to plan we will see you back in approximately 6 months and please remember to get fasting lab work done just prior to that visit documented in this encounterW[facility] Work Phone: [phone]) 424-539706-23-2023 History of Present illness Narrativepatient is here [...] or MRI in the past. ED is mild.[facility] Work Phone: Evaluation note* Diagnosis Alopecia areata- Primary Hyperglycemia Other abnormal glucose Secondary hypertension Other secondary hypertension, unspecified Hyperlipidemia LDL goal <100 Other and unspecified hyperlipidemia documented in this encounter [facility] Work Phone: Evaluation note* Diagnosis Medicare annual wellness visit, subsequent- Primary Hyperlipidemia LDL goal <100 Other and unspecified hyperlipidemia Secondary hypertension Other secondary hypertension, unspecified Hyperglycemia Other abnormal glucose documented in this encounter [facility] Work Phone: Evaluation note* Diagnosis Polyarthropathy- Primary Unspecified polyarthropathy or polyarthritis, site unspecified Other fatigue Gastroesophageal reflux disease without esophagitis Esophageal reflux Gluten intolerance Celiac disease documented in this encounter [facility] Work Phone: Evaluation note* Diagnosis Polyarthropathy- Primary Unspecified polyarthropathy or polyarthritis, site unspecified Neck pain, chronic Chronic pain of both shoulders documented in this encounter [facility] Work Phone: Evaluation note* Diagnosis Chronic pain of both shoulders documented in this encounter [facility] Work Phone: Evaluation note* Diagnosis Neck pain, chronic Chronic pain of both shoulders documented in this encounter [facility] Work Phone: Evaluation note* Diagnosis Chronic pain of both shoulders- Primary Cervical spine arthritis Cervical spondylosis without myelopathy 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 documented in this encounter [facility] Work Phone: Evaluation note* Diagnosis Alopecia [...] and unspecified hyperlipidemia documented in this encounter [facility] Work Phone: Evaluation note* Diagnosis Alopecia [...] serum enzyme levels documented in this encounter [facility] Work Phone: Evaluation note* Diagnosis Primary [...] unspecified organism- Primary documented in this encounter [facility] Work Phone: Evaluation note* Diagnosis Primary [...] Unspecified essential hypertension [facility] [...] Mixed hyperlipidemia- Primary [facility] Consultation (Routine) - Authorized Specialty Diagnoses / Procedures Referred By Contac t Referred To Contact Primary Care Procedures Follow Up In Primary Care Sana Doyle DO [address] [facility] [place] [address] Referral ID Status Reason Start Date Expiration Date V isits Requested Visits Authorized [id number] Authorized 11/17/2022 05/16/2023 1 1 [facility] Work Phone: [employer] for referral (narrative)* Consultation (Routine) - Authorized Specialty Diagnoses / Procedures Referred By Contac t Referred To Contact Primary Care Procedures Follow Up In Primary Care Sana Doyle DO [address] [place] [address] Referral ID Status Reason Start Date Expiration Date V isits Requested Visits Authorized [id number] Authorized 08/17/2023 08/16/2024 1 1 [facility] Work Phone: [employer] for referral (narrative)* Consultation (Routine) - Authorized Specialty Diagnoses / Procedures Referred By Contac t Referred To Contact Primary Care Procedures Follow Up In Primary Care Sana Doyle DO [address] [place] [address] Referral ID Status Reason Start Date Expiration Date V isits Requested Visits Authorized [id number] Authorized 09/14/2023 09/13/2024 1 1 [facility] Work Phone: Reason for referral (narrative)* Consultation (Routine) - Authorized Specialty Diagnoses / Procedures Referred By Neel t Referred To Contact Orthopaedic Surgery / Orthopedic Surgery Diagnoses Chronic pain of both shoulders Sana Doyle DO [address] [facility] [place] [address] Referral ID Status Reason Start Date Expiration Date Visits Requested Visits Authorized [id number] Authorized Specialty Services Required 10/19/2023 10/18/2024 1 1 * Imaging (Routine) - Authorized Specialty Diagnoses / Procedures Referred By Neel t Referred To Contact Radiology Diagnoses Neck pain, chronic Chronic pain of both shoulders Procedures XR cervical spine 2-3 views Sana Doyle DO [address] [place] [address] Referral ID Status Reason Start Date Expiration Date Visits Requested Visits Authorized [id number] Authorized Perform Procedure 10/19/2023 10/18/2024 1 1 * Imaging (Routine) - Authorized Specialty Diagnoses / Procedures Referred By Neel t Referred To Contact Radiology Diagnoses Chronic pain of both shoulders Procedures XR shoulder left 2+ views Sana Doyle DO [address] [place] [address] Referral ID Status Reason Start Date Expiration Date Visits Requested Visits Authorized [id number] Authorized Perform Procedure 10/19/2023 10/18/2024 1 1 * Imaging (Routine) - Authorized Specialty Diagnoses / Procedures Referred By Contac t Referred To Contact Radiology Diagnoses Chronic pain of both shoulders Procedures XR shoulder right 2+ views Sana Doyle DO [address] [place] [address] Referral ID Status Reason Start Date Expiration Date Visits Requested Visits Authorized [id number] Authorized Perform Procedure 10/19/2023 10/18/2024 1 1 [facility] Work Phone: Relxhq for referral (narrative)* Consultation (Routine) - Pending Review Specialty Diagnoses / Procedures Referred By Contac t Referred To Contact Physical Therapy Diagnoses Chronic pain of both shoulders Cervical spine arthritis AC joint arthropathy Aleshia Elaine ENROLLER-MASH TUB COOKER [address] [facility] [place], [place] [id number] [address] Referral ID Status Reason Start Date Expiration Date Visits Requested Visits Authorized [id number] Pending Review Specialty Services Required 11/02/2023 11/01/2024 1 1 * Consultation (Routine) - Authorized Specialty Diagnoses / Procedures Referred By Contac t Referred To Contact Orthopaedic Surgery / Orthopedic Surgery Diagnoses Cervical spine arthritis AC joint arthropathy Procedures Follow Up In Orthopaedic Surgery Aleshia Elaine ENROLLER-SERA [address] [facility] [place], [place] [id number] Referral ID Status Reason Start Date Expiration Date V isits Requested Visits Authorized [id number] Authorized 11/02/2023 11/01/2024 1 1 [facility] Work Phone: Reason for referral (narrative)No reason for referral [facility] Work Phone: Summary Purpose Family History No [...] FoundDocuments on File Type Date Recorded Patient Administration Dean Expl anation Living Will 08/17/2023 11:46 AM Documents on File Type Date Recorded Patient Administration Dean Expl anation Living Will 08/17/2023 11:46 AM Healthcare Power of Atty 09/16/2023 HEALTHCARE POWER OF ATTY Documents on File Type Date Recorded Patient Administration Dean Expl anation Living Will 08/17/2023 11:46 AM Healthcare Power of Atty 09/16/2023 HEALTHCARE POWER OF ATTY Advance Directive Response Recorded Date/ Time Living Will No December 29 8:46am Do you have a Healthcare Power of Body Specialist? No December 29, 2024 8:46am Advance Directives No December 29, 2024 8:46am Chief Complaint * Pt is here today for a 6 month check up, review labs. No Complaints. This note was generated by using [employer] software. It may contain errors in wording, [...] states he also was advised by his painter barrel to take a baby aspirin once a [...] review. This note was generated by using En[employer] software. It may contain errors in wording, punctuate, or spelling. This note was generated by usingEntrustet software. It may contain errors in wording, [...] left 2+ views Sana Doyle DO [address] [facility] [place] [address] Referral ID Status Reason Start Date Expiration Date Visits Requested Visits Authorized [id number] Authorized Perform Procedure 10/19/2023 10/18/2024 1 1 Specialty Diagnoses / Procedures Referred By Neel caceres Referred To Contact Radiology Diagnoses Neck pain, chronic Chronic pain of both shoulders Procedures XR cervical spine 2-3 views Sana Doyle DO [address] [facility] [place] [address] Referral ID Status Reason Start Date Expiration Date Visits Requested Visits Authorized [id number] Authorized Perform Procedure 10/19/2023 10/18/2024 1 1 Specialty Diagnoses / Procedures Referred By Neel caceres Referred To Contact Radiology Diagnoses Chronic pain of both shoulders Procedures XR shoulder right 2+ views Sana Doyle DO [address] [facility] [place] [address] Referral ID Status Reason Start Date Expiration Date Visits Requested Visits Authorized [id number] Authorized Perform Procedure 10/19/2023 10/18/2024 1 1 [...] 9:5 4am Other specified soft tissue disorders [facility] 2024 10:31am Reason for Visit Admit Date [...] 9:5 4am Other specified soft tissue disorders [facility] 2024 10:31am Pain in R Groin September [...] 9:5 4am Other specified soft tissue disorders [facility] 2024 10:31am Pain in R Groin September [...] 28, 2024 1:25pm Chief Complaint Admit Date Pain in R Groin September 06, 2024 11: 15am RT LEG PAIN September 28, 2024 12:51 pm 3 M FU September 28, 2024 1:25p m RT LEG PAIN November 09, 2024 9:45 am Venous insufficiency (chronic) (peripher al) December 29, 2024 8:29am Venous insufficiency (chronic) (peripher al) December 29, 2024 9:40am Reason for Visit Admit Date Acute superficial [...] (chronic) (peripher al) September 28, 2024 1:25pm Symptomatic varicose veins of both lower extremities December 29, 2024 8:29am Chief Complaint Admit Date RT LEG PAIN September 28, 2024 12:51 pm 3 M FU September 28, 2024 1:25p m RT LEG PAIN November 09, 2024 9:45 am Venous insufficiency (chronic) (peripher al) December 29, 2024 8:29am Venous insufficiency (chronic) (peripher al) December 29, 2024 9:40am Venous insufficiency (chronic) (peripher al) January 02, 2025 8:47am Reason for Visit Admit Date Acute superficial venous thrombosis of r ight lower extremity September 28, 2024 1:25pm Stasis dermatitis of both legs September 28, 2024 1:25pm Symptomatic varicose veins of both lower extremities September 28, 2024 1:25pm Venous insufficiency (chronic) (peripher al) September 28, 2024 1:25pm Symptomatic varicose veins of both lower extremities December 29, 2024 8:29am Chief Complaint Admit Date RT LEG PAIN September 28, 2024 12:51 pm 3 M FU September 28, 2024 1:25p m RT LEG PAIN November 09, 2024 9:45 am Venous insufficiency (chronic) (peripher al) December 29, 2024 8:29am Venous insufficiency (chronic) (peripher al) December 29, 2024 9:40am Venous insufficiency (chronic) (peripher al) January 02, 2025 8:47am Post ablation 2-4 WK FU January 12 8:22am Reason for Visit Admit Date Acute superficial venous thrombosis of r ight lower extremity September 28, 2024 1:25pm Stasis dermatitis of both legs September 28, 2024 1:25pm Symptomatic varicose veins of both lower extremities September 28, 2024 1:25pm Venous insufficiency (chronic) (peripher al) September 28, 2024 1:25pm Symptomatic varicose veins of both lower extremities December 29, 2024 8:29am Symptomatic varicose veins of both lower extremities January 12, 2025 8:22am Venous insufficiency (chronic) (peripher al) January 12, 2025 8:22am Additional Source Comments (unrecognized sect ion and content) No Status Records FoundNo Status Records FoundNo Status Records FoundNo Status Records FoundNo Status Records FoundNo Status Records FoundNo Status Records FoundNo Status Records FoundNo Status Records FoundNo Status Records FoundNo Status Records Found INFORMATION SOURCE (unrecogn ized section and content) DATE CREATED AUTHOR 11/10/2017 [facility] DATE CREATED AUTHOR AUTHOR'S ORGANIZ ATION 11/10/2022 [employer] DATE CREATED AUTHOR AUTHOR'S ORGANIZ ATION 11/11/2022 [facility] DATE CREATED AUTHOR AUTHOR'S ORGANIZ ATION 11/17/2022 [facility] DATE CREATED AUTHOR AUTHOR'S ORGANIZ ATION 04/16/2024 [facility] DATE CREATED AUTHOR AUTHOR'S ORGANIZ ATION 04/20/2024 [facility] DATE CREATED AUTHOR AUTHOR'S ORGANIZ ATION 06/10/2024 [facility] DATE CREATED AUTHOR AUTHOR'S ORGANIZ ATION 08/28/2024 [facility] DATE CREATED AUTHOR AUTHOR'S ORGANIZ ATION 11/14/2024 [facility] DATE CREATED AUTHOR AUTHOR'S ORGANIZ ATION 11/20/2024 [facility] DATE CREATED AUTHOR AUTHOR'S ORGANIZ ATION 03/09/2025 [facility] Reason for Visit (unrecogniz ed section and content) Reason Comments Follow-up 6 MO FUV Reason Comments Follow-up Specialty Diagnoses / Procedures Referred By Contac t Referred To Contact Primary Care Procedures Follow Up In Primary Care Sana Doyle Edgar, DO [address] [place] [address] Referral ID Status Reason Start Date Expiration Date V isits Requested Visits Authorized [id number] Authorized 09/14/2023 09/13/2024 1 1 Specialty Diagnoses / Procedures Referred By Contac t Referred To Contact Radiology Diagnoses Chronic pain of both shoulders Procedures XR shoulder left 2+ views Kathi Doylekeeley Hernández, DO [address] [place] [address] Referral ID Status Reason Start Date Expiration Date Visits Requested Visits Authorized [id number] Authorized Perform Procedure 10/19/2023 10/18/2024 1 1 Specialty Diagnoses / Procedures Referred By Contac t Referred To Contact Radiology Diagnoses Neck pain, chronic Chronic pain of both shoulders Procedures XR cervical spine 2-3 views Kathi Doylekeeley Hernández, DO [address] [place] [address] Referral ID Status Reason Start Date Expiration Date Visits Requested Visits Authorized [id number] Authorized Perform Procedure 10/19/2023 10/18/2024 1 1 Specialty Diagnoses / Procedures Referred By Contac t Referred To Contact Radiology Diagnoses Chronic pain of both shoulders Procedures XR shoulder right 2+ views Sana Doyle, DO [address] [place] [address] Referral ID Status Reason Start Date Expiration Date Visits Requested Visits Authorized [id number] Authorized Perform Procedure 10/19/2023 10/18/2024 1 1 [...] of both shoulders Sana Doyle DO [address] [facility] [place] [address] Referral ID Status Reason Start Date Expiration Date Visits Requested Visits Authorized [id number] Authorized Specialty Services Required 10/19/2023 10/18/2024 1 1 Reason Comments Follow-up 6 mo follow, lab res ults Specialty Diagnoses / Procedures Referred By Neel caceres Referred To Contact Primary Care Procedures Follow Up In Primary Care Sana Doyle DO Phone: tel: fax: Referral ID Status Reason Start Date Expiration Date V isits Requested Visits Authorized [id number] Authorized 08/17/2023 08/16/2024 1 1 Reason Comments [...] Care Teams (unrecognized sec tion and content) Compacting Machine Operator/Tender Relationship Specialty Start Date End Date Sana Doyle DO [address] [facility] Office [place] [id number] PCP - General 07/19/19 Sana Doyle DO [address] [facility] [place] [address] PCP - MSSP ACO Attributed Provider 05/18/21 Compacting Machine Operator/Tender Relationship Specialty Start Date End Date Sana Doyle DO [address] [facility] [place] [address] PCP - General 07/19/19 Sana Doyle, [address] [facility] [place] [address] PCP - MSSP ACO Attributed Provider 05/18/21 Compacting Machine Operator/Tender Relationship Specialty Start Date End Date Sana Doyle DO [address] [facility] Office [place] [id number] PCP - General 07/19/19 Sana Doyle, [address] [facility] [place] [address] PCP - MSSP ACO Attributed Provider 05/18/21 Compacting Machine Operator/Tender Relationship Specialty Start Date End Date [facility] [place] [address] PCP - General 07/19/19 Sana Doyle, [address] [facility] [place] [address] PCP - MSSP ACO Attributed Provider 05/18/21 Compacting Machine Operator/Tender Relationship Specialty Start Date End Date [facility] [place] [id number] PCP - General 07/19/19 Sana Doyle DO [address] [facility] [place] [address] PCP - MSSP ACO Attributed Provider 05/18/21 Compacting Machine Operator/Tender Relationship Specialty Start Date End Date Sana Doyle DO [address] [facility] [place] [address] PCP - General 07/19/19 Sana Doyle, [address] [place] [address] [place] [address] PCP - MSSP ACO Attributed Provider 05/18/21 Compacting Machine Operator/Tender Relationship Specialty Start Date End Date Sana Doyle DO [address] [place] [address] Office [place] [id number] PCP - General 07/19/19 Sana Doyle DO [address] [place] [address] [place] [address] PCP - MSSP ACO Attributed Provider 05/18/21 Compacting Machine Operator/Tender Relationship Specialty Start Date End Date Sana Doyle DO [address] [address] PCP - General 07/19/19 Sana Doyle DO [address] [address] PCP - MSSP ACO Attributed Provider 05/18/21 Compacting Machine Operator/Tender Relationship Specialty Start Date End Date Sana Doyle DO [address] [place] [address] [place] [address] PCP - General 07/19/19 aSna Doyle DO [address] [facility] [place] [address] PCP - [facility] ACO Attributed Provider 05/18/21 Compacting Machine Operator/Tender Relationship Specialty Start Date End Date Harvinder Mendoza DO [address] [address] PCP - General Family Medicine 05/30/24 Team [...] Provider Active S tart: August 12, 2024 Compacting Machine Operator/Tender Relationship Specialty Start Date End Date Harvinder Mendoza DO [address] [address] PCP - General Family Medicine 05/30/24 Compacting Machine Operator/Tender Relationship Specialty Start Date End Date Royal Sana EdgarDO [address] [address] PCP - MSSP ACO Attributed Provider 05/18/21 Harvinder Mendoza DO [address] [address] PCP - General Family Medicine 08/26/24 Team [...] Provider Active S tart: November 09, 2024 Compacting Machine Operator/Tender Relationship Specialty Start Date End Date Harvinder Mendoza DO [address] [address] PCP - General Family Medicine 05/30/24 Jaylin Johnson MD [address] [facility] [address] [place] [address] Consulting Physician Dermatology 11/14/24 Lizbeth Guevara PA-C [address] [place], [place] [address] Vascular Surgery 11/14/24 Compacting Machine Operator/Tender Relationship Specialty Start Date End Date Harvinder Mendoza DO [address] [address] PCP - General Family Medicine 05/30/24 Jaylin Johnson MD [address] [facility] [address] [place] [address] Consulting Physician Dermatology 11/14/24 Lizbeth Guevara PA-C [address] [place] [address] Vascular Surgery 11/14/24 Team Status: Inactive Member Role/Relationship Status Dates [...] Provider Active S tart: November 09, 2024 SAMEER Burnett Referring Provider Active Star t: November 09, 2024 Team Status: Inactive Member Role/Relationship Status Dates Dr. Harvinder Mendoza DO Primary Care Provider Active Start: December 29, 2024 End: December 29, 2024 SAMEER Burnett Other Provider Active Start: A ugust 2024 End: December 29, 2024 Dr. Jose Alejandro Soto MD Attending Provider Active S tart: December 29, 2024 End: December 29, 2024 Dr. Jose Alejandro Soto MD Referring Provider Active S tart: December 29, 2024 End: December 29, 2024 Team Status: Active Member Role/Relationship Status Dates Dr. Harvinder Mendoza DO Primary Care Provider Active Start: December 29, 2024 SAMEER Burnett Other Provider Active Start: A ugust 2024 Dr. Jose Alejandro Soto MD Attending Provider Active S tart: December 29, 2024 Dr. Jose Alejandro Soto MD Referring Provider Active S tart: December 29, 2024 Dr. Jose Alejandro Soto MD Other Provider Active Start : December 29, 2024 Team Status: Inactive Member Role/Relationship Status [...] Provider Active S tart: November 09, 2024 SAMEER Burnett Referring Provider Active Star t: November 09, 2024 Team Status: Inactive Member Role/Relationship Status Dates Dr. Harvinder Mendoza DO Primary Care Provider Active Start: December 29, 2024 End: December 29, 2024 SAMEER Burnett Other Provider Active Start: A 2024 End: December 29, 2024 Dr. Jose Alejandro Soto MD Attending Provider Active S tart: December 29, 2024 End: December 29, 2024 Dr. Jose Alejandro Soto MD Referring Provider Active S tart: December 29, 2024 End: December 29, 2024 Team Status: Active Member Role/Relationship Status Dates Dr. Harvinder Mendoza DO Primary Care Provider Active Start: December 29, 2024 SAMEER Burnett Other Provider Active Start: A 2024 Dr. Jose Alejandro Soto MD Attending Provider Active S tart: December 29, 2024 Dr. Jose Alejandro Soto MD Referring Provider Active S tart: December 29, 2024 Dr. oJse Alejandro Soto MD Other Provider Active Start : December 29, 2024 Team Status: Inactive Member Role/Relationship Status Dates Dr. Harvinder Mendoza DO Primary Care Provider Active Start: January 02, 2025 End: January 02, 2025 SAMEER Burnett Attending Provider Active Star t: January 02, 2025 End: January 02, 2025 SAMEER Burnett Referring Provider Active Star t: January 02, 2025 End: January 02, 2025 Team Status: Active Member Role/Relationship Status Dates Dr. Harvinder Mendoza DO Primary Care Provider Active Start: January 02, 2025 Dr. Jose Alejandro Soto MD Attending Provider Active S tart: January 02, 2025 Team Status: Inactive Member Role/Relationship Status Dates Dr. Harvinder Mendoza DO Primary Care Provider Active Start: January 12, 2025 End: January 12, 2025 Dr. Harvinder Mendoza DO Referring Provider Active S tart: January 12, 2025 End: January 12, 2025 SAMEER Burnett Attending Provider Active Star t: January 12, 2025 End: January 12, 2025 Compacting Machine Operator/Tender Relationship Specialty Start Date End Date Harvinder Mendoza DO [address] [place] [id number] PCP - General Family Medicine 05/30/24 Jaylin Johnson MD [address] [place], [place] [id number] Consulting Physician Dermatology 11/14/24 Lizbeth Guevara PA-C [address] [place] [address] Vascular Surgery 11/14/24 Goals (unrecognized section and [...] BE BASED ON THE PRIMARY CLINICAL RECORDS. [employer] provides no warranty or guarantee of the accuracy or completeness of information in this document.
--- NOTE | 2025-03-16 08:47 | PCM.HP.STD ---
HPI - General HPI Narrative NANCIE PATEL, is a 69 M who presents with right lower extremity venous insufficiency with multiple episodes of painful SVT primarily in the GSV and associated varicosities. He had successful chemical ablation of the LLE earier this year. His most recent right GSV thrombus has mostly resolved with some residual chronic appearance in thigh portions. [facility] Medical History Hypertension Home Medications ?Medication ?Instructions ?Recorded ?Last Taken ?Type aspirin 81 mg tablet,delayed 81 mg PO QDAY 06/14/24 Unknown History release (Adult Low Dose Aspirin) lisinopril 20 mg tablet 20 mg PO QDAY 06/14/24 Unknown History ascorbate calcium (vitamin C) 500 1 g PO QDAY 06/29/24 Unknown History mg capsule lutein 40 mg capsule 40 mg PO QDAY 06/29/24 Unknown History omega 7-nvd-rmj-fish oil 1,000 mg 2 cap PO DAILY Cholesterol 03/15/25 Unknown History (120 mg-180 mg) capsule (Fish Oil) red yeast rice 600 mg capsule 1,200 mg PO DAILY Cholesterol 03/15/25 Unknown History rosuvastatin 5 mg tablet 5 mg PO DAILY Cholesterol 03/15/25 Unknown History Allergy/AdvReac Type Severity Reaction Status Date / Time penicillin G Allergy Severe Rash Verified 01/12/25 08:34 Family History Other CVA (cerebral vascular accident) Hypertension Surgical History H/O basal cell carcinoma excision (~2024) Social History Smoking Status: Former smoker Tobacco: How many years used: 2 ROS Constitutional Constitutional: Denies chills, fever(s), frequent falls, lethargy or weakness Eyes Eyes: Denies blind spots, change in vision or loss of vision ENT HEENT: Denies bleeding gums, hoarseness or sore throat Cardiovascular Cardiovascular: Denies abdominal pain, bluish discoloration of hand/feet, chest pain with activity, claudication, cold extremities, cyanosis, dyspnea on exertion, erythema on extremities, irregular heart rhythm, leg edema, leg ulcers, numbness in extremities or weakness in extremities Respiratory/Chest Respiratory/Chest: Denies cough, excessive phlegm production, shortness of breath at rest, shortness of breath with exertion or wheezing Gastrointestinal Gastrointestinal: Denies anorexia, change in stool character, constipation, diarrhea, melena or rectal bleeding Genitourinary Genitourinary: Denies dysuria or hematuria Musculoskeletal Musculoskeletal: Denies abnormal gait Integumentary Integumentary: Reports other Details: ; Denies erythema, non-healing lesions or wounds Neurologic Neurologic: Denies abnormal speech, focal weakness, headache(s), loss of vision, numbness, paresthesias or sensory deficit Hematologic/Lymphatic Hematologic/Lymphatic: Denies easy bleeding, easy bruising or lymphadenopathy Vital Signs Vital Signs Vital Signs: Weight Weight: 220 lb Body Mass Index (BMI) 29.0 Physical Exam Const alert, oriented x3, no apparent distress and healthy appearing General Appearance: cooperative; Negative for combative or lethargic Orientation / Consciousness: awake Exam Limitations: no limitations HEENT Head and Scalp: normocephalic and atraumatic Eyes EOMs intact bilaterally General Eye: normal appearance of both eyes Neck full ROM General: trachea midline Resp normal respiratory effort and no use of accessory muscles Effort and Inspection: Negative for labored, stridor or audible wheezes Cardio regular rate and regular rhythm Back/Spine Cervical Spine: cervical ROM normal Extremity full ROM, normal capillary refill and no clubbing, cyanosis or edema Skin no rashes or lesions noted and no wounds Neuro oriented x3, CN's II-XII intact bilaterally, no focal motor deficits and no sensory deficits noted Psych thought process normal, cooperative, affect normal, speech normal and activity/motor behavior normal Assessment & Plan Assessment/Plan (1) Symptomatic varicose veins of both lower extremities: PLAN: -with pain/recurrent phlebitis -chemical ablation right GSV
--- NOTE | 2025-03-16 14:28 | OP.PCM_ITS ---
Operative Report (Standard) Operative Information Date of Procedure: 03/16/25 Pre-Operative Diagnosis: Venous insufficiency and varicose veins with recurrent episodes of superficial phlebitis and pain of the right lower extremity Post-Operative Diagnosis: Same Surgery/Procedure Performed: Right great saphenous chemical ablation wildlife protector: No Type of Anesthesia: Local Procedure Start Time: 09:00 Procedure Stop Time: 09:30 Select all DRAINS/GRAFTS/IMPLANTS that apply: None Estimated Blood Loss: 2 Specimen collected: No Description of surgery: HPI: Patient is a 69-year-old male with longstanding chronic venous insufficiency with multiple dilated varicosities that have been subject to intermittent thrombosis causing phlebitis and pain. He is taken now for chemical ablation of the right great saphenous vein. Description of procedure: Upon obtaining informed consent and verification of correct patient procedure and site the patient was taken the Cork Tile Floor Layer where he was positioned prepped and draped in usual sterile fashion. Timeout was performed and the great saphenous vein evaluated with ultrasound. From the ankle to the distal thigh it was patent and of adequate caliber for treatment. Beginning at the mid thigh and cephalad the vessel had significant chronic appearing thrombus which was near occlusive. Given the appearance of the more superficial extent of the vein it was felt that is still beneficial to ablate the more inferior aspect in the hopes that the remnant of the superior aspect would spontaneously thrombosed and be functionally ablated. Skin overlying the great saphenous vein at the medial malleolus was anesthetized 1% lidocaine the vessel accessed with a micropuncture needle wire under ultrasound guidance. This exchanged for 7 Brazilian ablation sheath which was advanced without difficulty. Through the sheath the chemical ablation guide was advanced under ultrasound guidance to the near occlusive segment of chronic SVT. Next the glue delivery catheter was advanced and glue was deposited along the treatment zone from the chronic thrombus down to the access sheath. Upon completion of the glue deposition the guide and catheter withdrawn followed by sheath removal and manual pressure till hemostasis was observed. The great saphenous vein at the saphenofemoral junction was assessed and there is no evidence of glue transit and there was no evidence of deep vein thrombosis. Dry sterile dressing and Alex wrap were then applied the patient was taken recovery area plan discharge to home. Surgical Findings: See above Complications Complications: No
== END 2025-03-16 10:00 | disposition home or self-care (01) ==
PROVIDERS: PCP Family Medicine; Referring Provider Surgery Trauma Surgery; Visit Provider Surgery Trauma Surgery
DX: I83.813 Varicose veins of bilateral lower extremities with pain (principal); I87.2 Venous insufficiency (chronic) (peripheral); I10 Essential (primary) hypertension; Z79.82 Long term (current) use of aspirin; Z87.891 Personal history of nicotine dependence; Z86.72 Personal history of thrombophlebitis
CPT/HCPCS: 36482; C1894

== ENCOUNTER → 2025-03-20 | Outpatient (CLI) | payer MEDICARE, OTHER, SELFPAY ==
--- NOTE | 2025-03-20 08:56 | VDLE_ITS ---
Reason For Study VL/Venous Duplex US, Unilateral
== END | disposition home or self-care (01) ==
PROVIDERS: PCP Family Medicine; Referring Provider Surgery Trauma Surgery; Visit Provider Surgery Trauma Surgery
DX: I83.893 Varicose veins of bilateral lower extremities with other complications (principal)
CPT/HCPCS: 93971